=== PATIENT | female | born 1985 | race Caucasian/White ===

== ENCOUNTER 2025-02-05 10:01 | Emergency (ER) | payer OTHER, SELFPAY ==
[2025-02-05] VITALS (19 sets, daily range): BP systolic 130–158; BP diastolic 98–111; PULSE 85–111; TEMP 36.7; O2SAT 97–100; BMI 20.2
--- NOTE | 2025-02-05 10:09 | ECG_ITS ---
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 Measurements Intervals [place] Rate: 91 P: 63 [place]: 124 QRS: 94 QRSD: 92 T: 62 QT: 350 QTc: 399 Interpretive Statements 1100 Sinus rhythm 7102 Moderate right axis deviation Borderline ECG No previous ECG available for comparison Electronically Signed On 02-06-2025 15:10:07 EDT by ADEOLA CUEVAS M.D.
[2025-02-05 10:26] LABS: Basophils Percent Auto 0.4 % (0.2-2.0); Eosinophils Absolute Auto 0.1 10^3/uL (0.0-0.7); Eosinophils Percent Auto 0.9 % (0.9-7.0); Hematocrit 40.5 % (36.0-48.0); Hemoglobin 13.2 g/dL (12.0-16.0); Immature Granulocytes Abs Auto 0.03 10^3/uL (0.00-0.03); Immature Granulocytes Pct Auto 0.4 % (0.0-0.5); Lymphocytes Absolute Auto 1.7 10^3/uL (1.2-3.8); Lymphocytes Percent Auto 19.7 % (20.5-60.0); Mean Corpuscular HGB Conc 32.6 g/dL (29.9-35.2); Mean Corpuscular Hemoglobin 30.3 pg (26.7-34.0); Mean Corpuscular Volume 93.1 fL (81.0-99.0); Mean Platelet Volume 8.7 fL (9.5-13.5); Monocytes Absolute Auto 0.8 10^3/uL (0.3-0.8); Monocytes Percent Auto 8.8 % (1.7-12.0); Neutrophils Percent Auto 69.8 % (43.0-75.0); Platelet Count 393 10^3/uL (150-450); Red Blood Count 4.35 10^6/uL (4.20-5.40); Red Cell Distribution Width 13.5 % (11.0-15.0); White Blood Count 8.5 10^3/uL (4.0-11.0)
[2025-02-05 10:37] LABS: HCG Qualitative NEGATIVE (NEGATIVE); Internal Control Within Normal Limits
[2025-02-05 10:39] LABS: INR 1.05; Prothrombin Time 11.1 sec (9.0-11.6)
[2025-02-05 10:41] LABS: Alanine Aminotransferase 8 U/L (14-59); Albumin Globulin Ratio 1.2; Albumin Level 3.9 g/dL (3.4-5.0); Alkaline Phosphatase 95 U/L (46-116); Aspartate Amino Transferase 13 U/L (15-37); Bilirubin Total 0.4 mg/dL (0.2-1.0); Carbon Dioxide 29.1 mmol/L (21.0-32.0); Chloride 106 mmol/L (98-107); Estimated GFR (African America >60 (>=60 mL/min/1.73m^2); Estimated GFR (Non-African Ame >60 (>=60 mL/min/1.73m^2); Globulin 3.3 g/dL; Glucose 99 mg/dL (74-106); Potassium 4.1 mmol/L (3.5-5.1); Sodium 143 mmol/L (136-145); Total Protein 7.2 g/dL (6.4-8.2); Troponin I High Sensitivity <4.0 pg/mL (4.0-51.3)
[2025-02-05] MEDS: NITROGLYCERIN 0.4 MG BOTTLE SL (10:50)
[2025-02-05 11:02] LABS: Amphetamine Screen Urine NEGATIVE (NEGATIVE); Barbiturates Screen Urine NEGATIVE (NEGATIVE); Benzodiazepines Screen Urine NEGATIVE (NEGATIVE); Buprenorphine Screen Urine POSITIVE (NEGATIVE); Cannabinoid Screen Urine NEGATIVE (NEGATIVE); Cocaine Screen Urine NEGATIVE (NEGATIVE); Methadone Screen Urine NEGATIVE (NEGATIVE); Methamphetamines Screen Urine NEGATIVE (NEGATIVE); Opiate Screen Urine NEGATIVE (NEGATIVE); Oxycodone Screen Urine NEGATIVE (NEGATIVE); Phencyclidine Screen Urine NEGATIVE (NEGATIVE); Tricyclic Antidepressant Urine NEGATIVE (NEGATIVE)
[2025-02-05] MEDS: KETOROLAC TROMETHAMINE 30 MG/ML VIAL 15 MG IVP (11:27)
[2025-02-05] MEDS: FAMOTIDINE/PF 20 MG/2 ML VIAL IV (11:28)
[2025-02-05 11:45] LABS: Troponin I High Sensitivity <4.0 pg/mL (4.0-51.3)
--- NOTE | 2025-02-05 12:10 | ED.CHESTPAI1 ---
HPI - Chest Pain General Chief Complaint: Chest Pain Stated Complaint: CHEST PAIN Time Seen by Provider: 02/05/25 10:08 Source: patient Mode of arrival: ambulance Limitations: no limitations History of Present Illness HPI narrative: The patient is coming to the ER to be evaluated for left-sided chest pain, that the pain started usually with a headache in the left side addition to left sided neck pain and left arm pain and left side chest pain, patient mentioned that she have a history of smoking cigarette and she smoked less than 1 pack of cigarette daily The patient also have a history of coronary artery disease in her grandfather as well as her parents and in the specification of the age The patient apparently was evaluated for something similar almost 2 weeks ago in [facility] where she was discharged to follow-up with cardiology as outpatient for possible stress test She has been trying to reach cardiology but could not reach him to get a stress test done Patient takes Suboxone for opiate use disorder No history of trauma or fall and she does have a history of chronic neck pain although she does not have neck pain right now Related Data Previous Rx's ?Medication ?Instructions ?Recorded meloxicam 15 mg tablet 15 mg PO DAILY PRN pain #10 tabs 02/05/25 Allergies Allergy/AdvReac Type Severity Reaction Status Date / Time amoxicillin Allergy Severe Anaphylaxis Verified 02/05/25 10:07 tramadol Allergy Severe Anaphylaxis Verified 02/05/25 10:07 hydroxyzine (From Atarax) Allergy Intermediate Vomiting Verified 02/05/25 10:07 Review of Systems ROS Status of ROS 10 or more systems reviewed and unremarkable except as noted in history and below PFSH PFSH Social History Little interest or pleasure in doing things: not at all Feeling down, depressed, or hopeless: not at all Exam Narrative Exam Narrative: Nurses notes and vital signs reviewed and patient is not hypoxic. General: Well-appearing and in no apparent distress. Skin: Warm, dry, no pallor noted. No rash. Head: Normocephalic, atraumatic. Neck: Supple, non-tender. Cardiovascular: Regular Rate and Rhythm without murmur, gallop or rub. Respiratory: No accessory muscle use or respiratory distress. Lungs are clear to auscultation, no wheezing, rales or rhonchi Chest Wall: no tenderness Back: No midline thoracic or lumbar vertebral tenderness. No CVA tenderness Musculoskeletal: normal ROM, no calf or popliteal tenderness, no lower extremity edema/swelling GI: Abdomen is soft, non-distended. Normal bowel sounds. No masses appreciated. No tenderness to palpation. No rebound, guarding, or rigidity noted. Neurological: A&O x4. No cranial nerve dysfunction observed. Constitutional Vital Signs, click to edit/add: Last Vital Signs Temp 98.1 F 02/05/25 10:02 Pulse 86 02/05/25 12:40 Resp 18 02/05/25 12:40 BP 140/111 H 02/05/25 12:00 Pulse Ox 100 02/05/25 12:40 O2 Del Method Room Air 02/05/25 12:40 Course Vital Signs Vital signs: Vital Signs Temperature 98.1 F 02/05/25 10:02 Pulse Rate 107 H 02/05/25 10:02 Respiratory Rate 15 02/05/25 10:02 Blood Pressure 130/98 H 02/05/25 10:02 Pulse Oximetry 100 02/05/25 10:02 Oxygen Delivery Method Room Air 02/05/25 10:02 Temperature 98.1 F 02/05/25 10:02 Pulse Rate 86 02/05/25 12:40 Respiratory Rate 18 02/05/25 12:40 Blood Pressure 140/111 H 02/05/25 12:00 Pulse Oximetry 100 02/05/25 12:40 Oxygen Delivery Method Room Air 02/05/25 12:40 MDM - Chest Pain MDM Narrative Medical decision making narrative: The patient EKG was showing sinus rhythm with a heart rate of [address] elevation or depression Chest x-ray showed no acute pathology Patient CBC and chemistry showed no acute pathology with a troponin repeated twice The patient presentation is is not specific for coronary artery disease specially with the workup done showing no acute pathology although she does have risk factor with her smoking history and her family history She was referred to the stress test at the outpatient with cardiology service Right now she will be treated with Mobic for possible atypical chest pain The patient is to follow up with primary care physician in next 2-3 days or to return to the emergency department should any of the signs or symptoms worsen or new symptoms develop. The patient agrees with the following Diagnosis and Treatment plan and the patient will be discharged home. Lab Data Labs: Lab Results 02/05/25 02/05/25 02/05/25 Range/Units 10:13 10:43 11:21 WBC 8.5 (4.0-11.0) 10^3/uL RBC 4.35 (4.20-5.40) 10^6/uL Hgb 13.2 (12.0-16.0) g/dL Hct 40.5 (36.0-48.0) % MCV 93.1 (81.0-99.0) fL MCH 30.3 (26.7-34.0) pg MCHC 32.6 (29.9-35.2) g/dL RDW 13.5 (11.0-15.0) % Plt Count 393 (150-450) 10^3/uL MPV 8.7 L (9.5-13.5) fL Neut % (Auto) 69.8 (43.0-75.0) % Lymph % (Auto) 19.7 L (20.5-60.0) % [place] % (Auto) 8.8 (1.7-12.0) % Eos % (Auto) 0.9 (0.9-7.0) % Baso % (Auto) 0.4 (0.2-2.0) % Neut # (Auto) 6.0 (1.4-6.5) 10^3/uL Lymph # (Auto) 1.7 (1.2-3.8) 10^3/uL [place] # (Auto) 0.8 (0.3-0.8) 10^3/uL Eos # (Auto) 0.1 (0.0-0.7) 10^3/uL Baso # (Auto) 0.0 (0.0-0.1) 10^3/uL Abs Immat Gran (auto) 0.03 (0.00-0.03) 10^3/uL Imm/Tot Granulo (auto) 0.4 (0.0-0.5) % PT 11.1 (9.0-11.6) sec INR 1.05 Sodium 143 (136-145) mmol/L Potassium 4.1 (3.5-5.1) mmol/L Chloride 106 (98-107) mmol/L Carbon Dioxide 29.1 (21.0-32.0) mmol/L Anion Gap 12.0 BUN 7.0 (7.0-18.0) mg/dL Creatinine 0.78 (0.55-1.02) mg/dL Est GFR ( Amer) >60 (>=60 mL/min/1.73m^2) Est GFR (Non-Af Amer) >60 (>=60 mL/min/1.73m^2) BUN/Creatinine Ratio 9.0 Glucose 99 (74-106) mg/dL Calcium 9.0 (8.5-10.1) mg/dL Total Bilirubin 0.4 (0.2-1.0) mg/dL AST 13 L (15-37) U/L ALT 8 L (14-59) U/L Alkaline Phosphatase 95 (46-116) U/L Troponin I High Sens <4.0 L <4.0 L (4.0-51.3) pg/mL Total Protein 7.2 (6.4-8.2) g/dL Albumin 3.9 (3.4-5.0) g/dL Globulin 3.3 g/dL Albumin/Globulin Ratio 1.2 Serum HCG, Qual Negative (NEGATIVE) Urine Opiates Screen Negative (NEGATIVE) Ur Buprenorphine Scrn Positive A (NEGATIVE) Ur Oxycodone Screen Negative (NEGATIVE) Urine Methadone Screen Negative (NEGATIVE) Ur Barbiturates Screen Negative (NEGATIVE) U Tricyclic Antidepress Negative (NEGATIVE) Ur Phencyclidine Scrn Negative (NEGATIVE) Ur Amphetamines Screen Negative (NEGATIVE) U Methamphetamines Scrn Negative (NEGATIVE) U Benzodiazepines Scrn Negative (NEGATIVE) Urine Cocaine Screen Negative (NEGATIVE) U Cannabinoids Screen Negative (NEGATIVE) Discharge Plan Discharge Chief Complaint: Chest Pain Clinical Impression: Atypical chest pain, Chest pain Patient Disposition: Home, Self-Care Time of Disposition Decision: 12:10 Condition: Good Prescriptions / Home Meds: New meloxicam 15 mg tablet 15 mg PO DAILY PRN (Reason: pain ) Qty: 10 0RF Print Language: Indian Instructions: Chest Pain (DC) Referrals: Physician,Non-Staff, [Primary Care Provider] - 1 week KERRI BYERS MD [Physician] - As soon as possible ( [facility] [address] [place] [address]) Discharge Date/Time: 02/05/25 12:41
== END 2025-02-05 12:41 | disposition home or self-care (01) ==
PROVIDERS: Emergency Provider Emergency Medicine
DX: R07.89 Other chest pain (principal); F17.210 Nicotine dependence, cigarettes, uncomplicated; F11.20 Opioid dependence, uncomplicated; R07.9 Chest pain, unspecified
CPT/HCPCS: 36415; 71045; 80053; 80307; 84484; 84703; 85025; 85610; 93005; 96374; 96375; 99285; J1885; J3490

== ENCOUNTER 2025-03-04 19:15 | Observation (INO) | payer OTHER, SELFPAY ==
[2025-03-04] VITALS (7 sets, daily range): BP systolic 110–138; BP diastolic 71–94; PULSE 79–97; TEMP 36.8; O2SAT 97–100; BMI 21.1
--- NOTE | 2025-03-04 19:54 | ED_ITS ---
HPI HPI - General Adult General Chief complaint: Extremity Problem, Nontraumatic Stated complaint: UTI Back Pain Time Seen by Provider: 03/04/25 19:36 Source: patient Mode of arrival: walk-in Limitations: no limitations History of Present Illness HPI narrative: past history of lumbar stenosis chronic back pain. Presents with 3 day history of increased pain of her lower back. Pain into her left leg down to her foot. She is not incontinent of urine but has difficulty trying to start urinary flow. Last urination was this AM. States before 3 days ago she never had a problem starting her flow. Her legs are not weak and she is able to walk. No associated abdominal pain. No fever or injury. No recent procedure to her spine. states her left lower leg at he ankle was swollen earlier but this has resolved Related Data Home Medications ?Medication ?Instructions ?Recorded ?Confirmed aspirin 81 mg tablet,delayed 81 mg PO DAILY 03/04/25 0 03/04/25 release buprenorphine 8 mg-naloxone 2 mg 1 film sublingual KIRSTIE LY 03/04/25 03/04/25 sublingual film cholecalciferol (vitamin D3) 50 50 mcg PO DAILY 03/04/25 mcg (2,000 unit) tablet (Vitamin D3) hydroxyzine pamoate 50 mg capsule 50 mg PO TID PRN anx iety 03/04/25 03/04/25 naloxone 4 mg/actuation nasal spray 1 spray intranasal Q3M PRN opioid 03/04/25 03/04/25 overdose sertraline 50 mg tablet 50 mg PO DAILY 03/04/2502/05 Previous Rx's ?Medication ?Instructions ?Recorded meloxicam 15 mg tablet 15 mg PO DAILY PRN pain #10 tabs 02/05/25 Allergies Allergy/AdvReac Type Severity Reaction Status Date / Time amoxicillin Allergy Severe Anaphylaxis Verified 03/04/25 19:20 tramadol Allergy Severe Anaphylaxis Verified 03/04/25 19:20 hydroxyzine (From Atarax) Allergy Intermediate Vomiting Verified 03/04/25 19:20 Opioid HPI Opioid Management Most Recent Opioid Data: 2 Last Pain Scale 8 02/05/25, 12:11 Ur Phencyclidine Scrn, (NEGATIVE) Negative , 10:43 Review of Systems 2 ROS0 Status of ROS 10 or more systems reviewed and unremark able except as noted in history and below PFSH PFSH Social History Little interest or pleasure in doing things: not at all Feeling down, depressed, or hopeless: not at all Exam Constitutional Vital Signs, click to edit/add: Last Vital Signs Temp 98.3 F 03/04/25 19:21 Pulse 97 H 03/04/25 21:53 Resp 18 03/04/25 21:53 BP 138/88 03/04/25 21:53 Pulse Ox 100 03/04/25 21:53 O2 Del Method Room Air 03/04/25 19:21 Common normals: no apparent distress, average body habitus, oriented x3, no limitations, healthy appearing, alert and well nourished HENVA Common normals: normocephalic and head/scalp atraumatic Eye Common normals: PERRL and EOMs intact bilaterally Respiratory Common normals: normal respiratory effort, no retractions, no use of accessory muscles and clear to auscultation bilaterally Cardio Common normals: regular rate, regular rhythm, S1 normal heart sound and S2 normal heart sound GI Common normals: Normal to inspection, nondistended, normoactive bowel sounds present, soft to palpation and non-tender Back & Pelvis Back image (female): 2 1. focal tenderness. sacrum nontender Extremity Common normals: normal to inspection and full ROM Neuro Common normals: oriented x3, CN's II-XII intact bilaterally, moves all extremities and no focal motor deficits Psych Appearance: grossly normal Course Vital Signs Vital signs: Vital Signs Temperature 98.3 F 03/04/25 19:21 Pulse Rate 91 H 03/04/25 19:21 Respiratory Rate 17 03/04/25 19:21 Blood Pressure 132/92 H 03/04/25 19:21 Pulse Oximetry 99 03/04/25 19:21 Oxygen Delivery Method Room Air 03/04/25 19:21 Temperature 98.3 F 03/04/25 19:21 Pulse Rate 97 H 03/04/25 21:53 Respiratory Rate 18 03/04/25 21:53 Blood Pressure 138/88 03/04/25 21:53 Pulse Oximetry 100 03/04/25 21:53 Oxygen Delivery Method Room Air 03/04/25 19:21 Medical Decision Making [facility] Narrative Medical decision making narrative: chronic back pain patient. Known disc disease. Presents with left sciatica symptoms for the past 3 days. Pain radiates to her foot. leg is not weak. She is having difficulty starting her urinary flow which was not a problem in the past. Exam neg except for focal tenderness of her left back. Initial bladder scan with 60cc of urine. Patient given liter of normal saline and repeat scan with 260cc. Patient again describes difficulty trying to urinate but was able to produce 50cc. Discussed with Neurosurgeon at [facility] in [place] Dr Weaver. He stated because it has been 3 days the patient can stay here for MRI in the AM and we can re consult NeuroSurgery if needed. Lab Data Labs: Lab Results 03/04/25 03/04/25 Range/Units 20:00 20:05 WBC 9.1 (4.0-11.0) 10^3/uL RBC 4.08 L (4.20-5.40) 10^6/uL Hgb 12.7 (12.0-16.0) g/dL Hct 38.0 (36.0-48.0) % MCV 93.1 (81.0-99.0) fL MCH 31.1 (26.7-34.0) pg MCHC 33.4 (29.9-35.2) g/dL RDW 13.6 (11.0-15.0) % Plt Count 378 (150-450) 10^3/uL MPV 8.7 L (9.5-13.5) fL Neut % (Auto) 61.0 (43.0-75.0) % Lymph % (Auto) 28.5 (20.5-60.0) % [place] % (Auto) 8.5 (1.7-12.0) % Eos % (Auto) 1.3 (0.9-7.0) % Baso % (Auto) 0.4 (0.2-2.0) % Neut # (Auto) 5.5 (1.4-6.5) 10^3/uL Lymph # (Auto) 2.6 (1.2-3.8) 10^3/uL [place] # (Auto) 0.8 (0.3-0.8) 10^3/uL Eos # (Auto) 0.1 (0.0-0.7) 10^3/uL Baso # (Auto) 0.0 (0.0-0.1) 10^3/uL Abs Immat Gran (auto) 0.03 (0.00-0.03) 10^3/uL Imm/Tot Granulo (auto) 0.3 (0.0-0.5) % Sodium 142 (136-145) mmol/L Potassium 3.5 (3.5-5.1) mmol/L Chloride 105 (98-107) mmol/L Carbon Dioxide 28.2 (21.0-32.0) mmol/L Anion Gap 12.3 BUN 13.0 (7.0-18.0) mg/dL Creatinine 0.93 (0.55-1.02) mg/dL Est GFR ( Amer) >60 (>=60 mL/min/1.73m^2) Est GFR (Non-Af Amer) >60 (>=60 mL/min/1.73m^2) BUN/Creatinine Ratio 14.0 Glucose 88 (74-106) mg/dL Calcium 8.8 (8.5-10.1) mg/dL C-Reactive Protein <0.50 (<=0.50) mg/dL Urine Color Yellow (YELLOW) Urine Clarity Sl cloudy (CLEAR) Urine pH 6.0 (5.0-9.0) Ur Specific [place] 1.025 (1.005-1.025) Urine Protein Trace (NEG/TRACE) mg/dL Urine Glucose (UA) Negative (NEGATIVE) mg/dL Urine Ketones Trace A (NEGATIVE) mg/dL Urine Occult Blood Negative (NEGATIVE) Urine Nitrite Negative (NEGATIVE) Urine Bilirubin Negative (NEGATIVE) Urine Urobilinogen 1.0 (0.2-1.0) EU/dL Ur Leukocyte Esterase Small A (NEGATIVE) Urine RBC 0-2 (0-2) #/HPF Urine WBC 2-5 A (NONE SEEN) #/HPF Ur Squamous Epith Cells Many A (NONE/RARE) #/LPF Urine Crystals None seen (None Seen) #/HPF Urine Bacteria Moderate A (NONE SEEN) #/HPF Urine Casts None seen (NONE SEEN) #/LPF Urine Mucus Trace A (NONE SEEN) Ur [place] [place] Dis[place] Chief Complaint: Extremity Problem, Nontraumatic Clinical Impression: Left sided sciatica, Urinary retention with incomplete bladder emptying Patient Disposition: Admitted as Observation
[2025-03-04 20:11] LABS: Basophils Percent Auto 0.4 % (0.2-2.0); Eosinophils Absolute Auto 0.1 10^3/uL (0.0-0.7); Eosinophils Percent Auto 1.3 % (0.9-7.0); Hemoglobin 12.7 g/dL (12.0-16.0); Immature Granulocytes Abs Auto 0.03 10^3/uL (0.00-0.03); Immature Granulocytes Pct Auto 0.3 % (0.0-0.5); Lymphocytes Absolute Auto 2.6 10^3/uL (1.2-3.8); Lymphocytes Percent Auto 28.5 % (20.5-60.0); Mean Corpuscular HGB Conc 33.4 g/dL (29.9-35.2); Mean Corpuscular Hemoglobin 31.1 pg (26.7-34.0); Mean Corpuscular Volume 93.1 fL (81.0-99.0); Mean Platelet Volume 8.7 fL (9.5-13.5); Monocytes Absolute Auto 0.8 10^3/uL (0.3-0.8); Monocytes Percent Auto 8.5 % (1.7-12.0); Neutrophils Absolute Auto 5.5 10^3/uL (1.4-6.5); Platelet Count 378 10^3/uL (150-450); Red Blood Count 4.08 10^6/uL (4.20-5.40); Red Cell Distribution Width 13.6 % (11.0-15.0); White Blood Count 9.1 10^3/uL (4.0-11.0)
[2025-03-04 20:13] LABS: Bilirubin Urine NEGATIVE (NEGATIVE); Blood Urine NEGATIVE (NEGATIVE); Clarity Urine SL CLOUDY (CLEAR); Color Urine YELLOW (YELLOW); Glucose Urine UA NEGATIVE (NEGATIVE); Ketones Urine TRACE mg/dL (NEGATIVE); Leukocyte Esterase Urine SMALL (NEGATIVE); Nitrite Urine NEGATIVE (NEGATIVE); Protein Urine TRACE mg/dL (NEG/TRACE); Specific Gravity Urine 1.025 (1.005-1.025)
[2025-03-04] MEDS: 0.9 % SODIUM CHLORIDE 1,000 ML 999 ML IV (20:20)
[2025-03-04 20:22] LABS: Anion Gap 12.3; Calcium 8.8 mg/dL (8.5-10.1); Carbon Dioxide 28.2 mmol/L (21.0-32.0); Chloride 105 mmol/L (98-107); Estimated GFR (African America >60 (>=60 mL/min/1.73m^2); Estimated GFR (Non-African Ame >60 (>=60 mL/min/1.73m^2); Glucose 88 mg/dL (74-106); Potassium 3.5 mmol/L (3.5-5.1); Sodium 142 mmol/L (136-145)
[2025-03-04 20:25] LABS: Bacteria Urine MODERATE #/HPF (NONE SEEN); Cast Seen? NONE SEEN #/LPF (NONE SEEN); Crystals Seen? None Seen #/HPF (None Seen); Mucus Urine TRACE (NONE SEEN); RBC Urine 0-2 #/HPF (0-2); Squamous Epithelial Cell Urine MANY #/LPF (NONE/RARE); Urine Culture Indicated YES-FRMC
[2025-03-04 20:41] LABS: C Reactive Protein <0.50 mg/dL (<=0.50)
--- NOTE | 2025-03-04 22:34 | PC.NURSE ---
i informed this patient that [facility] in [place] at this time unable accept you so we are calling around to other hospitals
--- NOTE | 2025-03-04 23:24 | PC.NURSE ---
this patient has been updated of her admission to this hospital but right waiting on a room number and waiting on pharmacy to verify medication that Dr buenrostro has ordered for you. this patient replied ok and this patient voices no other concerns and shows no signs of distress
[2025-03-04] MEDS: ACETAMINOPHEN 325 MG TABLET 650 MG PO (23:44)
[2025-03-04] MEDS: ORPHENADRINE 60 MG/2 ML VIAL IV (23:44)
[2025-03-05 00:33] VITALS: BP 133/72; PULSE 74; TEMP 36.6; O2SAT 96; BMI 20.6
--- NOTE | 2025-03-05 00:40 | PC.NURSE ---
this patient awake and alert lying n her right side on the bed. this patient voices no complaints and her back pain is down to a 6/10 this patient has in cellphone on the bed with her. i placed 1 pair of tennis shoes in a bag. in the other bag I placed 1 black t-shirt, 1 blue jeans, on top of the blue jeans (while this patient watched me put her black wallet in this bag. then i placed a black puller out jacket
[2025-03-05 04:00] VITALS: BP 107/71; PULSE 69; TEMP 36.6; O2SAT 94
[2025-03-05] MEDS: ACETAMINOPHEN 325 MG TABLET 650 MG PO ×3 (05:21→17:51)
[2025-03-05 06:09] LABS: Hematocrit 36.4 % (36.0-48.0); Hemoglobin 12.3 g/dL (12.0-16.0); Mean Corpuscular HGB Conc 33.8 g/dL (29.9-35.2); Mean Corpuscular Hemoglobin 31.6 pg (26.7-34.0); Mean Corpuscular Volume 93.6 fL (81.0-99.0); Mean Platelet Volume 8.9 fL (9.5-13.5); Platelet Count 355 10^3/uL (150-450); Red Blood Count 3.89 10^6/uL (4.20-5.40); White Blood Count 7.5 10^3/uL (4.0-11.0)
[2025-03-05 06:23] LABS: Anion Gap 11.7; BUN Creatinine Ratio 14.5; Calcium 8.3 mg/dL (8.5-10.1); Carbon Dioxide 25.6 mmol/L (21.0-32.0); Chloride 108 mmol/L (98-107); Estimated GFR (African America >60 (>=60 mL/min/1.73m^2); Estimated GFR (Non-African Ame >60 (>=60 mL/min/1.73m^2); Glucose 98 mg/dL (74-106); Potassium 4.3 mmol/L (3.5-5.1); Sodium 141 mmol/L (136-145)
[2025-03-05 07:34] VITALS: BP 123/83; PULSE 74; TEMP 36.6; O2SAT 94
[2025-03-05] MEDS: SERTRALINE HCL 50 MG TABLET PO (09:15)
[2025-03-05] MEDS: CHOLECALCIFEROL (VITAMIN D3) 25 MCG/1,000 UNITS TABLET 50 MCG PO (09:15)
[2025-03-05] MEDS: ASPIRIN 81 MG TABLET.DR PO (09:20)
[2025-03-05] MEDS: NALOXONE HCL SL (09:23)
[2025-03-05] MEDS: BUPRENORPHINE HCL SL (09:23)
[2025-03-05] MEDS: METHYLPREDNISOLONE SOD SUCC PF 125 MG/2 ML VIAL 60 MG IVP ×2 (10:08→15:13)
[2025-03-05] MEDS: ORPHENADRINE 60 MG/2 ML VIAL IV (10:09)
[2025-03-05] MEDS: LEVOFLOXACIN IN DEXTROSE 5 % 750 MG/150 ML PREMIX 100 MG IV (10:17)
--- NOTE | 2025-03-05 11:37 | CM.NOTE ---
Rounds made with Dr. Palacios. Plan of care reviewed with Barbara along with any abnormal findings.
--- NOTE | 2025-03-05 11:38 | PC.NURSE ---
1050 went down with radiology for MRI
--- NOTE | 2025-03-05 11:38 | PC.NURSE ---
1130 came back to floor from radiology.
[2025-03-05] MEDS: PREGABALIN 75 MG CAPSULE PO (11:41)
--- NOTE | 2025-03-05 11:41 | PC.NURSE ---
Patient was made aware that taking Lyrica can give false positive on drug screen. Patient states she will have to show physician list of meds taken in the hospital.
[2025-03-05 11:48] VITALS: BP 133/80; PULSE 75; TEMP 36.8; O2SAT 94
--- NOTE | 2025-03-05 11:51 | PM.HP ---
HPI H&P: HPI History of Present Illness Chief complaint: UTI Back Pain, URINARY RETENTION, INCOMPLETE BLADD Narrative: 39 y/o female with a history of lumbar spinal stenosis and prior surgeries to ER with increased back pain with radiculopathy. Over past 3 days developed pain into left gluteal region and down left leg. Numbness in leg and weakness in leg. Developed urinary hesitancy and difficulty voiding. To ER and concern of cauda equina syndrome. Discussed with neurosurgery who recommended admission and MRI. UA suggestive of UTI. Admitted for treatment. Continued pain and numbness this am. Opioid HPI Opioid Management Most Recent Pain and Opioid Data: Last Pain Scale 9 Today, 10:10 Last Pain Assessment Today, 01:00 Last MAR Pain Assessment 03/04/25, 23:44 Last ORT Total Score 7 Today, 00:33 Last ORT Risk Category Moderate Risk Today, 00:33 Ur Phencyclidine Scrn, (NEGATIVE) Negative 02/05/25, 10:43 Review of Systems ROS Constitutional Denies: fever, chills or fatigue Cardiovascular Denies: chest pain, palpitations or edema Respiratory Denies: shortness of breath, cough or wheezing Gastrointestinal Denies: abdominal pain, nausea, vomiting or diarrhea Genitourinary Reports: difficulty voiding; Denies: painful urination [facility] Medical History (Updated 03/05/25 @ 09:19 by Dorian Palacios MD) Atypical chest pain ?R07.89 - Other chest pain (ICD-10) Chest pain ?R07.9 - Chest pain, unspecified (ICD-10) Hyperlipemia ?E78.5 - Hyperlipidemia, unspecified (ICD-10) PTSD (post-traumatic stress disorder) ?F43.10 - Post-traumatic stress disorder, unspecified (ICD-10) Bipolar 1 disorder ?F31.9 - Bipolar disorder, unspecified (ICD-10) HTN (hypertension) ?I10 - Essential (primary) hypertension (ICD-10) Degenerative disc disease COPD (chronic obstructive pulmonary disease) ?J44.9 - Chronic obstructive pulmonary disease, unspecified (ICD-10) Hx of renal calculi ?Z87.442 - Personal history of urinary calculi (ICD-10) Family History (Updated 03/05/25 @ 00:46 by Lisa Palomares RN) Grandmother Family history of CHF (congestive heart failure) Mother Family history of COPD (chronic obstructive pulmonary disease) Family history of cancer Family history of diabetes mellitus Family history of hypertension Family history of myocardial infarction Social History (Updated 03/05/25 @ 00:47 by Lisa Palomares RN) Within the past year, how often did you have a drink containing alcohol: never Score interpretation: A score less than 3 is consistent with normal alcohol consumption. Smoking status: Current every day smoker Non-prescribed substance use: former substance user Highest level of school completed/degree received: GED or equivalent Are you now , , , , never or living with a partner: In a typical week, how many times do you talk on the telephone with family, friends, or neighbors: 3 or more times per week How often do you get together with friends or relatives: 3 or more times per week Little interest or pleasure in doing things: not at all Feeling down, depressed, or hopeless: not at all Feel stressed/tense/nervous/anxious/difficulty sleeping: decline to answer Gender Identity: female Meds Home Medications and Allergies Home Medications ?Medication ?Instructions ?Recorded ?Confirmed ?Type aspirin 81 mg tablet,delayed 81 mg PO DAILY 03/04/25 03/04/25 History release buprenorphine 8 mg-naloxone 2 mg 1 film sublingual DAILY 03/04/25 03/04/25 History sublingual film cholecalciferol (vitamin D3) 50 50 mcg PO DAILY 03/04/25 03/04/25 History mcg (2,000 unit) tablet (Vitamin D3) hydroxyzine pamoate 50 mg capsule 50 mg PO TID PRN anxiety 03/04/25 03/04/25 History naloxone 4 mg/actuation nasal spray 1 spray intranasal Q3M PRN opioid 03/04/25 03/04/25 History overdose sertraline 50 mg tablet 50 mg PO DAILY 03/04/25 03/04/25 History Allergies Allergy/AdvReac Type Severity Reaction Status Date / Time amoxicillin Allergy Severe Anaphylaxis Verified 03/04/25 19:20 tramadol Allergy Severe Anaphylaxis Verified 03/04/25 19:20 hydroxyzine (From Atarax) Allergy Intermediate Vomiting Verified 03/04/25 19:20 Exam Constitutional Vital Signs, click to edit/add: Last Vital Signs Temp 97.8 F 03/05/25 07:34 Pulse 74 03/05/25 07:34 Resp 16 03/05/25 07:34 BP 123/83 03/05/25 07:34 Pulse Ox 94 L 03/05/25 07:34 O2 Del Method Room Air 03/05/25 07:34 Documenting provider has reviewed patient's vital signs: yes Common normals: no apparent distress, oriented x3 and alert HENMT Common normals: normocephalic Eye Common normals: PERRL and EOMs intact bilaterally Respiratory Common normals: normal respiratory effort and clear to auscultation bilaterally Cardio Common normals: regular rate, regular rhythm, no gallops, no murmurs and no rub GI Common normals: Normal to inspection, nondistended, normoactive bowel sounds present and non-tender Extremity Common normals: no pedal edema Results Labs Labs: Short CBC 03/04/25 03/05/25 Range/Units 20:00 06:05 WBC 9.1 7.5 (4.0-11.0) 10^3/uL Hgb 12.7 12.3 (12.0-16.0) g/dL Hct 38.0 36.4 (36.0-48.0) % Plt Count 378 355 (150-450) 10^3/uL BMP 03/04/25 03/05/25 20:00 06:05 Sodium 142 141 Potassium 3.5 4.3 Chloride 105 108 H Carbon Dioxide 28.2 25.6 BUN 13.0 11.0 Creatinine 0.93 0.76 Glucose 88 98 Calcium 8.8 8.3 L Urine 03/04/25 Range/Units 20:05 Urine Color Yellow (YELLOW) Urine Clarity Sl cloudy (CLEAR) Urine pH 6.0 (5.0-9.0) Ur Specific [place] 1.025 (1.005-1.025) Urine Protein Trace (NEG/TRACE) mg/dL Urine Glucose (UA) Negative (NEGATIVE) mg/dL Assessment and Plan Assessment and Plan (1) Lumbar spinal stenosis: (2) Left sided sciatica: (3) UTI (urinary tract infection): (4) Urinary retention with incomplete bladder emptying: (5) Hx of drug abuse: Plan Continued pain and radicular symptoms. MRI ordered. Start solu-medrol for inflammation and lyrica for nerve pain. Start norflex. History of drug abuse and resume suboxone. Start PT. Resume home medication.
[2025-03-05 16:00] VITALS: BP 115/77; PULSE 82; TEMP 36.6; O2SAT 96
--- NOTE | 2025-03-05 17:14 | PC.NURSE ---
updated dr angel on MRI results. He is aware and acknowledged [phone]
--- NOTE | 2025-03-06 15:34 | CM.DCFOLLOWU ---
Person spoke with:patient How are you feeling? having pain How is your pain? there is pain, hoping it gets better Did you understand your discharge instructions?yes Do you have any questions about your discharge instructions?no Were you given any prescriptions at discharge?yes Were you able to get your prescriptions filled?yes yes Do you understand how to take your medications as ordered?yes Do you have any questions about your follow up appointment and do you plan to keep your follow up appointment? no questions, does not have PCP. Suggested calling Dr. Palacios office Sunday since he saw her in hospital. She lives in [place] and does not have a vehicle Is there anything else that you would like to discuss?no Questions/Comments/Concerns/Other:none
== END 2025-03-05 19:12 | disposition home or self-care (01) ==
LOC: ER 23:08 → MS 03-05 00:30
PROVIDERS: Registered Nurse; Admitting Provider Family Medicine; Emergency Provider Internal Medicine; Visit Provider Family Medicine
DX: M51.16 Intervertebral disc disorders with radiculopathy, lumbar region (principal); R33.9 Retention of urine, unspecified; N39.0 Urinary tract infection, site not specified; M48.061 Spinal stenosis, lumbar region without neurogenic claudication; F19.11 Other psychoactive substance abuse, in remission; F17.200 Nicotine dependence, unspecified, uncomplicated
CPT/HCPCS: 36415; 51798; 72148; 80048; 81001; 85025; 85027; 86140; 87086; 96365; 96366; 96375; 96376; 99285; G0378; J2360; J2919

== ENCOUNTER 2025-03-11 16:50 | Emergency (ER) | payer OTHER, SELFPAY ==
[2025-03-11] VITALS (9 sets, daily range): BP systolic 105; BP diastolic 71; PULSE 82–93; TEMP 36.6; O2SAT 99; BMI 20.7
--- NOTE | 2025-03-11 17:13 | ED_ITS ---
HPI HPI - General Adult General Chief complaint: Back Pain/Injury Stated complaint: back pain Time Seen by Provider: 03/11/25 17:00 Source: patient Mode of arrival: walk-in History of Present Illness HPI narrative: Patient is a 39-year-old female with a history of drug abuse who presents to the emergency department for continued back pain. Patient was seen in this emergency department last week for left low sided back pain radiating into the left leg. She was admitted and had an MRI of the lumbar spine performed which showed disc protrusion at L5/S1. She was discharged from the hospital on Lyrica, Robaxin, steroid taper. She states she continues to have pain in the back, however since yesterday her neck is now hurting and she has tingling to her arms. She states today earlier she noted pain in the sternum with deep breathing. She has had no cough, hemoptysis, no leg swelling. She does not take control and she has no history of DVT or PE. She arrives to the emergency department without tachycardia or hypoxia. She has had 2 previous surgeries on her neck. Related Data Home Medications ?Medication ?Instructions ?Recorded ?Confirmed aspirin 81 mg tablet,delayed 81 mg PO DAILY 03/04/25 0 03/11/25 release buprenorphine 8 mg-naloxone 2 mg 1 film sublingual KIRSTIE LY 03/04/25 03/11/25 sublingual film cholecalciferol (vitamin D3) 50 50 mcg PO DAILY 03/11/25 mcg (2,000 unit) tablet (Vitamin D3) hydroxyzine pamoate 50 mg capsule 50 mg PO TID PRN anx iety 03/04/25 03/11/25 naloxone 4 mg/actuation nasal spray 1 spray intranasal Q3M PRN opioid 03/04/25 03/11/25 overdose sertraline 50 mg tablet 50 mg PO DAILY 03/04/25 0505/29 Previous Rx's ?Medication ?Instructions ?Recorded levofloxacin 750 mg tablet 750 mg PO DAILY 7 days #7 t abs 03/05/25 methocarbamol 750 mg tablet 750 mg PO Q6H PRN muscle s pasm #30 03/05/25 tabs pregabalin 75 mg capsule 75 mg PO BID #60 caps ketorolac 10 mg tablet 10 mg PO TID PRN pain #10 ta bs 03/11/25 Allergies Allergy/AdvReac Type Severity Reaction Status Date / Time amoxicillin Allergy Severe Anaphylaxis Verified 03/04/25 19:20 tramadol Allergy Severe Anaphylaxis Verified 03/04/25 19:20 hydroxyzine (From Atarax) Allergy Intermediate Vomiting Verified 03/04/25 19:20 Opioid HPI Opioid Management Most Recent Opioid Data: Last Pain Scale 9 Today, 17:43 Last Pain Assessment 03/05/25, 01:00 Last MAR Pain Assessment Today, 17:43 Last ORT Total Score 7 03/05/25, 00:33 Last ORT Risk Category Moderate Risk 03/05/25, 00:33 Ur Phencyclidine Scrn, (NEGATIVE) Negative , 10:43 Review of Systems ROS Constitutional Denies: fever or chills Ears, nose, mouth, and throat Denies: throat pain or nasal congestion Cardiovascular Reports: chest pain Respiratory Denies: shortness of breath, cough or coughing up blood Gastrointestinal Denies: abdominal pain, nausea or vomiting Musculoskeletal Reports: back pain and neck pain Integumentary/Breast Denies: rash Neurological Reports: numbness in extremities Hematologic/Lymphatic Denies: easy bruising or easy bleeding [facility] Medical History (Updated 03/11/25 @ 18:41 by BECCA Boothe) Herniated nucleus pulposus, L5-S1, left ?M51.27 - Other intervertebral disc displacement, lumbosacral region (ICD-10) Lumbar spinal stenosis ?M48.061 - Spinal stenosis, lumbar region without neurogenic claudication (ICD-10) Hx of drug abuse ?F19.11 - Other psychoactive substance abuse, in remission (ICD-10) Atypical chest pain ?R07.89 - Other chest pain (ICD-10) Chest pain ?R07.9 - Chest pain, unspecified (ICD-10) Hyperlipemia ?E78.5 - Hyperlipidemia, unspecified (ICD-10) PTSD (post-traumatic stress disorder) ?F43.10 - Post-traumatic stress disorder, unspecified (ICD-10) Bipolar 1 disorder ?F31.9 - Bipolar disorder, unspecified (ICD-10) HTN (hypertension) ?I10 - Essential (primary) hypertension (ICD-10) Degenerative disc disease COPD (chronic obstructive pulmonary disease) ?J44.9 - Chronic obstructive pulmonary disease, unspecified (ICD-10) Hx of renal calculi ?Z87.442 - Personal history of urinary calculi (ICD-10) Family History (Updated 03/05/25 @ 00:46 by Lisa Palomares RN) Grandmother Family history of CHF (congestive heart failure) Mother Family history of COPD (chronic obstructive pulmonary disease) Family history of cancer Family history of diabetes mellitus Family history of hypertension Family history of myocardial infarction Social History Within the past year, how often did you have a drink containing alcohol: never Score interpretation: A score less than 3 is consistent with normal alcohol consumption. Smoking status: Current every day smoker Non-prescribed substance use: former substance user Highest level of school completed/degree received: GED or equivalent Are you now , , , , never or living with a partner: In a typical week, how many times do you talk on the telephone with family, friends, or neighbors: 3 or more times per week How often do you get together with friends or relatives: 3 or more times per week Little interest or pleasure in doing things: not at all Feeling down, depressed, or hopeless: not at all Feel stressed/tense/nervous/anxious/difficulty sleeping: decline to answer Gender Identity: female Exam Narrative Exam Narrative: Gen.: Awake, alert, in no distress, lying comfortably on exam cart reading a book Head: Normocephalic, atraumatic ENT: Moist mucous membranes, diffuse tenderness of the cervical spine with no bony point tenderness or step-off Respiratory: No respiratory distress, lungs clear bilaterally Cardio: Regular rate and rhythm Back: No bony point tenderness of the T-spine or L-spine with diffuse tenderness of the left paraspinal muscles of the lumbar spine Extremities: Moves extremities equally, no injuries noted Psych: Normal mood and affect Neuro: No focal neuro deficit, normal artists' model strength in the bilateral hands with normal dorsiflexion and plantarflexion of the lower extremities. Patient noted to ambulate with a steady gait down the hallway to her exam room Skin: Warm, dry, intact Constitutional Vital Signs, click to edit/add: Last Vital Signs Temp 97.9 F 03/11/25 17:03 Pulse 88 03/11/25 18:20 Resp 19 03/11/25 18:20 BP 105/71 03/11/25 17:06 Pulse Ox 99 03/11/25 17:03 O2 Del Method Room Air 03/11/25 17:03 Course Vital Signs Vital signs: Vital Signs Temperature 97.9 F 03/11/25 17:03 Pulse Rate 91 H 03/11/25 17:03 Respiratory Rate 18 03/11/25 17:03 Blood Pressure 105/71 03/11/25 17:03 Pulse Oximetry 99 03/11/25 17:03 Oxygen Delivery Method Room Air 03/11/25 17:03 Temperature 97.9 F 03/11/25 17:03 Pulse Rate 88 03/11/25 18:20 Respiratory Rate 19 03/11/25 18:20 Blood Pressure 105/71 03/11/25 17:06 Pulse Oximetry 99 03/11/25 17:03 Oxygen Delivery Method Room Air 03/11/25 17:03 Medical Decision Making MDM Narrative Medical decision making narrative: Labs are unremarkable, patient within normal EKG. She has no PE risk factors and stable vital signs. She was medicated with Toradol and Solu-Medrol in the ER. CT of the cervical spine is stable, 2 view chest x-ray with no evidence of acute process. Patient was made aware of the limitations of medications while she is on Suboxone and already taking a steroid taper, muscle relaxant, Lyrica. She was offered Toradol for pain control for home, follow-up on Sunday with PCP and return to the ER if symptoms change or worsen SHARED APC VISIT, PHYSICIAN ATTESTATION: [id number] I performed a substantive part of the MDM during the patient?s E/M visit. I personally evaluated and examined the patient. I personally made or approved the documented management plan and acknowledge its risk of complications. Medical Records Medical records reviewed: Yes I reviewed the patient's medical records Lab Data Lab results reviewed: Yes I reviewed the patient's lab results Labs: Lab Results 03/11/25 Range/Units 17:54 WBC 8.5 (4.0-11.0) 10^3/uL RBC 4.34 (4.20-5.40) 10^6/uL Hgb 13.4 (12.0-16.0) g/dL Hct 40.5 (36.0-48.0) % MCV 93.3 (81.0-99.0) fL MCH 30.9 (26.7-34.0) pg MCHC 33.1 (29.9-35.2) g/dL RDW 14.0 (11.0-15.0) % Plt Count 405 (150-450) 10^3/uL MPV 8.7 L (9.5-13.5) fL Neut % (Auto) 53.9 (43.0-75.0) % Lymph % (Auto) 35.8 (20.5-60.0) % Kimball % (Auto) 7.2 (1.7-12.0) % Eos % (Auto) 2.4 (0.9-7.0) % Baso % (Auto) 0.5 (0.2-2.0) % Neut # (Auto) 4.6 (1.4-6.5) 10^3/uL Lymph # (Auto) 3.0 (1.2-3.8) 10^3/uL Kimball # (Auto) 0.6 (0.3-0.8) 10^3/uL Eos # (Auto) 0.2 (0.0-0.7) 10^3/uL Baso # (Auto) 0.0 (0.0-0.1) 10^3/uL Abs Immat Gran (auto) 0.02 (0.00-0.03) 10^3/uL Imm/Tot Granulo (auto) 0.2 (0.0-0.5) % Sodium 136 (136-145) mmol/L Potassium 3.7 (3.5-5.1) mmol/L Chloride 101 (98-107) mmol/L Carbon Dioxide 29.5 (21.0-32.0) mmol/L Anion Gap 9.2 BUN 14.0 (7.0-18.0) mg/dL Creatinine 0.78 (0.55-1.02) mg/dL Est GFR ( Amer) >60 (>=60 mL/min/1.73m^2) Est GFR (Non-Af Amer) >60 (>=60 mL/min/1.73m^2) BUN/Creatinine Ratio 17.9 Glucose 109 H (74-106) mg/dL Calcium 8.7 (8.5-10.1) mg/dL Total Bilirubin 0.3 (0.2-1.0) mg/dL AST 13 L (15-37) U/L ALT 11 L (14-59) U/L Alkaline Phosphatase 86 (46-116) U/L Troponin I High Sens <4.0 L (4.0-51.3) pg/mL Total Protein 7.0 (6.4-8.2) g/dL Albumin 3.8 (3.4-5.0) g/dL Globulin 3.2 g/dL Albumin/Globulin Ratio 1.2 Imaging Data Chest x-ray: Attestation: I have reviewed the pertinent imaging results. Radiologist's impression: NAD CT cervical spine: Attestation: I have reviewed the pertinent imaging results. Radiologist's impression: No acute process, stable hardware from cervical fusion ECG Data Attestation: I personally reviewed and interpreted this ECG as follows: (Normal sinus rhythm at a rate of 82, no acute ST elevation or ectopy. EKG reviewed by attending physician) Discharge Plan Discharge Chief Complaint: Back Pain/Injury Clinical Impression: Acute neck pain, Low back pain, Chest pain Patient Disposition: Home, Self-Care Time of Disposition Decision: 18:41 Condition: Good Prescriptions / Home Meds: New ketorolac 10 mg tablet 10 mg PO TID PRN (Reason: pain) Qty: 10 0RF No Action aspirin 81 mg tablet,delayed release (DR/EC) 81 mg PO DAILY sertraline 50 mg tablet 50 mg PO DAILY buprenorphine-naloxone 8-2 mg film 1 film sublingual DAILY cholecalciferol (vitamin D3) [Vitamin D3] 50 mcg (2,000 unit) tablet 50 mcg PO DAILY hydroxyzine pamoate 50 mg capsule 50 mg PO TID PRN (Reason: anxiety) naloxone 4 mg/actuation spray,non-aerosol 1 spray INTRANASAL Q3M PRN (Reason: opioid overdose) pregabalin 75 mg Capsule 75 mg PO BID Qty: 60 0RF levofloxacin 750 mg tablet 750 mg PO DAILY 7 Days Qty: 7 0RF methocarbamol 750 mg tablet 750 mg PO Q6H PRN (Reason: muscle spasm) Qty: 30 0RF Print Language: Japanese Instructions: Acute Low Back Pain (ED), Acute Neck Pain (ED) Referrals: Physician,Non-Staff, MD [Primary Care Provider] - 1 week
--- NOTE | 2025-03-11 17:13 | ECG_ITS ---
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 Measurements Intervals [place] Rate: 82 P: 65 [place]: 122 QRS: 99 QRSD: 94 T: 83 QT: 378 QTc: 417 Interpretive Statements 1100 Sinus rhythm 7102 Moderate right axis deviation 9110 normal ECG Compared to ECG 02/05/2025 10:05:02 No significant changes Electronically Signed On 03-11-2025 18:18:44 EDT by ADEOLA CUEVAS M.D.
[2025-03-11] MEDS: METHYLPREDNISOLONE SOD SUCC PF 125 MG/2 ML VIAL IM (17:42)
[2025-03-11] MEDS: KETOROLAC TROMETHAMINE 60 MG/2 ML VIAL IM (17:43)
[2025-03-11 18:05] LABS: Basophils Percent Auto 0.5 % (0.2-2.0); Eosinophils Absolute Auto 0.2 10^3/uL (0.0-0.7); Eosinophils Percent Auto 2.4 % (0.9-7.0); Hematocrit 40.5 % (36.0-48.0); Hemoglobin 13.4 g/dL (12.0-16.0); Immature Granulocytes Abs Auto 0.02 10^3/uL (0.00-0.03); Immature Granulocytes Pct Auto 0.2 % (0.0-0.5); Lymphocytes Percent Auto 35.8 % (20.5-60.0); Mean Corpuscular HGB Conc 33.1 g/dL (29.9-35.2); Mean Corpuscular Hemoglobin 30.9 pg (26.7-34.0); Mean Corpuscular Volume 93.3 fL (81.0-99.0); Mean Platelet Volume 8.7 fL (9.5-13.5); Monocytes Absolute Auto 0.6 10^3/uL (0.3-0.8); Monocytes Percent Auto 7.2 % (1.7-12.0); Neutrophils Absolute Auto 4.6 10^3/uL (1.4-6.5); Neutrophils Percent Auto 53.9 % (43.0-75.0); Platelet Count 405 10^3/uL (150-450); Red Blood Count 4.34 10^6/uL (4.20-5.40); White Blood Count 8.5 10^3/uL (4.0-11.0)
[2025-03-11 18:29] LABS: Alanine Aminotransferase 11 U/L (14-59); Albumin Globulin Ratio 1.2; Albumin Level 3.8 g/dL (3.4-5.0); Alkaline Phosphatase 86 U/L (46-116); Anion Gap 9.2; Aspartate Amino Transferase 13 U/L (15-37); BUN Creatinine Ratio 17.9; Bilirubin Total 0.3 mg/dL (0.2-1.0); Calcium 8.7 mg/dL (8.5-10.1); Carbon Dioxide 29.5 mmol/L (21.0-32.0); Chloride 101 mmol/L (98-107); Estimated GFR (African America >60 (>=60 mL/min/1.73m^2); Estimated GFR (Non-African Ame >60 (>=60 mL/min/1.73m^2); Globulin 3.2 g/dL; Glucose 109 mg/dL (74-106); Potassium 3.7 mmol/L (3.5-5.1); Sodium 136 mmol/L (136-145); Troponin I High Sensitivity <4.0 pg/mL (4.0-51.3)
== END 2025-03-11 18:48 | disposition home or self-care (01) ==
PROVIDERS: Physician Assistant; Emergency Provider Emergency Medicine
DX: M54.2 Cervicalgia (principal); M54.50 Low back pain, unspecified; R07.9 Chest pain, unspecified; F17.200 Nicotine dependence, unspecified, uncomplicated; F19.11 Other psychoactive substance abuse, in remission; Z98.0 Intestinal bypass and anastomosis status; Z98.1 Arthrodesis status
CPT/HCPCS: 36415; 71046; 72125; 80053; 84484; 85025; 93005; 96372; 99285; J1885; J2919

== ENCOUNTER 2025-03-24 10:00 | Outpatient (OUT) | payer OTHER, SELFPAY ==
--- OUTSIDE RECORDS SUMMARY | 2025-03-24 10:05 | XMS_ITS | CCD ---
Author Organization [facility] Care Team Providers Care Business Office Director Name Role Phone Unavailable Primary Care Provider Unavailabl e Tao BOBBY - David VILLAGRAN Primary Care Provi talib Tao BOBBY - David VILLAGRAN Primary Care Provi talib David Thomson Unavailable Unavailable Unavailable DANY RED Attending Unavailable David Thomson Primary Care Provider Tao BOBBY - David VILLAGRAN Primary Care Provi talib David Thomson Primary Care Provider HAL PRADO Attending Unavailab DAVID Bustamante Primary Care Unavailable AMY MACARIO Attending Unavailable DANY RED Referring Unavailable DAVID THOMSON Primary Care Unavailable DAVID THOMSON Primary Care Unavailable Tao BOBBY - David VILLAGRAN Primary Care Provi talib DAVID THOMSON Primary Care Unavailable Generic Provider , No Assigned Pcp Primary Car e Provider Unavailable ALLEN LINDA Referring Unavailable DAVID THOMSON Primary Care Unavailable DAVID THOMSON Primary Care Unavailable ANAHY CORREA [id number] Attending Unavailable DAVID THOMSON Primary Care Unavailable VANDANA JAUREGUI Attending Unavailable ALLEN LNIDA Referring Unavailable DAVID THOMSON Primary Care Unavailable KIMBERLY, WILMAR M Attending Unavailabl e GENERIC PROVIDER, NO ASSIGNED PCP Primary Care Unavailable Kan Post MD Attending Provider Kan Post Attending Unavailable Kan Post Admitting Unavailable SELF, SELF Referring Unavailable SELF, SELF Primary Care Unavailable ELY, P. ARIANNE Attending Unavailable SELF, SELF Referring Unavailable ELY, P. [...] Attending Unavailable ELY, P. ARIANNE Referring Unavailable SELF, SELF Referring Unavailable SELF, SELF Primary Care Unavailable ELY, P. ARIANNE Attending Unavailable Allergies Allergy Classification Reported Allergen(s) Allergy Type Date of Onset Reaction(s) Facility (20 sources) traMADol; Translations: [Tramadol] Drug Allergy 1 Unknown, Rash [place] Work Phone: (5 sources) Amoxapine And Related Propensity to adverse reactions to drug 1 [place] (20 sources) Amoxicillin; Translations: [Amoxicillin TABS] Drug Allergy 2 Rash, Hives [facility] [employer] (11 sources) hydrOXYzine; Translations: [Hydroxyzines] Drug Allergy 2 Itching, Unknown [facility] (2 sources) hydrOXYzine; Translations: [HYDROXYZINE] Drug Allergy 2 [facility] Other [place] [facility] (1 source) Amoxicillin Drug Allergy 5 [facility] (1 source) traMADol Drug Allergy 5 [facility] Rep[facility] Medications Current Medications Medication Drug Class(es) Dates Sig (Normalized) Sig (Original) [id number] 200 actuat albuterol 0.09 mg/actuat metered dose inhaler (5 sources) beta2-Adrenergic Agonist Start: 01-10-2023 take 2 puff(s) by inhalation every six hours as needed for wheezing albuterol sulfate HFA (PROVENTIL;VENTOLI N;PROAIR) 108 (90 Base) MCG/ACT inhaler Indications: Chronic obstructive pulmonary disease with acute exacerbation (HCC) Inhale 2 puffs into the lungs every 6 hours as needed for Wheezing 1 each 11/14/2022 Active aspirin 81 mg delayed release oral tablet (5 sources) Platelet Aggregation Inhibitor, Nonsteroidal Anti-inflammatory Drug Start: 03-04-2025 take 1 tablet by mouth once daily Aspirin 81 mg tablet,delayed release (DR/EC) Active 81 MG PO Daily March 04, 2025 12:00am Start: 08-10-2022 take 1 tablet by herbert th once daily aspirin, enteric coated (ECOTRIN LOW STRENGTH) 81 mg EC tablet Indications: Sprain of anterior talofibular ligament of left ankle, initial encounter , Sprain of posterior talofibular ligament of left ankle, initial encounter , Sprain of deltoid ligament of left ankle, initial encounter , Closed nondisplaced avulsion fracture of left talus, initial encounter Take 1 tablet by mouth once daily. 30 tablet 1 08/10/2022 Active Comment on above: Take 1 tablet by herbert th once daily. bacitracin 0.5 unt/mg / polymyxin b 10 unt/mg topical ointment (1 source) Polymyxin-class Antibacterial Start: 09-18-20 24 End: 09-25-20 24 bacitracin-polymyxin b (POLYSPORIN) [id number] UNIT/GM ointment Apply topically 2 times daily. 28.4 g 09/18/2024 09/25/2024 Active buprenorphine 8 mg / naloxone 2 mg sublingual film (2 sources) Partial Opioid Agonist, Opioid Antagonist Start: 03-04-20 25 Buprenorphine-Naloxo ne 8-2 mg film Active 1 FILM SUBLINGUAL Daily March 04, 2025 12:00am Buprenorphine HCl-Naloxone HCl (SUBOXONE SL) (2 sources) Buprenorphine HCl-Naloxone HCl (SUBOXONE SL) Place under the tongue Active cephalexin 500 mg oral capsule (3 sources) Cephalosporin Antibacterial Start: 06-01-20 22 End: 06-08-20 22 take 1 capsule by mouth in the morning cephALEXin (KEFLEX) 500 MG capsule Take 1 capsule by mouth in the morning and 1 capsule before bedtime. Do all this for 7 days. 14 capsule 0 06/01/2022 06/08/2022 Active Start: 11-11-2021 End: 11-18-2021 take 1 capsule by mouth three times daily cephALEXin (KEFLEX) 500 MG capsule Take 1 capsule by mouth 3 times daily for 7 days 21 capsule 0 11/11/2021 11/18/2021 Active cholecalciferol 0.05 mg oral tablet (2 sources) Vitamin D Start: 03-04-2025 take 1 tablet by mouth once daily Cholecalciferol (Vitamin D3) (Vitamin D3) 50 mcg (2,000 unit) tablet Active 50 MCG PO Daily March 04, 2025 12:00am hydrOXYzine pamoate 50 mg oral capsule (4 sources) Antihistamine Start: 03-04-2025 take 1 capsule by mouth once daily Hydroxyzine Pamoate 50 mg capsule Active 50 MG PO Daily March 04, 2025 12:00am Start: 06-02-2022 End: 06-09-2022 take 2 tablets by mouth every eight hours as needed hydrOXYzine HCl (ATARAX) 25 MG tablet Indications: Staph skin infection Take 2 tablets by mouth every 8 hours as needed for Itching 42 tablet 0 06/02/2022 06/09/2022 Active lidocaine 0.05 mg/mg topical ointment (1 source) Antiarrhythmic, Amide Local Anesthetic Start: 06-07-2022 lidocaine (XYLOCAINE) 5 % ointment Apply topically as needed. 30 g 0 06/07/2022 Active methylPREDNISolone 4 mg oral tablet (4 sources) Corticosteroid Start: 12-20-2024 End: 12-26-2024 methylPREDNISolone (MEDROL, REENA,) 4 MG tablet Take by mouth. 21 tablet 12/20/2024 12/26/2024 Active Start: 06-07-2022 End: 06-07-2022 methylPREDNISolone sodium (S PAKO-MEDROL) injection 125 mg Start: 05-29-2022 methylPREDNISo lone (MEDROL DOSEPACK) 4 MG tablet Indications: Cervical radiculopathy Take by mouth. 1 kit 0 05/29/2022 Active naproxen 500 mg oral tablet (1 source) Nonsteroidal Anti-inflammatory Drug Start: 02-11-2022 take 1 tablet by mouth twice daily naproxen (NAPROSYN) 500 MG tablet Take 1 tablet by mouth 2 times daily 14 tablet 0 02/11/2022 Active omeprazole 40 mg delayed release oral capsule (2 sources) Proton Pump Inhibitor Start: 02-16-2022 take 1 capsule by mouth once daily before breakfast omeprazole (PRILOSEC) 40 MG delayed release capsule Take 1 capsule by mouth every morning (before breakfast) 90 capsule 1 02/16/2022 Active oxyCODONE hydrochloride 5 mg oral tablet (1 source) Opioid Agonist Start: 08-10-2022 End: 08-13-2022 take 1 tablet by mouth every six hours as needed for pain oxyCODONE IR (ROXICODONE) 5 mg immediate release tablet Indications: Sprain of anterior talofibular ligament of left ankle, initial encounter , Sprain of posterior talofibular ligament of left ankle, initial encounter , Sprain of deltoid ligament of left ankle, initial encounter , Closed nondisplaced avulsion fracture of left talus, initial encounter Take 1 tablet by mouth every 6 hours as needed for pain for up to 3 days. for pain. 12 tablet 0 08/10/2022 08/13/2022 Active Comment on above: Take 1 tablet by herbert every 6 hours as needed for pain for up to 3 days. for pain. polyethylene glycol 3350 [id number] mg / potassium chloride 1480 mg / sodium bicarbonate 5720 mg / sodium chloride 99430 mg powder for oral solution (1 source) Osmotic Laxative Start: 02-16-2022 take 420 g by mouth once polyethylene glycol-electroly terell (NULYTELY) 420 g solution Take 4,000 mLs by mouth once for 1 dose 0 02/16/2022 Active sertraline 50 mg oral tablet (4 sources) Serotonin Reuptake Inhibitor Start: 03-04-2025 take 1 tablet by mouth once daily Sertraline 50 mg tablet Active 50 MG PO Daily March 04, 2025 12:00am Sertraline HCl ( ZOLOFT PO) Take by mouth Active 1000 ml sodium chloride 9 mg /ml injection (6 sources) Start: 06-16-2022 0.9 % sodium c hloride infusion Start: 06-16-2022 End: 06-16-2022 sodium chloride 0.9 % infusi on Start: 06-07-2022 End: 06-07-2022 0.9 % sodium chloride bolus Start: 03-31-2022 0.9 % sodium c hloride infusion Start: 03-31-2022 End: 03-31-2022 sodium chloride 0.9 % infusi on Start: 02-11-2022 sodium chlorid e (OCEAN) 0.65 % nasal spray 1 spray by Nasal route in the morning and at bedtime 1 each 0 02/11/2022 Active sulfamethoxazole 800 mg / trimethoprim 160 mg oral tablet (2 sources) Dihydrofolate Reductase Inhibitor Antibacterial, Sulfonamide Antimicrobial Start: 06-01-2022 End: 06-08-2022 take 1 tablet by mouth once in the morning sulfamethoxazole-trimethoprim (BACTRIM DS;SEPTRA DS) 800-160 MG per tablet Take 1 tablet by mouth in the morning and 1 tablet before bedtime. Do all this for 7 days. 14 tablet 0 06/01/2022 06/08/2022 Active Completed/Discontinued Medications Medication Drug Class(es) Dates Sig (Normalized) Sig (Original) 100 ml acetaminophen 10 mg/ml injection (17 sources) Start: 07-22-2024 End: 07-22-2024 1,000 mg, intravenous, at 400 mL/hr, Administer over 15 Minutes, Once, On Sun07/22/24 at 0355, For 1 dose Start: 09-07-2022 acetaminophen (TYLENOL) tablet 650 mg Start: 08-10-2022 take 2 tablets by [facility] every six hours as needed for pain acetaminophen (TYLENOL EXTRA STRENGTH) 500 mg tablet Indications: Sprain of anterior talofibular ligament of left ankle, initial encounter , Sprain of posterior talofibular ligament of left ankle, initial encounter , Sprain of deltoid ligament of left ankle, initial encounter , Closed nondisplaced avulsion fracture of left talus, initial encounter Take 2 tablets by mouth every 6 hours as needed for pain. 90 tablet 0 08/10/2022 Active Start: 06-01-2022 take 1-2 tablets by mouth every six hours as needed for pain acetaminophen (TYLENOL) 500 MG tablet Take 1-2 tablets by mouth every 6 hours as needed for Pain 50 tablet 06/01/2022 Active Start: 11-11-2021 End: 11-11-2021 acetaminophen (TYLENOL) tabl et 1,000 mg End: 06-01-2022 take 2 tablets by mouth every six hours as needed for pain acetaminophen (TYLENOL) 500 MG tablet Take 1,000 mg by mouth every 6 hours as needed for Pain 0 06/01/2022 Discontinued (DOSE ADJUSTMENT) Comment on above: Take 2 tablets by [facility] every 6 hours as needed for pain. aluminum hydroxide 40 mg/ml / magnesium hydroxide 40 mg/ml / simethicone 4 mg/ml oral suspension (1 source) Start: End: take 20 mL by mouth once 20 mL, oral, Once, On Sun07/22/24 at 0355, For 1 dose azithromycin 250 mg oral tablet (4 sources) Macrolide Antimicrobial Start: End: azithromycin (ZITHROMAX) 250 MG tablet Indications: Chronic obstructive pulmonary disease with acute exacerbation (HCC) Take 2 tabs (500 mg) on Day 1, and take 1 tab (250 mg) on days 2 through 5. 1 packet 11/14/2022 12/20/2024 Discontinued (LIST CLEANUP) calcium chloride 0.0014 meq/ml / potassium chloride 0.004 meq/ml / sodium chloride 0.103 meq/ml / sodium lactate 0.028 meq/ml injectable solution (1 source) Start: End: 1,000 mL, intravenous, at 999 mL/hr, Administer over 1 Hours, Once, On Sun07/22/24 at 0100, For 1 dose calcium citrate 1500 mg / cholecalciferol 250 unt oral tablet (3 sources) Vitamin D Start: take 1 tablet by mouth twice daily at mealtime Calcium Citrate-Vitamin D3 (CITRACAL+D) 315 mg-6.25 mcg (250 unit) tab Indications: Closed nondisplaced avulsion fracture of left talus, initial encounter Take 1 tablet by mouth twice daily with meals. 60 tablet 1 08/10/2022 Active Comment on above: Take 1 tablet by [facility] twice daily with meals. ceFAZolin (ANCEF) 2000 mg in dextrose 5 % 100 mL IVPB (1 source) Start: End: ceFAZolin (ANCEF) 2000 mg in dextrose 5 % 100 mL IVPB cetirizine hydrochloride 10 mg chewable tablet (7 sources) Histamine-1 Receptor Antagonist Start: take 1 tablet by mouth once daily ZyrTEC 10 MG Oral Tablet Chewable CHEW AND SWALLOW 1 TABLET DAILY DIRECTED Quantity: 0 Refills: 0 Ordered: 13-Jun-2022 DO Start : 13-Jun-2022 Active Start: 06-07-2022 End: 12-20-2024 take 1 tablet by mouth in the morning cetirizine (ZYRTEC) 10 MG tablet Take 1 tablet by mouth in the morning. 30 tablet 06/07/2022 12/20/2024 Discontinued (LIST CLEANUP) cyclobenzaprine hydrochloride 10 mg oral tablet (4 sources) Muscle Relaxant Start: 12-20-2024 End: 12-20-2024 take 1 dose by mouth once 10 mg, Oral, ONCE, 1 dose, On 12/20/24 at 1645 Start: 12-20-2024 End: 12-30-2024 take 1 tablet by mouth three times daily as needed for muscle spasms cyclobenzaprine (FLEXERIL) 10 MG tablet Take 1 tablet by mouth 3 times daily as needed for Muscle spasms 21 tablet 12/20/2024 12/30/2024 Active Start: 05-01-2023 take 2.5-5 mg by herbert every twelve hours as needed cyclobenzaprine (FLEXERIL) 5 mg tablet Take 0.5-1 tablets by mouth twice daily as needed for muscle spasm. 60 tablet 4 05/01/2023 Active Comment on above: Take 0.5-1 tablets b y mouth twice daily as needed for muscle spasm. ergocalciferol 1.25 mg oral capsule (3 sources) Provitamin D2 Compound Start: 08-10-20 End: 11-17-19 23 take 1 capsule by mouth every week ergocalciferol 50,000 unit capsule (VITAMIN D2, DRISDOL) Indications: low serum vitamin D Take 1 capsule by mouth one time a week for 15 doses. 15 capsule 0 08/10/2022 Active Comment on above: Take 1 capsule by mo [facility] one time a week for 15 doses. famotidine 20 mg oral tablet (2 sources) Histamine-2 Receptor Antagonist Start: 07-22-20 End: 07-22-20 24 take 20 mg by mouth once 20 mg, oral, Once, On Sun07/22/24 at 0355, For 1 dose Start: 06-07-2022 End: 06-07-2022 famotidine (PEPCID) injectio n 20 mg hydrocortisone 25 mg/ml topical cream (1 source) Corticosteroid Start: 06-13-2022 Hydrocortisone 2.5 % External Cream APPLY SPARINGLY TO AFFECTED AREA(S) 2 TO 3 TIMES DAILY. Quantity: 1 Refills: 2 Ordered: 13-Jun-2022 Giorgio ANSHU Mateusz Start : 13-Jun-2022 Active ibuprofen 400 mg oral tablet (8 sources) Nonsteroidal Anti-inflammatory Drug Start: 03-30-2023 take 1 tablet by mouth every six hours as needed ibuprofen (MOTRIN) 400 mg tablet Take 1 tablet by mouth every 6 hours as needed for pain. 30 tablet 0 03/30/2023 Active Start: 08-10-2022 take 1 tablet by herbert th every six hours as needed for pain ibuprofen (MOTRIN) 600 mg tablet Indications: Sprain of anterior talofibular ligament of left ankle, initial encounter , Sprain of posterior talofibular ligament of left ankle, initial encounter , Sprain of deltoid ligament of left ankle, initial encounter , Closed nondisplaced avulsion fracture of left talus, initial encounter Take 1 tablet by mouth every 6 hours as needed (for pain.). 90 tablet 0 08/10/2022 Active Start: 06-01-2022 End: 09-18-2024 take 1 tablet by mouth every eight hours as needed for pain ibuprofen (ADVIL;MOTRIN) 800 MG tablet Take 1 tablet by mouth every 8 hours as needed for Pain or Fever 120 tablet 5 06/01/2022 09/18/2024 Discontinued (LIST CLEANUP) Start: 05-12-2021 take 1 tablet by herbert th every eight hours as needed for pain ibuprofen (ADVIL;MOTRIN) 800 MG tablet Indications: Back pain of lumbar region with sciatica Take 1 tablet by mouth every 8 hours as needed for Pain 90 tablet 0 05/12/2021 Active Comment on above: Take 1 tablet by herbert th every 6 hours as needed (for pain.). Take 1 tablet by herbert th every 6 hours as needed for pain. iohexol (OMNIPaque) 350 mg iodine/mL solution 82 mL (1 source) Start: 07-22-2024 End: 07-22-2024 82 mL, intravenous, Once in imaging, Starting on Sun07/22/24 at 0140, For 1 dose iopamidol (ISOVUE-300) 61 % injection 100 mL (1 source) Start: 02-13-2022 End: 02-13-2022 iopamidol (ISOVUE-300) 61 % injection 100 mL ketorolac tromethamine 10 mg oral tablet (6 sources) Nonsteroidal Anti-inflammatory Drug, Cyclooxygenase Inhibitor Start: 09-18-2024 30 mg, IntraMUSCular, ONCE, 1 dose, On Ana María 09/18/24 at 1326, Do not administer for more than 5 days. Start: 09-18-2024 End: 12-20-2024 take 1 tablet by mouth every six hours as needed for pain ketorolac (TORADOL) 10 MG tablet Take 1 tablet by mouth every 6 hours as needed for Pain 20 tablet 09/18/2024 12/20/2024 Discontinued (LIST CLEANUP) Start: 11-11-2021 End: 11-11-2021 ketorolac (TORADOL) injectio n 30 mg 1 ml morphine sulfate 4 mg/ml prefilled syringe (1 source) Opioid Agonist Start: 07-22-2024 End: 07-22-2024 4 mg, intravenous, Once, On Sun07/22/24 at 0100, For 1 dose nortriptyline 10 mg oral capsule (2 sources) Tricyclic Antidepressant Start: 05-01-2023 take 1 capsule by mouth once daily at bedtime nortriptyline (PAMELOR) 10 mg capsule Take 1 capsule by mouth daily at bedtime. 30 capsule 4 05/01/2023 Active Comment on above: Take 1 capsule by [facility] daily at bedtime. ondansetron 4 mg disintegrating oral tablet (13 sources) Serotonin-3 Receptor Antagonist Start: 12-20-2024 End: 12-20-2024 take 1 dose by mouth once 4 mg, Oral, ONCE, 1 dose, On 12/20/24 at 1645 Start: 07-22-2024 End: 07-22-2024 4 mg, intravenous, Once, On Sun07/22/24 at 0350, For 1 dose, When administering via IV Push, administer over 3-5 minutes. Start: 06-07-2022 End: 06-07-2022 ondansetron (ZOFRAN) injecti on 4 mg Start: 06-07-2022 End: 12-20-2024 take 1 tablet by mouth every eight hours as needed for nausea ondansetron (ZOFRAN ODT) 4 MG disintegrating tablet Take 1 tablet by mouth every 8 hours as needed for Nausea 10 tablet 06/07/2022 12/20/2024 Discontinued (LIST CLEANUP) Start: 01-09-2022 take 1 tablet by herbert three times daily as needed for nausea ondansetron (ZOFRAN-ODT) 4 MG disintegrating tablet Indications: Nephrolithiasis Take 1 tablet by mouth 3 times daily as needed for Nausea or Vomiting 21 tablet 0 01/09/2022 Active predniSONE (3 sources) Start: 12-20-2024 End: 12-20-2024 take 1 dose by mouth once 50 mg, Oral, ONCE, 1 dose, On 12/20/24 at 1645 Start: 06-13-2022 take 9 tablets by mo [facility] once at mealtime predniSONE 10 MG Oral Tablet 4x3 days, 3x3 days, 2x3 days, 1x3 days Quantity: 30 Refills: 0 Ordered: 13-Jun-2022 Giorgio BRASHER Mateusz Start : 13-Jun-2022 Active Take medication with food. Start: 06-07-2022 End: 06-12-2022 take 6 tablets by mouth in the morning predniSONE (DELTASONE) 10 MG tablet Take 6 tablets by mouth in the morning for 5 doses. 30 tablet 0 06/07/2022 06/12/2022 Active 1 ml triamcinolone acetonide 40 mg/ml prefilled syringe (1 source) Corticosteroid Start: 06-13-2022 Triamcinolone Acetonide 40 MG/ML Injection Suspension INJECT 1.5 ML Intramuscular Quantity: 0 Refills: 0 Ordered: 13-Jun-2022 Giorgio BOBBY-TYSHAWN Mateusz Start : 13-Jun-2022 Complete Problems Active Problems Problem Classification Problem Date Documented Da te Episodic/Chronic Allergic reactions (2 sources) Urticaria; Translations: [Urticaria, unspecified] Episodic Anxiety disorders (4 sources) Anxiety; Translations: [Anxiety disorder, unspecified] Onset: 11-14-2024 03-04-2025 Chronic Calculus of urinary tract (1 source) Kidney stone; Translations: [Calculus of kidney] Episodic Chronic obstructive pulmonary disease and bronchiectasis (13 sources) Chronic obstructive lung disease; Translations: [Chronic obstructive pulmonary disease, unspecified] Onset: 11-22-2021 11-22-2021 Chronic Disorders of lipid metabolism (13 sources) Hyperlipidemia; Translations: [Hyperlipidemia, unspecified] Onset: 11-22-2021 11-22-2021 Chronic Essential hypertension (13 sources) Hypertensive disorder; Translations: [Essential (primary) hypertension] Onset: 11-22-2021 11-22-2021 Chronic Fracture of lower limb (1 source) Closed fracture of talus; Translations: [Nondisplaced avulsion fracture (chip fracture) of left talus, initial encounter for closed fracture] Episodic Gastritis and duodenitis (11 sources) Gastritis; Translations: [Gastritis, unspecified, without bleeding] Episodic Gastrointestinal hemorrhage (11 sources) Melena; Translations: [Melena] Episodic Genitourinary symptoms and ill-defined conditions (2 sources) Decreased urine output; Translations: [Anuria and oliguria] 03-04-2025 Episodic Headache; including migraine (2 sources) Headache; including migraine; Translations: [Headache, unspecified] Onset: 07-21-2024 Mood disorders (17 sources) Bipolar disorder; Translations: [Bipolar disorder, unspecified] Onset: 11-22-2021 11-22-2021 Chronic Nonspecific chest pain (7 sources) Chest pain; Translations: [Chest pain, unspecified] Onset: 07-21-2024 07-22-2024 Episodic Nutritional deficiencies (2 sources) Vitamin D deficiency; Translations: [Vitamin D deficiency, unspecified] 03-04-2025 Chronic Open wounds of extremities (1 source) Laceration without foreign body of right upper arm, initial encounter; Translations: [Laceration of right upper arm, initial encounter] Onset: 08-22-2023 Episodic Other connective tissue disease (1 source) Weakness of left arm; Translations: [Other symptoms and signs involving the musculoskeletal system] Episodic Other connective tissue disease (1 source) Pain in right arm; Translations: [Right arm pain] Onset: 08-22-2023 Episodic Other connective tissue disease (1 source) Swelling of lower limb; Translations: [Other specified soft tissue disorders] 03-04-2025 Episodic Other connective tissue disease (1 source) Other specified soft tissue disorders; Translations: [Swelling of limb] 03-04-2025 Episodic Other eye disorders (2 sources) Other specified disorders of eye and adnexa; Translations: [Other specified disorders of eye and adnexa] Onset: 01-26-2025 Episodic Other inflammatory condition of skin (1 source) Itching of skin; Translations: [Unspecified pruritic disorder] Episodic Other inflammatory condition of skin (1 source) Pruritic rash; Translations: [Other specified pruritic conditions] Episodic Other injuries and conditions due to external causes (1 source) Unspecified injury of left ankle, initial encounter; Translations: [Injury of left ankle, initial encounter] Onset: 08-03-2022 Episodic Other injuries and conditions due to external causes (1 source) Foreign body in vagina; Translations: [Foreign body in vulva and vagina, initial encounter] Episodic Other injuries and conditions due to external causes (1 source) Unspecified injury of right shoulder and upper arm, initial encounter; Translations: [Arm injury, right, initial encounter] Onset: 08-22-2023 Episodic Other non-traumatic joint disorders (2 sources) Pain in left knee; Translations: [Pain in joint, lower leg] Onset: 09-18-2024 09-18-2024 Episodic Other screening for suspected conditions (not mental disorders or infectious disease) (1 source) Imaging of genitourinary system abnormal; Translations: [Abnormal radiologic findings on diagnostic imaging of unspecified kidney] Episodic Other skin disorders (1 source) Eruption; Translations: [Rash and other nonspecific skin eruption] Episodic Residual codes; unclassified (1 source) Tobacco user; Translations: [Tobacco use disorder] Episodic Residual codes; unclassified (1 source) Amnesia; Translations: [Other amnesia] Episodic Skin and subcutaneous tissue infections (1 source) Cellulitis of finger of right hand; Translations: [Cellulitis of right finger] Episodic Spondylosis; intervertebral disc disorders; other back problems (18 sources) Post-surgery back pain; Translations: [Dorsalgia, unspecified] Onset: 05-12-2021 05-12-2021 Episodic Substance-related disorders (6 sources) Opioid dependence, uncomplicated; Translations: [Drug addict ] Onset: 11-03-2024 Chronic Superficial injury; contusion (2 sources) Abrasion of left knee; Translations: [Abrasion, left knee, initial encounter] Onset: 09-18-2024 09-18-2024 Episodic Unclassified (1 source) Wound Check Onset: 11-11-2021 Past or Other Problems Problem Classification Problem Date Documented Da te Episodic/Chronic Fever of unknown origin (2 sources) Fever, unspecified; Translations: [Fever, unspecified] Onset: 10-17-2024 Episodic Headache; including migraine (1 source) Acute headache; Translations: [Acute nonintractable headache, unspecified headache type] 07-22-2024 Episodic Intracranial injury (2 sources) Concussion with loss of consciousness; Translations: [Concussion with loss of consciousness of unspecified duration, subsequent encounter] Onset: 05-01-2023 Episodic Other gastrointestinal disorders (9 sources) Constipation; Translations: [Constipation, unspecified] Onset: 06-16-2022 Episodic Residual codes; unclassified (2 sources) Pain, unspecified; Translations: [Pain, unspecified] Onset: 10-17-2024 Episodic Sprains and strains (10 sources) Sprain of other ligament of left ankle, initial encounter; Translations: [Sprain of talofibular ligament of left ankle] Onset: 08-03-2022 Episodic Substance-related disorders (2 sources) Other stimulant use, unspecified, uncomplicated; Translations: [Other stimulant use, unspecified, uncomplicated] Onset: 11-14-2024 Episodic Results Test Name Value Interpretation Reference Range Facility Urine Cultureon 03-04-2025 Bacteria identified Cx Nom (U) >100,000 colonies/ml mixed bacterial skin contaminants 2 Days PERFORMED BY: [place] [address] PATHOLOGIST CERTIFIED PARALEGAL BETY FISCHER M.D. Normal [facility] Comment on above: Performed By: #### C UU #### [address] Basic Metabolic Panelon 03- Orlando Mckeon Rate - PINF [facility] Comment on above: These results are not intended for use [...] following therapy that affects renal tubular secretion. Interpretation and review of laboratory results Abnormal [facility] Urea nitrogen/Creatinin e [Mass ratio] 14 mg/mg 9 - 20 [facility] Basic Metabolic Profon 01-13 Anion gap [Moles/Vol] 12 mmol/L Normal -16 [facility] Comment on above: Performed By: #### B DEVYN NEAL CDP #### [facility] [address] [place] [address] [place] [address] [facility]: Tray Stapleton MD BUN/CRE Ratio 14 Normal - [facility] Comment on above: Performed By: #### B DEVYN NEAL, CDP #### [address] [place] [address] [facility]: Tray Stapleton MD Calcium [Mass/Vol] 8.6 mg/dL Normal 8.6-10.4 [facility] Comment on above: Performed By: #### B DEVYN NEAL CDP #### [address] [place] [address] [facility]: Tray Stapleton MD Chloride [Moles/Vol] 105 mmol/L Normal 98-107 [facility] Comment on above: Performed By: #### B DEVYN NEAL, CDP #### [address] [place] [address] [facility] [employer] [facility]: Tray Stapleton MD CO2 [Moles/Vol] 22 mmol/L Normal 20-31 [facility] Comment on above: Performed By: #### B DEVYN NEAL, CDP #### [address] [place] [address] [facility] [employer]: Tray Stapleton MD Creatinine [Mass/Vol] 0.8 mg/dL Normal 0.50-0.90 [facility] Comment on above: Performed By: #### B DEVYN NEAL, CDP #### [address] [place] [address] [facility] [employer]: Tray Stapleton MD GFR/1.73 sq M.predicted among non-blacks MDRD (S/P/Bld) [Vol rate/Area] mL/min/{1.73_m2} Normal >60 [place] Comment on above: Result Comment: These results are not intended [...] following therapy that affects renal tubular secretion. Performed By: #### B DEVYN NEAL, CDP #### [address] [place] [address] [facility]: Tray Stapleton MD Glucose [Mass/Vol] 118 mg/dL High 74-99 [facility] Comment on above: Performed By: #### B DEVYN NEAL, CDP #### [address] [place] [address] [facility]: Trya Stapleton MD Potassium [Moles/Vol] 4.2 mmol/L Normal 3.7-5.3 [facility] Comment on above: Performed By: #### B DEVYN NEAL, CDP #### [address] [place] [address] [facility] [facility]: Tray Stapleton MD Sodium [Moles/Vol] 139 mmol/L Normal 136-145 [facility] Comment on above: Performed By: #### B DEVYN NEAL, CDP #### [address] [place] [address] [facility] [facility]: Tray Stapleton MD Urea nitrogen [Mass/Vol] 11 mg/dL Normal 6-20 [facility] Comment on above: Performed By: #### B DEVYN NEAL, JOHANNA #### [facility] [address] [place] [address] [facility] [facility]: Tray Stapleton MD CBC with Auto Differentialon 01-13-2025 Basophils (Bld) [#/Vol] 0.03 10*3/uL [facility] Basophils/100 WBC (Bld) 0 % 0 - 2 % [facility] Eosinophils (Bld) [#/Vol] 0.12 10*3/uL [facility] Eosinophils/100 WBC (Bld) 2 % 1 - 4 % [facility] Erythrocyte distribution width (RBC) [Ratio] 13.8 % 11.8 - 14.4 % [facility] Hematocrit (Bld) [Volume fraction] 38 % 36.3 - 47.1 % [facility] Hemoglobin (Bld) [Mass/Vol] 12.9 g/dL 11.9 - 15.1 g/dL [facility] Immature granulocytes (Bld) [#/Vol] [facility] Immature granulocytes/100 WBC (Bld) 0 % 0 [facility] Lymphocytes/100 WBC (Bld) 35 % 24 - 43 % [facility] Lymphocytes/100 WBC (Bld) 2.57 % [facility] MCH (RBC) [Entitic mass] 31.2 pg 25.2 - 33.5 pg [facility] MCHC (RBC) [Mass/Vol] 33.9 g/dL 28.4 - 34.8 g/dL [facility] MCV (RBC) [Entitic vol] 91.8 fL 82.6 - 102.[address] [facility] Monocytes/100 WBC (Bld) 9 % 3 - 12 % [facility] Monocytes/100 WBC (Bld) 0.67 % [facility] Neutrophils/100 WBC (Bld) 54 % 36 - 65 % [facility] Nucleated RBC/100 WBC (Bld) [Ratio] 0 % 0.0 per 100 WBC [facility] Platelet mean volume (Bld) [Entitic vol] 8.5 fL 8.1 - 13.5 fL [facility] Platelets (Bld) [#/Vol] 440 10*3/uL [facility] RBC (Bld) [#/Vol] 4.14 10*6/uL 3.95 - 5.1 1 m/uL [facility] Segmented neutrophils/100 WBC (Bld) 3.99 % [facility] WBC other (Bld) [#/Vol] 7.4 [facility] CBC with Diffon 01-13-2025 Abs. Basophil 0.03 k/uL Normal 0.00-0.20 [facility] Comment on above: Performed By: #### B DEVYN NEAL CDP #### [facility] [address] [place] [address] Dr[place] [id number] [facility]: Tray Stapleton MD Abs.Imm.Granulocyt e <0.03 Normal 0.00-0.30 [place] Comment on above: Performed By: #### B DEVYN NEAL CDP #### [address] [place], [facility]83 [facility]: Tray Stapleton MD Abs.Neutrophil (Seg) 3.99 k/uL Normal 1.50-8.10 [place] Comment on above: Performed By: #### B DEVYN NEAL CDP #### [facility] [address] [place] [address] Dr. [place], [facility]83 [facility]: Tray Stapleton MD Basophils/100 WBC (Bld) 0 % Normal 0-2 [place] Comment on above: Performed By: #### B DEVYN NEAL, CDP #### [facility] [address] [place] [address] Dr. [place], [facility]83 [facility]: Tray Stapleton MD Eosinophils (Bld) [#/Vol] 0.12 10*3/uL Normal 0.00-0.44 [place] Comment on above: Performed By: #### B DEVYN NEAL, CDP #### [address] [place], [place] [id number] [facility] [facility]: Tray Stapleton MD Eosinophils/100 WBC (Bld) 2 % Normal 1-4 [place] Comment on above: Performed By: #### B DEVYN NEAL, CDP #### [address] [place], [facility]83 [facility]: Tray Stapleton MD Erythrocyte distribution width (RBC) [Ratio] 13.8 % Normal 11.8-14.4 [place] Comment on above: Performed By: #### B DEVYN NEAL, CDP #### [address] [place] [id number] [facility]: Tray Stapleton MD Hematocrit (Bld) [Volume fraction] 38.0 % Normal 36.3-47.1 [place] Comment on above: Performed By: #### B DEVYN NEAL, CDP #### [address] [place], [facility]83 [facility]: Tray Stapleton MD Hemoglobin (Bld) [Mass/Vol] 12.9 g/dL Normal 11.9-15.1 [place] Comment on above: Performed By: #### B DEVYN NEAL, CDP #### [address] [place], [facility]83 [facility]: Tray Stapleton MD Immature granulocytes/100 WBC (Bld) 0 % Normal 0 [place] Comment on above: Performed By: #### B DEVYN NEAL, CDP #### [address] [place], [facility]83 [facility]: Tray Stapleton MD Lymphocytes (Bld) [#/Vol] 2.57 10*3/uL Normal 1.10-3.70 [place] Comment on above: Performed By: #### B DEVYN NEAL, CDP #### [facility] [address] [place], [place] [id number] [facility] [facility]: Tray Stapleton MD Lymphocytes/100 WBC (Bld) 35 % Normal 24-43 [place] Comment on above: Performed By: #### B DEVYN NEAL, CDP #### [facility] [address] [place], [facility]83 [facility] [employer] [facility]: Tray Stapleton MD MCH (RBC) [Entitic mass] 31.2 pg Normal 25.2-33.5 [place] Comment on above: Performed By: #### B DEVYN NEAL, CDP #### [address] [place], [facility]83 [facility]: Tray Stapleton MD MCHC (RBC) [Mass/Vol] 33.9 g/dL Normal 28.4-34.8 [place] Comment on above: Performed By: #### B DEVYN NEAL, CDP #### [address] [place], [facility]83 [facility]: Tray Stapleton MD MCV (RBC) [Entitic vol] 91.8 fL Normal 82.6-102.9 [place] Comment on above: Performed By: #### B DEVYN NEAL, CDP #### [address] [place], [facility]83 [facility]: Tray Stapleton MD Monocytes (Bld) [#/Vol] 0.67 10*3/uL Normal 0.10-1.20 [place] Comment on above: Performed By: #### B DEVYN NEAL, CDP #### [address] [place] [address] [employer] [facility]: Tray Stapleton MD Monocytes/100 WBC (Bld) 9 % Normal 3-12 [place] Comment on above: Performed By: #### B DEVYN NEAL, CDP #### [facility] [address] [place], [place] [id number] [employer] [facility]: Tray Stapleton MD Neutrophil (Seg) 54 % Normal 36-[address] [facility] Comment on above: Performed By: #### B DEVYN NEAL, CDP #### [facility] [address] [place], [place] [id number] [employer] [facility]: Tray Stapleton MD NRBC Automated 0.0 per 100 WBC Normal 0.0 [place] Comment on above: Performed By: #### B DEVYN NEAL, CDP #### [facility] [address] [place], [place] [id number] [employer] [facility]: Tray Stapleton MD Platelet mean volume (Bld) [Entitic vol] 8.5 fL Normal 8.1-13.5 [place] Comment on above: Performed By: #### B DEVYN NEAL, CDP #### [address] [place], [place] [id number] [facility] [facility]: Tray Stapleton MD Platelets (Bld) [#/Vol] 440 10*3/uL Normal 138-453 [place] Comment on above: Performed By: #### B DEVYN NEAL, CDP #### [address] [place], [place] [id number] [facility] [facility]: Tray Stapleton MD RBC (Bld) [#/Vol] 4.14 10*6/uL Normal 3.95-5.11 [place] Comment on above: Performed By: #### B DEVYN NEAL, CDP #### [facility] [address] [place], [place] [id number] [facility] [facility]: Tray Stapleton MD WBC (Bld) [#/Vol] 7.4 10*3/uL Normal 3.5-11.3 [place] Comment on above: Performed By: #### B DEVYN NEAL, CDP #### [address] [place], [place] [id number] [employer] [facility]: Tray Stapleton MD No Panel Informationon 01-13 [facility] Troponinon 01-13-2025 Troponin, High Sens <6 Normal 0-14 [place] Comment on above: Result Comment: High Sensitivity Troponin values cannot be compared with other Troponin methodologies. Performed By: #### B MP, TROPI, CDP #### [facility] [address] [place], [place] [id number] [facility] [facility]: Tray Stapleton MD Troponin I.cardiac High sensitivity method [Mass/Vol] ng/L 0 - 14 ng/L [facility] Comment on above: High Sensitivity Tro ponin values cannot be compared with other Troponin methodologies. XR CHEST PORTABLEon 01-14-20 XR CHEST PORTABLE EXAMINATION: ONE XRAY VIEW OF THE CHEST [...] by: Raheem Bray MD 01/13/25 Final result Normal [place] CBC with Auto Differentialon 12-20-2024 Basophils (Bld) [#/Vol] [facility] Immature granulocytes (Bld) [#/Vol] [facility] Lymphocytes/100 WBC (Bld) 2.17 % [facility] Monocytes/100 WBC (Bld) 0.55 % [facility] Neutrophils/100 WBC (Bld) 65 % 36 - 65 % [facility] Nucleated RBC/100 WBC (Bld) [Ratio] 0.0 % 0.0 per 100 WBC [facility] Segmented neutrophils/100 WBC (Bld) 5.18 % [facility] WBC other (Bld) [#/Vol] 8.0 [facility] CBC with Diffon 12-20-2024 Basophils/100 WBC (Bld) 0 % Normal 0-2 [facility] Comment on above: Performed By: #### C DP, CP, TROPI #### [address] [place] [id number] [facility] [employer] [facility]: Tray Stapleton MD Eosinophils (Bld) [#/Vol] 0.05 10*3/uL Normal 0.00-0.44 [facility] Comment on above: Performed By: #### C DP, CP, TROPI #### [address] [place] [id number] [facility] [employer] [facility]: Tray Stapleton MD Eosinophils/100 WBC (Bld) 1 % Normal 1-4 [facility] Comment on above: Performed By: #### C DP, CP, TROPI #### [address] [place] [id number] [facility] [employer] [facility]: Tray Stapleton MD Erythrocyte distribution width (RBC) [Ratio] 13.6 % Normal 11.8-14.4 [facility] Comment on above: Performed By: #### C DP, CP, TROPI #### [address] [place], [place] [id number] [facility] [facility]: Tray Stapleton MD Hematocrit (Bld) [Volume fraction] 41.7 % Normal 36.3-47.1 [facility] Comment on above: Performed By: #### C DP, CP, TROPI #### [address] [place] [id number] [facility]: Tray Stapleton MD Hemoglobin (Bld) [Mass/Vol] 14.0 g/dL Normal 11.9-15.1 [facility] Comment on above: Performed By: #### C DP, CP, TROPI #### [address] [place] [address] [employer] [facility]: Tray Stapleton MD Immature granulocytes/100 WBC (Bld) 0 % Normal 0 [facility] Comment on above: Performed By: #### C DP, CP, TROPI #### [address] [place] [address] [employer] [facility]: Tray Stapleton MD Lymphocytes/100 WBC (Bld) 27 % Normal 24-43 [facility] Comment on above: Performed By: #### C DP, CP, TROPI #### [address] [place] [id number] [facility] [facility]: Tray Stapleton MD MCH (RBC) [Entitic mass] 30.9 pg Normal 25.2-33.5 [facility] Comment on above: Performed By: #### C DP, CP, TROPI #### [address] [place] [id number] [facility] [employer] [facility]: Tray Stapleton MD MCHC (RBC) [Mass/Vol] 33.6 g/dL Normal 28.4-34.8 [facility] Comment on above: Performed By: #### C DP, CP, TROPI #### [address] [place] [address] [employer] [facility]: Tray Stapleton MD MCV (RBC) [Entitic vol] 92.1 fL Normal 82.6-102.9 [facility] Comment on above: Performed By: #### C DP, CP, TROPI #### [address] [place] [id number] [facility] [employer] [facility]: Tray Stapleton MD Monocytes/100 WBC (Bld) 7 % Normal 3-12 [facility] Comment on above: Performed By: #### C DP, CP, TROPI #### [address] [place] [address] [employer]: Tray Stapleton MD Platelet mean volume (Bld) [Entitic vol] 8.8 fL Normal 8.1-13.5 [facility] Comment on above: Performed By: #### C DP, CP, TROPI #### [facility] [address] [place], [place] [address] [employer] [facility]: Tray Stapleton MD Platelets (Bld) [#/Vol] 388 10*3/uL Normal 138-453 [facility] Comment on above: Performed By: #### C DP, CP, TROPI #### [facility] [address] [place] [address] [employer] [facility]: Tray Stapleton MD RBC (Bld) [#/Vol] 4.53 10*6/uL Normal 3.95-5.11 [facility] Comment on above: Performed By: #### C DP, CP, TROPI #### [address] [place] [address] [facility] [facility]: Tray Stapleton MD Abs. Basophil <0.03 Normal 0.00-0.20 [facility] Comment on above: Performed By: #### C DP, CP, TROPI #### [address] [place], [place] [address] [facility] [employer] [facility]: Tray Stapleton MD Abs.Imm.Granulocyt e <0.03 Normal 0.00-0.30 [place] Comment on above: Performed By: #### C DP, CP, TROPI #### [address] [place], [place] [address] [facility] [facility]: Tray Stapleton MD Abs.Neutrophil (Seg) 5.18 k/uL Normal 1.50-8.10 [place] Comment on above: Performed By: #### C DP, CP, TROPI #### [address] [place], [facility]83 [facility]: Tray Stapleton MD Lymphocytes (Bld) [#/Vol] 2.17 10*3/uL Normal 1.10-3.70 [place] Comment on above: Performed By: #### C DP, CP, TROPI #### [facility] [address] [place] [address] [facility] [facility]: Tray Stapleton MD Monocytes (Bld) [#/Vol] 0.55 10*3/uL Normal 0.10-1.20 [place] Comment on above: Performed By: #### C DP, CP, TROPI #### [facility] [address] [place] [address] [facility] [employer] [facility]: Tray Stapleton MD Neutrophil (Seg) 65 % Normal 36-[address] [facility] Comment on above: Performed By: #### C CEM CP, TROPI #### [facility] [address] [place], [place] [id number] [employer] [facility]: Tray Stapleton MD NRBC Automated 0.0 per 100 WBC Normal 0.0 [place] Comment on above: Performed By: #### C CEM CP, TROPI #### [address] [place], [place] [phone] [facility] [facility]: Tray Stapleton MD WBC (Bld) [#/Vol] 8.0 10*3/uL Normal 3.5-11.3 [place] Comment on above: Performed By: #### C CEM CP, TROPI #### [address] [place], [place] [phone] [facility] [facility]: Tray Stapleton MD Comp Metabolic Profon 2024 Albumin [Mass/Vol] 4.7 g/dL Normal 3.5-5.2 [place] Comment on above: Performed By: #### C CEM CP, TROPI #### [facility] [address] [place] [address] [facility] [facility]: Tray Stapleton MD Albumin/Glob Ratio 1.6 Normal 1.0-2.5 [place] Comment on above: Performed By: #### C DP, CP, TROPI #### [facility] [address] [place], [place] [phone] [facility] [facility]: Tary Stapleton MD Alkaline Phos 84 U/L Normal 35-104 [facility] Comment on above: Performed By: #### C DP, CP, TROPI #### [facility] [address] [place], [place] [phone] [facility] [facility]: Tray Stapleton MD ALT [Catalytic activity/Vol] 6 U/L Low 10-35 [place] Comment on above: Performed By: #### C DP, CP, TROPI #### [facility] [address] [place], [place] [phone] [facility] [facility]: Tray Stapleton MD Anion gap [Moles/Vol] 11 mmol/L Normal 9-16 [place] Comment on above: Performed By: #### C DP, CP, TROPI #### [facility] [address] [place], [place] [id number] [facility] [facility]: Tray Stapleton MD AST [Catalytic activity/Vol] 23 U/L Normal 10-35 [place] Comment on above: Performed By: #### C DP, CP, TROPI #### [address] [place], [place] [phone] [facility]: Tray Stapleton MD Bilirubin [Mass/Vol] 0.3 mg/dL Normal 0.00-1.20 [place] Comment on above: Performed By: #### C DP, CP, TROPI #### [facility] [address] [place], [place] [phone] [facility] [facility]: Tray Stapleton MD BUN/CRE Ratio 14 Normal 9-20 [facility] Comment on above: Performed By: #### C DP, CP, TROPI #### [address] [place], [place] [id number] [facility]: Tray Stapleton MD Calcium [Mass/Vol] 8.9 mg/dL Normal 8.6-10.4 [place] Comment on above: Performed By: #### C GABBY PRIEST, TROPI #### [facility] [address] [place] [address] [facility]: Tray Stapleton MD Chloride [Moles/Vol] 103 mmol/L Normal 98-107 [place] Comment on above: Performed By: #### C CEM CP, TROPI #### [facility] [address] [place] [address] [facility] [facility]: Tray Stapleton MD CO2 [Moles/Vol] 26 mmol/L Normal 20-31 [facility] Comment on above: Performed By: #### C GABBY PRIEST, TROPI #### [facility] [address] [place] [address] [facility] [employer] [facility]: Tray Stapleton MD Creatinine [Mass/Vol] 0.8 mg/dL Normal 0.50-0.90 [place] Comment on above: Performed By: #### C GABBY PRIEST, TROPI #### [facility] [address] [place] [address] [facility]: Tray Stapleton MD GFR/1.73 sq M.predicted among non-blacks MDRD (S/P/Bld) [Vol rate/Area] mL/min/{1.73_m2} Normal >60 [place] Comment on above: Result Comment: These results are not intended [...] following therapy that affects renal tubular secretion. Performed By: #### C CEM CP, TROPI #### [facility] [address] [place], [place] [phone] [facility]: Tray Stapleotn MD Glucose [Mass/Vol] 98 mg/dL Normal 74-99 [place] Comment on above: Performed By: #### C DP CP, TROPI #### [facility] [address] [place], [place] [phone] [facility]: Tray Stapleton MD Potassium [Moles/Vol] 3.8 mmol/L Normal 3.7-5.3 [place] Comment on above: Performed By: #### C DP, CP, TROPI #### [facility] [address] [place], [place] [id number] [facility]: Tray Stapleton MD Protein [Mass/Vol] 7.7 g/dL Normal 6.6-8.7 [place] Comment on above: Performed By: #### C CEM CP, TROPI #### [facility] [address] [place], [place] [phone] [facility]: Tray Stapleton MD Sodium [Moles/Vol] 140 mmol/L Normal 136-145 [place] Comment on above: Performed By: #### C CEM CP, TROPI #### [facility] [address] [place], [place] [phone] [facility]: Tray Stapleton MD Urea nitrogen [Mass/Vol] 11 mg/dL Normal 6-20 [place] Comment on above: Performed By: #### C DP, CP, TROPI #### [facility] [address] [place], [place] [phone] [facility]: Tray Stapleton MD Comprehensive Metabolic Pane [facility] 12-20-2024 Albumin [Mass/Vol] 4.7 g/dL 3.5 - 5.2 g/dL [facility] Albumin/Globulin [Mass ratio] 1.6 {ratio} 1.0 - 2.5 [facility] ALP [Catalytic activity/Vol] 84 U/L 35 - 104 U/L [facility] ALT [Catalytic activity/Vol] 6 U/L Low 10 - 35 U/L [facility] Anion gap [Moles/Vol] 11 mmol/L 9 - 16 mmol/L [facility] AST [Catalytic activity/Vol] 23 U/L 10 - 35 U/L [facility] Bilirubin [Mass/Vol] 0.3 mg/dL 0.00 - 1.20 mg/dL [facility] Calcium [Mass/Vol] 8.9 mg/dL 8.6 - 10. 4 mg/dL [facility] Chloride [Moles/Vol] 103 mmol/L 98 - 107 mmol/L [facility] CO2 [Moles/Vol] 26 mmol/L 20 - 31 mmol/L [facility] Creatinine [Mass/Vol] 0.8 mg/dL 0.50 - 0.90 mg/dL [facility] Est, Glom Filt Rate - PINF [facility] Comment on above: These results are not intended for use [...] following therapy that affects renal tubular secretion. Glucose [Mass/Vol] 98 mg/dL 74 - 99 mg/dL [facility] Interpretation and review of laboratory results Abnormal [facility] Potassium [Moles/Vol] 3.8 mmol/L 3.7 - 5.3 mmol/L [facility] Protein [Mass/Vol] 7.7 g/dL 6.6 - 8.7 g/dL [facility] Sodium [Moles/Vol] 140 mmol/L 136 - 145 mmol/L [facility] Urea nitrogen [Mass/Vol] 11 mg/dL 6 - 20 mg/dL [facility] Urea nitrogen/Creatinin e [Mass ratio] 14 mg/mg 9 - 20 [facility] [facility] Troponin I.cardiac High sensitivity method [Mass/Vol] ng/L 0 - 14 ng/L [facility] Comment on above: High Sensitivity Tro ponin values cannot be compared with other Troponin methodologies. [facility] Troponin, High Sens <6 Normal 0-14 [place] Comment on above: Result Comment: High Sensitivity Troponin values cannot be compared with other Troponin methodologies. Performed By: #### C DP, CP, TROPI #### [facility] [address] [place] [address] [facility]: Tray Stapleton MD CBCon 11-03-2024 Erythrocyte distribution width (RBC) [Ratio] 13.9 % 11.8 - 14.4 % [facility] Hematocrit (Bld) [Volume fraction] 40.6 % 36.3 - 47.1 % [facility] Hemoglobin (Bld) [Mass/Vol] 13.1 g/dL 11.9 - 15.1 g/dL [facility] MCH (RBC) [Entitic mass] 30.8 pg 25.2 - 33.5 pg [facility] MCHC (RBC) [Mass/Vol] 32.3 g/dL 28.4 - 34.8 g/dL [facility] MCV (RBC) [Entitic vol] 95.5 fL 82.6 - 102.9 fL [facility] Nucleated RBC/100 WBC (Bld) [Ratio] 0.0 % 0.0 per 100 WBC [facility] Platelet mean volume (Bld) [Entitic vol] 9.6 fL 8.1 - 13.5 fL [facility] Platelets (Bld) [#/Vol] 411 10*3/uL [facility] RBC (Bld) [#/Vol] 4.25 10*6/uL 3.95 - 5.1 1 m/uL [facility] WBC other (Bld) [#/Vol] 8.6 [facility] Erythrocyte distribution width (RBC) [Ratio] 13.9 % Normal 11.8-14.4 [place] Comment on above: Performed By: #### C P, CBC, HCG #### [facility] [place] [address] [facility] [employer]: Tray Stapleton MD #### PHEP, HIVCMB, AHBS, TREP #### [address] [phone] [facility]: Nabor Gatica MD Hematocrit (Bld) [Volume fraction] 40.6 % Normal 36.3-47.1 [place] Comment on above: Performed By: #### C P, CBC, HCG #### [address] [place] [address] [facility] [employer] [facility]: Tray Stapleton MD #### PHEP, HIVCMB, AHBS, TREP #### [address] [phone] [facility]: Nabor Gatica MD Hemoglobin (Bld) [Mass/Vol] 13.1 g/dL Normal 11.9-15.1 [place] Comment on above: Performed By: #### C P, CBC, HCG #### [address] [place] [address] [facility] [employer] [facility]: Tray Stapleton MD #### PHEP, HIVCMB, AHBS, TREP #### [address] [id number] [facility] [employer]: Nabor Gatica MD MCH (RBC) [Entitic mass] 30.8 pg Normal 25.2-33.5 [place] Comment on above: Performed By: #### C P, CBC, HCG #### [address] [place] [address] [facility] [facility]: Tray Stapleton MD #### PHEP, HIVCMB, AHBS, TREP #### [place] [place], [place] [phone] [facility] [employer] [facility]: Nabor Gatica MD MCHC (RBC) [Mass/Vol] 32.3 g/dL Normal 28.4-34.8 [place] Comment on above: Performed By: #### C P, CBC, HCG #### [address] [place] [phone] [facility]: Tray Stapleton MD #### PHEP, HIVCMB, AHBS, TREP #### [address] [phone] [facility] [employer] [facility]: Nabor Gatica MD MCV (RBC) [Entitic vol] 95.5 fL Normal 82.6-102.9 [place] Comment on above: Performed By: #### C P, CBC, HCG #### [address] [place] [phone] [facility] [employer] [facility]: Tray Stapleton MD #### PHEP, HIVCMB, AHBS, TREP #### [place] [phone] [facility]: Nabor Gatica MD NRBC Automated 0.0 per 100 WBC Normal 0.0 [place] Comment on above: Performed By: #### C P, CBC, HCG #### [address] [place] [phone] [facility] [employer] [facility]: Tray Stapleton MD #### PHEP, HIVCMB, AHBS, TREP #### [address] [phone] [facility] [facility]: Nabor Gatica MD Platelet mean volume (Bld) [Entitic vol] 9.6 fL Normal 8.1-13.5 [place] Comment on above: Performed By: #### C P, CBC, HCG #### [address] [place] [address] [employer]: Tray Stapleton MD #### PHEP, HIVCMB, AHBS, TREP #### [address] [address] [employer]: Nabor Gatica MD Platelets (Bld) [#/Vol] 411 10*3/uL Normal 138-453 [place] Comment on above: Performed By: #### C P, CBC, HCG #### [address] [place], [place] [phone] [employer] [employer] [facility]: Tray Stapleton MD #### PHEP, HIVCMB, AHBS, TREP #### [facility] [address] [place] [address] [employer]: Nabor Gatica MD RBC (Bld) [#/Vol] 4.25 10*6/uL Normal 3.95-5.11 [place] Comment on above: Performed By: #### C P, CBC, HCG #### [address] [place], [place] [phone] [employer]: Tray Stapleton MD #### PHEP, HIVCMB, AHBS, TREP #### [address] [address] [employer] [facility]: Nabor Gatica MD WBC (Bld) [#/Vol] 8.6 10*3/uL Normal 3.5-11.3 [place] Comment on above: Performed By: #### C P, CBC, HCG #### [address] [place], [place] [phone] [employer] [facility]: Tray Stapleton MD #### PHEP, HIVCMB, AHBS, TREP #### [address] [place] [address] [employer]: Nabor Gatica MD Comp Metabolic Profon 2023 Albumin [Mass/Vol] 4.4 g/dL Normal 3.5-5.2 [place] Comment on above: Performed By: #### C P, CBC, HCG #### [address] [place] [phone] [facility] [employer] [facility]: Tray Stapleton MD #### PHEP, HIVCMB, AHBS, TREP #### [address] [place], [place] [phone] [employer] [facility]: Nabor Gatica MD Albumin/Glob Ratio 1.5 Normal 1.0-2.5 [place] Comment on above: Performed By: #### C P, CBC, HCG #### [address] [place] [address] [employer]: Tray Stapleton MD #### PHEP, HIVCMB, AHBS, TREP #### [address] [place], [place] [phone] [employer]: Nabor Gatica MD Alkaline Phos 91 U/L Normal 35-104 [facility] Comment on above: Performed By: #### C P, CBC, HCG #### [address] [place] [address] [employer]: Tray Stapleton MD #### PHEP, HIVCMB, AHBS, TREP #### [address] [phone] [employer] [facility]: Nabor Gatica MD ALT [Catalytic activity/Vol] 9 U/L Low 10-35 [place] Comment on above: Performed By: #### C P, CBC, HCG #### [address] [place] [address] [employer]: rTay Stapleton MD #### PHEP, HIVCMB, AHBS, TREP #### [address] [phone] [facility] [employer] [facility]: Nabor Gatica MD Anion gap [Moles/Vol] 11 mmol/L Normal 9-16 [place] Comment on above: Performed By: #### C P, CBC, HCG #### [address] [place], [place] 1498683 [employer] [facility]: Tray Stapleton MD #### PHEP, HIVCMB, AHBS, TREP #### [address] [phone] [facility] [facility]: Nabor Gatica MD AST [Catalytic activity/Vol] 23 U/L Normal 10-35 [place] Comment on above: Performed By: #### C P, CBC, HCG #### [address] [place], [place] [phone] [employer] [facility]: Tray Stapleton MD #### PHEP, HIVCMB, AHBS, TREP #### [address] [phone] [facility] [facility]: Nabor Gatica MD Bilirubin [Mass/Vol] 0.4 mg/dL Normal 0.00-1.20 [place] Comment on above: Performed By: #### C P, CBC, HCG #### [address] [place] [phone] [facility] [employer] [facility]: Tray Stapleton MD #### PHEP, HIVCMB, AHBS, TREP #### [address] [phone] [facility] [facility]: Nabor Gatica MD BUN/CRE Ratio 19 Normal 9-20 [facility] Comment on above: Performed By: #### C P, CBC, HCG #### [address] [place], [place] [phone] [employer] [facility]: Tray Stapleton MD #### PHEP, HIVCMB, AHBS, TREP #### [address] [phone] [facility] [employer] [facility]: Nabor Gatica MD Calcium [Mass/Vol] 9.3 mg/dL Normal 8.6-10.4 [place] Comment on above: Performed By: #### C P, CBC, HCG #### [facility] [address] [place], [place] [phone] [employer]: Tray Stapleton MD #### PHEP, HIVCMB, AHBS, TREP #### [address] [phone] [facility] [employer] [facility]: Nabor Gatica MD Chloride [Moles/Vol] 106 mmol/L Normal 98-107 [place] Comment on above: Performed By: #### C P, CBC, HCG #### [facility] [address] [place], [place] [phone] [employer] [facility]: Tray Stapleton MD #### PHEP, HIVCMB, AHBS, TREP #### [address] [phone] [employer] [facility]: Nabor Gatica MD CO2 [Moles/Vol] 25 mmol/L Normal 20-31 [facility] Comment on above: Performed By: #### C P, CBC, HCG #### [facility] [address] [place], [place] [phone] [employer]: Tray Stapleton MD #### PHEP, HIVCMB, AHBS, TREP #### [address] [phone] [facility] [facility]: Nabor Gatica MD Creatinine [Mass/Vol] 0.7 mg/dL Normal 0.50-0.90 [place] Comment on above: Performed By: #### C P, CBC, HCG #### [facility] [address] [place] [address] [employer]: Tray Stapleton MD #### PHEP, HIVCMB, AHBS, TREP #### [address] [phone] [facility] [employer] [facility]: Nabor Gatica MD GFR/1.73 sq M.predicted among non-blacks MDRD (S/P/Bld) [Vol rate/Area] mL/min/{1.73_m2} Normal >60 [place] Comment on above: Result Comment: These results are not intended [...] following therapy that affects renal tubular secretion. Performed By: #### C P, CBC, HCG #### [facility] [address] [place] [address] [place] [address] [employer]: Tray Stapleton MD #### PHEP, HIVCMB, AHBS, TREP #### [address] [address] [facility] [facility]: Nabor Gatica MD Glucose [Mass/Vol] 79 mg/dL Normal 74-99 [place] Comment on above: Performed By: #### C P, CBC, HCG #### [address] [place] [address] [employer]: Tray Stapleton MD #### PHEP, HIVCMB, AHBS, TREP #### [address] [address] [facility] [facility]: Nabor Gatica MD Potassium [Moles/Vol] 3.9 mmol/L Normal 3.7-5.3 [place] Comment on above: Performed By: #### C P, CBC, HCG #### [facility] [address] [place] [address] [place] [address] [employer]: Tray Stapleton MD #### PHEP, HIVCMB, AHBS, TREP #### [address] [address] [facility] [facility]: Nabor Gatica MD Protein [Mass/Vol] 7.4 g/dL Normal 6.6-8.7 [place] Comment on above: Performed By: #### C P, CBC, HCG #### [facility] [address] [place] [address] [employer]: Tray Stapleton MD #### PHEP, HIVCMB, AHBS, TREP #### [address] [phone] [facility] [facility]: Nabor Gatica MD Sodium [Moles/Vol] 142 mmol/L Normal 136-145 [place] Comment on above: Performed By: #### C P, CBC, HCG #### [address] [place] [address] [employer]: Tray Stapleton MD #### PHEP, HIVCMB, AHBS, TREP #### [address] [phone] [facility] [employer] [facility]: Nabor Gatica MD Urea nitrogen [Mass/Vol] 13 mg/dL Normal 6-20 [place] Comment on above: Performed By: #### C P, CBC, HCG #### [address] [place] [address] [employer] [facility]: Tray Stapleton MD #### PHEP, HIVCMB, AHBS, TREP #### [address] [phone] [facility] [employer] [facility]: Nabor Gatica MD Comprehensive Metabolic Pane [facility] 11-03-2024 Albumin [Mass/Vol] 4.4 g/dL 3.5 - 5.2 g/dL [facility] Albumin/Globulin [Mass ratio] 1.5 {ratio} 1.0 - 2.5 [facility] ALP [Catalytic activity/Vol] 91 U/L 35 - 104 U/L [facility] ALT [Catalytic activity/Vol] 9 U/L Low 10 - 35 U/L [facility] Anion gap [Moles/Vol] 11 mmol/L 9 - 16 mmol/L [facility] AST [Catalytic activity/Vol] 23 U/L 10 - 35 U/L [facility] Bilirubin [Mass/Vol] 0.4 mg/dL 0.00 - 1.20 mg/dL [facility] Calcium [Mass/Vol] 9.3 mg/dL 8.6 - 10. 4 mg/dL [facility] Chloride [Moles/Vol] 106 mmol/L 98 - 107 mmol/L [facility] CO2 [Moles/Vol] 25 mmol/L 20 - 31 mmol/L [facility] Creatinine [Mass/Vol] 0.7 mg/dL 0.50 - 0.90 mg/dL [facility] Est, [place] Brizuelat Rate - PINF [facility] Comment on above: These results are not intended for use [...] following therapy that affects renal tubular secretion. Glucose [Mass/Vol] 79 mg/dL 74 - 99 mg/dL [facility] Interpretation and review of laboratory results Abnormal [facility] Potassium [Moles/Vol] 3.9 mmol/L 3.7 - 5.3 mmol/L [facility] Protein [Mass/Vol] 7.4 g/dL 6.6 - 8.7 g/dL [facility] Sodium [Moles/Vol] 142 mmol/L 136 - 145 mmol/L [facility] Urea nitrogen [Mass/Vol] 13 mg/dL 6 - 20 mg/dL [facility] Urea nitrogen/Creatinin e [Mass ratio] 19 mg/mg 9 - 20 [facility] HCG Qualitative, Serumon HCG ( test) Ql Negative NEGATIVE [facility] Comment on above: Specimens with hCG l evels near the threshold of the test (25 mIU/mL) may give a negative or indeterminate result. In such cases, another test should be performed with a new specimen in 48-72 hours. If early is suspected clinically in this setting, correlation with quantitative serum b-hCG level is suggested. [facility] has confirmed the use of plasma for this test. This has not been cleared or approved by the U.S. Food and Drug Administration. The FDA has determined that such clearance is not necessary. [facility] HCG Screen, Bloodon 11-03-20 HCG Screen, Blood Negative Normal NEG [facility] Comment on above: Result Comment: Spec imens with hCG levels near the threshold of the test (25 mIU/mL) may give a negative or indeterminate result. In such cases, another test should be performed with a new specimen in 48-72 hours. If early is suspected clinically in this setting, correlation with quantitative serum b-hCG level is suggested. [facility] has confirmed the use of plasma for this test. This has not been cleared or approved by the U.S. Food and Drug Administration. The FDA has determined that such clearance is not necessary. Performed By: #### C P, CBC, HCG #### [facility] [address] [place] [address] [facility] [employer] [facility]: Tray Stapleton MD #### PHEP, HIVCMB, AHBS, TREP #### [address] [address] [facility] [employer] [facility]: Nabor Gatica MD HIV Ag/Abon 11-03-2024 HIV Ag/Ab Non-Reactive Normal NR [place] Comment on above: Result Comment: No l aboratory evidence of HIV infection. If acute HIV infection is suspected, consider testing for HIV-1 RNA. Performed By: #### B MP, TROPI, CDP #### [facility] [address] [place] [address] [facility] [employer] [facility]: Tray Stapleton MD HIV Screenon 11-03-2024 HIV 1+2 Ab+HIV1 p24 Ag IA Ql Non-Reactive NONREACTIVE [facility] Comment on above: No laboratory eviden ce of HIV infection. If acute HIV infection is suspected, consider testing for HIV-1 RNA. [facility] Hep B Surf Abon 11-03-2024 Hep B Surf Ab <3.50 Normal <10 [facility] Comment on above: Result Comment: REFERENCE RANGE: <10.0 NON-REACTIVE/NOT IMMUNE >=10.0 REACTIVE/IMMUNE Performed By: #### B VAL TROPI, CDP #### [facility] [address] [place] [address] [place]. [place], [place] [phone] [facility] [employer]: Tray Stapleton MD Hepatitis Acute [facility] 11-03 Hep A Ab,IgM Non-Reactive Normal [facility] Comment on above: Performed By: #### B DEVYN ENAL, CDP #### [address] [place], [place] [phone] [facility] [employer] [facility]: Tray Stapleton MD Hep B Core Ab,IgM Non-Reactive Normal [facility] Comment on above: Performed By: #### B DEVYN NEAL, CDP #### [facility] [address] [place] [address] [place] [address] [employer]: Tray Stapleton MD Hep B Surf Ag Non-Reactive Normal [facility] Comment on above: Performed By: #### B DEVYN NEAL, CDP #### [address] [place], [place] [phone] [employer] [facility]: Tray Stapleton MD Hep C Ab Non-Reactive Normal [facility] Comment on above: Result Comment: The hepatitis C procedure used [...] recommended by ordering HCV RNA by PCR. Performed By: #### B VAL TROPI, CDP #### [facility] [address] [place] [address] Dr. [place], [place] [phone] [facility] [facility]: Tray Stapleton MD Hepatitis B Surface Antibody on 11-03-2024 HBV surface Ab IA Qn m[IU]/mL NINF [facility] Comment on above: REFERENCE RANGE: <10.0 NON-REACTIVE/NOT IMMUNE >=10.0 REACTIVE/IMMUNE Hepatitis Panel, Acuteon HAV IgM IA Ql Non-Reactive NONREACTIVE [facility] HBV core IgM IA Ql Non-Reactive NONREACTIVE [facility] HBV surface Ag IA Ql Non-Reactive NONREACTIVE [facility] HCV Ab IA Ql Non-Reactive NONREACTIVE [facility] Comment on above: The hepatitis C procedure used in our [...] recommended by ordering HCV RNA by PCR. No Panel Informationon 11-03 [facility] T. pallidum Abon 11-03-2024 T. pallidum Ab IA Ql (S) Non-Reactive NONREACTIVE [facility] Comment on above: T. pallidum antibodies are not detected. There is no serological evidence of infection with T. pallidum (early primary syphilis cannot be excluded). Retest in 2-4 weeks if syphilis is clinically suspect. [facility] T.pallidum Ab Screenon 11-03 T.pallidum Ab Screen Non-Reactive Normal NR [place] Comment on above: Result Comment: T. pallidum antibodies are not detected. There is no serological evidence of infection with T. pallidum (early primary syphilis cannot be excluded). Retest in 2-4 weeks if syphilis is clinically suspect. Performed By: #### B MP, TROPI, CDP #### [facility] [address] [place] [address] [facility] [employer] [facility]: Tray Stapleton MD Flu A/B Ag Detectionon 10-17 Flu A Ag Detection Positive Abnormal NEG [place] Comment on above: Result Comment: for Influenza A Antigen Performed By: #### F SUSANNAH #### [facility] [address] [place] [address] [employer] [facility]: Tray Stapleton MD Flu B Ag Detection Negative Normal NEG [place] Comment on above: Result Comment: for Influenza B Antigen. Performed By: #### F SUSANNAH #### [facility] [address] [place] [address] [facility] [facility]: Tray Stapleton MD Rapid influenza A/B antigens on 10-17-2024 FLUAV Ag Ql (Unsp spec) Positive Abnormal NEGATIVE [facility] Comment on above: for Influenza A Anti gen FLUBV Ag Ql (Unsp spec) Negative NEGATIVE [facility] Comment on above: for Influenza B Anti gen. Interpretation and review of laboratory results Abnormal [facility] XR KNEE LEFT (1-2 VIEWS)on 1 11-18-2023 XR KNEE LEFT (1-2 VIEWS) EXAMINATION: TWO XRAY VIEWS OF THE LEFT [...] by: Julius Torres MD 09/18/24 Final result Normal [facility] XR Knee - left 1 or 2 Viewso n 09-18-2024 No acute abnormality of the knee. [facility] RADIOLOGY EXAMINATION: TWO XRAY VIEWS OF THE LEFT KNEE 09/18/2024 1:51 pm COMPARISON: None. HISTORY: ORDERING SYSTEM PROVIDED HISTORY: pain TECHNOLOGIST PROVIDED HISTORY: Reason for exam:->pain Is the patient ?->No What reading provider will be dictating this exam?->CRC FINDINGS: No evidence of acute fracture or dislocation. No focal osseous lesion. No evidence of joint effusion. No focal soft tissue abnormality. [facility] RADIOLOGY Julius Torres MD - 09/18/2024 EXAMINATION: TWO XRAY VIEWS OF THE LEFT [...] IMPRESSION: No acute abnormality of the knee. [email or web address] Radiology Study observation (narrative) [email or web address] XR Knee - left 1 or 2 ViewsO rdered By: Julius Torres on 09-18-2024 [email or web address] Work Phone: Bacteria identifiedon 2023 Bacteria identified Cx Nom (U) Test: Urine Culture Specimen Source: Clean Catch/Voided Specimen Type: Urine Specimen Date: 07/22/2024126 Result Date: 07/23/2024 0833 Result Status: Final result Abnormal: No Resulting Lab: [facility] [id number] [place] [address] CULTURE No significant growth Normal [facility] Comment on above: Performed By: #### 5 902-2 #### MATEUS CHENG ([id number]) [facility] ([facility]) [address] [place] [address] Blood Gas Lactic Acid, Karon anderson 07-22-2024 Lactate (BldV) [Moles/Vol] 1.5 mmol/L 0.4 - 2.0 mmol/L [facility] CBC W Auto Differential pane l (Bld)on 07-22-2024 Basophils (Bld) [#/Vol] 0.04 10*3/uL [facility] Basophils/100 WBC (Bld) 0.4 % 0.0 - 2.0 % [facility] Eosinophils (Bld) [#/Vol] 0.11 10*3/uL [facility] Eosinophils/100 WBC (Bld) 1.1 % 0.0 - 6.0 % [facility] Erythrocyte distribution width (RBC) [Ratio] 15.8 % High 11.5 - 14.5 % [facility] Hematocrit (Bld) [Volume fraction] 38.2 % 36.0 - 46.0 % [facility] Hemoglobin (Bld) [Mass/Vol] 12.4 g/dL 12.0 - 16.0 g/dL [facility] Immature granulocytes (Bld) [#/Vol] 0.03 10*3/uL [facility] Immature granulocytes/100 WBC (Bld) 0.3 % 0.0 - 0.9 % [facility] Comment on above: Immature Granulocyte Count (IG) includes promyelocytes, myelocytes and metamyelocytes but does not include bands. Percent differential counts (%) should be interpreted in the context of the absolute cell counts (cells/UL). Interpretation and review of laboratory results Abnormal [facility] Lymphocytes (Bld) [#/Vol] 2.25 10*3/uL [facility] Lymphocytes/100 WBC (Bld) 22.6 % 13.0 - 44.0 % [facility] MCH (RBC) [Entitic mass] 29.5 pg 26.0 - 34.0 pg [facility] MCHC (RBC) [Mass/Vol] 32.5 g/dL 32.0 - 36.0 g/dL [facility] MCV (RBC) [Entitic vol] 91 fL 80 - 100 fL [facility] Monocytes (Bld) [#/Vol] 0.75 10*3/uL [facility] Monocytes/100 WBC (Bld) 7.5 % 2.0 - 10.0 % [facility] Neutrophils (Bld) [#/Vol] 6.76 10*3/uL [facility] Comment on above: Percent differential counts (%) should be interpreted in the context of the absolute cell counts (cells/uL). Neutrophils/100 WBC (Bld) 68.1 % 40.0 - 80.0 % [facility] Nucleated RBC/100 WBC (Bld) [Ratio] 0.0 % [facility] Platelets (Bld) [#/Vol] 388 10*3/uL [facility] RBC (Bld) [#/Vol] 4.21 10*6/uL [facility] WBC (Bld) [#/Vol] 9.9 10*3/uL [facility] Basophils (Bld) [#/Vol] 0.04 x10*3/uL Normal 0.00-0.10 [facility] Comment on above: Performed By: #### 5 7021-8 #### MATEUS CHENG ([id number]) [facility] ([facility]) [address] [place] [address] Basophils/100 WBC (Bld) 0.4 % Normal 0.0-2.0 [facility] Comment on above: Performed By: #### 5 7021-8 #### MATEUS CHENG ([id number]) [facility] ([facility]) [address] [place] [address] Eosinophils (Bld) [#/Vol] 0.11 x10*3/uL Normal 0.00-0.70 [facility] Comment on above: Performed By: #### 5 7021-8 #### MATEUS CHENG ([id number]) [facility] ([facility]) [address] [place] [address] Eosinophils/100 WBC (Bld) 1.1 % Normal 0.0-6.0 [facility] Comment on above: Performed By: #### 5 7021-8 #### MATEUS CHENG ([id number]) [facility] ([facility]) [address] [place] [address] Erythrocyte distribution width (RBC) [Ratio] 15.8 % High 11.5-14.5 [facility] Comment on above: Performed By: #### 5 7021-8 #### MATEUS CHENG ([id number]) [facility] ([facility]) [address] [place] [address] Hematocrit (Bld) [Volume fraction] 38.2 % Normal 36.0-46.0 [facility] Comment on above: Performed By: #### 5 7021-8 #### MATEUS CHENG ([id number]) [facility] ([facility]) [address] [place] [address] Hemoglobin (Bld) [Mass/Vol] 12.4 g/dL Normal 12.0-16.0 [facility] Comment on above: Performed By: #### 5 7021-8 #### MATEUS CHENG ([id number]) [facility] ([facility]) [address] [place] [address] Immature granulocytes (Bld) [#/Vol] 0.03 x10*3/uL Normal 0.00-0.70 [facility] Comment on above: Performed By: #### 5 7021-8 #### MATEUS CHENG ([id number]) [facility] [facility] ([facility]) [address] [place] [address] 18023 Immature granulocytes/100 WBC (Bld) 0.3 % Normal 0.0-0.9 [facility] Comment on above: Result Comment: Joanie ture Granulocyte Count (IG) includes promyelocytes, myelocytes and metamyelocytes but does not include bands. Percent differential counts (%) should be interpreted in the context of the absolute cell counts (cells/UL). Performed By: #### 5 7021-8 #### MATEUS CHENG ([id number]) [facility] ([facility]) [address] [place] [address] 42887 Lymphocytes (Bld) [#/Vol] 2.25 x10*3/uL Normal 1.20-4.80 [facility] Comment on above: Performed By: #### 5 7021-8 #### MATEUS CHENG ([id number]) [facility] ([facility]) [address] [place] [address] 54783 Lymphocytes/100 WBC (Bld) 22.6 % Normal 13.0-44.0 [facility] Comment on above: Performed By: #### 5 7021-8 #### MATEUS CHENG ([id number]) [facility] ([facility]) [address] [place] [address] 45129 MCH (RBC) [Entitic mass] 29.5 pg Normal 26.0-34.0 [facility] Comment on above: Performed By: #### 5 7021-8 #### MATEUS CHENG ([id number]) [facility] ([facility]) [address] [place] [address] 70767 MCHC (RBC) [Mass/Vol] 32.5 g/dL Normal 32.0-36.0 [facility] Comment on above: Performed By: #### 5 7021-8 #### MATEUS CHENG ([id number]) [facility] ([facility]) [address] [place] [address] 37811 MCV (RBC) [Entitic vol] 91 fL Normal 80-100 [facility] Comment on above: Performed By: #### 5 7021-8 #### MATEUS CHENG ([id number]) [facility] ([facility]) [address] [place] [address] 56381 Monocytes (Bld) [#/Vol] 0.75 x10*3/uL Normal 0.10-1.00 [facility] Comment on above: Performed By: #### 5 7021-8 #### MATEUS CHENG ([id number]) [facility] ([facility]) [address] [place] [address] 66035 Monocytes/100 WBC (Bld) 7.5 % Normal 2.0-10.0 [facility] Comment on above: Performed By: #### 5 7021-8 #### MATEUS CHENG ([id number]) [facility] ([facility]) [address] [place] [address] 85182 Neutrophils (Bld) [#/Vol] 6.76 x10*3/uL Normal 1.20-7.70 [facility] Comment on above: Result Comment: Perc ent differential counts (%) should be interpreted in the context of the absolute cell counts (cells/uL). Performed By: #### 5 7021-8 #### MATEUS CHENG ([id number]) [facility] ([facility]) [address] [place] [address] 61648 Neutrophils/100 WBC (Bld) 68.1 % Normal 40.0-80.0 [facility] Comment on above: Performed By: #### 5 7021-8 #### MATEUS CHENG ([id number]) [facility] ([facility]) [address] [place] [address] 92652 Nucleated RBC/100 WBC (Bld) [Ratio] 0.0 /100 WBCs Normal 0.0-0.0 [facility] Comment on above: Performed By: #### 5 7021-8 #### MATEUS CHENG ([id number]) [facility] ([facility]) [address] [place] [address] 80674 Platelets (Bld) [#/Vol] 388 x10*3/uL Normal 150-450 [facility] Comment on above: Performed By: #### 5 7021-8 #### MATEUS CHENG ([id number]) [facility] ([facility]) [address] [place] [address] 13984 RBC (Bld) [#/Vol] 4.21 x10*6/uL Normal 4.00-5.20 [facility] Comment on above: Performed By: #### 5 7021-8 #### MATEUS CHENG ([id number]) [facility] ([facility]) [address] [place] [address] 85389 WBC (Bld) [#/Vol] 9.9 x10*3/uL Normal 4.4-11.3 [facility] Comment on above: Performed By: #### 5 7021-8 #### MATEUS CHENG ([id number]) [facility] ([facility]) [address] [place] [address] ANGIO CHEST ABDOMEN PELVI Son 07-22-2024 CT ANGIO CHEST ABDOMEN PELVIS Interpreted By: Alberto Cha, STUDY: CT ANGIO CHEST ABDOMEN PELVIS; 07/22/2024 1:54 am INDICATION: Signs/Symptoms:Chest pain radiating toback and headache with HTN r/o dissection. COMPARISON: None. ACCESSION NUMBER(S): [id number] ORDERING CLINICIAN: WILMAR COKER TECHNIQUE: Axial non-contrast images of the chest [...] acute retroperitoneal abnormality. No enlarged lymph nodes. BOWEL/MESENTERY/PERITON EUM: No inflammatory bowel wall thickening or dilatation. [...] Alberto Cha 07/22/2024 2:22 AM Dictation workstation: [id number] [facility] CTA Chest and abdominal vess els W contrast Melissa 07-22-2024 1. No thoracic or abdominal aortic aneurysm [...] Alberto Cha 07/22/2024 2:22 AM Dictation workstation: [id number] [facility] Interpreted By: Alberto Cha, STUDY: CT ANGIO CHEST ABDOMEN PELVIS; 07/22/2024 1:54 am INDICATION: Signs/Symptoms:Chest pain radiating toback and headache with HTN r/o dissection. COMPARISON: None. ACCESSION NUMBER(S): [id number] ORDERING CLINICIAN: WILMAR COKER TECHNIQUE: Axial non-contrast images of the chest [...] acute retroperitoneal abnormality. No enlarged lymph nodes. BOWEL/MESENTERY/PERITON EUM: No inflammatory bowel wall thickening or dilatation. The appendix is not identified; however, there are no pericecal inflammatory changes. No significant ascites, free air, or fluid collection. OSSEOUS STRUCTURES: No acute osseous abnormality. [facility] Alberto Cha MD - 07/22/2024 Interpreted By: Alberto Cha, STUDY: CT ANGIO CHEST ABDOMEN PELVIS; 07/22/2024 1:54 am INDICATION: Signs/Symptoms:Chest pain radiating toback and headache with HTN r/o dissection. COMPARISON: None. ACCESSION NUMBER(S): [id number] ORDERING CLINICIAN: WILMAR COKER TECHNIQUE: Axial non-contrast images of the chest [...] acute retroperitoneal abnormality. No enlarged lymph nodes. BOWEL/MESENTERY/PERITON EUM: No inflammatory bowel wall thickening or dilatation. [...] Alberto Cha 07/22/2024 2:22 AM Dictation workstation: [id number] [facility] Work Phone: Radiology Study observation (narrative) [facility] Work Phone: CTA Chest and abdominal vess els W contrast IVOrdered By: Alberto Cha on 07-22-2024 [facility] Work Phone: Coagulation surface inducedo n 07-22-2024 aPTT Coag (PPP) [Time] 36 s Normal 27-38 [facility] Comment on above: Order Comment: The A PTT is no longer used for monitoring Unfractionated Heparin Therapy. For monitoring Heparin Therapy, use the Heparin Assay. Performed By: #### 1 4979-9 #### MATEUS CHENG ([id number]) [facility] ([facility]) [address] [place] [address] Coagulation tissue factor in ducedon 07-22-2024 PT Coag (PPP) [Time] 11.5 s Normal 9.8-12.8 [facility] Comment on above: Performed By: #### 5 902-2 #### MATEUS CHENG ([id number]) [facility] [place] [address] [place] [address] Comprehensive metabolic 2000 panelon 07-22-2024 Albumin BCP dye [Mass/Vol] 4.5 g/dL 3.4 - 5.0 g/dL [facility] ALP [Catalytic activity/Vol] 62 U/L 33 - 110 U/L [facility] ALT With P-5'-P [Catalytic activity/Vol] 8 U/L 7 - 45 U/L [facility] Comment on above: Patients treated wit h Sulfasalazine may generate falsely decreased results for ALT. Anion gap [Moles/Vol] 12 mmol/L 10 - 20 mmol/L [facility] AST With P-5'-P [Catalytic activity/Vol] 17 U/L 9 - 39 U/L [facility] Bilirubin [Mass/Vol] 0.3 mg/dL 0.0 - 1.2 mg/dL [facility] Calcium [Mass/Vol] 9.4 mg/dL 8.6 - 10. 3 mg/dL [facility] Chloride [Moles/Vol] 107 mmol/L 98 - 107 mmol/L [facility] CO2 [Moles/Vol] 24 mmol/L 21 - 32 mmol/L [facility] Creatinine [Mass/Vol] 0.65 mg/dL 0.50 - 1.05 mg/dL [facility] eGFR - PINF [facility] Comment on above: Calculations of leticia mated GFR are performed using the 2020 CKD-EPI Study Refit equation without the race variable for the IDMS-Traceable creatinine methods. https://jasn.asnjournals.org/content//ASN.957151902 8 Glucose [Mass/Vol] 98 mg/dL 74 - 99 mg/dL [facility] Potassium [Moles/Vol] 3.9 mmol/L 3.5 - 5.3 mmol/L [facility] Protein [Mass/Vol] 7.8 g/dL 6.4 - 8.2 g/dL [facility] Sodium [Moles/Vol] 139 mmol/L 136 - 145 mmol/L [facility] Urea nitrogen [Mass/Vol] 12 mg/dL 6 - 23 mg/dL [facility] Albumin BCP dye [Mass/Vol] 4.5 g/dL Normal 3.4-5.0 [facility]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 History Tobacco Use Smoking status: Every Day Packs/day: .5 Types: Cigarettes Smokeless tobacco: Not on file Substance and Sexual Activity Alcohol use: Not Currently Drug use: Yes Types: Amphetamines Comment: former amphetamine Sexual activity: Not on file ALLERGIES Allergen Reactions Amoxicillin Rash Atarax [Hydroxyzine] Unknown Tramadol Unknown Review of Systems Constitutional: Negative for activity change, appetite change, chills, fatigue, fever and unexpected weight change. HENT: Negative for congestion, rhinorrhea, sneezing, sore throat and trouble swallowing. Eyes: Negative for pain and visual disturbance. Respiratory: Negative for cough, chest tightness, shortness of breath and wheezing. Cardiovascular: Negative for chest pain, palpitations and leg swelling. Gastrointestinal: Negative for abdominal distention, abdominal pain, nausea and vomiting. Genitourinary: Negative for difficulty urinating, dysuria, flank pain, frequency and urgency. Musculoskeletal: Negative for gait problem, neck pain and neck stiffness. Skin: Positive for wound. Negative for color change and rash. Neurological: Negative for dizziness, weakness, light-headedness and headaches. Psychiatric/Behavioral: Negative for agitation, behavioral problems and confusion. Physical Exam Vitals [08/22/23 0619] BP Pulse Temp Temp src Resp SpO2 Weight Height 150/103 (!) 102 36.7 ?C (98.1 ?F) Oral 19 100 % -- -- Physical Exam Vitals and nursing note reviewed. Constitutional: General: She is not in acute distress. Appearance: Normal appearance. She is not ill-appearing or toxic-appearing. Comments: Pt is well-appearing, well-nourished, and non toxic in appearance. Communicates in full sentences with ease. No evidence of acute cardiac or respiratory distress. Resting in bed comfortably HENT: Head: Normocephalic and atraumatic. Right Ear: External ear normal. Left Ear: External ear normal. Mouth/Throat: Mouth: Mucous membranes are moist. Pharynx: No oropharyngeal exudate or posterior oropharyngeal erythema. Eyes: Conjunctiva/sclera: Conjunctivae normal. Cardiovascular: Rate and Rhythm: Normal rate and regular rhythm. Pulses: Normal pulses. Radial pulses are 2+ on the right side and 2+ on the left side. Posterior tibial pulses are 2+ on the right side and 2+ on the left side. Heart sounds: Normal heart sounds. Pulmonary: Effort: Pulmonary effort is normal. No respiratory distress. Breath sounds: Normal breath sounds. Abdominal: General: Bowel sounds are normal. There is no distension. Palpations: Abdomen is soft. Tenderness: There is no abdominal tenderness. There is no right CVA tenderness, left CVA tenderness, guarding or rebound. Musculoskeletal: General: No swelling or tenderness. Normal range of motion. Cervical back: Normal range of motion. Right lower leg: No edema. Left lower leg: No edema. Comments: No midline spinal process tenderness, step-offs, deformities. Full range of motion intact including shoulder abduction/abduction, elbow flexion/extension, wrist flexion/extension, hip flexion/extension, knee flexion/extension, dorsiflexion/plantarfle xion. Negative Homans' sign bilaterally. No bony tenderness, defo (more content not included)... Normal [facility] 05-02-2023 [facility] Telephone (NEURAV) DONALDO AMBROCIO ([id number]) 1985 F Date Time Provider Department 05/02/23 HAL PRADO During your visit today, we recorded the following information about you: Amy Packer 05/02/2023 6:17 PM Signed 05/02/2023 After visit summary faxed to David Thomson [facility] [phone] with confirmation received. Amy Packer Dermatology Nurse Practitioner Allergies As of Date: 05/02/2023 Noted Allergy Reaction AMOXICILLIN 11/11/2021 2 - Rash ATARAX (HYDROXYZINE) 08/02/2022 16 - Unknown TRAMADOL 08/02/2022 16 - Unknown Date Reviewed: 05/01/2023 Reviewed by: Hal Prado DO - Fully Assessed Reason for Visit: Patient Update [1234] Prescriptions as of 05/02/2023 - nortriptyline (PAMELOR) 10 mg capsule Take 1 capsule by mouth daily at bedtime. - cyclobenzaprine (FLEXERIL) 5 mg tablet Take 0.5-1 tablets by mouth twice daily as needed for muscle spasm. - ibuprofen (MOTRIN) 400 mg tablet Take 1 tablet by mouth every 6 hours as needed for pain. - aspirin, enteric coated (ECOTRIN LOW STRENGTH) 81 mg EC tablet Take 1 tablet by mouth once daily. - ergocalciferol 50,000 unit capsule (VITAMIN D2, DRISDOL) Take 1 capsule by mouth one time a week for 15 doses. - Calcium Citrate-Vitamin D3 (CITRACAL+D) 315 mg-6.25 mcg (250 unit) tab Take 1 tablet by mouth twice daily with meals. Problem List As Of Date 05/02/2023 Noted Resolved Sprain of posterior talofibular ligament of lef*08/10/2022 Sprain of deltoid ligament of left ankle [S93.4*08/10/2022 Encounter Status:Closed by AMY PACKER on 05/02/23 Normal [facility] Office Visit (Family Bertrand khan)on 10-12-2022 Follow-up visit Diagnoses/Problems Blunt force injury (959.9) (T14.90XA) Patient Discussion/Summary PT states her dog head butted her in the right side of forehead this morning PT went to sleep and when she woke up she vomited twice. reviewed concussion protocol DEBORAH Protocol discussed red flag symptoms when to proceed to ER vitals are stable discussed smoking cessation all questions answered follow up in office if signs or symptoms are worsening, not improving or please schedule follow up with PCP if shortness of breath and or chest pain seek emergency department 24 hour hotline telephone numbers Suicide or mental health mobile crisis help line [phone] Child Abuse or neglect [id number] Elder Abuse or neglect [phone] Rape Crisis [phone] Domestic Violence [phone] Narcotics Anonymous [phone] Provider Impressions s/s of blunt force injury to the right side of head no signs of distress Chief Complaint Possible concussion History of Present Illness PT states her dog head butted her in the right side of forehead this morning PT went to sleep and when she woke up she vomited twice . PT states she is doing better but her head hurts. Review of Systems all systems were reviewed and are normal unless otherwise noted in HPI all charts reviewed if applicable [place], [place] [employer] Constitutional: Fever, weight gain, weight loss, appetite change, night sweats, fatigue, chills. Eyes : blurry, double vision, vision, loss, tearing, redness, pain, sensitivity to light, glaucoma. Ears: nose, mouth, and throat: Hearing loss, ringing in the ears, ear pain, nasal congestion, nasal drainage, nosebleeds, mouth, throat, irritation tooth problem. Cardiovascular: chest pain, pressure, heart racing, palpitations, sweating, leg swelling, high or low blood pressure Pulmonary: Cough, yellow or green sputum, blood and sputum, shortness of breath, wheezing Gastrointestinal: Nausea, vomiting, diarrhea, constipation, pain, blood in stool, or vomitus, heartburn, difficulty swallowing Genitourinary: incontinence, abnormal bleeding, abnormal discharge, urinary frequency, urinary hesitancy, pain, impotence sexual problem, infection, urinary retention Musculoskeletal: Pain, stiffness, joint, redness or warmth, arthritis, back pain, weakness, muscle wasting, sprain or fracture Neuro: Weight weakness, dizziness, change in voice, change in taste change in vision, change in hearing, loss, or change of sensation, trouble walking, balance problems coordination problems, shaking, speech problem Endocrine: cold or heat intolerance, blood sugar problem, weight gain or loss missed periods hot flashes, sweats, change in body hair, change in libido, increased thirst, increased urination Heme/lymph: Swelling, bleeding, problem anemia, bruising, enlarged lymph nodes Allergic/immunologic: H. plus nasal drip, watery itchy eyes, nasal drainage, immunosuppressed The above were reviewed and noted negative except as noted in HPI and Problem List. Active Problems Allergic to insect stings (V15.06) (Z91.038) Itchy skin (698.9) (L29.9) Left ankle pain (719.47) (M25.572) Pruritic erythematous rash (698.8) (L29.8) Tobacco user (305.1) (Z72.0) Past Medical History History of Left ankle pain (719.47) (M25.572) Resolved Date: 02 Aug 2022 Family History Family history of hypertension (V17.49) (Z82.49) Social History Tobacco user (305.1) (Z72.0) Allergies Amoxicillin TABS Recorded By: Rosa Mcmanus; 06/13/2022 7:48:13 PM Hydroxyzines Recorded By: Rosa Mcmanus; 06/13/2022 7:48:13 PM Tramadol Recorded By: Rosa Mcmanus; 06/13/2022 7:48:13 PM Vitals Vital Signs Recorded: [id number] 02:48PM Auwxdwjcjcr47.5 F Heart Rate70 Ydzgqavanbx96 Nzepmkzn075 Qrtpzfkwl24 Height5 ft 9 in Cmwuja940 lb BMI Pueiawejiq77.98 kg/m2 BSA Calculated1.63 Tobacco Usea) Yes PHQ-2 #1. Over the last 2 weeks have you felt down, depressed or hopeless? (If yes, answer PHQ-9 below)No PHQ-2 #2. Over the last 2 weeks have you felt little interest or pleasure in doing things? (If yes, answer PHQ-9 below)No Falls Screening (Age 18+)a) No falls within the last year O2 [id number] Physical Exam Physical Exam Constitutional: well nourished pleasant Head and Face: normal, palpation of the face and sinuses normal Eyes: external inspection of the eyes normal Ears Nose Mouth Throat: external inspection of ears nose/ nares patent normal. otoscopic exam tympanic membrane was not red was not bulging had normal motility had an intact light reflex was not obscured and did not have a PE tube in place. mouth buccal moist and intact tonsils intact dentition intact thyroid palpable no nodes palpated no tenderness present Cardiovascular: palpation of heart normal, heart rate and rhythm normal , normal s1 and s2 without murmur or gallops Pulmonary: no respiratory distress clear bilateral breath sounds Abdomen: abdomen flat, bowel soun (more content not included)... [facility] 09-01-2022 [facility] Office Visit (ORAVON ) DONALDO AMBROCIO ([id number]) 1985 F Date Time Provider Department 09/01/22 2:30 PM AMY MACARIO During your visit today, we recorded the following information about you: Amy Macario PA-C 09/01/2022 4:03 PM Signed New Patient Referring Physician: David Thomson CNP Donaldo Ambrocio is a 37 year old female referred by tk dominguez PA-C for her left ankle pain and numb toes. She states that over one ago she fell down one of the steps at her house. She states that her pain level today is 3/10 she states that her toes are still numb. She states that her ankle pain is stabbing. She states that she is over all doing better with the boot but is hopeful it will come off today. She states that she is not currently taking anything for the pain she is feeling. . Do you have a metal allergy?: No Current Outpatient Medications Medication Sig Dispense Refill acetaminophen (TYLENOL EXTRA STRENGTH) 500 mg tablet Take 2 tablets by mouth every 6 hours as needed for pain. 90 tablet 0 ibuprofen (MOTRIN) 600 mg tablet Take 1 tablet by mouth every 6 hours as needed (for pain.). 90 tablet 0 aspirin, enteric coated (ECOTRIN LOW STRENGTH) 81 mg EC tablet Take 1 tablet by mouth once daily. 30 tablet 1 ergocalciferol 50,000 unit capsule (VITAMIN D2, DRISDOL) Take 1 capsule by mouth one time a week for 15 doses. 15 capsule 0 Calcium Citrate-Vitamin D3 (CITRACAL+D) 315 mg-6.25 mcg (250 unit) tab Take 1 tablet by mouth twice daily with meals. 60 tablet 1 No current facility-administered medications for this visit. Allergies As of Date: 09/01/2022 Allergen Noted Reaction AMOXICILLIN 11/11/2021 Rash ATARAX [HYDROXYZINE] 08/02/2022 Unknown TRAMADOL 08/02/2022 Unknown Fully Assessed 09/01/2022 PAST MEDICAL HISTORY Diagnosis Date Chronic obstructive pulmonary disease (COPD) (HCC) Degenerative disc disease at L5-S1 level Hypertension No past surgical history on file. 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 Yes PAIN SCALE: 3 on a scale of 0-10 Pain Onset:sudden Does the pain radiate? No Associated Factors: swelling Precipitating Factors: Standing, Walking, and As day progresses Relieving Factors: resting Progression: Improving Previous Treatment as follows: none ROS: Have you had any problems or treatment of the following? If yes please describe. Head:No Eyes:No Ears, nose or throat: Yes: Lungs: Yes: COPD Heart or blood pressure: Yes: HTN Stomach or Bowels: No Kidney or Bladder: No Female organs: No Nerve or mental illness: Yes: DM: No Peripheral Vascular Disease: No Inflammatory Arthritis: No Other: none Bleeding Disorders: No FAMILY HISTORY: Has any member of your immediate family (parents or siblings) had this same problem? If so , who? and what? No SOCIAL HISTORY Marital Status: Tobacco: Smoker, 1/2 ppd x 22 years Alcohol: No alcohol consumption WORKERS' COMPENSATION CLAIM Have you missed work for this problem? No If yes, what dates have you missed? Pending Litigation? No What tests have been done for this problem? X-Rays The patient's pertinent medical history from [facility] has been reviewed. PFOMIS forms have been reviewed. The patient's history of present illness has been confirmed. PHYSICAL EXAM: left ankle Physical examination reveals an alert and oriented patient who is in no acute distress while sitting and is of normal mood and affect. LMP 10/12/2021 Gait Cycle: Normal Yes, Limp: none. Inspection: Alignment: neutral Symmetry: Swelling: no. Redness: no. Ecchymosis: no Effusion: 0 Palpation: Warmth: no, Tenderness:Yes: Ankle: Anterior Joint Line and Lateral Mallelous ROM: Ankle- Extension:30 Ankle-Flexion:90. Strength: 5 Stability: Ligamentous instability: no Specialized Tests: na Neurologic Status: normal. Vascular Status: normal Skin: Normal Right Upper Extremities:No gross abnormalities Left Upper Extremities:No gross abnormalities Donaldo comes in today after wearing her boot for the past 4 weeks still having pain and tenderness. She states still is having some numbness in her fourth and fifth toes she does admit to having some numbness in her fingers but states she has cervical stenosis. Xrays: None MRI: None Dx: (S93.492A) Sprain of anterior talofibular ligament of left ankle, initial encounter (primary encounter diagnosis) (S93.422A) Sprain of deltoid ligament of left ankle, initial encounter Plan: Continue wearing boot while walking You may return to work wearing boot Return for follow-up in 3 weeks Co (more content not included)... Normal [facility] ED NOTEon 08-03-2022 ED NOTE HNO ID: [id number] Author: Darrick Comer RN Service: ? Author Type: Registered Nurse Type: ED Notes Filed: 08/03/2022 1:00 AM Note Text: Discharge instructions and follow up care reviewed and discussed with patient. Patient verbalized understanding of discharge instructions and follow up care. Patient has no further questions. Vital signs stable. Normal [facility] ED NOTE HNO ID: [id number] Author: Pelon Tijerina RN Service: Nursing Author Type: Registered Nurse Type: ED Notes Filed: 08/02/2022 10:58 PM Note Text: Pt states left ankle injury Plan of care -Monitor Patient's Vital Signs -Monitor pain -Maintain patient safety and privacy -Provide comfort measures as needed -Call light in place -Siderails up, bed in locked and low position. Normal [facility] ED PROV NOTEon 08-03-2022 ED PROV NOTE HNO ID: [id number] Author: Dany Red MD Service: Emergency Medicine Author Type: Physician Type: ED Provider Notes Filed: 08/03/2022 12:38 AM Note Text: ED Provider Note Patient Name: Donaldo Ambrocio : 1985 SERVICE DATE: 08/02/22 History Patient presents with: Ankle Injury HPI Pt is 37 year old female who comes to ED with c/o L ankle injury. Pt twisted her ankle awkwardly while taking down a step. Complains of aching and sore pain that is rather severe located along the left lateral ankle. No pain or injury anywhere else. PAST MEDICAL HISTORY Diagnosis Date Chronic obstructive pulmonary disease (COPD) (HCC) Degenerative disc disease at L5-S1 level Hypertension History reviewed. No pertinent surgical history. No family history on file. Social History Tobacco Use Smoking status: Every Day Packs/day: 0.50 Types: Cigarettes Smokeless tobacco: Not on file Substance and Sexual Activity Alcohol use: Not on file Drug use: Yes Types: Amphetamines Sexual activity: Not on file ALLERGIES Allergen Reactions Amoxicillin Rash Atarax [Hydroxyzine] Unknown Tramadol Unknown Review of Systems Constitutional: Negative. Respiratory: Negative. Cardiovascular: Negative. Musculoskeletal: See hpi Neurological: Negative. Physical Exam Vitals [08/02/22 2259] BP Pulse Temp Temp src Resp SpO2 Weight Height 143/108 (!) 114 36.9 ?C (98.5 ?F) Temporal 18 100 % -- -- Physical Exam Vitals and nursing note reviewed. Constitutional: Appearance: Normal appearance. HENT: Head: Normocephalic and atraumatic. Cardiovascular: Rate and Rhythm: Normal rate and regular rhythm. Pulses: Normal pulses. Pulmonary: Effort: Pulmonary effort is normal. Breath sounds: Normal breath sounds. Musculoskeletal: Comments: L ankle swelling over lateral malleolus, tender over anterior portion of talus. No prox fib tenderness, no base of 5th MT tenderness. Skin: General: Skin is warm. Neurological: General: No focal deficit present. Mental Status: She is alert. Diagnostic Testing ED Labs Ordered and Reviewed - No data to display Procedures ED Course / Clinical Impression Clinical Impressions as of 08/03/22 0027 Sprain of other ligament of left ankle, initial encounter Injury of left ankle, initial encounter MDM / Disposition / Plan MDM 37 year old female presenting with L ankle injury Xray findings as above Deborah/airsplint provided, crutches given Podiatry f/u as needed SIGNATURE: MD Dany Kenyon MD 08/03/22 0038 Normal [facility] XR ANKLE 3V AP/LAT/OBL LTon 08-03-2022 XR ANKLE 3V AP/LAT/OBL LT * * *Final Report* * * DATE OF EXAM: Aug 02 2022 11:11PM VHX [id number] - XR ANKLE 3V AP/LAT/OBL LT / PROCEDURE REASON: Fracture, ankle * * * * Physician Interpretation * * * * EXAMINATION: XR ANKLE 3V AP/LAT/OBL LT CLINICAL HISTORY: Fracture, ankle Comparison: None RESULT: Bones: Thin bone fragment inferior to the fibula and adjacent to the lateral talus. The ankle mortise is symmetric. Soft tissues: Soft tissue swelling of the ankle predominantly around the lateral malleolus. IMPRESSION: Thin bone fragment inferior to the fibula and adjacent to the lateral talus, possibly small lateral talar avulsion. Critical Care Transport Nurse: PSCTerry Transcribe Date/Time: Aug 02 2022 11:37P Dictated by : CY HAQ MD This examination was interpreted and the report reviewed and electronically signed by: CY HAQ MD on Aug 02 2022 11:40PM EST [id number] Normal [facility] Office Visit (Family Medicin e)on 08-02-2022 Follow-up visit Diagnoses/Problems Family history of hypertension (V17.49) (Z82.49) : Mother Left ankle pain (719.47) (M25.572) Orders Left ankle pain Start: HYDROcodone-Acetaminoph en 5-300 MG Oral Tablet; TAKE 1 TABLET EVERY 4 TO 6 HOURS NEEDED FOR PAIN Renew: Crutch Handgrips; USE DIRECTED PMH: Left ankle pain Xray Ankle 3 View; Status:Hold For - Scheduling; Requested for:02Aug2022; Laterality : Left Radiologist to Determine Optimal Study : Y What are the patient's signs and symptoms? : left ankle pain Patient Discussion/Summary Patient presents in office with a complaint of left ankle and foot pain. Patient admits while walking down a step she rolled her ankle. left ankle pain and swelling -short 4 day Course of norco -x-ray ordered for next day continue ice 15 minutes on and off,elevate ambulation as tolerated discussed smoking cessation all questions answered follow up in office if signs or symptoms are worsening, not improving or please schedule follow up with PCP if shortness of breath and or chest pain seek emergency department 24 hour hotline telephone numbers Suicide or mental health mobile crisis help line [phone] Child Abuse or neglect [id number] Elder Abuse or neglect [phone] Rape Crisis [phone] Domestic Violence [phone] Narcotics Anonymous [phone] Provider Impressions left ankle pain after twisting it swelling present Chief Complaint Patient presents in office with a complaint of left ankle and foot pain. Patient admits while walking down a step she rolled her ankle. Patient has been experiencing a tingling sensation in her toes. History of Present Illness Patient presents in office with a complaint of left ankle and foot pain. Patient admits while walking down a step she rolled her ankle. Patient has been experiencing a tingling sensation in her toes. Review of Systems all systems were reviewed and are normal unless otherwise noted in HPI all charts reviewed if applicable [facility] Constitutional: Fever, weight gain, weight loss, appetite change, night sweats, fatigue, chills. Eyes : blurry, double vision, vision, loss, tearing, redness, pain, sensitivity to light, glaucoma. Ears: nose, mouth, and throat: Hearing loss, ringing in the ears, ear pain, nasal congestion, nasal drainage, nosebleeds, mouth, throat, irritation tooth problem. Cardiovascular: chest pain, pressure, heart racing, palpitations, sweating, leg swelling, high or low blood pressure Pulmonary: Cough, yellow or green sputum, blood and sputum, shortness of breath, wheezing Gastrointestinal: Nausea, vomiting, diarrhea, constipation, pain, blood in stool, or vomitus, heartburn, difficulty swallowing Genitourinary: incontinence, abnormal bleeding, abnormal discharge, urinary frequency, urinary hesitancy, pain, impotence sexual problem, infection, urinary retention Musculoskeletal: Pain, stiffness, joint, redness or warmth, arthritis, back pain, weakness, muscle wasting, sprain or fracture Neuro: Weight weakness, dizziness, change in voice, change in taste change in vision, change in hearing, loss, or change of sensation, trouble walking, balance problems coordination problems, shaking, speech problem Endocrine: cold or heat intolerance, blood sugar problem, weight gain or loss missed periods hot flashes, sweats, change in body hair, change in libido, increased thirst, increased urination Heme/lymph: Swelling, bleeding, problem anemia, bruising, enlarged lymph nodes Allergic/immunologic: H. plus nasal drip, watery itchy eyes, nasal drainage, immunosuppressed The above were reviewed and noted negative except as noted in HPI and Problem List. Active Problems Allergic to insect stings (V15.06) (Z91.038) Itchy skin (698.9) (L29.9) Pruritic erythematous rash (698.8) (L29.8) Tobacco user (305.1) (Z72.0) Past Medical History History of Left ankle pain (719.47) (M25.572) Resolved Date: 02 Aug 2022 Family History Family history of hypertension (V17.49) (Z82.49) Social History Tobacco user (305.1) (Z72.0) Allergies Amoxicillin TABS Recorded By: Rosa Mcmanus; 06/13/2022 7:48:13 PM Hydroxyzines Recorded By: Rosa Mcmanus; 06/13/2022 7:48:13 PM Tramadol Recorded By: Rosa Mcmanus; 06/13/2022 7:48:13 PM Vitals Vital Signs Recorded: 02Aug2022 06:17PM Mccarzztwuw63 Rbwbhoqx850 Oviadbpwz111 Height5 ft 9 in Physical Exam Physical Exam Constitutional: well nourished pleasant Head and Face: normal, palpation of the face and sinuses normal Eyes: external inspection of the eyes normal Ears Nose Mouth Throat: external inspection of ears nose/ nares patent normal. otoscopic exam tympanic membrane was not red was not bulging had normal motility had an intact light reflex was not obscured and did not have a PE tube in place. mouth buccal moist and intact tonsils intact dentition intact thyroid palpable no nodes palpated no tenderness present (more content not included)... Normal [employer] Office Visit (Family Bertrand khan)on 06-13-2022 Follow-up visit Diagnoses/Problems Itchy skin (698.9) (L29.9) Allergic to insect stings (V15.06) (Z91.038) Pruritic erythematous rash (698.8) (L29.8) Tobacco user (305.1) (Z72.0) Orders Allergic to insect stings Administered: Triamcinolone Acetonide 40 MG/ML Injection Suspension Allergic to insect stings, Itchy skin Start: Hydrocortisone 2.5 % External Cream; APPLY SPARINGLY TO AFFECTED AREA(S) 2 TO 3 TIMES DAILY Start: predniSONE 10 MG Oral Tablet; 4x3 days, 3x3 days, 2x3 days, 1x3 days Patient Discussion/Summary Patient was seen and examined. Diagnosis, treatment, treatment options, and possible complications of today's illness discussed and explained to patient. Patient to take medication/s associated with this visit. Advised avoidance of known or suspected allergen. Advised hypoallergenic diet. Advised to come back if with worsening or persistent symptoms. Advised to come back if there is wheezing, change in voice quality, shortness of breath or chest pain. Patient verbalized understanding of plan of care. Patient to come back in 7 - 10 days if needed for worsening symptoms. Chief Complaint Patient is with complaint of red, itchy, elevated, and painful rash on both ankles and left armpit secondary to multiple bee sting. Adult Risk Screening Tobacco Screening: DONALDO uses tobacco. Has used tobacco in the past 6 months. Has tried to quit or thought about quitting tobacco. Smoking/ tobacco counseling 3-10 mins. Depression/Suicide Screening: During the past 2 weeks, the patient has not felt down, depressed or hopeless. During the past 2 weeks, the patient has not felt little interest or pleasure in doing things. She does not have a risk of suicide. She has not had thoughts of harming others. History of Present Illness Patient is a 36 year female who came to office clinic today with complaint of red, itchy, elevated, and painful rash on both ankles and left armpit secondary to multiple bee sting. Patient states that she was stung by bees on both ankles yesterday and on the left armpit today. Patient states she must be allergic to bee sting because the stung areas became very itchy, swollen, red, and painful. She also had some difficulty breathing yesterday which spontaneously disappeared later last night. She states that the rash are red, itchy, not painful, with no discharge, and no bleeding. She tried OTC allergy medications but it afforded only slight / temporary relief of symptoms. She denies any wheezing, shortness of breath, change in voice, nor chest pain at present. She denies fever, chills, cough, nor runny nose. She denies any other signs or symptoms. Review of Systems General: no weight loss, generally healthy, no fatigue Head: no headaches / sinus pain, no vertigo, no injury Eyes: no diplopia, no tearing, no pain, Ears: no change in hearing, no tinnitus, no bleeding, no vertigo Mouth: no dental difficulties, no gingival bleeding, no sore throat, no loss of sense of taste Nose: no discharge, no congestion, no bleeding, no obstruction, no loss of sense of smell Neck: no stiffness, no pain, no tenderness, no masses, no bruit Pulmonary: no dyspnea, no wheezing, no hemoptysis, no cough Cardiovascular: no chest pain, no palpitations, no syncope, no orthopnea Gastrointestinal: no change in appetite, no dysphagia, no abdominal pains, no diarrhea, no emesis, no melena Genito Urinary: no dysuria, no urinary urgency, no nocturia, no incontinence, no change in nature of urine Musculoskeletal: no muscle ache, no joint pain, no limitation of range of motion, no paresthesia, no numbness Skin: (+) red, itchy, elevated, and painful rash on both ankles and left armpit secondary to multiple bee sting. Constitutional: no fever, no chills, no night sweats Active Problems Allergic to insect stings (V15.06) (Z91.038) Itchy skin (698.9) (L29.9) Pruritic erythematous rash (698.8) (L29.8) Tobacco user (305.1) (Z72.0) Social History Tobacco user (305.1) (Z72.0) Allergies Amoxicillin TABS Recorded By: Rosa Mcmanus; 06/13/2022 7:48:13 PM Hydroxyzines Recorded By: Rosa Mcmanus; 06/13/2022 7:48:13 PM Tramadol Recorded By: Rosa Mcmanus; 06/13/2022 7:48:13 PM Current Meds Medication NameInstructionReason ZyrTEC 10 MG Oral Tablet ChewableCHEW AND SWALLOW 1 TABLET DAILY DIRECTED Vitals Vital Signs Recorded: 13Jun2022 07:46PM Qijlloyimjc38 Gxvplmel177 Jjrmjfegs56 Height5 ft 9 in Nxppva651 lb BMI Hohxxgrdjz60.37 kg/m2 BSA Calculated1.9 Physical Exam General: ambulatory, in no acute distress Head: normocephalic, no lesions Eyes: pink palpebral conjunctiva, anicteric sclerae, PERRLA, EOM's full Nose: nasal mucosa normal, no nasal discharge, no bleeding, no obstruction Throat: clear, no exudate, no lesions Neck: supple, no masses, no bruits Chest: symmetrical chest expansion, no lagging, no retractions, clear breath sounds, no rales, no wheezes Extremities: full and equal periphera (more content not included)... Normal [facility] Iron Binding Capon 2 % Fe Saturation 24 % Normal 20-55 [facility] Iron [Mass/Vol] 74 ug/dL Normal 37-145 [facility] Total Fe Binding Cap 313 ug/dL Normal 250-450 [facility] Unbound Fe Bind Cap 239 ug/dL Normal 112-347 [facility] Comment on above: Result Comment: [employer] [address], [place] [id number] [phone] CBC with Auto Differentialon 06-07-2022 Basophils (Bld) [#/Vol] 0.1 10*3/uL 0 - 0.2 K/uL [facility] Basophils/100 WBC (Bld) 0.8 % [facility] Eosinophils (Bld) [#/Vol] 0.3 10*3/uL 0 - 0.7 K/uL [facility] Eosinophils/100 WBC (Bld) 4.1 % [facility] Hematocrit (Bld) [Volume fraction] 35.8 % Low 37 - 47 % [facility] Hemoglobin (Bld) [Mass/Vol] 11.8 g/dL Low 12 - 16 g/dL [facility] Lymphocytes (Bld) [#/Vol] 2.2 10*3/uL 1 - 4.8 K/uL [facility] Lymphocytes/100 WBC (Bld) 30.6 % [facility] MCH (RBC) [Entitic mass] 30.4 pg 27 - 31.3 pg [facility] MCHC (RBC) [Mass/Vol] 33.0 % 33 - 37 % [facility] MCV (RBC) [Entitic vol] 92.0 fL 82 - 100 fL [facility] Monocytes (Bld) [#/Vol] 0.6 10*3/uL 0.2 - 0.8 K/uL [facility] Monocytes/100 WBC (Bld) 8.3 % [facility] Neutrophils Absolute 4.1 K/uL 1.4 - 6.5 K/uL [facility] Neutrophils/100 WBC (Bld) 56.2 % [facility] Platelet distribution width (Bld) [Ratio] 15.3 % High 11.5 - 14.5 % [facility] Platelets (Bld) [#/Vol] 401 10*3/uL High 130 - 400 K/uL [facility] RBC (Bld) [#/Vol] 3.89 10*6/uL Low [facility] WBC (Bld) [#/Vol] 7.3 10*3/uL 4.8 - 10.8 K/uL [facility] Comprehensive Metabolic Pane madyson 06-07-2022 Albumin [Mass/Vol] 4.5 g/dL 3.5 - 4.6 g/dL [facility] ALP (Bld) [Catalytic activity/Vol] 62 U/L 40 - 130 U/L [facility] ALT [Catalytic activity/Vol] 9 U/L 0 - 33 U/L [facility] Anion gap [Moles/Vol] 8 mmol/L Low [facility] AST [Catalytic activity/Vol] 17 U/L 0 - 35 U/L [facility] Bilirubin [Mass/Vol] mg/dL 0.2 - 0.7 mg/dL [facility] Calcium [Mass/Vol] 9.2 mg/dL 8.5 - 9.9 mg/dL [facility] Chloride [Moles/Vol] 105 mmol/L [facility] CO2 [Moles/Vol] 27 mmol/L [facility] Creatinine [Mass/Vol] 0.71 mg/dL 0.5 - 0.9 mg/dL [facility] Free PSA/Total PSA [Mass fraction] 7.3 g/dL 6.3 - 8 g/dL [facility] GFR >60.0 60 - PINF [facility] Comment on above: >60 mL/min/1.73m2 EG FR, calc. for ages 18 and older using the MDRD formula (not corrected for weight), is valid for stable renal function. GFR Non- >60.0 60 - PINF [facility] Comment on above: >60 mL/min/1.73m2 EG FR, calc. for ages 18 and older using the MDRD formula (not corrected for weight), is valid for stable renal function. Globulin (S) [Mass/Vol] 2.8 g/dL 2.3 - 3.5 g/dL [facility] Glucose [Mass/Vol] 104 mg/dL High 70 - 99 mg/dL [employer] [facility] Potassium [Moles/Vol] 4.2 mmol/L [facility] [employer] Sodium [Moles/Vol] 140 mmol/L [facility] [employer] Urea nitrogen (BldV) [Mass/Vol] 17 mg/dL 6 - 20 mg/dL [facility] No Panel Informationon 06-07 Interpretation and review of laboratory results Abnormal [facility] Colonoscopy studyon 03-31-20 No dictation [facility] Work Phone: Colonoscopy studyOrdered By: User Roller on 03-31-2022 [employer] Work Phone: POC UR-QUALon 03-06 Beta HCG ( test) Ql (U) Negative Negative [employer] Work Phone: Lot Number [id number] [employer] Phone: Negative QC Pass/Fail Pass [employer] Work Phone: Positive QC Pass/Fail Pass [employer] Work Phone: [employer] Work Phone: MRI CERVICAL SPINE WO CONTRA STon 03-17-2022 C5-6 and C6-7 postoperative changes. C5-6 borderline canal narrowing without disc level anterior extradural defect. C6-7 posterior disc-endplate osteophyte complex with associated mild-moderate canal narrowing. C6-7 left mild-moderate or moderate foraminal stenosis due to uncovertebral joint arthrosis; minimal right foraminal narrowing. Uncovertebral joint degenerative changes elsewhere in the cervical spine with minimal to very mild foraminal narrowing as detailed above. 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 [facility] RADIOLOG[facility] MRI of the cervical spine HISTORY: Neck pain and left arm weakness. COMPARISON: 02/23/2023 2 cervical spine x-ray. TECHNIQUE: Sagittal T1, T2, and inversion recovery. Axial gradient echo and T2. 3 plane T2 localizer. FINDINGS: Cervical cord has a normal signal and morphology. C5-6 anterior plate and screw fusion susceptibility artifact , and likely postoperative disc-level fusion device. C6-7 disc level likely fusion device susceptibility artifact. Vertebral body heights maintained with no sign of pathologic marrow replacement or acute bony abnormality. Craniocervical junction: Mild odontoid-anterior arch C1 degenerative changes. No craniocervical junction stenosis. No cerebellar tonsillar ectopia. C2-3 (C2): Disc is unremarkable. No canal or foraminal stenosis. C3-4 (C3): Disc space height maintained. Subtle anterior disc bulging. Subtle anterolisthesis of C3 relative to 4 may be associated with relatively rigidity of the more inferior spine described above. Minimal posterior disc bulging slightly eccentric towards the left anterior thecal sac mass effect but without significant canal stenosis. Mild left uncovertebral joint arthrosis with very minimal foraminal narrowing. Right foramina are unremarkable. C4-5 (C4): Mild disc space narrowing. Mild anterior disc bulging and subtle endplate spurring. Mild posterior disc bulging and anterior thecal sac mass effect. Very slight protrusion of the disc below the C5 superior endplate. Mild canal narrowing with the AP dimension measuring 9.3 mm. No cord compression with CSF signal anterior posterior to the cord preserved. Mild bilateral uncovertebral joint degenerative changes without significant foraminal narrowing. C5-6 (C5): Postoperative fusion as described above. No disc level anterior extradural defect. Borderline canal narrowing with the AP dimension measuring 9.8 mm likely due to congenitally small canal. CSF signal anterior and posterior to the cord maintained. Bilateral uncovertebral joint degenerative changes but with very mild foraminal narrowing. C6-7 (C6): Intervertebral disc level fusion implant susceptibility artifact as detailed above. Posterior disc margin disc signal anterior extra dural defect with some component of endplate spurring extending 2.6 mm posterior to the endplate and causing mild anterior thecal sac mass effect. Mild-moderate canal narrowing with 7.9 mm canal AP dimension. C6-7 left uncovertebral joint arthrosis with associated mild-moderate or moderate foraminal narrowing. Right uncovertebral joint arthrosis with minimal foraminal narrowing. Right neural foraminal approximately 4 mm nerve root sleeve cyst. Nerve root sleeve cysts are common incidental findings and rarely symptomatic. C7-T1 (C7): Disc is unremarkable. No canal or foraminal narrowing. 3.7 mm right nerve root sleeve cyst. T1-2 and T2-3 discs are included on the sagittal sequence and are essentially unremarkable without sign of canal or foraminal narrowing. Suspect minimal anterior T2-3 endplate spurring. [facility] RAD[facility] Diamond Mckenna MD - 03/17/2022 MRI of the cervical spine HISTORY: Neck pain and left arm weakness. COMPARISON: 02/23/2023 2 cervical spine x-ray. TECHNIQUE: Sagittal T1, T2, and inversion recovery. Axial gradient echo and T2. 3 plane T2 localizer. FINDINGS: Cervical cord has a normal signal and morphology. C5-6 anterior plate and screw fusion susceptibility artifact , and likely postoperative disc-level fusion device. C6-7 disc level likely fusion device susceptibility artifact. Vertebral body heights maintained with no sign of pathologic marrow replacement or acute bony abnormality. Craniocervical junction: Mild odontoid-anterior arch C1 degenerative changes. No craniocervical junction stenosis. No cerebellar tonsillar ectopia. C2-3 (C2): Disc is unremarkable. No canal or foraminal stenosis. C3-4 (C3): Disc space height maintained. Subtle anterior disc bulging. Subtle anterolisthesis of C3 relative to 4 may be associated with relatively rigidity of the more inferior spine described above. Minimal posterior disc bulging slightly eccentric towards the left anterior thecal sac mass effect but without significant canal stenosis. Mild left uncovertebral joint arthrosis with very minimal foraminal narrowing. Right foramina are unremarkable. C4-5 (C4): Mild disc space narrowing. Mild anterior disc bulging and subtle endplate spurring. Mild posterior disc bulging and anterior thecal sac mass effect. Very slight protrusion of the disc below the C5 superior endplate. Mild canal narrowing with the AP dimension measuring 9.3 mm. No cord compression with CSF signal anterior posterior to the cord preserved. Mild bilateral uncovertebral joint degenerative changes without significant foraminal narrowing. C5-6 (C5): Postoperative fusion as described above. No disc level anterior extradural defect. Borderline canal narrowing with the AP dimension measuring 9.8 mm likely due to congenitally small canal. CSF signal anterior and posterior to the cord maintained. Bilateral uncovertebral joint degenerative changes but with very mild foraminal narrowing. C6-7 (C6): Intervertebral disc level fusion implant susceptibility artifact as detailed above. Posterior disc margin disc signal anterior extra dural defect with some component of endplate spurring extending 2.6 mm posterior to the endplate and causing mild anterior thecal sac mass effect. Mild-moderate canal narrowing with 7.9 mm canal AP dimension. C6-7 left uncovertebral joint arthrosis with associated mild-moderate or moderate foraminal narrowing. Right uncovertebral joint arthrosis with minimal foraminal narrowing. Right neural foraminal approximately 4 mm nerve root sleeve cyst. Nerve root sleeve cysts are common incidental findings and rarely symptomatic. C7-T1 (C7): Disc is unremarkable. No canal or foraminal narrowing. 3.7 mm right nerve root sleeve cyst. T1-2 and T2-3 discs are included on the sagittal sequence and are essentially unremarkable without sign of canal or foraminal narrowing. Suspect minimal anterior T2-3 endplate spurring. IMPRESSION: C5-6 and C6-7 postoperative changes. C5-6 borderline canal narrowing without disc level anterior extradural defect. C6-7 posterior disc-endplate osteophyte complex with associated mild-moderate canal narrowing. C6-7 left mild-moderate or moderate foraminal stenosis due to uncovertebral joint arthrosis; minimal right foraminal narrowing. Uncovertebral joint degenerative changes elsewhere in the cervical spine with minimal to very mild foraminal narrowing as detailed above. 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 [employer] Phone: MRI CERVICAL SPINE WO CONTRA STOrdered By: Diamond Mckenna on 03-17-2022 [employer] Phone: MRI CERVICAL SPINE WO CONTRA STolondon 03-16-2022 Radiology Study observation (narrative) [employer] Phone: CT Urogramon 02-13-2022 Stable bilateral nonobstructing calculi similar to the prior CT. No hydronephrosis. Limited visualization of the distal ureters, otherwise no suspicious filling defects within the collecting system. [facility] RADIOLOGY EXAMINATION: CT ABDO MEN AND PELVIS WITHOUT AND WITH IV CONTRAST, INCLUDING EXCRETORY PHASE IMAGING (CT UROGRAM) CLINICAL HISTORY: Nephrolithiasis and dysuria.. . TECHNIQUE: CT urogram protocol including unenhanced, renal parenchymal phase and excretory phase renal imaging was obtained following IV contrast. No oral contrast was given. CONTRAST: IV: 100 ml Isovue 300 Oral: None. All CT scans at this facility use dose modulation, iterative reconstruction, and/or weight based dosing when appropriate to reduce radiation dose to as low as reasonably achievable. COMPARISON: CT abdomen and pelvis 01/04/2022 RESULT: Kidneys and urinary tract: Right: Multiple punctate nonobstructing renal calculi similar in the interpolar region and lower pole to prior. No hydronephrosis. No renal masses. Limited visualization of the distal ureter otherwise, the imaged opacified calices, renal pelvis and ureter are normal without dilation, filling defect, or stricture. Left: 2 mm nonobstructing left upper pole calculus similar to prior. No renal masses. No hydronephrosis. Limited visualization of the distal ureter otherwise, the imaged opacified calices, renal pelvis and ureter are normal without dilation, filling defect, or stricture. Bladder: No filling defect, calculus, focal or diffuse wall thickening. Abdomen and Pelvis: Liver: No mass or lesion. Biliary: No bile duct dilation. Gallbladder is unremarkable. Pancreas: No mass or duct dilation. Spleen: No mass. No splenomegaly. Adrenals: No mass. GI tract: No dilation or wall thickening. Normal appendix. No diverticulosis. Moderate amount of colonic stool. Lymph nodes: No abdominal or pelvic lymphadenopathy. Mesentery/Peritoneum: No ascites or mass. Retroperitoneum: No mass. Vasculature: The celiac axis and SMA are patent. The portal vein and branches, splenic vein, SMV, and hepatic veins are patent. No abdominal aortic or iliac artery aneurysm. Pelvis: No mass, ascites or fluid collection. Bones/Soft Tissues: No acute osseous findings. Lower thorax: Unremarkable. [facility] RADIOLOGY Fahad Akbar M D - 02/13/2022 EXAMINATION: CT ABDOMEN AND PELVIS WITHOUT AND WITH IV CONTRAST, INCLUDING EXCRETORY PHASE IMAGING (CT UROGRAM) CLINICAL HISTORY: Nephrolithiasis and dysuria.. . TECHNIQUE: CT urogram protocol including unenhanced, renal parenchymal phase and excretory phase renal imaging was obtained following IV contrast. No oral contrast was given. CONTRAST: IV: 100 ml Isovue 300 Oral: None. All CT scans at this facility use dose modulation, iterative reconstruction, and/or weight based dosing when appropriate to reduce radiation dose to as low as reasonably achievable. COMPARISON: CT abdomen and pelvis 01/04/2022 RESULT: Kidneys and urinary tract: Right: Multiple punctate nonobstructing renal calculi similar in the interpolar region and lower pole to prior. No hydronephrosis. No renal masses. Limited visualization of the distal ureter otherwise, the imaged opacified calices, renal pelvis and ureter are normal without dilation, filling defect, or stricture. Left: 2 mm nonobstructing left upper pole calculus similar to prior. No renal masses. No hydronephrosis. Limited visualization of the distal ureter otherwise, the imaged opacified calices, renal pelvis and ureter are normal without dilation, filling defect, or stricture. Bladder: No filling defect, calculus, focal or diffuse wall thickening. Abdomen and Pelvis: Liver: No mass or lesion. Biliary: No bile duct dilation. Gallbladder is unremarkable. Pancreas: No mass or duct dilation. Spleen: No mass. No splenomegaly. Adrenals: No mass. GI tract: No dilation or wall thickening. Normal appendix. No diverticulosis. Moderate amount of colonic stool. Lymph nodes: No abdominal or pelvic lymphadenopathy. Mesentery/Peritoneum: No ascites or mass. Retroperitoneum: No mass. Vasculature: The celiac axis and SMA are patent. The portal vein and branches, splenic vein, SMV, and hepatic veins are patent. No abdominal aortic or iliac artery aneurysm. Pelvis: No mass, ascites or fluid collection. Bones/Soft Tissues: No acute osseous findings. Lower thorax: Unremarkable. IMPRESSION: Stable bilateral nonobstructing calculi similar to the prior CT. No hydronephrosis. Limited visualization of the distal ureters, otherwise no suspicious filling defects within the collecting system. [employer] Phone: Radiology Study observation (narrative) [employer] Phone: CT UrogramOrdered By: Jesika Akbar on 02-13-2022 [employer] Phone: XR ABDOMEN (KUB) (SINGLE AP VIEW)on 02-03-2022 Impression: Negative abdomen. [facility] RADIOLOG[facility] Patient 1 : 1985 Age: 36 years Gender: Female Order Date: 02/03/2022 9:29 AM Exam: XR ABDOMEN (KUB) (SINGLE AP VIEW) Number of Images: views Indication: N20.0 Kidney stone ICD10 Comparison: None. Findings: The gas pattern is nonspecific in distribution. No organomegaly or soft tissue mass. No abnormal calcification seen. There are some phleboliths in the right side of the pelvic cavity. There is significant amount of stool in the transverse colon. [facility] RADIOLOG[facility] Renee Li MD - 02/03/2022 Patient : 1985 Age: 36 years Gender: Female Order Date: 02/03/2022 9:29 AM Exam: XR ABDOMEN (KUB) (SINGLE AP VIEW) Number of Images: views Indication: N20.0 Kidney stone ICD10 Comparison: None. Findings: The gas pattern is nonspecific in distribution. No organomegaly or soft tissue mass. No abnormal calcification seen. There are some phleboliths in the right side of the pelvic cavity. There is significant amount of stool in the transverse colon. IMPRESSION: Impression: Negative abdomen. [employer] Phone: Radiology Study observation (narrative) [employer] Phone: XR ABDOMEN (KUB) (SINGLE AP VIEW)Ordered By: Renee Li on 02-03-2022 [employer] Phone: CBC With Platelet No Differe ntialon 12-31-2021 Erythrocyte distribution width (RBC) [Ratio] 14.1 % Normal 11.5-14.5 [facility] Comment on above: Performed By: #### C BCND #### [facility] [address] [place] [address] Hematocrit (Bld) [Volume fraction] 39.1 % Normal 37.0-47.0 [facility] Comment on above: Performed By: #### C BCND #### [facility] [address] [place] [address] Hemoglobin (Bld) [Mass/Vol] 13.1 g/dL Normal 12.0-16.0 [facility] Comment on above: Performed By: #### C BCND #### [facility] [address] [place] [address] MCH (RBC) [Entitic mass] 31.6 pg Critically high 27.0-31.3 [facility] Comment on above: Performed By: #### C BCND #### [facility] [address] [place] [address] MCHC 33.5 % Normal 33.0-37.0 [facility] Comment on above: Performed By: #### C BCND #### [facility] [address] [place] [address] MCV (RBC) [Entitic vol] 94.5 fL Normal 82.0-100.0 [facility] Comment on above: Performed By: #### C BCND #### [facility] [address] [place] [address] Platelets (Bld) [#/Vol] 527 10*3/uL Critically high 130-400 [facility] Comment on above: Performed By: #### C BCND #### [facility] [address] [place] [address] RBC (Bld) [#/Vol] 4.14 10*6/uL Low 4.20-5.40 [facility] Comment on above: Performed By: #### C BCND #### [facility] [address] [place] [address] WBC (Bld) [#/Vol] 7.2 10*3/uL Normal 4.8-10.8 [facility] Comment on above: Performed By: #### C BCND #### [facility] [address] [place] [address] Lipid Panelon 12-31-2021 Cholesterol [Mass/Vol] 213 mg/dL Critically high 0-199 [facility] Comment on above: Result Comment: ATP III Cholesterol Classification is Borderline High. Performed By: #### L IPID #### [facility] [address] [facility] [address] Cholesterol in HDL [Mass/Vol] 56 mg/dL Normal 40-59 [facility] Comment on above: Result Comment: ATP III HDL Cholesterol Classification is Desirable. Expected Values: Males: >55 = No Risk 35-55 = Moderate Risk <35 = High Risk Females: >65 = No Risk 45-65 = Moderate Risk <45 = High Risk NCEP Guidelines: Third Report March 2001 >59 = negative risk factor for CHD <40 = major risk factor for CHD Performed By: #### L IPID #### [facility] [address] [facility] [address] Cholesterol in LDL [Mass/Vol] 143 mg/dL Critically high 0-129 [facility] Comment on above: Result Comment: ATT III Classification is Borderline High. Performed By: #### L IPID #### [facility] [address] [facility] [address] Triglyceride [Mass/Vol] 69 mg/dL Normal 0-150 [facility] Comment on above: Result Comment: ATP III Triglycerides Classification is Normal. Performed By: #### L IPID #### [facility] [address] [facility] [address] CBC Auto Differentialon Basophils (Bld) [#/Vol] 0.1 10*3/uL 0.0 - 0.2 K/uL [facility] [employer] Basophils/100 WBC (Bld) 0.3 % [facility] Eosinophils (Bld) [#/Vol] 0.1 10*3/uL 0.0 - 0.7 K/uL [facility] [employer] Eosinophils/100 WBC (Bld) 0.3 % [facility] Hematocrit (Bld) [Volume fraction] 36.1 % Low 37.0 - 47.0 % [facility] Hemoglobin.gastroi ntestinal spec 1 Ql (Stl) 12.1 g/dL 12.0 - 16.0 g/dL [facility] Interpretation and review of laboratory results Abnormal [facility] Lymphocytes (Bld) [#/Vol] 1.7 10*3/uL 1.0 - 4.8 K/uL [facility] Lymphocytes/100 WBC (Bld) 8.2 % [facility] MCH (RBC) [Entitic mass] 30.4 pg 27.0 - 31.3 pg [facility] MCHC (RBC) [Mass/Vol] 33.4 % 33.0 - 37.0 % [facility] MCV (RBC) [Entitic vol] 90.9 fL 82.0 - 100.0 fL [facility] Monocytes (Bld) [#/Vol] 1.4 10*3/uL High 0.2 - 0.8 K/uL [facility] Monocytes/100 WBC (Bld) 6.9 % [facility] Neutrophils Absolute 17.4 K/uL High 1.4 - 6.5 K/uL [facility] Neutrophils/100 WBC (Bld) 84.3 % [facility] Platelet distribution width (Bld) [Ratio] 16.8 % High 11.5 - 14.5 % [facility] Platelets (Bld) [#/Vol] 470 10*3/uL High 130 - 400 K/uL [facility] RBC (Bld) [#/Vol] 3.98 10*6/uL Low [facility] WBC (Bld) [#/Vol] 20.6 10*3/uL High 4.8 - 10.8 K/uL [facility] Comprehensive Metabolic Pane madyson 11-11-2021 Albumin [Mass/Vol] 4.7 g/dL High 3.5 - 4.6 g/dL [facility] ALP (Bld) [Catalytic activity/Vol] 93 U/L 40 - 130 U/L [facility] ALT [Catalytic activity/Vol] U/L 0 - 33 U/L [facility] Anion gap [Moles/Vol] 11 mmol/L [facility] AST [Catalytic activity/Vol] 12 U/L 0 - 35 U/L [facility] Bilirubin [Mass/Vol] 0.6 mg/dL 0.2 - 0.7 mg/dL [facility] Calcium [Mass/Vol] 9.3 mg/dL 8.5 - 9.9 mg/dL [facility] Chloride [Moles/Vol] 100 mmol/L [facility] CO2 [Moles/Vol] 26 [facility] Creatinine [Mass/Vol] 0.67 mg/dL 0.50 - 0.90 mg/dL [facility] Free PSA/Total PSA [Mass fraction] 8.1 g/dL High 6.3 - 8.0 g/dL [facility] GFR >60.0 >60 [facility] Comment on above: >60 mL/min/1.73m2 EG FR, calc. for ages 18 and older using the MDRD formula (not corrected for weight), is valid for stable renal function. GFR Non- >60.0 >60 [facility] Comment on above: >60 mL/min/1.73m2 EG FR, calc. for ages 18 and older using the MDRD formula (not corrected for weight), is valid for stable renal function. Globulin (S) [Mass/Vol] 3.4 g/dL 2.3 - 3.5 g/dL [facility] Glucose [Mass/Vol] 106 mg/dL High 70 - 99 mg/dL [facility] Interpretation and review of laboratory results Abnormal [facility] Potassium [Moles/Vol] 3.7 mmol/L [facility] Sodium [Moles/Vol] 137 mmol/L [facility] Urea nitrogen (BldV) [Mass/Vol] 9 mg/dL 6 - 20 mg/dL [facility] ED NOTEon 11-11-2021 ED NOTE HNO ID: [id number] Author: Jessee Concepcion RN Service: ? Author Type: Registered Nurse Type: ED Notes Filed: 11/11/2021 3:46 PM Note Text: Pt to ED for right middle finger redness, pt states no known injury, woke up with pain in hand and finger and has progressively worsened. Pt afebrile denies chills. Normal [facility] Lactic Acid, Plasmaon 2021 Lactate [Moles/Vol] 0.7 mmol/L 0.5 - 2.2 mmol/L [facility] XR HAND 3V PA/LAT/OBL RTon 0 11-11-2021 XR HAND 3V PA/LAT/OBL RT * * *Final Report* * * DATE OF EXAM: Nov 11 2021 4:12PM VHX [id number] - XR HAND 3V PA/LAT/OBL RT / PROCEDURE REASON: Bone pain, hand * * * * Physician Interpretation * * * * EXAMINATION: XR HAND 3V PA/LAT/OBL RT Clinical history: Bone pain, hand RESULT: There is no fracture. Alignment is normal. There is swelling of the third digit. IMPRESSION: Soft tissue swelling of the third digit Critical Care Transport Nurse: SUNDEEP Transcribe Date/Time: Nov 11 2021 4:14P Dictated by : DAWN BRITO MD This examination was interpreted and the report reviewed and electronically signed by: DAWN BRITO MD on Nov 11 2021 4:14PM EST [id number] Normal [facility] Vital Signs Date Time Vital Sign Value Performing Clinician Facility 03-04-2025 18:33-0400 Body height 175.26 cm [facility] 03-04-2025 18:33-0400 Body mass index (BMI) [Ratio] 21.1 kg/m2 [facility] 03-04-2025 18:33-0400 Body temperature 98.5 [degF] [facility] 03-04-2025 18:33-0400 Body weight 64.86 kg [facility] 03-04-2025 18:33-0400 Diastolic blood pressure 87 mm[Hg] [facility] 03-04-2025 18:33-0400 Heart rate 103 /min [facility] 03-04-2025 18:33-0400 Respiratory rate 18 /min [facility] 03-04-2025 18:33-0400 SaO2% (BldA) [Mass fraction] 98 % [facility] 03-04-2025 18:33-0400 Systolic blood pressure 127 mm[Hg] [facility] 01-13-2025 18:12-0400 Body height 175.3 cm Denilson Cervantes MD Work Phone: [facility] 01-13-2025 18:12-0400 Body mass index (BMI) [Ratio] 20.67 kg/m2 Denilson Cervantes MD Work Phone: [facility] 01-13-2025 18:12-0400 Body weight 63.5 kg Denilson Cervantes MD Work Phone: [facility] 01-13-2025 18:12-0400 Diastolic blood pressure 95 mm[Hg] Denilson Cervantes MD Work Phone: [facility] 01-13-2025 18:12-0400 Heart rate 106 /min Denilson Cervantes MD Work Phone: [facility] 01-13-2025 18:12-0400 Respiratory rate 16 /min Denilson Cervantes MD Work Phone: [facility] 01-13-2025 18:12-0400 SaO2% (BldA) [Mass fraction] 96 % Denilson Cervantes MD Work Phone: [facility] 01-13-2025 18:12-0400 Systolic blood pressure 135 mm[Hg] Denilson Cervantes MD Work Phone: [facility] 01-13-2025 18:00-0400 Body temperature 98.29 [degF] Denilson Cervantes MD Work Phone: [facility] 12-20-2024 17:03-0500 Diastolic blood pressure 84 mm[Hg] Vandana Jauregui MD Work Phone: [email or web address] 12-20-2024 17:03-0500 Heart rate 106 /min Vandana Jauregui MD Work Phone: [facility] 12-20-2024 17:03-0500 Respiratory rate 11 /min Vandana Jauregui MD Work Phone: [email or web address] 12-20-2024 17:03-0500 SaO2% (BldA) [Mass fraction] 100 % Vandana Jauregui MD Work Phone: [facility] 12-20-2024 17:03-0500 Systolic blood pressure 127 mm[Hg] Vandana Jauregui MD Work Phone: [facility] 12-20-2024 14:55-0500 Body mass index (BMI) [Ratio] 20.67 kg/m2 Vandana Jauregui MD Work Phone: [facility] 12-20-2024 14:55-0500 Body temperature 98.71 [degF] Vandana Jauregui MD Work Phone: [facility] 12-20-2024 14:55-0500 Body weight 63.5 kg Vandana Jauregui MD Work Phone: [facility] 09-18-2024 13:20-0500 Body height 175.3 cm David Tao [employer] Work Phone: [facility] 09-18-2024 13:20-0500 Body mass index (BMI) [Ratio] 17.72 kg/m2 Davidvasile Thomson [employer] Work Phone: [email or web address] 09-18-2024 13:20-0500 Body temperature 98.91 [degF] Davidadriana Thomson [employer] Work Phone: [facility] 09-18-2024 13:20-0500 Body weight 54.43 kg Davidadriana Thomson [employer] Work Phone: [email or web address] 09-18-2024 13:20-0500 Diastolic blood pressure 91 mm[Hg] Davidadriana Thomson [employer] Work Phone: [facility] 09-18-2024 13:20-0500 Heart rate 98 /min Davidadriana Thomson [employer] Work Phone: [facility] 09-18-2024 13:20-0500 Respiratory rate 19 /min David Thomson [employer] Work Phone: [facility] 09-18-2024 13:20-0500 SaO2% (BldA) [Mass fraction] 98 % David Thomson [employer] Work Phone: [facility] 09-18-2024 13:20-0500 Systolic blood pressure 133 mm[Hg] Davidvasile Thomson [employer] Work Phone: [facility] 07-22-2024 04:55-0400 Diastolic blood pressure 80 mm[Hg] Wilmar Coker MD Work Phone: [facility] 07-22-2024 04:55-0400 Heart rate 75 /min Wilmar Coker MD Work Phone: [facility] 07-22-2024 04:55-0400 Respiratory rate 16 /min Wilmar Coker MD Work Phone: [facility] 07-22-2024 04:55-0400 SaO2% (BldA) [Mass fraction] 100 % Wilmar Coker MD Work Phone: [facility] 07-22-2024 04:55-0400 Systolic blood pressure 122 mm[Hg] Wilmar Coker MD Work Phone: [facility] 07-22-2024 01:29-0400 Body temperature Wilmar Coker MD Work Phone: [facility] Comment on above: NOTE: Patient Results are Not Corrected for Temperature 07-22-2024 01:06-0400 Body temperature [facility] Comment on above: Result Comment: NOTE: Patient Results ar e Not Corrected for Temperature Performed By: #### 2 [id number] #### MATEUS CHENG ([id number]) [facility] [address] [place] [address] 07-22-2024 00:03-0400 Body height 175.3 cm Wilmar Coker MD Work Phone: [facility] 07-22-2024 00:03-0400 Body mass index (BMI) [Ratio] 18.02 kg/m2 Wilmar Coker MD Work Phone: [facility] 07-22-2024 00:03-0400 Body temperature 98.2 [degF] Wilmar Coker MD Work Phone: [facility] 07-22-2024 00:03-0400 Body weight 55.34 kg Wilmar Coker MD Work Phone: [facility] 09-07-2022 14:42-0400 Body height 175.3 cm Tray Watkins MD [facility] 09-07-2022 14:42-0400 Body mass index (BMI) [Ratio] 17.13 kg/m2 Tray Watkins MD Work Phone[facility] [employer] 09-07-2022 14:42-0400 Body temperature 98.49 [degF] Tray Watkins MD Work Phone: [facility] [employer] 09-07-2022 14:42-0400 Body weight 52.62 kg Tray Watkins MD Work Phone: [facility] [employer] 09-07-2022 14:42-0400 Diastolic blood pressure 104 mm[Hg] Tray Watkins MD Work Phone: [facility] [employer] 09-07-2022 14:42-0400 Heart rate 113 /min Tray Watkins MD Work Phone: [facility] [employer] 09-07-2022 14:42-0400 Respiratory rate 16 /min Tray Watkins MD Work Phone: [facility] [employer] 09-07-2022 14:42-0400 SaO2% (BldA) [Mass fraction] 98 % Tray Watkins MD Work Phone: [employer] 09-07-2022 14:42-0400 Systolic blood pressure 157 mm[Hg] Tray Watkins MD Work Phone: [facility] [employer] 08-10-2022 14:04-0400 Body weight 52.89 kg Tk Saira PA-C Work Phone: [facility] 06-16-2022 12:51-0400 Diastolic blood pressure 99 mm[Hg] Didier Eldridge MD Work Phone: [employer] 06-16-2022 12:51-0400 Heart rate 98 /min Didier Eldridge MD Work Phone: [employer] 06-16-2022 12:51-0400 Respiratory rate 18 /min Didier Eldridge MD Work Phone: [employer] 06-16-2022 12:51-0400 SaO2% (BldA) [Mass fraction] 100 % Didier Eldridge MD Work Phone: [employer] 06-16-2022 12:51-0400 Systolic blood pressure 138 mm[Hg] Didier Eldridge MD Work Phone: [employer] 06-16-2022 11:19-0400 Body height 175.3 cm Didier Eldridge MD Work Phone: [employer] 06-16-2022 11:19-0400 Body mass index (BMI) [Ratio] 17.13 kg/m2 Didier Eldridge MD Work Phone: [employer] 06-16-2022 11:19-0400 Body temperature 97.7 [degF] Didier Eldridge MD Work Phone: [employer] 06-16-2022 11:19-0400 Body weight 52.62 kg Didier Eldridge MD Work Phone: [facility]IT[facility] 06-13-2022 19:46-0400 Body height 175.26 cm David Thomson Work Phone: [facility] Work Phone: 06-13-2022 19:46-0400 Body mass index (BMI) [Ratio] 24.37 kg/m2 David Thomson Work Phone: [facility] Work Phone: 06-13-2022 19:46-0400 Body surface area Derived from formula 1.9 m2 David Thomson Work Phone: [facility] Work Phone: 06-13-2022 19:46-0400 Body weight 74.84 kg David Thomson Work Phone: [facility] Work Phone: 06-13-2022 19:46-0400 Diastolic blood pressure 88 mm[Hg] David Thomson Work Phone: [facility] Work Phone: 06-13-2022 19:46-0400 Respiratory rate 16 /min David Thomson Work Phone: [facility] Work Phone: 06-13-2022 19:46-0400 Systolic blood pressure 140 mm[Hg] David Thomson Work Phone: [facility] Work Phone: 06-07-2022 15:01-0400 Body temperature 98.49 [degF] Davidvasile Thomson BICYCLE I ASSEMBLER - [employer] Work Phone: [facility] 06-07-2022 15:01-0400 Diastolic blood pressure 98 mm[Hg] David Tao BICY[employer] I ASSEM[employer]ER - [employer] Work Phone: [facility] [employer] 06-07-2022 15:01-0400 Heart rate 106 /min David Thomson APRN - [employer] Work Phone: [facility] [employer] 06-07-2022 15:01-0400 Respiratory rate 18 /min David Thomson APRN - [employer] Work Phone: [facility] [employer] 06-07-2022 15:01-0400 SaO2% (BldA) [Mass fraction] 99 % David Thomson APRN - [employer] Work Phone: [facility] [employer] 06-07-2022 15:01-0400 Systolic blood pressure 151 mm[Hg] David Thomson APRN - [employer] Work Phone: [facility] [employer] 06-03-2022 20:57-0400 Diastolic blood pressure 96 mm[Hg] David Thomson APRN - [employer] Work Phone: [facility] [employer] 06-03-2022 20:57-0400 Systolic blood pressure 156 mm[Hg] David Thomson APRN - [employer] Work Phone: [facility] [employer] 06-03-2022 20:56-0400 Body height 175.3 cm David Thomson APRN - [employer] Work Phone: [facility] [employer] 06-03-2022 20:56-0400 Body mass index (BMI) [Ratio] 17.72 kg/m2 David Thomson APRN - [employer] Work Phone: [facility] [employer] 06-03-2022 20:56-0400 Body temperature 98.6 [degF] David Thomson APRN - [employer] Work Phone: [facility] [employer] 06-03-2022 20:56-0400 Body weight 54.43 kg David Thomson APRN - [employer] Work Phone: [facility] [employer] 06-03-2022 20:56-0400 Heart rate 102 /min David Thomson APRN - [employer] T[employer]ER Work Phone: [facility] 06-03-2022 20:56-0400 Respiratory rate 16 /min David Thomson APRN - [employer] T[employer]ER Work Phone: [facility] 06-03-2022 20:56-0400 SaO2% (BldA) [Mass fraction] 99 % David Thomson APRN - [employer]ING [employer] T[employer]ER Work Phone: [facility] 03-31-2022 11:25-0400 Diastolic blood pressure 99 mm[Hg] Didier Eldridge MD Work Phone: [facility] 03-31-2022 11:25-0400 Heart rate 88 /min Didier Eldridge MD Work Phone: [facility] 03-31-2022 11:25-0400 Respiratory rate 18 /min Didier Eldridge MD Work Phone: [facility]ITAL[facility] 03-31-2022 11:25-0400 SaO2% (BldA) [Mass fraction] 100 % Didier Eldridge MD Work Phone: [facility] [employer] 03-31-2022 11:25-0400 Systolic blood pressure 136 mm[Hg] Didier Eldridge MD Work Phone: [facility] 03-31-2022 10:34-0400 Body height 175.3 cm Didier Eldridge MD Work Phone: [facility] [employer] 03-31-2022 10:34-0400 Body mass index (BMI) [Ratio] 16.83 kg/m2 Didier Eldridge MD Work Phone: [facility] [employer] 03-31-2022 10:34-0400 Body temperature 97.9 [degF] Didier Eldridge MD Work Phone: [facility] [employer] 03-31-2022 10:34-0400 Body weight 51.71 kg Didier Eldridge MD Work Phone: [facility] 11-11-2021 20:06-0500 Diastolic blood pressure 81 mm[Hg] [facility] 11-11-2021 20:06-0500 Heart rate 96 /min [facility] 11-11-2021 20:06-0500 Respiratory rate 16 /min [facility] 11-11-2021 20:06-0500 SaO2% (BldA) [Mass fraction] 100 % [facility] 11-11-2021 20:06-0500 Systolic blood pressure 124 mm[Hg] [facility] 11-11-2021 17:52-0500 Body height 175.3 cm [facility] 11-11-2021 17:52-0500 Body mass index (BMI) [Ratio] 15.8 kg/m2 [facility] 11-11-2021 17:52-0500 Body temperature 98.1 [degF] [facility] 11-11-2021 17:52-0500 Body weight 48.53 kg [facility] Encounters Encounter Date Encounter Type Care Provider Facility Start: 03-23-2025 ambulatory SELF SELF [facility] Start: 03-04-2025 End: 03-04-2025 ambulatory Kan Post [facility] Work Phone: Start: 03-04-2025 End: 03-04-2025 Departed Referred Kan Post MD Work Phone: [facility] Start: 03-04-2025 End: 03-04-2025 ambulatory [facility] Work Phone: Start: 03-04-2025 End: 03-04-2025 Patient encounter procedure [facility] Work Phone: Start: 02-23-2025 ambulatory [facility] Start: 01-26-2025 ambulatory [facility] Start: 01-13-2025 End: 01-13-2025 Emergency department patient visit Denilson Cervantes MD Work Phone: [facility] Emergency Department Comment on above: Atypical chest pain (Primary Dx) Start: 12-20-2024 End: 12-20-2024 Emergency department patient visit Vandana Jauregui MD Work Phone: [facility] Comment on above: Radiculopathy, unspe cified spinal region (Primary Dx) Start: 12-18-2024 ambulatory SELF SELF [facility] Start: 12-04-2024 ambulatory SELF SELF [facility] Start: 11-28-2024 ambulatory SELF SELF [facility] Start: 11-21-2024 [facility] Start: 11-14-2024 ambulatory SELF SELF [facility] Start: 11-03-2024 End: 11-03-2024 ambulatory [facility] Start: 11-03-2024 End: 11-03-2024 Subsequent hospital visit by physician David Thomson B[employer]ER - [employer] Work Phone: [facility] Start: 10-17-2024 End: 10-17-2024 ambulatory [facility] Start: 10-17-2024 End: 10-17-2024 Subsequent hospital visit by physician David Thomson B[employer] I [employer]SEM[employer]ER - [employer] Work Phone: [facility] Start: 09-18-2024 End: 09-18-2024 Emergency department patient visit [facility] ED Comment on above: Acute pain of left k nee (Primary Dx); Abrasion, left knee, initial encounter Start: 07-21-2024 End: 07-22-2024 Emergency department patient visit Wilmar Coker MD Work Phone: [facility] Comment on above: Acute nonintractable headache, unspecified headache type (Primary Dx); Chest pain, unspecified type Start: 08-22-2023 End: 08-22-2023 Emergency department patient visit DAVID THOMSON Facility:[facility] Start: 05-02-2023 Telephone encounter Darrin Prado DO Work Phone: Neurology Comment on above: Patient Update Start: 05-01-2023 End: 05-01-2023 ambulatory Hal Prado DO Work Phone: Neurology Comment on above: Concussion with loss of consciousness, subsequent encounter (Primary Dx); Memory loss Start: 05-01-2023 End: 05-01-2023 Telemedicine consultation with patient Hal Prado DO Work Phone: [facility] Start: 09-07-2022 End: 09-07-2022 Emergency department patient visit Tray Watkins MD Work Phone: [facility] Comment on above: Foreign body in vagi na, initial encounter (Primary Dx) Start: 09-01-2022 End: 09-01-2022 ambulatory AMY MACARIO Facility:[facility] Start: 08-10-2022 End: 08-10-2022 Patient encounter procedure Tk Dominguez PA-C Work Phone: Orthopedics Comment on above: Closed nondisplaced avulsion fracture of left talus, initial encounter (Primary Dx); Sprain of anterior talofibular ligament of left ankle, initial encounter; Sprain of posterior talofibular ligament of left ankle, initial encounter; Sprain of deltoid ligament of left ankle, initial encounter Start: 08-03-2022 End: 08-03-2022 Emergency department patient visit DANY RED Facility:[facility] Start: 06-16-2022 End: 06-16-2022 Subsequent hospital visit by physician Didier Eldridge MD Work Phone: [facility] [place] Start: 06-13-2022 Tobacco use cessatio n intermediate 3-10 minutes David Thomson Work Phone: [facility] Work Phone: Start: 06-07-2022 End: 06-07-2022 Emergency department patient visit David Thomson B[employer]SEM[employer] - [employer] Work Phone: [facility] Comment on above: Urticaria (Primary D x); Rash and other nonspecific skin eruption Start: 06-03-2022 End: 06-03-2022 Emergency department patient visit David Thomson B[employer] I ASSEMBLER - [employer] Work Phone: [facility] Start: 03-31-2022 End: 03-31-2022 Subsequent hospital visit by physician Didier Eldridge MD Work Phone: [facility] [place] Comment on above: Melena; Constipation, unspecified constipation type Start: 03-16-2022 End: 03-18-2022 Subsequent hospital visit by physician Anant Mri Room 1 [facility] MRI Comment on above: Cervical radiculopat hy; Cervicalgia; Left arm weakness Start: 02-13-2022 End: 02-15-2022 Subsequent hospital visit by physician Anant Ct Room 1 [facility] CT Scan Comment on above: Abnormal CT scan, ki dney Start: 02-03-2022 End: 02-05-2022 Subsequent hospital visit by physician Ny Xray Room 7 [facility] Radiology Comment on above: Kidney stone Start: 11-11-2021 End: 11-11-2021 Emergency department patient visit DANY RED Facility:[facility] Start: 11-11-2021 End: 11-11-2021 Emergency department patient visit [facility] Comment on above: Cellulitis of finger of right hand (Primary Dx) Procedures Date Procedure Procedure Detail Performing Clinician Start: 01-13-2025 Basic metabolic panel calcium total Yoseph Cervantes MD Work Phone: Start: 01-13-2025 Ecg routine ecg w/least 12 lds w/i&r Denilson Cervantes MD Work Phone: Start: 12-20-2024 Comprehensive metabolic panel Vandana Lopes dd, MD Work Phone: Start: 12-20-2024 Ecg routine ecg w/least 12 lds w/i&r Vandana Jauregui MD Work Phone: Start: 11-03-2024 Comprehensive metabolic panel Allen hunt B[employer] I ASSEMBLER - [employer] Work Phone: Start: 11-03-2024 Hepatitis b surf antibody hbsab Allen hayes [employer] ASSEMBLER - [employer] Work Phone: Start: 11-03-2024 T. PALLIDUM AB Allen Larry B[employer]CLE I ASSEMBLER - [employer]ER Work Phone: Start: 10-17-2024 Iaadiadoo influenza Allen Larry B[employer] I ASSEMBLER - [employer] Work Phone: Start: 09-18-2024 Radiologic examination knee 1/2 views Maddie Buenrostro COLOR ROOM ATTENDANT-C Work Phone: Start: 07-22-2024 Assay of lactate Wilmar Coker MD Work Phone: Start: 07-22-2024 Ct angio abd&plvis cntrst mtrl w/wo cntrst img Wilmar Coker MD Work Phone: Start: 07-22-2024 Urinalysis microscopic panel - Urine Qualitative by Automated Wilmar Coker MD Work Phone: Start: 07-22-2024 Urnls dip stick/tablet reagent auto microscopy Wilmar Coker MD Work Phone: Start: 07-22-2024 Radiologic exam chest single view Viola Coker MD Work Phone: Start: 07-22-2024 Chloride bld Wilmar Coker MD Work Phone: Start: 07-22-2024 Troponin I.cardiac panel - Serum or Plasma by High sensitivity method Wilmar Coker MD Work Phone: Start: 06-07-2022 Comprehensive metabolic panel Tray stephenson PA-C Work Phone: Start: 03-31-2022 Urine test visual color cmprsn meths Didier Eldridge MD Work Phone: Start: 03-31-2022 Colonoscopy Didier Eldridge MD Work Phone: Start: 03-31-2022 Esophagogastroduodenoscopy Didier daly MD Work Phone: Start: 03-16-2022 Mri spinal canal cervical w/o contrast matrl David Thomson B[employer]SEM[employer]ER - [employer] Work Phone: Start: 02-13-2022 Ct abdomen & pelvis w/o contrst 1/> body re Catracho Villanueva MD Work Phone: Start: 02-03-2022 Radiologic exam abdomen 1 view Catracho Richardson MD Work Phone: Start: 11-11-2021 Comprehensive metabolic panel Berta HUDSON Work Phone: Plan of Treatment Date Care Activity Detail Author Start: 08-22-2033 DTaP/Tdap/Td vaccine (2 - Td or Tdap) DTaP/Tdap/Td vaccine (2 - Td or Tdap) [facility] Start: 08-22-2033 DTaP/Tdap/Td Vaccines (2 - Td or Tdap) DTaP/Tdap/Td Vaccines (2 - Td or Tdap) [facility] Start: 2033 Zoster Vaccines (1 of 2) Zoster Vaccines (1 of 2) [facility] Start: 12-31-2026 Lipid panel Lipids [facility] [employer] Start: 03-04-2025 Urine culture [facility] Start: 03-04-2025 Bacteria identified in Urine by Culture Urine Culture [facility] Start: 07-06-2024 COVID-19 Vaccine ( season) COVID-19 Vaccine ( season) [facility] Start: 07-06-2024 COVID-19 Vaccine ( season) COVID-19 Vaccine ( season) [facility] Start: 07-06-2024 Influenza vaccination Influenza Vaccine (#1) [facility] Start: 06-05-2024 Influenza vaccination Flu vaccine (#1) [facility] Start: 11-14-2023 Depression Monitoring Depression Monitoring [facility] [employer] Start: 2023 Screening for malignant neoplasm of breast [facility] [place] Start: 07-06-2023 Influenza vaccination INFLUENZA (Season Ended) [facility] Start: 03-02-2023 Depression Monitoring Depression Monitoring [facility] Start: 11-05-2022 DEPRESSION ASSESSMENT DEPRESSION ASSESSMENT [facility] Start: 10-05-2022 End: 10-05-2022 Patient encounter procedure 10/05/2022 Office Visit Family Medicine David Thomson, B[employer] I ASSEMBLER - [employer] T[employer] [address] [place] [address] [facility] Start: 09-01-2022 End: 09-01-2022 Patient encounter procedure 09/01/2022 Office Visit Family Medicine David Thomson, B[employer] I ASSEMBLER - [employer] [address] [place] [address] [facility] Start: 07-06-2022 Influenza vaccination [facility] Start: 06-19-2022 End: 06-19-2022 Patient encounter procedure 06/19/2022 Office Visit Gastroenterology Dulce Mackay, B[employer] I ASSEMBLER - [employer]ER [address] [place] [address] [facility] Start: 06-16-2022 End: 06-16-2022 Admission to same day surgery center 06/16/2022 Surgery Endoscopy Didier Eldridge MD [address] [place] [address] COLONOSCOPY DIAGNOSTIC [facility] [place] Comment on above: COLONOSCOPY DIAGNOSTIC Start: 06-16-2022 Subsequent hospital visit by physician 06/16/2022 Hospital Encounter Endoscopy Didier Eldridge MD [address] [place] [address] [facility] [place] Start: 06-16-2022 End: 06-16-2022 Colonoscopy flx dx w/collj spec when pfrmd [facility] Start: 06-05-2022 Influenza vaccination Flu vaccine (#1) [facility] Start: 05-12-2022 Depression Monitoring Depression Monitoring [facility] Start: 05-12-2022 Depression Screen Depression Screen [facility] Start: 04-13-2022 End: 04-13-2022 Patient encounter procedure 04/13/2022 Office Visit Gastroenterology Dulce Mackay, B[employer]ER - [employer] [address] [place] [address] [facility] Gastroenter[facility] Start: 04-11-2022 End: 04-11-2022 Patient encounter procedure 04/11/2022 Initial consult Pain Management Kati Perez [place] [address] [facility] [address] [id number] [facility] Start: 03-31-2022 End: 03-31-2022 Admission to same day surgery center 03/31/2022 Surgery Endoscopy Didier Eldridge MD [address] [place] [address] EGD ESOPHAGOGASTRODUODENOSCOPY [facility] [place] Comment on above: EGD ESOPHAGOGASTRODUODENOSCOPY Start: 03-31-2022 Subsequent hospital visit by physician 03/31/2022 Hospital Encounter Endoscopy Didier Eldridge MD [address] [place] [address] [facility] [place] Start: 03-31-2022 End: 03-31-2022 Colonoscopy flx dx w/collj spec when pfrmd [facility] Start: 03-31-2022 End: 03-31-2022 Esophagogastroduodenoscopy transoral diagnostic [facility]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 tablet Take 1 tablet by mouth every 6 hours as needed for pain for up to 3 days. for pain. acetaminophen (TYLENOL EXTRA STRENGTH) 500 mg tablet Take 2 tablets by mouth every 6 hours as needed for pain. ibuprofen (MOTRIN) 600 mg tablet Take 1 tablet by mouth every 6 hours as needed (for pain.). aspirin, enteric coated (ECOTRIN LOW STRENGTH) 81 mg EC tablet Take 1 tablet by mouth once daily. ergocalciferol 50,000 unit capsule (VITAMIN D2, DRISDOL) Take 1 capsule by mouth one time a week for 15 doses. Calcium Citrate-Vitamin D3 (CITRACAL+D) 315 mg-6.25 mcg (250 unit) tab Take 1 tablet by mouth twicedaily with meals. No current facility-administered medications for this visit. Detailed instructions were reviewed with the patient and all questions were answered in detail. Patient voiced understanding and compliance with the above plan. We discussed red flags associated with this condition and emergent treatment if they present. I spent a total of 30 minutes on the date of the service which included preparing to see the patient, [id number] patient care, completing clinical documentation, obtaining and/or reviewing separately obtained history, performing a medically appropriate examination, counseling and educating the pat ient/family/caregiver, ordering medications, tests, or procedures, communicating with other HCPs (not separately reported), independently interpreting results (not separately reported), communicatingresults to the patient/family/caregiver and care coordination (not separately reported) Tk Dominguez PA-C Orthopedic Foot and Ankle documented in this encounterBet[facility]09[facility]29-[facility] NoteHNO ID: [id number] Author: RT Elif(R) Service: Radiology Author Type: Technologist Type: Progress Notes Filed: 08/02/2022 11:10 PM Note Text: Radiology Service Progress Note PATIENT NAME: Donaldo Ambrocio DATE OF SERVICE: August 02, 2022 TIME: 11:09 PM PATIENT IDENTITY VERIFICATION COMPLETED USING TWO (2) IDENTIFIERS: Name and Date of confirmed by patient verbally. FALL SCREENING: Has the patient had 2 falls in the last year or 1 fall with injury or currently using an Ambulatory Assistive Device (Walker, Cane, Wheelchair, Crutches, etc.)? Emergency Room Patient: Screened in ED PATIENT GENDER DATA: Female. status: : No status: NO. PATIENT RELEVANT IMPLANT DATA REVIEWED: Not Applicable RADIOLOGY DEPARTMENT: General X-ray: Exam(s) Completed: Lower Extremity X-Ray(s): Ankle, Left PERIPHERAL IV DATA: Not applicable SIGNED BY: RT Elif(R) August 02, 2022 11:09 [place] [id number] NoteHNO ID: [id number] Author: RT Angelia(R) Service: Radiology Author Type: Technologist Type: Progress Notes Filed: 11/11/2021 4:10 PM Note Text: Radiology Service Progress Note PATIENT NAME: Donaldo Ambrocio DATE OF SERVICE: November 11, 2021 TIME: 4:09 PM PATIENT IDENTITY VERIFICATION COMPLETED USING TWO (2) IDENTIFIERS: Name and Date of confirmed by patient verbally and Name and Date of confirmed by identification band. FALL SCREENING: Has the patient had 2 falls in the last year or 1 fall with injury or currently using an Ambulatory Assistive Device (Walker, Cane, Wheelchair, Crutches, etc.)? Emergency Room Patient: Screened in ED PATIENT GENDER DATA: Female. status: : No status: NO. PATIENT RELEVANT IMPLANT DATA REVIEWED: Not Applicable RADIOLOGY DEPARTMENT: General X-ray: Exam(s) Completed: Upper Extremity X-Ray(s): Hand, right PERIPHERAL IV DATA: Not applicable SIGNED BY: Ramon Goodrich RT(R) November 11, 2021 4:09 [facility] HospitalEvaluation note* Diagnosis Cellulitis of finger of right hand- Primary Cellulitis and abscess of finger, unspecified documented in this encounter [employer] Phone: evaluation note* Diagnosis Kidney stone Calculus of kidney documented in this encounter [employer] Phone: evaluation note* Diagnosis Abnormal CT scan, kidney Nonspecific (abnormal) findings on radiological and other examination of genitourinary organs documented in this encounter [employer] Phone: evaluation note* Diagnosis Cervical radiculopathy Brachial neuritis or radiculitis nos Cervicalgia Left arm weakness Other musculoskeletal symptoms referable to limbs documented in this encounter [employer] Phone: evalgoqtip note* Diagnosis Melena Blood in stool Constipation, unspecified constipation type Gastritis without bleeding Unspecified gastritis and gastroduodenitis without mention of hemorrhage documented in this encounter [employer] Phone: evaluation note* Diagnosis Urticaria- Primary Urticaria, unspecified Rash and other nonspecific skin eruption Blood in stool Constipation, unspecified constipation type documented in this encounter [employer] Phone: evalxiyejn note* Diagnosis Constipation Unspecified constipation documented in this encounter [employer] Phone: evaluation note* Diagnosis Closed nondisplaced avulsion fracture of left talus, initial encounter- Primary Sprain of anterior talofibular ligament of left ankle, initial encounter Sprain of posterior talofibular ligament of left ankle, initial encounter Sprain of deltoid ligament of left ankle, initial encounter documented in this encounter [facility] note* Diagnosis Foreign body in vagina, initial encounter- Primary documented in this encounter [facility] [employer] Work Phone: evaluation note* Diagnosis Concussion with loss of consciousness, subsequent encounter- Primary Memory loss documented in this encounter [facility] note* Diagnosis Acute pain of left knee- Primary Abrasion, left knee, initial encounter [facility]* Diagnosis Acute nonintractable headache, unspecified headache type- Primary Chest pain, unspecified type documented in this encounter [facility] Work Phone: Evaluation note* Diagnosis Radiculopathy, unspecified spinal region- Primary [facility]* Diagnosis Atypical chest pain- Primary Other chest pain documented [facility] this [facility] noteNo assessment information available [facility] Work Phone: Hospital Discharge instructions* Attachments The following attachments cannot be sent through Care Everywhere. * Cellulitis (Somali) [facility] [employer] Work Phone: Hospital Discharge instructions* Attachments The following attachments cannot be sent through Care Everywhere. * Gastritis (Somali) * EGD (Upper Endoscopy): Pre-op (Somali) * Coronavirus Disease (COVID-19): General Info (Somali) [facility] Phone: Hospital Discharge instructions* Attachments The following attachments cannot be sent through Care Everywhere. * Urticaria (Somali) * Rash (Somali) [facility] [employer] Phone: Hospital Discharge instructions* Attachments The following attachments cannot be sent through Care Everywhere. * Chest Pain (Somali) [facility] Diagnostic Procedure Only (Routine) - Pending Review Specialty Diagnoses / Procedures Referred By Contac t Referred To Contact XR IMAGING Diagnoses Sprain of anterior talofibular ligament of left ankle, initial encounter Sprain of posterior talofibular ligament of left ankle, initial encounter Sprain of deltoid ligament of left ankle, initial encounter Closed nondisplaced avulsion fracture of left talus, initial encounter Procedures XR ANKLE GENERAL 3V AP/LAT/OBL LEFT RADEX ANKLE COMPLETE MINIMUM 3 VIEWS Tk Dominguez PA-C [address] [place] [address] Xr Imaging Referral ID Status Reason Start Date Expiration Date Visits Requested Visits Authorized [id number] Pending Review Auto-Generat ed Referral 08/10/2022 09/09/2023 1 1 [facility] for referral (narrative)* Diagnostic Procedure Only (Routine) - Pending Review Specialty Diagnoses / Procedures Referred By Contact Referred To Contact [facility] Diagnoses Concussion with loss of consciousness, subsequent encounter Memory loss Procedures HOME SLEEP APNEA TEST (HSAT) SLEEP STD AIRFLOW HRT RATE&O2 [place] [address] [place] [address] [facility] [address] [place] [address] Referral ID Status Reason Start Date Expiration Date Visits Requested Visits Authorized [id number] Pending Review Auto-Generat ed Referral 05/01/2023 04/30/2024 1 1 [facility] for visit Narrative* Auth/Cert Specialty Diagnoses / Procedures Referred By Contaman t Referred To Contact Diagnoses Melena Constipation, unspecified melena, constipation; K92.1, K59.00 Procedures LA ESOPHAGOGASTRODUODENOSCOPY TRANSORAL DIAGNOSTIC LA COLONOSCOPY FLX DX W/COLLJ SPEC WHEN PFRMD LA EGD TRANSORAL BIOPSY SINGLE/MULTIPLE LA EGD BALLOON DILATION ESOPHAGUS <30 MM DIAM LA COLONOSCOPY W/BIOPSY SINGLE/MULTIPLE LA COLSC FLX W/RMVL OF TUMOR POLYP LESION SNARE TQ EGD ESOPHAGOGASTRODUODENOSCOPY COLONOSCOPY DIAGNOSTIC Didier Eldridge MD [address] [place] [address] [employer] [address] [place] [address] Referral ID Status Reason Start Date Expiration Date Visits Re quested Visits Authorized 1 1 [employer] Phone: reason for visit Narrative* Auth/Cert Specialty Diagnoses / Procedures Referred By Louie t Referred To Contact Diagnoses Colon cancer screening Screening Procedures LA COLONOSCOPY FLX DX W/COLLJ SPEC WHEN PFRMD LA COLONOSCOPY W/BIOPSY SINGLE/MULTIPLE LA COLSC FLX W/RMVL OF TUMOR POLYP LESION SNARE TQ COLORECTAL CANCER SCREENING, NOT HIGH RISK Didier Eldridge MD [address] [place] [address] [employer] [address] [place] [address] Referral ID Status Reason Start Date Expiration Date Visits Re quested Visits Authorized 1 1 [employer] Phone: Reason for Referral Specialty Diagnoses / Procedures Referred By Louie t Referred To Contact Radiology Diagnoses Abnormal CT scan, kidney Procedures CT Urogram Catracho Villanueva MD [address] [facility] [place] [address] Referral ID Status Reason Start Date Expiration Date V isits Requested Visits Authorized Pending Review 02/13/2022 02/03/2023 1 1 Specialty Diagnoses / Procedures Referred By Humphreyac t Referred To Contact Radiology Diagnoses Cervical radiculopathy Cervicalgia Left arm weakness Procedures MRI CERVICAL SPINE WO CONTRAST David Thomson, BICYCLE I ASSEMBLER - ROVING FRAME TENDER [address] [place] [address] Referral ID Status Reason Start Date Expiration Date Visits Re quested Visits Authorized [id number] Closed 03/03/2022 06/01/2022 1 1 Specialty Diagnoses / Procedures Referred By Louie pineda Referred To Contact Orthopedic Surgery Diagnoses Acute pain of left knee Maddie Buenrostro NP-C [address] [place] [address] [facility] [address] [facility] [address] [address] [place] [address] Referral ID Status Reason Start Date Expiration Date V isits Requested Visits Authorized [id number] Open Specialty Services Required 09/18/2024 09/18/2025 1 1 Scheduling Instructions [facility] MedicineAn[facility] Comments The patient can be scheduled with any member of the group, including the provider with the first available appointments. Summary Purpose Family History No Family History Records Found Relationship Condition Age at Onset Recorded Date/T alina father Heart disease Unknown mother Heart disease Unknown Chronic obstructive pulmonary disease Unk nown Hypertension Unknown Diabetes mellitus Unknown High blood cholesterol Unknown Scoliosis Unknown Advance Directives No Advanced Directives Records Found Advance Directive Response Recorded Date/ Time Advance Directives No March 04 6:24pm Chief Complaint and Reason for Visit Chief Complaint Admit Date Left leg swelling March 04, 2025 6:2 6pm Chief Complaint Admit Date Left leg swelling March 04, 2025 6:2 6pm Unknown March 04, 2025 8:0 5pm Reason for Visit Admit Date Decreased urination March 04, 2025 6:2 6pm Leg swelling March 04, 2025 6:2 6pm Additional Source Comments Reason for Visit (unrecogniz ed section and content) Reason Comments Finger Pain right middle finger; pt reports that she noted possible insect bite to finger this AM and has since noted red streaking going up to her forearm Specialty Diagnoses / Procedures Referred By Louie pineda Referred To Contact Radiology Diagnoses Abnormal CT scan, kidney Procedures CT Urogram Catracho Villanueva MD [address] [place] [address] Referral ID Status Reason Start Date Expiration Date V isits Requested Visits Authorized [id number] Pending Review 02/13/2022 02/03/2023 1 1 Specialty Diagnoses / Procedures Referred By Louie pineda Referred To Contact Radiology Diagnoses Cervical radiculopathy Cervicalgia Left arm weakness Procedures MRI CERVICAL SPINE WO CONTRAST David Thomson, BICYCLE I ASSEMBLER - ROVING FRAME TENDER [address] [place] [address] Referral ID Status Reason Start Date Expiration Date Visits Re quested Visits Authorized [id number] Closed 03/03/2022 06/01/2022 1 1 Reason Comments Rash Rash started with bu g bite when she was here previously, rash getting worse Reason Comments Rash Red, raised itchy ra sh across body Reason Comments New Reason Comments Foreign Body in Vagina Visine bottle in vagina per patient Reason Comments New Patient Reason Comments Patient Update Reason Comments Knee Pain Left (fell two days ago and pt states its getting worse) Reason Comments Chest Pain Patient c/o chest pa in starting around 2230. Reason Comments Numbness Pt reports numbness to bilateral arms and legs for the last couple days. States she has had 2 surgeries to her neck previously. She was standing outside and kept losing feeling to her arms and legs. [place] very warm and thought she was going to pass out. Reason Comments Chest Pain Patient to the emerg ency department by EMS from [facility] for Chest Pain while eating dinner. Patient reports that the CP went to her shoulder blades. Acknowledges to being sick with cough and congestion. 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 30 g 0 06/07/2022 cetirizine (ZYRTEC) 10 MG tablet Take 1 tablet by mouth in the morning. 30 tablet 0 06/07/2022 predniSONE (DELTASONE) 10 MG tablet Take 6 tablets by mouth in the morning for 5 doses. 30 tablet 0 06/07/2022 06/12/2022 Prescription Sig Dispensed Refills Start Date End Da te bacitracin-polymyxin b (POLYSPORIN) 500-04045 UNIT/GM ointment Apply topically 2 times daily. 28.4 g 09/18/2024 09/25/2024 ketorolac (TORADOL) 10 MG tablet Take 1 tablet by mouth every 6 hours as needed for Pain 20 tablet 09/18/2024 Prescription Sig Dispensed Refills Start Date End Da te cyclobenzaprine (FLEXERIL) 10 MG tablet Take 1 tablet by mouth 3 times daily as needed for Muscle spasms 21 tablet 12/20/2024 12/30/2024 methylPREDNISolone (MEDROL, REENA,) 4 MG tablet Take by mouth. 21 tablet 12/20/2024 12/26/2024 Scheduled Active and Recently Administ ered Medications (unrecognized section and content) Medication Order 11/09/2021 11/10/2021 11/11/2021 acetaminophen (TYLENOL) tablet 1,000 mg (COMPLETED) 1,000 mg, Oral, ONCE, On Sun11/11/21 at 1958, For 1 dose, Maximum dose of acetaminophen is 4000 mg from all sources in 24 hours. 2004 (Given - Provid er: Bonnie Hoffman RN) ceFAZolin (ANCEF) 2000 mg in dextrose 5 % 100 mL IVPB (COMPLETED) 2,000 mg, IntraVENous, ONCE, 1 dose, On Sun11/11/21 at 1932 1951 (New Bag - Prov ider: Bonnie Hoffman RN)2015 (Stopped - Provider: Bonnie Hoffman RN) ketorolac (TORADOL) injection 30 mg (COMPLETED) 30 mg, IntraVENous, ONCE, On Sun11/11/21 at 1826, For 1 dose, Do not administer for more than 5 days. 1830 (Given - Provid er: Bonnie Hoffman RN) Continuous Medication Order 03/29/2022 03/30/2022 03/31/2022 0.9 % sodium chloride infusion IntraVENous, at 100 mL/hr, CONTINUOUS, Starting on Sun03/31/22 at 1045, Pre-procedure(GI) 1058 (New Bag - Prov ider: Suellen Vieyra RN)1100 (NoRateChange - Provider: KANU Foote CRNA)1109 (Anesthesia Volume Adjustment - Provider: KANU Foote CRNA) PRN Medication Order 03/29/2022 03/30/2022 03/31/2022 simethicone (MYLICON) 40 MG/0.6ML drops (CANCELED) PRN, Starting on Sun03/31/22 at 1110, Until Sun03/31/22 at 1115, Intra-op 1110 (Given - Provid er: Didier Eldridge MD - Comment: dose approximmate in sterile water per MD) sterile water for irrigation (CANCELED) PRN, Starting on Sun03/31/22 at 1106, Intra-op 1106 (Given - Provid er: Didier Eldridge MD - Comment: dose apprpximate per MD) Scheduled Medication Order 06/05/2022 06/06/2022 06/07/2022 0.9 % sodium chloride bolus (COMPLETED) 1,000 mL (18.4 mL/kg), IntraVENous, at 983.6 mL/hr, Administer over 61 Minutes, ONCE, On Sun06/07/22 at 1517, For 1 dose 1538 (New Bag - Prov ider: Danielito Portillo RN)1656 (Stopped - Provider: Danielito Portillo RN) famotidine (PEPCID) injection 20 mg (COMPLETED) 20 mg, IntraVENous, ONCE, 1 dose, On Sun06/07/22 at 1517, IV Push over minimum of 2 minutes - Dilute with 10 mL NS 1540 (Given - Provid er: Danielito Portillo RN) methylPREDNISolone sodium (SOLU-MEDROL) injection 125 mg (COMPLETED) 125 mg, IntraVENous, ONCE, On Sun06/07/22 at 1517, For 1 dose 1540 (Given - Provid er: Danielito Portillo RN) ondansetron (ZOFRAN) injection 4 mg (COMPLETED) 4 mg, IntraVENous, ONCE, 1 dose, On Sun06/07/22 at 1517 1540 (Given - Provid er: Danielito Portillo RN) Continuous Medication Order 06/14/2022 06/15/2022 06/16/2022 0.9 % sodium chloride infusion IntraVENous, at 100 mL/hr, CONTINUOUS, Starting on Sun06/16/22 at 1200, Pre-procedure(GI) 1142 (New Bag - Prov ider: Patti Doty RN)1207 (NoRateChange - Provider: Lida Lemus APRN - NELLY) PRN Medication Order 06/14/2022 06/15/2022 06/16/2022 simethicone (MYLICON) 40 MG/0.6ML drops (CANCELED) PRN, Starting on Sun06/16/22 at 1216, Until Sun06/16/22 at 1230, Intra-op 1216 (Given - Provid er: Didier Eldridge MD - Comment: dose approximate; given in sterile water for irrigation per MD) sterile water for irrigation (CANCELED) PRN, Starting on Sun06/16/22 at 1216, Intra-op 1216 (Given - Provid er: Didier Eldridge MD - Comment: dose approximate; given via irrigation per MD) Scheduled Medication Order 09/05/2022 09/06/2022 09/07/2022 acetaminophen (TYLENOL) tablet 650 mg (COMPLETED) 650 mg, Oral, ONCE, 1 dose, On Ana María 09/07/22 at 1507, Maximum dose of acetaminophen is 4000 mg from all sources in 24 hours. 1517 (Given - Provid er: Syeda Sam RN) Scheduled Medication Order 09/16/2024 09/17/2024 09/18/2024 ketorolac (TORADOL) injection 30 mg (COMPLETED) 30 mg, IntraMUSCular, ONCE, 1 dose, On Ana María 09/18/24 at 1326, Do not administer for more than 5 days. 1336 (Given - Provid er: Moni Gallo RN) Scheduled Medication Order 07/20/2024 07/21/2024 07/22/2024 acetaminophen (Ofirmev) injection 1,000 mg (COMPLETED) 1,000 mg, intravenous, at 400 mL/hr, Administer over 15 Minutes, Once, On Sun07/22/24 at 0355, For 1 dose 0410 (New Bag - Prov ider: Nikki Michael RN)0430 (Stopped - Provider: Nikki Michael RN) alum-mag hydroxide-simeth (Mylanta) 200-200-20 mg/5 mL oral suspension 20 mL (COMPLETED) 20 mL, oral, Once, On Sun07/22/24 at 0355, For 1 dose 0358 (Given - Provid er: Nikki Michael RN) famotidine (Pepcid) tablet 20 mg (COMPLETED) 20 mg, oral, Once, On Sun07/22/24 at 0355, For 1 dose 0359 (Given - Provid er: Nikki Michael RN) iohexol (OMNIPaque) 350 mg iodine/mL solution 82 mL (COMPLETED) 82 mL, intravenous, Once in imaging, Starting on Sun07/22/24 at 0140, For 1 dose 0151 (Given - Provid er: Lionel Rodriguez) lactated Ringer's bolus 1,000 mL (COMPLETED) 1,000 mL, intravenous, at 999 mL/hr, Administer over 1 Hours, Once, On Sun07/22/24 at 0100, For 1 dose 0112 (New Bag - Prov ider: Nikki Michael RN)0341 (Stopped - Provider: Nikki Michael RN) morphine injection 4 mg (COMPLETED) 4 mg, intravenous, Once, On Sun07/22/24 at 0100, For 1 dose 0113 (Given - Provid er: Nikki Michael RN) ondansetron (Zofran) injection 4 mg (COMPLETED) 4 mg, intravenous, Once, On Sun07/22/24 at 0350, For 1 dose, When administering via IV Push, administer over 3-5 minutes. 0359 (Given - Provid er: Nikki Michael RN) Scheduled Medication Order 12/18/2024 12/19/2024 12/20/2024 cyclobenzaprine (FLEXERIL) tablet 10 mg (COMPLETED) 10 mg, Oral, ONCE, 1 dose, On 12/20/24 at 1645 1707 (Given - Provid er: Raquel Mckenzie RN) ondansetron (ZOFRAN-ODT) disintegrating tablet 4 mg (COMPLETED) 4 mg, Oral, ONCE, 1 dose, On 12/20/24 at 1645 1654 (Given - Provid er: Raquel Mckenzie RN) predniSONE (DELTASONE) tablet 50 mg (COMPLETED) 50 mg, Oral, ONCE, 1 dose, On 12/20/24 at 1645 1707 (Given - Provid er: Raquel Mckenzie RN) Care Teams (unrecognized sec tion and content) Business Office Director Relationship Specialty Start Date End Date David Thomson, BICYCLE I ASSEMBLER - ROVING FRAME TENDER [address] [place] [address] PCP - General Family Medicine 11/22/21 Business Office Director Relationship Specialty Start Date End Date David Thomson, BICYCLE I ASSEMBLER - ROVING FRAME TENDER [address] [place] [address] PCP - General Family Medicine 11/22/21 Business Office Director Relationship Specialty Start Date End Date David Thomson, BICYCLE I ASSEMBLER - ROVING FRAME TENDER [address] [place] [address] PCP - General Family Medicine 11/22/21 Business Office Director Relationship Specialty Start Date End Date David Thomson, BICYCLE I ASSEMBLER - ROVING FRAME TENDER [address] [place] [address] PCP - General Family Medicine 11/22/21 Business Office Director Relationship Specialty Start Date End Date David Thomson, BICYCLE I ASSEMBLER - ROVING FRAME TENDER [address] [place] [address] PCP - General Family Medicine 11/22/21 Business Office Director Relationship Specialty Start Date End Date David Thomson, BICYCLE I ASSEMBLER - ROVING FRAME TENDER [address] [place] [address] PCP - General Family Medicine 11/22/21 Business Office Director Relationship Specialty Start Date End Date David Thomson BICYCLE I ASSEMBLER - ROVING FRAME TENDER [address] [place] [address] PCP - General Family Medicine 11/22/21 Business Office Director Relationship Specialty Start Date End Date David Thomson [address] [place] [address] PCP - General Internal Medicine 08/03/22 Business Office Director Relationship Specialty Start Date End Date David Thomson [address] [place] [address] PCP - General Internal Medicine 08/03/22 Business Office Director Relationship Specialty Start Date End Date David Thomson [address] [place] [address] PCP - General Internal Medicine 08/03/22 Business Office Director Relationship Specialty Start Date End Date David Thomson BICYCLE I ASSEMBLER - ROVING FRAME TENDER [address] [place] [address] PCP - General Family Medicine 11/22/21 Business Office Director Relationship Specialty Start Date End Date David Thomson, BICYCLE I ASSEMBLER - ROVING FRAME TENDER [address] [facility] [address] [place] [address] PCP - General Family Medicine 11/22/21 Business Office Director Relationship Specialty Start Date End Date Generic Provider, No Assigned Pcp, NONE [facility] [place] [address] PCP - General Chemicals Fermentation Operator 07/21/24 Business Office Director Relationship Specialty Start Date End Date David Thomson, BICYCLE I ASSEMBLER - ROVING FRAME TENDER [address] [facility] [address] [place] [address] PCP - General Family Medicine 11/22/21 Business Office Director Relationship Specialty Start Date End Date David Thomson, BICYCLE I ASSEMBLER - ROVING FRAME TENDER [address] [facility] [address] [place] [address] PCP - General Family Medicine 11/22/21 Business Office Director Relationship Specialty Start Date End Date TaoDavid, BICYCLE I ASSEMBLER - ROVING FRAME TENDER [address] [facility] [address] [place] [address] PCP - General Family Medicine 11/22/21 Team Status: Active Member Role Status Dates PHYSICIAN NO FAMILY Primary Care Provider Active Team Status: Inactive Member Role Status Dates Joan Jimenez APRN Attending Provider Active S tart: March 04, 2025 End: March 04, 2025 PHYSICIAN NO FAMILY Primary Care Provider Active Start: March 04, 2025 End: March 04, 2025 Team Status: Inactive Member Role Status Dates Kan Post MD Attending Provider Active St art: March 04, 2025 End: March 04, 2025 INFORMATION SOURCE (unrecogn ized section and content) DATE CREATED AUTHOR 06/10/2022 [facility] DATE CREATED AUTHOR AUTHOR'S ORGANIZ ATION 08/07/2022 [facility] DATE CREATED AUTHOR AUTHOR'S ORGANIZ ATION 10/15/2022 [employer] DATE CREATED AUTHOR AUTHOR'S ORGANIZ ATION 08/23/2023 [facility] DATE CREATED AUTHOR AUTHOR'S ORGANIZ ATION 07/29/2024 [facility] DATE CREATED AUTHOR AUTHOR'S ORGANIZ ATION 09/21/2024 [facility] DATE CREATED AUTHOR AUTHOR'S ORGANIZ ATION 01/16/2025 [facility] DATE CREATED AUTHOR AUTHOR'S ORGANIZ ATION 02/14/2025 [facility] DATE CREATED AUTHOR AUTHOR'S ORGANIZ ATION 03/10/2025 [facility] DATE CREATED AUTHOR AUTHOR'S ORGANIZ ATION 03/24/2025 Erik escobedo Source Comments (unrecognize d section and content) In the event this informatio n is protected by the Federal Confidentiality of Alcohol and Drug Abuse Patient Records regulations: The Federal rules restrict any use of the information to criminally investigate or prosecute any alcohol or drug abuse patient.[facility] Hospital[facility] the event this information is protected by the Federal Confidentiality of Alcohol and Drug Abuse Patient Records regulations: The Federal rules restrict any use of the information to criminally investigate or prosecute any alcohol or drug abuse patient.[facility] the event this information is protected by the Federal Confidentiality of Alcohol and Drug Abuse Patient Records regulations: The Federal rules restrict any use of the information to criminally investigate or prosecute any alcohol or drug abuse patient.[facility] Goals (unrecognized section and content) Goals may be documented in a n alternate sectionGoals may be documented in an alternate section FOR RECORDS PERTAINING TO PATIENTS WHO ARE OR HAVE BEEN ENROLLED IN A CHEMICAL DEPENDENCY/SUBSTANCEABUSE PROGRAM, SOME INFORMATION MAY BE OMITTED. This clinical summary was aggregated from multiple sources. Caution should be exercised in using it in the provision of clinical care. This summary normalizes information from multiple sources, and as a consequence, information in this document may materially change the coding, format and clinical context of patient data. In addition, data may be omitted in some cases. CLINICAL DECISIONS SHOULD BE BASED ON THE PRIMARY CLINICAL RECORDS. [employer] [facility]. provides no warranty or guarantee of the accuracy or completeness of information in this document.
--- NOTE | 2025-03-24 11:40 | PC.NURSE ---
Nursing Note Cardiac Stress Test Reviewed: Medication, allergies and patient history reviewed. Stress Test: [x ] Patient tolerated stress test well. [ ] Patient unable to tolerate walking on treadmill. Switched to Lexiscan stress test. [ ] No chest pain noted per patient [x ] Chest pain that resolved prior to leaving stress lab. [ ] No dyspnea noted. [x ] Dyspnea that resolved prior to leaving stress lab. [x ] Patient left stress lab asymptomatic and hemodynamically stable. [ ] Patient taken to the Emergency Room due to non-resolving symptoms following stress test. [ ] Patient achieved target heart rate. [ ] Patient unable to achieve target heart rate. [ ] Aminophylline administered as reversal agent to Lexiscan (Regadenoson). [ ] Nitro administered. Nursing Comments:Pt had regular Tm test done. Pt did have 5/10 chest pain while walking. Pt stated she did not need to stop and continued until target was reached. Pt stated the pain got to about a 7/10 but resolved with 3-4 minutes of rest. Pt states the pain has been much worse while at her home and this is the reason for the test. Pt left stress lab with no chest pain and no SOB. Stress packet will be sent to be read today.
--- NOTE | 2025-03-24 20:14 | PM.STRESS ---
Stress Test Stress Test Allergies Allergy/AdvReac Type Severity Reaction Status Date / Time amoxicillin Allergy Severe Anaphylaxis Verified 03/04/25 19:20 tramadol Allergy Severe Anaphylaxis Verified 03/04/25 19:20 hydroxyzine (From Atarax) Allergy Intermediate Vomiting Verified 03/04/25 19:20 Requesting physician: EUFEMIA HUGGINS Procedure: Treadmill Exercise Treadmill Test General Information: Reason for Stress Test: [Chest pain] Cardiac History and Risk Factors: [HTN, dyslipidemia] Resting 12 - Lead Electrocardiogram: Normal sinus rhythm Normal ECG Stress Test: Protocol: [Rodo Protocol] Exercise Capacity: [Good] Blood Pressure Response: [Normal] Rhythm: [Sinus, no significant arrhythmias] ST - Response: [Non specific upsloping ST depressions] Patient Response: [5/10 chest pain while walking] Interpretation: 1. No ischemic EKG changes seen on treadmill, exercise stress test 2. Normal blood pressure and heart rate response to exercise 3. Non-limiting chest pain during exercise 4. [place] Treadmill Score is 4. Estimated 1 year mortality: 1.0-1.1%. Risk Category: Moderate risk. Angiography: May be indicated.
== END 2025-03-24 10:01 | disposition home or self-care (01) ==
LOC: CARD 10:00
PROVIDERS: Visit Provider Nurse Practitioner Family
DX: R07.9 Chest pain, unspecified (principal)
CPT/HCPCS: 93017

== ENCOUNTER 2025-03-29 20:13 | Emergency (ER) | payer OTHER, SELFPAY ==
--- OUTSIDE RECORDS SUMMARY | 2025-03-23 11:24 | XMS_ITS ---
Author Name Auto Generated Organization OH[facility] Care Team Providers Care Cow Buyer Name Role Phone RICHARD HARRIS Attending Unavailabl e GENERIC PROVIDER, NO ASSIGNED PCP Primary Care Unavailable DAVID THOMSON Primary Care Unavailable Kan Post Admitting Unavailable Kan Post Attending Unavailable MISTY LINDA Referring Unavailable DAVID THOMSON Primary Care Unavailable KEVON RODRIGUEZ Attending Unavailable DAVID THOMSON Primary Care Unavailable KRYS JAUREGUI Attending Unavailable DAVID THOMSON Primary Care Unavailable MISTY LINDA Referring Unavailable DAVID THOMSON Primary Care Unavailable SELF, SELF Referring Unavailable SELF, SELF Primary Care Unavailable ELY, P. ARIANNE Attending Unavailable SELF, SELF Referring Unavailable SELF, SELF Primary Care Unavailable ELY, P. ARIANNE Attending Unavailable ELY, P. ARIANNE Referring Unavailable ELY, P. ARIANNE Attending Unavailable SELF, SELF Primary Care Unavailable SELF, SELF Referring Unavailable ELY, P. ARIANNE Attending Unavailable SELF, SELF Primary Care Unavailable SELF, SELF Referring Unavailable ELY, P. ARIANNE Attending Unavailable SELF, SELF Primary Care Unavailable ELY, P. ARIANNE Referring Unavailable ELY, P. ARIANNE Attending Unavailable SELF, SELF Primary Care Unavailable SELF, SELF Referring Unavailable SELF, SELF Primary Care Unavailable ELY, P. ARIANNE Attending Unavailable SELF, SELF Referring Unavailable SELF, SELF Primary Care Unavailable ELY, P. ARIANNE Attending Unavailable PROBLEMS DATE TYPE CONDITION / CODE ATTENDING STATUS [facility] 01/26/2025 Admitting Diagnosis Chest pain, unspecified / R07.9(ICD-10) Pedro Pablo GRAVES [facility] 01/26/2025 Admitting Diagnosis Other specified disorders of eye and adnexa / H57.89(ICD-10) Pedro Pablo GRAVES ARIANNE [facility] 01/13/2025 Unknown Other chest pain / R07.89(ICD-10) MICHAELKEVON Daniel [facility] 12/20/2024 Unknown Radiculopathy, s ite unspecified / M54.10(ICD-10) KRYS JAUREGUI [facility] 11/14/2024 Admitting Diagnosis Major depressive disorder, single episode, moderate / F32.1(ICD-10) Pedro Pablo GRAVES [facility] 11/14/2024 Admitting Diagnosis Opioid dependence, in remission / F11.21(ICD-10) Pedro Pablo GRAVES [facility] 11/14/2024 Admitting Diagnosis Generalized anxiety disorder / F41.1(ICD-10) Pedro Pablo GRAVES [facility] 11/14/2024 Admitting Diagnosis Other stimulant use, unspecified, uncomplicated / F15.90(ICD-10) Pedro Pablo GRAVES [facility] 11/03/2024 Admitting diagnosis Opioid dependence, uncomplicated / F11.20(ICD-10) [facility] 10/17/2024 Admitting diagnosis Fever, unspecified / R50.9(ICD-10) [facility] 10/17/2024 Admitting diagnosis Pain, unspecified / R52(ICD-10) [facility] 09/18/2024 Principle diagnosis Pain in left knee / M25.562(ICD-10) [facility] 09/18/2024 Principle diagnosis Abrasion, left knee, initial encounter / S80.212A(ICD-10) [facility] 07/21/2024 Admitting Diagnosis Headache, unspecified / R51.9(ICD-10) KIMBERLYRICHARD [facility] PROCEDURES No Procedure Records Found RESULTS URINE CULTURE Observed: 03/04/2025 8:05 PM Status: F Source: [facility] >100,000 colonies/ml mixed bacterial skin contaminants 2 Days PERFORMED BY: [place] [address] PATHOLOGIST DENTIST BETY FISCHER M.D. Performed By: #### CUU #### [address] XR CHEST PORTABLE Observed: 01/13/2025 7:51 PM Status: F Source: [facility] EXAMINATION: ONE XRAY VIEW OF THE CHEST 01/13/2025 6:47 pm COMPARISON: None HISTORY: ORDERING SYSTEM PROVIDED HISTORY: CP TECHNOLOGIST PROVIDED HISTORY: CP FINDINGS: The heart is normal. The pulmonary vessels are normal. The lungs are mildly hyperinflated. No consolidation or effusion is seen. The bones are intact. IMPRESSION: Mild hyperinflation with no acute abnormality seen. Interpreted by: Raheem Bray MD Signed by: Raheem Bray MD 01/13/25 Final result CBC WITH DIFF Collected: 01/13/2025 6:18 PM Status: F Source: [facility] TYPE CODE TESTS RESULT OUT OF RANGE REFERENCE UNITS LAB WBC(LOINC) WBC Count 7.4 3.5-11.3 k/uL LAB RBC(LOINC) RBC Count 4.14 3.95-5.11 m/uL LAB HGB(LOINC) Hemoglobin 12.9 11.9-15.1 g/dL LAB HCT(LOINC) Hematocrit 38.0 36.3-47.1 % LAB MCV(LOINC) MCV 91.8 82.6-102.9 fL LAB MCH(LOINC) MCH 31.2 25.2-33.5 pg LAB MCHC(LOINC) MCHC 33.9 28.4-34.8 g/dL LAB RDW(LOINC) RDW 13.8 11.8-14.4 % LAB PLT(LOINC) Platelet Count 440 138-453 k/uL LAB MPVX(LOINC) MPV 8.5 8.1-13.5 fL LAB NRBCS(LOINC) NRBC Automated 0.0 0.0 per 100 WBC LAB SEG(LOINC) Neutrophil (Seg) 54 36-65 % LAB LYM(LOINC) Lymphocyte 35 24-43 % LAB MON(LOINC) Monocyte 9 3-12 % LAB EO(LOINC) Eosinophil 2 1-4 % LAB BASO(LOINC) Basophil 0 0-2 % LAB IGRAN(LOINC) Immature Granulocyte 0 0 % LAB ASEG(LOINC) Abs.Neutrophil (Seg) 3.99 1.50-8.10 k/uL LAB ALYM(LOINC) Abs. Lymph 2.57 1.10-3.70 k/uL LAB AMONO(LOINC) Abs. Monocyte 0.67 0.10-1.20 k/u L LAB AEO(LOINC) Abs. Eosinophil 0.12 0.00-0.44 k/u L LAB ABASO(LOINC) Abs. Basophil 0.03 0.00-0.20 k/u L LAB AIGRAN(LOINC) Abs.Imm.Granulo cyte <0.03 0.00-0.30 k/uL Performed By: #### BMP, TROP I, CDP #### [facility] [address] [place] [address] Donor Services Team Leader: Tray Stapleton MD BASIC METABOLIC PROF Collected: 025 6:18 PM Status: F Source: [facility] TYPE CODE TESTS RESULT OUT OF RANGE REFERENCE UNITS LAB NA(LOINC) NA (Sodium) 139 136-145 mmol/L LAB K(LOINC) K (Potassium) 4.2 3.7-5.3 mmol/L LAB CL(LOINC) Chloride 105 98-107 mmol/L LAB HCO(LOINC) CO2 22 20-31 mmol/L LAB GAP(LOINC) Anion Gap 12 9-16 mmol/L LAB GLU(LOINC) Glucose 118 High 74-99 mg/dL LAB BUN(LOINC) BUN (Urea N) 11 6-20 mg/dL LAB CRE(LOINC) Creatinine 0.8 0.50-0.90 mg/dL LAB EGFR(LOINC) eGFR >90 >60 mL/min/1. 73m2 Result Comment: These results are not intended for use in patients <18 years of age. eGFR results are calculated without a race factor using the 2020 CKD-EPI equation. Careful clinical correlation is recommended, particularly when comparing to results calculated using previous equations. The CKD-EPI equation is less accurate in patients with extremes of muscle mass, extra-renal metabolism of creatine, excessive creatine ingestion, or following therapy that affects renal tubular secretion. LAB BUNCRE(LOINC) BUN/CRE Ratio 14 9-20 LAB CA(LOINC) Calcium 8.6 8.6-10.4 mg/dL Performed By: #### BMP, TROP I, CDP #### [facility] [address] [place], [place] [id number] Donor Services Team Leader: Tray Stapleton MD TROPONIN Collected: 01/13/2025 6:18 PM Status: F Source: [facility] TYPE CODE TESTS RESULT OUT OF RANGE REFERENCE UNITS LAB HSTROP(LOINC) Troponin, High Sens <6 0-14 ng/L Result Comment: High Sensiti vity Troponin values cannot be compared with other Troponin methodologies. Performed By: #### DONNIE, TROP I, CDP #### [facility] [address] [place], [place] [id number] Donor Services Team Leader: Tray Stapleton MD CBC WITH DIFF Collected: 12/20/2024 3:02 PM Status: F Source: [facility] TYPE CODE TESTS RESULT OUT OF RANGE REFERENCE UNITS LAB WBC(LOINC) WBC Count 8.0 3.5-11.3 k/uL LAB RBC(LOINC) RBC Count 4.53 3.95-5.11 m/uL LAB HGB(LOINC) Hemoglobin 14.0 11.9-15.1 g/dL LAB HCT(LOINC) Hematocrit 41.7 36.3-47.1 % LAB MCV(LOINC) MCV 92.1 82.6-102.9 fL LAB MCH(LOINC) MCH 30.9 25.2-33.5 pg LAB MCHC(LOINC) MCHC 33.6 28.4-34.8 g/dL LAB RDW(LOINC) RDW 13.6 11.8-14.4 % LAB PLT(LOINC) Platelet Count 388 138-453 k/uL LAB MPVX(LOINC) MPV 8.8 8.1-13.5 fL LAB NRBCS(LOINC) NRBC Automated 0.0 0.0 per 100 WBC LAB SEG(LOINC) Neutrophil (Seg) 65 36-65 % LAB LYM(LOINC) Lymphocyte 27 24-43 % LAB MON(LOINC) Monocyte 7 3-12 % LAB EO(LOINC) Eosinophil 1 1-4 % LAB BASO(LOINC) Basophil 0 0-2 % LAB IGRAN(LOINC) Immature Granulocyte 0 0 % LAB ASEG(LOINC) Abs.Neutrophil (Seg) 5.18 1.50-8.10 k/uL LAB ALYM(LOINC) Abs. Lymph 2.17 1.10-3.70 k/uL LAB AMONO(LOINC) Abs. Monocyte 0.55 0.10-1.20 k/u L LAB AEO(LOINC) Abs. Eosinophil 0.05 0.00-0.44 k/u L LAB ABASO(LOINC) Abs. Basophil <0.03 0.00-0.20 k/u L LAB AIGRAN(LOINC) Abs.Imm.Granulo cyte <0.03 0.00-0.30 k/uL Performed By: #### CDP, CP, TROPI #### [facility] [address] [place] [address] Donor Services Team Leader: Tray Stapleton MD COMP METABOLIC PROF Collected: 12/20/19 3:02 PM Status: F Source: [facility] TYPE CODE TESTS RESULT OUT OF RANGE REFERENCE UNITS LAB NA(LOINC) NA (Sodium) 140 136-145 mmol/L LAB K(LOINC) K (Potassium) 3.8 3.7-5.3 mmol/L LAB CL(LOINC) Chloride 103 98-107 mmol/L LAB HCO(LOINC) CO2 26 20-31 mmol/L LAB GAP(LOINC) Anion Gap 11 9-16 mmol/L LAB GLU(LOINC) Glucose 98 74-99 mg/dL LAB BUN(LOINC) BUN (Urea N) 11 6-20 mg/dL LAB CRE(LOINC) Creatinine 0.8 0.50-0.90 mg/dL LAB EGFR(LOINC) eGFR >90 >60 mL/min/1. 73m2 Result Comment: These results are not intended for use in patients <18 years of age. eGFR results are calculated without a race factor using the 2020 CKD-EPI equation. Careful clinical correlation is recommended, particularly when comparing to results calculated using previous equations. The CKD-EPI equation is less accurate in patients with extremes of muscle mass, extra-renal metabolism of creatine, excessive creatine ingestion, or following therapy that affects renal tubular secretion. LAB BUNCRE(LOINC) BUN/CRE Ratio 14 9-20 LAB CA(LOINC) Calcium 8.9 8.6-10.4 mg/dL LAB TP(LOINC) Protein, Total 7.7 6.6-8.7 g/dL LAB ALB(LOINC) Albumin 4.7 3.5-5.2 g/dL LAB AG(LOINC) Albumin/Glob Ratio 1.6 1.0-2.5 LAB TBIL(LOINC) Bilirubin, Total 0.3 0.00-1.20 mg/dL LAB ALP(LOINC) Alkaline Phos 84 35-104 U/L LAB ALT(LOINC) ALT 6 Low 10-35 U/L LAB AST(LOINC) AST 23 10-35 U/L Performed By: #### CDP, CP, TROPI #### [facility] [address] [place] [address] [place] [address] Donor Services Team Leader: Tray Stapleton MD TROPONIN Collected: 12/20/2024 3:02 PM Status: F Source: [facility] TYPE CODE TESTS RESULT OUT OF RANGE REFERENCE UNITS LAB HSTROP(LOINC) Troponin, High Sens <6 0-14 ng/L Result Comment: High Sensiti vity Troponin values cannot be compared with other Troponin methodologies. Performed By: #### CDP, CP, TROPI #### [facility] [address] [place] [address] Donor Services Team Leader: Tray Stapleton MD CBC Collected: 8:00 AM Status: F Source: [facility] TYPE CODE TESTS RESULT OUT OF RANGE REFERENCE UNITS LAB WBC(LOINC) WBC Count 8.6 3.5-11.3 k/uL LAB RBC(LOINC) RBC Count 4.25 3.95-5.11 m/uL LAB HGB(LOINC) Hemoglobin 13.1 11.9-15.1 g/dL LAB HCT(LOINC) Hematocrit 40.6 36.3-47.1 % LAB MCV(LOINC) MCV 95.5 82.6-102.9 fL LAB MCH(LOINC) MCH 30.8 25.2-33.5 pg LAB MCHC(LOINC) MCHC 32.3 28.4-34.8 g/dL LAB RDW(LOINC) RDW 13.9 11.8-14.4 % LAB PLT(LOINC) Platelet Count 411 138-453 k/uL LAB MPVX(INC) MPV 9.6 8.1-13.5 fL LAB NRBCS([facility]) NRBC Automated 0.0 0.0 per 100 WBC Performed By: #### CP, CBC, HCG #### [facility] [address] [place] [address] Donor Services Team Leader: Tray Stapleton MD #### PHEP, HIVCMB, AHBS, TREP #### [facility] [address] [place] [address] Donor Services Team Leader: Nabor Gatica MD COMP METABOLIC PROF Collected: 11/03/20 24 8:00 AM Status: F Source: [facility] TYPE CODE TESTS RESULT OUT OF RANGE REFERENCE UNITS LAB NA(LOINC) NA (Sodium) 142 136-145 mmol/L LAB K(LOINC) K (Potassium) 3.9 3.7-5.3 mmol/L LAB CL(LOINC) Chloride 106 98-107 mmol/L LAB HCO(LOINC) CO2 25 20-31 mmol/L LAB GAP(LOINC) Anion Gap 11 9-16 mmol/L LAB GLU(LOINC) Glucose 79 74-99 mg/dL LAB BUN(LOINC) BUN (Urea N) 13 6-20 mg/dL LAB CRE(LOINC) Creatinine 0.7 0.50-0.90 mg/dL LAB EGFR(LOINC) eGFR >90 >60 mL/min/1. 73m2 Result Comment: These results are not intended for use in patients <18 years of age. eGFR results are calculated without a race factor using the 2020 CKD-EPI equation. Careful clinical correlation is recommended, particularly when comparing to results calculated using previous equations. The CKD-EPI equation is less accurate in patients with extremes of muscle mass, extra-renal metabolism of creatine, excessive creatine ingestion, or following therapy that affects renal tubular secretion. LAB BUNCRE(LOINC) BUN/CRE Ratio 19 9-20 LAB CA(LOINC) Calcium 9.3 8.6-10.4 mg/dL LAB TP(LOINC) Protein, Total 7.4 6.6-8.7 g/dL LAB ALB(LOINC) Albumin 4.4 3.5-5.2 g/dL LAB AG(LOINC) Albumin/Glob Ratio 1.5 1.0-2.5 LAB TBIL(LOINC) Bilirubin, Total 0.4 0.00-1.20 mg/dL LAB ALP(LOINC) Alkaline Phos 91 35-104 U/L LAB ALT(LOINC) ALT 9 Low 10-35 U/L LAB AST(LOINC) AST 23 10-35 U/L Performed By: #### CP, CBC, HCG #### [address] [place] [address] Donor Services Team Leader: Tray Stapleton MD #### PHEP, HIVCMB, AHBS, TREP #### [id number] [place] [address] Donor Services Team Leader: Nabor Gatica MD HCG SCREEN, BLOOD Collected: 4 8:00 AM Status: F Source: [facility] TYPE CODE TESTS RESULT OUT OF RANGE REFERENCE UNITS LAB HCG(LOINC) HCG Screen, Blood NEGATIVE NEG Result Comment: Specimens wi th hCG levels near the threshold of the test (25 mIU/mL) may give a negative or indeterminate result. In such cases, another test should be performed with a new specimen in 48-72 hours. If early is suspected clinically in this setting, correlation with quantitative serum b-hCG level is suggested. [facility] has confirmed the use of plasma for this test. This has not been cleared or approved by the U.S. Food and Drug Administration. The FDA has determined that such clearance is not necessary. Performed By: #### CP, CBC, HCG #### [address] [address] Donor Services Team Leader: Tray Stapleton MD #### PHEP, HIVCMB, AHBS, TREP #### [facility] [place] [facility] [place] [address] Donor Services Team Leader: Nabor Gatica MD HIV AG/AB Collected: 4 8:00 AM Status: F Source: [facility] TYPE CODE TESTS RESULT OUT OF RANGE REFERENCE UNITS LAB CMBHIV(LOINC) HIV Ag/Ab NONREACTIVE NR Result Comment: No laborator y evidence of HIV infection. If acute HIV infection is suspected, consider testing for HIV-1 RNA. Performed By: #### CP, CBC, HCG #### [address] [address] Donor Services Team Leader: Tray Stapleton MD #### PHEP, HIVCMB, AHBS, TREP #### [facility] [place] [facility] [place] [address] Donor Services Team Leader: Nabor Gatica MD HEP B SURF AB Collected: 4 8:00 AM Status: F Source: [facility] TYPE [facility] TESTS RESULT OUT OF RANGE REFERENCE UNITS LAB AHBS(LOINC) Hep B Surf Ab <3.50 <10 mIU/mL Result Comment: REFERENCE RANGE: <10.0 NON-REACTIVE/NOT IMMUNE >=10.0 REACTIVE/IMMUNE Performed By: #### CP, CBC, HCG #### [address] [place] [place] [address] Donor Services Team Leader: Tray Stapleton MD #### PHEP, HIVCMB, AHBS, TREP #### [facility] [place] [facility] [place] [address] Donor Services Team Leader: Nabor Gatica MD HEPATITIS ACUTE SCOOTER Collected: 024 8:00 AM Status: F Source: [facility] TYPE CODE TESTS RESULT OUT OF RANGE REFERENCE UNITS LAB HBS(LOINC) Hep B Surf Ag NONREACTIVE NR LAB AHCV(LOINC) Hep C Ab NONREACTIVE NR Result Comment: The hepatitis C procedure used in our laboratory is a Chemiluminescent test specific for three recombinant HCV antigens. A negative anti-HCV result indicates that the antibodies to hepatitis C virus are not present at this time. Individuals with reactive anti-HCV should be considered infected and infectious until proven otherwise. Confirmation of all equivocal or reactive results is recommended by ordering HCV RNA by PCR. LAB ABCM(LOINC) Hep B Core Ab,IgM NONREACTIVE NR LAB AHAVM(LOINC) Hep A Ab,IgM NONREACTIVE NR Performed By: #### CP, CBC, HCG #### [address] [place] [address] Donor Services Team Leader: Tray Stapleton MD #### PHEP, HIVCMB, AHBS, TREP #### [facility] [place] [address] Donor Services Team Leader: Nabor Gatica MD T.PALLIDUM AB SCREEN Collected: 8:00 AM Status: F Source: [facility] TYPE CODE TESTS RESULT OUT OF RANGE REFERENCE UNITS LAB [facility] T.pallidum Ab Screen NONREACTIVE NR Result Comment: T. pallidum antibodies are not detected. There is no serological evidence of infection with T. pallidum (early primary syphilis cannot be excluded). Retest in 2-4 weeks if syphilis is clinically suspect. Performed By: #### CP, CBC, HCG #### [address] [place] [address] Donor Services Team Leader: Tray Stapleton MD #### PHEP, HIVCMB, AHBS, TREP #### [facility] [address] [place] [address] Donor Services Team Leader: Nabor Gatica MD FLU A/B AG DETECTION Collected: 10/17/2024 8:05 AM S tatus: F Source: [facility] TYPE CODE TESTS RESULT OUT OF RANGE REFERENCE UNITS LAB FLUAAG(LOINC) Flu A Ag Detection POSITIVE Abnormal NEG Result Comment: for Influenz a A Antigen LAB FLUBAG(LOINC) Flu B Ag Detection NEGATIVE NEG Result Comment: for Influenz a B Antigen. Performed By: #### FLUABA ## ## [facility] [address] [place] [address] Donor Services Team Leader: Tray Stapleton MD XR KNEE LEFT (1-2 VIEWS) Observed: 09/18 1:51 PM Status: F Source: [facility] EXAMINATION: TWO XRAY VIEWS OF THE LEFT KNEE 09/18/2024 1:51 pm COMPARISON: None. HISTORY: ORDERING SYSTEM PROVIDED HISTORY: pain TECHNOLOGIST PROVIDED HISTORY: Reason for exam:->pain Is the patient ?->No What reading provider will be dictating this exam?->CRC FINDINGS: No evidence of acute fracture or dislocation. No focal osseous lesion. No evidence of joint effusion. No focal soft tissue abnormality. IMPRESSION: No acute abnormality of the knee. Interpreted by: Julius Torres MD Signed by: Julius Torres MD 09/18/24 Final result LACTATE Collected: 2:21 AM Status: F Source: [facility] TYPE CODE TESTS RESULT OUT OF RANGE REFERENCE UNITS LAB 2519-7(LOINC) Lactate 1.5 0.4-2.0 mmol/L Performed By: #### 2519-7 ## ## MATEUS CHENG ([id number]) [facility] ([facility] [address] [place] [address] TROPONIN I.CARDIAC PANEL Collected: 2:21 AM Status: F Source: [facility] Order Comment: Less than 99t h percentile of normal range cutoff- Female and children under 18 years old <14 ng/L; Male <21 ng/L: Negative Repeat testing should be performed if clinically indicated. Female and children under 18 years old 14-50 ng/L; Male 21-50 ng/L: Consistent with possible cardiac damage and possible increased clinical risk. Serial measurements may help to assess extent of myocardial damage. >50 ng/L: Consistent with cardiac damage, increased clinical risk and myocardial infarction. Serial measurements may help assess extent of myocardial damage. NOTE: Children less than 1 year old may have higher baseline troponin levels and results should be interpreted in conjunction with the overall clinical context. NOTE: Troponin I testing is performed using a different testing methodology at [facility] than at other [facility]. Direct result comparisons should only be made within the same method. TYPE CODE TESTS RESULT OUT OF RANGE REFERENCE UNITS LAB 15520-1(LOINC) Troponin I.cardiac panel 4 0-13 ng/L Performed By: #### [id number] # ### MATEUS CHENG ([id number]) [facility] ([facility] [address] [place] [address] URINALYSIS COMPLETE W REFLEX CULTURE PANEL Collected: 07/22/2024 1:27 AM Status: F Source: [facility] TYPE CODE TESTS RESULT OUT OF RANGE REFERENCE UNITS LAB 5778-6(LOINC) Color Colorless Normal Light- Yellow , Yellow, Dark-Yellow LAB 5767-9(LOINC) Appearance Clear Clear LAB 06690-8(LOINC) Specific gravity 1.013 1.005-1.035 LAB 14229-9(LOINC) pH 6.0 5.0, 5.5, 6.0, 6.5, 7.0, 7.5, 8.0 LAB 28408-5(LOINC) Protein NEGATIVE NEGAT NICOLE, 10 (TRACE), 20 (TRACE) mg/dL LAB 01346-3(LOINC) Glucose Normal Normal mg/dL LAB 84823-5(LOINC) Erythrocytes NEGATIVE NEGATIVE LAB 10269-8(LOINC) Ketones NEGATIVE NEGATIVE mg/dL LAB 70593-7(LOINC) Bilirubin NEGATIVE NEGATIVE LAB 73676-2(LOINC) Urobilinogen Normal Normal mg/d L LAB 66718-3(LOINC) Nitrite NEGATIVE NEGATIVE LAB 63814-6(LOINC) Leukocyte esterase 500 Alethea/???L Abnormal NEGATIVE Performed By: #### [id number] # ### MATEUS CHENG ([id number]) [facility] ([facility]) [address] [place] [id number] URINALYSIS MICROSCOPIC PANEL Collected: 07/22/2024 1:27 AM Status: F Source: [facility] TYPE CODE TESTS RESULT OUT OF RANGE REFERENCE UNITS LAB 93109-4(LOINC ) Leukocytes 6-10 Abnormal 1-5, NONE /HPF LAB 34048-9(LOINC ) Erythrocytes NONE NONE, 1-2, 3-5 /HPF LAB 73138-7(LOINC ) Epithelial cells.squamous 1-9 (SPARSE) Reference range not established. /HPF LAB 29696-1(LOINC ) Bacteria 1+ Abnormal NONE SEEN /HPF Performed By: #### 95319-3 # ### MATEUS CHENG ([id number]) [facility] ([facility] [address] [place] [id number] BACTERIA IDENTIFIED Observed: 07/22/2024 1:27 AM Status: F Source: [facility] Test: Urine Culture Specimen Source: Clean Catch/Voided Specimen Type: Urine Specimen Date: 07/22/2024 0127 Result Date: 07/23/2024 0833 Result Status: Final result Abnormal: No Resulting Lab: [facility] [address] [place] [address] CULTURE No significant growth Performed By: #### 630-4 ### # ESTUARDO Ortega ([id number]) [facility] ([facility]) [address] [place] [address] COMPLETE BLOOD COUNT W AUTO DIFFERENTIAL PANEL Collected: 07/22/2024 1:06 AM Status: F Source: [facility] TYPE CODE TESTS RESULT OUT OF RANGE REFERENCE UNITS LAB 6690-2(LOINC) Leukocytes 9.9 4.4-11.3 x10*3/ uL LAB 15813-8(LOINC ) Erythrocytes.nuc leated/100 leukocytes 0.0 0.0-0.0 /100 WBCs LAB 789-8(LOINC) Erythrocytes 4.21 4.00-5.20 x10* 6/uL LAB 718-7(LOINC) Hemoglobin 12.4 12.0-16.0 g/dL LAB 4544-3(LOINC) Hematocrit 38.2 36.0-46.0 % LAB 787-2(LOINC) Erythrocyte mean corpuscular volume 91 80-100 fL LAB 785-6(LOINC) Erythrocyte mean corpuscular hemoglobin 29.5 26.0-34.0 pg LAB 786-4(LOINC) Erythrocyte mean corpuscular hemoglobin concentration 32.5 32.0-36.0 g/dL LAB 788-0(LOINC) Erythrocyte distribution width 15.8 High 11.5-14.5 % LAB 777-3(LOINC) Platelets 388 150-450 x10*3/uL LAB 770-8(LOINC) Neutrophils/100 leukocytes 68.1 40.0-80.0 % LAB 51937-4(LOINC ) Granulocytes.imm ature/100 leukocytes 0.3 0.0-0.9 % Result Comment: Immature Gra nulocyte Count (IG) includes promyelocytes, myelocytes and metamyelocytes but does not include bands. Percent differential counts (%) should be interpreted in the context of the absolute cell counts (cells/UL). LAB 736-9(LOINC) Lymphocytes/100 leukocytes 22.6 13.0-44.0 % LAB 5905-5(LOINC) Monocytes/100 leukocytes 7.5 2.0-10.0 % LAB 713-8(LOINC) Eosinophils/100 leukocytes 1.1 0.0-6.0 % LAB 706-2(LOINC) Basophils/100 leukocytes 0.4 0.0-2.0 % LAB 751-8(LOINC) Neutrophils 6.76 1.20-7.70 x10*3 /uL Result Comment: Percent diff erential counts (%) should be interpreted in the context of the absolute cell counts (cells/uL). LAB 95003-1(LOINC ) Granulocytes.imm ature 0.03 0.00-0.70 x10*3/uL LAB 731-0(LOINC) Lymphocytes 2.25 1.20-4.80 x10*3 /uL LAB 742-7(LOINC) Monocytes 0.75 0.10-1.00 x10*3/u L LAB 711-2(LOINC) Eosinophils 0.11 0.00-0.70 x10*3 /uL LAB 704-7(LOINC) Basophils 0.04 0.00-0.10 x10*3/u L Performed By: #### 18344-6 # ### MATEUS CHENG ([id number]) [facility] ([facility] [address] [place] [address] COAGULATION TISSUE FACTOR INDUCED Collected: 07/22/2024 1:06 AM Status: F Source: [facility] TYPE CODE TESTS RESULT OUT OF RANGE REFERENCE UNITS LAB 5902-2(LOINC) Coagulation tissue factor induced 11.5 9.8-12.8 seconds LAB 6301-6(LOINC) Coagulation tissue factor induced.INR 1.0 0.9-1.1 NA Performed By: #### 5902-2 ## ## MATEUS CHENG ([id number]) [facility] ([facility] [address] [place] [address]64 COAGULATION SURFACE INDUCED Collected: 07/22/2024 1:06 AM Status: F Source: [facility] Order Comment: The APTT is n o longer used for monitoring Unfractionated Heparin Therapy. For monitoring Heparin Therapy, use the Heparin Assay. TYPE CODE TESTS RESULT OUT OF RANGE REFERENCE UNITS LAB 18742-8([facility]) Coagulation surface induced 36 27-38 seconds Performed By: #### 15821-0 # ### MATEUS HCENG ([id number]) [facility] ([facility] [address] [place] [address] 86047 GAS PANEL Collected: 07/22/2024 1:06 AM Status: F Source: [facility] TYPE CODE TESTS RESULT OUT OF RANGE REFERENCE UNITS LAB 2746-6(LOINC) pH 7.41 7.33-7.43 pH LAB 2020-4(LOINC) Carbon dioxide 40 Low 41-51 mm Hg LAB 2705-2(LOINC) Oxygen 87 High 35-45 mm Hg LAB 2711-0(LOINC) Oxygen saturation 98 High 45-75 % LAB 2716-9(LOINC) Oxyhemoglobin/H emoglobin.total 97.2 High 45.0-75.0 % LAB 42757-6(LOINC) Hematocrit 39.0 36.0-46.0 % LAB 55875-5(LOINC) Sodium 138 136-145 mmol/L LAB 91282-0(LOINC) Potassium 4.0 3.5-5.3 mmol/L LAB 40517-7(LOINC) Chloride 106 98-107 mmol/L LAB 05744-0(LOINC) Calcium.ionized 1.20 1.10-1.33 mmol/L LAB 06109-9(LOINC) Glucose 101 High 74-99 mg/dL LAB 2519-7(LOINC) Lactate 2.1 High 0.4-2.0 mmol/L LAB 1927-3(LOINC) Base excess 0.7 -2.0-3.0 mmol/ L LAB 95384-6(LOINC) Bicarbonate 25.4 22.0-26.0 mmo l/L LAB 16337-3(LOINC) Hemoglobin 13.0 12.0-16.0 g/dL LAB 29438-4(LOINC) Anion gap 4 11.0 10.0-25.0 mmo l/L LAB 8310-5(LOINC) Body temperature Result Comment: NOTE: Patien t Results are Not Corrected for Temperature LAB 3150-0([facility]) Oxygen/Gas.tota l 21 % Performed By: #### 45795-4 # ### MATEUS CHENG ([id number]) [facility] (C) [address] [place] [address] MAGNESIUM Collected: 4 1:06 AM Status: F Source: [facility] TYPE CODE TESTS RESULT OUT OF RANGE REFERENCE UNITS LAB 66377-5([facility]) Magnesium 2.10 1.60-2.40 mg/dL Performed By: #### 83402-4 # ### MATEUS CHENG ([id number]) [facility] (C) [address] [place] [address] 88843 PHOSPHATE Collected: 1:06 AM Status: F Source: [facility] TYPE CODE TESTS RESULT OUT OF RANGE REFERENCE UNITS LAB 2777-1([facility]) Phosphate 3.8 2.5-4.9 mg/dL Result Comment: The performa nce characteristics of phosphorus testing in heparinized plasma have been validated by the individual laboratory site where testing is performed. Testing on heparinized plasma is not approved by the FDA; however, such approval is not necessary. Performed By: #### 2777-1 ## ## MATEUS CHENG ([id number]) [facility] ([facility]) [address] [place], [place] [id number] COMPREHENSIVE METABOLIC 2000 PANEL Collected: 07/22/2024 1:06 AM Status: F Source: [facility] TYPE CODE TESTS RESULT OUT OF RANGE REFERENCE UNITS LAB 2345-7(LOINC) Glucose 98 74-99 mg/dL LAB 2951-2(LOINC) Sodium 139 136-145 mmol/L LAB 2823-3(LOINC) Potassium 3.9 3.5-5.3 mmol/L LAB 2075-0(LOINC) Chloride 107 98-107 mmol/L LAB 2027-9(LOINC) Carbon dioxide 24 21-32 mmo l/L LAB 32840-0(LOINC ) Anion gap 12 10-20 mmol/L LAB 3094-0(LOINC) Urea nitrogen 12 6-23 mg/d L LAB 2160-0(LOINC) Creatinine 0.65 0.50-1.05 mg/dL LAB 85378-6(LOINC ) Glomerular filtration rate/1.73 sq M.predicted >90 >60 mL/min/ 1.73m*2 Result Comment: Calculations of estimated GFR are performed using the 2020 CKD- EPI Study Refit equation without the race variable for the IDMS-Traceable creatinine methods. https://jasn.asnjournals.org/content/early//ASN.8833426600 LAB 02484-9(LOINC ) Calcium 9.4 8.6-10.3 mg/dL LAB 04683-9(LOINC ) Albumin 4.5 3.4-5.0 g/dL LAB 6768-6(LOINC) Alkaline phosphatase 62 33-110 U/L LAB 2885-2(LOINC) Protein 7.8 6.4-8.2 g/dL LAB 35485-2(LOINC ) Aspartate aminotransferase 17 9-39 U/L LAB 1975-2(LOINC) Bilirubin 0.3 0.0-1.2 mg/dL LAB 1743-4(LOINC) Alanine aminotransferase 8 7-45 U/L Result Comment: Patients chandana ated with Sulfasalazine may generate falsely decreased results for ALT. Performed By: #### 90383-0 # ### MATEUS CHENG ([id number]) [facility] ([facility]) [address] [place] [address] TRIACYLGLYCEROL LIPASE Collected: 07/22/2024 1:06 AM Status: F Source: [facility] Order Comment: Venipuncture immediately after or during the administration of Metamizole may lead to falsely low results. Testing should be performed immediately prior to Metamizole dosing. TYPE CODE TESTS RESULT OUT OF RANGE REFERENCE UNITS LAB 3040-3(LOINC) Triacylglycerol lipase 44 9-82 U/L Performed By: #### 3040-3 ## ## MATEUS CHENG ([id number]) [facility] ([facility] [address] [place] [address] 18448 TROPONIN I.CARDIAC PANEL Collected: 1:06 AM Status: F Source: [facility] Order Comment: Less than 99t h percentile of normal range cutoff- Female and children under 18 years old <14 ng/L; Male <21 ng/L: Negative Repeat testing should be performed if clinically indicated. Female and children under 18 years old 14-50 ng/L; Male 21-50 ng/L: Consistent with possible cardiac damage and possible increased clinical risk. Serial measurements may help to assess extent of myocardial damage. >50 ng/L: Consistent with cardiac damage, increased clinical risk and myocardial infarction. Serial measurements may help assess extent of myocardial damage. NOTE: Children less than 1 year old may have higher baseline troponin levels and results should be interpreted in conjunction with the overall clinical context. NOTE: Troponin I testing is performed using a different testing methodology at [facility] than at other [facility]. Direct result comparisons should only be made within the same method. TYPE CODE TESTS RESULT OUT OF RANGE REFERENCE UNITS LAB 00055-9([facility] Troponin I.cardiac panel 4 0-13 ng/L Performed By: #### 64390-0 # ### MATEUS CHENG ([id number]) [facility] ([facility] [address] [place] [address]173 NATRIURETIC PEPTIDE.B Collected: 07/22/2024 1:06 AM Status: F Source: [facility] Order Comment: <100 pg/mL - Heart failure unlikely 100-299 pg/mL - Intermediate probability of acute heart failure exacerbation. Correlate with clinical context and patient history. >=300 pg/mL - Heart Failure likely. Correlate with clinical context and patient history. BNP testing is performed using different testing methodology at [facility] than at other [facility]. Direct result comparisons should only be made within the same method. TYPE CODE TESTS RESULT OUT OF RANGE REFERENCE UNITS LAB 30317-8(LOINC) Natriuretic peptide.B 28 0-99 pg/mL Performed By: #### 01392-1 # ### MATEUS ANGELINE LOPEZ ([id number]) [facility] ([facility] [address] [place] [address] 68681 XR CHEST 1 VIEW Observed: 07/22/2024 12:59 AM Status: F Source: [facility] STUDY: Chest Radiograph; 07/22/2024 INDICATION: Evaluate for pneumothorax. COMPARISON: None Available ACCESSION NUMBER(S): [id number] ORDERING CLINICIAN: RICHARD HARRIS TECHNIQUE: Frontal chest was obtained at 01:26 hours. FINDINGS: CARDIOMEDIASTINAL SILHOUETTE: Cardiomediastinal silhouette is normal in size and configuration. LUNGS: Lungs are clear. ABDOMEN: No remarkable upper abdominal findings. BONES: No acute osseous changes. IMPRESSION: No acute cardiopulmonary disease. Signed by Triston Flood CT ANGIO CHEST ABDOMEN PELVIS Observed: 07/22/2024 12:59 AM Status: F Source: [facility] Interpreted By: Rohith Cha, STUDY: CT ANGIO CHEST ABDOMEN PELVIS; 07/22/2024 1:54 am INDICATION: Signs/Symptoms:Chest pain radiating toback and headache with HTN r/o dissection. COMPARISON: None. ACCESSION NUMBER(S): [id number] ORDERING CLINICIAN: RICHARD HARRIS TECHNIQUE: Axial non-contrast images of the chest abdomen, and pelvis. Axial CT images of the chest, abdomen and pelvis were obtained after the intravenous administration of iodinated contrast using angiographic technique with coronal and sagittal reformatted images. MIP images and 3D reconstructions were created on an independent workstation and reviewed. FINDINGS: VASCULATURE: PULMONARY ARTERIES: No acute pulmonary embolism. THORACIC AORTA: Non-contrast images show no evidence of acute intramural hematoma. No thoracic aortic aneurysm or dissection. No significant thoracic aortic atherosclerosis. ABDOMINAL AORTA: No abdominal aortic aneurysm or dissection. Mild abdominal aortic atherosclerosis. 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 No hemodynamically significant stenosis or occlusion. CT CHEST: MEDIASTINUM AND LYMPH NODES: The esophageal wall appears within normal limits. No enlarged intrathoracic or axillary lymph nodes by imaging criteria. No pneumomediastinum. HEART: Normal size. No coronary artery calcifications. No significant pericardial effusion. LUNG, PLEURA, LARGE AIRWAYS: Tiny linear scar in the right lower lobe versus subpleural lymph node. No consolidation, pulmonary edema, pleural effusion or pneumothorax. OSSEOUS STRUCTURES: No acute osseous abnormality. CHEST WALL SOFT TISSUES: No discernible abnormality. CT ABDOMEN/PELVIS: ABDOMINAL WALL: No significant abnormality. LIVER: Within segment 8, there is a 1.4 cm hypervascular lesion with peripheral discontinuous nodular enhancement and central hypoenhancement consistent with hemangioma. Within segment for a there is a blush like 0.8 cm area of hypervascularity that is favored to represent a shunt versus flash filling hemangioma, the latter favored given correspond hypodense area noted on noncontrast imaging. There is an identical appearing blush like area of hypervascular enhancement in the caudate lobe measuring 0.7 cm with similar differential diagnosis. BILE DUCTS: The common bile duct measures 0.7 cm, upper limits of normal. There is no intrahepatic ductal dilatation. GALLBLADDER: No significant abnormality. PANCREAS: The main pancreatic duct is upper limits of normal, measuring 0.3 cm. There is no premature duct truncation. There is no evidence of acute pancreatic inflammation. SPLEEN: No significant abnormality. ADRENALS: No significant abnormality. KIDNEYS, URETERS, BLADDER: There are bilateral subcentimeter nonobstructing renal calculi measuring up to 0.3 cm on the right and 0.2 cm on the left. The urinary bladder wall thickness appears within normal limits for degree of distention. REPRODUCTIVE ORGANS: No significant abnormality. VESSELS: (See above). No additional significant abnormality. RETROPERITONEUM/LYMPH NODES: No acute retroperitoneal abnormality. No enlarged lymph nodes. BOWEL/MESENTERY/PERITONEUM: No inflammatory bowel wall thickening or dilatation. The appendix is not identified; however, there are no pericecal inflammatory changes. No significant ascites, free air, or fluid collection. OSSEOUS STRUCTURES: No acute osseous abnormality. IMPRESSION: 1. No thoracic or abdominal aortic aneurysm or acute aortic pathology. 2. No acute abnormality of the chest, abdomen or pelvis. 3. Multiple hypervascular foci in the liver at least 2 of which represent hemangiomas measuring up to 1.4 cm, with the 3rd possibly representing a shunt versus flash filling hemangioma. For nonobstructing subcentimeter bilateral renal calculi. MACRO: None. Signed by: Alberto Cha 07/22/2024 2:22 AM Dictation workstation: [id number] ECG 12-LEAD Observed: 07/22/2024 12:00 AM Status: F Source: [facility] Ventricular Rate 88 Atrial Rate 88 P-R Interval 108 QRS Duration 84 Q-T Interval 362 QTC Calculation(Bazett) 438 P [place] 45 R [place] 85 T [place] 71 QRS Count 15 Q Onset 218 P Onset 164 P Offset 210 T Offset 399 QTC [place] 411 Diagnosis Sinus rhythm with short MI Otherwise normal ECG No previous ECGs available See ED provider note for full interpretation and clinical correlation Confirmed by June Salamanca ([id number]) on 07/27/2024 10:17:55 AM ALLERGIES DATE TYPE / CODE NAME / CODE REACTION SEVERITY SOURCE 07/22/2024 DRUG INGREDI/[id number](S NOMED CT) [facility] DRUG INGREDI/[id number](S NOMED CT) TRAMADOL Rash [facility] ENCOUNTERS ADMIT/DISCHARGE ACCOUNT NUMBER ADMITTING ENCOUNTER CLASS LOCATION SOURCE 03/23/2025 [id number] Ambulatory Buildin [facility] 03/04/2025/03/04/20 [id number] [facility] 02/23/2025 [id number] Ambulatory Buildin [facility] 01/26/2025 [id number] Ambulatory Buildin [facility] 01/13/2025/01/14/20 [id number] Emergency Building:[facility] Room: 09Bed: 09 [facility] 12/20/2024/12/20/19 [id number] Emergency Building:[facility] Room: 01BBed: 01B [facility] 12/18/2024 [id number] Ambulatory Buildin [facility] 12/04/2024 [id number] Ambulatory Buildin [facility] 11/28/2024 [id number] Ambulatory Buildin [facility] 11/21/2024 [id number] Ambulatory Buildin [facility] 11/14/2024 [id number] Ambulatory Buildin [facility] 11/03/2024/11/03/20 24 [id number] Ambulatory Building:[facility] 10/17/2024/10/17/20 24 [id number] Ambulatory Building:[facility] 09/18/2024/09/18/20 24 [id number] Emergency Building:[facility] Room: UBA43Hyg: [address] 07/21/2024/07/22/20 24 [id number] Emergency Building:[facility] EDRoom: [id number] : [address] PAYERS ENCOUNTER [employer]ARANT[employer] 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 SOURCE 03/23/2025 BARBARA RAMEY: [address] [place] [address]Voe: () Primary Insurance:MOLINAPolicy Number: [id number] Date:5973-41-42Rixk Name:MARTHA RAMEY: [id number] [place] [address] [facility] 03/04/2025 Barbara Giron [id number] [place] [address]Psb: (HP) Primary Insurance:Self PayPolicy Number: Effective Date:2025-03-04 [facility]/2025 BARBARA RAMEY: [place], [place] [address]Jju: (HP) Primary Insurance:MOLINAPolicy Number: [id number] Date:4527-25-64Oumj Name:MARTHA RAMEY: [id number] [place] [address] [facility] 01/26/2025 BARBARA RAMEY: [place] [address]Tkq: (HP) Primary Insurance:[facility] Number: [id number] Date:0058-30-96Prir Name:MARTHA ZAMBRANOB: [id number] [place] [address] [facility] 01/13/2025 BARBARA ZAMBRANOB: [address] [place] [place] [address]Kvr: (HP) Primary Insurance:[facility] MEDICAIDPolicy Number: [id number] Date:2021-10-[address] [address]AY: BARBARA ZAMBRANOB: [id number] [facility] [address] [place] [address]Zwx: (HP) [facility] 12/20/2024 BARBARA AMBROCIODOB: [address] [place] [address]Jod: (HP) Primary Insurance:[facility] [place] MEDICAIDPoly Number: [id number] Date:2021-10-[address] [address]RK: BARBARA ZAMBRANOB: [id number] [facility] [address] [place] [address]Pxz: (HP) [facility] 12/18/2024 BARBARA AMBROCIODOB: [address] [place] [address]Bgz: (HP) Primary Insurance:[facility] Number: [id number] Date:7899-40-63Ojqi Name:MARTHA ZAMBRANOB: [id number] [place] [address] [facility] 12/04/2024 BARBARA ZAMBRANOB: [address] [place] [address]Pzq: (HP) Primary Insurance:MOLINAPolicy Number: [id number] Date:5891-30-66Xnyc Name:MARTHA RAMEY: [id number] [place] [address] [facility] 11/28/2024 BARBARA ZAMBRANOB: [address] [place] [address]Eup: (HP) Primary Insurance:MOLINAPolicy Number: [id number] Date:7877-66-27Cgjb Name:MARTHA RAMEY: [id number] [place] [address] [facility] 11/21/2024 BARBARA ZAMBRANOB: [address] [place] [address]Fse: (HP) Primary Insurance:MOLINAPolicy Number: [id number] Date:7672-43-21Bvnt Name:MARTHA RAMEY: [id number] [place] [address] [facility] 11/14/2024 BARBARA ZAMBRANOB: [address] [place] [address]Bix: (HP) Primary Insurance:[facility] MEDICAIDPolicy Number: [id number] Date:6461-40-32Iioa Name:MARTHA RAMEY: [id number] [place] [address] [facility] 11/14/2024 Secondary Insurance:MOLINAPolicy Number: [id number] Date:8148-32-70Ozca Name:MARTHA RAMEY: [id number] [place] [address] [facility] 11/03/2024 BARBARA MAYLESDOB: [address] [place] [address]Tkh: (HP) [place] Insurance[place]ID [place] Number: [id number] Date:2023-11-05[address] [facility] [address], [place] [address]FP: BARBARA MAYLESDOB: [id number] [place] [address]Ezb: (HP) [facility] 10/17/2024 BARBARA MAYLESDOB: [address] [place] [address]Jdv: (HP) Primary Insurance:[facility] MEDICAIDPolicy Number: [id number] Date:2014-11-05[address] [place] [address]GR: BARBARA MAYLESDOB: [id number] [place] [address]Zxa: (HP) [facility] 10/17/2024 Secondary Insurance:[facility] ACAPolicy Number: [id number] Date:0548-28-88[address] [address]EM: [facility]: [id number] [place] [address]Xde: (HP) [facility] 10/17/2024 Tertiary Insurance:[facility] MEDICAIDPolicy Number: [id number] Date:8144-35-57PQ[address] [address]JJ: BARBARA MAYLESDOB: [id number] [place] [address]Fbo: (HP) [facility] 09/18/2024 BARBARA ZAMBRANOB: [id number] [address] [place] [address]Gdo: (HP) Primary Insurance:[facility] MEDICAIDPolicy Number: [id number] Date:2014-11-05[id number] [place] [address]GF: BARBARA ZAMBRANOB: [id number] [address]KIE HERNAN[address]Z [address] [place] [address]Hho: (HP) [facility] 07/21/2024 BARBARA ZAMBRANOB: [id number] [address] [place] [address]Onm: (HP) Primary Insurance:CORRECTIONAL FACILITYPolicy Number: [id number] Date:2024-06-25 BARBARA ZAMBRANOB: [id number] [place] [address]Ocm: (HP) [facility]
[2025-03-29 20:19] VITALS: BP 133/99; PULSE 98; TEMP 36.8; O2SAT 98; BMI 21.3
--- NOTE | 2025-03-29 20:38 | ED.EXTPRO1 ---
Documented by User: Sheyla Freitas 03/29/25 22:04 HPI - Extremity Problem General Chief complaint: Extremity Problem, Nontraumatic Stated complaint: Edema Time Seen by Provider: 03/29/25 20:31 Source: patient Mode of arrival: Wheelchair Limitations: no limitations History of Present Illness HPI Narrative: 39 year old female presents to the ED for bilateral leg pain/swelling, right lower back pain. Onset was yesterday. She has chronic low back pain. Denies fever, chills, recent injury, urinary symptoms. Denies saddle anesthesia. Denies change in bowel and/or bladder control. Pt reports her last void was just prior to arrival. States she has not had anything for pain today. 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 She is on suboxone. Denies CP, SOB, dizziness. Denies chance of . Related Data Home Medications ?Medication ?Instructions ?Recorded ?Confirmed aspirin 81 mg tablet,delayed 81 mg PO DAILY 03/04/25 03/11/25 release buprenorphine 8 mg-naloxone 2 mg 1 film sublingual DAILY 03/04/25 03/11/25 sublingual film cholecalciferol (vitamin D3) 50 50 mcg PO DAILY 03/04/25 03/11/25 mcg (2,000 unit) tablet (Vitamin D3) hydroxyzine pamoate 50 mg capsule 50 mg PO TID PRN anxiety 03/04/25 03/11/25 naloxone 4 mg/actuation nasal spray 1 spray intranasal Q3M PRN opioid 03/04/25 03/11/25 overdose sertraline 50 mg tablet 50 mg PO DAILY 03/04/25 03/11/25 Previous Rx's ?Medication ?Instructions ?Recorded levofloxacin 750 mg tablet 750 mg PO DAILY 7 days #7 tabs 03/05/25 methocarbamol 750 mg tablet 750 mg PO Q6H PRN muscle spasm #30 03/05/25 tabs pregabalin 75 mg capsule 75 mg PO BID #60 caps 03/05/25 ketorolac 10 mg tablet 10 mg PO TID PRN pain #10 tabs 03/11/25 Allergies Allergy/AdvReac Type Severity Reaction Status Date / Time amoxicillin Allergy Severe Anaphylaxis Verified 03/29/25 20:28 tramadol Allergy Severe Anaphylaxis Verified 03/29/25 20:28 hydroxyzine (From Atarax) Allergy Intermediate Vomiting Verified 03/29/25 20:28 Review of Systems ROS Constitutional Denies: fever or chills Ears, nose, mouth, and throat Denies: neck pain Cardiovascular Denies: chest pain Respiratory Denies: shortness of breath Gastrointestinal Denies: abdominal pain Genitourinary Denies: painful urination, urinary frequency or urinary urgency Musculoskeletal Reports: back pain, extremity pain and extremity swelling; Denies: neck pain Integumentary/Breast Denies: rash Neurological Denies: headache, numbness in extremities, weakness in extremities or dizziness PFSH [facility] Medical History (Updated 03/29/25 @ 22:02 by Sheyla Freitas) Herniated nucleus pulposus, L5-S1, left ?M51.27 - Other intervertebral disc displacement, lumbosacral region (ICD-10) Lumbar spinal stenosis ?M48.061 - Spinal stenosis, lumbar region without neurogenic claudication (ICD-10) Hx of drug abuse ?F19.11 - Other psychoactive substance abuse, in remission (ICD-10) Atypical chest pain ?R07.89 - Other chest pain (ICD-10) Chest pain ?R07.9 - Chest pain, unspecified (ICD-10) Hyperlipemia ?E78.5 - Hyperlipidemia, unspecified (ICD-10) PTSD (post-traumatic stress disorder) ?F43.10 - Post-traumatic stress disorder, unspecified (ICD-10) Bipolar 1 disorder ?F31.9 - Bipolar disorder, unspecified (ICD-10) HTN (hypertension) ?I10 - Essential (primary) hypertension (ICD-10) Degenerative disc disease COPD (chronic obstructive pulmonary disease) ?J44.9 - Chronic obstructive pulmonary disease, unspecified (ICD-10) Hx of renal calculi ?Z87.442 - Personal history of urinary calculi (ICD-10) Family History (Updated 03/05/25 @ 00:46 by Lisa Palomares RN) Grandmother Family history of CHF (congestive heart failure) Mother Family history of COPD (chronic obstructive pulmonary disease) Family history of cancer Family history of diabetes mellitus Family history of hypertension Family history of myocardial infarction Social History Within the past year, how often did you have a drink containing alcohol: never Score interpretation: A score less than 3 is consistent with normal alcohol consumption. Smoking status: Current every day smoker Non-prescribed substance use: former substance user Highest level of school completed/degree received: GED or equivalent Are you now , , , , never or living with a partner: In a typical week, how many times do you talk on the telephone with family, friends, or neighbors: 3 or more times per week How often do you get together with friends or relatives: 3 or more times per week Little interest or pleasure in doing things: not at all Feeling down, depressed, or hopeless: not at all Feel stressed/tense/nervous/anxious/difficulty sleeping: decline to answer Gender Identity: female Exam Constitutional Vital Signs, click to edit/add: Last Vital Signs Temp 98.3 F 03/29/25 20:19 Pulse 98 H 03/29/25 20:19 Resp 20 03/29/25 20:19 BP 133/99 H 03/29/25 20:19 Pulse Ox 98 03/29/25 20:19 O2 Del Method Room Air 03/29/25 20:19 Common normals: no apparent distress and oriented x3 General appearance: cooperative Eye Common normals: conjunctivae normal and no scleral icterus Neck & C-Spine Common normals: supple Chest Chest: symmetrical chest wall rise Cardio Common normals: regular rate and regular rhythm Peripheral pulses: ulnar pulses present and dorsalis pedis pulses present Back & Pelvis Thoracic spine/upper back: normal to inspection; no thoracic spinal tenderness and no paraspinal muscle tenderness Lumbar spine/lower back: normal to inspection and paraspinal muscle tenderness Lumbar paraspinal muscle tenderness: right; no lumbar spinal tenderness Extremity Other: Tenderness to BLE. No swelling appreciated. Pedal pulses palpable. Neuro Common normals: oriented x3, CN's II-XII intact bilaterally, moves all extremities and no focal motor deficits Sensorium/orientation: awake and alert Speech: speech normal Course Vital Signs Vital signs: Vital Signs Temperature 98.3 F 03/29/25 20:19 Pulse Rate 98 H 03/29/25 20:19 Respiratory Rate 20 03/29/25 20:19 Blood Pressure 133/99 H 03/29/25 20:19 Pulse Oximetry 98 03/29/25 20:19 Oxygen Delivery Method Room Air 03/29/25 20:19 Temperature 98.3 F 03/29/25 20:19 Pulse Rate 98 H 03/29/25 20:19 Respiratory Rate 20 03/29/25 20:19 Blood Pressure 133/99 H 03/29/25 20:19 Pulse Oximetry 98 03/29/25 20:19 Oxygen Delivery Method Room Air 03/29/25 20:19 MDM - Extremity (Nontraumatic) MDM Narrative Medical decision making narrative: CBC, BMP, and BNP were unremarkable. The patient was medicated with Toradol, Norflex, and a lidocaine patch here. She reported no change. Decadron and Tylenol were also ordered. Laboratory findings were discussed with the patient. Lab Data Labs: Lab Results 03/29/25 Range/Units 20:49 WBC 7.2 (4.0-11.0) 10^3/uL RBC 3.90 L (4.20-5.40) 10^6/uL Hgb 12.1 (12.0-16.0) g/dL Hct 37.0 (36.0-48.0) % MCV 94.9 (81.0-99.0) fL MCH 31.0 (26.7-34.0) pg MCHC 32.7 (29.9-35.2) g/dL RDW 13.7 (11.0-15.0) % Plt Count 351 (150-450) 10^3/uL MPV 9.0 L (9.5-13.5) fL Neut % (Auto) 51.2 (43.0-75.0) % Lymph % (Auto) 36.1 (20.5-60.0) % [place] % (Auto) 10.3 (1.7-12.0) % Eos % (Auto) 1.7 (0.9-7.0) % Baso % (Auto) 0.6 (0.2-2.0) % Neut # (Auto) 3.7 (1.4-6.5) 10^3/uL Lymph # (Auto) 2.6 (1.2-3.8) 10^3/uL [place] # (Auto) 0.7 (0.3-0.8) 10^3/uL Eos # (Auto) 0.1 (0.0-0.7) 10^3/uL Baso # (Auto) 0.0 (0.0-0.1) 10^3/uL Abs Immat Gran (auto) 0.01 (0.00-0.03) 10^3/uL Imm/Tot Granulo (auto) 0.1 (0.0-0.5) % Sodium 145 (136-145) mmol/L Potassium 3.9 (3.5-5.1) mmol/L Chloride 108 H (98-107) mmol/L Carbon Dioxide 29.8 (21.0-32.0) mmol/L Anion Gap 11.1 BUN 10.0 (7.0-18.0) mg/dL Creatinine 0.94 (0.55-1.02) mg/dL Est GFR ( Amer) >60 (>=60 mL/min/1.73m^2) Est GFR (Non-Af Amer) >60 (>=60 mL/min/1.73m^2) BUN/Creatinine Ratio 10.6 Glucose 112 H (74-106) mg/dL Calcium 8.5 (8.5-10.1) mg/dL NT-Pro-B Natriuret Pep 31.0 (<=450.0) pg/mL Discharge Plan Discharge Chief Complaint: Extremity Problem, Nontraumatic Clinical Impression: Acute exacerbation of chronic low back pain, Bilateral leg pain Patient Disposition: Home, Self-Care Time of Disposition Decision: 22:18 Condition: Good Mode of Transportation: Private Vehicle Prescriptions / Home Meds: No Action aspirin 81 mg tablet,delayed release (DR/EC) 81 mg PO DAILY sertraline 50 mg tablet 50 mg PO DAILY buprenorphine-naloxone 8-2 mg film 1 film sublingual DAILY cholecalciferol (vitamin D3) [Vitamin D3] 50 mcg (2,000 unit) tablet 50 mcg PO DAILY hydroxyzine pamoate 50 mg capsule 50 mg PO TID PRN (Reason: anxiety) naloxone 4 mg/actuation spray,non-aerosol 1 spray INTRANASAL Q3M PRN (Reason: opioid overdose) pregabalin 75 mg Capsule 75 mg PO BID Qty: 60 0RF levofloxacin 750 mg tablet 750 mg PO DAILY 7 Days Qty: 7 0RF methocarbamol 750 mg tablet 750 mg PO Q6H PRN (Reason: muscle spasm) Qty: 30 0RF ketorolac 10 mg tablet 10 mg PO TID PRN (Reason: pain) Qty: 10 0RF Print Language: [place] Citizen Instructions: Chronic Pain (ED), Leg Pain (ED) Additional Instructions: Call the office of your primary care doctor to arrange for follow-up within the above-stated timeframe. Your ED visit was focused on your acute issue and does not replace primary care. You should review your labs, imaging, and diagnoses from this ED visit with your primary care physician. There may be non-emergent/ incidental findings that need further evaluation. You should review your vital signs including blood pressure with your PCP. If you were prescribed medications you should discuss possible side-effects and drug interactions with your pharmacist. Call 911 or go to the nearest Emergency Department if you develop any new or worsening symptoms. Referrals: EUFEMIA HUGGINS [Primary Care Provider, Family Practice] - 1 week Documented by User: Twin Chan MD 03/29/25 22:22 HPI - Extremity Problem General Chief complaint: Extremity Problem, Nontraumatic Stated complaint: Edema Time Seen by Provider: 03/29/25 20:31 Related Data Home Medications ?Medication ?Instructions ?Recorded ?Confirmed aspirin 81 mg tablet,delayed 81 mg PO DAILY 03/04/25 03/11/25 release buprenorphine 8 mg-naloxone 2 mg 1 film sublingual DAILY 03/04/25 03/11/25 sublingual film cholecalciferol (vitamin D3) 50 50 mcg PO DAILY 03/04/25 03/11/25 mcg (2,000 unit) tablet (Vitamin D3) hydroxyzine pamoate 50 mg capsule 50 mg PO TID PRN anxiety 03/04/25 03/11/25 naloxone 4 mg/actuation nasal spray 1 spray intranasal Q3M PRN opioid 03/04/25 03/11/25 overdose sertraline 50 mg tablet 50 mg PO DAILY 03/04/25 03/11/25 Previous Rx's ?Medication ?Instructions ?Recorded levofloxacin 750 mg tablet 750 mg PO DAILY 7 days #7 tabs 03/05/25 methocarbamol 750 mg tablet 750 mg PO Q6H PRN muscle spasm #30 03/05/25 tabs pregabalin 75 mg capsule 75 mg PO BID #60 caps 03/05/25 ketorolac 10 mg tablet 10 mg PO TID PRN pain #10 tabs 03/11/25 Allergies Allergy/AdvReac Type Severity Reaction Status Date / Time amoxicillin Allergy Severe Anaphylaxis Verified 03/29/25 20:28 tramadol Allergy Severe Anaphylaxis Verified 03/29/25 20:28 hydroxyzine (From Atarax) Allergy Intermediate Vomiting Verified 03/29/25 20:28 PFSH [facility] Medical History (Updated 03/29/25 @ 22:02 by Sheyla Freitas) Herniated nucleus pulposus, L5-S1, left ?M51.27 - Other intervertebral disc displacement, lumbosacral region (ICD-10) Lumbar spinal stenosis ?M48.061 - Spinal stenosis, lumbar region without neurogenic claudication (ICD-10) Hx of drug abuse ?F19.11 - Other psychoactive substance abuse, in remission (ICD-10) Atypical chest pain ?R07.89 - Other chest pain (ICD-10) Chest pain ?R07.9 - Chest pain, unspecified (ICD-10) Hyperlipemia ?E78.5 - Hyperlipidemia, unspecified (ICD-10) PTSD (post-traumatic stress disorder) ?F43.10 - Post-traumatic stress disorder, unspecified (ICD-10) Bipolar 1 disorder ?F31.9 - Bipolar disorder, unspecified (ICD-10) HTN (hypertension) ?I10 - Essential (primary) hypertension (ICD-10) Degenerative disc disease COPD (chronic obstructive pulmonary disease) ?J44.9 - Chronic obstructive pulmonary disease, unspecified (ICD-10) Hx of renal calculi ?Z87.442 - Personal history of urinary calculi (ICD-10) Family History (Updated 03/05/25 @ 00:46 by Lisa Palomares RN) Grandmother Family history of CHF (congestive heart failure) Mother Family history of COPD (chronic obstructive pulmonary disease) Family history of cancer Family history of diabetes mellitus Family history of hypertension Family history of myocardial infarction Social History Within the past year, how often did you have a drink containing alcohol: never Score interpretation: A score less than 3 is consistent with normal alcohol consumption. Smoking status: Current every day smoker Non-prescribed substance use: former substance user Highest level of school completed/degree received: GED or equivalent Are you now , , , , never or living with a partner: In a typical week, how many times do you talk on the telephone with family, friends, or neighbors: 3 or more times per week How often do you get together with friends or relatives: 3 or more times per week Little interest or pleasure in doing things: not at all Feeling down, depressed, or hopeless: not at all Feel stressed/tense/nervous/anxious/difficulty sleeping: decline to answer Gender Identity: female Exam Constitutional Vital Signs, click to edit/add: Last Vital Signs Temp 98.3 F 03/29/25 20:19 Pulse 98 H 03/29/25 20:19 Resp 20 03/29/25 20:19 BP 133/99 H 03/29/25 20:19 Pulse Ox 98 03/29/25 20:19 O2 Del Method Room Air 03/29/25 20:19 Course Vital Signs Vital signs: Vital Signs Temperature 98.3 F 03/29/25 20:19 Pulse Rate 98 H 03/29/25 20:19 Respiratory Rate 20 03/29/25 20:19 Blood Pressure 133/99 H 03/29/25 20:19 Pulse Oximetry 98 03/29/25 20:19 Oxygen Delivery Method Room Air 03/29/25 20:19 Temperature 98.3 F 03/29/25 20:19 Pulse Rate 98 H 03/29/25 20:19 Respiratory Rate 20 03/29/25 20:19 Blood Pressure 133/99 H 03/29/25 20:19 Pulse Oximetry 98 03/29/25 20:19 Oxygen Delivery Method Room Air 03/29/25 20:19 MDM - Extremity (Nontraumatic) MDM Narrative Medical decision making narrative: CBC, BMP, and BNP were unremarkable. The patient was medicated with Toradol, Norflex, and a lidocaine patch here. She reported no change. Decadron and Tylenol were also ordered. Laboratory findings were discussed with the patient. Signout note: Patient was seen at the bedside. She is seated comfortably in bed in no distress. Discussed laboratory work results with the patient. No significant edema is discernible on exam, likely dependent edema given the heat. She has history of chronic back pain, she was given reasonable treatment for this pain. No indication for controlled substances at this time. She is appropriate for discharge home and follow-up with her primary care provider. Twin Chan DO, [facility] Lab Data Labs: Lab Results 03/29/25 Range/Units 20:49 WBC 7.2 (4.0-11.0) 10^3/uL RBC 3.90 L (4.20-5.40) 10^6/uL Hgb 12.1 (12.0-16.0) g/dL Hct 37.0 (36.0-48.0) % MCV 94.9 (81.0-99.0) fL MCH 31.0 (26.7-34.0) pg MCHC 32.7 (29.9-35.2) g/dL RDW 13.7 (11.0-15.0) % Plt Count 351 (150-450) 10^3/uL MPV 9.0 L (9.5-13.5) fL Neut % (Auto) 51.2 (43.0-75.0) % Lymph % (Auto) 36.1 (20.5-60.0) % [place] % (Auto) 10.3 (1.7-12.0) % Eos % (Auto) 1.7 (0.9-7.0) % Baso % (Auto) 0.6 (0.2-2.0) % Neut # (Auto) 3.7 (1.4-6.5) 10^3/uL Lymph # (Auto) 2.6 (1.2-3.8) 10^3/uL [place] # (Auto) 0.7 (0.3-0.8) 10^3/uL Eos # (Auto) 0.1 (0.0-0.7) 10^3/uL Baso # (Auto) 0.0 (0.0-0.1) 10^3/uL Abs Immat Gran (auto) 0.01 (0.00-0.03) 10^3/uL Imm/Tot Granulo (auto) 0.1 (0.0-0.5) % Sodium 145 (136-145) mmol/L Potassium 3.9 (3.5-5.1) mmol/L Chloride 108 H (98-107) mmol/L Carbon Dioxide 29.8 (21.0-32.0) mmol/L Anion Gap 11.1 BUN 10.0 (7.0-18.0) mg/dL Creatinine 0.94 (0.55-1.02) mg/dL Est GFR ( Amer) >60 (>=60 mL/min/1.73m^2) Est GFR (Non-Af Amer) >60 (>=60 mL/min/1.73m^2) BUN/Creatinine Ratio 10.6 Glucose 112 H (74-106) mg/dL Calcium 8.5 (8.5-10.1) mg/dL NT-Pro-B Natriuret Pep 31.0 (<=450.0) pg/mL Discharge Plan Discharge Chief Complaint: Extremity Problem, Nontraumatic Clinical Impression: Acute exacerbation of chronic low back pain, Bilateral leg pain Patient Disposition: Home, Self-Care Time of Disposition Decision: 22:18 Condition: Good Mode of Transportation: Private Vehicle Prescriptions / Home Meds: No Action aspirin 81 mg tablet,delayed release (DR/EC) 81 mg PO DAILY sertraline 50 mg tablet 50 mg PO DAILY buprenorphine-naloxone 8-2 mg film 1 film sublingual DAILY cholecalciferol (vitamin D3) [Vitamin D3] 50 mcg (2,000 unit) tablet 50 mcg PO DAILY hydroxyzine pamoate 50 mg capsule 50 mg PO TID PRN (Reason: anxiety) naloxone 4 mg/actuation spray,non-aerosol 1 spray INTRANASAL Q3M PRN (Reason: opioid overdose) pregabalin 75 mg Capsule 75 mg PO BID Qty: 60 0RF levofloxacin 750 mg tablet 750 mg PO DAILY 7 Days Qty: 7 0RF methocarbamol 750 mg tablet 750 mg PO Q6H PRN (Reason: muscle spasm) Qty: 30 0RF ketorolac 10 mg tablet 10 mg PO TID PRN (Reason: pain) Qty: 10 0RF Print Language: [place] Citizen Instructions: Chronic Pain (ED), Leg Pain (ED) Additional Instructions: Call the office of your primary care doctor to arrange for follow-up within the above-stated timeframe. Your ED visit was focused on your acute issue and does not replace primary care. You should review your labs, imaging, and diagnoses from this ED visit with your primary care physician. There may be non-emergent/ incidental findings that need further evaluation. You should review your vital signs including blood pressure with your PCP. If you were prescribed medications you should discuss possible side-effects and drug interactions with your pharmacist. Call 911 or go to the nearest Emergency Department if you develop any new or worsening symptoms. Referrals: EUFEMIA HUGGINS [Primary Care Provider, Family Practice] - 1 week
[2025-03-29 20:57] LABS: Basophils Percent Auto 0.6 % (0.2-2.0); Eosinophils Absolute Auto 0.1 10^3/uL (0.0-0.7); Eosinophils Percent Auto 1.7 % (0.9-7.0); Hemoglobin 12.1 g/dL (12.0-16.0); Immature Granulocytes Abs Auto 0.01 10^3/uL (0.00-0.03); Immature Granulocytes Pct Auto 0.1 % (0.0-0.5); Lymphocytes Absolute Auto 2.6 10^3/uL (1.2-3.8); Lymphocytes Percent Auto 36.1 % (20.5-60.0); Mean Corpuscular HGB Conc 32.7 g/dL (29.9-35.2); Mean Corpuscular Volume 94.9 fL (81.0-99.0); Monocytes Absolute Auto 0.7 10^3/uL (0.3-0.8); Monocytes Percent Auto 10.3 % (1.7-12.0); Neutrophils Absolute Auto 3.7 10^3/uL (1.4-6.5); Neutrophils Percent Auto 51.2 % (43.0-75.0); Platelet Count 351 10^3/uL (150-450); Red Cell Distribution Width 13.7 % (11.0-15.0); White Blood Count 7.2 10^3/uL (4.0-11.0)
[2025-03-29] MEDS: LIDOCAINE 5% PATCH 1 PATCH TOPICAL (21:10)
[2025-03-29] MEDS: ORPHENADRINE 60 MG/2 ML VIAL IM (21:11)
[2025-03-29] MEDS: KETOROLAC TROMETHAMINE 60 MG/2 ML VIAL IM (21:11)
[2025-03-29 21:18] LABS: Anion Gap 11.1; BUN Creatinine Ratio 10.6; Calcium 8.5 mg/dL (8.5-10.1); Carbon Dioxide 29.8 mmol/L (21.0-32.0); Chloride 108 mmol/L (98-107); Estimated GFR (African America >60 (>=60 mL/min/1.73m^2); Estimated GFR (Non-African Ame >60 (>=60 mL/min/1.73m^2); Glucose 112 mg/dL (74-106); Potassium 3.9 mmol/L (3.5-5.1); Sodium 145 mmol/L (136-145)
--- NOTE | 2025-03-29 21:20 | PC.NURSE ---
Patient states she is having swelling to bilateral lower extremities, that they are painful to touch and painful with ambulation. There is no observable swelling on assessment, pulses are strong, no observable discoloration or warmth. she states the swelling goes all the way up to her hips, and that she has a bulging disc at L5-S1, and she has brenda in her back. When i go into the room to medicate her, she states that she forgot to mention to Cynthia HUDSON that she has been having difficulty urinating since this morning.
[2025-03-29] MEDS: ACETAMINOPHEN 500 MG TABLET 1000 MG PO (22:13)
[2025-03-29] MEDS: DEXAMETHASONE SOD PHOS 10 MG/ML VIAL IM (22:13)
== END 2025-03-29 22:46 | disposition home or self-care (01) ==
PROVIDERS: Nurse Practitioner Family; Emergency Provider Student in an Organized Health Care Education/Training Program; PCP Nurse Practitioner Family
DX: M54.50 Low back pain, unspecified (principal); M79.605 Pain in left leg; M79.604 Pain in right leg; F11.20 Opioid dependence, uncomplicated; F17.200 Nicotine dependence, unspecified, uncomplicated; G89.29 Other chronic pain
CPT/HCPCS: 36415; 80048; 83880; 85025; 96372; 99284; J1100; J1885; J2360

== ENCOUNTER 2025-04-17 13:45 | Emergency (ER) | payer OTHER, SELFPAY ==
--- OUTSIDE RECORDS SUMMARY | 2025-03-13 09:00 | XMS_ITS ---
Author Organization [facility] in [place] Address [address] [place] [address] Care Team Providers Care Vice President Of Advertising Name Role Phone Jolie Mena Primary Care Provider Allergies Allergen (clinical drug ingredient) Drug/Non Drug Allergy documented on EMR Reaction Allergy Type Onset Date Status amoxicillin Amoxicillin rash/ throat swelling Drug Allergy Active tramadol traMADol rash/throat swelling Drug Allergy Active Reason For Referral Reason sciatica Diagnosis 1 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) Referral Organization [facility] Medicine Referring Provider First Name Jolie Referring Provider Last Name Trina Referring Provider Speciality Family Med jonathanne Referred Provider Tiffanie Bose Referred Provider Specialty Orthopedic S urgery Referral Priority Routine REASON FOR VISIT CAR CHANGER-Has not had a family care doctor in years per patient, Was in the hospital last week for herniated L5-S1- causing issues, Back in the hospital 2 days ago- neck issues, arm swelling, numbness, Whenlaying down at night her body twitching, forcefully, Chest Pains off and on- has had episode of unresponsive (January) and was taken by squad- they did recommend a stress test, Johnny Reed from the hospital- patient said she isn't concerned about keeping that medication, Med list updated from bag of meds patient brought in with her Medications Medication SIG (Take, Route, Frequency, Duration) Notes Start Date End Date Status hydrOXYzine Pamoate 50 MG 1 capsule Oral ly three times daily PRN 03/13/2025 Active Cyclobenzaprine HCl 10 MG 1 tablet Orall y three times daily PRN 03/13/2025 Not-Taking Pregabalin 75 MG 1 capsule Orally twice daily 03/13/2025 Active Methocarbamol 750 MG 1 tablet Orally river ry 6 hours PRN 03/13/2025 Active Buprenorphine HCl-Naloxone HCl 8-2 MG 3 tablet under the tongue and allow to dissolve Sublingual every morning 03/13/2025 Active Vitamin D3 50 MCG (1999 UT) 1 capsule Or ally Once a day 03/13/2025 Active Sertraline HCl 50 MG 1 tablet Orally Onc e a day 03/13/2025 Active Aspirin Adult Low Dose 81 MG 1 tablet Orally Once a day Active Social History Tobacco Use: Social History Observation Description Date Details (start date - stop date) Current Smoker 03/05/1998 - NA Tobacco Control (Standard) Question Answer Notes Tobacco use: Current smoker When did you start smoking? 03/05/1998 How often do you smoke cigarettes? Every day How many cigarettes a day do you smoke? 6-10 Additional Findings: Tobacco user Light cigarett e smoker (1-9 cigs/day) AUDIT-C (Standard) Question Answer Notes Did you have a drink containing alcohol in the p ast year? No Points 0 Interpretation Negative Problems Problem Type SNOMED Code ICD Code Onset Dates Problem Status W/U Status Risk Notes Problem Lumbago with sciatica (808859522) 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) Active confirmed Problem Arthritis (9255500) Arthritis (M19.90) Active confirmed Problem Anxiety (79724679) Anxiety (F41.9) Active confirmed Vital Signs Blood pressure systolic 106 mm Hg 03/13/20 25 Blood pressure diastolic 88 mm Hg 025 Height 69 in 03/13/2025 Weight 144.8 lbs 03/13/2025 BMI 21.38 kg/m2 03/13/2025 Procedures Procedure Date Ordered Date Performed Result Body Sit e CARDIO Stress Test - Treadmill Exercise 03/13/2025 N/A Encounters Encounter Location Date Provider Diagnosis [facility] [address] [place] [address] 03/13/2025 Jolie Trina Intermittent chest pain R07.9 and Sciatica associated with disorder of lumbar spine M53.9 Assessments Encounter Date Diagnosis (ICD Code) Assessment Notes Treatment Notes Treatment Clinical Notes Section Notes 03/13/2025 Intermittent chest pain (ICD-10 - R07.9) 03/13/2025 Sciatica associated with disorder of lumbar spine (ICD-10 - M53.9) referral to neurosurg recent hospital stay 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 Plan Of Treatment Treatment Notes Assessment Notes Sciatica associated with dis order of lumbar spine referral to neurosurg recent hospital stay 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 Pending Test Test Name Order Date CARDIO Stress Test - Treadmill Exercise 03/13/2025 Referrals Referral Date Details 03/13/2025 03/13/2025, sciatica , Selvon Juice Next Appt Details Follow Up: prn, Reason: Progress Notes * Michelle BARRETOB: 3 (39 yo F)Acc No.[id number]:03/13/2025 New Patient Patient: Barbara BECKHAM Provider: Mack Mena ([facility]), 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 CAR CHANGER-Has not had a family care doctor in years per patient. 2. Was in the hospital last week for herniated L5-S1- causing issues. 3. Back in the hospital 2 days ago- neck issues, arm swelling, numbness. 4. When laying down at night her body twitching, forcefully. 5. Chest Pains off and on- has had episode of unresponsive (January) and was taken by squad- they did recommend a stress test. 6. Has Lysrinia from the hospital- patient said she isn't concerned about keeping that medication. 7. Med list updated from bag of meds patient brought in with her. * HPI: G eneral: DDD 10 years ago first neck sx, than 7 years ago 2nd surgery recent hospital stay checked for ASHLEY was having urinary retention back pain found UTI, treated neck bothering her recently back pain L5 S1 -MRI sciatica both legs to feet refer to neurosurg right arm numbness and tingling, swelling recently too since neck started bothering intemittent chest pain sometimes lasts all day , heavy family hx heart attack, strokes treadmill stress test COPD albuterol, spiriva. D epression Screening: PHQ-2 (2015 Edition) L ittle interest or pleasure in doing things??Not at all F eeling down, depressed, or hopeless? S everal days T otal Score 1 * ROS: G eneral/Constitutional: Fever d enies. H eadache d enies. W eight loss?denies. O phthalmologic: Discharge d enies. E ye Pain d enies. I tching and redness d enies. E NT: Nasal discharge d enies. N alvarez congestion d enies.?Sore throat d enies. C ardiovascular: Chest tightness/ heavy pressure d enies. R apid heart rate d enies. S welling of extremities d enies. C hest pain d enies. ? R espiratory: Productive cough d enies. C hest pain i ntermittent. C ough d enies. S hortness of breath d enies. W heezing d enies. ? G astrointestinal: Abdominal pain d enies. C onstipation d enies. D ecreased appetite d enies. D iarrhea d enies. N ausea d enies. V omiting?denies. G enitourinary: Urinary incontinence d enies. P ainful urination d enies. M usculoskeletal: Back pain a dmits bilateral sciatica to feet. N sabrina pain a dmits , numbness into right arm. M uscle aches d enies. S kin: Rash d enies. S kin lesion(s) d enies. ? * Active Problem List F41.9 Anxiety Modified On:03/13/2025W/U Status:confirmed M19.90 Arthritis Modified On:03/13/2025/U Status:confirmed M53.9 Sciatica associated with disorder of lumbar spine Modified On:03/13/2025 Status:confirmed * Medical History: A rthritis, Anxiety, Depression. * Surgical History: N sabrina Fusion , Interventional Spine injections , Knee arthroscopy . * Hospitalization/Major Diagno stic Procedure: L umbar Spine pain 03/06/2025. * Family History: F ather: alive, Hypercholesterolemia, Mental Illness, Alcoholism, diagnosed with Unspecified heart disease, Unspecified essential hypertension. M other: alive, Hypercholesterolemia, Heart Attack, Skin Cancer, Asthma, COPD, diagnosed with Diabetes mellitus without mention of complication, type II or unspecified type, not stated as uncontrolled, Unspecified essential hypertension, Unspecified heart disease, Other malignant neoplasm of unspecified site. B rother(s): alive, Scoliosis, Degenerative Disc Disease. M atemalcom Grandmother: Stomach Cancer, Alzheimers, diagnosed with Other malignant neoplasm of unspecified site. P aternal Grandmother: diagnosed with Other malignant neoplasm of unspecified site. 1 brother(s) . . * Social History: T obacco Use: T obacco Control (Standard) T obacco use: C urrent smoker W hen did you start smoking? 0 03/05/1998 H ow often do you smoke cigarettes? E very day H ow many cigarettes a day do you smoke? 6 -10 A dditional Findings: Tobacco user L ight cigarette smoker (1-9 cigs/day) D rug/Alcohol: A MESHA-C (Standard) D id you have a drink containing alcohol in the past year? N o P oints 0 I nterpretation N egative * Medications: T aking Aspirin Adult Low Dose(Aspirin) 81 MG Tablet Delayed Release 1 tablet Orally Once a day , Taking Buprenorphine HCl-Naloxone HCl 8-2 MG Tablet Sublingual 3 tablet under the tongue and allow to dissolve Sublingual every morning , Taking hydrOXYzine Pamoate 50 MG Capsule 1 capsule Orally three times daily PRN , Taking Methocarbamol 750 MG Tablet 1 tablet Orally every 6 hours PRN , Taking Pregabalin 75 MG Capsule 1 capsule Orally twice daily , Taking Sertraline HCl 50 MG Tablet 1 tablet Orally Once a day , Taking Vitamin D3 50 MCG (1999 UT) Capsule 1 capsule Orally Once a day , Not-Taking/PRN Cyclobenzaprine HCl 10 MG Tablet 1 tablet Orally three times daily PRN , Medication List reviewed and reconciled with the patient * Allergies: A moxicillin: rash/ throat swelling - Allergy, traMADol: rash/throat swelling - Allergy. Objective: * Vitals: W t:144.8lbs, Ht: 69 in, BP:106/88mm Hg, BMI:21.38Index, Ht-cm: 175.26 cm, Wt-k.68 kg. * Examination: G eneral Examinations: GENERAL APPEARANCE: a lert and oriented, i n no acute distress. EYES: c onjunctiva normal, sclera non-icteric. NOSE: n ormal external appearance. LUNGS: c lear anteriorly and posteriorly. CARDIO: r egular rate and rhythm, S1, S2 normal. ABDOMEN: s oft, nontender. MUSCULOSKELETAL: d ecreased ROM due to back and neck pain.? SKIN: w arm and dry. Assessment: * Assessment: 1. I ntermittent chest pain - R07.9 (Primary) 2 . S ciatica associated with disorder of lumbar spine - M53.9 Plan: * Treatment: 2. S ciatica associated with disorder of lumbar spine Notes: referral to neurosurg recent hospital stay 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 Referral To:[facility] Orthopedic Surgery Reason:sciatica * Follow Up: p rn * * Electronically signed by Tonia Mena , CHARLY, FINANCIAL SERVICES SPECIALIST.INTERNATIONAL TRADE TEACHER.[id number] on 03/17/2025 at 08:11 AM EDT Sign off status: Completed Visit Status: C HK (Check Out) true * Provider: Mack Mena ([facility]), INTERNATIONAL TRADE TEACHER Date: 0 03/13/2025 Generated for Krishna crowder/Zahra/Magalyitting on: 0 04/17/2025 01:50 PM EDT History and Physical Notes * HPI (History of Present Illness) Category Sub-Category Detail Notes Category Not es General DDD 10 years ago first neck sx, than 7 years ago 2nd surgery recent hospital stay checked for ASHLEY was having urinary retention back pain found UTI, treated neck bothering her recently back pain L5 S1 -MRI sciatica both legs to feet refer to neurosurg right arm numbness and tingling, swelling recently too since neck started bothering intemittent chest pain sometimes lasts all day , heavy family hx heart attack, strokes treadmill stress test COPD albuterol, spiriva Depression Screening PHQ-2 (2015 Edition) Little interest or pleasure in doing things?: Not at all Feeling down, depressed, or hopeless?: S everal days Total Score: 1 Examination Category Sub-Category Detail Notes Category Not es General Examinations GENERAL APPEARANCE: alert a nd oriented, in no acute distress EYES: conjunctiva normal, sclera non-icteric EARS: NOSE: normal external appe arance THROAT: CARDIO: regular rate and rhy thm, S1, S2 normal LUNGS: clear anteriorly and posteriorly ABDOMEN: soft, nontender SKIN: warm and dry BACK: MUSCULOSKELETAL: decreased ROM due to back and neck pain LYMPH NODES: Consultation Request Notes Referral Date Referring Provider Referred Provider Not es 03/13/2025 Jolie Mena Selvon sciatica
--- OUTSIDE RECORDS SUMMARY | 2025-03-31 06:09 | XMS_ITS ---
Author Organization [facility] in [place] Address [address] [place] [address] Care Team Providers Care Light Rail Transit Operator Name Role Phone Jolie Mena Primary Care Provider REASON FOR VISIT ordered labs Encounters Encounter Location Date Provider Diagnosis [facility] [address] [place] [address] 03/31/2025 Jolie Mena Wellness examination Z00.00 Assessments [...] * Michelle BARRETOB: 3 (39 yo F)Acc No.[id number]:03/31/2025 Patient: Barbara BECKHAM :1985 A ge:39 Y S ex:Female Address:[address], [address], [place] [address] Subjective: * Chief Complaints: * O rdered labs * Medical History: * Surgical History: * Hospitalization/Major Diagno stic Procedure: * Medications: Objective: * Vitals: * Physical Examination: Assessment: * Assessment: 1. W [facility] examination - Z00.00 (Primary) Plan: * Treatment: * Procedure Codes: * true * Date: Generated for Krishna crowder/Zahra/Radha on: 0 04/17/2025 01:50 PM EDT
--- OUTSIDE RECORDS SUMMARY | 2025-04-10 06:10 | XMS_ITS ---
Author Organization [facility] Address [address] [place] [place] [address] Care Team Providers Care Nursing Tech Name Role Phone Jolie Mena Primary Care Provider Tiffanie Velasco Unavailable [phone] Tanya Brownle Unavailable [phone] REASON FOR VISIT LUMBAR PAIN, Low Back Pain Problems Problem Type SNOMED Code ICD Code Onset Dates Problem Status W/U Status Risk Notes Problem 92651440 Degeneration of intervertebral disc of lumbosacral region with discogenic back pain and lower extremity pain (M51.372) Active confirmed Problem 93390717 Other intervertebral disc displacement, 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) Active confirmed Encounters Encounter Location Date Provider Diagnosis [facility] Office [address] [place] [address] [place] [address] 04/10/2025 Bridgett Brown Degeneration of intervertebral disc of lumbosacral region with discogenic back pain and lower extremity pain M51.372 and Other intervertebral disc displacement, lumbosacral region M51.27 Assessments Encounter Date Diagnosis (ICD Code) Assessment Notes Treatment Notes Treatment Clinical Notes Section Notes 04/10/2025 Degeneration of intervertebral disc of lumbosacral region with discogenic back pain and lower extremity pain (ICD-10 - M51.372) 1. L5-S1 degenerative disc disease with disc herniation and radiculopathy 04/10/2025 Other intervertebral disc displacement, lumbosacral region (ICD-10 - M51.27) 1. L5-S1 degenerative disc disease with disc herniation and radiculopathy 04/10/2025 Other Plan established by Dr. Julien. Patient evaluated by myself and Dr. Julien today. We did review patient's MRI results with her and will get her into physical therapy as she is not tried this in a long time since living in [place]. If her pain persists we did discuss L5-S1 decompression and posterior fusion. It was discussed with patient that fusion is necessary due to the fact that total facetecetomy's would need to be performed In order to free up the foraminal stenosis. This would lead to instability requiring a fusion. Surgical risks and benefits were discussed. Risks include, but are not limited to paralysis, infection, dural tear, nerve root injury, nonunion, etc. Patient would like to proceed with surgical intervention. Patient will call if her pain and symptoms persist after physical therapy. We will plan on scheduling her for surgery if this is the case. The patient is very much in agreement with the treatment and/or diagnostic plan set forth and all questions were answered to the patient's satisfaction. Thanks once again. If we can be of further service to your patients with disorders of the spine, cervical, thoracic, or lumbar, please do not hesitate to contact Dr. Julien. 1. L5-S1 degenerative disc disease with disc herniation and radiculopathy Plan Of Treatment Treatment Notes Assessment Notes Other Plan established by Dr. Julien. Patient evaluated by myself and Dr. Julien today. We did review patient's MRI results with her and will get her into physical therapy as she is not tried this in a long time since living in [place]. If her pain persists we did discuss L5-S1 decompression and posterior fusion. It was discussed with patient that fusion is necessary due to the fact that total facetecetomy's would need to be performed In order to free up the foraminal stenosis. This would lead to instability requiring a fusion. Surgical risks and benefits were discussed. Risks include, but are not limited to paralysis, infection, dural tear, nerve root injury, nonunion, etc. Patient would like to proceed with surgical intervention. Patient will call if her pain and symptoms persist after physical therapy. We will plan on scheduling her for surgery if this is the case. The patient is very much in agreement with the treatment and/or diagnostic plan set forth and all questions were answered to the patient's satisfaction. Thanks once again. If we can be of further service to your patients with disorders of the spine, cervical, thoracic, or lumbar, please do not hesitate to contact Dr. Julien. Pending Test Test Name Order Date Lumbar spine, 4v flex ext - 26563 2024 SFS - Lumbar Spine PT Order, Isometrics & Strenghening w/Modalities as needed, 2-3 times per week for 6 weeks 04/10/2025 Next Appt Details Follow Up: SCHEDULE SURGERY IF PT DOES NOT HELP, Reason: Progress Notes * ABIEL AMBROCIOADOB: 3 (39 yo F)Acc No.[id number]:04/10/2025 Patient: DONALDO BECKHAM Provider: EBCCA Smith :1985 A ge:39 Y S ex:Female Date:04/10/2025 Address:[address] [facility], [address] Pcp:Jolie Mena Subjective: * Chief Complaints: * L UMBAR PAINLow Back Pain * HPI: G eneral Follow Up Information: Dictated by Bridgett Brown PA-C, Patient is a 39-year-old female who was referred here after recent hospitalization at the [facility] for intractable low back and bilateral lower extremity pain and paresthesias. An MRI of the lumbar spine was completed at the [facility]. Patient states that she has had low back pain for about 15 years and was in pain management in [place] prior to moving here. 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 She is on Suboxone but is currently weaning off of this. 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 She is having more pain with walking longer distances. She states that her whole bilateral lower extremities down to her ankles have pain/numbness/tingling. Current VAS score of 8 out of 10. Percentagewise 75% of her pain is in her back and 25% is equally in both of her legs. She has tried anti-inflammatories, narcotics, ice, physical therapy, and epidural steroid injections that did not provide resolution or long-term relief of her pain. She denies any bowel or bladder incontinence/retention or saddle anesthesia. * ROS: G enitourinary: Denies I ncontinence. * Medical History: * Surgical History: N o Surgical History documented. * Family History: N o Family History documented.. * Medications: N one * Allergies: n o[Allergies Verified] Objective: * Vitals: * Examination: G eneral examination: O n examination, the patient is well-developed, well-nourished, well-groomed, alert and oriented x3, normal mood. Patient ambulates with antalgic gait, not utilizing an ambulatory aid. Limited lumbar ROM. Midline tender over the lumbar spine and bilateral SI joints. 5/5 muscle strength bilateral lower extremities. Sensory intact lower extremities. Negative clonus bilaterally. Positive SLR bilaterally, worse on the right. 2+ and symmetric deep tendon reflexes bilateral lower extremities. X -ray Imaging Studies: 4 view x-rays of the lumbar spine AP/lateral/flexion/extension were taken in office today and reviewed and interpreted by myself as negative for fracture or spondylolisthesis. Degenerative disc disease most notable at L5-S1. M RI Imaging Studies: [facility] lumbar spine without contrast was reviewed from the [facility] from 03/05/2025 Impression L5-S1 disc protrusion affecting the left S1 transversing nerve root. Assessment: * Assessment: 1. D egeneration of intervertebral disc of lumbosacral region with discogenic back pain and lower extremity pain - M51.372 (Primary) 2 . O ther intervertebral disc displacement, lumbosacral region - M51.27 1. L5-S1 degenerative disc d isease with disc herniation and radiculopathy Plan: * Treatment: * Procedure Codes: 7 2110 X-ray Lumbar Spine, 5 view complete * Follow Up: S CHEDULE SURGERY IF PT DOES NOT HELP Forms: * Images: * Sign off status: Completed true * Provider: BECCA Smith Date: 0 04/10/2025 Generated for Krishna crowder/Zahra/Magalyitting on: 0 04/17/2025 01:50 PM EDT History and Physical Notes * HPI (History of Present Illness) Category Sub-Category Detail Notes Category Not es General Follow Up Information Dictated by Bridgett Brown PA-C, Patient is a 39-year-old female who was referred here after recent hospitalization at the [facility] for intractable low back and bilateral lower extremity pain and paresthesias. An MRI of the lumbar spine was completed at the [facility]. Patient states that she has had low back pain for about 15 years and was in pain management in [place] prior to moving here. 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 She is on Suboxone but is currently weaning off of this. 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 She is having more pain with walking longer distances. She states that her whole bilateral lower extremities down to her ankles have pain/numbness/tingling. Current VAS score of 8 out of 10. Percentagewise 75% of her pain is in her back and 25% is equally in both of her legs. She has tried anti-inflammatories, narcotics, ice, physical therapy, and epidural steroid injections that did not provide resolution or long-term relief of her pain. She denies any bowel or bladder incontinence/retention or saddle anesthesia. Examination Category Sub-Category Detail Notes Category Not es General examination On exami nation, the patient is well-developed, well-nourished, well-groomed, alert and oriented x3, normal mood. Patient ambulates with antalgic gait, not utilizing an ambulatory aid. Limited lumbar ROM. Midline tender over the lumbar spine and bilateral SI joints. 5/5 muscle strength bilateral lower extremities. Sensory intact lower extremities. Negative clonus bilaterally. Positive SLR bilaterally, worse on the right. 2+ and symmetric deep tendon reflexes bilateral lower extremities. X-ray Imaging Studies 4 view x-rays of the lumbar spine AP/lateral/flexion/extension were taken in office today and reviewed and interpreted by myself as negative for fracture or spondylolisthesis. Degenerative disc disease most notable at L5-S1. MRI Imaging Studies MRI lumbar spine without contrast was reviewed from the [facility] from 03/05/2025 Impression L5-S1 disc protrusion affecting the left S1 transversing nerve root.
--- OUTSIDE RECORDS SUMMARY | 2025-04-17 13:50 | XMS_ITS | Patient Health Record ---
Author Organization [facility] Address [address] [place] [address] Care Team Providers Care Composition Roofer Name Role Phone Jolie Mena [facility] Un[facility] [phone] Bridgett Brown Unavailable [phone] Reason For Referral Reason sciatica Diagnosis 1 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) Referred Organization [facility] Referred Provider Tiffanie Bose Referred Address [address] [place],[address], Referred Provider Specialty Orthopedic S urgery General Notes Fern Yanez 10/2025 07:40:40 AM >LUMBAR PAIN, LVM/SENT TEXT REF/Pedro [facility] (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) Active confirmed Problem 57384120 Degeneration of intervertebral disc of lumbosacral region with discogenic back pain and lower extremity pain (M51.372) Active confirmed Encounters Encounter Location Date Provider Diagnosis [facility] Office [address] [place] [address] [place] [address] 04/10/2025 Bridgett Brown Degeneration of intervertebral disc of lumbosacral region with discogenic back pain and lower extremity pain M51.372 and Other intervertebral disc displacement, lumbosacral region M51.27 Assessments Encounter Date Diagnosis (ICD Code) Assessment Notes Treatment Notes Treatment Clinical Notes Section Notes 04/10/2025 Other intervertebral disc displacement, lumbosacral region (ICD-10 - M51.27) 1. L5-S1 degenerative disc disease with disc herniation and radiculopathy 04/10/2025 Degeneration of intervertebral disc of lumbosacral [...] in a long time since living in [place]. If her pain persists we did discuss [...] disc herniation and radiculopathy Plan Of Treatment Pending Test Test Name Order Date Lumbar spine, 4v flex ext - 99786 2024 SFS - Lumbar Spine PT Order, Isometrics & Strenghening w/Modalities as needed, 2-3 times per week for 6 weeks 04/10/2025 Insurance Providers Payer Name Payer Address Payer Phone Subscriber Number Group Number Insured Name Patient Relationship to Insured Coverage Start Date Coverage End Date Medicaid [place] [address] [address] [place] [address] [id number] DONALDO AMBROCIO Self - patient is the insured 5
--- OUTSIDE RECORDS SUMMARY | 2025-04-17 13:50 | XMS_ITS | Patient Health Record ---
Author Organization [facility] in [place] Address [address] [place] [address] Care Team Providers Care Nursing Program Chair Name Role Phone Jolie Mena Primary Care Provider Allergies Allergen (clinical drug ingredient) Drug/Non Drug Allergy documented on EMR Reaction Allergy Type Onset Date Status amoxicillin Amoxicillin rash/ throat swelling Drug Allergy Active tramadol traMADol rash/throat swelling Drug Allergy Active Results Component Value Reference Range Notes PROF CHEM 8 (BAS METB) Reviewed date:03/31/2025 10:08:09 AM Interpretation: Performing Lab: Notes/Report: [facility] , Sodium 145 136-145 mmol/L Potassium 3.9 3.5-5.1 mmol/L Chloride 108 98-107 mmol/L Carbon Dioxide 29.8 21.0-32.0 mmol/L Anion Gap 11.1 Glucose 112 74-106 mg/dL Blood Urea Nitrogen 10.0 7.0-18.0 mg/dL Creatinine 0.94 0.55-1.02 mg/dL Estimated GFR ( Kellen >60 >=60 mL/mi n/1.73m 2 Estimated GFR (Non- Anushka >60 >=60 mL/mi n/1.73m 2 BUN Creatinine Ratio 10.6 Calcium 8.5 8.5-10.1 mg/dL Performing Lab: see note ML - [facility] LB CBC AUTO DIFF Reviewed date:03/31/2025 10:08:09 AM Interpretation: Performing Lab: Notes/Report: [facility] , White Blood Count 7.2 4.0-11.0 10 3/uL Red Blood Count 3.90 4.20-5.40 10 6/uL Hemoglobin 12.1 12.0-16.0 g/dL Hematocrit 37.0 36.0-48.0 % Mean Corpuscular Volume 94.9 81.0-99.0 fL Mean Corpuscular Hemoglobin 31.0 26.7-34.0 pg Mean Corpuscular HGB Conc 32.7 29.9-35.2 g/dL Red Cell Distribution Width 13.7 11.0-15.0 % Platelet Count 351 150-450 10 3/uL Mean Platelet Volume 9.0 9.5-13.5 fL Neutrophils Percent Auto 51.2 43.0-75.0 % Lymphocytes Percent Auto 36.1 20.5-60.0 % Monocytes Percent Auto 10.3 1.7-12.0 % Eosinophils Percent Auto 1.7 0.9-7.0 % Basophils Percent Auto 0.6 0.2-2.0 % Immature Granulocytes Pct Auto 0.1 0.0-0.5 % Neutrophils Absolute Auto 3.7 1.4-6.5 10 3/uL Lymphocytes Absolute Auto 2.6 1.2-3.8 10 3/uL Monocytes Absolute Auto 0.7 0.3-0.8 10 3/uL Eosinophils Absolute Auto 0.1 0.0-0.7 10 3/uL Basophils Absolute Auto 0.0 0.0-0.1 10 3/uL Immature Granulocytes Abs Auto 0.01 0.00-0.03 10 3/uL Performing Lab: see note ML - [facility] LB BNP Reviewed date:03/31/2025 10:08:09 AM Interpretation: Performing Lab: Notes/Report: [facility] , NT Pro B Type Natriuretic Pept 31.0 <=450.0 pg /mL Performing Lab: see note ML - [facility] LB Reason For Referral Reason sciatica Diagnosis 1 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) Referral Organization [facility] Referring Provider First Name Jolie Referring Provider Last Name Trina Referring Provider Speciality [facility] roel Referred Provider Tiffanie Bose Referred Provider Specialty Orthopedic S urgery Referral Priority Routine Medications Medication SIG (Take, Route, Frequency, Duration) Notes Start Date End Date Status Vitamin D3 50 MCG (1999) 1 capsule Or ally Once a day 03/13/2025 Active Sertraline HCl 50 MG 1 tablet Orally Onc e a day 03/13/2025 Active hydrOXYzine Pamoate 50 MG 1 capsule Oral [...] to dissolve Sublingual every morning 03/13/2025 Active Aspirin Adult Low Dose 81 [...] Problem Status W/U Status Risk Notes Problem Anxiety (68361190) Anxiety (F41.9) Active confirmed Problem Arthritis (6741854) Arthritis (M19.90) Active confirmed Problem Lumbago with sciatica (348120523) 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) Active confirmed Vital Signs Blood pressure diastolic 88 mm Hg 03/13/2025 Height 69 in 03/13/2025 Blood pressure systolic 106 mm Hg 03/13/2025 Weight 144.8 lbs 03/13/2025 BMI 21.38 kg/m2 03/13/2025 Procedures Procedure Date Ordered Date Performed Result Body Sit e CARDIO Stress Test - Treadmill Exercise 03/13/2025 N/A Encounters Encounter Location Date Provider Diagnosis [facility] [address] [place] [address] 03/13/2025 Jolie Trina Intermittent chest pain R07.9 and Sciatica associated with disorder of lumbar spine M53.9 [facility] [address] [place] [address] 03/31/2025 Jolie Mena Wellness examination Z00.00 Assessments Encounter Date Diagnosis (ICD Code) Assessment Notes Treatment Notes Treatment Clinical Notes Section Notes 03/13/2025 Intermittent chest pain (ICD-10 - R07.9) 03/13/2025 Sciatica associated with disorder of lumbar spine (ICD-10 - M53.9) referral to neurosurg recent hospital stay 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 03/31/2025 Wellness examination (ICD-10 - Z00.00) Plan Of Treatment Pending Test Test Name Order Date HEMOGLOBIN A1C (GLYCO) 03/31/2025 IRON, TOTAL 03/31/2025 LIPID PANEL (CHOL/TRIG/HDL/LDL) 03/31/20 25 VITAMIN D, 25 LEVEL (TOTAL) 03/31/2025 CARDIO Stress Test - Treadmill Exercise 03/13/2025 Insulin Level 03/31/2025 THYROID PANEL (T4/TSH/FREE T3) CMP (COMP MET AMARO) w/eGFR CKD-EPI 2024 CBC WITH DIFF 03/31/2025 Medical (General) History Medical History History ICD Code Arthritis M19.90 Anxiety F41.9 Depression F32.A Surgical History Surgery Date(Month/Year) Knee arthroscopy Interventional Spine injections Neck Fusion Hospitalization History Reason Date(Month/Year) Lumbar Spine pain 03/06/2025
[2025-04-17 14:02] VITALS: BP 135/86; PULSE 105; TEMP 37; O2SAT 100; BMI 21.0
[2025-04-17 15:29] LABS: HCG Qualitative Urine* NEGATIVE (NEGATIVE); Internal Control Within Normal Limits
[2025-04-17] MEDS: METHYLPREDNISOLONE SOD SUCC PF 40 MG/ML VIAL IM (15:35)
[2025-04-17] MEDS: KETOROLAC TROMETHAMINE 30 MG/ML VIAL IM (15:35)
[2025-04-17] MEDS: ORPHENADRINE 60 MG/2 ML VIAL IM (15:36)
[2025-04-17 17:19] VITALS: BP 126/79; PULSE 70; O2SAT 98
--- NOTE | 2025-04-17 17:49 | ED.EXTPRO1 ---
HPI - Extremity Problem General Chief complaint: Extremity Problem, Nontraumatic Stated complaint: LOSING BLADDER FUNCTION, NUMBNESS IN LEGS, FALLS Time Seen by Provider: 04/17/25 14:48 Source: patient Mode of arrival: walk-in History of Present Illness HPI Narrative: 39-year-old female with history of chronic back pain is coming to the ER after she noticed some incontinence for the last 24 hours, she denies any new fall or any new complaint but she has been having this pain for very long time, and that the pain is mostly goes to the left side and is associated with no numbness or tingling but she have incontinence The patient was able to ambulate here and moves with no difficulty Patient was evaluated by her neurosurgeon and he wanted her to have a 6 weeks of physical therapy before the surgery Related Data Home Medications ?Medication ?Instructions ?Recorded ?Confirmed hydroxyzine pamoate 50 mg capsule 50 mg PO TID PRN anxiety 03/04/25 04/17/25 naloxone 4 mg/actuation nasal spray 1 spray intranasal Q3M PRN opioid 03/04/25 04/17/25 overdose clonidine HCl 0.1 mg tablet 0.1 mg PO DAILY 04/17/25 04/17/25 trazodone 50 mg tablet 50 mg PO QPM 04/17/25 04/17/25 Previous Rx's ?Medication ?Instructions ?Recorded methocarbamol 750 mg tablet 750 mg PO Q6H PRN muscle spasm #30 03/05/25 tabs pregabalin 75 mg capsule 75 mg PO BID #60 caps 03/05/25 meloxicam 15 mg tablet 15 mg PO DAILY PRN pain #10 tabs 04/17/25 Allergies Allergy/AdvReac Type Severity Reaction Status Date / Time amoxicillin Allergy Severe Anaphylaxis Verified 03/29/25 20:28 tramadol Allergy Severe Anaphylaxis Verified 03/29/25 20:28 hydroxyzine (From Atarax) Allergy Intermediate Vomiting Verified 03/29/25 20:28 Review of Systems ROS Status of ROS 10 or more systems reviewed and unremarkable except as noted in history and below [facility] Medical History (Updated 04/17/25 @ 17:11 by Juanita Carbone MD) Herniated nucleus pulposus, L5-S1, left ?M51.27 - Other intervertebral disc displacement, lumbosacral region (ICD-10) Lumbar spinal stenosis ?M48.061 - Spinal stenosis, lumbar region without neurogenic claudication (ICD-10) Hx of drug abuse ?F19.11 - Other psychoactive substance abuse, in remission (ICD-10) Atypical chest pain ?R07.89 - Other chest pain (ICD-10) Chest pain ?R07.9 - Chest pain, unspecified (ICD-10) Hyperlipemia ?E78.5 - Hyperlipidemia, unspecified (ICD-10) PTSD (post-traumatic stress disorder) ?F43.10 - Post-traumatic stress disorder, unspecified (ICD-10) Bipolar 1 disorder ?F31.9 - Bipolar disorder, unspecified (ICD-10) HTN (hypertension) ?I10 - Essential (primary) hypertension (ICD-10) Degenerative disc disease COPD (chronic obstructive pulmonary disease) ?J44.9 - Chronic obstructive pulmonary disease, unspecified (ICD-10) Hx of renal calculi ?Z87.442 - Personal history of urinary calculi (ICD-10) Family History (Updated 03/05/25 @ 00:46 by Lisa Palomares RN) Grandmother Family history of CHF (congestive heart failure) Mother Family history of COPD (chronic obstructive pulmonary disease) Family history of cancer Family history of diabetes mellitus Family history of hypertension Family history of myocardial infarction Social History Within the past year, how often did you have a drink containing alcohol: never Score interpretation: A score less than 3 is consistent with normal alcohol consumption. Smoking status: Current every day smoker Non-prescribed substance use: former substance user Highest level of school completed/degree received: GED or equivalent Are you now , , , , never or living with a partner: In a typical week, how many times do you talk on the telephone with family, friends, or neighbors: 3 or more times per week How often do you get together with friends or relatives: 3 or more times per week Little interest or pleasure in doing things: not at all Feeling down, depressed, or hopeless: not at all Feel stressed/tense/nervous/anxious/difficulty sleeping: decline to answer Gender Identity: female Exam Narrative Exam Narrative: Nurses notes and vital signs reviewed and patient is not hypoxic. General: Well-appearing and in no apparent distress. Skin: Warm, dry, no pallor noted. No rash. Head: Normocephalic, atraumatic. Neck: Supple, non-tender. Eye: Pupils are equal, round and EOMI. No scleral icterus. Ears, Nose, Mouth, and Throat: TM are clear, no nasal mucosal hypertrophy. Oral mucosa is moist, no posterior oropharynx erythema, uvula is mid-line Cardiovascular: Regular Rate and Rhythm without murmur, gallop or rub. Respiratory: No accessory muscle use or respiratory distress. Lungs are clear to auscultation, no wheezing, rales or rhonchi Chest Wall: no tenderness Back: No midline thoracic or lumbar vertebral tenderness. No CVA tenderness, there is only tenderness palpation of the sacral area Musculoskeletal: normal ROM, no calf or popliteal tenderness, no lower extremity edema/swelling GI: Abdomen is soft, non-distended. Normal bowel sounds. No masses appreciated. No tenderness to palpation. No rebound, guarding, or rigidity noted. Neurological: A&O x4. No cranial nerve dysfunction observed. Constitutional Vital Signs, click to edit/add: Last Vital Signs Temp 98.6 F 04/17/25 14:02 Pulse 70 04/17/25 17:19 Resp 16 04/17/25 17:19 BP 126/79 04/17/25 17:19 Pulse Ox 98 04/17/25 17:19 O2 Del Method Room Air 04/17/25 17:19 Course Vital Signs Vital signs: Vital Signs Temperature 98.6 F 04/17/25 14:02 Pulse Rate 105 H 04/17/25 14:02 Respiratory Rate 18 04/17/25 14:02 Blood Pressure 135/86 04/17/25 14:02 Pulse Oximetry 100 04/17/25 14:02 Oxygen Delivery Method Room Air 04/17/25 14:02 Temperature 98.6 F 04/17/25 14:02 Pulse Rate 70 04/17/25 17:19 Respiratory Rate 16 04/17/25 17:19 Blood Pressure 126/79 04/17/25 17:19 Pulse Oximetry 98 04/17/25 17:19 Oxygen Delivery Method Room Air 04/17/25 17:19 MDM - Extremity (Nontraumatic) MDM Narrative Medical decision making narrative: The patient was able to ambulate in the ER with no difficulty although she did mention that she is not able to feel herself while walking The patient had a CAT scan in the ER of her lumbar spine showing no acute significant pathology that could explain her symptoms Bladder scan shows no urine retention And the patient did not provide us with a urine sample except for test and it was negative Right now the patient case was discussed with Dr. Lunsford who is the neurosurgeon taking care of the patient, the patient will follow-up with him as outpatient The results of the CAT scan discussed with him and right now he was just she had outpatient Patient was provided here in the ER with Toradol and she was discharged home with Mobic for pain The patient is to follow up with primary care physician in next 2-3 days or to return to the emergency department should any of the signs or symptoms worsen or new symptoms develop. The patient agrees with the following Diagnosis and Treatment plan and the patient will be discharged home. Lab Data Labs: Lab Results 04/17/25 Range/Units 15:20 Urine HCG, Qual Negative (NEGATIVE) Discharge Plan Discharge Chief Complaint: Extremity Problem, Nontraumatic Clinical Impression: Low back pain Patient Disposition: Home, Self-Care Time of Disposition Decision: 17:11 Condition: Good Mode of Transportation: Private Vehicle Prescriptions / Home Meds: New meloxicam 15 mg tablet 15 mg PO DAILY PRN (Reason: pain) Qty: 10 0RF No Action hydroxyzine pamoate 50 mg capsule 50 mg PO TID PRN (Reason: anxiety) naloxone 4 mg/actuation spray,non-aerosol 1 spray INTRANASAL Q3M PRN (Reason: opioid overdose) pregabalin 75 mg Capsule 75 mg PO BID Qty: 60 0RF methocarbamol 750 mg tablet 750 mg PO Q6H PRN (Reason: muscle spasm) Qty: 30 0RF clonidine HCl 0.1 mg tablet 0.1 mg PO DAILY trazodone 50 mg tablet 50 mg PO QPM Print Language: Bulgarian Instructions: Back Pain (ED) Referrals: Dr Reis [Other] - 1 week EUFEMIA HUGGINS [Primary Care Provider, Family Practice] - 1 week Discharge Date/Time: 04/17/25 17:19
== END 2025-04-17 17:19 | disposition home or self-care (01) ==
PROVIDERS: Emergency Provider Emergency Medicine; PCP Nurse Practitioner Family
DX: M54.50 Low back pain, unspecified (principal)
CPT/HCPCS: 72131; 84703; 96372; 99285; J1885; J2360; J2919

== ENCOUNTER 2025-04-21 09:23 | Emergency (ER) | payer OTHER, SELFPAY ==
[2025-04-21] VITALS (13 sets, daily range): BP systolic 117–125; BP diastolic 84–95; PULSE 81–106; TEMP 36.9; O2SAT 94–100; BMI 21.0
--- OUTSIDE RECORDS SUMMARY | 2025-04-21 09:31 | XMS_ITS | Clinical Summary ---
Author Organization [facility] Address [address] [place] [address] Care Team Providers Care Logistics Supervisor Name Role Phone Self, Self Primary Care Provider Unavailabl e Allergies Active Allergy Reactions Criticality Noted Date Comments Amoxicillin 11/14/2024 Tramadol 11/14/2024 Medications naloxone 4 MG/0.1MLIndicati ons:Opioid dependence in remission 1 spray by Nasal route once for 1 dose. [place] into the nose as directed. Call 911. If no response in 2 minutes use a new nasal spray in other nostril. Repeat until help arrives. 1 Each 5 Active Aspirin [address] tabletIndication s:Chest pain, unspecified type Take 1 tablet by mouth daily. 28 tablet 2 5 Active buprenorphine 8 mg/naloxone 2 mg (SUBOXONE) SL filmIndications: Opioid dependence in remission Place 3 strips under tongue Every morning. 84 strip 5 Active Sertraline 50 MG tabletIndication s:Current moderate episode of major depressive disorder, unspecified whether recurrent Take 1 tablet by mouth daily. 28 tablet 2 5 Active cholecalciferol 50 MCG (2000 UNIT) tabletIndication s:Current moderate episode of major depressive disorder, unspecified whether recurrent Take 1 tablet by mouth daily. 28 tablet 2 5 Active hydrOXYzine pamoate (Vistaril) 50 MG capsuleIndicatio ns:BRYCE (generalized anxiety disorder) Take 1 capsule by mouth 3 times daily as needed for Anxiety. 84 capsule 2 5 Active pregabalin 75 MG capsule Take 1 tablet by mouth 2 times daily. 5 Active Active Problems Problem Noted Date Diagnosed Date Opioid dependence in remission 11/14/2024 Stimulant use disorder 11/14/2024 Current moderate episode of major depressive dis order 11/14/2024 BRYCE (generalized anxiety disorder) 11/14/2024 Encounters Date Type Department Care Team Description 03/23/2025 11:30 AM EDT Telemedicine [facility] [address] [place] [address] Pedro Pablo Gibson DO Opioid dependence in remission (Primary Dx) 02/23/2025 11:30 AM EDT Telemedicine [facility] [address] [place] [address] Pedro Pablo Gibson DO Opioid dependence in remission; Current moderate episode of major depressive disorder, unspecified whether recurrent; BRYCE (generalized anxiety disorder) 01/26/2025 1:[address] [facility] [address] [place] [address] Pedro Pablo Gibson DO Chest pain, unspecified type (Primary Dx); Opioid dependence in remission; Periorbital swelling from Last 3 Months Social History Tobacco Use Types Packs/Day Years Used Date Smoking Tobacco: Every Day Cigarettes Smokeless Tobacco: Never Tobacco Cessation:Ready to Q uit: Not Asked; Counseling Given: Not Answered Alcohol Use Standard Drinks/Week Comments Not Currently 0 (1 standard drink = 0.6 oz pur e alcohol) Depression Answer Date Recorded PHQ-9 Total Score (Interpret ation of Total Score 1-4 = Minimal depression; 5-9 = Mild depression; 10-14 = Moderate depression; 15-19 = Moderately severe depression) 0 12/04/2024 Comments Unknown Sex and Gender Information Value Date Recorded Sex Assigned at Not on file Legal Sex Female 8:40 AM EST Gender Identity Female 11/20/2024 9:05 AM EST Sexual Orientation Lesbian 11/20/2024 9: 05 AM EST Plan of Treatment Health Maintenance Due Date Last Done Comments HEPATITIS C VIRUS SCREENING 1985 HIV SCREENING DISCUSSION 1998 HEP B VACCINE (1 of 3 - 19+ 3-dose series) 2002 PNEUMOCOCCAL VACCINE SERIES (1 of 2 - PCV) 2002 CERVICAL CANCER SCREENING DISCUSSION 2004 LIPID SCREENING 2023 MAMMOGRAM SCREENING DISCUSSION 2023 COVID-19 VACCINE ( - 2023-2 5 season) 2024 INFLUENZA VACCINE (Season Ended) 2025 TETANUS 08/22/2033 08/22/2023 TDAP (ADULT) Completed 08/22/2023 HPV VACCINE Aged Out No longer eligi ble based on patient's age to complete this topic Insurance [employer]ELIPE Care Teams Logistics Supervisor Relationship Specialty Start Date End Date Self, Self PCP - General Other 11/14/24
--- NOTE | 2025-04-21 09:40 | CT_ITS ---
The [address] [address] Patient Name: DONALDO AMBROCIO MRN: [id number] date: 1985 Sex: F Assigned Patient Location: ER Current Patient Location: ER Accession/Order Number: [id number] Exam Date: 04/21/2025 10:55 Report Date: 04/21/2025 11:04 At the request of: PIPER VASQUEZ MD Procedure: CT cervical spine wo con CLINICAL DATA: Syncopal episode and fall today. Patient hit head on toilet. Right-sided headache. CT BRAIN WITHOUT CONTRAST: COMPARISON: None TECHNIQUE: Contiguous axial unenhanced images were obtained through the brain. This CT exam was performed using one or more following dose reduction techniques: Automated exposure control, adjustment of the mA and/or kV according to patient size, or use of iterative reconstruction technique. FINDINGS: The ventricles are within normal limits for size and position. There are no areas of abnormal attenuation. There is no hemorrhage, mass effect or extra-axial collections. The calvarium is intact. The paranasal sinuses are clear. CT/CT head/brain wo con IMPRESSION: NO ACUTE INTRACRANIAL TRAUMA. CT CERVICAL SPINE WITHOUT CONTRAST WITH 3D RECONSTRUCTIONS: COMPARISON: 03/11/2025 TECHNIQUE: Spiral axial unenhanced images were obtained through the cervical spine. Sagittal, coronal and 3D volume-rendered reconstructions were also reviewed. This CT exam was performed using one or more following dose reduction techniques: Automated exposure control, adjustment of the mA and/or kV according to patient size, or use of iterative reconstruction technique. FINDINGS: There is straightening of the normal cervical curvature. There is prior cervical fusion. There is an anterior plate and screws extending from C5 to C6. There are also interbody grafting devices at C5-6 and C6-C7. The hardware is present in the prior and is unchanged. There is no interval change in alignment. The unfused disc spaces are stable. There is mild endplate spurring and facet disease. The atlantoaxial relationship is maintained. No prevertebral soft tissue swelling is seen. There are some tiny shotty cervical lymph nodes. The upper imaged lungs show no contributory findings. IMPRESSION: CONTINUED LOSS OF NORMAL CERVICAL CURVATURE. MILD DEGENERATIVE AND POSTOPERATIVE CHANGES. NO ACUTE BONY INJURY. Impression dictated by: Melisa Mark M.D. 04/21/2025 11:04 AM Dictation Location: [place] [address] Electronically authenticated by: [id number] Y Date: 04/21/2025 11:04
--- NOTE | 2025-04-21 09:40 | CT_ITS ---
The [address] [address] Patient Name: DONALDO AMBROCIO MRN: [id number] date: 1985 Sex: F Assigned Patient Location: ER Current Patient Location: ER Accession/Order Number: [id number] Exam Date: 04/21/2025 10:55 Report Date: 04/21/2025 11:04 At the request of: PIPER VASQUEZ MD Procedure: CT cervical spine wo con CLINICAL DATA: Syncopal episode and fall today. Patient hit head on toilet. Right-sided headache. CT BRAIN WITHOUT CONTRAST: COMPARISON: None TECHNIQUE: Contiguous axial unenhanced images were obtained through the brain. This CT exam was performed using one or more following dose reduction techniques: Automated exposure control, adjustment of the mA and/or kV according to patient size, or use of iterative reconstruction technique. FINDINGS: The ventricles are within normal limits for size and position. There are no areas of abnormal attenuation. There is no hemorrhage, mass effect or extra-axial collections. The calvarium is intact. The paranasal sinuses are clear. CT/CT cervical spine wo con IMPRESSION: NO ACUTE INTRACRANIAL TRAUMA. CT CERVICAL SPINE WITHOUT CONTRAST WITH 3D RECONSTRUCTIONS: COMPARISON: 03/11/2025 TECHNIQUE: Spiral axial unenhanced images were obtained through the cervical spine. Sagittal, coronal and 3D volume-rendered reconstructions were also reviewed. This CT exam was performed using one or more following dose reduction techniques: Automated exposure control, adjustment of the mA and/or kV according to patient size, or use of iterative reconstruction technique. FINDINGS: There is straightening of the normal cervical curvature. There is prior cervical fusion. There is an anterior plate and screws extending from C5 to C6. There are also interbody grafting devices at C5-6 and C6-C7. The hardware is present in the prior and is unchanged. There is no interval change in alignment. The unfused disc spaces are stable. There is mild endplate spurring and facet disease. The atlantoaxial relationship is maintained. No prevertebral soft tissue swelling is seen. There are some tiny shotty cervical lymph nodes. The upper imaged lungs show no contributory findings. IMPRESSION: CONTINUED LOSS OF NORMAL CERVICAL CURVATURE. MILD DEGENERATIVE AND POSTOPERATIVE CHANGES. NO ACUTE BONY INJURY. Impression dictated by: Melisa Mark M.D. 04/21/2025 11:04 AM Dictation Location: [place] [address] Electronically authenticated by: [id number] Y Date: 04/21/2025 11:04
--- NOTE | 2025-04-21 09:40 | ECG_ITS ---
The [facility] Test Date: 2025-04-21 Pat Name: DONALDO AMBROCIO Department: Room: - Gender: Female Rn Gyn: : 1985 Requested By: [id number] Order Number: [id number] Reading MD: GIL RAI Measurements Intervals [place] Rate: 94 P: 74 CT: 118 QRS: 106 QRSD: 92 T: 82 QT: 346 QTc: 397 Interpretive Statements 1100 Sinus rhythm [address] interval 7100 Abnormal right axis deviation 9150 abnormal ECG Compared to ECG 03/11/2025 17:37:[address] interval now present Electronically Signed On 04-21-2025 15:21:14 EDT by GIL RAI
--- NOTE | 2025-04-21 09:42 | ED.GENADUL1 ---
HPI HPI - General Adult General Chief complaint: Syncope Stated complaint: SYNCOPE, HEAD INJURY Time Seen by Provider: 04/21/25 09:24 Source: patient Mode of arrival: walk-in History of Present Illness HPI narrative: 39-year-old female presents for syncopal episode which led to her falling and hitting her right forehead. This happened just before coming into the emergency department. She had gotten out of bed and had walked into the bathroom and this is where she passed out and she states she hit her head on the toilet. No other injury. She feels a bit dizzy and her neck hurts a little bit more than it usually does, she has chronic degenerative disc disease. She is in a drug treatment program and has been clean for 197 days. She reports that she has passed out many times in the past and no cause could be found. Related Data Home Medications ?Medication ?Instructions ?Recorded ?Confirmed hydroxyzine pamoate 50 mg capsule 50 mg PO TID PRN anxiety 03/04/25 04/21/25 naloxone 4 mg/actuation nasal spray 1 spray intranasal Q3M PRN opioid 03/04/25 04/21/25 overdose clonidine HCl 0.1 mg tablet 0.1 mg PO DAILY 04/17/25 04/21/25 trazodone 50 mg tablet 50 mg PO QPM 04/17/25 04/21/25 Previous Rx's ?Medication ?Instructions ?Recorded meloxicam 15 mg tablet 15 mg PO DAILY PRN pain #10 tabs 04/17/25 Allergies Allergy/AdvReac Type Severity Reaction Status Date / Time amoxicillin Allergy Severe Anaphylaxis Verified 04/21/25 09:27 tramadol Allergy Severe Anaphylaxis Verified 04/21/25 09:27 hydroxyzine (From Atarax) Allergy Intermediate Vomiting Verified 04/21/25 09:27 Opioid HPI Opioid Management Most Recent Opioid Data: Last Pain Scale 7 Today, 10:07 Last MAR Pain Assessment Today, 10:07 Last ORT Total Score 7 03/05/25, 00:33 Last ORT Risk Category Moderate Risk 03/05/25, 00:33 Ur Phencyclidine Scrn, (NEGATIVE) Negative 02/05/25, 10:43 Review of Systems ROS Narrative A ten point review of systems is negative except as noted above. [facility] Medical History (Updated 04/21/25 @ 11:37 by Puma Gentile MD) Herniated nucleus pulposus, L5-S1, left ?M51.27 - Other intervertebral disc displacement, lumbosacral region (ICD-10) Lumbar spinal stenosis ?M48.061 - Spinal stenosis, lumbar region without neurogenic claudication (ICD-10) Hx of drug abuse ?F19.11 - Other psychoactive substance abuse, in remission (ICD-10) Atypical chest pain ?R07.89 - Other chest pain (ICD-10) Chest pain ?R07.9 - Chest pain, unspecified (ICD-10) Hyperlipemia ?E78.5 - Hyperlipidemia, unspecified (ICD-10) PTSD (post-traumatic stress disorder) ?F43.10 - Post-traumatic stress disorder, unspecified (ICD-10) Bipolar 1 disorder ?F31.9 - Bipolar disorder, unspecified (ICD-10) HTN (hypertension) ?I10 - Essential (primary) hypertension (ICD-10) Degenerative disc disease COPD (chronic obstructive pulmonary disease) ?J44.9 - Chronic obstructive pulmonary disease, unspecified (ICD-10) Hx of renal calculi ?Z87.442 - Personal history of urinary calculi (ICD-10) Family History (Updated 03/05/25 @ 00:46 by Lisa Palomares RN) Grandmother Family history of CHF (congestive heart failure) Mother Family history of COPD (chronic obstructive pulmonary disease) Family history of cancer Family history of diabetes mellitus Family history of hypertension Family history of myocardial infarction Social History Within the past year, how often did you have a drink containing alcohol: never Score interpretation: A score less than 3 is consistent with normal alcohol consumption. Smoking status: Current every day smoker Non-prescribed substance use: former substance user Highest level of school completed/degree received: GED or equivalent Are you now , , , , never or living with a partner: In a typical week, how many times do you talk on the telephone with family, friends, or neighbors: 3 or more times per week How often do you get together with friends or relatives: 3 or more times per week Little interest or pleasure in doing things: not at all Feeling down, depressed, or hopeless: not at all Feel stressed/tense/nervous/anxious/difficulty sleeping: decline to answer Gender Identity: female Exam Narrative Exam Narrative: Nurses note and vital signs reviewed and patient is not hypoxic. General: The patient appears well and in no apparent distress. Patient is resting comfortably on cart. Skin: Warm, dry, no pallor noted. There is no rash noted. Head: Normocephalic, small Sabas present on the right side of her forehead. No laceration. Eye: Normal conjunctiva, no drainage Ears, Nose, Mouth, and Throat: oral mucosa is moist. Nares patent. Cardiovascular: Regular Rate and Rhythm Respiratory: Patient is in no distress, no accessory muscle use, lungs are clear to auscultation, no wheezing, rales or rhonchi Back: non-tender, except for minimal tenderness in the cervical spine area GI: Soft and nontender Musculoskeletal: All joints have full range of motion. Neurological: A&O, normal speech Psychiatric: Cooperative Constitutional Vital Signs, click to edit/add: Last Vital Signs Temp 98.4 F 04/21/25 09:28 Pulse 81 04/21/25 11:10 Resp 17 04/21/25 11:10 BP 117/95 H 04/21/25 09:40 Pulse Ox 100 04/21/25 11:10 O2 Del Method Room Air 04/21/25 09:28 Course Vital Signs Vital signs: Vital Signs Temperature 98.4 F 04/21/25 09:28 Pulse Rate 100 H 04/21/25 09:28 Respiratory Rate 16 04/21/25 09:28 Blood Pressure 122/84 04/21/25 09:28 Pulse Oximetry 100 04/21/25 09:28 Oxygen Delivery Method Room Air 04/21/25 09:28 Temperature 98.4 F 04/21/25 09:28 Pulse Rate 81 04/21/25 11:10 Respiratory Rate 17 04/21/25 11:10 Blood Pressure 117/95 H 04/21/25 09:40 Pulse Oximetry 100 04/21/25 11:10 Oxygen Delivery Method Room Air 04/21/25 09:28 Medical Decision Making MDM Narrative Medical decision making narrative: CT scan per radiologist shows no acute findings. Blood work is essentially normal and she is able to be discharged home. She is ambulatory without difficulty. Treatment diagnosis and follow-up were discussed with the patient. Differential Diagnosis Differential Diagnosis: Head injury, intracranial hemorrhage, C-spine fracture, anemia Lab Data Lab results reviewed: Yes I reviewed the patient's lab results Labs: Lab Results 04/21/25 Range/Units 09:53 WBC 8.8 (4.0-11.0) 10^3/uL RBC 4.73 (4.20-5.40) 10^6/uL Hgb 14.9 (12.0-16.0) g/dL Hct 44.3 (36.0-48.0) % MCV 93.7 (81.0-99.0) fL MCH 31.5 (26.7-34.0) pg MCHC 33.6 (29.9-35.2) g/dL RDW 13.3 (11.0-15.0) % Plt Count 414 (150-450) 10^3/uL MPV 8.7 L (9.5-13.5) fL Neut % (Auto) 67.3 (43.0-75.0) % Lymph % (Auto) 24.0 (20.5-60.0) % [place] % (Auto) 7.1 (1.7-12.0) % Eos % (Auto) 0.9 (0.9-7.0) % Baso % (Auto) 0.5 (0.2-2.0) % Neut # (Auto) 5.9 (1.4-6.5) 10^3/uL Lymph # (Auto) 2.1 (1.2-3.8) 10^3/uL [place] # (Auto) 0.6 (0.3-0.8) 10^3/uL Eos # (Auto) 0.1 (0.0-0.7) 10^3/uL Baso # (Auto) 0.0 (0.0-0.1) 10^3/uL Abs Immat Gran (auto) 0.02 (0.00-0.03) 10^3/uL Imm/Tot Granulo (auto) 0.2 (0.0-0.5) % Sodium 136 (136-145) mmol/L Potassium 3.9 (3.5-5.1) mmol/L Chloride 102 (98-107) mmol/L Carbon Dioxide 27.4 (21.0-32.0) mmol/L Anion Gap 10.5 BUN 14.0 (7.0-18.0) mg/dL Creatinine 0.85 (0.55-1.02) mg/dL Est GFR ( Amer) >60 (>=60 mL/min/1.73m^2) Est GFR (Non-Af Amer) >60 (>=60 mL/min/1.73m^2) BUN/Creatinine Ratio 16.5 Glucose 85 (74-106) mg/dL Calcium 9.0 (8.5-10.1) mg/dL Serum HCG, Qual Negative (NEGATIVE) Imaging Data CT scan - head: Radiologist's impression: ITS Impressions Cervical Spine CT 04/21/25 09:40 IMPRESSION: NO ACUTE INTRACRANIAL TRAUMA. CT CERVICAL SPINE WITHOUT CONTRAST WITH 3D RECONSTRUCTIONS: COMPARISON: 03/11/2025 TECHNIQUE: Spiral axial unenhanced images were obtained through the cervical spine. Sagittal, coronal and 3D volume-rendered reconstructions were also reviewed. This CT exam was performed using one or more following dose reduction techniques: Automated exposure control, adjustment of the mA and/or kV according to patient size, or use of iterative reconstruction technique. FINDINGS: There is straightening of the normal cervical curvature. There is prior cervical fusion. There is an anterior plate and screws extending from C5 to C6. There are also interbody grafting devices at C5-6 and C6-C7. The hardware is present in the prior and is unchanged. There is no interval change in alignment. The unfused disc spaces are stable. There is mild endplate spurring and facet disease. The atlantoaxial relationship is maintained. No prevertebral soft tissue swelling is seen. There are some tiny shotty cervical lymph nodes. The upper imaged lungs show no contributory findings. IMPRESSION: CONTINUED LOSS OF NORMAL CERVICAL CURVATURE. MILD DEGENERATIVE AND POSTOPERATIVE CHANGES. NO ACUTE BONY INJURY. Impression dictated by: Melisa Mark M.D. 04/21/2025 11:04 AM Dictation Location: [place] [address] Electronically authenticated by: [id number] Y Date: 04/21/2025 11:[address] 04/21/25 09:40 IMPRESSION: NO ACUTE INTRACRANIAL TRAUMA. CT CERVICAL SPINE WITHOUT CONTRAST WITH 3D RECONSTRUCTIONS: COMPARISON: 03/11/2025 TECHNIQUE: Spiral axial unenhanced images were obtained through the cervical spine. Sagittal, coronal and 3D volume-rendered reconstructions were also reviewed. This CT exam was performed using one or more following dose reduction techniques: Automated exposure control, adjustment of the mA and/or kV according to patient size, or use of iterative reconstruction technique. FINDINGS: There is straightening of the normal cervical curvature. There is prior cervical fusion. There is an anterior plate and screws extending from C5 to C6. There are also interbody grafting devices at C5-6 and C6-C7. The hardware is present in the prior and is unchanged. There is no interval change in alignment. The unfused disc spaces are stable. There is mild endplate spurring and facet disease. The atlantoaxial relationship is maintained. No prevertebral soft tissue swelling is seen. There are some tiny shotty cervical lymph nodes. The upper imaged lungs show no contributory findings. IMPRESSION: CONTINUED LOSS OF NORMAL CERVICAL CURVATURE. MILD DEGENERATIVE AND POSTOPERATIVE CHANGES. NO ACUTE BONY INJURY. Impression dictated by: Melisa Mark M.D. 04/21/2025 11:04 AM Dictation Location: [place] [address] Electronically authenticated by: [id number] Y Date: 04/21/2025 11:04 ECG Data Attestation: I personally reviewed and interpreted this ECG as follows: (EKG on my interpretation shows sinus rhythm with a rate of 94 and no acute change) Discharge Plan Discharge Chief Complaint: Syncope Clinical Impression: Syncope, Head injury Patient Disposition: Home, Self-Care Time of Disposition Decision: 11:37 Condition: Good Mode of Transportation: Private Vehicle Prescriptions / Home Meds: No Action hydroxyzine pamoate 50 mg capsule 50 mg PO TID PRN (Reason: anxiety) naloxone 4 mg/actuation spray,non-aerosol 1 spray INTRANASAL Q3M PRN (Reason: opioid overdose) clonidine HCl 0.1 mg tablet 0.1 mg PO DAILY trazodone 50 mg tablet 50 mg PO QPM meloxicam 15 mg tablet 15 mg PO DAILY PRN (Reason: pain) Qty: 10 0RF Print Language: German Instructions: Syncope (ED), Head Injury (ED) Referrals: EUFEMIA HUGGINS [Primary Care Provider, Family Practice] - 1 week
[2025-04-21 09:58] LABS: Basophils Percent Auto 0.5 % (0.2-2.0); Eosinophils Absolute Auto 0.1 10^3/uL (0.0-0.7); Eosinophils Percent Auto 0.9 % (0.9-7.0); Hematocrit 44.3 % (36.0-48.0); Hemoglobin 14.9 g/dL (12.0-16.0); Immature Granulocytes Abs Auto 0.02 10^3/uL (0.00-0.03); Immature Granulocytes Pct Auto 0.2 % (0.0-0.5); Lymphocytes Absolute Auto 2.1 10^3/uL (1.2-3.8); Mean Corpuscular HGB Conc 33.6 g/dL (29.9-35.2); Mean Corpuscular Hemoglobin 31.5 pg (26.7-34.0); Mean Corpuscular Volume 93.7 fL (81.0-99.0); Mean Platelet Volume 8.7 fL (9.5-13.5); Monocytes Absolute Auto 0.6 10^3/uL (0.3-0.8); Monocytes Percent Auto 7.1 % (1.7-12.0); Neutrophils Absolute Auto 5.9 10^3/uL (1.4-6.5); Neutrophils Percent Auto 67.3 % (43.0-75.0); Platelet Count 414 10^3/uL (150-450); Red Blood Count 4.73 10^6/uL (4.20-5.40); Red Cell Distribution Width 13.3 % (11.0-15.0); White Blood Count 8.8 10^3/uL (4.0-11.0)
[2025-04-21] MEDS: ACETAMINOPHEN 325 MG TABLET 650 MG PO (10:07)
[2025-04-21 10:09] LABS: Anion Gap 10.5; BUN Creatinine Ratio 16.5; Carbon Dioxide 27.4 mmol/L (21.0-32.0); Chloride 102 mmol/L (98-107); Estimated GFR (African America >60 (>=60 mL/min/1.73m^2); Estimated GFR (Non-African Ame >60 (>=60 mL/min/1.73m^2); Glucose 85 mg/dL (74-106); Potassium 3.9 mmol/L (3.5-5.1); Sodium 136 mmol/L (136-145)
[2025-04-21 10:23] LABS: HCG Qualitative NEGATIVE (NEGATIVE); Internal Control Within Normal Limits
== END 2025-04-21 11:46 | disposition home or self-care (01) ==
PROVIDERS: Emergency Provider Emergency Medicine; PCP Nurse Practitioner Family
DX: R55 Syncope and collapse (principal); S09.90XA Unspecified injury of head, initial encounter; W22.09XA Striking against other stationary object, initial encounter; R42 Dizziness and giddiness
CPT/HCPCS: 36415; 70450; 72125; 80048; 84703; 85025; 93005; 99285

== ENCOUNTER 2025-05-28 12:40 | Outpatient (OUT) | payer OTHER, SELFPAY ==
--- OUTSIDE RECORDS SUMMARY | 2025-03-13 09:00 | XMS_ITS ---
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) Referral Organization [facility] Medicine Referring Provider First Name Jolie Referring Provider Last Name Trina Referring Provider Speciality Family Med jonathanne Referred Provider Tiffanie Bose Referred Provider Specialty Orthopedic S urgery Referral Priority Routine 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 [...] Status Risk Notes Problem Lumbago with sciatica (336806603) 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) Active confirmed Problem Arthritis (5570107) Arthritis (M19.90) Active confirmed Problem Anxiety (94680457) Anxiety (F41.9) Active confirmed Vital Signs Blood pressure systolic 106 mm Hg 03/13/20 25 Blood pressure diastolic 88 mm Hg 025 Height 69 in 03/13/2025 Weight 144.8 lbs 03/13/2025 BMI 21.38 kg/m2 03/13/2025 Procedures Procedure Date Ordered Date Performed Result Body Sit e CARDIO Stress Test - Treadmill Exercise 03/13/2025 N/A Encounters Encounter Location Date Provider Diagnosis [facility] [address] [place] [address] 03/13/2025 Jolie Trina Intermittent chest pain R07.9 [...] Next Appt Details Follow Up: prn, Reason: Provider Name:Jolie maria, 06/15/2025 10:00:00 AM, [address] [place], [address], Progress Notes * Ghulam BARRETOSheelaB: 3 (39 yo F)Acc No.[id number]:03/13/2025 New Patient Patient: Barbara BECKHAM Provider: Mack Mena ([facility]), PROFESSOR OF VISUAL ARTS :1985 A ge:39 Y S ex:Female Date:03/13/2025 Address:[address] [facility], Room [address] Check In:01:00 PM ESTCheck O ut:01:29 PM EST Subjective: * Chief Complaints: * 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 6. Has Brianna from the hospital- patient said she isn't [...] * Active Problem List F41.9 Anxiety Modified On:03/13/2025/U Status:confirmed M19.90 Arthritis Modified On:03/13/2025/U Status:confirmed M53.9 Sciatica associated with disorder of lumbar spine Modified On:03/13/2025/U Status:confirmed * Medical History: A rthritis, Anxiety, [...] rother(s): alive, Scoliosis, Degenerative Disc Disease. 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
--- OUTSIDE RECORDS SUMMARY | 2025-03-31 06:09 | XMS_ITS ---
Author Organization [facility] in [place] Address [address] [place] [address] Care Team Providers Care Double Needle Operator Lockstitch Name Role Phone Jolie Mena Primary Care Provider [phone] REASON FOR VISIT ordered labs Encounters Encounter Location Date Provider Diagnosis [facility] [address] [place] [address] 03/31/2025 Jolie Mena Wellness examination Z00.00 Assessments [...] w/eGFR CKD-EPI 2024 CBC WITH DIFF 03/31/2025 Next Appt Details Provider Name:Jolie maria, 06/15/2025 10:00:00 AM, [address] [place], [address], Progress Notes * Michelle BARRETOB: 3 (39 yo F)Acc No.[id number]:03/31/2025 Patient: Barbara BECKHAM :1985 A ge:39 Y S ex:Female Address:[address] [facility], [place], [address] Subjective: * Chief Complaints: * O rdered labs * Medical History: * Surgical History: * Hospitalization/Major Diagno stic Procedure: * Medications: Objective: * Vitals: * Physical Examination: Assessment: * Assessment: 1. W [facility] examination - Z00.00 (Primary) Plan: * Treatment: * Procedure Codes: * true * Date: Generated for Kirshna crowder/Zahra/Paulettesmitting on: 0 05/28/2025 12:42 PM EDT
--- OUTSIDE RECORDS SUMMARY | 2025-05-28 12:42 | XMS_ITS | Patient Health Record ---
Author Organization [facility] in [place] Address [address] [place] [address] Care Team Providers Care [employer] Build[employer] Supervisor Name Role Phone Jolie Mena Primary Care Provider [phone] Allergies Allergen (clinical drug ingredient) Drug/Non Drug Allergy documented on EMR Reaction Allergy Type Onset Date Status amoxicillin Amoxicillin rash/ throat swelling Drug Allergy Active tramadol traMADol rash/throat swelling Drug Allergy Active Results Component Value Reference Range Notes CBC AUTO DIFF Reviewed date:04/23/2025 10:27:49 AM Interpretation: Performing Lab: Notes/Report: [facility] , White Blood Count 8.8 4.0-11.0 10 3/uL Red Blood Count 4.73 4.20-5.40 10 6/uL Hemoglobin 14.9 12.0-16.0 g/dL Hematocrit 44.3 36.0-48.0 % Mean Corpuscular Volume 93.7 81.0-99.0 fL Mean Corpuscular Hemoglobin 31.5 26.7-34.0 pg Mean Corpuscular HGB Conc 33.6 29.9-35.2 g/dL Red Cell Distribution Width 13.3 11.0-15.0 % Platelet Count 414 150-450 10 3/uL Mean Platelet Volume 8.7 9.5-13.5 fL Neutrophils Percent Auto 67.3 43.0-75.0 % Lymphocytes Percent Auto 24.0 20.5-60.0 % Monocytes Percent Auto 7.1 1.7-12.0 % Eosinophils Percent Auto 0.9 0.9-7.0 % Basophils Percent Auto 0.5 0.2-2.0 % Immature Granulocytes Pct Auto 0.2 0.0-0.5 % Neutrophils Absolute Auto 5.9 1.4-6.5 10 3/uL Lymphocytes Absolute Auto 2.1 1.2-3.8 10 3/uL Monocytes Absolute Auto 0.6 0.3-0.8 10 3/uL Eosinophils Absolute Auto 0.1 0.0-0.7 10 3/uL Basophils Absolute Auto 0.0 0.0-0.1 10 3/uL Immature Granulocytes Abs Auto 0.02 0.00-0.03 10 3/uL Performing Lab: see note ML - [facility] LB PROF CHEM 8 (BAS METB) Reviewed date:04/23/2025 10:27:49 AM Interpretation: Performing Lab: Notes/Report: [facility] , Sodium 136 136-145 mmol/L Potassium 3.9 3.5-5.1 mmol/L Chloride 102 98-107 mmol/L Carbon Dioxide 27.4 21.0-32.0 mmol/L Anion Gap 10.5 Glucose 85 74-106 mg/dL Blood Urea Nitrogen 14.0 7.0-18.0 mg/dL Creatinine 0.85 0.55-1.02 mg/dL Estimated GFR ( Kellen >60 >=60 mL/min/1.73m 2 Estimated GFR (Non- Anushka >60 >=60 mL/min/1.73m 2 BUN Creatinine Ratio 16.5 Calcium 9.0 8.5-10.1 mg/dL Performing Lab: see note - [facility] LB HCG Qualitative* Reviewed date:04/23/2025 10:27:49 AM Interpretation: Performing Lab: Notes/Report: [facility] , HCG Qualitative NEGATIVE NEGATIVE Performing Lab: see note ML - [facility] LB ECG 12 lead Reviewed date:04/23/2025 10:27:49 AM Interpretation: Performing Lab: Notes/Report: Source Facility: [facility]-[address] [place] [address] [place] [address] Electrocardiograph Report Signed Patient: BARBARA BARRETO MR#: [id number] : 1985 Acct:[id number] Age/Sex: 39 / F ADM Date: 04/21/25 Loc: ER Attending Dr: Ordering Physician: Piper Vasquez M.D. Date of Service: 04/21/25 Procedure(s): ECG 12 lead Accession Number(s): [id number] cc: 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 Signed By: 04/21/25 1521 DD/ 0935 TD/TT: Tower Director: [place] [address] Electrocardiograph Report Signed Patient: RICCARDO BARRETO MR#: [id number] : 1985 Acct:[id number] Age/Sex: 39 / F ADM Date: 04/21/25 Loc: ER Attending Dr: Ordering Physician: iPper Vasquez M.D. Date of Service: 04/21/25 Procedure(s): ECG 12 lead Accession Number(s): [id number] cc: 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 Signed By: 04/21/25 1521 DD/ 0935 TD/TT: Tower Director: CT head/brain wo con Reviewed date:04/23/2025 10:27:49 AM Interpretation: Performing Lab: Notes/Report: Source Facility: [place] [address] CT Scan Report Signed Patient: BARBARA BARRETO MR#: [id number] : 1985 Acct:[id number] Age/Sex: 39 / F ADM Date: 04/21/25 Loc: ER Attending Dr: Ordering Physician: Piper Vasquez M.D. Date of Service: 04/21/25 Procedure(s): CT head/brain wo con Accession Number(s): [id number] cc: JOLIE MENA [place] [address] Patient Name: BARBARA BARRETO MRN: [id number] date: 1985 Sex: F Assigned Patient Location: ER Current Patient Location: ER Accession/Order Number: [id number] Exam Date: 04/21/2025 10:55 Report Date: 04/21/2025 11:04 At the request of: PIPER VASQUEZ MD Procedure: CT cervical spine wo con CLINICAL DATA: Syncopal episode and fall today. Patient hit head on toilet. Right-sided headache. CT BRAIN WITHOUT CONTRAST: COMPARISON: None TECHNIQUE: Contiguous axial unenhanced images were obtained through the brain. This CT exam was performed using one or more following dose reduction techniques: Automated exposure control, adjustment of the mA and/or kV according to patient size, or use of iterative reconstruction technique. FINDINGS: The ventricles are within normal limits for size and position. There are no areas of abnormal attenuation. There is no hemorrhage, mass effect or extra-axial collections. The calvarium is intact. The paranasal sinuses are clear. CT/CT head/brain wo con IMPRESSION: NO ACUTE INTRACRANIAL TRAUMA. CT CERVICAL SPINE WITHOUT CONTRAST WITH 3D RECONSTRUCTIONS: COMPARISON: 03/11/2025 TECHNIQUE: Spiral axial unenhanced images were obtained through the cervical spine. Sagittal, coronal and 3D volume-rendered reconstructions were also reviewed. This CT exam was performed using one or more following dose reduction techniques: Automated exposure control, adjustment of the mA and/or kV according to patient size, or use of iterative reconstruction technique. FINDINGS: There is straightening of the normal cervical curvature. There is prior cervical fusion. There is an anterior plate and screws extending from C5 to C6. There are also interbody grafting devices at C5-6 and C6-C7. The hardware is present in the prior and is unchanged. There is no interval change in alignment. The unfused disc spaces are stable. There is mild endplate spurring and facet disease. The atlantoaxial relationship is maintained. No prevertebral soft tissue swelling is seen. There are some tiny shotty cervical lymph nodes. The upper imaged lungs show no contributory findings. IMPRESSION: CONTINUED LOSS OF NORMAL CERVICAL CURVATURE. MILD DEGENERATIVE AND POSTOPERATIVE CHANGES. NO ACUTE BONY INJURY. Impression dictated by: Melisa Mark M.D. 04/21/2025 11:04 AM Dictation Location: [place] [address] Electronically authenticated by: [id number] Y Date: 04/21/2025 11:04 Dictated By: Melisa Mark M.D. Signed By: 04/21/25 1107 DD/ 1104 TD/TT: Tower Director: [place] [address] CT Scan Report Signed Patient: RICCARDO BARRETO MR#: [id number] : 1985 Acct:[id number] Age/Sex: 39 / F ADM Date: 04/21/25 Loc: ER Attending Dr: Ordering Physician: Piper Vasquez M.D. Date of Service: 04/21/25 Procedure(s): CT hea d/brain wo con Accession Number(s): [id number] cc: JOLIE MENA [address] [place] [id number] Patient Name: BARBARA BARRETO MRN: [id number] date: 1985 Sex: F Assigned Patient Loc ation: ER Current Patient Loca tion: ER Accession/Order Numb er: [id number] Exam Date: 04/21/2025 10:55 Report Date: 04/21/2025 11:04 At the request of: PIPER VASQUEZ MD Procedure: CT cervic al spine wo con CLINICAL DATA: Synco pal episode and fall today. Patient hit head on toilet. Right-sided headache. CT BRAIN WITHOUT CONTRAST: COMPARISON: None TECHNIQUE: Contiguou s axial unenhanced images were obtained through the brain. This CT exam was performed using one or more following dose reduction techniques: Automate d exposure control, adjustment of the mA and/or kV according to patient size, or use of iterative reconstruction technique. FINDINGS: The ventri cles are within normal limits for size and position. There are no areas o f abnormal attenuation. There is no hemorrhage, mass effect or extra-axia l collections. The calvarium is intact. The paranasal sinuses are clear. C T/CT head/brain wo con IMPRESSION: NO ACUTE INTRACRANIA L TRAUMA. CT CERVICAL SPINE WI THOUT CONTRAST WITH 3D RECONSTRUCTIONS: COMPARISON: 03/11/2025 TECHNIQUE: Spiral ax ial unenhanced images were obtained through the cervical spine. Sagittal, cor onal and 3D volume-rendered reconstructions were also reviewed. This CT ex am was performed using one or more following dose reduction techniques : Automated exposure control, adjustment of the mA and/or kV according to andres ent size, or use of iterative reconstruction technique. FINDINGS: There is straightening of the normal cervical curvature. There is prior cervical fusio n. There is an anterior plate and screws extending from C5 to C6. There are also interbody grafting devices at C5-6 and C6-C7. The hardware is present in the prior and is unchanged. There is no interval change in alignment. The unfused disc spaces are stable. There is mild endplate spurring an d facet disease. The atlantoaxial relationship is maintained. No preve rtebral soft tissue swelling is seen. There are some tiny shotty cervical lymph nodes. The upper imaged lungs show no contributory findings. IMPRESSION: CONTINUED LOSS OF NO RMAL CERVICAL CURVATURE. MILD DEGENERATIVE AN D POSTOPERATIVE CHANGES. NO ACUTE BONY INJURY. Impression dictated by: Melisa Mark M.D. 04/21/2025 11:04 AM Dictation Location: [place] [address] Electronically authenticated by: [id number] Y Date: 04/21/2025 11:04 Dictated By: Melisa Mark M.D. Signed By: 04/21/25 1107 DD/ 1104 TD/TT: Tower Director: CT cervical spine wo con Reviewed date:04/23/2025 10:27:49 AM Interpretation: Performing Lab: Notes/Report: Source Facility: [place] [address] CT Scan Report Signed Patient: BARBARA BARRETO MR#: [id number] : 1985 Acct:[id number] Age/Sex: 39 / F ADM Date: 04/21/25 Loc: ER Attending Dr: Ordering Physician: Piper Vasquez M.D. Date of Service: 04/21/25 Procedure(s): CT cervical spine wo con Accession Number(s): [id number] cc: JOLIE MENA [place] [address] Patient Name: BARBARA BARRETO MRN: [facility]:[id number] date: 1985 Sex: F Assigned Patient Location: ER Current Patient Location: ER Accession/Order Number: [id number] Exam Date: 04/21/2025 10:55 Report Date: 04/21/2025 11:04 At the request of: PIPER VASQUEZ MD Procedure: CT cervical spine wo con CLINICAL DATA: Syncopal episode and fall today. Patient hit head on toilet. Right-sided headache. CT BRAIN WITHOUT CONTRAST: COMPARISON: None TECHNIQUE: Contiguous axial unenhanced images were obtained through the brain. This CT exam was performed using one or more following dose reduction techniques: Automated exposure control, adjustment of the mA and/or kV according to patient size, or use of iterative reconstruction technique. FINDINGS: The ventricles are within normal limits for size and position. There are no areas of abnormal attenuation. There is no hemorrhage, mass effect or extra-axial collections. The calvarium is intact. The paranasal sinuses are clear. CT/CT cervical spine wo con IMPRESSION: NO ACUTE INTRACRANIAL TRAUMA. CT CERVICAL SPINE WITHOUT CONTRAST WITH 3D RECONSTRUCTIONS: COMPARISON: 03/11/2025 TECHNIQUE: Spiral axial unenhanced images were obtained through the cervical spine. Sagittal, coronal and 3D volume-rendered reconstructions were also reviewed. This CT exam was performed using one or more following dose reduction techniques: Automated exposure control, adjustment of the mA and/or kV according to patient size, or use of iterative reconstruction technique. FINDINGS: There is straightening of the normal cervical curvature. There is prior cervical fusion. There is an anterior plate and screws extending from C5 to C6. There are also interbody grafting devices at C5-6 and C6-C7. The hardware is present in the prior and is unchanged. There is no interval change in alignment. The unfused disc spaces are stable. There is mild endplate spurring and facet disease. The atlantoaxial relationship is maintained. No prevertebral soft tissue swelling is seen. There are some tiny shotty cervical lymph nodes. The upper imaged lungs show no contributory findings. IMPRESSION: CONTINUED LOSS OF NORMAL CERVICAL CURVATURE. MILD DEGENERATIVE AND POSTOPERATIVE CHANGES. NO ACUTE BONY INJURY. Impression dictated by: Melisa Mark M.D. 04/21/2025 11:04 AM Dictation Location: [place] [address] Electronically authenticated by: [id number] Y Date: 04/21/2025 11:04 Dictated By: Melisa Mark M.D. Signed By: 04/21/25 1107 DD/ 1104 TD/TT: Tower Director: [place] [address] CT Scan Report Signed Patient: RICCARDO BARRETO MR#: [id number] : 1985 Acct:[id number] Age/Sex: 39 / F ADM Date: 04/21/25 Loc: ER Attending Dr: Ordering Physician: Piper Vasquez M.D. Date of Service: 04/21/25 Procedure(s): CT cer vical spine wo con Accession Number(s): [id number] cc: JOLIE MENA [address] [address] Patient Name: BARBARA BARRETO MRN: [id number] date: 1985 Sex: F Assigned Patient Loc ation: ER Current Patient Loca tion: ER Accession/Order Numb er: [id number] Exam Date: 04/21/2025 10:55 Report Date: 04/21/2025 11:04 At the request of: PIPER VASQUEZ MD Procedure: CT cervic al spine wo con CLINICAL DATA: Synco pal episode and fall today. Patient hit head on toilet. Right-sided headache. CT BRAIN WITHOUT CONTRAST: COMPARISON: None TECHNIQUE: Jeriuou s axial unenhanced images were obtained through the brain. This CT exam was performed using one or more following dose reduction techniques: Automate d exposure control, adjustment of the mA and/or kV according to patient size, or use of iterative reconstruction technique. FINDINGS: The ventri cles are within normal limits for size and position. There are no areas o f abnormal attenuation. There is no hemorrhage, mass effect or extra-axia l collections. The calvarium is intact. The paranasal sinuses are clear. C T/CT cervical spine wo con IMPRESSION: NO ACUTE INTRACRANIA L TRAUMA. CT CERVICAL SPINE WI THOUT CONTRAST WITH 3D RECONSTRUCTIONS: COMPARISON: 03/11/2025 TECHNIQUE: Spiral ax ial unenhanced images were obtained through the cervical spine. Sagittal, cor onal and 3D volume-rendered reconstructions were also reviewed. This CT ex am was performed using one or more following dose reduction techniques : Automated exposure control, adjustment of the mA and/or kV according to andres ent size, or use of iterative reconstruction technique. FINDINGS: There is straightening of the normal cervical curvature. There is prior cervical fusio n. There is an anterior plate and screws extending from C5 to C6. There are also interbody grafting devices at C5-6 and C6-C7. The hardware is present in the prior and is unchanged. There is no interval change in alignment. The unfused disc spaces are stable. There is mild endplate spurring an d facet disease. The atlantoaxial relationship is maintained. No preve rtebral soft tissue swelling is seen. There are some tiny shotty cervical lymph nodes. The upper imaged lungs show no contributory findings. IMPRESSION: CONTINUED LOSS OF NO RMAL CERVICAL CURVATURE. MILD DEGENERATIVE AN D POSTOPERATIVE CHANGES. NO ACUTE BONY INJURY. Impression dictated by: Melisa Mark M.D. 04/21/2025 11:04 AM Dictation Location: [place] [address] Electronically authenticated by: [id number] Y Date: 04/21/2025 11:04 Dictated By: Melisa Saavedra M.D. Signed By: 04/21/25 1107 DD/ 1104 TD/TT: Tower Director: HCG Qualitative Urine Reviewed date:04/23/2025 10:27:49 AM Interpretation: Performing Lab: Notes/Report: [facility] , HCG Qualitative Urine* NEGATIVE NEGATIVE Performing Lab: see note - [facility] LB PROF CHEM 8 (BAS METB) Reviewed date:03/31/2025 10:08:09 AM Interpretation: Performing Lab: Notes/Report: [facility] , Sodium 145 136-145 mmol/L Potassium 3.9 3.5-5.1 mmol/L Chloride 108 98-107 mmol/L Carbon Dioxide 29.8 21.0-32.0 mmol/L Anion Gap 11.1 Glucose 112 74-106 mg/dL Blood Urea Nitrogen 10.0 7.0-18.0 mg/dL Creatinine 0.94 0.55-1.02 mg/dL Estimated GFR ( Kellen >60 >=60 mL/min/1.73m 2 Estimated GFR (Non- Anushka >60 >=60 mL/min/1.73m 2 BUN Creatinine Ratio 10.6 Calcium 8.5 8.5-10.1 mg/dL Performing Lab: see note ML - [facility] LB CBC AUTO DIFF Reviewed date:03/31/2025 10:08:09 AM Interpretation: Performing Lab: Notes/Report: [facility] , White Blood Count 7.2 4.0-11.0 [...] 3/uL Performing Lab: see note ML - 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) [facility] Referring Provider First Name Jolie Referring Provider Last Name Trina Referring Provider Speciality Family Med roel Referred Provider Tiffanie Bose Referred Provider [...] Status W/U Status Risk Notes Problem Anxiety (F41.9) Active confirmed Problem Arthritis (4934096) Arthritis (M19.90) Active confirmed Problem Cervical disc disorder (265809800) DDD (degenerative disc disease), cervical (M50.30) Active confirmed Problem Lumbago with sciatica (666515504) 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) Active confirmed Vital Signs Blood pressure diastolic 88 mm Hg 03/13/2025 Height 69 in 03/13/2025 Blood pressure systolic 106 mm Hg 03/13/2025 Weight 144.8 lbs 03/13/2025 BMI 21.38 kg/m2 03/13/2025 Procedures Procedure Date Ordered Date Performed Result Body Sit e CARDIO Stress Test - Treadmill Exercise 03/13/2025 N/A Encounters Encounter Location Date Provider Diagnosis [facility] [address] [place] [address] 03/13/2025 Jolie Mena Intermittent chest pain R07.9 and Sciatica associated with disorder of lumbar spine M53.9 [facility] [address] [place] [address] 03/31/2025 Jolie Mena Wellness examination Z00.00 Assessments [...] Name:Jolie maria, 06/15/2025 10:00:00 AM, [address] [place], [address], Medical (General) History Medical History History ICD Code Arthritis M19.90 Anxiety F41.9 Depression F32.A Surgical History Surgery Date(Month/Year) Neck Fusion Interventional Spine injections Knee arthroscopy Hospitalization History Reason Date(Month/Year) Lumbar Spine pain 03/06/2025
--- NOTE | 2025-05-28 13:00 | ECG_ITS ---
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 Measurements Intervals Hodge Rate: 86 P: 65 NE: 112 QRS: 100 QRSD: 92 T: 70 QT: 345 QTc: 415 Interpretive Statements SINUS RHYTHM WITH SHORT NE INTERVAL BORDERLINE RIGHT AXIS DEVIATION [QRS AXIS > 90] Abnormal ECG Compared to ECG 04/21/2025 09:35:26 No significant changes Electronically Signed On 05-29-2025 6:47:32 EDT by ADEOLA CUEVAS M.D.
== END 2025-05-28 12:41 | disposition home or self-care (01) ==
LOC: CARD 12:40
PROVIDERS: PCP Nurse Practitioner Family; Visit Provider Orthopaedic Surgery Orthopaedic Surgery of the Spine
DX: M51.27 Other intervertebral disc displacement, lumbosacral region (principal)
CPT/HCPCS: 93005

== ENCOUNTER 2025-05-28 12:44 | Outpatient (OUT) | payer OTHER, SELFPAY ==
--- OUTSIDE RECORDS SUMMARY | 2025-05-19 05:24 | XMS_ITS ---
Author Organization [facility] Address [address] [place] [address] Care Team Providers Care Owner Spa Director Name Role Phone Jolie Mena Primary Care Provider Tiffanie Velasco Unavailable [phone] REASON FOR VISIT PRE OP LABS Procedures Procedure Date Ordered Date Performed Result Body Sit e EKG 05/19/2025 N/A Encounters Encounter Location Date Provider Diagnosis [facility] [address] [place] [address] 05/19/2025 Tiffanie Bose Other intervertebral disc displacement, lumbosacral region M51.27 ; DDD (degenerative disc disease), cervical M50.30 and Degeneration of intervertebral disc of lumbosacral region with discogenic back pain and lower extremity pain M51.372 Assessments Encounter Date Diagnosis (ICD Code) Assessment Notes Treatment Notes Treatment Clinical Notes Section Notes 05/19/2025 Other intervertebral disc displacement, lumbosacral region (ICD-10 - M51.27) 05/19/2025 DDD (degenerative disc disease), cervical (ICD-10 - M50.30) 05/19/2025 Degeneration of intervertebral disc of lumbosacral region with discogenic back pain and lower extremity pain (ICD-10 - M51.372) Plan Of Treatment Pending Test Test Name Order Date Chest 2 views - [id number] 05/19/2025 CBC 05/19/2025 PT/PTT 05/19/2025 BMP 05/19/2025 MRSA (Bilateral Nares) PCR 05/19/2025 EKG 05/19/2025 Next Appt Details Provider Name:Tfifanie Puente, 06/12/2025 11:20:00 AM, [address] [place], [address], Provider Name:Tiffanie Nunez air, 06/23/2025 12:10:00 PM, [address] [facility], [place], [place], [id number], Provider Name:Tiffanie Puente, 08/06/2025 01:10:00 PM, [address] [facility], [place], [address], Progress Notes * DANICA AMBROCIOTERRYB: 3 (39 yo F)Acc No.[id number]:05/19/2025 Patient: DONALDO BECKHAM :1985 A ge:39 Y S ex:Female Address:[facility] [place] [facility], [address], [place], [address] Subjective: * Chief Complaints: * P RE OP LABS * Medical History: * Surgical History: * Hospitalization/Major Diagno stic Procedure: * Medications: Objective: * Vitals: * Physical Examination: Assessment: * Assessment: 1. O ther intervertebral disc displacement, lumbosacral region - M51.27 (Primary) ?2. D DD (degenerative disc disease), cervical - M50.30 3 . D egeneration of intervertebral disc of lumbosacral region with discogenic back pain and lower extremity pain - M51.372 Plan: * Treatment: * Procedure Codes: 7 1046 X-RAY EXAM CHEST 2 VIEWS * true * Date: Generated for Krishna crowder/Zahra/eTlazarosmitting on: 0 05/28/2025 12:47 PM EDT
--- OUTSIDE RECORDS SUMMARY | 2025-05-28 12:48 | XMS_ITS | Patient Health Record ---
Author Organization [facility] Address [address] [place] [address] Care Team Providers Care Cyber Security Administrator Name Role Phone Jolie Huggins Primary Care Provider Tiffanie Velasco Unavailable [phone] Lionel Daley Unavailable [phone] Bridgett June Unavailable [phone] Results Component Value Reference Range Notes Surgery Scheduling (Not yet reviewed by provider) Interpretation:Pre-Op orders: CBC,BMP,PT/PTT, TYPE AND SCREEN,EKG,Chest X- ray,MRSA NASAL SWAB Performing Lab: Notes/Report: Pre-Op orders: CBC,BMP,PT/PTT, TYPE AND SCREEN,EKG,Chest X-ray,MRSA NASAL SWAB Primary Insurance Company: MEDICAID [place] Surgeon/Assist: [facility]/YUNI OR LIONEL Surgery Location: [facility] Surgery Date & Time: 06/23/25 12:15PM Hosp arrival time day of: 10:15PM Surgery End Time: 2:15PM Procedure: L5-S1 DECOMPRESSION AND FUSION Special Equipment: SSEP, PRONE, ANIRUDH TABLE, SURGALIGN Diagnosis: M50.30 DDD Admission Type: INPATIENT Anesthesia Type/CPNB: GENERAL Post-op Appointment Date: 08/06/25 @ 1:10PM MEREDITH Lab Location: [facility] Lab Date/Time: IAM Garnisher: IRMA Pedraza Physician: JOLIE Pedraza Appt Date/T 06/15/25 @ 10:00AM History & Physical Appointme nt Date/: 06/12/25 @ 11:20AM Reason For Referral Reason sciatica Diagnosis 1 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) Referred Organization [facility] Referred Provider Tiffanie Bose Referred Address [address] [place],[address] Referred Provider Specialty Orthopedic [facility] General Notes Fern Yanez 10/2025 07:40:40 AM >LUMBAR PAIN, LVM/SENT TEXT REF/Pedro [facility] HUGGINS ([facility]) NEED INSURANCE Referral Priority Routine Reason SEE NOTES........... ....................APPROVED OUTPATIENT.................................06/23/25.............................. [facility] L5-S1 DECOMPRESSION AND FUSION 92055, 90686, 36748, 07060 Diagnos is 1 DDD (degenerative disc disease), cervica l (M50.30) Diagnos is 2 Degeneration of intervertebral disc of l umbosacral region with discogenic back pain and lower extremity pain (M51.372) Diagnos is 3 Other intervertebral disc displacement, 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) Referra l [facility] Referri ng Provide r First Name Tiffanie Referri lakesha Provide r Last Name [facility] Refernasir crowder Provide r Special ity Orthopedic Surgery Referre d [facility] Inpatient Referre d Address [address] [place] [address],[place], [place],[id number] , Procedu re 1 Arthrodesis, posterior lumbar, 1 lumbar level (02792) Procedu re 2 Laminectomy, facetectomy and foraminotom y single lumbar (81933) Procedu re 3 Posterior non-segmental instrumentation (67298) Procedu re 4 Autograft for spine surgery only; local obtained from same incision (02506) General Notes Raeann Rosa 05/19/2025 09:35:05 AM > OU TPATIENT AUTHORIZATION REQUEST SUBMITTED WITH [facility]IC[facility]IA [facility] [employer], PENDING AUTHORIZATION # [id number], Raeann Rosa 05/20/2025 08:28:40 AM > PENDING WITH WANG., Raeann Rosa 05/26/2025 08:03:42 AM > PENDING WITH [facility]EL[facility]., Raeann Rosa 05/26/2025 02:04:17 PM > AUTHORIZATION # [id number] APPROVED OUTPATIENT AND VALID 06/23/25-09/21/25 PER FAX BACK FROM FEL[facility]. PLEASE CHANGE TO OUTPATIENT AND SEND BACK TO ME SO I CAN FAX TO [facility]. Referra l Priorit y Routine Problems Problem Type SNOMED Code ICD Code Onset Dates Problem Status W/U Status Risk Notes Problem 32035199 Other intervertebral disc displacement, 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) Active confirmed Problem 71339754 DDD (degenerativ e disc disease), cervical (M50.30) Active confirmed Problem 04719953 Degeneration of intervertebral disc of lumbosacral region with discogenic back pain and lower extremity pain (M51.372) Active confirmed Procedures Procedure Date Ordered Date Performed Result Body Sit e EKG 05/19/2025 N/A Encounters Encounter Location Date Provider Diagnosis [facility] Office [address] [place] [address] 04/10/2025 [facility] Degeneration of intervertebral disc of lumbosacral region with discogenic back pain and lower extremity pain M51.372 and Other intervertebral disc displacement, lumbosacral region M51.27 [facility] Office [address] [place] [address] 05/01/2025 Lionel Daley DDD (degenerative disc disease), cervical M50.30 [facility] [address] [place] [address] 05/19/2025 Tiffanie Bose Other intervertebral disc displacement, [...] disc disease with disc herniation and radiculopathy 05/01/2025 DDD (degenerative disc disease), cervical (ICD-10 - M50.30) 1. L5-S1 degenerative disc disease and disc herniation with stenosis and radiculopathy 05/19/2025 Other intervertebral disc displacement, lumbosacral region (ICD-10 - M51.27) 05/19/2025 DDD (degenerative disc disease), cervical (ICD-10 - M50.30) 05/19/2025 Degeneration of intervertebral disc of lumbosacral region with discogenic back pain and lower extremity pain (ICD-10 - M51.372) 04/10/2025 Other Plan established by Dr. Julien. Patient evaluated by myself and Dr. Julien today. We did review patient's MRI results with her and will get her into physical therapy as she is not tried this in a long time since living in [place]. If her pain persists we did discuss [...] disc disease with disc herniation and radiculopathy 05/01/2025 Other At this time, patient would like to proceed with surgical intervention. Recommended surgery is a L5-S1 decompression and fusion. Fusion being necessary due to the destabilizing facetectomy required to free up the foraminal narrowing. Risk, benefits and alternatives to surgery were discussed. Patient would like to proceed with surgical intervention. We will see her back for a preoperative history and physical to discuss surgery in further detail pending medical clearance. The patient is very much in agreement with the treatment and/or diagnostic plan set forth and all questions were answered to the patient's satisfaction. Thanks once again. If we can be of further service to your patients with disorders of the spine, cervical, thoracic, or lumbar, please do not hesitate to contact Dr. Julien. Best regards, 1. L5-S1 degenerative disc disease and disc herniation with stenosis and radiculopathy Plan Of Treatment Pending Test Test Name Order Date Chest 2 views - 80276 05/19/2025 Lumbar spine, 4v flex ext - 77714 2024 CBC 05/19/2025 PT/PTT 05/19/2025 BMP 05/19/2025 Surgery Scheduling 05/19/2025 MRSA (Bilateral Nares) PCR 05/19/2025 SFS - Lumbar Spine PT Order, Isometrics & Strenghening w/Modalities as needed, 2-3 times per week for 6 weeks 04/10/2025 EKG 05/19/2025 Next Appt Details Provider Name:Tiffanie Lilly [facility], 06/12/2025 11:20:00 AM, [address] [place] [address], [phone], Provider Name:Tiffanie Lilly [facility], 06/23/2025 12:10:00 PM, [address] [place] [address], [phone], Provider Name:Tiffanie Lilly [facility], 08/06/2025 01:10:00 PM, [address] [place] [address], [phone], Insurance Providers Payer Name Payer Address Payer Phone Subscriber Number Group Number Insured Name Patient Relationship to Insured Coverage Start Date Coverage End Date Medicaid [place] [address] [address] [place] [address] [id number] DONALDO AMBROCIO Self - patient is the insured
--- NOTE | 2025-05-28 13:23 | XR_ITS ---
The [address] [address] Patient Name: DONALDO AMBROCIO MRN: [id number] date: 1985 Sex: F Assigned Patient Location: LAB Current Patient Location: LAB Accession/Order Number: [id number] Exam Date: 05/28/2025 13:45 Report Date: 05/28/2025 13:45 At the request of: DONOVAN WHITESIDE MD Procedure: XR chest 2V Chest 2 views CLINICAL HISTORY: Pre Operative Evaluation COMPARISON: Chest 03/11/2025 FINDINGS: Heart appears normal in size. Lungs are clear. No free air. XR/XR chest 2V IMPRESSION: NO ACUTE CARDIOPULMONARY ABNORMALITY. Impression dictated by: Randy Funes Jr.ONick 05/28/2025 1:45 PM Dictation Location: [place] [address] Electronically authenticated by: [id number] Y Date: 05/28/2025 13:45
[2025-05-28 13:27] LABS: Hematocrit 44.7 % (36.0-48.0); Hemoglobin 14.6 g/dL (12.0-16.0); Immature Granulocytes Abs Auto 0.03 10^3/uL (0.00-0.03); Immature Granulocytes Pct Auto 0.3 % (0.0-0.5); Lymphocytes Absolute Auto 2.2 10^3/uL (1.2-3.8); Mean Corpuscular HGB Conc 32.7 g/dL (29.9-35.2); Mean Corpuscular Hemoglobin 30.9 pg (26.7-34.0); Mean Corpuscular Volume 94.7 fL (81.0-99.0); Platelet Count 425 10^3/uL (150-450); Red Blood Count 4.72 10^6/uL (4.20-5.40); White Blood Count 9.4 10^3/uL (4.0-11.0)
[2025-05-28 13:34] LABS: INR 1.03; Partial Thromboplastin Time 31.3 sec (22.3-36.2); Prothrombin Time 10.9 sec (9.0-11.6)
[2025-05-28 13:56] LABS: Anion Gap 13.1; Blood Urea Nitrogen 12.0 mg/dL (7.0-18.0); Calcium 9.1 mg/dL (8.5-10.1); Carbon Dioxide 27.8 mmol/L (21.0-32.0); Chloride 105 mmol/L (98-107); Estimated GFR (African America >60 (>=60 mL/min/1.73m^2); Estimated GFR (Non-African Ame >60 (>=60 mL/min/1.73m^2); Glucose 105 mg/dL (74-106); Potassium 3.9 mmol/L (3.5-5.1); Sodium 142 mmol/L (136-145)
== END 2025-05-28 12:45 | disposition home or self-care (01) ==
LOC: LAB 12:46
PROVIDERS: PCP Nurse Practitioner Family; Visit Provider Orthopaedic Surgery Orthopaedic Surgery of the Spine
DX: M51.27 Other intervertebral disc displacement, lumbosacral region (principal)
CPT/HCPCS: 36415; 71046; 80048; 85025; 85610; 85730; 87081; 93005

== ENCOUNTER 2025-06-18 09:58 | Outpatient (OUT) | payer OTHER, SELFPAY ==
--- OUTSIDE RECORDS SUMMARY | 2025-03-31 06:09 | XMS_ITS ---
Author Organization [facility] in [place] Address [address] [place] [address] Care Team Providers Care Rubber Mold Maker Name Role Phone Jolie Mena Primary Care Provider REASON FOR VISIT ordered labs Encounters Encounter Location Date Provider Diagnosis [facility] [address] [place] [address] 03/31/2025 Jolie Mena Wellness examination Z00.00 Assessments Encounter Date Diagnosis (ICD Code) Assessment Notes Treatment Notes Treatment Clinical Notes Section Notes 03/31/2025 Wellness examination (ICD-10 - Z00.00) Plan Of Treatment Pending Test Test Name Order Date HEMOGLOBIN A1C (GLYCO) 03/31/2025 IRON, TOTAL 03/31/2025 LIPID PANEL (CHOL/TRIG/HDL/LDL) 03/31/20 25 VITAMIN D, 25 LEVEL (TOTAL) 03/31/2025 Insulin Level 03/31/2025 THYROID PANEL (T4/TSH/FREE T3) CMP (COMP MET AMARO) w/eGFR CKD-EPI 2024 CBC WITH DIFF 03/31/2025 Progress Notes * Michelle BARRETOB: 3 (39 yo F)Acc No.[id number]:03/31/2025 Patient: Barbara BECKHAM :1985 A ge:39 Y S ex:Female Address:[address], [place] [address] Subjective: * Chief Complaints: * O rdered labs * Medical History: * Surgical History: * Hospitalization/Major Diagno stic Procedure: * Medications: Objective: * Vitals: * Physical Examination: Assessment: * Assessment: 1. [facility] examination - Z00.00 (Primary) Plan: * Treatment: * Procedure Codes: * true * Date: Generated for Krishna crowder/Zahra/Radha on: 0 06/18/2025 10:01 AM EDT
--- OUTSIDE RECORDS SUMMARY | 2025-06-15 05:54 | XMS_ITS ---
Author Organization The [facility] [place] Address [address] [place] [address] Care Team Providers Care Operations Asst Name Role Phone Jolie Mena Primary Care Provider REASON FOR VISIT stress test- Procedures Procedure Date Ordered Date Performed Result Body Sit e *CARDIO Stress Test - Lexiscan Nuclear 06/15/2025 N/A Encounters Encounter Location Date Provider Diagnosis [facility] [address] [place] [address] 06/15/2025 Jolie Mena Intermittent chest pain R07.9 Assessments Encounter Date Diagnosis (ICD Code) Assessment Notes Treatment Notes Treatment Clinical Notes Section Notes 06/15/2025 Intermittent chest pain (ICD-10 - R07.9) Plan Of Treatment Pending Test Test Name Order Date *CARDIO Stress Test - Lexiscan Nuclear 0 06/15/2025 Progress Notes * Michelle BARRETOB: 3 (39 yo F)Acc No.[id number]:06/15/2025 Patient: Barbara BECKHAM :1985 A ge:39 Y S ex:Female Address:[address] [facility], [address], [place], [address] Subjective: * Chief Complaints: * S tress test- * Medical History: * Surgical History: * Hospitalization/Major Diagno stic Procedure: * Medications: Objective: * Vitals: * Physical Examination: Assessment: * Assessment: 1. I ntermittent chest pain - R07.9 (Primary) Plan: * Treatment: * Procedure Codes: * true * Date: Generated for Krishna crowder/Zahra/Radha on: 0 06/18/2025 10:01 AM EDT
--- OUTSIDE RECORDS SUMMARY | 2025-06-15 06:00 | XMS_ITS ---
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 No Points 0 Interpretation Negative Vital Signs Blood pressure systolic 122 mm Hg 06/15/20 25 Blood pressure diastolic 82 mm Hg 025 Height 69 in 06/15/2025 Weight 147 lbs 06/15/2025 BMI 21.71 kg/m2 06/15/2025 Encounters Encounter Location Date Provider Diagnosis [facility] [address] [place] [address] 06/15/2025 Jolie Mena Encounter for other preprocedural examination Z01.818 Assessments Encounter Date Diagnosis (ICD Code) Assessment Notes Treatment Notes Treatment Clinical Notes Section Notes 06/15/2025 Encounter for other preprocedural examination (ICD-10 - Z01.818) labs reviewed, ok chest xray looks good ekg not perfect, also treadmill stress not perfect needs chemical stress before surgery Plan Of Treatment Treatment Notes Assessment Notes Encounter for other preprocedural examin ation labs reviewed, ok chest xray looks good ekg not perfect, also treadmill stress not perfect needs chemical stress before surgery Next Appt Details Follow Up: prn, Reason: Progress Notes * Michelle BARRETOB: 3 (39 yo F)Acc No.[id number]:06/15/2025 Progress Note Patient: Barbara BECKHAM Provider: Mack Mena ([facility]), MEDICAL EQUIPMENT REPAIRER :1985 A ge:39 Y S ex:Female Date:06/15/2025 Address:[address] [place] [address], [address], [place] [address] Check In:09:37 AM ESTCheck O ut:09:54 AM EST Subjective: * Chief Complaints: * 1 . Paperwork in nurses box surgery clearance dr holt 06-23-25 lumbar. * HPI: G eneral: lumbar decompression and fusion labs and test results reviewed did have stress test in March, we did not get results reviewed results on patients phone recommend chemical stress for fu. * ROS: G eneral/Constitutional: Fever d enies. [...] Productive cough d enies. C hest pain d enies. C ough d enies. S hortness of breath d enies. W heezing d enies. ? G astrointestinal: Abdominal pain d enies. C onstipation d enies. D ecreased appetite d enies. D iarrhea d enies. N ausea d enies. V omiting?denies. G enitourinary: Urinary incontinence d enies. P ainful urination d enies. M usculoskeletal: Back pain d enies. N sabrina pain d enies. M uscle aches d enies. S kin: Rash d enies. S kin lesion(s) d enies. ? * Active Problem List F41.9 Anxiety Modified On:03/13/2025/U Status:confirmed M19.90 Arthritis Modified On:03/13/2025U Status:confirmed M53.9 Sciatica associated with disorder of lumbar spine Modified On:03/13/2025U Status:confirmed M50.30 DDD (degenerative di sc disease), cervical Modified On:05/20/2025U Status:confirmed * Medical History: A rthritis, Anxiety, Depression. * Surgical History: N sabrina Fusion , Interventional Spine injections , Knee arthroscopy . * Hospitalization/Major Diagno stic Procedure: L umbar Spine pain 03/06/2025. * Family History: F ather: alive, Hypercholesterolemia, Mental Illness, Alcoholism, diagnosed with Unspecified essential hypertension, Unspecified heart disease. M other: alive, Hypercholesterolemia, Heart Attack, Skin Cancer, Asthma, COPD, diagnosed with Other malignant neoplasm of unspecified site, Diabetes mellitus without mention of complication, type II or unspecified type, not stated as uncontrolled, Unspecified essential hypertension, Unspecified heart disease. B rother(s): alive, Scoliosis, Degenerative Disc Disease. [...] 0 I nterpretation N egative * Medications: D iscontinued Aspirin Adult Low Dose(Aspirin) 81 MG Tablet Delayed Release 1 tablet Orally Once a day , Discontinued Buprenorphine HCl-Naloxone HCl 8-2 MG Tablet Sublingual 3 tablet under the tongue and allow to dissolve Sublingual every morning , Discontinued Cyclobenzaprine HCl 10 MG Tablet 1 tablet Orally three times daily PRN , Discontinued hydrOXYzine Pamoate 50 MG Capsule 1 capsule Orally three times daily PRN , Discontinued Methocarbamol 750 MG Tablet 1 tablet Orally every 6 hours PRN , Discontinued Pregabalin 75 MG Capsule 1 capsule Orally twice daily , Discontinued Sertraline HCl 50 MG Tablet 1 tablet Orally Once a day , Discontinued Vitamin D3 50 MCG (1999 UT) Capsule 1 capsule Orally Once a day , Medication List reviewed and reconciled with the patient * Allergies: A moxicillin: rash/ throat swelling - Allergy, traMADol: rash/throat swelling - Allergy. Objective: * Vitals: W t:147lbs, Ht: 69 in, BP:122/82mm Hg, BMI:21.71Index, Ht-cm: 175.26 cm, Wt-k.68 kg. * Examination: G eneral Examinations: GENERAL APPEARANCE: a lert and oriented, i n no acute distress. EYES: c onjunctiva normal, sclera non-icteric. NOSE: n ormal external appearance. LUNGS: c lear to auscultation bilaterally. CARDIO: r egular rate and rhythm, S1, S2 normal. ABDOMEN: s oft, nontender. MUSCULOSKELETAL: G ait and station normal. SKIN: w arm and dry. Assessment: * Assessment: 1. E ncounter for other preprocedural examination - Z01.818 (Primary) Plan: * Treatment: * Follow Up: p rn * * Electronically signed by Tonia Mena NP, CONSULTANT INTERN.MEDICAL EQUIPMENT [id number] on 06/17/2025 at 09:56 AM EDT Sign off status: Completed Visit Status: C HK (Check Out) true * Provider: Mack Mena (JESSY), MEDICAL EQUIPMENT REPAIRER Date: 0 06/15/2025 Generated for Krishna crowder/Faxing/eTransmitting on: 0 06/18/2025 10:01 AM EDT History and Physical Notes * HPI (History of Present Illness) Category Sub-Category Detail Notes Category Not es General lumbar decompression and fusion labs and test results reviewed did have stress test in March, we did not get results reviewed results on patients phone recommend chemical stress for fu Examination Category Sub-Category Detail Notes Category Not es General Examinations GENERAL APPEARANCE: alert a nd oriented, in no acute distress EYES: conjunctiva normal, sclera non-icteric EARS: NOSE: normal external appe arance THROAT: CARDIO: regular rate and rhy thm, S1, S2 normal LUNGS: clear to auscultatio n bilaterally ABDOMEN: soft, nontender SKIN: warm and dry BACK: MUSCULOSKELETAL: Gait and station nor mal LYMPH NODES:
--- NOTE | 2025-06-18 09:30 | NM_ITS ---
Patient Name: DONALDO AMBROCIO MR#: [id number] : 1985 Exam Date: 06/18/2025 Ordering Doctor: EUFEMIA HUGGINS CNP RADIOLOGY REPORT PROCEDURE: NM BLAZE PERF SPECT REST STR COMPARISON: None. INDICATIONS: CHEST PAIN, PRE PROCEDURE CARDIOVASCULAR EXAM TECHNIQUE: Exam Description: Stress/Rest one day protocol gated SPECT Rest Imagin.9 mCi Tc-99m Cardiolite IV on 06/18/2025 Stress Imaging 31.0 mCi Tc-99m Cardiolite IV on 06/18/2025 Exercise Protocol: 0.4 mg Lexiscan given IV Heart Rate (bpm): Rest: 86 Max: 107 PMHR: 59 Blood Pressure: Rest: 120/92 Max: 132/93 Symptoms: Rest and peak stress ECG findings were pending, and the exercise portion of the study was pending per attending physician RUST. For more details, please see separate cardiac stress test report. FINDINGS: QUALITY OF STUDY: Good PERFUSION DEFECT: LOCATION: N/A SIZE: N/A SEVERITY: N/A TYPE: N/A WALL MOTION: Normal wall motion LV SIZE: 68 mL. TID / TCD: 0.9 LVEF: Calculated EF 69%. SUMMARY: Myocardial perfusion imaging study is normal CONCLUSION: 1. Myocardial perfusion is normal 2. Global left ventricular systolic function is normal; ejection fraction is 69% 3. No significant transient ischemic dilatation Dictated by: Nicole Jessica M.D. on 06/22/2025 at 13:48 Approved by: Nicole Jessica M.D. on 06/22/2025 at 13:50
--- OUTSIDE RECORDS SUMMARY | 2025-06-18 10:01 | XMS_ITS | Patient Health Record ---
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 Name Role Phone Jolie Huggins Primary Care Provider [phone] Allergies Allergen (clinical drug ingredient) Drug/Non Drug Allergy documented on EMR Reaction Allergy Type Onset Date Status amoxicillin Amoxicillin rash/ throat swelling Drug Allergy Active tramadol traMADol rash/throat swelling Drug Allergy Active Results Component Value Reference Range Notes HCG Qualitative Urine Reviewed date:04/23/2025 10:27:49 AM Interpretation: Performing Lab: Notes/Report: [facility] , HCG Qualitative Urine* NEGATIVE NEGATIVE Performing Lab: see note ML - [facility] LB CBC AUTO DIFF Reviewed date:04/23/2025 10:27:49 AM Interpretation: Performing Lab: Notes/Report: [facility] , White Blood Count 8.8 [...] 3/uL Performing Lab: see note ML - [facility] CT head/brain wo con Reviewed date:04/23/2025 10:27:49 AM Interpretation: Performing Lab: Notes/Report: Source Facility: [place] [address] CT Scan Report Signed Patient: BARBARA BARRETO MR#: [id number] : 1985 Acct:[id number] Age/Sex: 39 / F ADM Date: 04/21/25 Loc: ER Attending Dr: Ordering Physician: Piper Vasquez M.D. Date of Service: 04/21/25 Procedure(s): CT head/brain wo con Accession Number(s): [id number] cc: JOLIE HUGGINS [place] [address] Patient Name: BARBARA BARRETO MRN: [id number] date: 1985 Sex: F Assigned Patient Location: ER Current Patient Location: ER Accession/Order Number: [id number] Exam Date: 04/21/2025 10:55 Report Date: 04/21/2025 [...] Mark M.D. 04/21/2025 11:04 AM Dictation Location: [place] [address] Electronically authenticated by: [id number] Y Date: 04/21/2025 11:04 Dictated By: Melisa Mark M.D. Signed By: 04/21/25 1107 DD/ 1104 TD/TT: Straddle Buggy Operator: [place] [address] CT Scan Report Signed Patient: RICCARDO BARRETO MR#: [id number] : 1985 Acct:[id number] Age/Sex: 39 / F ADM Date: 04/21/25 Loc: ER Attending Dr: Ordering Physician: Piper Vasquez M.D. Date of Service: 04/21/25 Procedure(s): CT head/brain wo con Accession Number(s): [id number] cc: JOLIE HUGGINS [place] [address] Patient Name: BARBARA BARRETO MRN: [id number] date: 1985 Sex: F Assigned Patient Loc ation: ER Current Patient Loca tion: ER Accession/Order Numb er: [id number] Exam Date: 04/21/2025 10:55 Report Date: 04/21/2025 [...] Mark M.D. 04/21/2025 11:04 AM Dictation Location: [place] [address] Electronically authenticated by: [id number] Y Date: 04/21/2025 11:04 Dictated By: Melisa Mark M.D. Signed By: 04/21/25 1107 DD/ 1104 TD/TT: Straddle Buggy Operator: CT cervical spine wo con Reviewed date:04/23/2025 10:27:49 AM Interpretation: Performing Lab: Notes/Report: Source Facility: [place] [address] CT Scan Report Signed Patient: BARBARA BARRETO MR#: [id number] : 1985 Acct:[id number] Age/Sex: 39 / F ADM Date: 04/21/25 Loc: ER Attending Dr: Ordering Physician: Piper Vasquez M.D. Date of Service: 04/21/25 Procedure(s): CT cervical spine wo con Accession Number(s): [id number] cc: JOLIE HUGGINS [place] [address] Patient Name: BARBARA BARRETO MRN: [id number] date: 1985 Sex: F Assigned Patient Location: ER Current Patient Location: ER Accession/Order Number: [id number] Exam Date: 04/21/2025 10:55 Report Date: 04/21/2025 [...] Mark M.D. 04/21/2025 11:04 AM Dictation Location: [place] [address] Electronically authenticated by: [id number] Y Date: 04/21/2025 11:04 Dictated By: Melisa Mark M.D. Signed By: 04/21/25 1107 DD/ 1104 TD/TT: Straddle Buggy Operator: [place] [address] CT Scan Report Signed Patient: RICCARDO BARRETO MR#: [id number] : 1985 Acct:[id number] Age/Sex: 39 / F ADM Date: 04/21/25 Loc: ER Attending Dr: Ordering Physician: Piper Vasquez M.D. Date of Service: 04/21/25 Procedure(s): CT cer vical spine wo con Accession Number(s): [id number] cc: JOLIE HUGGINS [address] [address] Patient Name: BARBARA BARRETO MRN: [id number] date: 1985 Sex: F Assigned Patient Loc ation: ER Current Patient Loca tion: ER Accession/Order Numb er: [id number] Exam Date: 04/21/2025 10:55 Report Date: 04/21/2025 [...] Mark M.D. 04/21/2025 11:04 AM Dictation Location: [place] [address] Electronically authenticated by: [id number] Y Date: 04/21/2025 11:04 Dictated By: Melisa Mark M.D. Signed By: 04/21/25 1107 DD/ 1104 TD/TT: Straddle Buggy Operator: PROF ELZBIETA Lewis ([facility]) Reviewed date:05/28/2025 03:13:45 PM Interpretation: Performing Lab: Notes/Report: [facility] , Sodium 142 136-145 mmol/L Potassium 3.9 3.5-5.1 mmol/L Chloride 105 98-107 mmol/L Carbon Dioxide 27.8 21.0-32.0 mmol/L Anion Gap 13.1 Glucose 105 74-106 mg/dL Blood Urea Nitrogen 12.0 7.0-18.0 mg/dL Creatinine 0.79 0.55-1.02 mg/dL Estimated GFR ( Kellen >60 >=60 mL/min/1.73m 2 Estimated GFR (Non- Anushka >60 >=60 mL/min/1.73m 2 BUN Creatinine Ratio 15.2 Calcium 9.1 8.5-10.1 mg/dL Performing Lab: see note ML - [facility] LB PTT Reviewed date:05/28/2025 03:13:45 PM Interpretation: Performing Lab: Notes/Report: [facility] , Partial Thromboplastin Time 31.3 22.3-36.2 sec Performing Lab: see note ML - [facility] LB Prothrombin Time INR Reviewed date:05/28/2025 03:13:45 PM Interpretation: Performing Lab: Notes/Report: [facility] , Prothrombin Time 10.9 9.0-11.6 sec INR 1.03 DESIRED INR: 2.5-3.5 FOR PROSTHETIC HEART VALVE REPLACEMENT 2.5-3.5 RECURRENT THROMBOSIS 2.0-3.0 CONDITIONS NOT LISTED BELOW Performing Lab: see note ML - [facility] LB ECG 12 lead Reviewed date:05/29/2025 08:22:27 AM Interpretation: Performing Lab: Notes/Report: Source Facility: [place] [address] [place] [address] Electrocardiograph Report Signed Patient: BARBARA BARRETO MR#: [id number] : 1985 Acct:[id number] Age/Sex: 39 / F ADM Date: 05/28/25 Loc: CARD Attending Dr: Donovan Julien M.D. Ordering Physician: Donovan Julien M.D. 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 Measurements Intervals [place] Rate: 86 P: 65 MS: 112 QRS: 100 QRSD: 92 T: 70 QT: 345 QTc: 415 Interpretive Statements SINUS RHYTHM WITH SHORT MS INTERVAL BORDERLINE RIGHT AXIS DEVIATION [QRS AXIS > 90] Abnormal ECG Compared to ECG 04/21/2025 09:35:26 No significant changes Electronically Signed On 05-29-2025 6:47:32 EDT by ADEOLA CUEVAS M.D. Dictated By: ADEOLA CUEVAS Signed By: 05/29/25 0647 05/29/25 0647 DD/ 1114 TD/TT: Straddle Buggy Operator: [place] [address] Electrocardiograph Report Signed Patient: RICCARDO BARRETO MR#: [id number] : 1985 Acct:[id number] Age/Sex: 39 / F ADM Date: 05/28/25 Loc: CARD Attending Dr: Donovan Julien M.D. Ordering Physician: Donovan Julien M.D. 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 Measurements Intervals [place] Rate: 86 P: 65 MS: 112 QRS: 100 QRSD: 92 T: 70 QT: 345 QTc: 415 Interpretive Statements SINUS RHYTHM WITH SH ORT MS INTERVAL BORDERLINE RIGHT AXI S DEVIATION [QRS AXIS > 90] Abnormal ECG Compared to ECG 04/05 09:35:26 No significant changes Electronically Loreta d On 05-29-2025 6:47:32 EDT by ADEOLA CUEVAS M.D. Dictated By: ADEOLA CUEVAS Signed By: 05/29/25 0647 05/29/25 0647 DD/ 1114 TD/TT: Straddle Buggy Operator: XR chest 2V Reviewed date:05/28/2025 03:13:34 PM Interpretation: Performing Lab: Notes/Report: Source Facility: [facility] [place] [address] [place] [address] XRay Report Signed Patient: BARBARA BARRETO MR#: [id number] : 1985 Acct:[id number] Age/Sex: 39 / F ADM Date: 05/28/25 Loc: LAB Attending Dr: Donovan Julien M.D. Ordering Physician: Donovan Julien M.D. Date of Service: 05/28/25 Procedure(s): XR chest 2V Accession Number(s): [id number] cc: JOLIE HUGGINS ; Donovan Julien M.D. [place] [id number] Patient Name: BARBARA BARRETO MRN: [id number] date: 1985 Sex: F Assigned Patient Location: LAB Current Patient Location: LAB Accession/Order Number: [id number] Exam Date: 05/28/2025 13:45 Report Date: 05/28/2025 13:45 At the request of: DONOVAN JULIEN MD Procedure: XR chest 2V Chest 2 views CLINICAL HISTORY: Pre Operative Evaluation COMPARISON: Chest 03/11/2025 FINDINGS: Heart appears normal in size. Lungs are clear. No free air. XR/XR chest 2V IMPRESSION: NO ACUTE CARDIOPULMONARY ABNORMALITY. Impression dictated by: Galdino Alvarez Jr., D.O. 05/28/2025 1:45 PM Dictation Location: [place] [address] Electronically authenticated by: [id number] Y Date: 05/28/2025 13:45 Dictated By: Galdino Alvarez M.D. Signed By: 05/28/25 1347 DD/ 1345 TD/TT: Straddle Buggy Operator: [place] [address] XRay Report Signed Patient: RICCARDO BARRETO MR#: [id number] : 1985 Acct:[id number] Age/Sex: 39 / F ADM Date: 05/28/25 Loc: LAB Attending Dr: Donovan Julien M.D. Ordering Physician: Donovan Julien M.D. Date of Service: 05/28/25 Procedure(s): XR chest 2V Accession Number(s): [id number] cc: JOLIE HUGGINS ; Donovan Julien M.D. [address] [address] Patient Name: BARBARA BARRETO MRN: [facility]:[id number] date: 1985 Sex: F Assigned Patient Loc ation: LAB Current Patient Loca tion: LAB Accession/Order Numb er: [id number] Exam Date: 05/28/2025 13:45 Report Date: 05/28/2025 13:45 At the request of: DONOVAN JULIEN MD Procedure: XR chest 2V Chest 2 views CLINICAL HISTORY: Pr e Operative Evaluation COMPARISON: Chest 03/11/2025 FINDINGS: Heart appears normal in size. Lungs are clear. No free air. X R/XR chest 2V IMPRESSION: NO ACUTE CARDIOPULMO NARY ABNORMALITY. Impression dictated by: Galdino Alvarez Jr. DSlade 05/28/2025 1:45 PM Dictation Location: [place] [address] Electronically authenticated by: [id number] Y Date: 05/28/2025 13:45 Dictated By: Galdino Alvarez M.D. Signed By: 05/28/25 1347 DD/ 134 TD/TT: Straddle Buggy Operator: MRSA Screening Culture Reviewed date:06/01/2025 12:01:02 PM Interpretation: Performing Lab: Notes/Report: [facility] , MRSA Screening Culture See Below For Report MRSA Screening Culture MRSA Screening Culture Negative MRSA Screening Culture MRSA Screening Culture Performed at: [facility] MRSA Screening Culture MRSA Screening Culture [address] [place], [place] [id number] MRSA Screening Culture MRSA Screening Culture [employer] Supervisor: Nicho Penn PhD, Phone: [phone] MRSA Screening Culture Performing Lab: see note SEE REPORT - [facility] Id information not found for OBX-specific editor producer legend - [facility] LB CBC AUTO DIFF Reviewed date:05/28/2025 03:13:45 PM Interpretation: Performing Lab: Notes/Report: [facility] , White Blood Count 9.4 4.0-11.0 10 3/uL Red Blood Count 4.72 4.20-5.40 10 6/uL Hemoglobin 14.6 12.0-16.0 g/dL Hematocrit 44.7 36.0-48.0 % Mean Corpuscular Volume 94.7 81.0-99.0 fL Mean Corpuscular Hemoglobin 30.9 26.7-34.0 pg Mean Corpuscular HGB Conc 32.7 29.9-35.2 g/dL Red Cell Distribution Width 14.0 11.0-15.0 % Platelet Count 425 150-450 10 3/uL Mean Platelet Volume 8.8 9.5-13.5 fL Neutrophils Percent Auto 70.1 43.0-75.0 % Lymphocytes Percent Auto 23.2 20.5-60.0 % Monocytes Percent Auto 5.4 1.7-12.0 % Eosinophils Percent Auto 0.7 0.9-7.0 % Basophils Percent Auto 0.3 0.2-2.0 % Immature Granulocytes Pct Auto 0.3 0.0-0.5 % Neutrophils Absolute Auto 6.6 1.4-6.5 10 3/uL Lymphocytes Absolute Auto 2.2 1.2-3.8 10 3/uL Monocytes Absolute Auto 0.5 0.3-0.8 10 3/uL Eosinophils Absolute Auto 0.1 0.0-0.7 10 3/uL Basophils Absolute Auto 0.0 0.0-0.1 10 3/uL Immature Granulocytes Abs Auto 0.03 0.00-0.03 10 3/uL Performing Lab: see note ML - [facility] LB ECG 12 lead Reviewed date:04/23/2025 10:27:49 AM Interpretation: Performing Lab: Notes/Report: Source Facility: [place] [address] Electrocardiograph Report Signed Patient: BARBARA BARRETO MR#: [id number] : 1985 Acct:[id number] Age/Sex: 39 / F ADM Date: 04/21/25 Loc: ER Attending Dr: Ordering Physician: Piper Vasquez M.D. 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 Signed By: 04/21/251520 DD/ 4 TD/TT: Straddle Buggy Operator: [place] [address] Electrocardiograph Report Signed Patient: RICCARDO BARRETO MR#: [id number] : 1985 Acct:[id number] Age/Sex: 39 / F ADM Date: 04/21/25 Loc: ER Attending Dr: Ordering Physician: Piper Vasquez M.D. 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 Signed By: 04/21/251520 DD/ 4 TD/TT: Straddle Buggy Operator: RUSTY Qualitative* Reviewed date:04/23/2025 10:27:49 AM Interpretation: Performing Lab: Notes/Report: [facility] , HCG Qualitative NEGATIVE NEGATIVE Performing Lab: see note ML - [facility] LB PROF CHEM 8 (BAS METB) Reviewed date:04/23/2025 10:27:49 AM Interpretation: Performing Lab: Notes/Report: [facility] , Sodium 136 136-145 mmol/L Potassium 3.9 3.5-5.1 mmol/L Chloride 102 98-107 mmol/L Carbon Dioxide 27.4 21.0-32.0 mmol/L Anion Gap 10.5 Glucose 85 74-106 mg/dL Blood Urea Nitrogen 14.0 7.0-18.0 mg/dL Creatinine 0.85 0.55-1.02 mg/dL Estimated GFR ( Kellen >60 >=60 mL/min/1.73m 2 Estimated GFR (Non- Anushka >60 >=60 mL/min/1.73m 2 BUN Creatinine Ratio 16.5 Calcium 9.0 8.5-10.1 mg/dL Performing Lab: see note ML - [facility] PROF CHEM 8 (Herzio METB) Reviewed date:03/31/2025 10:08:09 AM Interpretation: Performing Lab: Notes/Report: [facility] , Sodium 145 136-145 mmol/L Potassium [...] mg/dL Performing Lab: see note ML - [facility] CBC AUTO DIFF Reviewed date:03/31/2025 10:08:09 AM Interpretation: Performing Lab: Notes/Report: [facility] , White Blood Count 7.2 [...] 3/uL Performing Lab: see note ML - [facility] LB BNP Reviewed date:03/31/2025 10:08:09 AM Interpretation: Performing Lab: Notes/Report: [facility] , NT Pro B Type Natriuretic Pept 31.0 <=450.0 pg/mL Performing Lab: see note ML - [facility] LB Reason For Referral Reason sciatica Diagnosis 1 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) Referral Organization [facility] Referring Provider First Name Jolie Referring Provider Last Name Trina Referring Provider Speciality Family Med roel Referred Provider Donovan Bose Referred Provider Specialty Orthopedic S urgery Referral Priority Routine Social History Tobacco Use: Social History Observation [...] Status W/U Status Risk Notes Problem Anxiety (76146337) Anxiety (F41.9) Active confirmed Problem Arthritis (1892087) Arthritis (M19.90) Active confirmed Problem Cervical disc disorder (707149134) DDD (degenerative disc disease), cervical (M50.30) Active confirmed Problem Lumbago with sciatica (271368990) 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) Active confirmed Vital Signs Blood pressure diastolic 82 mm Hg 06/15/2025 Height 69 in 06/15/2025 Blood pressure systolic 122 mm Hg 06/15/2025 Weight 147 lbs 06/15/2025 BMI 21.71 kg/m2 06/15/2025 Procedures Procedure Date Ordered Date Performed Result Body Sit e CARDIO Stress Test - Treadmill Exercise 03/13/2025 N/A *CARDIO Stress Test - Lexiscan Nuclear 06/15/2025 N/A Encounters Encounter Location Date Provider Diagnosis [address] [address] 03/13/2025 Jolie Trina Intermittent chest p ain R07.9 and Sciatica associated with disorder of lumbar spine M53.[address] [address] 06/15/2025 Jolie Huggins Encounter for other preprocedural examination Z01.[address] [address] 03/31/2025 Jolie Huggins Wellness examination Z00.[address] [address] 06/15/2025 Jolie Huggins Intermittent chest p ain R07.9 Assessments Encounter Date Diagnosis (ICD Code) Assessment Notes Treatment Notes Treatment Clinical Notes Section Notes 03/13/2025 Intermittent chest pain (ICD-10 - R07.9) 03/13/2025 Sciatica associated with disorder of lumbar spine (ICD-10 - M53.9) referral to neurosurg recent hospital stay 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 06/15/2025 Encounter for other preprocedural examination (ICD-10 - Z01.818) labs reviewed, ok chest xray looks good ekg not perfect, also treadmill stress not perfect needs chemical stress before surgery 03/31/2025 Wellness examination (ICD-10 - Z00.00) 06/15/2025 Intermittent chest pain (ICD-10 - R07.9) Plan Of Treatment Pending Test Test Name Order Date HEMOGLOBIN A1C (GLYCO) 03/31/2025 IRON, TOTAL 03/31/2025 LIPID PANEL (CHOL/TRIG/HDL/LDL) 03/31/20 25 VITAMIN D, 25 LEVEL (TOTAL) 03/31/2025 CARDIO Stress Test - Treadmill Exercise 03/13/2025 Insulin Level 03/31/2025 THYROID PANEL (T4/TSH/FREE T3) *CARDIO Stress Test - Lexiscan Nuclear 0 06/15/2025 CMP (COMP MET AMARO) w/eGFR CKD-EPI 2024 CBC WITH DIFF 03/31/2025 Insurance Providers Payer Name Payer Address Payer Phone Subscriber Number Group Number Insured Name Patient Relationship to Insured Coverage Start Date Coverage End Date [employer] [place] [employer] [address] [address] [place] [address] [id number] Barbara Barreto Self - patient is the insured Medical (General) History Medical History History ICD Code Arthritis M19.90 Anxiety F41.9 Depression F32.A Surgical History Surgery Date(Month/Year) Neck Fusion Interventional Spine injections Knee arthroscopy Hospitalization History Reason Date(Month/Year) Lumbar Spine pain 03/06/2025
--- OUTSIDE RECORDS SUMMARY | 2025-06-18 10:01 | XMS_ITS | Patient Health Record ---
Author Organization [facility] Address [address] [place] [address] Care Team Providers Care Still Operator Whiskey Name Role Phone Jolie Huggins Primary Care Provider Tiffanie Velasco Unavailable [phone] Lionel Daley Unavailable [phone] Bridgett June Unavailable Results Component Value Reference Range Notes Surgery Scheduling (Not yet reviewed by provider) Interpretation:Pre-Op orders: CBC,BMP,PT/PTT, TYPE AND SCREEN,EKG,Chest X- ray,MRSA NASAL SWAB Performing Lab: Notes/Report: Pre-Op orders: CBC,BMP,PT/PTT, TYPE AND SCREEN,EKG,Chest X-ray,MRSA NASAL SWAB Primary Insurance Company: MEDICAID [place] Surgeon/Assist: ST DOWELL/YUNI OR LIONEL Surgery Location: [facility] Surgery Date & Time: 06/23/25 12:15PM Hosp arrival time day of: 10:15PM Surgery End Time: 2:15PM Procedure: L5-S1 DECOMPRESSION AND FUSION Special Equipment: SSEP, PRONE, ANIRUDH TABLE, SURGALIGN Diagnosis: M50.30 DDD Admission Type: INPATIENT Anesthesia Type/CPNB: GENERAL Post-op Appointment Date: 08/06/25 @ 1:10PM FLAVIA Lab Location: [facility] Lab Date/Time: IAM Foxing Cutting Machine Operator: IRMA Pedraza Physician: JOLIE Pedraza Appt Date/T 06/15/25 @ 10:00AM History & Physical Appointme nt Date/: 06/12/25 @ 11:20AM Reason For Referral Reason sciatica Diagnosis 1 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 General Notes Fern Yanez 10/2025 07:40:40 AM >LUMBAR PAIN, LVM/SENT TEXT REF/Pedro Pablo HUGGINS ([facility] NEED INSURANCE Referral Priority Routine Reason APPROVED OUTPATIENT.................................06/23/25.............................. WANG YARELY L5-S1 DECOMPRESSION AND FUSION 45427, 62053, 61537, 19816 Diagnos is 1 DDD (degenerative disc disease), cervica l (M50.30) Diagnos is 2 Degeneration of intervertebral disc of l umbosacral region with discogenic back pain and lower extremity pain (M51.372) Diagnos is 3 Other intervertebral disc displacement, 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) Referra l [facility] Referri ng Provide r First Name Tiffanie Referri ng Provide r Last Name [facility] Referri ng Provide r Special ity Orthopedic Surgery Referre d [facility] Referre d Address [address], [place],[id number],[place] Procedu re 1 Arthrodesis, posterior lumbar, 1 lumbar level (73336) Procedu re 2 Laminectomy, facetectomy and foraminotom y single lumbar (53583) Procedu re 3 Posterior non-segmental instrumentation (39411) Procedu re 4 Autograft for spine surgery only; local obtained from same incision (32820) General Notes Raeann Rosa 05/19/2025 09:35:05 AM > OU TPATIENT AUTHORIZATION REQUEST SUBMITTED WITH CLINICALS VIA [employer], PENDING AUTHORIZATION # [id number], Raeann Rosa 05/20/2025 08:28:40 AM > PENDING WITH WANG.Moe Kayla 05/26/2025 08:03:42 AM > PENDING WITH WANG.Moe Kayla 05/26/2025 02:04:17 PM > AUTHORIZATION # [id number] APPROVED OUTPATIENT AND VALID 06/23/25-09/21/25 PER FAX BACK FROM [facility]. PLEASE CHANGE TO OUTPATIENT AND SEND BACK TO ME SO I CAN FAX TO [facility]., Lonnie Roblesn 05/28/2025 01:41:54 PM >CHANGED TO OUTPATIENT, Sincere Elsa 06/01/2025 02:02:19 PM > FAXED TO [facility], Raeann Rosa 06/05/2025 07:29:56 AM > [facility] ACTIVE FOR JUNE PER [facility] PROVIDER PORTAL. Referra l Priorit y Routine Problems Problem Type SNOMED Code ICD Code Onset Dates Problem Status W/U Status Risk Notes Problem 02267985 Other intervertebral disc displacement, 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) Active confirmed Problem 08040112 DDD (degenerativ e disc disease), cervical (M50.30) Active confirmed Problem 44097434 Degeneration of intervertebral disc of lumbosacral region with discogenic back pain and lower extremity pain (M51.372) Active confirmed Vital Signs Height 5FT 9 IN in 06/12/2025 Weight 140 lbs 06/12/2025 BMI 20.67 06/12/2025 Procedures Procedure Date Ordered Date Performed Result Body Sit e EKG 05/19/2025 N/A Encounters Encounter Location Date Provider Diagnosis [facility] [address] [place] [phone] 06/12/2025 Lionel Diglio Degeneration of intervertebral disc of lumbosacral region with discogenic back pain and lower extremity pain M51.372 and Other intervertebral disc displacement, lumbosacral region M51.27 [facility] [address] [place] [address] [place] [address] 04/10/2025 Bridgett [facility] Degeneration of intervertebral disc of lumbosacral region with discogenic back pain and lower extremity pain M51.372 and Other intervertebral disc displacement, lumbosacral region M51.27 [facility] [address] [place] [phone] 05/01/2025 Lionel Diglio DDD (degenerative disc disease), cervical M50.30 [facility] [address] [place] [address] 05/19/2025 Tiffanie Bose Other intervertebral disc displacement, lumbosacral region M51.27 ; DDD (degenerative disc disease), cervical M50.30 and Degeneration of intervertebral disc of lumbosacral region with discogenic back pain and lower extremity pain M51.372 [facility] [place] [facility] [place] [address] [place] [address] 06/16/2025 Tiffanie Bose Assessments Encounter Date Diagnosis (ICD Code) Assessment [...] (degenerative disc disease), cervical (ICD-10 - M50.30) 06/12/2025 Degeneration of intervertebral disc of lumbosacral region with discogenic back pain and lower extremity pain (ICD-10 - M51.372) 05/19/2025 Degeneration of intervertebral disc of lumbosacral region with discogenic back pain and lower extremity pain (ICD-10 - M51.372) 06/12/2025 Other intervertebral disc displacement, lumbosacral region (ICD-10 - M51.27) 04/10/2025 Other Plan established by Dr. Julien. Patient evaluated by myself and Dr. Julien today. We did review patient's MRI results with her and will get her into physical therapy as she is not tried this in a long time since living in [place]. If her pain persists we did discuss [...] Name Order Date Chest 2 views - 07618 05/19/2025 Lumbar spine, 4v flex ext - 88394 2024 CBC 05/19/2025 PT/PTT 05/19/2025 BMP 05/19/2025 Surgery Scheduling 05/19/2025 MRSA (Bilateral Nares) PCR 05/19/2025 SFS - Lumbar Spine PT Order, Isometrics & Strenghening w/Modalities as needed, 2-3 times per week for 6 weeks 04/10/2025 EKG 05/19/2025 Next Appt Details Provider Name:Tiffanie Nunez Cl air, 06/23/2025 11:50:00 AM, [address] [place], [place], [phone], Provider Name:Jimmielondon Vijaya St Li air, 08/06/2025 01:10:00 PM, [address] [place] [address], [phone], Insurance Providers Payer Name Payer Address Payer Phone Subscriber Number Group Number Insured Name Patient Relationship to Insured Coverage Start Date Coverage End Date Medicaid [place] [address] [place] [phone] [id number] DONALDO AMBROCIO Self - patient is the insured
--- OUTSIDE RECORDS SUMMARY | 2025-06-18 10:07 | XMS_ITS | CCD ---
Author Organization [facility] Care Team Providers Care Film Library Clerk Name Role Phone Unavailable Primary Care Provider Unavailabl e Tao BOBBY - David VILLAGRAN Primary Care Provi talib Tao BOBBY - David VILLAGRAN Primary Care Provi talib David Thomson Unavailable Unavailable Unavailable DANY RED Attending Unavailable David Thomson Primary Care Provider Tao BOBBY - David VILLAGRAN Primary Care Provi talib David Thomson Primary Care Provider [phone] HAL PRADO Attending Unavailab DAVID Bustamante Primary [...] DAVID THOMSON Primary Care Unavailable ANAHY CORREA [id number] Attending Unavailable DAVID THOMSON Primary Care Unavailable VANDANA JAUREGUI Attending Unavailable ALLEN LINDA Referring Unavailable DAVID THOMSON Primary Care Unavailable Kan Post MD Attending Provider [phone] Kan Post Attending Unavailable Kan Post Admitting [...] Care Unavailable ELY, P. ARIANNE Attending Unavailable WILMAR COKER Attending Unavailabl e GENERIC PROVIDER, NO ASSIGNED PCP Primary Care Unavailable Allergies Allergy Classification Reported Allergen(s) Allergy Type Date of Onset Reaction(s) Facility (20 sources) traMADol; Translations: [Tramadol] Drug Allergy 1 Unknown, Rash [facility] Work Phone: (5 sources) Amoxapine And Related Propensity to adverse reactions to drug 1 [facility] (20 sources) Amoxicillin; Translations: [Amoxicillin TABS] Drug Allergy 2 Rash, Hives [facility] (11 sources) hydrOXYzine; Translations: [Hydroxyzines] Drug Allergy 2 Itching, Unknown [facility] (2 sources) hydrOXYzine; Translations: [HYDROXYZINE] Drug Allergy 2 [facility] Other [place] Repository (1 source) Amoxicillin Drug Allergy 5 [facility] Repository (1 source) traMADol Drug Allergy 5 [facility] Repository Medications Current Medications Medication Drug Class(es) Dates Sig (Normalized) Sig (Original) [id number] 200 actuat albuterol 0.09 mg/actuat metered dose [...] 24 End: 09-25-20 24 bacitracin-polymyxin b (POLYSPORIN) [id number] UNIT/GM ointment Apply topically 2 times daily. [...] 3 days. for pain. polyethylene glycol 3350 [id number] mg / potassium chloride 1480 mg / sodium bicarbonate 5720 mg / sodium chloride 70154 mg powder for oral solution (1 source) [...] mg Start: 08-10-2022 take 2 tablets by [facility] every six hours as needed for pain [...] Comment on above: Take 2 tablets by [facility] every 6 hours as needed for pain. [...] Comment on above: Take 1 tablet by [facility] twice daily with meals. ceFAZolin (ANCEF) 2000 [...] on above: Take 1 capsule by mo [facility] one time a week for 15 [...] Comment on above: Take 1 capsule by [facility] daily at bedtime. ondansetron 4 mg disintegrating [...] Start: 06-13-2022 take 9 tablets by mo [facility] once at mealtime predniSONE 10 MG [...] [Bipolar disorder, unspecified] Onset: 11-22-2021 11-22-2021 Chronic Nutritional deficiencies (2 sources) Vitamin D deficiency; [...] unspecified duration, subsequent encounter] Onset: 05-01-2023 Episodic Nonspecific chest pain (7 sources) Chest pain; Translations: [Chest pain, unspecified] Onset: 07-21-2024 07-22-2024 Episodic Other gastrointestinal disorders (9 sources) Constipation; [...] bacterial skin contaminants 2 Days PERFORMED BY: [place] [address] PATHOLOGIST SOFTWARE SUPPORT REPRESENTATIVE BETY FISCHER M.D. Normal [facility] Comment on above: Performed By: #### C UU #### [address] Basic Metabolic Panelon 01-03 Orlando Mckeon Rate - PINF [facility] Comment on above: These results are not [...] Interpretation and review of laboratory results Abnormal [facility] Urea nitrogen/Creatinin e [Mass ratio] 14 mg/mg 9 - 20 [facility] Basic Metabolic Profon 01-13 Anion gap [Moles/Vol] 12 mmol/L Normal -16 [facility] Comment on above: Performed By: #### B DEVYN NEAL CDP #### [facility] [address] [place] [address] [place] [address] Warp Doffer: Tray Stapleton MD BUN/CRE Ratio 14 Normal - [facility] Comment on above: Performed By: #### B DEVYN NEAL, CDP #### [address] [place] [address] Warp Doffer: Tray Stapleton MD Calcium [Mass/Vol] 8.6 mg/dL Normal 8.6-10.4 [facility] Comment on above: Performed By: #### B DEVYN NEAL CDP #### [address] [place] [address] Warp Doffer: Tray Stapleton MD Chloride [Moles/Vol] 105 mmol/L Normal 98-107 [facility] Comment on above: Performed By: #### B DEVYN NEAL, CDP #### [address] [place] [address] Warp Doffer: Tray Stapleton MD CO2 [Moles/Vol] 22 mmol/L Normal 20-31 [facility] Comment on above: Performed By: #### B DEVYN NEAL, CDP #### [address] [place] [address] Warp Doffer: Tray Stapleton MD Creatinine [Mass/Vol] 0.8 mg/dL Normal 0.50-0.90 [facility] Comment on above: Performed By: #### B DEVYN NEAL, CDP #### [address] [place] [address] Warp Doffer: Tray Stapleton MD GFR/1.73 sq M.predicted among non-blacks MDRD (S/P/Bld) [Vol rate/Area] mL/min/{1.73_m2} Normal >60 [facility] Comment on above: Result Comment: These results [...] By: #### B DEVYN NEAL, CDP #### [address] [place] [address] Warp Doffer: Tray Stapleton MD Glucose [Mass/Vol] 118 mg/dL High 74-99 [facility] Comment on above: Performed By: #### B DEVYN NEAL, CDP #### [address] [place] [address] Warp Doffer: Tray Stapleton MD Potassium [Moles/Vol] 4.2 mmol/L Normal 3.7-5.3 [facility] Comment on above: Performed By: #### B DEVYN NEAL, CDP #### [address] [place] [address] Warp Doffer: Tray Stapleton MD Sodium [Moles/Vol] 139 mmol/L Normal 136-145 [facility] Comment on above: Performed By: #### B DEVYN NEAL, CDP #### [address] [place] [address] Warp Doffer: Tray Stapleton MD Urea nitrogen [Mass/Vol] 11 mg/dL Normal 6-20 [facility] Comment on above: Performed By: #### B DEVYN NEAL, JOHANNA #### [facility] [address] [place] [address] Warp Doffer: Tray Stapleton MD CBC with Auto Differentialon 01-13-2025 Basophils (Bld) [#/Vol] 0.03 10*3/uL [facility] Basophils/100 WBC (Bld) 0 % 0 - 2 % [facility] Eosinophils (Bld) [#/Vol] 0.12 10*3/uL [facility] Eosinophils/100 WBC (Bld) 2 % 1 - 4 % [facility] Erythrocyte distribution width (RBC) [Ratio] 13.8 % 11.8 - 14.4 % [facility] Hematocrit (Bld) [Volume fraction] 38 % 36.3 - 47.1 % [facility] Hemoglobin (Bld) [Mass/Vol] 12.9 g/dL 11.9 - 15.1 g/dL [facility] Immature granulocytes (Bld) [#/Vol] [facility] Immature granulocytes/100 WBC (Bld) 0 % 0 [facility] Lymphocytes/100 WBC (Bld) 35 % 24 - 43 % [facility] Lymphocytes/100 WBC (Bld) 2.57 % [facility] MCH (RBC) [Entitic mass] 31.2 pg 25.2 - 33.5 pg [facility] MCHC (RBC) [Mass/Vol] 33.9 g/dL 28.4 - 34.8 g/dL [facility] MCV (RBC) [Entitic vol] 91.8 fL 82.6 - 102.9 fL [facility] Monocytes/100 WBC (Bld) 9 % 3 - 12 % [facility] Monocytes/100 WBC (Bld) 0.67 % [facility] Neutrophils/100 WBC (Bld) 54 % 36 - 65 % [facility] Nucleated RBC/100 WBC (Bld) [Ratio] 0 % 0.0 per 100 WBC [facility] Platelet mean volume (Bld) [Entitic vol] 8.5 fL 8.1 - 13.5 fL [facility] Platelets (Bld) [#/Vol] 440 10*3/uL [facility] RBC (Bld) [#/Vol] 4.14 10*6/uL 3.95 - 5.1 1 m/uL [facility] Segmented neutrophils/100 WBC (Bld) 3.99 % [facility] WBC other (Bld) [#/Vol] 7.4 [facility] CBC with Diffon 01-13-2025 Abs. Basophil 0.03 k/uL Normal 0.00-0.20 [facility] Comment on above: Performed By: #### B DEVYN NEAL CDP #### [facility] [address] [place] [address] [place] [id number] Warp Doffer: Tray Stapleton MD Abs.Imm.Granulocyt e <0.03 Normal 0.00-0.30 [facility] Comment on above: Performed By: #### B DEVYN NEAL CDP #### [address] [place], [facility]83 Warp Doffer: Tray Stapleton MD Abs.Neutrophil (Seg) 3.99 k/uL Normal 1.50-8.10 [facility] Comment on above: Performed By: #### B DEVYN NEAL CDP #### [facility] [address] [place] [address] Dr. [place], [facility]83 Warp Doffer: Tray Stapleton MD Basophils/100 WBC (Bld) 0 % Normal 0-2 [facility] Comment on above: Performed By: #### B DEVYN NEAL, CDP #### [facility] [address] [place] [address] Dr. [place], [facility]83 Warp Doffer: Tray Stapleton MD Eosinophils (Bld) [#/Vol] 0.12 10*3/uL Normal 0.00-0.44 [facility] Comment on above: Performed By: #### B DEVYN NEAL, CDP #### [address] [place], [place] [id number] Warp Doffer: Tray Stapleton MD Eosinophils/100 WBC (Bld) 2 % Normal 1-4 [facility] Comment on above: Performed By: #### B DEVYN NEAL, CDP #### [address] [place], [facility]83 Warp Doffer: Tray Stapleton MD Erythrocyte distribution width (RBC) [Ratio] 13.8 % Normal 11.8-14.4 [facility] Comment on above: Performed By: #### B DEVYN NEAL, CDP #### [address] [place] [id number] Warp Doffer: Tray Stapleton MD Hematocrit (Bld) [Volume fraction] 38.0 % Normal 36.3-47.1 [facility] Comment on above: Performed By: #### B DEVYN NEAL, CDP #### [address] [place], [facility]83 Warp Doffer: Tray Stapleton MD Hemoglobin (Bld) [Mass/Vol] 12.9 g/dL Normal 11.9-15.1 [facility] Comment on above: Performed By: #### B DEVYN NEAL, CDP #### [address] [place], [facility]83 Warp Doffer: Tray Stapleton MD Immature granulocytes/100 WBC (Bld) 0 % Normal 0 [facility] Comment on above: Performed By: #### B DEVYN NEAL, CDP #### [address] [place], [facility]83 Warp Doffer: Tray Stapleton MD Lymphocytes (Bld) [#/Vol] 2.57 10*3/uL Normal 1.10-3.70 [facility] Comment on above: Performed By: #### B DEVYN NEAL, CDP #### [facility] [address] [place], [place] [phone] Warp Doffer: Tray Stapleton MD Lymphocytes/100 WBC (Bld) 35 % Normal 24-43 [facility] Comment on above: Performed By: #### B DEVYN NEAL, CDP #### [facility] [address] [place], [facility]83 Warp Doffer: Tray Stapleton MD MCH (RBC) [Entitic mass] 31.2 pg Normal 25.2-33.5 [facility] Comment on above: Performed By: #### B DEVYN NEAL, CDP #### [address] [place], [facility]83 Warp Doffer: Tray Stapleton MD MCHC (RBC) [Mass/Vol] 33.9 g/dL Normal 28.4-34.8 [facility] Comment on above: Performed By: #### B DEVYN NEAL, CDP #### [address] [place], [facility]83 Warp Doffer: Tray Stapleton MD MCV (RBC) [Entitic vol] 91.8 fL Normal 82.6-102.9 [facility] Comment on above: Performed By: #### B DEVYN NEAL, CDP #### [address] [place], [facility]83 Warp Doffer: Tray Stapleton MD Monocytes (Bld) [#/Vol] 0.67 10*3/uL Normal 0.10-1.20 [facility] Comment on above: Performed By: #### B DEVYN NEAL, CDP #### [address] [place] [address] Warp Doffer: Tray Stapleton MD Monocytes/100 WBC (Bld) 9 % Normal 3-12 [facility] Comment on above: Performed By: #### B DEVYN NEAL, CDP #### [facility] [address] [place], [place] [phone] Warp Doffer: Tray Stapleton MD Neutrophil (Seg) 54 % Normal 36-65 [facility] Comment on above: Performed By: #### B DEVYN NEAL, CDP #### [facility] [address] [place], [place] [phone] Warp Doffer: Tray Stapleton MD NRBC Automated 0.0 per 100 WBC Normal 0.0 [facility] Comment on above: Performed By: #### B DEVYN NEAL, CDP #### [facility] [address] [place], [place] [phone] Warp Doffer: Tray Stapleton MD Platelet mean volume (Bld) [Entitic vol] 8.5 fL Normal 8.1-13.5 [facility] Comment on above: Performed By: #### B DEVYN NEAL, CDP #### [address] [place], [place] [phone] Warp Doffer: Tray Stapleton MD Platelets (Bld) [#/Vol] 440 10*3/uL Normal 138-453 [facility] Comment on above: Performed By: #### B DEVYN NEAL, CDP #### [address] [place], [place] [phone] Warp Doffer: Tray Stapleton MD RBC (Bld) [#/Vol] 4.14 10*6/uL Normal 3.95-5.11 [facility] Comment on above: Performed By: #### B DEVYN NEAL, CDP #### [facility] [address] [place], [place] [phone] Warp Doffer: Tray Stapleton MD WBC (Bld) [#/Vol] 7.4 10*3/uL Normal 3.5-11.3 [facility] Comment on above: Performed By: #### B DEVYN NEAL, CDP #### [address] [place], [place] [phone] Warp Doffer: Tray Stapleton MD No Panel Informationon 01-13 [facility] Troponinon 01-13-2025 Troponin, High Sens <6 Normal 0-14 [facility] Comment on above: Result Comment: High Sensitivity Troponin values cannot be compared with other Troponin methodologies. Performed By: #### B MP, TROPI, CDP #### [facility] [address] [place], [place] [phone] Warp Doffer: Tray Stapleton MD Troponin I.cardiac High sensitivity method [Mass/Vol] ng/L 0 - 14 ng/L [facility] Comment on above: High Sensitivity Tro ponin [...] Raheem Bray MD 01/13/25 Final result Normal [facility] CBC with Auto Differentialon 12-20-2024 Basophils (Bld) [#/Vol] [facility] Immature granulocytes (Bld) [#/Vol] [facility] Lymphocytes/100 WBC (Bld) 2.17 % [facility] Monocytes/100 WBC (Bld) 0.55 % [facility] Neutrophils/100 WBC (Bld) 65 % 36 - 65 % [facility] Nucleated RBC/100 WBC (Bld) [Ratio] 0.0 % 0.0 per 100 WBC [facility] Segmented neutrophils/100 WBC (Bld) 5.18 % [facility] WBC other (Bld) [#/Vol] 8.0 [facility] CBC with Diffon 12-20-2024 Basophils/100 WBC (Bld) 0 % Normal 0-2 [facility] Comment on above: Performed By: #### C DP, CP, TROPI #### [address] [place] [phone] Warp Doffer: Tray Stapleton MD Eosinophils (Bld) [#/Vol] 0.05 10*3/uL Normal 0.00-0.44 [facility] Comment on above: Performed By: #### C DP, CP, TROPI #### [address] [place] [phone] Warp Doffer: Tray Stapleton MD Eosinophils/100 WBC (Bld) 1 % Normal 1-4 [facility] Comment on above: Performed By: #### C DP, CP, TROPI #### [address] [place] [phone] Warp Doffer: Tray Stapleton MD Erythrocyte distribution width (RBC) [Ratio] 13.6 % Normal 11.8-14.4 [facility] Comment on above: Performed By: #### C DP, CP, TROPI #### [address] [place], [place] [phone] Warp Doffer: Tray Stapleton MD Hematocrit (Bld) [Volume fraction] 41.7 % Normal 36.3-47.1 [facility] Comment on above: Performed By: #### C DP, CP, TROPI #### [address] [place] [phone] Warp Doffer: Tray Stapleton MD Hemoglobin (Bld) [Mass/Vol] 14.0 g/dL Normal 11.9-15.1 [facility] Comment on above: Performed By: #### C DP, CP, TROPI #### [address] [place] [address] Warp Doffer: Tray Stapleton MD Immature granulocytes/100 WBC (Bld) 0 % Normal 0 [facility] Comment on above: Performed By: #### C DP, CP, TROPI #### [address] [place] [address] Warp Doffer: Tray Stapleton MD Lymphocytes/100 WBC (Bld) 27 % Normal 24-43 [facility] Comment on above: Performed By: #### C DP, CP, TROPI #### [address] [place] [phone] Warp Doffer: Tray Stapleton MD MCH (RBC) [Entitic mass] 30.9 pg Normal 25.2-33.5 [facility] Comment on above: Performed By: #### C DP, CP, TROPI #### [address] [place] [phone] Warp Doffer: Tray Stapleton MD MCHC (RBC) [Mass/Vol] 33.6 g/dL Normal 28.4-34.8 [facility] Comment on above: Performed By: #### C DP, CP, TROPI #### [address] [place] [address] Warp Doffer: Tray Stapleton MD MCV (RBC) [Entitic vol] 92.1 fL Normal 82.6-102.9 [facility] Comment on above: Performed By: #### C DP, CP, TROPI #### [address] [place] [phone] Warp Doffer: Tray Stapleton MD Monocytes/100 WBC (Bld) 7 % Normal 3-12 [facility] Comment on above: Performed By: #### C DP, CP, TROPI #### [address] [place] [address] Warp Doffer: Tray Stapleton MD Platelet mean volume (Bld) [Entitic vol] 8.8 fL Normal 8.1-13.5 [facility] Comment on above: Performed By: #### C DP, CP, TROPI #### [facility] [address] [place], [place] [address] Warp Doffer: Tray Stapleton MD Platelets (Bld) [#/Vol] 388 10*3/uL Normal 138-453 [facility] Comment on above: Performed By: #### C DP, CP, TROPI #### [facility] [address] [place] [address] Warp Doffer: Tray Stapleton MD RBC (Bld) [#/Vol] 4.53 10*6/uL Normal 3.95-5.11 [facility] Comment on above: Performed By: #### C DP, CP, TROPI #### [address] [place] [address] Warp Doffer: Tray Stapleton MD Abs. Basophil <0.03 Normal 0.00-0.20 [facility] Comment on above: Performed By: #### C DP, CP, TROPI #### [address] [place], [place] [address] Warp Doffer: Tray Stapleton MD Abs.Imm.Granulocyt e <0.03 Normal 0.00-0.30 [facility] Comment on above: Performed By: #### C DP, CP, TROPI #### [address] [place], [place] [address] Warp Doffer: Tray Stapleton MD Abs.Neutrophil (Seg) 5.18 k/uL Normal 1.50-8.10 [facility] Comment on above: Performed By: #### C DP, CP, TROPI #### [address] [place], [facility]83 Warp Doffer: Tray Stapleton MD Lymphocytes (Bld) [#/Vol] 2.17 10*3/uL Normal 1.10-3.70 [facility] Comment on above: Performed By: #### C DP, CP, TROPI #### [facility] [address] [place] [address] Warp Doffer: Tray Stapleton MD Monocytes (Bld) [#/Vol] 0.55 10*3/uL Normal 0.10-1.20 [facility] Comment on above: Performed By: #### C DP, CP, TROPI #### [facility] [address] [place] [address] Warp Doffer: Tray Stapleton MD Neutrophil (Seg) 65 % Normal 36-65 [facility] Comment on above: Performed By: #### C CEM CP, TROPI #### [facility] [address] [place], [place] [phone] Warp Doffer: Tray Stapleton MD NRBC Automated 0.0 per 100 WBC Normal 0.0 [facility] Comment on above: Performed By: #### C CEM CP, TROPI #### [address] [place], [place] [phone] Warp Doffer: Tray Stapleton MD WBC (Bld) [#/Vol] 8.0 10*3/uL Normal 3.5-11.3 [facility] Comment on above: Performed By: #### C CEM CP, TROPI #### [address] [place], [place] [id number] Warp Doffer: Tray Stapleton MD Comp Metabolic Profon 2024 Albumin [Mass/Vol] 4.7 g/dL Normal 3.5-5.2 [facility] Comment on above: Performed By: #### C CEM CP, TROPI #### [facility] [address] [place] [address] Warp Doffer: Tray Stapleton MD Albumin/Glob Ratio 1.6 Normal 1.0-2.5 [facility] Comment on above: Performed By: #### C DP, CP, TROPI #### [facility] [address] [place], [place] [phone] Warp Doffer: Tray Stapleton MD Alkaline Phos 84 U/L Normal 35-104 [facility] Comment on above: Performed By: #### C DP, CP, TROPI #### [facility] [address] [place], [place] [phone] Warp Doffer: Tray Stapleton MD ALT [Catalytic activity/Vol] 6 U/L Low 10-35 [facility] Comment on above: Performed By: #### C DP, CP, TROPI #### [facility] [address] [place], [place] [phone] Warp Doffer: Tray Stapleton MD Anion gap [Moles/Vol] 11 mmol/L Normal 9-16 [facility] Comment on above: Performed By: #### C DP, CP, TROPI #### [facility] [address] [place], [place] [id number] Warp Doffer: Tray Stapleton MD AST [Catalytic activity/Vol] 23 U/L Normal 10-35 [facility] Comment on above: Performed By: #### C DP, CP, TROPI #### [address] [place], [place] [id number] Warp Doffer: Tray Stapleton MD Bilirubin [Mass/Vol] 0.3 mg/dL Normal 0.00-1.20 [facility] Comment on above: Performed By: #### C DP, CP, TROPI #### [facility] [address] [place], [place] [phone] Warp Doffer: Tray Stapleton MD BUN/CRE Ratio 14 Normal 9-20 [facility] Comment on above: Performed By: #### C DP, CP, TROPI #### [address] [place], [place] [phone] Warp Doffer: Tray Stapleton MD Calcium [Mass/Vol] 8.9 mg/dL Normal 8.6-10.4 [facility] Comment on above: Performed By: #### C GABBY PRIEST, TROPI #### [facility] [address] [place] [address] Warp Doffer: Tray Stapleton MD Chloride [Moles/Vol] 103 mmol/L Normal 98-107 [facility] Comment on above: Performed By: #### C CEM CP, TROPI #### [facility] [address] [place] [address] Warp Doffer: Tray Stapleton MD CO2 [Moles/Vol] 26 mmol/L Normal 20-31 [facility] Comment on above: Performed By: #### C GABBY PRIEST, TROPI #### [facility] [address] [place] [address] Warp Doffer: Tray Stapleton MD Creatinine [Mass/Vol] 0.8 mg/dL Normal 0.50-0.90 [facility] Comment on above: Performed By: #### C GABBY PRIEST, TROPI #### [facility] [address] [place] [address] Warp Doffer: Tray Stapleton MD GFR/1.73 sq M.predicted among non-blacks MDRD (S/P/Bld) [Vol rate/Area] mL/min/{1.73_m2} Normal >60 [facility] Comment on above: Result Comment: These results [...] C CEM CP, TROPI #### [facility] [address] [place], [place] [phone] Warp Doffer: Tray Stapleton MD Glucose [Mass/Vol] 98 mg/dL Normal 74-99 [facility] Comment on above: Performed By: #### C DP CP, TROPI #### [facility] [address] [place], [place] [id number] Warp Doffer: Tray Stapleton MD Potassium [Moles/Vol] 3.8 mmol/L Normal 3.7-5.3 [facility] Comment on above: Performed By: #### C DP, CP, TROPI #### [facility] [address] [place], [place] [phone] Warp Doffer: Tray Stapleton MD Protein [Mass/Vol] 7.7 g/dL Normal 6.6-8.7 [facility] Comment on above: Performed By: #### C CEM CP, TROPI #### [facility] [address] [place], [place] [id number] Warp Doffer: Tray Stapleton MD Sodium [Moles/Vol] 140 mmol/L Normal 136-145 [facility] Comment on above: Performed By: #### C CEM CP, TROPI #### [facility] [address] [place], [place] [id number] Warp Doffer: Tray Stapleton MD Urea nitrogen [Mass/Vol] 11 mg/dL Normal 6-20 [facility] Comment on above: Performed By: #### C DP, CP, TROPI #### [facility] [address] [address] [place], [place] [id number] Warp Doffer: Tray Stapleton MD Comprehensive Metabolic Pane [facility] 12-20-2024 Albumin [Mass/Vol] 4.7 g/dL 3.5 - 5.2 g/dL [facility] Albumin/Globulin [Mass ratio] 1.6 {ratio} 1.0 - 2.5 [facility] ALP [Catalytic activity/Vol] 84 U/L 35 - 104 U/L [facility] ALT [Catalytic activity/Vol] 6 U/L Low 10 - 35 U/L [facility] Anion gap [Moles/Vol] 11 mmol/L 9 - 16 mmol/L [facility] AST [Catalytic activity/Vol] 23 U/L 10 - 35 U/L [facility] Bilirubin [Mass/Vol] 0.3 mg/dL 0.00 - 1.20 mg/dL [facility] Calcium [Mass/Vol] 8.9 mg/dL 8.6 - 10. 4 mg/dL [facility] Chloride [Moles/Vol] 103 mmol/L 98 - 107 mmol/L [facility] CO2 [Moles/Vol] 26 mmol/L 20 - 31 mmol/L [facility] Creatinine [Mass/Vol] 0.8 mg/dL 0.50 - 0.90 mg/dL [facility] Est, Glom Filt Rate - PINF [facility] Comment on above: These results are not [...] [Mass/Vol] 98 mg/dL 74 - 99 mg/dL [facility] Interpretation and review of laboratory results Abnormal [facility] Potassium [Moles/Vol] 3.8 mmol/L 3.7 - 5.3 mmol/L [facility] Protein [Mass/Vol] 7.7 g/dL 6.6 - 8.7 g/dL [facility] Sodium [Moles/Vol] 140 mmol/L 136 - 145 mmol/L [facility] Urea nitrogen [Mass/Vol] 11 mg/dL 6 - 20 mg/dL [facility] Urea nitrogen/Creatinin e [Mass ratio] 14 mg/mg 9 - 20 [facility] Troponinon 12-20-2024 Troponin I.cardiac High sensitivity method [Mass/Vol] ng/L 0 - 14 ng/L [facility] Comment on above: High Sensitivity Tro ponin values cannot be compared with other Troponin methodologies. [facility] Troponin, High Sens <6 Normal 0-14 [facility] Comment on above: Result Comment: High Sensitivity Troponin values cannot be compared with other Troponin methodologies. Performed By: #### C DP, CP, TROPI #### [facility] [address] [place] [address] Warp Doffer: Tray Stapleton MD CBCon 11-03-2024 Erythrocyte distribution width (RBC) [Ratio] 13.9 % 11.8 - 14.4 % [facility] Hematocrit (Bld) [Volume fraction] 40.6 % 36.3 - 47.1 % [facility] Hemoglobin (Bld) [Mass/Vol] 13.1 g/dL 11.9 - 15.1 g/dL [facility] MCH (RBC) [Entitic mass] 30.8 pg 25.2 - 33.5 pg [facility] MCHC (RBC) [Mass/Vol] 32.3 g/dL 28.4 - 34.8 g/dL [facility] MCV (RBC) [Entitic vol] 95.5 fL 82.6 - 102.9 fL [facility] Nucleated RBC/100 WBC (Bld) [Ratio] 0.0 % 0.0 per 100 WBC [facility] Platelet mean volume (Bld) [Entitic vol] 9.6 fL 8.1 - 13.5 fL [facility] Platelets (Bld) [#/Vol] 411 10*3/uL [facility] RBC (Bld) [#/Vol] 4.25 10*6/uL 3.95 - 5.1 1 m/uL [facility] WBC other (Bld) [#/Vol] 8.6 [facility] Erythrocyte distribution width (RBC) [Ratio] 13.9 % Normal 11.8-14.4 [facility] Comment on above: Performed By: #### C P, CBC, HCG #### [facility] [place] [address] Warp Doffer: Tray Stapleton MD #### PHEP, HIVCMB, AHBS, TREP #### [address] [phone] War[employer] Doffer: Nabor Gatica MD Hematocrit (Bld) [Volume fraction] 40.6 % Normal 36.3-47.1 [facility] Comment on above: Performed By: #### C P, CBC, HCG #### [address] [place] [address] Warp Doffer: Tray Stapleton MD #### PHEP, HIVCMB, AHBS, TREP #### [address] [phone] Warp Doffer: Nabor Gatica MD Hemoglobin (Bld) [Mass/Vol] 13.1 g/dL Normal 11.9-15.1 [facility] Comment on above: Performed By: #### C P, CBC, HCG #### [address] [place] [address] Warp Doffer: Tray Stapleton MD #### PHEP, HIVCMB, AHBS, TREP #### [address] [phone] Warp Doffer: Nabor Gatica MD MCH (RBC) [Entitic mass] 30.8 pg Normal 25.2-33.5 [facility] Comment on above: Performed By: #### C P, CBC, HCG #### [address] [place] [address] Warp Doffer: Tray Stapleton MD #### PHEP, HIVCMB, AHBS, TREP #### [phone] [place], [place] [phone] Warp Doffer: Nabor Gatica MD MCHC (RBC) [Mass/Vol] 32.3 g/dL Normal 28.4-34.8 [facility] Comment on above: Performed By: #### C P, CBC, HCG #### [address] [place] [phone] Warp Doffer: Tray Stapleton MD #### PHEP, HIVCMB, AHBS, TREP #### [address] [phone] Warp Doffer: Nabor Gatica MD MCV (RBC) [Entitic vol] 95.5 fL Normal 82.6-102.9 [facility] Comment on above: Performed By: #### C P, CBC, HCG #### [address] [place] [phone] Warp Doffer: Tray Stapleton MD #### PHEP, HIVCMB, AHBS, TREP #### [place] [phone] Warp Doffer: Nabor Gatica MD NRBC Automated 0.0 per 100 WBC Normal 0.0 [facility] Comment on above: Performed By: #### C P, CBC, HCG #### [address] [place] [phone] Warp Doffer: Tray Stapleton MD #### PHEP, HIVCMB, AHBS, TREP #### [address] [phone] Warp Doffer: Nabor Gatica MD Platelet mean volume (Bld) [Entitic vol] 9.6 fL Normal 8.1-13.5 [facility] Comment on above: Performed By: #### C P, CBC, HCG #### [address] [place] [address] Warp Doffer: Tray Stapleton MD #### PHEP, HIVCMB, AHBS, TREP #### [address] [phone] Warp Doffer: Nabor Gatica MD Platelets (Bld) [#/Vol] 411 10*3/uL Normal 138-453 [facility] Comment on above: Performed By: #### C P, CBC, HCG #### [address] [place], [place] [phone] Warp Doffer: Tray Stapleton MD #### PHEP, HIVCMB, AHBS, TREP #### [facility] [address] [place] [address] Warp Doffer: Nabor Gatica MD RBC (Bld) [#/Vol] 4.25 10*6/uL Normal 3.95-5.11 [facility] Comment on above: Performed By: #### C P, CBC, HCG #### [address] [place], [place] [phone] Warp Doffer: Tray Stapleton MD #### PHEP, HIVCMB, AHBS, TREP #### [address] [phone] Warp Doffer: Nabor Gatica MD WBC (Bld) [#/Vol] 8.6 10*3/uL Normal 3.5-11.3 [facility] Comment on above: Performed By: #### C P, CBC, HCG #### [address] [place], [place] [phone] Warp Doffer: Tray Stapleton MD #### PHEP, HIVCMB, AHBS, TREP #### [address] [place] [address] Warp Doffer: Nabor Gatica MD Comp Metabolic Profon 2023 Albumin [Mass/Vol] 4.4 g/dL Normal 3.5-5.2 [facility] Comment on above: Performed By: #### C P, CBC, HCG #### [address] [place] [phone] Warp Doffer: Tray Stapleton MD #### PHEP, HIVCMB, AHBS, TREP #### [address] [place], [place] [phone] Warp Doffer: Nabor Gatica MD Albumin/Glob Ratio 1.5 Normal 1.0-2.5 [facility] Comment on above: Performed By: #### C P, CBC, HCG #### [address] [place] [address] Warp Doffer: Tray Stapleton MD #### PHEP, HIVCMB, AHBS, TREP #### [address] [place], [place] [phone] Warp Doffer: Nabor Gatica MD Alkaline Phos 91 U/L Normal 35-104 [facility] Comment on above: Performed By: #### C P, CBC, HCG #### [address] [place] [address] Warp Doffer: Tray Stapleton MD #### PHEP, HIVCMB, AHBS, TREP #### [address] [phone] Warp Doffer: Nabor Gatica MD ALT [Catalytic activity/Vol] 9 U/L Low 10-35 [facility] Comment on above: Performed By: #### C P, CBC, HCG #### [address] [place] [address] Warp Doffer: Tray Stapleton MD #### PHEP, HIVCMB, AHBS, TREP #### [address] [phone] Warp Doffer: Nabor Gatica MD Anion gap [Moles/Vol] 11 mmol/L Normal 9-16 [facility] Comment on above: Performed By: #### C P, CBC, HCG #### [address] [place], [place] [phone] Warp Doffer: Tray Stapleton MD #### PHEP, HIVCMB, AHBS, TREP #### [address] [phone] Warp Doffer: Nabor Gatica MD AST [Catalytic activity/Vol] 23 U/L Normal 10-35 [facility] Comment on above: Performed By: #### C P, CBC, HCG #### [address] [place], [place] [phone] Warp Doffer: Tray Stapleton MD #### PHEP, HIVCMB, AHBS, TREP #### [address] [phone] Warp Doffer: Nabor Gatica MD Bilirubin [Mass/Vol] 0.4 mg/dL Normal 0.00-1.20 [facility] Comment on above: Performed By: #### C P, CBC, HCG #### [address] [place] [phone] Warp Doffer: Tray Stapleton MD #### PHEP, HIVCMB, AHBS, TREP #### [address] [phone] Warp Doffer: Nabor Gatica MD BUN/CRE Ratio 19 Normal 9-20 [facility] Comment on above: Performed By: #### C P, CBC, HCG #### [address] [place], [place] [phone] Warp Doffer: Tray Stapleton MD #### PHEP, HIVCMB, AHBS, TREP #### [address] [phone] Warp Doffer: Nabor Gatica MD Calcium [Mass/Vol] 9.3 mg/dL Normal 8.6-10.4 [facility] Comment on above: Performed By: #### C P, CBC, HCG #### [facility] [address] [place], [place] 4405583 Warp Doffer: Tray Stapleton MD #### PHEP, HIVCMB, AHBS, TREP #### [address] [phone] Warp Doffer: Nabor Gatica MD Chloride [Moles/Vol] 106 mmol/L Normal 98-107 [facility] Comment on above: Performed By: #### C P, CBC, HCG #### [facility] [address] [place], [place] [phone] Warp Doffer: Tray Stapleton MD #### PHEP, HIVCMB, AHBS, TREP #### [address] [phone] Warp Doffer: Nabor Gatica MD CO2 [Moles/Vol] 25 mmol/L Normal 20-31 [facility] Comment on above: Performed By: #### C P, CBC, HCG #### [facility] [address] [place], [place] [phone] Warp Doffer: Tray Stapleton MD #### PHEP, HIVCMB, AHBS, TREP #### [address] [phone] Warp Doffer: Nabor Gatica MD Creatinine [Mass/Vol] 0.7 mg/dL Normal 0.50-0.90 [facility] Comment on above: Performed By: #### C P, CBC, HCG #### [facility] [address] [place] [address] Warp Doffer: Tray Stapleton MD #### PHEP, HIVCMB, AHBS, TREP #### [address] [phone] Warp Doffer: Nabor Gatica MD GFR/1.73 sq M.predicted among non-blacks MDRD (S/P/Bld) [Vol rate/Area] mL/min/{1.73_m2} Normal >60 [facility] Comment on above: Result Comment: These results [...] C P, CBC, HCG #### [facility] [address] [place] [address] [place] [address] Warp Doffer: Tray Stapleton MD #### PHEP, HIVCMB, AHBS, TREP #### [address] [address] Warp Doffer: Nabor Gatica MD Glucose [Mass/Vol] 79 mg/dL Normal 74-99 [facility] Comment on above: Performed By: #### C P, CBC, HCG #### [address] [place] [address] Warp Doffer: Tray Stapleton MD #### PHEP, HIVCMB, AHBS, TREP #### [address] [address] Warp Doffer: Nabor Gatica MD Potassium [Moles/Vol] 3.9 mmol/L Normal 3.7-5.3 [facility] Comment on above: Performed By: #### C P, CBC, HCG #### [facility] [address] [place] [address] [place] [address] Warp Doffer: Tray Stapleton MD #### PHEP, HIVCMB, AHBS, TREP #### [address] [address] Warp Doffer: Nabor Gatica MD Protein [Mass/Vol] 7.4 g/dL Normal 6.6-8.7 [facility] Comment on above: Performed By: #### C P, CBC, HCG #### [facility] [address] [place] [address] Warp Doffer: Tray Stapleton MD #### PHEP, HIVCMB, AHBS, TREP #### [address] [phone] Warp Doffer: Nabor Gatica MD Sodium [Moles/Vol] 142 mmol/L Normal 136-145 [facility] Comment on above: Performed By: #### C P, CBC, HCG #### [address] [place] [address] Warp Doffer: Tray Stapleton MD #### PHEP, HIVCMB, AHBS, TREP #### [address] [phone] Warp Doffer: Nabor Gatica MD Urea nitrogen [Mass/Vol] 13 mg/dL Normal 6-20 [facility] Comment on above: Performed By: #### C P, CBC, HCG #### [address] [place] [address] Warp Doffer: Tray Stapleton MD #### PHEP, HIVCMB, AHBS, TREP #### [address] [phone] Warp Doffer: Nabor Gatica MD Comprehensive Metabolic Pane [facility] 11-03-2024 Albumin [Mass/Vol] 4.4 g/dL 3.5 - 5.2 g/dL [facility] Albumin/Globulin [Mass ratio] 1.5 {ratio} 1.0 - 2.5 [facility] ALP [Catalytic activity/Vol] 91 U/L 35 - 104 U/L [facility] ALT [Catalytic activity/Vol] 9 U/L Low 10 - 35 U/L [facility] Anion gap [Moles/Vol] 11 mmol/L 9 - 16 mmol/L [facility] AST [Catalytic activity/Vol] 23 U/L 10 - 35 U/L [facility] Bilirubin [Mass/Vol] 0.4 mg/dL 0.00 - 1.20 mg/dL [facility] Calcium [Mass/Vol] 9.3 mg/dL 8.6 - 10. 4 mg/dL [facility] Chloride [Moles/Vol] 106 mmol/L 98 - 107 mmol/L [facility] CO2 [Moles/Vol] 25 mmol/L 20 - 31 mmol/L [facility] Creatinine [Mass/Vol] 0.7 mg/dL 0.50 - 0.90 mg/dL [facility] Est, [place] Brizuelat Rate - PINF [facility] Comment on above: These results are not [...] [Mass/Vol] 79 mg/dL 74 - 99 mg/dL [facility] Interpretation and review of laboratory results Abnormal [facility] Potassium [Moles/Vol] 3.9 mmol/L 3.7 - 5.3 mmol/L [facility] Protein [Mass/Vol] 7.4 g/dL 6.6 - 8.7 g/dL [facility] Sodium [Moles/Vol] 142 mmol/L 136 - 145 mmol/L [facility] Urea nitrogen [Mass/Vol] 13 mg/dL 6 - 20 mg/dL [facility] Urea nitrogen/Creatinin e [Mass ratio] 19 mg/mg 9 - 20 [facility] HCG Qualitative, Serumon HCG ( test) Ql Negative NEGATIVE [facility] Comment on above: Specimens with hCG l evels near the threshold of the test (25 mIU/mL) may give a negative or indeterminate result. In such cases, another test should be performed with a new specimen in 48-72 hours. If early is suspected clinically in this setting, correlation with quantitative serum b-hCG level is suggested. [facility] has confirmed the use of plasma for this test. This has not been cleared or approved by the U.S. Food and Drug Administration. The FDA has determined that such clearance is not necessary. [facility] HCG Screen, Bloodon 11-03-20 HCG Screen, Blood Negative Normal NEG [facility] Comment on above: Result Comment: Spec imens with hCG levels near the threshold of the test (25 mIU/mL) may give a negative or indeterminate result. In such cases, another test should be performed with a new specimen in 48-72 hours. If early is suspected clinically in this setting, correlation with quantitative serum b-hCG level is suggested. [facility] has confirmed the use of plasma for this test. This has not been cleared or approved by the U.S. Food and Drug Administration. The FDA has determined that such clearance is not necessary. Performed By: #### C P, CBC, HCG #### [facility] [address] [place] [address] Warp Doffer: Tray Stapleton MD #### PHEP, HIVCMB, AHBS, TREP #### [address] [address] Warp Doffer: Nabor Gatica MD HIV Ag/Abon 11-03-2024 HIV Ag/Ab Non-Reactive Normal NR [facility] Comment on above: Result Comment: No l aboratory evidence of HIV infection. If acute HIV infection is suspected, consider testing for HIV-1 RNA. Performed By: #### B MP, TROPI, CDP #### [facility] [address] [place] [address] Warp Doffer: Tray Stapleton MD HIV Screenon 11-03-2024 HIV 1+2 Ab+HIV1 p24 Ag IA Ql Non-Reactive NONREACTIVE [facility] Comment on above: No laboratory eviden ce of HIV infection. If acute HIV infection is suspected, consider testing for HIV-1 RNA. [facility] Hep B Surf Abon 11-03-2024 Hep B Surf Ab <3.50 Normal <10 [facility] Comment on above: Result Comment: REFERENCE RANGE: <10.0 NON-REACTIVE/NOT IMMUNE >=10.0 REACTIVE/IMMUNE Performed By: #### B VAL TROPI, CDP #### [facility] [address] [place] [address] [place]. [place], [place] [phone] Warp Doffer: Tray Stapleton MD Hepatitis Acute [facility] 11-03 Hep A Ab,IgM Non-Reactive Normal [facility] Comment on above: Performed By: #### B DEVYN NEAL, CDP #### [address] [place], [place] [phone] Warp Doffer: Tray Stapleton MD Hep B Core Ab,IgM Non-Reactive Normal [facility] Comment on above: Performed By: #### B DEVYN NEAL, CDP #### [facility] [address] [place] [address] [place] [address] Warp Doffer: Tray Stapleton MD Hep B Surf Ag Non-Reactive Normal [facility] Comment on above: Performed By: #### B DEVYN NEAL, CDP #### [address] [place], [place] [phone] Warp Doffer: Tray Stapleton MD Hep C Ab Non-Reactive Normal [facility] Comment on above: Result Comment: The hepatitis [...] By: #### B VAL TROPI, CDP #### [facility] [address] [place] [address] [place]. [place], [place] [phone] Warp Doffer: Tray Stapleton MD Hepatitis B Surface Antibody on 11-03-2024 HBV surface Ab IA Qn m[IU]/mL NINF [facility] Comment on above: REFERENCE RANGE: <10.0 NON-REACTIVE/NOT IMMUNE >=10.0 REACTIVE/IMMUNE Hepatitis Panel, Acuteon HAV IgM IA Ql Non-Reactive NONREACTIVE [facility] HBV core IgM IA Ql Non-Reactive NONREACTIVE [facility] HBV surface Ag IA Ql Non-Reactive NONREACTIVE [facility] HCV Ab IA Ql Non-Reactive NONREACTIVE [facility] Comment on above: The hepatitis C procedure [...] RNA by PCR. No Panel Informationon 11-03 [facility] T. pallidum Abon 11-03-2024 T. pallidum Ab IA Ql (S) Non-Reactive NONREACTIVE [facility] Comment on above: T. pallidum antibodies are not detected. There is no serological evidence of infection with T. pallidum (early primary syphilis cannot be excluded). Retest in 2-4 weeks if syphilis is clinically suspect. [facility] T.pallidum Ab Screenon 11-03 T.pallidum Ab Screen Non-Reactive Normal NR [facility] Comment on above: Result Comment: T. pallidum antibodies are not detected. There is no serological evidence of infection with T. pallidum (early primary syphilis cannot be excluded). Retest in 2-4 weeks if syphilis is clinically suspect. Performed By: #### B MP, TROPI, CDP #### [facility] [address] [place] [address] Warp Doffer: Tray Stapleton MD Flu A/B Ag Detectionon 10-17 Flu A Ag Detection Positive Abnormal NEG [facility] Comment on above: Result Comment: for Influenza A Antigen Performed By: #### F SUSANNAH #### [facility] [address] [place] [address] Warp Doffer: Tray Stapleton MD Flu B Ag Detection Negative Normal NEG [facility] Comment on above: Result Comment: for Influenza B Antigen. Performed By: #### F SUSANNAH #### [facility] [address] [place] [address] Warp Doffer: Tray Stapleton MD Rapid influenza A/B antigens on 10-17-2024 FLUAV Ag Ql (Unsp spec) Positive Abnormal NEGATIVE [facility] Comment on above: for Influenza A Anti gen FLUBV Ag Ql (Unsp spec) Negative NEGATIVE [facility] Comment on above: for Influenza B Anti gen. Interpretation and review of laboratory results Abnormal [facility] XR KNEE LEFT (1-2 VIEWS)on 1 11-18-2023 [...] Julius Torres MD 09/18/[address] [facility], [place] XR Knee - left 1 or 2 Viewso n 09-18-2024 No acute abnormality of the knee. [facility] RAD[facility]OLOGY EXAMINATION: TWO XRAY VIEWS OF THE LEFT KNEE 09/18/2024 1:51 pm COMPARISON: None. HISTORY: ORDERING SYSTEM PROVIDED HISTORY: pain TECHNOLOGIST PROVIDED HISTORY: Reason for exam:->pain Is the patient ?->No What reading provider will be dictating this exam?->CRC FINDINGS: No evidence of acute fracture or dislocation. No focal osseous lesion. No evidence of joint effusion. No focal soft tissue abnormality. [facility] RADIOLOGY Julius Torres MD - 09/18/2024 EXAMINATION: [...] IMPRESSION: No acute abnormality of the knee. [facility] Study observation (narrative) [employer] XR Knee - left 1 or 2 ViewsO rdered By: Julius Torres on 09-18-2024 [employer] Work Phone: Bacteria identifiedon 2023 Bacteria identified Cx Nom (U) Test: Urine Culture Specimen Source: Clean Catch/Voided Specimen Type: Urine Specimen Date: 07/22/2024126 Result Date: 07/23/2024 0833 Result Status: Final result Abnormal: No Resulting Lab: [facility] [id number] [place] [address] CULTURE No significant growth Normal [facility] Comment on above: Performed By: #### 5 902-2 #### AMTEUS CHENG ([id number]) [facility] ([facility]) [address] [place] [address] Blood Gas Lactic Acid, Karon anderson 07-22-2024 Lactate (BldV) [Moles/Vol] 1.5 mmol/L 0.4 - 2.0 mmol/L [facility] CBC W Auto Differential pane l (Bld)on 07-22-2024 Basophils (Bld) [#/Vol] 0.04 10*3/uL [facility] Basophils/100 WBC (Bld) 0.4 % 0.0 - 2.0 % [facility] Eosinophils (Bld) [#/Vol] 0.11 10*3/uL [facility] Eosinophils/100 WBC (Bld) 1.1 % 0.0 - 6.0 % [facility] Erythrocyte distribution width (RBC) [Ratio] 15.8 % High 11.5 - 14.5 % [facility] Hematocrit (Bld) [Volume fraction] 38.2 % 36.0 - 46.0 % [facility] Hemoglobin (Bld) [Mass/Vol] 12.4 g/dL 12.0 - 16.0 g/dL [facility] Immature granulocytes (Bld) [#/Vol] 0.03 10*3/uL [facility] Immature granulocytes/100 WBC (Bld) 0.3 % 0.0 - 0.9 % [facility] Comment on above: Immature Granulocyte Count (IG) includes promyelocytes, myelocytes and metamyelocytes but does not include bands. Percent differential counts (%) should be interpreted in the context of the absolute cell counts (cells/UL). Interpretation and review of laboratory results Abnormal [facility] Lymphocytes (Bld) [#/Vol] 2.25 10*3/uL [facility] Lymphocytes/100 WBC (Bld) 22.6 % 13.0 - 44.0 % [facility] MCH (RBC) [Entitic mass] 29.5 pg 26.0 - 34.0 pg [facility] MCHC (RBC) [Mass/Vol] 32.5 g/dL 32.0 - 36.0 g/dL [facility] MCV (RBC) [Entitic vol] 91 fL 80 - 100 fL [facility] Monocytes (Bld) [#/Vol] 0.75 10*3/uL [facility] Monocytes/100 WBC (Bld) 7.5 % 2.0 - 10.0 % [facility] Neutrophils (Bld) [#/Vol] 6.76 10*3/uL [facility] Comment on above: Percent differential counts (%) should be interpreted in the context of the absolute cell counts (cells/uL). Neutrophils/100 WBC (Bld) 68.1 % 40.0 - 80.0 % [facility] Nucleated RBC/100 WBC (Bld) [Ratio] 0.0 % [facility] Platelets (Bld) [#/Vol] 388 10*3/uL [facility] RBC (Bld) [#/Vol] 4.21 10*6/uL [facility] WBC (Bld) [#/Vol] 9.9 10*3/uL [facility] Basophils (Bld) [#/Vol] 0.04 x10*3/uL Normal 0.00-0.10 [facility] Comment on above: Performed By: #### 5 7021-8 #### MATEUS CHENG ([id number]) [facility] ([facility]) [address] [place] [phone] Basophils/100 WBC (Bld) 0.4 % Normal 0.0-2.0 [facility] Comment on above: Performed By: #### 5 7021-8 #### MATEUS CHENG ([id number]) [facility]) [address] [place] [address] Eosinophils (Bld) [#/Vol] 0.11 x10*3/uL Normal 0.00-0.70 [facility] Comment on above: Performed By: #### 5 7021-8 #### MATEUS CHENG ([id number]) [facility]) [address] [place] [address] Eosinophils/100 WBC (Bld) 1.1 % Normal 0.0-6.0 [facility] Comment on above: Performed By: #### 5 7021-8 #### MATESU CHENG ([id number]) [facility] ([facility]) [address] [place] [address] Erythrocyte distribution width (RBC) [Ratio] 15.8 % High 11.5-14.5 [facility] Comment on above: Performed By: #### 5 7021-8 #### MATEUS CHENG ([id number]) [facility]) [address] [place] [address] 59447 Hematocrit (Bld) [Volume fraction] 38.2 % Normal 36.0-46.0 [facility] Comment on above: Performed By: #### 5 7021-8 #### MATEUS CHENG ([id number]) [facility] ([facility]) [address] [place] [address] 38316 Hemoglobin (Bld) [Mass/Vol] 12.4 g/dL Normal 12.0-16.0 [facility] Comment on above: Performed By: #### 5 7021-8 #### MATEUS CHENG ([id number]) [facility] ([facility]) [address] [place] [address] 43687 Immature granulocytes (Bld) [#/Vol] 0.03 x10*3/uL Normal 0.00-0.70 [facility] Comment on above: Performed By: #### 5 7021-8 #### MATEUS CHENG ([id number]) [facility] (EM) [address] [place] [address] 36366 Immature granulocytes/100 WBC (Bld) 0.3 % Normal 0.0-0.9 [facility] Comment on above: Result Comment: Joanie ture Granulocyte Count (IG) includes promyelocytes, myelocytes and metamyelocytes but does not include bands. Percent differential counts (%) should be interpreted in the context of the absolute cell counts (cells/UL). Performed By: #### 5 7021-8 #### MATEUS CHENG ([id number]) [facility] ([facility]) [address] [place] [address] 87577 Lymphocytes (Bld) [#/Vol] 2.25 x10*3/uL Normal 1.20-4.80 [facility] Comment on above: Performed By: #### 5 7021-8 #### MATEUS CHENG ([id number]) [facility] ([facility]) [address] [place] [address] 54112 Lymphocytes/100 WBC (Bld) 22.6 % Normal 13.0-44.0 [facility] Comment on above: Performed By: #### 5 7021-8 #### MATEUS CHENG ([id number]) [facility] ([facility]) [address] [place] [address] 53572 MCH (RBC) [Entitic mass] 29.5 pg Normal 26.0-34.0 [facility] Comment on above: Performed By: #### 5 7021-8 #### MATEUS CHENG ([id number]) [facility] ([facility]) [address] [place] [address] 71000 MCHC (RBC) [Mass/Vol] 32.5 g/dL Normal 32.0-36.0 [facility] Comment on above: Performed By: #### 5 7021-8 #### MATESU CHENG ([id number]) [facility] ([facility]) [address] [place] [address] 43644 MCV (RBC) [Entitic vol] 91 fL Normal 80-100 [facility] Comment on above: Performed By: #### 5 7021-8 #### MATEUS CHENG ([id number]) [facility] ([facility]) [address] [place] [address] 34922 Monocytes (Bld) [#/Vol] 0.75 x10*3/uL Normal 0.10-1.00 [facility] Comment on above: Performed By: #### 5 7021-8 #### MATEUS CHENG ([id number]) [facility] ([facility]) [address] [place] [address] 58989 Monocytes/100 WBC (Bld) 7.5 % Normal 2.0-10.0 [facility] Comment on above: Performed By: #### 5 7021-8 #### MATEUS CHENG ([id number]) [facility] ([facility]) [address] [place] [address] 23150 Neutrophils (Bld) [#/Vol] 6.76 x10*3/uL Normal 1.20-7.70 [facility] Comment on above: Result Comment: Perc ent differential counts (%) should be interpreted in the context of the absolute cell counts (cells/uL). Performed By: #### 5 7021-8 #### MATEUS CHENG ([id number]) [facility] ([facility]) [address] [place] [address] 13080 Neutrophils/100 WBC (Bld) 68.1 % Normal 40.0-80.0 [facility] Comment on above: Performed By: #### 5 7021-8 #### MATEUS CHENG ([id number]) [facility] ([facility]) [address] [place] [address] 17235 Nucleated RBC/100 WBC (Bld) [Ratio] 0.0 /100 WBCs Normal 0.0-0.0 [facility] Comment on above: Performed By: #### 5 7021-8 #### MATEUS CHENG ([id number]) [facility] ([facility]) [address] [place] [address] 51659 Platelets (Bld) [#/Vol] 388 x10*3/uL Normal 150-450 [facility] Comment on above: Performed By: #### 5 7021-8 #### MATEUS CHENG ([id number]) [facility] ([facility]) [address] [place] [address] 86847 RBC (Bld) [#/Vol] 4.21 x10*6/uL Normal 4.00-5.20 [facility] Comment on above: Performed By: #### 5 7021-8 #### MATEUS CHENG ([id number]) [facility] ([facility]) [address] [place] [address] 73292 WBC (Bld) [#/Vol] 9.9 x10*3/uL Normal 4.4-11.[address] [facility] Comment on above: Performed By: #### 5 7021-8 #### MATEUS CHENG ([id number]) [facility] ([facility]) [address] [place] [address] ANGIO CHEST ABDOMEN PELVI Son 07-22-2024 CT ANGIO CHEST ABDOMEN PELVIS Interpreted By: Alberto Cha, STUDY: CT ANGIO CHEST ABDOMEN PELVIS; 07/22/2024 1:54 am INDICATION: Signs/Symptoms:Chest pain radiating toback and headache with HTN r/o dissection. COMPARISON: None. ACCESSION NUMBER(S): [id number] ORDERING CLINICIAN: WILMAR COKER TECHNIQUE: Axial non-contrast [...] Alberto Cha 07/22/2024 2:22 AM Dictation workstation: [id number] [facility] CTA Chest and abdominal vess els [...] Alberto Cha 07/22/2024 2:22 AM Dictation workstation: [id number] Interpreted By: Alberto Cha, STUDY: CT ANGIO CHEST ABDOMEN PELVIS; 07/22/2024 1:54 am INDICATION: Signs/Symptoms:Chest pain radiating toback and headache with HTN r/o dissection. COMPARISON: None. ACCESSION NUMBER(S): [id number] ORDERING CLINICIAN: WILMAR COKER TECHNIQUE: Axial non-contrast [...] HTN r/o dissection. COMPARISON: None. ACCESSION NUMBER(S): [id number] ORDERING CLINICIAN: WILMAR COKER TECHNIQUE: Axial non-contrast [...] Alberto Cha 07/22/2024 2:22 AM Dictation workstation: [id number] [facility] Work Phone: Radiology Study observation (narrative) [facility] Work Phone: CTA Chest and abdominal vess els W contrast IVOrdered By: Alberto Cha on 07-22-2024 [facility] Work Phone: Coagulation surface inducedo n 07-22-2024 aPTT Coag (PPP) [Time] 36 s Normal 27-38 [facility] Comment on above: Order Comment: The A PTT is no longer used for monitoring Unfractionated Heparin Therapy. For monitoring Heparin Therapy, use the Heparin Assay. Performed By: #### 1 4979-9 #### MATEUS CHENG ([id number]) [facility] ([facility]) [address] [place] [address] Coagulation tissue factor in ducedon 07-22-2024 PT Coag (PPP) [Time] 11.5 s Normal 9.8-12.8 [facility] Comment on above: Performed By: #### 5 902-2 #### MATEUS CHENG ([id number]) [facility] ([facility]) [address] [place] [address] Comprehensive metabolic 2000 panelon 07-22-2024 Albumin BCP dye [Mass/Vol] 4.5 g/dL 3.4 - 5.0 g/dL [facility] ALP [Catalytic activity/Vol] 62 U/L 33 - 110 U/L [facility] ALT With P-5'-P [Catalytic activity/Vol] 8 U/L 7 - 45 U/L [facility] Comment on above: Patients treated wit h Sulfasalazine may generate falsely decreased results for ALT. Anion gap [Moles/Vol] 12 mmol/L 10 - 20 mmol/L [facility] AST With P-5'-P [Catalytic activity/Vol] 17 U/L 9 - 39 U/L [facility] Bilirubin [Mass/Vol] 0.3 mg/dL 0.0 - 1.2 mg/dL [facility] Calcium [Mass/Vol] 9.4 mg/dL 8.6 - 10. 3 mg/dL [facility] Chloride [Moles/Vol] 107 mmol/L 98 - 107 mmol/L [facility] CO2 [Moles/Vol] 24 mmol/L 21 - 32 mmol/L [facility] Creatinine [Mass/Vol] 0.65 mg/dL 0.50 - 1.05 mg/dL [facility] eGFR - PINF [facility] Comment on above: Calculations of leticia mated GFR are performed using the 2020 CKD-EPI Study Refit equation without the race variable for the IDMS-Traceable creatinine methods. https://jasn.asnjournals.org/content//ASN.182544081 8 Glucose [Mass/Vol] 98 mg/dL 74 - 99 mg/dL [facility] Potassium [Moles/Vol] 3.9 mmol/L 3.5 - 5.3 mmol/L [facility] Protein [Mass/Vol] 7.8 g/dL 6.4 - 8.2 g/dL [facility] Sodium [Moles/Vol] 139 mmol/L 136 - 145 mmol/L [facility] Urea nitrogen [Mass/Vol] 12 mg/dL 6 - 23 mg/dL [facility] Albumin BCP dye [Mass/Vol] 4.5 g/dL Normal 3.4-5.0 [facility] Comment on above: Performed By: #### 2 4323-8 #### MATEUS CHENG ([id number]) [facility] ([facility]) [address] [place] [address] ALP [Catalytic activity/Vol] 62 U/L Normal 33-110 [facility] Comment on above: Performed By: #### 2 4323-8 #### MATEUS CHENG ([id number]) [facility] ([facility]) [address] [place] [address] 29866 ALT With P-5'-P [Catalytic activity/Vol] 8 U/L Normal 7-45 [facility] Comment on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 appetite [...] PM Vitals Vital Signs Recorded: 02Aug2022 06:17PM Uunddtecmzk53 Cbgpjdsa502 Vsflsofjl863 Height5 ft 9 in Physical Exam Physical [...] tenderness present (more content not included)... Normal [facility] Office Visit (Family Bertrand khan)on 06-13-2022 Follow-up [...] DIRECTED Vitals Vital Signs Recorded: 13Jun2022 07:46PM Btnxrpkciaw80 Dznkcvgu962 Knwurvftv81 Height5 ft 9 in Owelli349 lb BMI Sikubmbqrs91.37 kg/m2 BSA Calculated1.9 Physical Exam General: ambulatory, [...] % Fe Saturation 24 % Normal 20-55 [facility] Iron [Mass/Vol] 74 ug/dL Normal 37-145 [facility] Total Fe Binding Cap 313 ug/dL Normal 250-450 [facility] [place] Unbound Fe Bind Cap 239 ug/dL Normal 112-347 [facility] [place] Comment on above: Result Comment: [employer] [address] [place], [place] [address] ([phone] CBC with Auto Differentialon 06-07-2022 Basophils (Bld) [#/Vol] 0.1 10*3/uL 0 - 0.2 K/uL [facility] Basophils/100 WBC (Bld) 0.8 % [facility] Eosinophils (Bld) [#/Vol] 0.3 10*3/uL 0 - 0.7 K/uL [facility] Eosinophils/100 WBC (Bld) 4.1 % [facility] Hematocrit (Bld) [Volume fraction] 35.8 % Low 37 - 47 % [facility] Hemoglobin (Bld) [Mass/Vol] 11.8 g/dL Low 12 - 16 g/dL [facility] Lymphocytes (Bld) [#/Vol] 2.2 10*3/uL 1 - 4.8 K/uL [facility] Lymphocytes/100 WBC (Bld) 30.6 % [facility] MCH (RBC) [Entitic mass] 30.4 pg 27 - 31.3 pg [facility] MCHC (RBC) [Mass/Vol] 33.0 % 33 - 37 % [facility] MCV (RBC) [Entitic vol] 92.0 fL 82 - 100 fL [facility] Monocytes (Bld) [#/Vol] 0.6 10*3/uL 0.2 - 0.8 K/uL [facility] Monocytes/100 WBC (Bld) 8.3 % [facility] Neutrophils Absolute 4.1 K/uL 1.4 - 6.5 K/uL [facility] Neutrophils/100 WBC (Bld) 56.2 % [facility] Platelet distribution width (Bld) [Ratio] 15.3 % High 11.5 - 14.5 % [facility] Platelets (Bld) [#/Vol] 401 10*3/uL High 130 - 400 K/uL [facility] RBC (Bld) [#/Vol] 3.89 10*6/uL Low [facility] WBC (Bld) [#/Vol] 7.3 10*3/uL 4.8 - 10.8 K/uL [facility] Comprehensive Metabolic Pane madyson 06-07-2022 Albumin [Mass/Vol] 4.5 g/dL 3.5 - 4.6 g/dL [facility] ALP (Bld) [Catalytic activity/Vol] 62 U/L 40 - 130 U/L [facility] ALT [Catalytic activity/Vol] 9 U/L 0 - 33 U/L [facility] Anion gap [Moles/Vol] 8 mmol/L Low [facility] AST [Catalytic activity/Vol] 17 U/L 0 - 35 U/L [facility] Bilirubin [Mass/Vol] mg/dL 0.2 - 0.7 mg/dL [facility] Calcium [Mass/Vol] 9.2 mg/dL 8.5 - 9.9 mg/dL [facility] Chloride [Moles/Vol] 105 mmol/L [facility] CO2 [Moles/Vol] 27 mmol/L [facility] Creatinine [Mass/Vol] 0.71 mg/dL 0.5 - 0.9 mg/dL [facility] Free PSA/Total PSA [Mass fraction] 7.3 g/dL 6.3 - 8 g/dL [facility] GFR >60.0 60 - PINF [facility] Comment on above: >60 mL/min/1.73m2 EG FR, calc. for ages 18 and older using the MDRD formula (not corrected for weight), is valid for stable renal function. GFR Non- >60.0 60 - PINF [facility] Comment on above: >60 mL/min/1.73m2 EG FR, calc. for ages 18 and older using the MDRD formula (not corrected for weight), is valid for stable renal function. Globulin (S) [Mass/Vol] 2.8 g/dL 2.3 - 3.5 g/dL [facility] Glucose [Mass/Vol] 104 mg/dL High 70 - 99 mg/dL [facility] Potassium [Moles/Vol] 4.2 mmol/L [facility] Sodium [Moles/Vol] 140 mmol/L [facility] Urea nitrogen (BldV) [Mass/Vol] 17 mg/dL 6 - 20 mg/dL [facility] No Panel Informationon 06-07 Interpretation and review of laboratory results Abnormal [facility] Colonoscopy studyon 03-31-20 No dictation [facility] Work Phone: Colonoscopy studyOrdered By: User [facility] on 03-31-2022 [facility] Work Phone: POC UR-QUALon 03-06 Beta HCG ( test) Ql (U) Negative Negative [facility] Work Phone: Lot Number [id number] [employer] Phone: Negative QC Pass/Fail Pass [facility] Work Phone: Positive QC Pass/Fail Pass [facility] Work Phone: [facility] Work Phone: MRI CERVICAL SPINE WO CONTRA [...] 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 [facility] MRI of the cervical spine HISTORY: [...] narrowing. Suspect minimal anterior T2-3 endplate spurring. 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 [employer] Phone: MRI CERVICAL SPINE WO CONTRA STOrdered By: Diamond Mckenna on 03-17-2022 [employer] Phone: MRI CERVICAL SPINE WO CONTRA STolondon 03-16-2022 Radiology Study observation (narrative) [employer] Phone: CT Urogramon 02-13-2022 Stable bilateral nonobstructing calculi similar to the prior CT. No hydronephrosis. Limited visualization of the distal ureters, otherwise no suspicious filling defects within the collecting system. [facility] EXAMINATION: CT ABDO MEN AND PELVIS [...] No acute osseous findings. Lower thorax: Unremarkable. [facility] Fahad Akbar M D - 02/13/2022 [...] suspicious filling defects within the collecting system. [employer] Phone: Radiology Study observation (narrative) [facility] Phone: CT UrogramOrdered By: Jesika Akbar on 02-13-2022 [employer] Phone: XR ABDOMEN (KUB) (SINGLE AP VIEW)on 02-03-2022 Impression: Negative abdomen. [facility] Patient 1 : 1985 Age: 36 [...] amount of stool in the transverse colon. [facility] Renee Li MD - 02/03/2022 Patient [...] the transverse colon. IMPRESSION: Impression: Negative abdomen. [employer] Phone: Radiology Study observation (narrative) [employer] Phone: XR ABDOMEN (KUB) (SINGLE AP VIEW)Ordered By: Renee Li on 02-03-2022 [employer] Phone: CBC With Platelet No Differe ntialon 12-31-2021 Erythrocyte distribution width (RBC) [Ratio] 14.1 % Normal 11.5-14.5 [facility] [place]) Comment on above: Performed By: #### C BCND #### [facility] [place]) [address] [place] [address] Hematocrit (Bld) [Volume fraction] 39.1 % Normal 37.0-47.0 [facility] [place] Comment on above: Performed By: #### C BCND #### [facility] [place]) [address] [place] [address] Hemoglobin (Bld) [Mass/Vol] 13.1 g/dL Normal 12.0-16.0 [facility] [place] Comment on above: Performed By: #### C BCND #### [facility] [place]) [address] [place] [address] MCH (RBC) [Entitic mass] 31.6 pg Critically high 27.0-31.3 [facility] [place] Comment on above: Performed By: #### C BCND #### [facility] [place]) [address] [place] [address] MCHC 33.5 % Normal 33.0-37.0 [facility] [place] Comment on above: Performed By: #### C BCND #### [facility] [place]) [address] [place] [address] MCV (RBC) [Entitic vol] 94.5 fL Normal 82.0-100.0 [facility] [place] Comment on above: Performed By: #### C BCND #### [facility] [place]) [address] [place] [address] Platelets (Bld) [#/Vol] 527 10*3/uL Critically high 130-400 [facility] [place] Comment on above: Performed By: #### C BCND #### [facility], [place]) [address] [place] [address] RBC (Bld) [#/Vol] 4.14 10*6/uL Low 4.20-5.40 [facility] [place] Comment on above: Performed By: #### C BCND #### [facility] [place]) [address] [place] [address] WBC (Bld) [#/Vol] 7.2 10*3/uL Normal 4.8-10.8 [facility] [place] Comment on above: Performed By: #### C BCND #### [facility], [place]) [address] [place] [address] Lipid Panelon 12-31-2021 Cholesterol [Mass/Vol] 213 mg/dL Critically high 0-199 [facility] [place] Comment on above: Result Comment: ATP III Cholesterol Classification is Borderline High. Performed By: #### L IPID #### [facility], [place]) [address] [facility] [address] Cholesterol in HDL [Mass/Vol] 56 mg/dL Normal 40-59 [facility] [place] Comment on above: Result Comment: ATP III [...] CHD Performed By: #### L IPID #### [facility], [place]) [address] [facility] [address] Cholesterol in LDL [Mass/Vol] 143 mg/dL Critically high 0-129 [facility] [place] Comment on above: Result Comment: ATT III Classification is Borderline High. Performed By: #### L IPID #### [facility], [place]) [address] [place] [address] Triglyceride [Mass/Vol] 69 mg/dL Normal 0-150 [facility] [place] Comment on above: Result Comment: ATP III Triglycerides Classification is Normal. Performed By: #### L IPID #### [facility], [place]) [address] [place] [address] CBC Auto Differentialon Basophils (Bld) [#/Vol] 0.1 10*3/uL 0.0 - 0.2 K/uL [facility] [employer] Basophils/100 WBC (Bld) 0.3 % [facility] Eosinophils (Bld) [#/Vol] 0.1 10*3/uL 0.0 - 0.7 K/uL [facility] [employer] Eosinophils/100 WBC (Bld) 0.3 % [facility] Hematocrit (Bld) [Volume fraction] 36.1 % Low 37.0 - 47.0 % [facility] Hemoglobin.gastroi ntestinal spec 1 Ql (Stl) 12.1 g/dL 12.0 - 16.0 g/dL [facility] Interpretation and review of laboratory results Abnormal [facility] Lymphocytes (Bld) [#/Vol] 1.7 10*3/uL 1.0 - 4.8 K/uL [facility] Lymphocytes/100 WBC (Bld) 8.2 % [facility] MCH (RBC) [Entitic mass] 30.4 pg 27.0 - 31.3 pg [facility] MCHC (RBC) [Mass/Vol] 33.4 % 33.0 - 37.0 % [facility] MCV (RBC) [Entitic vol] 90.9 fL 82.0 - 100.0 fL [facility] Monocytes (Bld) [#/Vol] 1.4 10*3/uL High 0.2 - 0.8 K/uL [facility] Monocytes/100 WBC (Bld) 6.9 % [facility] Neutrophils Absolute 17.4 K/uL High 1.4 - 6.5 K/uL [facility] Neutrophils/100 WBC (Bld) 84.3 % [facility] Platelet distribution width (Bld) [Ratio] 16.8 % High 11.5 - 14.5 % [facility] Platelets (Bld) [#/Vol] 470 10*3/uL High 130 - 400 K/uL [facility] RBC (Bld) [#/Vol] 3.98 10*6/uL Low [facility] WBC (Bld) [#/Vol] 20.6 10*3/uL High 4.8 - 10.8 K/uL [facility] Comprehensive Metabolic Pane madyson 11-11-2021 Albumin [Mass/Vol] 4.7 g/dL High 3.5 - 4.6 g/dL [facility] ALP (Bld) [Catalytic activity/Vol] 93 U/L 40 - 130 U/L [facility] ALT [Catalytic activity/Vol] U/L 0 - 33 U/L [facility] Anion gap [Moles/Vol] 11 mmol/L [facility] AST [Catalytic activity/Vol] 12 U/L 0 - 35 U/L [facility] Bilirubin [Mass/Vol] 0.6 mg/dL 0.2 - 0.7 mg/dL [facility] Calcium [Mass/Vol] 9.3 mg/dL 8.5 - 9.9 mg/dL [facility] Chloride [Moles/Vol] 100 mmol/L [facility] CO2 [Moles/Vol] 26 mmol/L [facility] Creat[facility] [Mass/Vol] 0.67 mg/dL 0.50 - 0.90 mg/dL [facility] Free PSA/Total PSA [Mass fraction] 8.1 g/dL High 6.3 - 8.0 g/dL [facility] GFR >60.0 >60 [facility] Comment on above: >60 mL/min/1.73m2 EG FR, calc. for ages 18 and older using the MDRD formula (not corrected for weight), is valid for stable renal function. GFR Non- >60.0 >60 [facility] Comment on above: >60 mL/min/1.73m2 EG FR, calc. for ages 18 and older using the MDRD formula (not corrected for weight), is valid for stable renal function. Globulin (S) [Mass/Vol] 3.4 g/dL 2.3 - 3.5 g/dL [facility] Glucose [Mass/Vol] 106 mg/dL High 70 - 99 mg/dL [facility] Interpretation and review of laboratory results Abnormal [facility] Potassium [Moles/Vol] 3.7 mmol/L [facility] Sodium [Moles/Vol] 137 mmol/L [facility] Urea nitrogen (BldV) [Mass/Vol] 9 mg/dL 6 - 20 mg/dL [facility] ED NOTEon 11-11-2021 ED NOTE HNO ID: [id number] Author: Jessee Concepcion RN Service: ? Author Type: Registered Nurse Type: ED Notes Filed: 11/11/2021 3:46 PM Note Text: Pt to ED for right middle finger redness, pt states no known injury, woke up with pain in hand and finger and has progressively worsened. Pt afebrile denies chills. Normal [facility] Lactic Acid, Plasmaon 2021 Lactate [Moles/Vol] 0.7 mmol/L 0.5 - 2.2 mmol/L [facility] XR HAND 3V PA/LAT/OBL RTon 0 11-11-2021 [...] Soft tissue swelling of the third digit Home Health Aide: SUNDEEP Transcribe Date/Time: Nov 11 2021 4:14P Dictated by : DAWN BRITO MD This examination was interpreted and the report reviewed and electronically signed by: DAWN BRITO MD on Nov 11 2021 4:14PM EST [id number] Normal [facility] Vital Signs Date Time Vital Sign Value Performing Clinician Facility 03-04-2025 18:33-0400 Body height 175.26 cm [facility] 03-04-2025 18:33-0400 Body mass index (BMI) [Ratio] 21.1 kg/m2 [facility] 03-04-2025 18:33-0400 Body temperature 98.5 [degF] [facility] 03-04-2025 18:33-0400 Body weight 64.86 kg [facility] 03-04-2025 18:33-0400 Diastolic blood pressure 87 mm[Hg] [facility] 03-04-2025 18:33-0400 Heart rate 103 /min [facility] 03-04-2025 18:33-0400 Respiratory rate 18 /min [facility] 03-04-2025 18:33-0400 SaO2% (BldA) [Mass fraction] 98 % [facility] 03-04-2025 18:33-0400 Systolic blood pressure 127 mm[Hg] [facility] 01-13-2025 18:12-0400 Body height 175.3 cm Denilson Cervantes MD Work Phone: [facility] [employer] 01-13-2025 18:12-0400 Body mass index (BMI) [Ratio] 20.67 kg/m2 Denilson Cervantes MD Work Phone: [facility] [employer] 01-13-2025 18:12-0400 Body weight 63.5 kg Denilson Cervantes MD Work Phone: [facility] [employer] 01-13-2025 18:12-0400 Diastolic blood pressure 95 mm[Hg] Denilson Cervantes MD Work Phone: [facility] [employer] 01-13-2025 18:12-0400 Heart rate 106 /min Denilson Cervantes MD Work Phone: [facility] [employer] 01-13-2025 18:12-0400 Respiratory rate 16 /min Denilson Cervantes MD Work Phone: [facility] [employer] 01-13-2025 18:12-0400 SaO2% (BldA) [Mass fraction] 96 % Denilson Cervantes MD Work Phone: [facility] [employer] 01-13-2025 18:12-0400 Systolic blood pressure 135 mm[Hg] Denilson Cervantes MD Work Phone: [facility] [employer] 01-13-2025 18:00-0400 Body temperature 98.29 [degF] Denilson Cervantes MD Work Phone: [facility] [employer] 12-20-2024 17:03-0500 Diastolic blood pressure 84 mm[Hg] Vandana Jauregui MD Work Phone: [employer] 12-20-2024 17:03-0500 Heart rate 106 /min Vandana Jauregui MD Work Phone: [facility] [employer] 12-20-2024 17:03-0500 Respiratory rate 11 /min Vandana Jauregui MD Work Phone: [employer] 12-20-2024 17:03-0500 SaO2% (BldA) [Mass fraction] 100 % Vandana Jauregui MD Work Phone: [facility] [employer] 12-20-2024 17:03-0500 Systolic blood pressure 127 mm[Hg] Vandana Jauregui MD Work Phone: [facility] [employer] 12-20-2024 14:55-0500 Body mass index (BMI) [Ratio] 20.67 kg/m2 Vandana Jauregui MD Work Phone: [facility] [employer] 12-20-2024 14:55-0500 Body temperature 98.71 [degF] Vandana Jauregui MD Work Phone: [facility] [employer] 12-20-2024 14:55-0500 Body weight 63.5 kg Vandana Jauregui MD Work Phone: [facility] [employer] 09-18-2024 13:20-0500 Body height 175.3 cm David Tao SENIOR FIRE PROTECTION ENGINEER - SHOE CLERK Work Phone: [facility] [employer] 09-18-2024 13:20-0500 Body mass index (BMI) [Ratio] 17.72 kg/m2 Davidvasile Thomson SENIOR FIRE PROTECTION ENGINEER - SHOE CLERK Work Phone: [employer] 09-18-2024 13:20-0500 Body temperature 98.91 [degF] Davidadriana Thomson SENIOR FIRE PROTECTION ENGINEER - SHOE CLERK Work Phone: [facility] [employer] 09-18-2024 13:20-0500 Body weight 54.43 kg Davidadriana Thomson SENIOR FIRE PROTECTION ENGINEER - SHOE CLERK Work Phone: [employer] 09-18-2024 13:20-0500 Diastolic blood pressure 91 mm[Hg] Davidadriana Thomson SENIOR FIRE PROTECTION ENGINEER - SHOE CLERK Work Phone: [facility] [employer] 09-18-2024 13:20-0500 Heart rate 98 /min Davidadriana Thomson SENIOR FIRE PROTECTION ENGINEER - SHOE CLERK Work Phone: [facility] 09-18-2024 13:20-0500 Respiratory rate 19 /min David Thomson SENIOR FIRE PROTECTION ENGINEER - SHOE CLERK Work Phone: [facility] 09-18-2024 13:20-0500 SaO2% (BldA) [Mass fraction] 98 % David Thomson SENIOR FIRE PROTECTION ENGINEER - SHOE CLERK Work Phone: [facility] 09-18-2024 13:20-0500 Systolic blood pressure 133 mm[Hg] Davdivasile Thomson SENIOR FIRE PROTECTION ENGINEER - SHOE CLERK Work Phone: [facility] 07-22-2024 04:55-0400 Diastolic blood pressure 80 mm[Hg] Wilmar Coker MD Work Phone: [facility] 07-22-2024 04:55-0400 Heart rate 75 /min Wilmar Coker MD Work Phone: [facility] 07-22-2024 04:55-0400 Respiratory rate 16 /min Wilmar Coker MD Work Phone: [facility] 07-22-2024 04:55-0400 SaO2% (BldA) [Mass fraction] 100 % Wilmar Coker MD Work Phone: [facility] 07-22-2024 04:55-0400 Systolic blood pressure 122 mm[Hg] Wilmar Coker MD Work Phone: [facility] 07-22-2024 01:29-0400 Body temperature Wilmar Coker MD Work Phone: [facility] Comment on above: NOTE: Patient Results are Not Corrected for Temperature 07-22-2024 01:06-0400 Body temperature [facility] Comment on above: Result Comment: NOTE: Patient Results ar e Not Corrected for Temperature Performed By: #### 2 [id number] #### MATEUS CHENG ([id number]) [facility] [address] [place] [address] 07-22-2024 00:03-0400 Body height 175.3 cm Wilmar Coker MD Work Phone: [facility] 07-22-2024 00:03-0400 Body mass index (BMI) [Ratio] 18.02 kg/m2 Wilmar Coker MD Work Phone: [facility] 07-22-2024 00:03-0400 Body temperature 98.2 [degF] Wilmar Coker MD Work Phone: [facility] 07-22-2024 00:03-0400 Body weight 55.34 kg Wilmar Coker MD Work Phone: [facility] 09-07-2022 14:42-0400 Body height 175.3 cm Tray Watkins MD [facility] 09-07-2022 14:42-0400 Body mass index (BMI) [Ratio] 17.13 kg/m2 Tray Watkins MD [facility] Phone[facility] 09-07-2022 14:42-0400 Body temperature 98.49 [degF] Tray Watkins MD [facility] 09-07-2022 14:42-0400 Body weight 52.62 kg Tray Watkins MD [facility] 09-07-2022 14:42-0400 Diastolic blood pressure 104 mm[Hg] Tray Watkins MD [facility] 09-07-2022 14:42-0400 Heart rate 113 /min Tray Watkins MD [facility] 09-07-2022 14:42-0400 Respiratory rate 16 /min Tray Watkins MD Work Phone[facility] 09-07-2022 14:42-0400 SaO2% (BldA) [Mass fraction] 98 % Tray Watkins MD Work Phone: [employer] 09-07-2022 14:42-0400 Systolic blood pressure 157 mm[Hg] Tray Watkins MD Work Phone: [facility] 08-10-2022 14:04-0400 Body weight 52.89 kg Tk Saira PA-C Work Phone: [facility] 06-16-2022 12:51-0400 Diastolic blood pressure 99 mm[Hg] Didier Eldridge MD Work Phone: [employer] 06-16-2022 12:51-0400 Heart rate 98 /min Didier Eldridge MD Work Phone: [employer] 06-16-2022 12:51-0400 Respiratory rate 18 /min Didier Eldridge MD Work Phone: [employer] 06-16-2022 12:51-0400 SaO2% (BldA) [Mass fraction] 100 % Didier Eldridge MD Work Phone: [facility] 06-16-2022 12:51-0400 Systolic blood pressure 138 mm[Hg] Didier Eldridge MD Work Phone: [employer] 06-16-2022 11:19-0400 Body height 175.3 cm Didier Eldridge MD Work Phone: [facility] 06-16-2022 11:19-0400 Body mass index (BMI) [Ratio] 17.13 kg/m2 Didier Eldridge MD Work Phone: [facility] 06-16-2022 11:19-0400 Body temperature 97.7 [degF] Didier Eldridge MD Work Phone: [employer] 06-16-2022 11:19-0400 Body weight 52.62 kg Didier Eldridge MD Work Phone[facility] 06-13-2022 19:46-0400 Body height 175.26 cm David Thomson Work Phone: [facility] Work Phone: 06-13-2022 19:46-0400 Body mass index (BMI) [Ratio] 24.37 kg/m2 David Thomson Work Phone: [facility] Work Phone: 06-13-2022 19:46-0400 Body surface area Derived from formula 1.9 m2 David Thomson Work Phone: [facility] Work Phone: 06-13-2022 19:46-0400 Body weight 74.84 kg David Thomson Work Phone: [facility] Work Phone: 06-13-2022 19:46-0400 Diastolic blood pressure 88 mm[Hg] David Thomson Work Phone: [facility] Work Phone: 06-13-2022 19:46-0400 Respiratory rate 16 /min David Thomson Work Phone: [facility] Work Phone: 06-13-2022 19:46-0400 Systolic blood pressure 140 mm[Hg] David Thomson Work Phone: [facility] Work Phone: 06-07-2022 15:01-0400 Body temperature 98.49 [degF] Davidvasile Thomson SENIOR FIRE PROTECTION ENGINEER - SHOE CLERK Work Phone: [facility] 06-07-2022 15:01-0400 Diastolic blood pressure 98 mm[Hg] David Tao SENIOR FIRE PROTECTION ENGINEER - SHOE CLERK Work Phone: [facility] 06-07-2022 15:01-0400 Heart rate 106 /min David Thomson APRN - SHOE CLERK Work Phone: [facility] 06-07-2022 15:01-0400 Respiratory rate 18 /min David Thomson APRN - SHOE CLERK Work Phone: [facility] 06-07-2022 15:01-0400 SaO2% (BldA) [Mass fraction] 99 % David Thomson APRN - SHOE CLERK Work Phone: [facility] 06-07-2022 15:01-0400 Systolic blood pressure 151 mm[Hg] David Thomson APRN - SHOE CLERK Work Phone: [facility] 06-03-2022 20:57-0400 Diastolic blood pressure 96 mm[Hg] David Thomson APRN - SHOE CLERK Work Phone: [facility] 06-03-2022 20:57-0400 Systolic blood pressure 156 mm[Hg] David Thomson APRN - SHOE CLERK Work Phone: [facility] 06-03-2022 20:56-0400 Body height 175.3 cm David Thomson APRN - SHOE CLERK Work Phone: [facility] 06-03-2022 20:56-0400 Body mass index (BMI) [Ratio] 17.72 kg/m2 David Thomson APRN - SHOE CLERK Work Phone: [facility] 06-03-2022 20:56-0400 Body temperature 98.6 [degF] David Thomson APRN - SHOE CLERK Work Phone: [facility] 06-03-2022 20:56-0400 Body weight 54.43 kg David Thomson APRN - SHOE CLERK Work Phone: [facility] 06-03-2022 20:56-0400 Heart rate 102 /min David Thomson APRN - SHOE CLERK Work Phone: [facility] [employer] [facility] 06-03-2022 20:56-0400 Respiratory rate 16 /min David Thomson APRN - SHOE CLERK Work Phone: [facility] 06-03-2022 20:56-0400 SaO2% (BldA) [Mass fraction] 99 % David Thomson APRN - SHOE CLERK Work Phone: [facility] 03-31-2022 11:25-0400 Diastolic blood pressure 99 mm[Hg] Didier Eldridge MD Work Phone: [facility] 03-31-2022 11:25-0400 Heart rate 88 /min Didier Eldridge MD Work Phone: [facility] 03-31-2022 11:25-0400 Respiratory rate 18 /min Didier Eldridge MD Work Phone: [facility] 03-31-2022 11:25-0400 SaO2% (BldA) [Mass fraction] 100 % Didier Eldridge MD Work Phone: [facility] 03-31-2022 11:25-0400 Systolic blood pressure 136 mm[Hg] Didier Eldridge MD Work Phone: [facility] 03-31-2022 10:34-0400 Body height 175.3 cm Didier Eldridge MD Work Phone: [facility] 03-31-2022 10:34-0400 Body mass index (BMI) [Ratio] 16.83 kg/m2 Didier Eldridge MD Work Phone: [facility] 03-31-2022 10:34-0400 Body temperature 97.9 [degF] Didier Eldridge MD Work Phone: [facility] 03-31-2022 10:34-0400 Body weight 51.71 kg Didier Eldridge MD Work Phone: [facility] 11-11-2021 20:06-0500 Diastolic blood pressure 81 mm[Hg] [facility] 11-11-2021 20:06-0500 Heart rate 96 /min [facility] 11-11-2021 20:06-0500 Respiratory rate 16 /min [facility] 11-11-2021 20:06-0500 SaO2% (BldA) [Mass fraction] 100 % [facility] 11-11-2021 20:06-0500 Systolic blood pressure 124 mm[Hg] [facility] 11-11-2021 17:52-0500 Body height 175.3 cm [facility] 11-11-2021 17:52-0500 Body mass index (BMI) [Ratio] 15.8 kg/m2 [facility] 11-11-2021 17:52-0500 Body temperature 98.1 [degF] [facility] 11-11-2021 17:52-0500 Body weight 48.53 kg [facility] Encounters Encounter Date Encounter Type Care Provider Facility Start: 03-23-2025 ambulatory SELF SELF [facility] Start: 03-04-2025 End: 03-04-2025 ambulatory Kan Post [facility] Work Phone: Start: 03-04-2025 End: 03-04-2025 Departed Referred Kan Post MD Work Phone: [facility] Start: 03-04-2025 End: 03-04-2025 ambulatory [facility] Work Phone: Start: 03-04-2025 End: 03-04-2025 Patient encounter procedure [facility] Work Phone: Start: 02-23-2025 ambulatory [facility] Start: 01-26-2025 ambulatory [facility] Start: 01-13-2025 End: 01-13-2025 Emergency department patient visit Denilson Cervantes MD Work Phone: [facility] Department Comment on above: Atypical chest pain (Primary Dx) Start: 12-20-2024 End: 12-20-2024 Emergency department patient visit Vandana Jauregui MD Work Phone: [facility] Comment on above: Radiculopathy, unspe cified spinal region (Primary Dx) Start: 12-18-2024 ambulatory SELF SELF [facility] Start: 12-04-2024 ambulatory SELF SELF [facility] Start: 11-28-2024 ambulatory SELF SELF [facility] Start: 11-21-2024 [facility] Start: 11-14-2024 ambulatory SELF SELF [facility] Start: 11-03-2024 End: 11-03-2024 ambulatory [facility] Start: 11-03-2024 End: 11-03-2024 Subsequent hospital visit by physician David Thomson SENIOR FIRE PROTECTION ENGINEER - SHOE CLERK Work Phone: [facility] Start: 10-17-2024 End: 10-17-2024 ambulatory [facility] Start: 10-17-2024 End: 10-17-2024 Subsequent hospital visit by physician David Thomson SENIOR FIRE PROTECTION ENGINEER - SHOE CLERK Work Phone: [facility] Start: 09-18-2024 End: 09-18-2024 Emergency department patient visit [facility] ED Comment on above: Acute pain of left k nee (Primary Dx); Abrasion, left knee, initial encounter Start: 07-21-2024 End: 07-22-2024 Emergency department patient visit Wilmar Coker MD Work Phone: [facility] Medicine Comment on above: Acute nonintractable headache, unspecified headache type (Primary Dx); Chest pain, unspecified type Start: 08-22-2023 End: 08-22-2023 Emergency department patient visit DAVID THOMSON Facility:[facility] Start: 05-02-2023 Telephone encounter Darrin Prado DO Work Phone: Neurology Comment on above: Patient Update Start: 05-01-2023 End: 05-01-2023 ambulatory Hal Prado DO Work Phone: Neurology Comment on above: Concussion with loss of consciousness, subsequent encounter (Primary Dx); Memory loss Start: 05-01-2023 End: 05-01-2023 Telemedicine consultation with patient Hal Prado DO Work Phone: [facility] Start: 09-07-2022 End: 09-07-2022 Emergency department patient visit Tray Watkins MD Work Phone: [facility] ED Comment on above: Foreign body in vagi na, initial encounter (Primary Dx) Start: 09-01-2022 End: 09-01-2022 ambulatory AMY MACARIO Facility:[facility] Start: 08-10-2022 End: 08-10-2022 Patient encounter procedure [...] 08-03-2022 Emergency department patient visit DANY RED Facility:[facility] Start: 06-16-2022 End: 06-16-2022 Subsequent hospital visit by physician Didier Eldridge MD Work Phone: [facility] [place] Start: 06-13-2022 Tobacco use cessatio n intermediate 3-10 minutes David Thomson Work Phone: [facility] Work Phone: Start: 06-07-2022 End: 06-07-2022 Emergency department patient visit David Thomson SENIOR FIRE PROTECTION ENGINEER - SHOE CLERK Work Phone: [facility] ED Comment on above: Urticaria (Primary D x); Rash and other nonspecific skin eruption Start: 06-03-2022 End: 06-03-2022 Emergency department patient visit David Thomson SENIOR FIRE PROTECTION ENGINEER - SHOE CLERK Work Phone: [facility] ED Start: 03-31-2022 End: 03-31-2022 Subsequent hospital visit by physician Didier Eldridge MD Work Phone: [facility] [place] Comment on above: Melena; Constipation, unspecified constipation type Start: 03-16-2022 End: 03-18-2022 Subsequent hospital visit by physician Anant Mri Room 1 [facility] MRI Comment on above: Cervical radiculopat hy; Cervicalgia; Left arm weakness Start: 02-13-2022 End: 02-15-2022 Subsequent hospital visit by physician Anant Ct Room 1 [facility] CT Scan Comment on above: Abnormal CT scan, ki dney Start: 02-03-2022 End: 02-05-2022 Subsequent hospital visit by physician Ny Xray Room 7 [facility] Radiology Comment on above: Kidney stone Start: 11-11-2021 End: 11-11-2021 Emergency department patient visit DANY RED Facility:[facility] Start: 11-11-2021 End: 11-11-2021 Emergency department patient visit [facility] ED Comment on above: Cellulitis of finger [...] Start: 11-03-2024 Comprehensive metabolic panel Allen hunt SENIOR FIRE PROTECTION ENGINEER - SHOE CLERK Work Phone: Start: 11-03-2024 Hepatitis b surf antibody hbsab Allen hayes SENIOR FIRE PROTECTION ENGINEER - SHOE CLERK Work Phone: Start: 11-03-2024 T. PALLIDUM AB Allen Larry SENIOR FIRE PROTECTION ENGINEER - SHOE CLERK Work Phone: Start: 10-17-2024 Iaadiadoo influenza Allen Larry SENIOR FIRE PROTECTION ENGINEER - SHOE CLERK Work Phone: Start: 09-18-2024 Radiologic examination knee 1/2 views Maddie Buenrostro PARADICHLOROBENZENE MACHINE OPERATOR-C Work Phone: Start: 07-22-2024 Assay of lactate [...] canal cervical w/o contrast matrl David Thomson SENIOR FIRE PROTECTION ENGINEER - SHOE CLERK Work Phone: Start: 02-13-2022 Ct abdomen & pelvis w/o contrst 1/> body re Catracho Villanueva MD Work Phone: Start: 02-03-2022 Radiologic exam abdomen 1 view Catracho Richardson MD Work Phone: Start: 11-11-2021 Comprehensive metabolic panel Berta HUDSON Work Phone: Plan of Treatment Date Care Activity Detail Author Start: 08-22-2033 DTaP/Tdap/Td vaccine (2 - Td or Tdap) DTaP/Tdap/Td vaccine (2 - Td or Tdap) [facility] Start: 08-22-2033 DTaP/Tdap/Td Vaccines (2 - Td or Tdap) DTaP/Tdap/Td Vaccines (2 - Td or Tdap) [facility] Start: 2033 Zoster Vaccines (1 of 2) Zoster Vaccines (1 of 2) [facility] Start: 12-31-2026 Lipid panel Lipids [facility] [employer] Start: 03-04-2025 Urine culture [facility] Start: 03-04-2025 Bacteria identified in Urine by Culture Urine Culture [facility] Start: 07-06-2024 COVID-19 Vaccine ( season) COVID-19 Vaccine ( season) [facility] Start: 07-06-2024 COVID-19 Vaccine ( season) COVID-19 Vaccine ( season) [facility] Start: 07-06-2024 Influenza vaccination Influenza Vaccine (#1) [facility] Start: 06-05-2024 Influenza vaccination Flu vaccine (#1) [facility] Start: 11-14-2023 Depression Monitoring Depression Monitoring [facility] [employer] Start: 2023 Screening for malignant neoplasm of breast [facility] [employer] Start: 07-06-2023 Influenza vaccination INFLUENZA (Season Ended) [facility] Start: 03-02-2023 Depression Monitoring Depression Monitoring [facility] Start: 11-05-2022 DEPRESSION ASSESSMENT DEPRESSION ASSESSMENT [facility] Start: 10-05-2022 End: 10-05-2022 Patient encounter procedure 10/05/2022 Office Visit Family Medicine David Thomson, SENIOR FIRE PROTECTION ENGINEER - SHOE CLERK [address] [place] [id number] [facility] Start: 09-01-2022 End: 09-01-2022 Patient encounter procedure 09/01/2022 Office Visit Family Medicine David Thomson, SENIOR FIRE PROTECTION ENGINEER - SHOE CLERK [address] [place] [address] [facility] Start: 07-06-2022 Influenza vaccination [facility] Start: 06-19-2022 End: 06-19-2022 Patient encounter procedure 06/19/2022 Office Visit Gastroenterology Dulce Mackay, SENIOR FIRE PROTECTION ENGINEER - SHOE CLERK [address] [place] [address] [facility] Gastroenterology Start: 06-16-2022 End: 06-16-2022 Admission to same day surgery center 06/16/2022 Surgery Endoscopy Didier Eldridge MD [address] [place] [address] COLONOSCOPY DIAGNOSTIC [facility] [place] Comment on above: COLONOSCOPY DIAGNOSTIC Start: 06-16-2022 Subsequent hospital visit by physician 06/16/2022 Hospital Encounter Endoscopy Didier Eldridge MD [address] [place] [address] [facility] [place] Start: 06-16-2022 End: 06-16-2022 Colonoscopy flx dx w/collj spec when pfrmd [facility] Start: 06-05-2022 Influenza vaccination Flu vaccine (#1) [facility] Start: 05-12-2022 Depression Monitoring Depression Monitoring [facility] Start: 05-12-2022 Depression Screen Depression Screen [facility] Start: 04-13-2022 End: 04-13-2022 Patient encounter procedure 04/13/2022 Office Visit Gastroenterology Dulce Mackay, SENIOR FIRE PROTECTION ENGINEER - SHOE CLERK [address] [place] [address] [facility] Gastroenterology Start: 04-11-2022 End: 04-11-2022 Patient encounter procedure 04/11/2022 Initial consult Pain Management Kati Perez MD [address] [facility] [id number] [facility] Pain Management Start: 03-31-2022 End: 03-31-2022 Admission to same day surgery center 03/31/2022 Surgery Endoscopy Didier Eldridge MD [address] [place] [address] EGD ESOPHAGOGASTRODUODENOSCOPY [facility] [place] Comment on above: EGD ESOPHAGOGASTRODUODENOSCOPY Start: 03-31-2022 Subsequent hospital visit by physician 03/31/2022 Hospital Encounter Endoscopy Didier Eldridge MD [address] [place] [address] [facility] [place] Start: 03-31-2022 End: 03-31-2022 Colonoscopy flx dx w/collj spec when pfrmd [facility] Start: 03-31-2022 End: 03-31-2022 Esophagogastroduodenoscopy transoral diagnostic [facility] Start: 03-08-2022 End: 03-08-2022 Patient encounter procedure 03/08/2022 Office Visit Pulmonology Alfredo Gómez MD [address] [place] [address] [facility] Pulmonology Start: 03-02-2022 End: 03-02-2022 Patient encounter procedure 03/02/2022 Office Visit Family Medicine David Thomson, SENIOR FIRE PROTECTION ENGINEER - SHOE CLERK [address] [place] [address] [facility] Start: 02-22-2022 End: 02-22-2022 Patient encounter procedure 02/22/2022 Office Visit Pulmonology Alfredo Gómez MD [address] [address] [facility] Pulmonology Start: 02-21-2022 End: 02-21-2022 Patient encounter procedure 02/21/2022 Office Visit Family Medicine David Thomson, SENIOR FIRE PROTECTION ENGINEER - SHOE CLERK [address] [place] [address] [facility] Start: 02-16-2022 End: 02-16-2022 Patient encounter procedure 02/16/2022 Office Visit Gastroenterology Didier Eldridge MD [address] [place] [address] [facility] Gastroenterology Start: 02-13-2022 End: 02-13-2022 Patient encounter procedure 02/13/2022 Appointment Radiology [facility] CT Scan Start: 11-05-2021 DEPRESSION ASSESSMENT DEPRESSION ASSESSMENT [facility] Start: 07-06-2021 Influenza vaccination Flu vaccine (#1) [facility] Start: 2013 HPV TESTING HPV TESTING [facility] Start: 2013 Screening for malignant neoplasm of cervix [facility] Start: 2004 PAP TESTING PAP TESTING [facility] Start: 2004 Screening for malignant neoplasm of cervix [facility] Start: 2002 DTaP/Tdap/Td vaccine (1 - Tdap) DTaP/Tdap/Td vaccine (1 - Tdap) [facility] Start: 2002 Hepatitis B vaccine (1 of 3 - 19+ 3-dose series) Hepatitis B vaccine (1 of 3 - 19+ 3-dose series) [facility] Start: 2002 Hepatitis B Vaccines (1 of 3 - 19+ 3-dose series) Hepatitis B Vaccines (1 of 3 - 19+ 3-dose series) [facility] Start: 2002 Pneumococcal 0-49 years Vaccine (1 of 2 - PCV) Pneumococcal 0-49 years Vaccine (1 of 2 - PCV) [facility] Start: 2002 Urine microalbumin profile DTAP,TDAP,TD (1 - Tdap) [facility] Start: 2001 Hepatitis C screening [facility] Start: 2001 HEPATITIS C SCREENING HEPATITIS C SCREENING [facility] Start: 2001 HIV SCREENING HIV SCREENING [facility] Start: 1998 HIV screening HIV screen [facility] Start: 1996 Varicella vaccination Varicella Vaccines (1 of 2 - 13+ 2-dose series) [facility] Start: 1996 Varicella vaccine (1 of 2 - 13+ 2-dose series) Varicella vaccine (1 of 2 - 13+ 2-dose series) [facility] Start: 1995 Depression Monitoring Depression Monitoring [facility] Start: 1989 PNEUMOCOCCAL (1 - PCV) PNEUMOCOCCAL (1 - PCV) [facility] Start: 1989 Pneumococcal 0-64 years Vaccine (1 - PCV) Pneumococcal 0-64 years Vaccine (1 - PCV) [facility] Start: 1989 Pneumococcal 0-64 years Vaccine (1 of 2 - PCV) Pneumococcal 0-64 years Vaccine (1 of 2 - PCV) [facility] Start: 1989 Pneumococcal 0-64 years Vaccine (1 of 2 - PPSV23) Pneumococcal 0-64 years Vaccine (1 of 2 - PPSV23) [facility] Start: 1989 Pneumococcal Vaccine: Pediatrics (0 to 5 Years) and At-Risk Patients (6 to 64 Years) (1 of 2 - PCV) Pneumococcal Vaccine: Pediatrics (0 to 5 Years) and At-Risk Patients (6 to 64 Years) (1 of 2 - PCV) [facility] Start: 1988 COVID-19 Vaccine (1) COVID-19 Vaccine (1) [facility] Start: 1984 MMR Vaccines (1 of 1 - Standard series) MMR Vaccines (1 of 1 - Standard series) [facility] Start: 1984 Varicella vaccine (1 of 2 - 2-dose childhood series) Varicella vaccine (1 of 2 - 2-dose childhood series) [facility] Start: 01-14-1984 COVID-19 Vaccine (#1) COVID-19 Vaccine (#1) [facility] Start: 1983 HEPATITIS B (1 of 3 - 3-dose series) HEPATITIS B (1 of 3 - 3-dose series) [facility] Start: 1983 Hepatitis C screening Hepatitis C screen [facility] Start: 1983 HIV screening HIV Screening [facility] Start: 1983 Lipid panel Lipid Panel [facility] Start: 1983 Yearly Adult Physical Yearly Adult Physical [facility] End: 07-22-2024 Bacteria identified in Urine by Culture Urine Culture Microbiology Routine Once (Lab) for 1 Occurrences starting 07/22/2024 until 07/22/2024 [facility] Work Phone: Comment on above: Once (Lab) for 1 Occurrences starting until 07/22/2024 Bacteria identified in Urine by Culture Urine Culture Microbiology STAT 07/22/2024 1:27 AM EDT [facility] Work Phone: End: 07-22-2024 Choriogonadotropin ( test) [Presence] in Urine POCT , urine Point of Care Testing Routine Once (Lab) for 1 Occurrences starting 07/22/2024 until 07/22/2024 [facility] Work Phone: Comment on above: Once (Lab) for 1 Occurrences starting until 07/22/2024 Choriogonadotropin ( test) [Presence] in Urine POCT , urine Point of Care Testing Routine 07/22/2024 1:30 AM [facility] Work Phone: End: 07-22-2024 ECG 12 lead ECG 12 lead ECG STAT Once for 1 Occurrences starting 07/22/2024 until 07/22/2024 [facility] Service [facility] Work Phone: Comment on above: Once for 1 Occurrences starting 07/22/20 24 until 07/22/2024 ECG 12 lead ECG 12 lead ECG STAT 07/22/2024 1:14 AM EDT [facility] Work Phone: EKG 12 Lead EKG 12 Lead ECG STAT 12/20/2024 3:00 PM EST [facility] INWEBTURE Limited EKG 12 Lead EKG 12 Lead ECG STAT 01/13/2025 6:12 PM EDT [employer] End: 07-22-2024 Extra Urine [facility] Extra Urine [facility] Lab Timed Once for 1 Occurrences starting 07/22/2024 until 07/22/2024 [facility] Work Phone: Comment on above: Once for 1 Occurrences starting 07/22/20 until 07/22/2024 Extra Urine [facility] Extra Urin e [facility] Lab STAT 07/22/2024 1:27 AM EDT [facility] Work Phone: End: 04-30-2024 HOME SLEEP APNEA TEST (HSAT) HOME SLEEP APNEA TEST (HS AT) Procedures Routine Concussion with loss of consciousness, subsequent encounter Memory loss 1 Occurrences starting 05/01/2023 until 04/30/2024 [facility] Work Phone: Comment on above: 1 Occurrences starting 05/01/2023 until 04/30/2024 End: 01-13-2025 Portable XR Chest AP single view [employer] Comment on above: Once for 1 Occurrences starting 01/14/20 until 01/13/2025 SCANNED COLONOSCOPY REPORT SCANN ED COLONOSCOPY REPORT Procedures Ordered: 06/16/2022 [facility] Work Phone: Comment on above: Ordered: 06/16/2022 Surgical Pathology Surgical Path ology Lab Routine Melena Constipation, unspecified constipation type Release Upon Ordering for 1 Occurrences starting 03/31/2022 [facility] Work Phone: Comment on above: Release Upon Ordering for 1 Occurrences starting 03/31/2022 End: 07-22-2024 Urinalysis complete W Reflex Culture panel - Urine Urinalysis with Reflex Culture and Microscopic Lab STAT STAT (Lab) for 1 Occurrences starting 07/22/2024 until 07/22/2024 [facility] Work Phone: Comment on above: STAT (Lab) for 1 Occurrences starting until 07/22/2024 Urinalysis complete W Reflex Culture panel - Urine Urinalysis with Reflex Culture and Microscopic Lab STAT 07/22/2024 1:27 AM EDT [facility] Work Phone: End: 09-09-2023 XR ANKLE GENERAL 3V AP/LAT/OBL LEFT XR ANKLE GENERAL 3V AP/LAT/OBL LEFT Radiology Routine Sprain of anterior talofibular ligament of left ankle, initial encounter Sprain of posterior talofibular ligament of left ankle, initial encounter Sprain of deltoid ligament of left ankle, initial encounter Closed nondisplaced avulsion fracture of left talus, initial encounter 1 Occurrences starting 08/10/2022 until 09/09/2023 [facility] Work Phone: Comment on above: 1 Occurrences starting 08/10/2022 until 09/09/2023 End: 11-11-2021 XR FINGER RIGHT (MIN 2 VIEWS) [facility] Work Phone: Comment on above: Once for 1 Occurrences starting 11/11/19 until 11/11/2021 [facility] Payers Date Payer Category Payer Self-pay 2024 Unknown [id number] 2023 Unknown [id number] 2021 Medicaid [id number] 2021 Unknown 2014 Medicaid [id number] 1. [id number] 1983 Unknown [id number] 2.16.8 [id number] 1983 Unknown [id number] 2.16.8 [id number] 1983 Unknown [id number] 2.16.8 [id number] 1983 Unknown [id number] 2.16.8 [id number] 1983 Unknown [id number] 2.16.8 [id number] 1983 Unknown [id number] 2.16.8 40.1.450894.3.579.2.983 1983 Unknown [id number] 2.16.8 40.1.090229.3.579.2.983 1983 Unknown [id number] 2.16.8 40.1.273502.3.579.2.983 1983 Unknown [id number] 2.16.8 40.1.649850.3.579.2.983 1983 Unknown [id number] 2.16.8 40.1.144742.3.579.2.983 1983 Unknown [id number] 2.16.8 40.1.653392.3.579.2.983 1983 Unknown [id number] 2.16.8 40.1.320457.3.579.2.983 1983 Unknown [id number] 2.16.8 40.1.801936.3.579.2.983 1983 Unknown [id number] 2.16.8 [id number] Unknown [id number] 2.16.8 [id number] Social History Date Type Detail Facility Start: 05-12-2021 End: 06-02-2022 Tobacco smoking status NDIS Smokes tobacco daily [employer] Work Phone: Start: 05-12-2021 End: 09-18-2024 Cigarettes smoked current (pack per day) - Reported 0.5 [employer] Start: 11-11-2021 End: 01-13-2025 Alcohol intake Lifetime non-drinker (finding) [employer] Phone: Start: 1985 Sex Assigned At Not on file M [employer] Phone: Start: 01-24-2022 End: 07-22-2024 Exposure to SARS-CoV-2 (event) Not sure [facility] Start: 05-12-2021 End: 06-02-2022 Tobacco use and exposure Smokeless tobacco non-user [employer] Phone: Start: 11-15-2021 End: 11-22-2021 History SDOH Alcohol Frequency 1 [employer] Phone: Start: 11-15-2021 History SDOH Financial 5 [employer] Phone: Start: 07-22-1999 History of tobacco use Cigarette Smo ker [employer] Phone: Start: 03-21-2022 End: 03-31-2022 Exposure to SARS-CoV-2 (event) Yes [employer] Phone: Start: 06-07-2022 End: 09-07-2022 History SDOH Alcohol Std Drinks 0 [employer] Phone: Start: 05-01-2023 Alcohol intake Ex-drinker (finding) [facility] Start: 11-15-2021 End: 09-18-2024 Alcohol Use Disorder Identification Test - Consumption [AUDIT-C] [employer] How often to you hav e a drink containing alcohol? Never [employer] How many standard dr inks containing alcohol do you have on a typical day? Patient does not drink [employer] (I/We) worried wheth er (my/our) food would run out before (I/we) got money to buy more. Never true [facility] Start: 05-12-2021 End: 03-06-2025 Sex Female (finding) [facility] Start: 03-04-2025 Tobacco smoking stat us NHIS Smoker (finding) [facility] Start: 1985 Sex Assigned At Female F [facility] Clinical Notes 11-11-2021 to 03-04-2025 Note Date & Type Note Facility 03-04-2025 Evaluation note Diagnosis Onset Date Resolution Decreased urination acute March 04, 2025 6:26pm Leg swelling acute March 04, 2025 6:26pm [facility] Work Phone: 1(289) 691-465902-15-2025 Hospital Discharge instructions* Discharge Instructions* Vandana Jauregui MD - 12/20/2024 5:24 PM EST Start Medrol Dosepak tomorrow and take as directed until complete. Use Flexeril every 8 hours as needed for muscle spasms. Use yjek-tkm-lftlhoj products such as IcyHot Biofreeze or similar products as needed and directed. Heat or ice for 5 to 10-minute intervals as desired. Follow-up with primary care provider soon as possible. Please return immediately for any worsening symptoms or any acute conc erns * Attachments The following attachments cannot be sent through Care Everywhere. * Degenerative Disc Disease: General Info (Lithuanian) [facility] Discharge instructions* Discharge Instructions* Maddie Buenrostro NP-C - 09/18/2024 2:16 PM EST Take/apply medications as directed. RICE (rest, ice, compress, elevate). Follow-up with [facility]. Return to ED if any new, or worsening symptoms. * Attachments The following attachments cannot be sent through Care Everywhere. * Knee Pain or Injury (Lithuanian) * Abrasions (Lithuanian) * RICE: General Info (Lithuanian) [facility] Discharge instructions* Discharge Instructions* Wilmar Coker MD - 07/22/2024 4:46 AM EDT You were seen at [facility] ER or headache and chest pain and [...] in the next 1-2 weeks with a machine cloth examiner moy primary care doctor or doctor while incarcerated to consider further testing and work-up as needed. You should return to the ER for persistent and worsening chest pain, especially if it radiates to the jaw or back and is associated with shortness of breath and increase or new lower extremity swelling, or for any other concerns. Below is reference to the [place] for additional information on chest pain symptoms. https://www.heart.org/en/health-topics/house-calls/zyuh-akjf-bkphw-pain-mean#:~: text=The%20most%20im portant%20thing%20to,dizziness%2C%20or%20shortness%20of%20breath. documented in this [facility] Work Phone: 1(495) 916-471209-16-2024 Emergency department Note* Wilmar Coker MD - [...] time.. pt received 3 nitro glycerin at long-term and 325mg of aspirin via EMS. Pt denies fevers, abdominal pain, nausea, vomiting, rhinorrhea. Still was smoking prior to long-term and does endorse some difficulty breathing today [...] ED Course & MDM No data recorded [place] Coma Scale Score: 15 (07/22/24 0009 : [...] Coker MD 07/22/24 0103 documented in this [facility] Work Phone: 1(909) 495-387209-16-2024 Physician Emergency department Note* Wilmar Coker MD [...] time.. pt received 3 nitro glycerin at long-term and 325mg of aspirin via EMS. Pt denies fevers, abdominal pain, nausea, vomiting, rhinorrhea. Still was smoking prior to long-term and does endorse some difficulty breathing today [...] work-up Procedure Procedures Wilmar Coker MD 07/22/24102 [facility] Work Phone: 1(771) 981-626306-28-2023 Miscellaneous Notes* Telephone Encounter - Amy Packer - 05/02/2023 6:15 PM EDT 05/02/2023 After visit summary faxed to David Thomson [facility] [phone] with confirmation received. Amy Packer Lpn documented in this encounterOhiohealth [facility]06-28-2023 NoteHNO ID: [id number] Author: Patti Velazquez Service: ? Author Type: ? Type: Progress Notes Filed: 05/02/2023 1:15 PM Note Text: Patient was contacted and accepted follow up appt with Dr. Prado on 10/23 (first available) She could not record the phone number for further scheduling at the time of the phone call so a [employer] message was sent and the phone numbers for home sleep apnea study and for neuropsychology were given.[facility]06-27-2023 NoteHNO ID: [id number] Author: Hal Prado, DO Service: ? Author Type: Physician Type: Progress Notes Filed: 05/02/2023 7:44 AM Note Text: [facility] Neurologic [place] New Patient Consultation May 01, 2023 Visit [...] have been on sumatriptan when living in [place], moving to [place] in 2020. She feels she has memory [...] as still unfamiliar with the state of [place], used more for unfamiliar area. She admits [...] D3 (CITRACAL+D) 315 (more content not included)... [facility]06-27-[facility] History of Present illness Narrative* Hal Prado, DO - 05/01/2023 12:42 PM EDT [facility] [place] New Patient Consultation May 01, 2023 Visit [...] have been on sumatriptan when living in [place], moving to [place] in 2020. She feels she has memory [...] as still unfamiliar with the state of [place], used more for unfamiliar area. She admits [...] No cervical spine fracture or traumatic malalignment. Home Health Aide: PSCB Transcribe Date/Time: Mar 30 2023 11:21P [...] contact me at my clinic. Sincerely, Hal Prado D.O. I spent 55 minutes in the visit/call with the patient located at work in [place], [place]. Physician in office in [place], [place]. I have communicated my name and active licensure. The patient's identity and physical location wereverified at the time of this visit. Either the patient or their legal international sales representative has been informed of the risks and benefits of -- and alternatives to -- treatment through a remote evaluation andconsents to proceed with the evaluation remotely. documented in this encounterOhiohealth [facility]11-03-2022 Hospital Discharge instructions* Discharge Instructions* Tray Watkins MD - 09/07/2022 3:08 PM EDT RETURN FOR NEW OR WORSENING SYMPTOMS. * Attachments The following attachments cannot be sent through Care Everywhere. * Foreign Body in the Vagina (Lithuanian) [facility] Work Phone: [phone]) 523-703510-28-2022 NoteHNO ID: [id number] Author: Amy Macario PA-C Service: ? Author Type: Physician Sensitometrist Type: Progress Notes Filed: 09/01/2022 4:03 PM [...] X-Rays The patient's pertinent medical history from [facility] has been reviewed. PFOMIS forms have been reviewed. The patient's history of present illness has been confirmed. PHYSICAL EXAM: left ankle Physical examination reveals an alert and oriented patient who is in no acute distress while sitting and is of normal mood and affect. [facility] 10/12/2021 Gait Cycle: Normal Yes, Limp: none. [...] required reviewed the patie (more content not included)...[facility]10-06-[facility] Instructions* Patient Instructions* Tk Dominguez PA-C - 08/10/2022 2:19 PM EDT [...] inclement weather here is an online resource: http://www.Spotlight.fm/ documented in this encounterOhiohealth [facility]10-06-2022 History of Present illness Narrative* Tk Dominguez [...] new WB xray and f/u with Claudia Neeyl or Amy Macario PA-C. 13. Written work [...] performed on 08/03/22, and available in the [facility] health record, showed lateral talus avulsion [...] which included preparing to see the patient, malw-[id number]-dkyg patient care, completing clinical documentation, obtaining and/or reviewing separately obtained history, performing a medically appropriate examination, counseling and educating the pat ient/family/caregiver, ordering medications, tests, or procedures, communicating with other HCPs (not separately reported), independently interpreting results (not separately reported), communicatingresults to the patient/family/caregiver and care coordination (not separately reported) Tk Dominguez PA-C Orthopedic Foot and Ankle documented in this encounterOhiohealth [facility]09-29-2022 NoteHNO ID: [id number] Author: RT Elif(R) Service: Radiology Author Type: [...] BY: RT Elif(R) August 02, 2022 11:09 [id number] NoteHNO ID: [id number] Author: RT Angelia(R) Service: Radiology Author Type: [...] IV DATA: Not applicable SIGNED BY: RT Angelia(R) November 11, 2021 4:09 [facility] HospitalEvaluation note* Diagnosis Cellulitis of finger of right hand- Primary Cellulitis and abscess of finger, unspecified documented in this encounter [employer] Phone: evaluation note* Diagnosis Kidney stone Calculus of kidney documented in this encounter [employer] Phone: evaluation note* Diagnosis Abnormal CT scan, kidney Nonspecific (abnormal) findings on radiological and other examination of genitourinary organs documented in this encounter [employer] Phone: evaluation note* Diagnosis Cervical radiculopathy Brachial neuritis or radiculitis nos Cervicalgia Left arm weakness Other musculoskeletal symptoms referable to limbs documented in this encounter [employer] Phone: evalovosrh note* Diagnosis Melena Blood in stool Constipation, unspecified constipation type Gastritis without bleeding Unspecified gastritis and gastroduodenitis without mention of hemorrhage documented in this encounter [employer] Phone: evaluation note* Diagnosis Urticaria- Primary Urticaria, unspecified Rash and other nonspecific skin eruption Blood in stool Constipation, unspecified constipation type documented in this encounter [employer] Phone: evaluation note* Diagnosis Constipation Unspecified constipation documented in this encounter [employer] Phone: evaluation note* Diagnosis Closed nondisplaced avulsion fracture of left talus, initial encounter- Primary Sprain of anterior talofibular ligament of left ankle, initial encounter Sprain of posterior talofibular ligament of left ankle, initial encounter Sprain of deltoid ligament of left ankle, initial encounter documented in this encounter [facility]* Diagnosis Foreign body in vagina, initial encounter- Primary [facility] evaluation note* Diagnosis Concussion with loss of consciousness, subsequent encounter- Primary Memory loss documented in this encounter [facility]* Diagnosis Acute pain of left knee- Primary Abrasion, left knee, initial encounter documented in this encounter [facility]* Diagnosis Acute nonintractable headache, unspecified headache type- Primary Chest pain, unspecified type documented in this encounter [facility] Work Phone: Evaluation note* Diagnosis Radiculopathy, unspecified spinal region- Primary documented in this encounter [facility]* Diagnosis Atypical chest pain- Primary Other chest pain documented in this encounter [facility] noteNo assessment information available [facility] Work Phone: Hospital Discharge instructions* Attachments The following attachments cannot be sent through Care Everywhere. * Cellulitis (Lithuanian) [facility] Work Phone: [facility] Discharge instructions* Attachments The following attachments cannot be sent through Care Everywhere. * Gastritis (Lithuanian) * EGD (Upper Endoscopy): Pre-op (Lithuanian) * Coronavirus Disease (COVID-19): General Info (Lithuanian) [facility] Work Phone: Hospital Discharge instructions* Attachments The following attachments cannot be sent through Care Everywhere. * Urticaria (Lithuanian) * Rash (Lithuanian) documented in [facility] Phone: Hospital Discharge instructions* Attachments The following attachments cannot be sent through Care Everywhere. * Chest Pain (Lithuanian) [facility] (n[facility]ative)* Diagnostic Procedure Only [...] COMPLETE MINIMUM 3 VIEWS Tk Dominguez PA-C [address] [place] [address] Xr Imaging Referral ID Status Reason Start Date Expiration Date Visits Requested Visits Authorized [id number] Pending Review Auto-Generat ed Referral 08/10/2022 09/09/2023 1 1 [facility] for referral (narrative)* Diagnostic Procedure Only (Routine) - Pending Review Specialty Diagnoses / Procedures Referred By Contact Referred To Contact [facility] Diagnoses Concussion with loss of consciousness, subsequent encounter Memory loss Procedures HOME SLEEP APNEA TEST (HSAT) SLEEP STD AIRFLOW HRT RATE&[place] [address] [place] [address] [facility] [address] [place] [address] Referral ID Status Reason Start Date Expiration Date Visits Requested Visits Authorized [id number] Pending Review Auto-Generat ed Referral 05/01/2023 04/30/2024 1 1 [facility] for visit Narrative* Auth/Cert Specialty Diagnoses / Procedures Referred By Louie t Referred To Contact Diagnoses Melena Constipation, unspecified melena, constipation; K92.1, K59.00 Procedures RI ESOPHAGOGASTRODUODENOSCOPY TRANSORAL DIAGNOSTIC RI COLONOSCOPY FLX DX W/COLLJ SPEC WHEN PFRMD RI EGD TRANSORAL BIOPSY SINGLE/MULTIPLE RI EGD BALLOON DILATION ESOPHAGUS <30 MM DIAM RI COLONOSCOPY W/BIOPSY SINGLE/MULTIPLE RI COLSC FLX W/RMVL OF TUMOR POLYP LESION SNARE TQ EGD ESOPHAGOGASTRODUODENOSCOPY COLONOSCOPY DIAGNOSTIC Didier Eldridge MD [address] [place] [address] [facility] [address] [place] [address] Referral ID Status Reason Start Date Expiration Date Visits Re quested Visits Authorized 1 1 [email or web address] Phone: reason for visit Narrative* Auth/Cert Specialty Diagnoses / Procedures Referred By Louie t Referred To Contact Diagnoses Colon cancer screening Screening Procedures RI COLONOSCOPY FLX DX W/COLLJ SPEC WHEN PFRMD RI COLONOSCOPY W/BIOPSY SINGLE/MULTIPLE RI COLSC FLX W/RMVL OF TUMOR POLYP LESION SNARE TQ COLORECTAL CANCER SCREENING, NOT HIGH RISK Didier Eldridge MD [address] [place] [address] [facility] [address] [place] [address] Referral ID Status Reason Start Date Expiration Date Visits Re quested Visits Authorized 1 1 [email or web address] Phone: Reason for Referral Specialty Diagnoses / Procedures Referred By Humphreyac t Referred To Contact Radiology Diagnoses Abnormal CT scan, kidney Procedures CT Urogram Catracho Villanueva MD [address] [facility] [address] [place] [address] Referral ID Status Reason Start Date Expiration Date V isits Requested Visits Authorized Pending Review 02/13/2022 02/03/2023 1 1 Specialty Diagnoses / Procedures Referred By Humphreyac t Referred To Contact Radiology Diagnoses Cervical radiculopathy Cervicalgia Left arm weakness Procedures MRI CERVICAL SPINE WO CONTRAST David Thomson, SENIOR FIRE PROTECTION ENGINEER - SHOE CLERK [address] [place] [address] Referral ID Status Reason Start Date Expiration Date Visits Re quested Visits Authorized [id number] Closed 03/03/2022 06/01/2022 1 1 Specialty Diagnoses / Procedures Referred By Louie pineda Referred To Contact Orthopedic Surgery Diagnoses Acute pain of left knee Maddie Buenrostro NP-C [address] [place] [address] [facility] [address] [facility] [address] [place] [address] Referral ID Status Reason Start Date Expiration Date V isits Requested Visits Authorized [id number] Open Specialty Services Required 09/18/2024 09/18/2025 1 1 Scheduling Instructions [facility] MedicineAnant Comments The [...] Date/ Time Advance Directives No March 04 025 6:24pm Chief Complaint and Reason for Visit [...] Procedures CT Urogram Catracho Villanueva MD [address] [facility] [address] [place] [address] Referral ID Status Reason Start Date Expiration Date V isits Requested Visits Authorized [id number] Pending Review 02/13/2022 02/03/2023 1 1 Specialty Diagnoses / Procedures Referred By Louie pineda Referred To Contact Radiology Diagnoses Cervical radiculopathy Cervicalgia Left arm weakness Procedures MRI CERVICAL SPINE WO CONTRAST David Thomson, SENIOR FIRE PROTECTION ENGINEER - SHOE CLERK [address] [place] [address] Referral ID Status Reason Start Date Expiration Date Visits Re quested Visits Authorized [id number] Closed 03/03/2022 06/01/2022 1 1 Reason Comments [...] Patient c/o chest pa in starting around 0. Reason Comments Numbness Pt reports numbness to bilateral arms and legs for the last couple days. States she has had 2 surgeries to her neck previously. She was standing outside and kept losing feeling to her arms and legs. [place] very warm and thought she was going to pass out. Reason Comments Chest Pain Patient to the emerg ency department by EMS from [facility] for Chest Pain while eating dinner. Patient [...] Date End Da te bacitracin-polymyxin b (POLYSPORIN) [id number] UNIT/GM ointment Apply topically 2 times daily. [...] ider: Suellen Vieyra RN)1100 (NoRateChange - Provider: Jennifer Esquivel APRN - [employer]ICE TEAM MEMBER)1109 (Anesthesia Volume Adjustment - Provider: KANU Foote [...] Eldridge MD - Comment: dose apprpximate per ) Scheduled Medication Order 06/05/2022 06/06/2022 06/07/2022 0.9 [...] 1517 1540 (Given - Provid er: Danielito Potrillo RN) Continuous Medication Order 06/14/2022 06/15/2022 06/16/2022 0.9 % sodium chloride infusion IntraVENous, at 100 mL/hr, CONTINUOUS, Starting on Sun06/16/22 at 1200, Pre-procedure(GI) 1142 (New Bag - Prov ider: Patti Doty RN)1207 (NoRateChange - Provider: Lida Lemus APRN - [employer]ICE TEAM MEMBER) PRN Medication Order 06/14/2022 06/15/2022 06/16/2022 simethicone [...] 0410 (New Bag - Prov ider: Nikki Michael, TOM)0430 (Stopped - Provider: Nikki Michael RN) alum-mag [...] Care Teams (unrecognized sec tion and content) Film Library Clerk Relationship Specialty Start Date End Date David Thomson, SENIOR FIRE PROTECTION ENGINEER - SHOE CLERK [address] [place] [address] PCP - General Family Medicine 11/22/21 Film Library Clerk Relationship Specialty Start Date End Date David Thomson, SENIOR FIRE PROTECTION ENGINEER - SHOE CLERK [address] [place] [address] PCP - General Family Medicine 11/22/21 Film Library Clerk Relationship Specialty Start Date End Date David Thomson SENIOR FIRE PROTECTION ENGINEER - SHOE CLERK [address] [facility] [address] PCP - General Family Medicine 11/22/21 Film Library Clerk Relationship Specialty Start Date End Date David Thomson SENIOR FIRE PROTECTION ENGINEER - SHOE CLERK [address] [place] [address] PCP - General Family Medicine 11/22/21 Film Library Clerk Relationship Specialty Start Date End Date David Thomson SENIOR FIRE PROTECTION ENGINEER - SHOE CLERK [address] [facility] [address] PCP - General Family Medicine 11/22/21 Film Library Clerk Relationship Specialty Start Date End Date David Thomson, SENIOR FIRE PROTECTION ENGINEER - SHOE CLERK [address] [facility] [address] PCP - General Family Medicine 11/22/21 Film Library Clerk Relationship Specialty Start Date End Date David Thomson SENIOR FIRE PROTECTION ENGINEER - SHOE CLERK [address] [place] [address] PCP - General Family Medicine 11/22/21 Film Library Clerk Relationship Specialty Start Date End Date David Thomson [address] [place] [address] PCP - General Internal Medicine 08/03/22 Film Library Clerk Relationship Specialty Start Date End Date David Thomson [address] [place] [address] PCP - General Internal Medicine 08/03/22 Film Library Clerk Relationship Specialty Start Date End Date David Thomson [address] [place] [address] PCP - General Internal Medicine 08/03/22 Film Library Clerk Relationship Specialty Start Date End Date David Thomson, SENIOR FIRE PROTECTION ENGINEER - SHOE CLERK [address] [facility] [address] [place] [address] PCP - General Family Medicine 11/22/21 Film Library Clerk Relationship Specialty Start Date End Date David Thomson, SENIOR FIRE PROTECTION ENGINEER - SHOE CLERK [address] [facility] [address] [place] [address] PCP - General Family Medicine 11/22/21 Film Library Clerk Relationship Specialty Start Date End Date Generic Provider, No Assigned Pcp, [place] [address] PCP - General Psychologist Educational 07/21/24 Film Library Clerk Relationship Specialty Start Date End Date David Thomson, SENIOR FIRE PROTECTION ENGINEER - SHOE CLERK [address] [facility] [address] [place] [address] PCP - General Family Medicine 11/22/21 Film Library Clerk Relationship Specialty Start Date End Date David Thomson, SENIOR FIRE PROTECTION ENGINEER - SHOE CLERK [address] [facility] [address] [place] [address] PCP - General Family Medicine 11/22/21 Film Library Clerk Relationship Specialty Start Date End Date David Thomson, SENIOR FIRE PROTECTION ENGINEER - SHOE CLERK [address] [facility] [address] [place] [address] PCP - General Family Medicine 11/22/21 Team [...] section and content) DATE CREATED AUTHOR 06/10/2022 [facility] DATE CREATED AUTHOR AUTHOR'S ORGANIZ ATION 08/07/2022 [facility] DATE CREATED AUTHOR AUTHOR'S ORGANIZ ATION 10/15/2022 [facility] DATE CREATED AUTHOR AUTHOR'S ORGANIZ ATION 08/23/2023 [facility] DATE CREATED AUTHOR AUTHOR'S ORGANIZ ATION 07/29/2024 [facility] DATE CREATED AUTHOR AUTHOR'S ORGANIZ ATION 09/21/2024 [facility] DATE CREATED AUTHOR AUTHOR'S ORGANIZ ATION 01/16/2025 [facility] DATE CREATED AUTHOR AUTHOR'S ORGANIZ ATION 03/10/2025 [facility] DATE CREATED AUTHOR AUTHOR'S ORGANIZ ATION 03/24/2025 [facility] DATE CREATED AUTHOR AUTHOR'S ORGANIZ ATION 06/07/2025 [facility] Source Comments (unrecognize d section and content) In the event this informatio n is protected by the Federal Confidentiality of Alcohol and Drug Abuse Patient Records regulations: The Federal rules restrict any use of the information to criminally investigate or prosecute any alcohol or drug abuse patient.[facility] CenterIn the event this information is protected by the Federal Confidentiality of Alcohol and Drug Abuse Patient Records regulations: The Federal rules restrict any use of the information to criminally investigate or prosecute any alcohol or drug abuse patient.[facility] CenterIn the event this information is protected by the Federal Confidentiality of Alcohol and Drug Abuse Patient Records regulations: The Federal rules restrict any use of the information to criminally investigate or prosecute any alcohol or drug abuse patient.[facility] Goals (unrecognized section and content) Goals may [...] BE BASED ON THE PRIMARY CLINICAL RECORDS. [facility]. provides no warranty or guarantee of the accuracy or completeness of information in this document.
--- NOTE | 2025-06-18 11:14 | PC.NURSE ---
Nursing Note Cardiac Stress Test Reviewed: Medication, allergies and patient history reviewed. Stress Test: [x ] Patient tolerated stress test well. [ ] Patient unable to tolerate walking on treadmill. Switched to Lexiscan stress test. [x ] No chest pain noted per patient [ ] Chest pain that resolved prior to leaving stress lab. [x ] No dyspnea noted. [ ] Dyspnea that resolved prior to leaving stress lab. [ x] Patient left stress lab asymptomatic and hemodynamically stable. [ ] Patient taken to the Emergency Room due to non-resolving symptoms following stress test. [ ] Patient achieved target heart rate. [ ] Patient unable to achieve target heart rate. [ ] Aminophylline administered as reversal agent to Lexiscan (Regadenoson). [ ] Nitro administered. Nursing Comments:Pt had Lexiscan test done. Tolerated well no complaints. Pt ambulated to cafeteria for breakfast prior to second set of images.
[2025-06-18] MEDS: REGADENOSON 0.4 MG/5 ML SYRINGE IV (11:18)
--- NOTE | 2025-06-18 19:52 | PM.STRESS ---
Stress Test Stress Test Allergies Allergy/AdvReac Type Severity Reaction Status Date / Time amoxicillin Allergy Severe Anaphylaxis Verified 04/21/25 09:27 tramadol Allergy Severe Anaphylaxis Verified 04/21/25 09:27 hydroxyzine (From Atarax) Allergy Intermediate Vomiting Verified 04/21/25 09:27 Requesting physician: EUFEMIA HUGGINS Procedure: This was a Lexiscan stress test with myocardial perfusion imaging performed at the [facility] on 06/18/2025. Informed consent was obtained. An intravenous line was secured. The patient was attached to electrocardiographic monitoring. Lexiscan 0.4 mg was infused intravenously followed by administration of Cardiolite. The patient on to obtain myocardial perfusion imaging. Resting heart rate was 86 bpm and peak heart rate was 107 bpm. Resting blood pressure was 120/92 and peak blood pressure was 132/93. General Information: Reason for Stress Test: Chest pain, preop clearance. Cardiac History and Risk Factors: None. Resting 12 - Lead Electrocardiogram: Normal sinus rhythm, rightward axis. Stress Test: Protocol: Pharmacologic stress with Lexiscan. Exercise Capacity: Not assessed. Blood Pressure Response: Resting hypertension. Rhythm: Sinus rhythm. No arrhythmias. ST - Response: No ST changes. Patient Response: No symptoms. Interpretation: 1. No evidence of ischemic ST changes seen following infusion of Lexiscan. 2. Myocardial perfusion images will be reported separately.
== END 2025-06-18 09:59 | disposition home or self-care (01) ==
LOC: NM 09:58
PROVIDERS: PCP Nurse Practitioner Family; Visit Provider Nurse Practitioner Family
DX: R07.9 Chest pain, unspecified (principal)
CPT/HCPCS: 78452; 93017; A9500; J2785

== ENCOUNTER 2025-07-18 22:06 | Emergency (ER) | payer OTHER, SELFPAY ==
--- OUTSIDE RECORDS SUMMARY | 2025-07-18 22:15 | XMS_ITS | CCD ---
Author Organization [facility] Care Team Providers Care Purchasing Internship Name Role Phone Unavailable Primary Care Provider Unavailabl e Alix CIRCUS RIDER - KAIWHAKAHAERE, David Akhtar Primary Care Provi talib Alix CIRCUS RIDER - TYSHAWN, David Akhtar Primary Care Provi talib David Thomson Unavailable [phone] Unavailable Unavailable DANY RED Attending Unavailable David Thomson Primary Care Provider Alix CIRCUS RIDER - KAIWHAKAHAEREDavid Primary Care Provi talib David Thomson Primary Care Provider [phone] HAL PRADO Attending Unavailab le DAVID THOMSON Primary Care Unavailable AMY MACARIO Attending Unavailable DANY RED Referring Unavailable DAVID THOMSON Primary Care Unavailable DAVID THOMSON Primary Care Unavailable Alix CIRCUS RIDER - David VILLAGRAN Primary Care Provi talib DAVID THOMSON Primary Care Unavailable Generic Provider , No Assigned Pcp Primary Car e Provider Unavailable ALLEN JUAREZ Referring Unavailable DAVID THOMSON Primary Care Unavailable DAVID THOMSON Primary Care Unavailable ANAHY CORREA [id number] Attending Unavailable DAVID THOMSON Primary Care Unavailable VANDANA JAUREGUI Attending Unavailable ALLEN JUAREZ Referring Unavailable DAVID THOMSON Primary Care Unavailable Kan Post MD Attending Provider Kan Post Attending Unavailable Kan Post Admitting Unavailable SELF, SELF Referring Unavailable SELF, SELF Primary Care Unavailable Pedro Pablo GRAVES Attending Unavailable SELF, SELF Referring Unavailable ELY, [...] PROVIDER, NO ASSIGNED PCP Primary Care Unavailable Unavailable Primary Care Provider Unavailabl e [facility] DH[facility]WAL SELVODuran F Admitting Unavailable [facility] DELMER SELVON F Attending Unavailable No Family, Physician Primary Care Unavailable Allergies Allergy Classification Reported Allergen(s) Allergy Type Date of Onset Reaction(s) Facility (20 sources) traMADol; Translations: [Tramadol] Drug Allergy 1 Unknown, Rash, Anaphylaxis [facility] In[employer]ous Work Phone: (5 sources) Amoxapine And Related Propensity to adverse reactions to drug [facility] (20 sources) Amoxicillin; Translations: [Amoxicillin TABS] Drug Allergy 2 Rash, Hives, Anaphylaxis [facility] (12 sources) hydrOXYzine; Translations: [Hydroxyzines] Drug Allergy 2 Itching, Unknown [facility] (2 sources) hydrOXYzine; Translations: [HYDROXYZINE] Drug Allergy 2 [facility] Other [place] [facility] (1 source) Amoxicillin Drug Allergy 5 [facility] (1 source) traMADol Drug Allergy 5 [facility] Medications Current Medications Medication Drug Class(es) Dates Sig (Normalized) Sig (Original) [id number] 200 actuat albuterol 0.09 mg/actuat metered dose inhaler (7 sources) beta2-Adrenergic Agonist Start: 06-23-2025 Start: 11-14-2022 take 2 puff(s) by inhalation every six hours as needed for wheezing albuterol sulfate HFA (PROVENTIL;VENTOLIN;PROAIR) 108 (90 Base) MCG/ACT inhaler Indications: Chronic [...] Start: 08-10-2022 take 1 tablet by herbert once daily aspirin, enteric coated (ECOTRIN LOW [...] Comment on above: Take 1 tablet by [facility] once daily. bacitracin 0.5 unt/mg / polymyxin b 10 unt/mg topical ointment (1 source) Polymyxin-class Antibacterial Start: 09-18-2024 End: 09-25-2024 bacitracin-polymyxin b (POLYSPORIN) [id number] UNIT/GM ointment Apply topically 2 times daily. 28.4 g 09/18/2024 09/25/2024 Active bisacodyl 10 mg rectal suppository (2 sources) Stimulant Laxative Start: 06-23-2025 Start: 06-23-2025 take 5 mg by mouth once daily 5 mg, Oral, DAILY, First dose on Sun06/23/25 at 1700, Until Discontinued, Do not crush or break., Post-op buprenorphine 8 mg / naloxone 2 mg sublingual film (3 sources) Partial Opioid Agonist, Opioid Antagonist Start: 03-04-2025 Buprenorphine-Naloxone 8-2 mg film Active 1 FILM SUBLINGUAL Daily March 04, 2025 12:00am Buprenorphine HCl-Naloxone HCl (SUBOXONE SL) (2 sources) Buprenorphine HC l-Naloxone HCl (SUBOXONE SL) Place under the tongue Active calcium carbonate 500 mg chewable tablet (1 source) Start: 06-23-2025 cephalexin 500 mg oral capsule (3 sources) Cephalosporin Antibacterial Start: 06-01-2022 End: 06-08-2022 take 1 capsule by mouth in the [...] as needed. 30 g 0 06/07/2022 Active magnesium hydroxide 80 mg/ml oral suspension (1 source) Start: 06-23-2025 methylPREDNISolone 4 mg oral tablet (4 sources) [...] (before breakfast) 90 capsule 1 02/16/2022 Active ondansetron (ZOFRAN-ODT) disintegrating tablet 4 mg (1 source) Start: 06-23-2025 ondansetron (ZOFRAN-ODT) disintegrating tablet 4 mg oxyCODONE (2 sources) Opioid Agonist Start: 06-23-2025 oxyCODONE (ROXICODONE) immediate release tablet 5 mg Start: 08-10-2022 End: 08-13-2022 take 1 tablet [...] 3 days. for pain. polyethylene glycol 3350 73509 mg powder for oral solution (1 source) Osmotic Laxative Start: 17 g, Oral, DAILY, First dose on Sun06/23/25 at 1700, Until Discontinued, Stir and dissolve one packet of powder (17 g) in any 4 to 8 ounces of beverage (cold, hot or room temperature) then drink, Post-op polyethylene glycol 3350 [id number] mg / potassium chloride 1480 mg / sodium bicarbonate 5720 mg / sodium chloride 31106 mg powder for oral solution (1 source) Osmotic Laxative Start: 2 take 420 g by mouth once polyethylene glycol-electrolytes (NULYTELY) 420 g solution Take 4,000 mLs by mouth once for 1 dose 0 02/16/2022 Active sertraline 50 mg oral tablet (5 sources) Serotonin Reuptake Inhibitor Start: 5 take 1 tablet by mouth once daily Sertraline 50 mg tablet Active 50 MG PO Daily March 04, 2025 12:00am Sertraline HCl ( ZOLOFT PO) Take by mouth Active sulfamethoxazole 800 mg / trimethoprim 160 [...] Drug Class(es) Dates Sig (Normalized) Sig (Original) acetaminophen 325 mg oral tablet (19 sources) Start: 06-23-2025 650 mg, Oral, EVERY 6 HOURS PRN, Starting on Sun06/23/25 at 1642, Until Discontinued, Pain Mild (1-3) OR per patient request for pain score (4-10), Fever, Maximum dose of acetaminophen is 4000 mg from all sources in 24 hours., Post-op Start: 07-22-2024 End: 07-22-2024 1,000 mg, intravenous, at 40 0 mL/hr, Administer over 15 Minutes, Once, On Sun07/22/24 at 0355, For 1 dose Start: 09-07-2022 acetaminophen (TYLENOL) tablet 650 mg Start: 08-10-2022 take 2 tablets by [facility] every six hours as needed for pain [...] Comment on above: Take 2 tablets by mo ut every 6 hours as needed for pain. [...] above: Take 1 tablet by herbert th twice daily with meals. ceFAZolin (ANCEF) 2,000 mg in sterile water 20 mL IV syringe (1 source) Start: End: 2,000 mg, IntraVENous, EVERY 8 HOURS, 2 doses, First dose on Sun06/23/25 at 1830, Last dose on Sun06/24/25 at 0230, Antimicrobial Indications: Surgical Prophylaxis, Administer over 5 mins. Reconstitute 2 g vial with 20 mL Sterile Water. Withdraw entire contents., Post-op ceFAZolin (ANCEF) 2000 mg in dextrose 5 [...] CLEANUP) cyclobenzaprine hydrochloride 10 mg oral tablet (5 sources) Muscle Relaxant Start: 06-23-2025 take 10 mg by mouth three times daily as needed 10 mg, Oral, 3 TIMES DAILY PRN, Starting on Sun06/23/25 at 1159, Until Discontinued, Muscle spasms, Post-op Start: 12-20-2024 End: 12-20-2024 take 1 dose by mouth once 10 mg, Oral, ONCE, 1 dose, O n 12/20/24 at 1645 Start: 12-20-2024 End: 12-30-2024 [...] twice daily as needed for muscle spasm. docusate sodium 50 mg / sennosides, chcf 8.6 mg oral tablet (1 source) Start: 06-23-20 take 1 tablet by mouth twice daily 1 tablet, Oral, 2 TIMES DAILY, First dose on Sun06/23/25 at 2100, Until Discontinued, Post-op ergocalciferol 1.25 mg oral capsule (3 sources) Provitamin D2 Compound Start: 08-10-20 End: 11-17-19 23 take 1 capsule by mouth every week ergocalciferol 50,000 unit capsule (VITAMIN D2, DRISDOL) Indications: low serum vitamin D Take 1 capsule by mouth one time a week for 15 doses. 15 capsule 0 08/10/2022 Active Comment on above: Take 1 capsule by mo [facility] one time a week for 15 doses. famotidine 20 mg oral tablet (2 sources) Histamine-2 Receptor Antagonist Start: 07-22-20 End: 07-22-20 take 20 mg by mouth once 20 mg, oral, Once, On Sun07/22/24 at 0355, For 1 dose Start: 06-07-2022 End: 06-07-2022 famotidine (PEPCID) injectio n 20 mg 2 ml fentaNYL 0.05 mg/ml injection (2 sources) Opioid Agonist Start: 06-23-2025 End: 06-23-2025 50 mcg, IntraVENous, EVERY 5 MIN PRN, 4 doses, Starting on Sun06/23/25 at 1212, Until Sun06/23/25 at 1641, Pain Severe (7-10), If oral and IV narcotics ordered, use oral first and only use IV if oral is ineffective or cannot take oral. Do Not give oral and IV within 1 hour of each other unless specifically ordered., PACU only hydrocortisone 25 mg/ml topical cream (1 source) Corticosteroid Start: 06-13-2022 Hydrocortisone 2.5 % External Cream APPLY SPARINGLY TO AFFECTED AREA(S) 2 TO 3 TIMES DAILY. Quantity: 1 Refills: 2 Ordered: 13-Jun-2022 Mateusz Knutson Start : 13-Jun-2022 Active 1 ml HYDROmorphone hydrochloride 1 mg/ml cartridge (2 sources) Opioid Agonist Start: 06-23-2025 End: 06-23-2025 0.5 mg, IntraVENous, EVERY 5 MIN PRN, 4 doses, Starting on Sun06/23/25 at 1213, Until Sun06/23/25 at 1641, Pain Severe (7-10), may alternate with Fentanyl, If oral and IV narcotics ordered, use oral first and only use IV if oral is ineffective or cannot take oral. Do Not give oral and IV within 1 hour of each other unless specifically ordered., PACU only Start: 06-23-2025 End: 06-23-2025 1 dose, Starting on 06/23 at 1159, Until Sun06/23/25 at 1205, Cynthia Sarmiento: cabinet override ibuprofen 400 mg oral tablet (8 sources) [...] on above: Take 1 capsule by mo [facility] daily at bedtime. ondansetron 4 mg disintegrating [...] CLEANUP) Start: 01-09-2022 take 1 tablet by [facility] three times daily as needed for nausea ondansetron (ZOFRAN-ODT) 4 MG disintegrating tablet Indications: Nephrolithiasis Take 1 tablet by mouth 3 times daily as needed for Nausea or Vomiting 21 tablet 0 01/09/2022 Active predniSONE (3 sources) Start: 12-20-2024 End: 12-20-2024 take 1 dose by mouth once 50 mg, Oral, ONCE, 1 dose, On 12/20/24 at 1645 Start: 06-13-2022 take 9 tablets by [facility] once at mealtime predniSONE 10 MG Oral Tablet 4x3 days, 3x3 days, 2x3 days, 1x3 days Quantity: 30 Refills: 0 Ordered: 13-Jun-2022 Mateusz Knutson Start : 13-Jun-2022 Active Take medication with food. Start: 06-07-2022 End: 06-12-2022 take 6 tablets by mouth in the morning predniSONE (DELTASONE) 10 MG tablet Take 6 tablets by mouth in the morning for 5 doses. 30 tablet 0 06/07/2022 06/12/2022 Active 5 ml sodium chloride 9 mg/ml injection (11 sources) Start: 06-23-2025 5-40 mL, Intra VENous, EVERY 12 HOURS SCHEDULED (2 times per day), First dose on Sun06/23/25 at 2100, Until Discontinued, For Line Patency: Peripheral IV = 5 mL; Midline or Central Line = 10 mL/lumen. If following IV push medication, administer flush at same rate as the IV push. Flush volume is determined by type of infusion therapy being given. For non-viscous solutions use: Peripheral IV = 5 mL Midline or Central Line = 10 mL/lumen For viscous solutions (i.e. blood components, parenteral nutrition, contrast media, or after obtaining blood sample) use: Peripheral IV = 10 mL Midline or Central Line = 20 mL/lumen, Post-op Start: 06-23-2025 IntraVENous, a t 125 mL/hr, CONTINUOUS, Starting on Sun06/23/25 at 1700, Post-op Start: 06-23-2025 Start: 06-23-2025 End: 06-23-2025 IntraVENous, at 5-250 mL/hr, PRN, if patient receiving piggyback infusions and maintenance fluids are not ordered, Starting on Sun06/23/25 at 0804, For piggyback infusion, administer at same rate as piggyback for a total of 25 mL. Enter 25 mL into dose field and piggyback rate into rate field of order. If piggyback is infusing at a rate less than 100 mL/hr, enter 25 mL into dose field and 100 mL/hr into rate field of order., Pre-op (day of surgery) Start: 06-16-2022 0.9 % sodium c hloride [...] at bedtime 1 each 0 02/11/2022 Active 1 ml triamcinolone acetonide 40 mg/ml prefilled syringe (1 source) Corticosteroid Start: 06-13-2022 Triamcinolone Acetonide 40 MG/ML Injection Suspension INJECT 1.5 ML Intramuscular Quantity: 0 Refills: 0 Ordered: 13-Jun-2022 AlvaresMateusz Jiang Start : 13-Jun-2022 Complete Problems Active Problems Problem Classification Problem Date Documented Da te Episodic/Chronic Allergic reactions (2 sources) Urticaria; Translations: [Urticaria, unspecified] Episodic Anxiety disorders (4 sources) Anxiety; Translations: [Anxiety disorder, unspecified] Onset: 11-14-2024 03-04-2025 Chronic Calculus of urinary tract (1 source) Kidney stone; Translations: [Calculus of kidney] Episodic Chronic obstructive pulmonary disease and bronchiectasis (14 sources) Chronic obstructive lung disease; Translations: [Chronic obstructive pulmonary disease, unspecified] Onset: 11-22-2021 11-22-2021 Chronic Disorders of lipid metabolism (14 sources) Hyperlipidemia; Translations: [Hyperlipidemia, unspecified] Onset: 11-22-2021 11-22-2021 Chronic Essential hypertension (14 sources) Hypertensive disorder; Translations: [Essential (primary) hypertension] Onset: 11-22-2021 11-22-2021 Chronic Fracture of lower limb (1 source) Closed fracture of talus; Translations: [Nondisplaced avulsion fracture (chip fracture) of left talus, initial encounter for closed fracture] Episodic Gastritis and duodenitis (12 sources) Gastritis; Translations: [Gastritis, unspecified, without bleeding] Episodic Gastrointestinal hemorrhage (12 sources) Melena; Translations: [Melena] Episodic Genitourinary symptoms and ill-defined conditions (2 sources) Decreased urine output; Translations: [Anuria and oliguria] 03-04-2025 Episodic Headache; including migraine (2 sources) Headache; including migraine; Translations: [Headache, unspecified] Onset: 07-21-2024 Mood disorders (18 sources) Bipolar disorder; Translations: [Bipolar disorder, unspecified] [...] Spondylosis; intervertebral disc disorders; other back problems (20 sources) Post-surgery back pain; Translations: [Dorsalgia, unspecified] Onset: 05-12-2021 05-12-2021 Episodic Substance-related disorders (6 sources) Opioid dependence, uncomplicated; Translations: [Drug addict ] Onset: 11-03-2024 Chronic Superficial injury; contusion (2 sources) Abrasion of left knee; Translations: [Abrasion, left knee, initial encounter] Onset: 09-18-2024 09-18-2024 Episodic Unclassified (1 source) Wound Check Onset: 11-11-2021 Unclassified (1 source) Other intervertebral disc degeneration, lumbar region without mention of lumbar back pain or lower extremity pain; Translations: [Other intervertebral disc degeneration, lumbar region without mention of lumbar back pain or lower extremity pain] Onset: 06-23-2025 Past or Other Problems Problem Classification Problem [...] Onset: 07-21-2024 07-22-2024 Episodic Other gastrointestinal disorders (10 sources) Constipation; Translations: [Constipation, unspecified] Onset: 06-16-2022 [...] stimulant use, unspecified, uncomplicated] Onset: 11-14-2024 Episodic Unclassified (1 source) Other intervertebral disc degeneration, lumbar region without mention of lumbar back pain or lower extremity pain; Translations: [Other intervertebral disc degeneration, lumbar region without mention of lumbar back pain or lower extremity pain] Onset: 06-23-2025 Results Test Name Value Interpretation Reference Range Facility ANION GAPon 06-27-2025 Anion gap [Moles/Vol] 12.0 mmol/L Normal 8.0-16.0 [facility] Comment on above: ANION GAP = Sodium - (Chloride + CO2) Performed at [facility] [address] [place] [address] Result Comment: ANIO N GAP = Sodium -(Chloride + CO2) Performed By: #### A LA GR BMP, #### [facility] [address] [place] [address] BASIC METABOL PANELon 2024 Calcium [Mass/Vol] 9.3 mg/dL Normal 8.5-10.5 [facility] Comment on above: Performed at [facility] [address] [place] [address] Performed By: #### A LA GR BMP, #### [facility] [address] [place] [address] CO2 [Moles/Vol] 24 mmol/L Normal 22-29 [facility] Comment on above: Performed By: #### A LA GR BMP, #### [facility] [address] [place] [address] Creatinine [Mass/Vol] 0.7 mg/dL Normal 0.5-0.9 [facility] Comment on above: Performed By: #### A LA GR BMP, #### [facility] [address] [place] [address] Glucose [Mass/Vol] 105 mg/dL Normal 74-109 [facility] Comment on above: Performed By: #### A LA GR BMP, #### [facility] [address] [place] [address] Urea nitrogen [Mass/Vol] 12 mg/dL Normal 8-[address] [facility] Comment on above: Performed By: #### A LA GR BMP, #### [facility] [address] [place] [address] Chloride [Moles/Vol] 102 mmol/L Normal 98-111 [facility] Comment on above: Performed By: #### A LA GR BMP, #### [facility] [address] [place] [address] Potassium [Moles/Vol] 3.8 mmol/L Normal 3.5-5.2 [facility] Comment on above: Performed By: #### A LA GR BMP, #### [facility] [address] [place] [id number] Sodium [Moles/Vol] 138 mmol/L Normal 135-145 [facility] Comment on above: Performed By: #### A LA GR BMP, #### [facility] [address] [address] Basic metabolic 2000 panelon 06-27-2025 Chloride [Moles/Vol] 102 mmol/L 98 - 111 meq/L [facility] Potassium [Moles/Vol] 3.8 mmol/L 3.5 - 5.2 meq/L [facility] Sodium [Moles/Vol] 138 mmol/L 135 - 145 meq/L [facility] GFR, ESTIMATEDon 06-27-2025 GFR/1.73 sq M.predicted MDRD (S/P/Bld) [Vol rate/Area] mL/min/{1.73_m2} Normal >60 [facility] [employer] Comment on above: Pediatric calculator link [email or web address]://www.kidney.org/professionals/kdoqi/gfr_[email or web address] Effective Aug 07, 2022 These results are not intended for use in patients <18 years of age. eGFR results are calculated without a race factor using the 2020 CKD-EPI equation. Careful clinical correlation is recommended, particularly when comparing to results calculated using previous equations. The CKD-EPI equation is less accurate in patients with extremes of muscle mass, extra-renal metabolism of creatinine, excessive creatine ingestion, or following therapy that affects renal tubular secretion. Performed at [facility] [address] [place] [address] Result Comment: Sarah oneill calculator link [email or web address]://www.[email or web address].org/professionals/kdoqi/gfr_[email or web address] Effective Aug 07, 2022 These results are not intended for use in patients <18 years of age. eGFR results are calculated without a race factor using the 2020 CKD-EPI equation. Careful clinical correlation is recommended, particularly when comparing to results calculated using previous equations. The CKD-EPI equation is less accurate in patients with extremes of muscle mass, extra-renal metabolism of creatinine, excessive creatine ingestion, or following therapy that affects renal tubular secretion. Performed By: #### A LA GR BMP, #### [facility] [address] [place] [address] HGB,HCTon 06-27-2025 Hematocrit (Bld) [Volume fraction] 39.8 % Normal 37.0-47.0 [facility] [employer] Comment on above: Performed at [facility] [place] [address] Performed By: #### A LA GR BMP, #### [facility] [address] [place] [address] Hemoglobin (Bld) [Mass/Vol] 12.8 g/dL Normal 12.0-16.0 [facility] [employer] Comment on above: Performed By: #### A LA GR, DONNIE, #### [facility] [address] [place] [address] Hemoglobin and Hematocrit pa james (Bld)on 06-27-2025 [facility] No Panel Informationon 06-[address] [facility] [employer] [facility] ANION GAPon 06-26-2025 Anion gap [Moles/Vol] 10.0 mmol/L Normal 8.0-16.[address] [facility] Comment on above: ANION GAP = Sodium - (Chloride + CO2) Performed at [facility] [address] [place] [address] Result Comment: ANIO N GAP = Sodium -(Chloride + CO2) Performed By: #### T OXPN #### [facility] [address] [place] [address] BASIC METABOL PANELon 2024 Calcium [Mass/Vol] 9.0 mg/dL Normal 8.5-10.5 [facility] Comment on above: Performed at [facility] [address] [place] [id number] Performed By: #### T OXPN #### [address] [address] CO2 [Moles/Vol] 26 mmol/L Normal 22-29 [facility] Comment on above: Performed By: #### T OXPN #### [facility] [employer] [facility] [address] [place] [address] Creatinine [Mass/Vol] 0.8 mg/dL Normal 0.5-0.9 [facility] Comment on above: Performed By: #### T OXPN #### [address] [address] Glucose [Mass/Vol] 101 mg/dL Normal 74-109 [facility] Comment on above: Performed By: #### T OXPN #### [facility] [employer] [address] [address] Urea nitrogen [Mass/Vol] 12 mg/dL Normal 8-23 [facility] Comment on above: Performed By: #### T OXPN #### [facility] [employer] [address] [address] Chloride [Moles/Vol] 105 mmol/L Normal 98-111 [facility] Comment on above: Performed By: #### T OXPN #### [facility] [employer] [address] [place] [address] Potassium [Moles/Vol] 3.9 mmol/L Normal 3.5-5.2 [facility] Comment on above: Performed By: #### T OXPN #### [facility] [employer] [facility] [address] [place] [address] Sodium [Moles/Vol] 141 mmol/L Normal 135-145 [facility] Comment on above: Performed By: #### T OXPN #### [facility] [facility] [address] [place] [address] Basic metabolic 2000 panelon 06-26-2025 Chloride [Moles/Vol] 105 mmol/L 98 - 111 meq/L [facility] Potassium [Moles/Vol] 3.9 mmol/L 3.5 - 5.2 meq/L [facility] Sodium [Moles/Vol] 141 mmol/L 135 - 145 meq/L [facility] GFR, ESTIMATEDon 06-26-2025 GFR/1.73 sq M.predicted MDRD (S/P/Bld) [Vol rate/Area] mL/min/{1.73_m2} Normal >[address] [facility] Comment on above: Pediatric calculator link https://www.kidney.org/professionals/kdoqi/gfr_[email or web address] Effective Aug 07, 2022 These results are not intended for use in patients <18 years of age. eGFR results are calculated without a race factor using the 2020 CKD-EPI equation. Careful clinical correlation is recommended, particularly when comparing to results calculated using previous equations. The CKD-EPI equation is less accurate in patients with extremes of muscle mass, extra-renal metabolism of creatinine, excessive creatine ingestion, or following therapy that affects renal tubular secretion. Performed at [facility] [place] [address] Result Comment: Pedi atric calculator link [email or web address]://www.kidney.org/professionals/kdoqi/gfr_[email or web address] Effective Aug 07, 2022 These results are not intended for use in patients <18 years of age. eGFR results are calculated without a race factor using the 2020 CKD-EPI equation. Careful clinical correlation is recommended, particularly when comparing to results calculated using previous equations. The CKD-EPI equation is less accurate in patients with extremes of muscle mass, extra-renal metabolism of creatinine, excessive creatine ingestion, or following therapy that affects renal tubular secretion. Performed By: #### T OXPN #### [employer] [address] [place] [address] HGB,HCTon 06-26-2025 Hematocrit (Bld) [Volume fraction] 38.4 % Normal 37.0-47.[address] [facility] The Word [facility] Comment on above: Performed at [facility] [address] [place] [address] Performed By: #### T OXPN #### [employer] [address] [place] [address] Hemoglobin (Bld) [Mass/Vol] 12.4 g/dL Normal 12.0-16.0 [facility] Comment on above: Performed By: #### T OXPN #### [employer] [address] [place] [address] Hemoglobin and Hematocrit pa james (Bld)on 06-26-2025 [facility] No Panel Informationon 06-26 [facility] ANION GAPon 06-25-2025 Anion gap [Moles/Vol] 9.0 mmol/L Normal 8.0-16.0 [facility] Comment on above: ANION GAP = Sodium - (Chloride + CO2) Performed at [facility] [address] [place] [address] Result Comment: ANIO N GAP = Sodium -(Chloride + CO2) Performed By: #### H H, BMP, ANION, EGFR1 #### [facility] [address] [place] [address] BASIC METABOL PANELon 2024 Calcium [Mass/Vol] 8.4 mg/dL Low 8.5-10.5 [facility] Comment on above: Performed at [facility] [employer] [facility] [address] [place] [address] Performed By: #### H H, BMP, ANION, EGFR1 #### [employer] [address] [place] [address] CO2 [Moles/Vol] 26 mmol/L Normal 22-29 [facility] Comment on above: Performed By: #### H H, BMP, ANION, EGFR1 #### [employer] [address] [place] [address] Creatinine [Mass/Vol] 0.7 mg/dL Normal 0.5-0.9 [facility] Comment on above: Performed By: #### H H, BMP, ANION, EGFR1 #### [employer] [address] [place] [address] Glucose [Mass/Vol] 108 mg/dL Normal 74-109 [facility] Comment on above: Performed By: #### H H, BMP, ANION, EGFR1 #### [employer] [address] [place] [address] Urea nitrogen [Mass/Vol] 10 mg/dL Normal 8-23 [facility] Comment on above: Performed By: #### H H, BMP, ANION, EGFR1 #### [facility] [address] [place] [address] Chloride [Moles/Vol] 105 mmol/L Normal 98-111 [facility] Comment on above: Performed By: #### H H, BMP, ANION, EGFR1 #### [facility] [address] [place] [address] Potassium [Moles/Vol] 4.0 mmol/L Normal 3.5-5.2 [facility] Comment on above: Performed By: #### H H, BMP, ANION, EGFR1 #### [facility] [address] [place] [address] Sodium [Moles/Vol] 140 mmol/L Normal 135-145 [facility] Comment on above: Performed By: #### H H, BMP, ANION, EGFR1 #### [employer] [facility] [employer] [address] [place] [address] Basic metabolic 2000 panelon 06-25-2025 Chloride [Moles/Vol] 105 mmol/L 98 - 111 meq/L [facility] [employer] Interpretation and review of laboratory results Abnormal [facility] [employer] Potassium [Moles/Vol] 4.0 mmol/L 3.5 - 5.2 meq/L [facility] Sodium [Moles/Vol] 140 mmol/L 135 - 145 meq/L [facility] [employer] GFR, ESTIMATEDon 06-25-2025 GFR/1.73 sq M.predicted MDRD (S/P/Bld) [Vol rate/Area] mL/min/{1.73_m2} Normal >60 [facility] [employer] Comment on above: Pediatric calculator link https://www.kidney.org/professionals/kdoqi/gfr_calculatorped Effective Aug 07, 2022 These results are not intended for use in patients <18 years of age. eGFR results are calculated without a race factor using the 2020 CKD-EPI equation. Careful clinical correlation is recommended, particularly when comparing to results calculated using previous equations. The CKD-EPI equation is less accurate in patients with extremes of muscle mass, extra-renal metabolism of creatinine, excessive creatine ingestion, or following therapy that affects renal tubular secretion. Performed [place] [address] Result Comment: Sarah atric calculator link https://www.kidney.org/professionals/kdoqi/gfr_calculatorped Effective Aug 07, 2022 These results are not intended for use in patients <18 years of age. eGFR results are calculated without a race factor using the 2020 CKD-EPI equation. Careful clinical correlation is recommended, particularly when comparing to results calculated using previous equations. The CKD-EPI equation is less accurate in patients with extremes of muscle mass, extra-renal metabolism of creatinine, excessive creatine ingestion, or following therapy that affects renal tubular secretion. Performed By: #### H H, BMP, ANION, EGFR1 #### [place] [address] HGB,HCTon 06-25-2025 Hematocrit (Bld) [Volume fraction] 34.1 % Low 37.0-47.0 [facility] Comment on above: [place] [address] Performed By: #### H H, BMP, ANION, EGFR1 #### [facility] [address] [place] [address] Hemoglobin (Bld) [Mass/Vol] 11.2 g/dL Low 12.0-16.0 [facility] Comment on above: Performed By: #### H H, BMP, ANION, EGFR1 #### [place] [address] Hemoglobin and Hematocrit pa james (Bld)on 06-25-2025 Interpretation and review of laboratory results Abnormal [facility] [employer] No Panel Informationon 06-25 [facility] ANION GAPon 06-24-2025 Anion gap [Moles/Vol] 8.0 mmol/L Normal 8.0-16.[address] [facility] Center[facility] The Word [facility] Comment on above: ANION GAP = Sodium - (Chloride + CO2) Performed at [facility] [address] [place] [address] Result Comment: ANIO N GAP = Sodium -(Chloride + CO2) Performed By: #### T OXPN #### [facility] [address] [place] [address] BASIC METABOL PANELon 08-20- 2025 Calcium [Mass/Vol] 8.1 mg/dL Low 8.5-10.5 [facility] Comment on above: Performed at [facility] [address] [place] [address] Performed By: #### T OXPN #### [facility] [address] [place] [address] CO2 [Moles/Vol] 22 mmol/L Normal 22-29 [facility] Comment on above: Performed By: #### T OXPN #### [facility] [address] [place] [address] Creatinine [Mass/Vol] 0.7 mg/dL Normal 0.5-0.9 [facility] Comment on above: Performed By: #### T OXPN #### [facility] [address] [place] [address] Glucose [Mass/Vol] 104 mg/dL Normal 74-109 [facility] Comment on above: Performed By: #### T OXPN #### [facility] [employer] [facility] [address] [place] [address] Urea nitrogen [Mass/Vol] 10 mg/dL Normal 8-23 [facility] Comment on above: Performed By: #### T OXPN #### [facility] [employer] [address] [address] Chloride [Moles/Vol] 108 mmol/L Normal 98-111 [facility] Comment on above: Performed By: #### T OXPN #### [facility] [employer] [address] [place] [address] Potassium [Moles/Vol] 4.0 mmol/L Normal 3.5-5.2 [facility] Comment on above: Performed By: #### T OXPN #### [facility] [address] [place] [address] Sodium [Moles/Vol] 138 mmol/L Normal 135-145 [facility] Comment on above: Performed By: #### T OXPN #### [facility] [facility] [address] [place] [address] Basic metabolic 2000 panelon 06-24-2025 Chloride [Moles/Vol] 108 mmol/L 98 - 111 meq/L [facility] Interpretation and review of laboratory results Abnormal [facility] Potassium [Moles/Vol] 4.0 mmol/L 3.5 - 5.2 meq/L [facility] Sodium [Moles/Vol] 138 mmol/L 135 - 145 meq/L [facility] GFR, ESTIMATEDon 06-24-2025 GFR/1.73 sq M.predicted MDRD (S/P/Bld) [Vol rate/Area] mL/min/{1.73_m2} Normal >[address] [facility] Comment on above: Pediatric calculator link https://www.kidney.org/professionals/kdoqi/gfr_calculatorped Effective Aug 07, 2022 These results are not intended for use in patients <18 years of age. eGFR results are calculated without a race factor using the 2020 CKD-EPI equation. Careful clinical correlation is recommended, particularly when comparing to results calculated using previous equations. The CKD-EPI equation is less accurate in patients with extremes of muscle mass, extra-renal metabolism of creatinine, excessive creatine ingestion, or following therapy that affects renal tubular secretion. Performed at [facility] [place] [place] [address] Result Comment: Pedi atric calculator link https://www.kidney.org/professionals/kdoqi/gfr_calculatorped Effective Aug 07, 2022 These results are not intended for use in patients <18 years of age. eGFR results are calculated without a race factor using the 2020 CKD-EPI equation. Careful clinical correlation is recommended, particularly when comparing to results calculated using previous equations. The CKD-EPI equation is less accurate in patients with extremes of muscle mass, extra-renal metabolism of creatinine, excessive creatine ingestion, or following therapy that affects renal tubular secretion. Performed By: #### T OXPN #### [employer] [address] [place] [address] HGB,HCTon 06-24-2025 Hematocrit (Bld) [Volume fraction] 35.0 % Low 37.0-47.[address] [facility] CenterJ[facility] The Word [facility] Comment on above: Performed at [facility] [address] [place] [address] Performed By: #### T OXPN #### [employer] [address] [place] [address] Hemoglobin (Bld) [Mass/Vol] 11.2 g/dL Low 12.0-16.0 [facility] Comment on above: Performed By: #### T OXPN #### [facility] [address] [place], [place] [id number] Hemoglobin and Hematocrit pa james (Bld)on 06-24-2025 Interpretation and review of laboratory results Abnormal [facility] No Panel Informationon 06-24 [facility] DRUG ABUSE SCREENon 06-23-20 BUPRENORPHINE Negative Normal NEGATIVE [facility] Comment on above: Performed By: #### T OXPN #### [facility] [address] [place] [address] Cannabinoids Screen Ql (U) Negative Normal NEGATIVE [facility] Comment on above: Performed By: #### T OXPN #### [facility] [place] [address] Fentanyl Negative Normal NEGATIVE [facility] Comment on above: A Negative result for a drug abuse screen test indicates that the drug concentration is below the following cutoffs: Amphetamine/Methamphetamine 1000 ng/ml Barbiturate 200 ng/ml Benzodiazepine 200 ng/ml Cannabinoids 50 ng/ml Cocaine Metabolite 300 ng/ml Opiates 300 ng/ml Oxycodone 100 ng/ml Phencyclidine 25 ng/ml Buprenorphine 5 ng/ml Fentanyl 5 ng/ml A Positive result for a drug abuse screen test should be considered presumptive positive until/unless confirmed by another method. (Additional request) Quantitative values from a reference laboratory are available upon additional request. These results are for medical use only. Performed at [facility] [place] [address] Result Comment: A N egative result for a drug abuse screen test indicates that the drug concentration is below the following cutoffs: Amphetamine/Methamphetamine 1000 ng/ml Barbiturate 200 ng/ml Benzodiazepine 200 ng/ml Cannabinoids 50 ng/ml Cocaine Metabolite 300 ng/ml Opiates 300 ng/ml Oxycodone 100 ng/ml Phencyclidine 25 ng/ml Buprenorphine 5 ng/ml Fentanyl 5 ng/ml A Positive result for a drug abuse screen test should be considered presumptive positive until/unless confirmed by another method. (Additional request) Quantitative values from a reference laboratory are available upon additional request. These results are for medical use only. Performed By: #### T OXPN #### [facility] [address] [place] [address] Opiates Ql (U) Negative Normal NEGATIVE [facility] Comment on above: Performed By: #### T OXPN #### [facility] [address] [place] [address] Oxycodone Negative Normal NEGATIVE [facility] Comment on above: Performed By: #### T OXPN #### [facility] [address] [place] [address] AMPHETAMINE/METHAM PH Negative Normal NEGATIVE [facility] Comment on above: Performed By: #### T OXPN #### [facility] [address] [place] [address] BARBITURATE Negative Normal NEGATIVE [facility] Comment on above: Performed By: #### T OXPN #### [facility] [address] [place] [address] Benzodiazepines Ql (U) Negative Normal NEGATIVE [facility] Comment on above: Performed By: #### T OXPN #### [facility] [address] [place] [address] COCAINE METABOLITE Negative Normal NEGATIVE [facility] Comment on above: Performed By: #### T OXPN #### [facility] [address] [place] [address] Phencyclidine Ql (U) Negative Normal NEGATIVE [facility] Comment on above: Performed By: #### T OXPN #### [facility] [address] [place] [address] GRIFOLS GEL TYPE AND SCREENo n 06-23-2025 ABO and Rh group Nom (Bld) A Normal [facility] Comment on above: Performed By: #### G GTS #### [facility] [address] [place] [address] GEL INDIRECT KRYSTLE Negative Normal [facility] Comment on above: Performed By: #### G GTS #### [facility] [address] [place] [address] GEL RH GRIFOLS Positive Normal [facility] Comment on above: Performed By: #### G GTS #### [facility] [address] [place] [address] TYPE AND SCREENon 06-23-2025 ABO group Nom (Bld) A [employer] [employer] Indirect antiglobulin test.IgG specific reagent Ql Negative [facility] [employer] Comment on above: Performed at [facility] [address] [place] [address] Rh Nom (Bld) Positive [facility] Urine Drug Screenon 06-23-20 25 Amphetamines Screen Ql (U) Negative NEGATIVE [facility] Barbiturates Screen Ql (U) Negative NEGATIVE [facility] Benzodiazepines Ql (U) Negative NEGATIVE [facility] Benzoylecgonine Screen Ql (U) Negative NEGATIVE [facility] Buprenorphine Urine Negative NEGATIVE [facility] Opiates Screen Ql (U) Negative NEGATIVE [facility] Phencyclidine Ql (U) Negative NEGATIVE [facility] [employer] [facility] XR Lumbar spine Single viewo n 06-23-2025 Intraoperative appearance of the lumbar spine This report has been created using voice recognition software. It may contain minor errors which are inherent in voice recognition technology. Electronically signed by Dr Marko Xavier [facility] Marko Xavier MD - 06/23/2025 PROCEDURE: XR LUMBAR SPINE 1 VW CLINICAL INFORMATION: 39-year-old female undergoing lumbar spine surgery. COMPARISON: No prior study. TECHNIQUE: A crossfire lateral film of the lumbar spine was obtained FINDINGS: Transpedicular screws and fusion rods extend from L5-S1. IMPRESSION: Intraoperative appearance of the lumbar spine This report has been created using voice recognition software. It may contain minor errors which are inherent in voice recognition technology. Electronically signed by Dr Marko Xavier [facility] [employer] Radiology Study observation (narrative) [employer] XR Lumbar spine Single viewO rdered By: Marko Xavier on 06-23-2025 [employer] Work Phone: Urine Cultureon 03-04-2025 Bacteria identified Cx Nom (U) >100,000 colonies/ml mixed bacterial skin contaminants 2 Days PERFORMED BY: [place] [address] [place] [address] PATHOLOGIST GEOLOGICAL ENGINEERING TEACHER BETY FISCHER M.D. [place] [facility] Comment on above: Performed By: #### C UU #### [facility] [address] [place] [address] [facility] Basic Metabolic Panelon 01-03 Est, [place] Rate - PINF [facility] Comment on above: These results are [...] Interpretation and review of laboratory results Abnormal [facility] Urea nitrogen/Creatinin e [Mass ratio] 14 mg/mg - [facility] Basic Metabolic Profon 01-13 Anion gap [Moles/Vol] 12 mmol/L Normal -16 [facility] Comment on above: Performed By: #### B DEVYN NEAL CDP #### [facility] [address] [place] [address] [place] [address] Commercial Insulator: Tray Stapleton MD BUN/CRE Ratio 14 Normal - [facility] Comment on above: Performed By: #### B DEVYN NEAL, CDP #### [facility] [address] [place] [address] [place] [address] Commercial Insulator: Tray Stapleton MD Calcium [Mass/Vol] 8.6 mg/dL Normal 8.6-10.4 [facility] Comment on above: Performed By: #### B DEVYN NEAL CDP #### [address] [place] [address] Commercial Insulator: Tray Stapleton MD Chloride [Moles/Vol] 105 mmol/L Normal 98-107 [facility] Comment on above: Performed By: #### B DEVYN NEAL, CDP #### [facility] [address] [place] [address] Commercial Insulator: Tray Stapleton MD CO2 [Moles/Vol] 22 mmol/L Normal 20-31 [facility] Comment on above: Performed By: #### B DEVYN NEAL CDP #### [facility] [address] [place] [address] Commercial Insulator: Tray Stapleton MD Creatinine [Mass/Vol] 0.8 mg/dL Normal 0.50-0.90 [facility] Comment on above: Performed By: #### B DEVYN NEAL CDP #### [address] [place] [address] Commercial Insulator: Tray Stapleton MD GFR/1.73 sq M.predicted among non-blacks MDRD (S/P/Bld) [Vol rate/Area] mL/min/{1.73_m2} Normal >60 [facility] Comment on above: Result Comment: These [...] tubular secretion. Performed By: #### B DEVYN NEAL CDP #### [address] [place] [address] Commercial Insulator: Tray Stapleton MD Glucose [Mass/Vol] 118 mg/dL High 74-99 [facility] Comment on above: Performed By: #### B DEVYN NEAL CDP #### [address] [place] [address] Commercial Insulator: Tray Stapleton MD Potassium [Moles/Vol] 4.2 mmol/L Normal 3.7-5.3 [facility] Comment on above: Performed By: #### B DEVYN NEAL CDP #### [facility] [address] [place] [address] Commercial Insulator: Tray Stapleton MD Sodium [Moles/Vol] 139 mmol/L Normal 136-145 [facility] Comment on above: Performed By: #### B DEVYN NEAL CDP #### [facility] [address] [place] [address] Commercial Insulator: Tray Stapleton MD Urea nitrogen [Mass/Vol] 11 mg/dL Normal 6-20 [facility] Comment on above: Performed By: #### B DEVYN NEAL CDP #### [facility] [address] [place] [address] [place] [address] Commercial Insulator: Tray Stapleton MD CBC with Auto Differentialon 01-13-2025 Basophils (Bld) [#/Vol] 0.03 10*3/uL [facility] Basophils/100 WBC (Bld) 0 % 0 - 2 % [facility] Eosinophils (Bld) [#/Vol] 0.12 10*3/uL [facility] Eosinophils/100 WBC (Bld) 2 % 1 - 4 % [facility] Erythrocyte distribution width (RBC) [Ratio] 13.8 % 11.8 - 14.4 % [facility] Hematocrit (Bld) [Volume fraction] 38 % 36.3 - 47.1 % [facility] Hemoglobin (Bld) [Mass/Vol] 12.9 g/dL 11.9 - 15.1 g/dL [facility] Immature granulocytes (Bld) [#/Vol] [facility] Immature granulocytes/100 WBC (Bld) 0 % 0 [facility] Lymphocytes/100 WBC (Bld) 35 % 24 - 43 % [facility] Lymphocytes/100 WBC (Bld) 2.57 % [facility] MCH (RBC) [Entitic mass] 31.2 pg 25.2 - 33.5 pg [facility] MCHC (RBC) [Mass/Vol] 33.9 g/dL 28.4 - 34.8 g/dL [facility] MCV (RBC) [Entitic vol] 91.8 fL 82.6 - 102.9 fL [facility] Monocytes/100 WBC (Bld) 9 % 3 - 12 % [facility] Monocytes/100 WBC (Bld) 0.67 % [facility] Neutrophils/100 WBC (Bld) 54 % 36 - 65 % [facility] Nucleated RBC/100 WBC (Bld) [Ratio] 0 % 0.0 per 100 WBC [facility] Platelet mean volume (Bld) [Entitic vol] 8.5 fL 8.1 - 13.5 fL [facility] Platelets (Bld) [#/Vol] 440 10*3/uL [facility] RBC (Bld) [#/Vol] 4.14 10*6/uL 3.95 - 5.1 1 m/uL [facility] Segmented neutrophils/100 WBC (Bld) 3.99 % [facility] WBC other (Bld) [#/Vol] 7.4 [facility] CBC with Diffon 01-13-2025 Abs. Basophil 0.03 k/uL Normal 0.00-0.20 [facility] Comment on above: Performed By: #### B DEVYN NEAL CDP #### [facility] [address] [place] [address] [address] [place], [place] [id number] Commercial Insulator: Tray Stapleton MD Abs.Imm.Granulocyt e <0.03 Normal 0.00-0.30 [facility] Comment on above: Performed By: #### B DEVYN NEAL CDP #### [facility] [address] [place] [address] Commercial Insulator: Tray Stapleton MD Abs.Neutrophil (Seg) 3.99 k/uL Normal 1.50-8.10 [facility] Comment on above: Performed By: #### B DEVYN NEAL CDP #### [facility] [address] [place], [place] [id number] Commercial Insulator: Tray Stapleton MD Basophils/100 WBC (Bld) 0 % Normal 0-2 [facility] Comment on above: Performed By: #### B DEVYN NEAL, JOHANNA #### [facility] [address] [place] [address] Dr[place], [place] [id number] Commercial Insulator: Tray Stapleton MD Eosinophils (Bld) [#/Vol] 0.12 10*3/uL Normal 0.00-0.44 [facility] Comment on above: Performed By: #### B DEVYN NEAL, CDP #### [address] [place], [facility] [address] Commercial Ins[employer]: Tray Stapleton MD Eosinophils/100 WBC (Bld) 2 % Normal 1-4 [facility] Comment on above: Performed By: #### B DEVYN NEAL, CDP #### [address] [place], [facility] [address] Commercial Insulator: Tray Stapleton MD Erythrocyte distribution width (RBC) [Ratio] 13.8 % Normal 11.8-14.4 [facility] Comment on above: Performed By: #### B DEVYN NEAL, CDP #### [address] [place], [facility] [address] Commercial Insulator: Tray Stapleton MD Hematocrit (Bld) [Volume fraction] 38.0 % Normal 36.3-47.1 [facility] Comment on above: Performed By: #### B DEVYN NEAL, CDP #### [address] [place], [facility] [address] Commercial Insulator: Tray Stapleton MD Hemoglobin (Bld) [Mass/Vol] 12.9 g/dL Normal 11.9-15.1 [facility] Comment on above: Performed By: #### B DEVYN NEAL, CDP #### [address] [place], [facility] [address] Commercial Insulator: Tray Stapleton MD Immature granulocytes/100 WBC (Bld) 0 % Normal 0 [facility] Comment on above: Performed By: #### B DEVYN NEAL, CDP #### [facility] [address] [place] [address] Commercial Insulator: Tray Stapleton MD Lymphocytes (Bld) [#/Vol] 2.57 10*3/uL Normal 1.10-3.70 [facility] Comment on above: Performed By: #### B DEVYN NEAL, CDP #### [facility] [address] [place] [address] Commercial Insulator: Tray Stapleton MD Lymphocytes/100 WBC (Bld) 35 % Normal 24-43 [facility] Comment on above: Performed By: #### B DEVYN NEAL, CDP #### [facility] [address] [place] [address] Commercial Insulator: Tray Stapleton MD MCH (RBC) [Entitic mass] 31.2 pg Normal 25.2-33.5 [facility] Comment on above: Performed By: #### B DEVYN NEAL, CDP #### [facility] [address] [place] [address] Commercial Insulator: Tray Stapleton MD MCHC (RBC) [Mass/Vol] 33.9 g/dL Normal 28.4-34.8 [facility] Comment on above: Performed By: #### B DEVYN NEAL, CDP #### [facility] [address] [place] [address] Commercial Insulator: Tray Stapleton MD MCV (RBC) [Entitic vol] 91.8 fL Normal 82.6-102.9 [facility] Comment on above: Performed By: #### B DEVYN NEAL, CDP #### [facility] [address] [place] [address] Commercial Insulator: Tray Stapleton MD Monocytes (Bld) [#/Vol] 0.67 10*3/uL Normal 0.10-1.20 [facility] Comment on above: Performed By: #### B DEVYN NEAL, CDP #### [facility] [address] [place], [place] [id number] Commercial Insulator: Tray Stapleton MD Monocytes/100 WBC (Bld) 9 % Normal 3-12 [facility] Comment on above: Performed By: #### B DEVYN NEAL, CDP #### [facility] [address] [place] [address] Commercial Insulator: Tray Stapleton MD Neutrophil (Seg) 54 % Normal 36-65 [facility] Comment on above: Performed By: #### B DEVYN NEAL, CDP #### [address] [place], [place] [phone] Commercial Insulator: Tray Stapleton MD NRBC Automated 0.0 per 100 WBC Normal 0.0 [facility] Comment on above: Performed By: #### B DEVYN NEAL, CDP #### [address] [place], [place] [phone] Commercial Insulator: Tray Stapleton MD Platelet mean volume (Bld) [Entitic vol] 8.5 fL Normal 8.1-13.5 [facility] Comment on above: Performed By: #### B DEVYN NEAL, CDP #### [facility] [address] [place] [address] [place] [address] Commercial Insulator: Tary Stapleton MD Platelets (Bld) [#/Vol] 440 10*3/uL Normal 138-453 [facility] Comment on above: Performed By: #### B DEVYN NEAL, CDP #### [address] [place], [place] [phone] Commercial Insulator: Tray Stapleton MD RBC (Bld) [#/Vol] 4.14 10*6/uL Normal 3.95-5.11 [facility] Comment on above: Performed By: #### B DEVYN NEAL, CDP #### [facility] [address] [place] [address] Commercial Insulator: Tray Stapleton MD WBC (Bld) [#/Vol] 7.4 10*3/uL Normal 3.5-11.3 [facility] Comment on above: Performed By: #### B DEVYN NEAL, CDP #### [facility] [address] [place], [place] [phone] Commercial Insulator: Tray Stapleton MD No Panel Informationon 01-13 [facility] Troponinon 01-13-2025 Troponin, High Sens <6 Normal 0-14 [facility] Comment on above: Result Comment: High Sensitivity Troponin values cannot be compared with other Troponin methodologies. Performed By: #### B DEVYN NEAL, CDP #### [facility] [address] [place], [place] [phone] Commercial Insulator: Tray Stapleton MD Troponin I.cardiac High sensitivity method [Mass/Vol] ng/L 0 - 14 ng/L [facility] Comment on above: High Sensitivity Tro [...] Raheem Bray MD 01/13/25 Final result Normal [facility] CBC with Auto Differentialon 12-20-2024 Basophils (Bld) [#/Vol] [facility] Immature granulocytes (Bld) [#/Vol] [facility] Lymphocytes/100 WBC (Bld) 2.17 % [facility] Monocytes/100 WBC (Bld) 0.55 % [facility] Neutrophils/100 WBC (Bld) 65 % 36 - 65 % [facility] Nucleated RBC/100 WBC (Bld) [Ratio] 0.0 % 0.0 per 100 WBC [facility] Segmented neutrophils/100 WBC (Bld) 5.18 % [facility] WBC other (Bld) [#/Vol] 8.0 [facility] CBC with Diffon 12-20-2024 Basophils/100 WBC (Bld) 0 % Normal 0-2 [facility] Comment on above: Performed By: #### C DP, CP, TROPI #### [address] [place] [address] Commercial Insulator: Tray Stapleton MD Eosinophils (Bld) [#/Vol] 0.05 10*3/uL Normal 0.00-0.44 [facility] Comment on above: Performed By: #### C DP, CP, TROPI #### [address] [place] [phone] Commercial Insulator: Tray Stapleton MD Eosinophils/100 WBC (Bld) 1 % Normal 1-4 [facility] Comment on above: Performed By: #### C DP, CP, TROPI #### [address] [place] [phone] Commercial Insulator: Tray Stapleton MD Erythrocyte distribution width (RBC) [Ratio] 13.6 % Normal 11.8-14.4 [facility] Comment on above: Performed By: #### C DP, CP, TROPI #### [address] [place] [address] Commercial Insulator: Tray Stapleton MD Hematocrit (Bld) [Volume fraction] 41.7 % Normal 36.3-47.1 [facility] Comment on above: Performed By: #### C DP, CP, TROPI #### [address] [place] [address] Commercial Insulator: Tray Stapleton MD Hemoglobin (Bld) [Mass/Vol] 14.0 g/dL Normal 11.9-15.1 [facility] Comment on above: Performed By: #### C DP, CP, TROPI #### [address] [place], [facility] Commercial Insulator: Tray Stapleton MD Immature granulocytes/100 WBC (Bld) 0 % Normal 0 [facility] Comment on above: Performed By: #### C DP, CP, TROPI #### [address] [place], [facility] [address] Commercial Insulator: Tray Stapleton MD Lymphocytes/100 WBC (Bld) 27 % Normal 24-43 [facility] Comment on above: Performed By: #### C DP, CP, TROPI #### [address] [place], [facility] [address] Commercial Insulator: Tray Stapleton MD MCH (RBC) [Entitic mass] 30.9 pg Normal 25.2-33.5 [facility] Comment on above: Performed By: #### C DP, CP, TROPI #### [address] [place], [facility] [address] Commercial Insulator: Tray Stapleton MD MCHC (RBC) [Mass/Vol] 33.6 g/dL Normal 28.4-34.8 [facility] Comment on above: Performed By: #### C DP, CP, TROPI #### [address] [place] [address] Commercial Insulator: Tray Stapleton MD MCV (RBC) [Entitic vol] 92.1 fL Normal 82.6-102.9 [facility] Comment on above: Performed By: #### C DP, CP, TROPI #### [address] [place], [place] [address] Commercial Insulator: Tray Stapleton MD Monocytes/100 WBC (Bld) 7 % Normal 3-12 [facility] Comment on above: Performed By: #### C DP, CP, TROPI #### [address] [place] [address] Commercial Insulator: Tray Stapleton MD Platelet mean volume (Bld) [Entitic vol] 8.8 fL Normal 8.1-13.5 [facility] Comment on above: Performed By: #### C DP, CP, TROPI #### [address] [place] [address] Commercial Insulator: Tray Stapleton MD Platelets (Bld) [#/Vol] 388 10*3/uL Normal 138-453 [facility] Comment on above: Performed By: #### C DP, CP, TROPI #### [address] [place], [place] [address] Commercial Insulator: Tray Stapleton MD RBC (Bld) [#/Vol] 4.53 10*6/uL Normal 3.95-5.11 [facility] Comment on above: Performed By: #### C DP, CP, TROPI #### [address] [place], [place] [address] Commercial Insulator: Tray Stapleton MD Abs. Basophil <0.03 Normal 0.00-0.20 [facility] Comment on above: Performed By: #### C DP, CP, TROPI #### [address] [place], [place] [address] Commercial Insulator: Tray Stapleton MD Abs.Imm.Granulocyt e <0.03 Normal 0.00-0.30 [facility] Comment on above: Performed By: #### C DP, CP, TROPI #### [address] [place] [id number] Commercial Insulator: Tray Stapleton MD Abs.Neutrophil (Seg) 5.18 k/uL Normal 1.50-8.10 [facility] Comment on above: Performed By: #### C DP, CP, TROPI #### [facility] [address] [place], [place] 5547083 Commercial Insulator: Tray Stapleton MD Lymphocytes (Bld) [#/Vol] 2.17 10*3/uL Normal 1.10-3.70 [facility] Comment on above: Performed By: #### C DP, CP, TROPI #### [address] [place], [facility] Commercial Insulator: Tray Stapleton MD Monocytes (Bld) [#/Vol] 0.55 10*3/uL Normal 0.10-1.20 [facility] Comment on above: Performed By: #### C DP, CP, TROPI #### [address] [place], [facility] [address] Commercial Insulator: Tray Stapleton MD Neutrophil (Seg) 65 % Normal 36-65 [facility] Comment on above: Performed By: #### C DP, CP, TROPI #### [address] [place], [place] 8303283 Commercial Insulator: Tray Stapleton MD NRBC Automated 0.0 per 100 WBC Normal 0.0 [facility] Comment on above: Performed By: #### C DP, CP, TROPI #### [address] [place], [place] [phone] Commercial Insulator: Tray Stapleton MD WBC (Bld) [#/Vol] 8.0 10*3/uL Normal 3.5-11.3 [facility] Comment on above: Performed By: #### C DP, CP, TROPI #### [address] [place], [facility] Commercial Insulator: Tray Stapleton MD Comp Metabolic Profon 2024 Albumin [Mass/Vol] 4.7 g/dL Normal 3.5-5.2 [facility] Comment on above: Performed By: #### C DP, CP, TROPI #### [facility] [address] [place], [place] 7809283 Commercial Insulator: Tray Stapleton MD Albumin/Glob Ratio 1.6 Normal 1.0-2.5 [facility] Comment on above: Performed By: #### C DP, CP, TROPI #### [facility] [address] [place] [address] [place] [place], [place] [phone] Commercial Insulator: Tray Stapleton MD Alkaline Phos 84 U/L Normal 35-104 [facility] Comment on above: Performed By: #### C DP, CP, TROPI #### [address] [place], [place] 0570683 Commercial Insulator: Tray Stapleton MD ALT [Catalytic activity/Vol] 6 U/L Low 10-35 [facility] Comment on above: Performed By: #### C DP, CP, TROPI #### [address] [place], [place] 3665083 Commercial Insulator: Tray Stapleton MD Anion gap [Moles/Vol] 11 mmol/L Normal 9-16 [facility] Comment on above: Performed By: #### C DP, CP, TROPI #### [facility] [address] [place] [address] [place], [place] [phone] Commercial Insulator: Tray Stapleton MD AST [Catalytic activity/Vol] 23 U/L Normal 10-35 [facility] Comment on above: Performed By: #### C DP, CP, TROPI #### [facility] [address] [place], [place] [phone] Commercial Insulator: Tray Stapleton MD Bilirubin [Mass/Vol] 0.3 mg/dL Normal 0.00-1.20 [facility] Comment on above: Performed By: #### C DP, CP, TROPI #### [facility] [address] [place] [address] Commercial Insulator: Tray Stapleton MD BUN/CRE Ratio 14 Normal 9-20 [facility] Comment on above: Performed By: #### C DP, CP, TROPI #### [facility] [address] [place], [place] 7885383 Commercial Insulator: Tray Stapleton MD Calcium [Mass/Vol] 8.9 mg/dL Normal 8.6-10.4 [facility] Comment on above: Performed By: #### C DP, CP, TROPI #### [address] [place], [place] 2201983 Commercial Insulator: Tray Stapleton MD Chloride [Moles/Vol] 103 mmol/L Normal 98-107 [facility] Comment on above: Performed By: #### C CEM CP, TROPI #### [address] [place], [place] [phone] Commercial Insulator: Tray Stapleton MD CO2 [Moles/Vol] 26 mmol/L Normal 20-31 [facility] Comment on above: Performed By: #### C DP CP, TROPI #### [address] [place], [place] 1337583 Commercial Insulator: Tray Stapleton MD Creatinine [Mass/Vol] 0.8 mg/dL Normal 0.50-0.90 [facility] Comment on above: Performed By: #### C DP, CP, TROPI #### [address] [place] [address] Commercial Insulator: Trya Stapleton MD GFR/1.73 sq M.predicted among non-blacks MDRD (S/P/Bld) [Vol rate/Area] mL/min/{1.73_m2} Normal >60 [facility] Comment on above: Result Comment: These [...] renal tubular secretion. Performed By: #### C GABBY PRIEST, TROPI #### [facility] [address] [place] [address] Commercial Insulator: Tray Stapleton MD Glucose [Mass/Vol] 98 mg/dL Normal 74-99 [facility] Comment on above: Performed By: #### C CEM CP, TROPI #### [address] [place] [address] Commercial Insulator: Tray Stapleton MD Potassium [Moles/Vol] 3.8 mmol/L Normal 3.7-5.3 [facility] Comment on above: Performed By: #### C GABBY PRIEST, TROPI #### [address] [place] [address] Commercial Insulator: Tray Stapleton MD Protein [Mass/Vol] 7.7 g/dL Normal 6.6-8.7 [facility] Comment on above: Performed By: #### C CEM CP, TROPI #### [address] [place], [place] 2465383 Commercial Insulator: Tray Stapleton MD Sodium [Moles/Vol] 140 mmol/L Normal 136-145 [facility] Comment on above: Performed By: #### C GABBY PRIEST, TROPI #### [address] [place] [address] Commercial Insulator: Tray Stapleton MD Urea nitrogen [Mass/Vol] 11 mg/dL Normal 6-20 [facility] Comment on above: Performed By: #### C DP, CP, TRAVISI #### [facility] [address] [place] [address] Commercial Insulator: Tray Stapleton MD [facility] Metabolic Pane [facility] 12-20-2024 Albumin [Mass/Vol] 4.7 g/dL 3.5 - 5.2 g/dL [facility] Albumin/Globulin [Mass ratio] 1.6 {ratio} 1.0 - 2.5 [facility] ALP [Catalytic activity/Vol] 84 U/L 35 - 104 U/L [facility] ALT [Catalytic activity/Vol] 6 U/L Low 10 - 35 U/L [facility] Anion gap [Moles/Vol] 11 mmol/L 9 - 16 mmol/L [facility] AST [Catalytic activity/Vol] 23 U/L 10 - 35 U/L [facility] Bilirubin [Mass/Vol] 0.3 mg/dL 0.00 - 1.20 mg/dL [facility] Calcium [Mass/Vol] 8.9 mg/dL 8.6 - 10. 4 mg/dL [facility] Chloride [Moles/Vol] 103 mmol/L 98 - 107 mmol/L [facility] CO2 [Moles/Vol] 26 mmol/L 20 - 31 mmol/L [facility] Creatinine [Mass/Vol] 0.8 mg/dL 0.50 - 0.90 mg/dL [facility] Est, Glom Filt Rate - PINF [facility] Comment on above: These results are [...] [Mass/Vol] 98 mg/dL 74 - 99 mg/dL [facility] Interpretation and review of laboratory results Abnormal [facility] Potassium [Moles/Vol] 3.8 mmol/L 3.7 - 5.3 mmol/L [facility] Protein [Mass/Vol] 7.7 g/dL 6.6 - 8.7 g/dL [facility] Sodium [Moles/Vol] 140 mmol/L 136 - 145 mmol/L [facility] Urea nitrogen [Mass/Vol] 11 mg/dL 6 - 20 mg/dL [facility] Urea nitrogen/Creatinin e [Mass ratio] 14 mg/mg 9 - 20 [facility] Troponinon 12-20-2024 Troponin I.cardiac High sensitivity method [Mass/Vol] ng/L 0 - 14 ng/L [facility] Comment on above: High Sensitivity Tro ponin values cannot be compared with other Troponin methodologies. [facility] Troponin, High Sens <6 Normal 0-14 [facility] Comment on above: Result Comment: High Sensitivity Troponin values cannot be compared with other Troponin methodologies. Performed By: #### C DP, CP, TROPI #### [facility] [address] [place] [address] Commercial Insulator: Tray Stapleton MD CBCon 11-03-2024 Erythrocyte distribution width (RBC) [Ratio] 13.9 % 11.8 - 14.4 % [facility] Hematocrit (Bld) [Volume fraction] 40.6 % 36.3 - 47.1 % [facility] Hemoglobin (Bld) [Mass/Vol] 13.1 g/dL 11.9 - 15.1 g/dL [facility] MCH (RBC) [Entitic mass] 30.8 pg 25.2 - 33.5 pg [facility] MCHC (RBC) [Mass/Vol] 32.3 g/dL 28.4 - 34.8 g/dL [facility] MCV (RBC) [Entitic vol] 95.5 fL 82.6 - 102.9 fL [facility] Nucleated RBC/100 WBC (Bld) [Ratio] 0.0 % 0.0 per 100 WBC [facility] Platelet mean volume (Bld) [Entitic vol] 9.6 fL 8.1 - 13.5 fL [facility] Platelets (Bld) [#/Vol] 411 10*3/uL [facility] RBC (Bld) [#/Vol] 4.25 10*6/uL 3.95 - 5.1 1 m/uL [facility] WBC other (Bld) [#/Vol] 8.6 [facility] Erythrocyte distribution width (RBC) [Ratio] 13.9 % Normal 11.8-14.4 [facility] Comment on above: Performed By: #### C P, CBC, HCG #### [facility] [address] [place] [address] Commercial Insulator: Tray Stapleton MD #### PHEP, HIVCMB, AHBS, TREP #### [address] [phone] Commercial Insulator: Nabor Gatica MD Hematocrit (Bld) [Volume fraction] 40.6 % Normal 36.3-47.1 [facility] Comment on above: Performed By: #### C P, CBC, HCG #### [address] [place] [address] Commercial Insulator: Tray Stapleton MD #### PHEP, HIVCMB, AHBS, TREP #### [address] [phone] Commercial Insulator: Nabor Gatica MD Hemoglobin (Bld) [Mass/Vol] 13.1 g/dL Normal 11.9-15.1 [facility] Comment on above: Performed By: #### C P, CBC, HCG #### [facility] [address] [place] [address] [place] [address] Commercial Insulator: Tray Stapleton MD #### PHEP, HIVCMB, AHBS, TREP #### [place] [address] [place], [place] [phone] Commercial Insulator: Nabor Gatica MD MCH (RBC) [Entitic mass] 30.8 pg Normal 25.2-33.5 [facility] Comment on above: Performed By: #### C P, CBC, HCG #### [address] [place] [phone] Commercial Insulator: Tray Stapleton MD #### PHEP, HIVCMB, AHBS, TREP #### [address] [phone] Commercial Insulator: Nabor Gatica MD MCHC (RBC) [Mass/Vol] 32.3 g/dL Normal 28.4-34.8 [facility] Comment on above: Performed By: #### C P, CBC, HCG #### [address] [place] [phone] Commercial Insulator: Tray Stapleton MD #### PHEP, HIVCMB, AHBS, TREP #### [address] [address] Commercial Insulator: Nabor Gatica MD MCV (RBC) [Entitic vol] 95.5 fL Normal 82.6-102.9 [facility] Comment on above: Performed By: #### C P, CBC, HCG #### [address] [place] [phone] Commercial Insulator: Tray Stapleton MD #### PHEP, HIVCMB, AHBS, TREP #### [address] [address] Commercial Insulator: Nabor Gatica MD NRBC Automated 0.0 per 100 WBC Normal 0.0 [facility] Comment on above: Performed By: #### C P, CBC, HCG #### [address] [place] [phone] Commercial Insulator: Tray Stapleton MD #### PHEP, HIVCMB, AHBS, TREP #### [address] [phone] Commercial Insulator: Nabor Gatica MD Platelet mean volume (Bld) [Entitic vol] 9.6 fL Normal 8.1-13.5 [facility] Comment on above: Performed By: #### C P, CBC, HCG #### [address] [place], [place] [phone] Commercial Insulator: Tray Stapleton MD #### PHEP, HIVCMB, AHBS, TREP #### [address] [address] Commercial Insulator: Nabor Gatica MD Platelets (Bld) [#/Vol] 411 10*3/uL Normal 138-453 [facility] Comment on above: Performed By: #### C P, CBC, HCG #### [address] [place], [place] 4963483 Commercial Insulator: Tray Stapleton MD #### PHEP, HIVCMB, AHBS, TREP #### [address] [address] Commercial Insulator: Nabor Gatica MD RBC (Bld) [#/Vol] 4.25 10*6/uL Normal 3.95-5.11 [facility] Comment on above: Performed By: #### C P, CBC, HCG #### [address] [place], [place] [phone] Commercial Insulator: Tray Stapleton MD #### PHEP, HIVCMB, AHBS, TREP #### [address] [address] Commercial Insulator: Nabor Gatica MD WBC (Bld) [#/Vol] 8.6 10*3/uL Normal 3.5-11.3 [facility] Comment on above: Performed By: #### C P, CBC, HCG #### [address] [place], [place] [phone] Commercial Insulator: Tray Stapleton MD #### PHEP, HIVCMB, AHBS, TREP #### [place] [phone] [place] [address] Commercial Insulator: Nabor Gatica MD Comp Metabolic Profon 2023 Albumin [Mass/Vol] 4.4 g/dL Normal 3.5-5.2 [facility] Comment on above: Performed By: #### C P, CBC, HCG #### [facility] [address] [place] [address] [place], [place] [phone] Commercial Insulator: Tray Stapleton MD #### PHEP, HIVCMB, AHBS, TREP #### [address] [address] Commercial Insulator: Nabor Gatica MD Albumin/Glob Ratio 1.5 Normal 1.0-2.5 [facility] Comment on above: Performed By: #### C P, CBC, HCG #### [address] [place], [place] [phone] Commercial Insulator: Tray Stapleton MD #### PHEP, HIVCMB, AHBS, TREP #### [address] [address] Commercial Insulator: Nabor Gatica MD Alkaline Phos 91 U/L Normal 35-104 [facility] Comment on above: Performed By: #### C P, CBC, HCG #### [address] [place], [place] 9000483 Commercial Insulator: Tray Stapleton MD #### PHEP, HIVCMB, AHBS, TREP #### [address] [phone] Commercial Insulator: Nabor Gatica MD ALT [Catalytic activity/Vol] 9 U/L Low 10-35 [facility] Comment on above: Performed By: #### C P, CBC, HCG #### [facility] [address] [place], [place] [phone] Commercial Insulator: Tray Stapleton MD #### PHEP, HIVCMB, AHBS, TREP #### [address] [address] Commercial Insulator: Nabor Gatica MD Anion gap [Moles/Vol] 11 mmol/L Normal 9-16 [facility] Comment on above: Performed By: #### C P, CBC, HCG #### [facility] [address] [place], [place] [phone] Commercial Insulator: Tray Stapleton MD #### PHEP, HIVCMB, AHBS, TREP #### [address] [phone] Commercial Insulator: Nabor Gatica MD AST [Catalytic activity/Vol] 23 U/L Normal 10-35 [facility] Comment on above: Performed By: #### C P, CBC, HCG #### [facility] [address] [place], [place] [phone] Commercial Insulator: Tray Stapleton MD #### PHEP, HIVCMB, AHBS, TREP #### [address] [phone] Commercial Insulator: Nabor Gatica MD Bilirubin [Mass/Vol] 0.4 mg/dL Normal 0.00-1.20 [facility] Comment on above: Performed By: #### C P, CBC, HCG #### [facility] [address] [place], [place] [phone] Commercial Insulator: Tray Stapleton MD #### PHEP, HIVCMB, AHBS, TREP #### [address] [phone] Commercial Insulator: Nabor Gatica MD BUN/CRE Ratio 19 Normal 9-20 [facility] Comment on above: Performed By: #### C P, CBC, HCG #### [facility] [address] [place], [place] 2919883 Commercial Insulator: Tray Stapleton MD #### PHEP, HIVCMB, AHBS, TREP #### [address] [phone] Commercial Insulator: Nabor Gatica MD Calcium [Mass/Vol] 9.3 mg/dL Normal 8.6-10.4 [facility] Comment on above: Performed By: #### C P, CBC, HCG #### [facility] [address] [place] [address] Commercial Insulator: Tray Stapleton MD #### PHEP, HIVCMB, AHBS, TREP #### [address] [phone] Commercial Insulator: Nabor Gatica MD Chloride [Moles/Vol] 106 mmol/L Normal 98-107 [facility] Comment on above: Performed By: #### C P, CBC, HCG #### [facility] [address] [place] [address] [place], [place] [phone] Commercial Insulator: Tray Stapleton MD #### PHEP, HIVCMB, AHBS, TREP #### [address] [phone] Commercial Insulator: Nabor Gatica MD CO2 [Moles/Vol] 25 mmol/L Normal 20-31 [facility] Comment on above: Performed By: #### C P, CBC, HCG #### [facility] [address] [place] [address] Commercial Insulator: Tray Stapleton MD #### PHEP, HIVCMB, AHBS, TREP #### [address] [phone] Commercial Insulator: Nabor Gatica MD Creatinine [Mass/Vol] 0.7 mg/dL Normal 0.50-0.90 [facility] Comment on above: Performed By: #### C P, CBC, HCG #### [facility] [address] [place] [address] [place] [address] Commercial Insulator: Tray Stapleton MD #### PHEP, HIVCMB, AHBS, TREP #### [address] [phone] Commercial Insulator: Nabor Gatica MD GFR/1.73 sq M.predicted among non-blacks MDRD (S/P/Bld) [Vol rate/Area] mL/min/{1.73_m2} Normal >60 [facility] Comment on above: Result Comment: These [...] By: #### C P, CBC, HCG #### [facility] [address] [place] [address] [place] [address] Commercial Insulator: Tray Stapleton MD #### PHEP, HIVCMB, AHBS, TREP #### [address] [phone] Commercial Insulator: Nabor Gatica MD Glucose [Mass/Vol] 79 mg/dL Normal 74-99 [facility] Comment on above: Performed By: #### C P, CBC, HCG #### [facility] [address] [place] [address] [place] [address] Commercial Insulator: Tray Stapleton MD #### PHEP, HIVCMB, AHBS, TREP #### [phone] [place], [place] [phone] Commercial Insulator: Nabor Gatica MD Potassium [Moles/Vol] 3.9 mmol/L Normal 3.7-5.3 [facility] Comment on above: Performed By: #### C P, CBC, HCG #### [address] [place], [place] 5101683 Commercial Insulator: Tray Stapleton MD #### PHEP, HIVCMB, AHBS, TREP #### [address] [id number] Commercial Insulator: Nabor Gatica MD Protein [Mass/Vol] 7.4 g/dL Normal 6.6-8.7 [facility] Comment on above: Performed By: #### C P, CBC, HCG #### [address] [place], [place] [id number] Commercial Insulator: Tray Stapleton MD #### PHEP, HIVCMB, AHBS, TREP #### [address] [address] Commercial Insulator: Nabor Gatica MD Sodium [Moles/Vol] 142 mmol/L Normal 136-145 [facility] Comment on above: Performed By: #### C P, CBC, HCG #### [address] [place] [address] Commercial Insulator: Tray Stapleton MD #### PHEP, HIVCMB, AHBS, TREP #### [address] [address] Commercial Insulator: Nabor Gatica MD Urea nitrogen [Mass/Vol] 13 mg/dL Normal 6-20 [facility] Comment on above: Performed By: #### C P, CBC, HCG #### [address] [place] [address] Commercial Insulator: Tray Stapleton MD #### PHEP, HIVCMB, AHBS, TREP #### [address] [id number] Commercial Insulator: Nabor Gatica MD [facility] 11-03-2024 Albumin [Mass/Vol] 4.4 g/dL 3.5 - 5.2 g/dL [facility] Albumin/Globulin [Mass ratio] 1.5 {ratio} 1.0 - 2.5 [facility] ALP [Catalytic activity/Vol] 91 U/L 35 - 104 U/L [facility] ALT [Catalytic activity/Vol] 9 U/L Low 10 - 35 U/L [facility] Anion gap [Moles/Vol] 11 mmol/L 9 - 16 mmol/L [facility] AST [Catalytic activity/Vol] 23 U/L 10 - 35 U/L [facility] Bilirubin [Mass/Vol] 0.4 mg/dL 0.00 - 1.20 mg/dL [facility] Calcium [Mass/Vol] 9.3 mg/dL 8.6 - 10. 4 mg/dL [facility] Chloride [Moles/Vol] 106 mmol/L 98 - 107 mmol/L [facility] CO2 [Moles/Vol] 25 mmol/L 20 - 31 mmol/L [facility] Creatinine [Mass/Vol] 0.7 mg/dL 0.50 - 0.90 mg/dL [facility] Est, [place] Brizuelat Rate - PINF [facility] Comment on above: These results are [...] [Mass/Vol] 79 mg/dL 74 - 99 mg/dL [facility] Interpretation and review of laboratory results Abnormal [facility] Potassium [Moles/Vol] 3.9 mmol/L 3.7 - 5.3 mmol/L [facility] Protein [Mass/Vol] 7.4 g/dL 6.6 - 8.7 g/dL [facility] Sodium [Moles/Vol] 142 mmol/L 136 - 145 mmol/L [facility] Urea nitrogen [Mass/Vol] 13 mg/dL 6 - 20 mg/dL [facility] Urea nitrogen/Creatinin e [Mass ratio] 19 mg/mg 9 - 20 [facility] HCG Qualitative, Serumon HCG ( test) Ql Negative NEGATIVE [facility] Comment on above: Specimens with hCG l evels near the threshold of the test (25 mIU/mL) may give a negative or indeterminate result. In such cases, another test should be performed with a new specimen in 48-72 hours. If early is suspected clinically in this setting, correlation with quantitative serum b-hCG level is suggested. [facility] has confirmed the use of plasma for this test. This has not been cleared or approved by the U.S. Food and Drug Administration. The FDA has determined that such clearance is not necessary. [facility] HCG Screen, Bloodon 11-03-20 24 HCG Screen, Blood Negative Normal NEG [facility] Comment on above: Result Comment: Spec imens with hCG levels near the threshold of the test (25 mIU/mL) may give a negative or indeterminate result. In such cases, another test should be performed with a new specimen in 48-72 hours. If early is suspected clinically in this setting, correlation with quantitative serum b-hCG level is suggested. [facility] has confirmed the use of plasma for this test. This has not been cleared or approved by the U.S. Food and Drug Administration. The FDA has determined that such clearance is not necessary. Performed By: #### C P, CBC, HCG #### [facility] [address] [place] [address] Commercial Insulator: Tray Stapleton MD #### PHEP, HIVCMB, AHBS, TREP #### [facility] [address] [place] [address] Commercial Insulator: Nabor Gatica MD HIV Ag/Abon 11-03-2024 HIV Ag/Ab Non-Reactive Normal NR [facility] Comment on above: Result Comment: No l aboratory evidence of HIV infection. If acute HIV infection is suspected, consider testing for HIV-1 RNA. Performed By: #### B DEVYN NEAL, CDP #### [address] [place] [address] Commercial Insulator: Tray Stapleton MD HIV Screenon 11-03-2024 HIV 1+2 Ab+HIV1 p24 Ag IA Ql Non-Reactive NONREACTIVE [facility] Comment on above: No laboratory eviden ce of HIV infection. If acute HIV infection is suspected, consider testing for HIV-1 RNA. [facility] Hep B Surf Abon 11-03-2024 Hep B Surf Ab <3.50 Normal <10 [facility] Comment on above: Result Comment: REFERENCE RANGE: <10.0 NON-REACTIVE/NOT IMMUNE >=10.0 REACTIVE/IMMUNE Performed By: #### B DEVYN NEAL, CDP #### [address] [place] [address] Commercial Insulator: Tray Stapleton MD Hepatitis Acute [facility] 11-03 Hep A Ab,IgM Non-Reactive Normal [facility] Comment on above: Performed By: #### B DEVYN NEAL, CDP #### [address] [place], [place] [phone] Commercial Insulator: Tray Stapleton MD Hep B Core Ab,IgM Non-Reactive Normal [facility] Comment on above: Performed By: #### B DEVYN NEAL, CDP #### [address] [place] [address] Commercial Insulator: Tray Stapleton MD Hep B Surf Ag Non-Reactive Normal [facility] Comment on above: Performed By: #### B DEVYN NEAL, CDP #### [address] [place] [address] Commercial Insulator: Tray Stapleton MD Hep C Ab Non-Reactive Normal [facility] Comment on above: Result Comment: The hepatitis [...] RNA by PCR. Performed By: #### B MP, DEVYN, CDP #### [facility] [address] [place], [place] [phone] Commercial Insulator: Tray Stapleton MD Hepatitis B Surface Antibody on 11-03-2024 HBV surface Ab IA Qn m[IU]/mL NINF [facility] Comment on above: REFERENCE RANGE: <10.0 NON-REACTIVE/NOT IMMUNE >=10.0 REACTIVE/IMMUNE Hepatitis Panel, Acuteon HAV IgM IA Ql Non-Reactive NONREACTIVE [facility] HBV core IgM IA Ql Non-Reactive NONREACTIVE [facility] HBV surface Ag IA Ql Non-Reactive NONREACTIVE [facility] HCV Ab IA Ql Non-Reactive NONREACTIVE [facility] Comment on above: The hepatitis C [...] RNA by PCR. No Panel Informationon 11-03 [facility] T. pallidum Abon 11-03-2024 T. pallidum Ab IA Ql (S) Non-Reactive NONREACTIVE [facility] Comment on above: T. pallidum antibodies are not detected. There is no serological evidence of infection with T. pallidum (early primary syphilis cannot be excluded). Retest in 2-4 weeks if syphilis is clinically suspect. [facility] T.pallidum Ab Screenon 11-03 T.pallidum Ab Screen Non-Reactive Normal NR [facility] Comment on above: Result Comment: T. pallidum antibodies are not detected. There is no serological evidence of infection with T. pallidum (early primary syphilis cannot be excluded). Retest in 2-4 weeks if syphilis is clinically suspect. Performed By: #### B MP, TROPI, CDP #### [facility] [address] [place] [address] Commercial Insulator: Tray Stapleton MD Flu A/B Ag Detectionon 10-17 Flu A Ag Detection Positive Abnormal NEG [facility] Comment on above: Result Comment: for Influenza A Antigen Performed By: #### F LUABA #### [facility] [address] [place], [place] 0[address]83 Commercial Insulator: Tray Stapleton MD Flu B Ag Detection Negative Normal NEG [facility] Comment on above: Result Comment: for Influenza B Antigen. Performed By: #### F LUABA #### [facility] [address] [place] [address] Commercial Insulator: Tray Stapleton MD Rapid influenza A/B antigens on 10-17-2024 FLUAV Ag Ql (Unsp spec) Positive Abnormal NEGATIVE [facility] Comment on above: for Influenza A Anti gen FLUBV Ag Ql (Unsp spec) Negative NEGATIVE [facility] Comment on above: for Influenza B Anti gen. Interpretation and review of laboratory results Abnormal [facility] XR KNEE LEFT (1-2 VIEWS)on 1 [...] Julius Torres MD 09/18/24 Final result Normal [facility] XR Knee - left 1 or 2 Viewso n 09-18-2024 No acute abnormality of the knee. [facility] RADIOLOGY EXAMINATION: TWO XRAY VIEWS OF THE LEFT KNEE 09/18/2024 1:51 pm COMPARISON: None. HISTORY: ORDERING SYSTEM PROVIDED HISTORY: pain TECHNOLOGIST PROVIDED HISTORY: Reason for exam:->pain Is the patient ?->No What reading provider will be dictating this exam?->CRC FINDINGS: No evidence of acute fracture or dislocation. No focal osseous lesion. No evidence of joint effusion. No focal soft tissue abnormality. [facility] Julius Torres MD - 09/18/2024 EXAMINATION: TWO [...] IMPRESSION: No acute abnormality of the knee. [facility] Informous Radiology Study observation (narrative) [employer] XR Knee - left 1 or 2 ViewsO rdered By: Julius Torres on 09-18-2024 [facility] [employer] Work Phone: Bacteria identifiedon 2023 Bacteria identified Cx Nom (U) Test: Urine Culture Specimen Source: Clean Catch/Voided Specimen Type: Urine Specimen Date: 07/22/2024126 Result Date: 07/23/2024 0833 Result Status: Final result Abnormal: No Resulting Lab: [facility] [address] [address] CULTURE No significant growth Normal [facility] Comment on above: Performed By: #### 5 902-2 #### MATEUS CHENG ([id number]) [facility] ([facility]) [address] [place] [address] Blood Gas Lactic Acid, Karon anderson 07-22-2024 Lactate (BldV) [Moles/Vol] 1.5 mmol/L 0.4 - 2.0 mmol/L [facility] CBC W Auto Differential pane l (Bld)on 07-22-2024 Basophils (Bld) [#/Vol] 0.04 10*3/uL [facility] Basophils/100 WBC (Bld) 0.4 % 0.0 - 2.0 % [facility] Eosinophils (Bld) [#/Vol] 0.11 10*3/uL [facility] Eosinophils/100 WBC (Bld) 1.1 % 0.0 - 6.0 % [facility] Erythrocyte distribution width (RBC) [Ratio] 15.8 % High 11.5 - 14.5 % [facility] Hematocrit (Bld) [Volume fraction] 38.2 % 36.0 - 46.0 % [facility] Hemoglobin (Bld) [Mass/Vol] 12.4 g/dL 12.0 - 16.0 g/dL [facility] Immature granulocytes (Bld) [#/Vol] 0.03 10*3/uL [facility] Immature granulocytes/100 WBC (Bld) 0.3 % 0.0 - 0.9 % [facility] Comment on above: Immature Granulocyte Count (IG) includes promyelocytes, myelocytes and metamyelocytes but does not include bands. Percent differential counts (%) should be interpreted in the context of the absolute cell counts (cells/UL). Interpretation and review of laboratory results Abnormal [facility] Lymphocytes (Bld) [#/Vol] 2.25 10*3/uL [facility] Lymphocytes/100 WBC (Bld) 22.6 % 13.0 - 44.0 % [facility] MCH (RBC) [Entitic mass] 29.5 pg 26.0 - 34.0 pg [facility] MCHC (RBC) [Mass/Vol] 32.5 g/dL 32.0 - 36.0 g/dL [facility] MCV (RBC) [Entitic vol] 91 fL 80 - 100 fL [facility] Monocytes (Bld) [#/Vol] 0.75 10*3/uL [facility] Monocytes/100 WBC (Bld) 7.5 % 2.0 - 10.0 % [facility] Neutrophils (Bld) [#/Vol] 6.76 10*3/uL [facility] Comment on above: Percent differential counts (%) should be interpreted in the context of the absolute cell counts (cells/uL). Neutrophils/100 WBC (Bld) 68.1 % 40.0 - 80.0 % [facility] Nucleated RBC/100 WBC (Bld) [Ratio] 0.0 % [facility] Platelets (Bld) [#/Vol] 388 10*3/uL [facility] RBC (Bld) [#/Vol] 4.21 10*6/uL [facility] WBC (Bld) [#/Vol] 9.9 10*3/uL [facility] Basophils (Bld) [#/Vol] 0.04 x10*3/uL Normal 0.00-0.10 [facility] Comment on above: Performed By: #### 5 7021-8 #### MATEUS CHENG ([id number]) [facility] ([facility]) [address] [place] [address] Basophils/100 WBC (Bld) 0.4 % Normal 0.0-2.0 [facility] Comment on above: Performed By: #### 5 7021-8 #### MATEUS CEHNG ([id number]) [facility] ([facility]) [address] [place] [address] Eosinophils (Bld) [#/Vol] 0.11 x10*3/uL Normal 0.00-0.70 [facility] Comment on above: Performed By: #### 5 7021-8 #### MATEUS CHENG ([id number]) [facility] ([facility]) [address] [place] [address] Eosinophils/100 WBC (Bld) 1.1 % Normal 0.0-6.0 [facility] Comment on above: Performed By: #### 5 7021-8 #### MATEUS CHENG ([id number]) [facility] ([facility]) [address] [place] [address] Erythrocyte distribution width (RBC) [Ratio] 15.8 % High 11.5-14.5 [facility] Comment on above: Performed By: #### 5 7021-8 #### MATEUS CHENG ([id number]) [facility] ([facility]) [address] [place] [address] Hematocrit (Bld) [Volume fraction] 38.2 % Normal 36.0-46.0 [facility] Comment on above: Performed By: #### 5 7021-8 #### MATEUS CHENG ([id number]) [facility] ([facility]) [address] [place] [address] Hemoglobin (Bld) [Mass/Vol] 12.4 g/dL Normal 12.0-16.0 [facility] Comment on above: Performed By: #### 5 7021-8 #### MATEUS CHENG ([id number]) [facility] ([facility]) [address] [place] [address] Immature granulocytes (Bld) [#/Vol] 0.03 x10*3/uL Normal 0.00-0.70 [facility] Comment on above: Performed By: #### 5 7021-8 #### MATEUS CHENG ([id number]) [facility] ([facility]) [address] [place] [address] Immature granulocytes/100 WBC (Bld) 0.3 % Normal 0.0-0.9 [facility] Comment on above: Result Comment: Joanie ture Granulocyte Count (IG) includes promyelocytes, myelocytes and metamyelocytes but does not include bands. Percent differential counts (%) should be interpreted in the context of the absolute cell counts (cells/UL). Performed By: #### 5 7021-8 #### MATEUS CHENG ([id number]) [facility] ([facility]) [address] [place] [address] Lymphocytes (Bld) [#/Vol] 2.25 x10*3/uL Normal 1.20-4.80 [facility] Comment on above: Performed By: #### 5 7021-8 #### MATEUS CHENG ([id number]) [facility] ([facility]) [address] [place] [address]7987 Lymphocytes/100 WBC (Bld) 22.6 % Normal 13.0-44.0 [facility] Comment on above: Performed By: #### 5 7021-8 #### MATEUS CHENG ([id number]) [facility] ([facility]) [address] [place] [address] 21900 MCH (RBC) [Entitic mass] 29.5 pg Normal 26.0-34.0 [facility] Comment on above: Performed By: #### 5 7021-8 #### MATEUS CHENG ([id number]) [facility] ([facility]) [address] [place] [address] 19555 MCHC (RBC) [Mass/Vol] 32.5 g/dL Normal 32.0-36.0 [facility] Comment on above: Performed By: #### 5 7021-8 #### MATEUS CHENG ([id number]) [facility] ([facility]) [address] [place] [address]59[address] MCV (RBC) [Entitic vol] 91 fL Normal 80-100 [facility] Comment on above: Performed By: #### 5 7021-8 #### MATEUS CHENG ([id number]) [facility] ([facility]) [address] [place] [address] 93392 Monocytes (Bld) [#/Vol] 0.75 x10*3/uL Normal 0.10-1.00 [facility] Comment on above: Performed By: #### 5 7021-8 #### MATEUS CHENG ([id number]) [facility] ([facility]) [address] [place] [address] 07208 Monocytes/100 WBC (Bld) 7.5 % Normal 2.0-10.0 [facility] Comment on above: Performed By: #### 5 7021-8 #### MATEUS CHENG ([id number]) [facility] ([facility]) [address] [place] [address] 49948 Neutrophils (Bld) [#/Vol] 6.76 x10*3/uL Normal 1.20-7.70 [facility] Comment on above: Result Comment: Perc ent differential counts (%) should be interpreted in the context of the absolute cell counts (cells/uL). Performed By: #### 5 7021-8 #### MATEUS CHENG ([id number]) [facility] ([facility]) [address] [place] [address] 92491 Neutrophils/100 WBC (Bld) 68.1 % Normal 40.0-80.0 [facility] Comment on above: Performed By: #### 5 7021-8 #### MATEUS CHENG ([id number]) [facility] ([facility]) [address] [place] [address] 73043 Nucleated RBC/100 WBC (Bld) [Ratio] 0.0 /100 WBCs Normal 0.0-0.0 [facility] Comment on above: Performed By: #### 5 7021-8 #### MATEUS CHENG ([id number]) [facility] ([facility]) [address] [place] [address] 66686 Platelets (Bld) [#/Vol] 388 x10*3/uL Normal 150-450 [facility] Comment on above: Performed By: #### 5 7021-8 #### MATEUS CHENG ([id number]) [facility] ([facility]) [address] [place] [address] 38717 RBC (Bld) [#/Vol] 4.21 x10*6/uL Normal 4.00-5.20 [facility] Comment on above: Performed By: #### 5 7021-8 #### MATEUS CHENG ([id number]) [facility] ([facility]) [address] [place] [address] 78349 WBC (Bld) [#/Vol] 9.9 x10*3/uL Normal 4.4-11.3 [facility] Comment on above: Performed By: #### 5 7021-8 #### MATEUS CHENG ([id number]) [facility] ([facility]) [address] [place] [address] ANGIO CHEST ABDOMEN PELVI Son 07-22-2024 CT ANGIO CHEST ABDOMEN PELVIS Interpreted By: Alberto Cha, STUDY: CT ANGIO CHEST ABDOMEN PELVIS; 07/22/2024 1:54 am INDICATION: Signs/Symptoms:Chest pain radiating toback and headache with HTN r/o dissection. COMPARISON: None. ACCESSION NUMBER(S): [id number] ORDERING CLINICIAN: WILMAR COKER TECHNIQUE: Axial non-contrast [...] Alberto Cha 07/22/2024 2:22 AM Dictation workstation: [id number] [facility] CTA Chest and abdominal vess els W [...] Alberto Cha 07/22/2024 2:22 AM Dictation workstation: [id number] Interpreted By: Alberto Cha, STUDY: CT ANGIO CHEST ABDOMEN PELVIS; 07/22/2024 1:54 am INDICATION: Signs/Symptoms:Chest pain radiating toback and headache with HTN r/o dissection. COMPARISON: None. ACCESSION NUMBER(S): [id number] ORDERING CLINICIAN: WILMAR COKER TECHNIQUE: Axial non-contrast [...] HTN r/o dissection. COMPARISON: None. ACCESSION NUMBER(S): [id number] ORDERING CLINICIAN: WILMAR COKER TECHNIQUE: Axial non-contrast [...] Alberto Cha 07/22/2024 2:22 AM Dictation workstation: [id number] [facility] Work Phone: Radiology Study observation (narrative) [facility] Work Phone: CTA Chest and abdominal vess els W contrast IVOrdered By: Alberto Cha on 07-22-2024 [facility] Work Phone: Coagulation surface inducedo n 07-22-2024 aPTT Coag (PPP) [Time] 36 s Normal 27-38 [facility] Comment on above: Order Comment: The A PTT is no longer used for monitoring Unfractionated Heparin Therapy. For monitoring Heparin Therapy, use the Heparin Assay. Performed By: #### 1 4979-9 #### MATEUS CHENG ([id number]) [facility] ([facility]) [address] [place] [address] 99225 Coagulation tissue factor in ducedon 07-22-2024 PT Coag (PPP) [Time] 11.5 s Normal 9.8-12.8 [facility] Comment on above: Performed By: #### 5 902-2 #### MATEUS CHENG ([id number]) [facility] ([facility]) [address] [place] [address] 11973 Comprehensive metabolic 2000 panelon 07-22-2024 Albumin BCP dye [Mass/Vol] 4.5 g/dL 3.4 - 5.0 g/dL [facility] ALP [Catalytic activity/Vol] 62 U/L 33 - 110 U/L [facility] ALT With P-5'-P [Catalytic activity/Vol] 8 U/L 7 - 45 U/L [facility] Comment on above: Patients treated wit h Sulfasalazine may generate falsely decreased results for ALT. Anion gap [Moles/Vol] 12 mmol/L 10 - 20 mmol/L [facility] AST With P-5'-P [Catalytic activity/Vol] 17 U/L 9 - 39 U/L [facility] Bilirubin [Mass/Vol] 0.3 mg/dL 0.0 - 1.2 mg/dL [facility] Calcium [Mass/Vol] 9.4 mg/dL 8.6 - 10. 3 mg/dL [facility] Chloride [Moles/Vol] 107 mmol/L 98 - 107 mmol/L [facility] CO2 [Moles/Vol] 24 mmol/L 21 - 32 mmol/L [facility] Creatinine [Mass/Vol] 0.65 mg/dL 0.50 - 1.05 mg/dL [facility] eGFR - PINF [facility] Comment on above: Calculations of leticia mated GFR are performed using the 2020 CKD-EPI Study Refit equation without the race variable for the IDMS-Traceable creatinine methods. https://jasn.asnjournals.org/content//ASN.595824890 8 Glucose [Mass/Vol] 98 mg/dL 74 - 99 mg/dL [facility] Potassium [Moles/Vol] 3.9 mmol/L 3.5 - 5.3 mmol/L [facility] Protein [Mass/Vol] 7.8 g/dL 6.4 - 8.2 g/dL [facility] Sodium [Moles/Vol] 139 mmol/L 136 - 145 mmol/L [facility] Urea nitrogen [Mass/Vol] 12 mg/dL 6 - 23 mg/dL [facility] Albumin BCP dye [Mass/Vol] 4.5 g/dL Normal 3.4-5.0 [facility] Comment on above: Performed By: #### 2 4393-8 #### MATEUS CHENG ([id number]) [facility] (C) [address] [place] [address] ALP [Catalytic activity/Vol] 62 U/L Normal 33-110 [facility] Comment on above: Performed By: #### 2 4323-8 #### MATEUS CHENG ([id number]) [facility] ([facility]) [address] [place] [address] 47535 ALT With P-5'-P [Catalytic activity/Vol] 8 U/L Normal 7-45 [facility] Comment on above: Result Comment: Olivia ents treated with Sulfasalazine may generate falsely decreased results for ALT. Performed By: #### 2 4323-8 #### MATEUS CHENG ([id number]) [facility] ([facility]) [address] [place] [address] 79031 Anion gap [Moles/Vol] 12 mmol/L Normal 10-20 [facility] Comment on above: Performed By: #### 2 4323-8 #### MATEUS CHENG ([id number]) [facility] ([facility]) [address] [place] [address] 15127 AST With P-5'-P [Catalytic activity/Vol] 17 U/L Normal 9-39 [facility] Comment on above: Performed By: #### 2 4323-8 #### MATEUS CHENG ([id number]) [facility] ([facility]) [address] [place] [address] 73386 Bilirubin [Mass/Vol] 0.3 mg/dL Normal 0.0-1.2 [facility] Comment on above: Performed By: #### 2 4323-8 #### MATEUS CHENG ([id number]) [facility] ([facility]) [address] [place] [address] 49108 Calcium [Mass/Vol] 9.4 mg/dL Normal 8.6-10.3 [facility] Comment on above: Performed By: #### 2 4323-8 #### MATEUS CHENG ([id number]) [facility] ([facility]) [address] [place] [address] 83761 Chloride [Moles/Vol] 107 mmol/L Normal 98-107 [facility] Comment on above: Performed By: #### 2 4323-8 #### MATEUS CHENG ([id number]) [facility] ([facility]) [address] [place] [address] 49227 CO2 [Moles/Vol] 24 mmol/L Normal 21-32 [facility] Comment on above: Performed By: #### 2 4323-8 #### MATEUS CHENG ([id number]) [facility] ([facility]) [address] [place] [address] 03817 Creatinine [Mass/Vol] 0.65 mg/dL Normal 0.50-1.05 [facility] Comment on above: Performed By: #### 2 4323-8 #### MATEUS CHENG ([id number]) [facility] ([facility]) [address] [place] [address] 17091 GFR/1.73 sq M.predicted MDRD (S/P/Bld) [Vol rate/Area] mL/min/{1.73_m2} Normal >60 [facility] Comment on above: Result Comment: Calc ulations of estimated GFR are performed using the 2020 CKD-EPI Study Refit equation without the race variable for the IDMS-Traceable creatinine methods. https://jasn.asnjournals.org/content//ASN.305924171 8 Performed By: #### 2 4323-8 #### MATEUS CHENG ([id number]) [facility] ([facility]) [address] [place] [address] 29777 Glucose [Mass/Vol] 98 mg/dL Normal 74-99 [facility] Comment on above: Performed By: #### 2 4323-8 #### MATEUS CHENG ([id number]) [facility] ([facility]) [address] [place] [address] 93820 Potassium [Moles/Vol] 3.9 mmol/L Normal 3.5-5.3 [facility] Comment on above: Performed By: #### 2 4323-8 #### MATEUS CHENG ([id number]) [facility] ([facility]) [address] [place] [address] 76221 Protein [Mass/Vol] 7.8 g/dL Normal 6.4-8.2 [facility] Comment on above: Performed By: #### 2 4323-8 #### MATEUS CHENG ([id number]) [facility] ([facility]) [address] [place] [address] 43621 Sodium [Moles/Vol] 139 mmol/L Normal 136-145 [facility] Comment on above: Performed By: #### 2 4323-8 #### MATEUS CHENG ([id number]) [facility] ([facility]) [address] [place] [address] Urea nitrogen [Mass/Vol] 12 mg/dL Normal 6-23 [facility] Comment on above: Performed By: #### 2 4323-8 #### MATEUS CHENG ([id number]) [facility] ([facility]) [address] [place] [address] 88583 ECG 12-LEADon 07-22-2024 ECG 12-LEAD Ventricular Rate 88 Atrial Rate 88 P-R Interval 108 QRS Duration 84 Q-T Interval 362 QTC Calculation(Bazett) 438 P [place] 45 R [place] 85 T [place] 71 QRS Count 15 Q Onset 218 P Onset 164 P Offset 210 T Offset 399 QTC Frederic[place] 411 Diagnosis Sinus rhythm with short ME Otherwise normal ECG No previous ECGs available See ED provider note for full interpretation and clinical correlation Confirmed by June Salamanca ([id number]) on 07/27/2024 10:17:55 AM Normal [facility] Gas panel (BldV)on 4 Anion gap 4 (BldV) [Moles/Vol] 11.0 mmol/L 10.0 - 25.0 mmol/L [facility] Base excess Calc (BldV) [Moles/Vol] 0.7 mmol/L -2.0 - 3.0 mmol/L [facility] Calcium.ionized (BldV) [Moles/Vol] 1.20 mmol/L 1.10 - 1.33 mmol/L [facility] Chloride (BldV) [Moles/Vol] 106 mmol/L 98 - 107 mmol/L [facility] CO2 (BldV) [Partial pressure] 40 mm[Hg] Low [facility] Glucose [Mass/Vol] 101 mg/dL High 74 - 99 mg/dL [facility] HCO3 (Bld) [Moles/Vol] 25.4 mmol/L 22.0 - 26.0 mmol/L [facility] Hematocrit Est (Bld) [Volume fraction] 39.0 % 36.0 - 46.0 % [facility] Hemoglobin (Bld) [Mass/Vol] 13.0 g/dL 12.0 - 16.0 g/dL [facility] Inhaled oxygen concentration 21 % [facility] Interpretation and review of laboratory results Abnormal [facility] Lactate (BldV) [Moles/Vol] 2.1 mmol/L High 0.4 - 2.0 mmol/L [facility] Oxygen (BldV) [Partial pressure] 87 mm[Hg] High [facility] Oxygen saturation in Venous blood 98 % High 45 - 75 % [facility] Oxyhemoglobin (BldV) [Mass fraction] 97.2 % High 45.0 - 75.0 % [facility] pH (BldV) 7.41 [pH] 7.33 - 7.43 pH [facility] Potassium (BldV) [Moles/Vol] 4.0 mmol/L 3.5 - 5.3 mmol/L [facility] Sodium (BldV) [Moles/Vol] 138 mmol/L 136 - 145 mmol/L [facility] Anion gap 4 (BldV) [Moles/Vol] 11.0 mmol/L Normal 10.0-25.0 [facility] Comment on above: Performed By: #### 2 9639-4 #### MATEUS CHENG ([id number]) [facility] ([facility]) [address] [place] [address] 47955 Base excess Calc (BldV) [Moles/Vol] 0.7 mmol/L Normal -2.0-3.0 [facility] Comment on above: Performed By: #### 2 3579-4 #### MATEUS CHENG ([id number]) [facility] ([facility]) [address] [place] [address] 05390 Calcium.ionized (BldV) [Moles/Vol] 1.20 mmol/L Normal 1.10-1.33 [facility] Comment on above: Performed By: #### 2 8919-4 #### MATEUS CHENG ([id number]) [facility] ([facility]) [address] [place] [address] 47529 Chloride (BldV) [Moles/Vol] 106 mmol/L Normal 98-107 [facility] Comment on above: Performed By: #### 2 3699-4 #### MATEUS CHENG ([id number]) [facility] ([facility]) [address] [place] [address] CO2 (BldV) [Partial pressure] 40 mm Hg Low 41-51 [facility] Comment on above: Performed By: #### 2 4339-4 #### MATEUS CHENG ([id number]) [facility] ([facility]) [address] [place] [address] Glucose [Mass/Vol] 101 mg/dL High 74-99 [facility] Comment on above: Performed By: #### 2 4339-4 #### MATEUS CHENG ([id number]) [facility] ([facility]) [address] [place] [address] HCO3 (Bld) [Moles/Vol] 25.4 mmol/L Normal 22.0-26.0 [facility] Comment on above: Performed By: #### 2 4339-4 #### MATEUS CHENG ([id number]) [facility] ([facility]) [address] [place] [address] Hematocrit Est (Bld) [Volume fraction] 39.0 % Normal 36.0-46.0 [facility] Comment on above: Performed By: #### 2 4339-4 #### MATEUS CHENG ([id number]) [facility] ([facility]) [address] [place] [address] 54398 Hemoglobin (Bld) [Mass/Vol] 13.0 g/dL Normal 12.0-16.0 [facility] Comment on above: Performed By: #### 2 4339-4 #### MATEUS CHENG ([id number]) [facility] ([facility]) [address] [place] [address] 58259 Inhaled oxygen concentration 21 % Normal [facility] Comment on above: Performed By: #### 2 4339-4 #### MATEUS CHENG ([id number]) [facility] ([facility]) [address] [place] [address] Lactate (BldV) [Moles/Vol] 2.1 mmol/L High 0.4-2.0 [facility] Comment on above: Performed By: #### 2 4339-4 #### MATEUS CHENG ([id number]) [facility] ([facility]) [address] [place] [address] 71366 Oxygen (BldV) [Partial pressure] 87 mm Hg High 35-45 [facility] Comment on above: Performed By: #### 2 4339-4 #### MATEUS CHENG ([id number]) [facility] ([facility]) [address] [place] [address] 29131 Oxygen saturation in Venous blood 98 % High 45-75 [facility] Comment on above: Performed By: #### 2 4339-4 #### MATEUS CHENG ([id number]) [facility] ([facility]) [address] [place] [address] 22064 Oxyhemoglobin (BldV) [Mass fraction] 97.2 % High 45.0-75.0 [facility] Comment on above: Performed By: #### 2 4339-4 #### MATEUS CHENG ([id number]) [facility] ([facility]) [address] [place] [address] 02716 pH (BldV) 7.41 [pH] Normal 7.33-7.43 [facility] Comment on above: Performed By: #### 2 4339-4 #### MATEUS CHENG ([id number]) [facility] ([facility]) [address] [place] [address] 31471 Potassium (BldV) [Moles/Vol] 4.0 mmol/L Normal 3.5-5.3 [facility] Comment on above: Performed By: #### 2 4339-4 #### MATEUS CHENG ([id number]) [facility] ([facility]) [address] [place] [address] 60195 Sodium (BldV) [Moles/Vol] 138 mmol/L Normal 136-145 [facility] Comment on above: Performed By: #### 2 4339-4 #### MATEUS CHENG ([id number]) [facility] ([facility]) [address] [place] [address] 30391 Lactateon 07-22-2024 Lactate (BldV) [Moles/Vol] 1.5 mmol/L Normal 0.4-2.0 [facility] Comment on above: Performed By: #### 5 902-2 #### MATEUS CHENG ([id number]) [facility] ([facility]) [address] [place] [address] 70429 Lactate (BldV) [Moles/Vol]on 07-22-2024 Interpretation and review of laboratory results Normal [facility] Lipaseon 07-22-2024 Lipase [Catalytic activity/Vol] 44 U/L 9 - 82 U/L [facility] Lipase [Catalytic activity/V ol]on 07-22-2024 Interpretation and review of laboratory results Normal [facility] Venipuncture immediately after or during the administration of Metamizole may lead to falsely low results. Testing should be performed immediately prior to Metamizole dosing. [facility] Magnesiumon 07-22-2024 Magnesium [Mass/Vol] 2.10 mg/dL 1.60 - 2.40 mg/dL [facility] Magnesium [Mass/Vol] 2.10 mg/dL Normal 1.60-2.40 [facility] Comment on above: Performed By: #### 1 9123-9 #### MATEUS CHENG ([id number]) [facility] ([facility]) [address] [place] [address] 40154 Natriuretic peptide B [Mass/ Vol]on 07-22-2024 Interpretation and review of laboratory results Normal [facility] Natriuretic peptide B (Bld) [Mass/Vol] 28 pg/mL 0 - 99 pg/mL [facility] <100 pg/mL - Heart failure unlikely 100-299 pg/mL - Intermediate probability of acute heart failure exacerbation. Correlate with clinical context and patient history. >=300 pg/mL - Heart Failure likely. Correlate with clinical context and patient history. BNP testing is performed using different testing methodology at [facility] than at [facility]. Direct result comparisons should only be made within the same method. [facility] Natriuretic peptide B (Bld) [Mass/Vol] 28 pg/mL Normal 0-99 [facility] Comment on above: Order Comment: <100 pg/mL - Heart failure unlikely 100-299 pg/mL - Intermediate probability of acute heart failure exacerbation. Correlate with clinical context and patient history. >=300 pg/mL - Heart Failure likely. Correlate with clinical context and patient history. BNP testing is performed using different testing methodology at [facility] than at [facility]. Direct result comparisons should only be made within the same method. Performed By: #### 3 0934-4 #### MATEUS CHENG ([id number]) [facility] ([facility]) [address] [place] [address] No Panel Informationon 07-22 Interpretation and review of laboratory results Abnormal [facility] Interpretation and review of laboratory results Normal [facility] Interpretation and review of laboratory results Normal [facility] PT Coag (PPP) [Time]on 07-22 INR Coag (PPP) [Relative time] 1.0 {INR} 0.9 - 1.1 [facility] INR Coag (PPP) [Relative time] 1.0 Normal 0.9-1.1 [facility] Comment on above: Performed By: #### 5 902-2 #### MATEUS CHENG ([id number]) [facility] ([facility]) [address] [place] [address] 64364 Phosphateon 07-22-2024 Phosphate [Mass/Vol] 3.8 mg/dL Normal 2.5-4.9 [facility] Comment on above: Result Comment: The performance characteristics of phosphorus testing in heparinized plasma have been validated by the individual laboratory site where testing is performed. Testing on heparinized plasma is not approved by the FDA; however, such approval is not necessary. Performed By: #### 2 777-1 #### MATEUS CHENG ([id number]) [facility] ([facility]) [address] [place] [address] 21243 Phosphoruson 07-22-2024 Phosphate [Mass/Vol] 3.8 mg/dL 2.5 - 4.9 mg/dL [facility] Comment on above: The performance wally acteristics of phosphorus testing in heparinized plasma have been validated by the individual laboratory site where testing is performed. Testing on heparinized plasma is not approved by the FDA; however, such approval is not necessary. Protime-INRon 07-22-2024 PT Coag (PPP) [Time] 11.5 s [facility] Triacylglycerol lipaseon Lipase [Catalytic activity/Vol] 44 U/L Normal 9-82 [facility] Comment on above: Order Comment: Venip uncture immediately after or during the administration of Metamizole may lead to falsely low results. Testing should be performed immediately prior to Metamizole dosing. Performed By: #### 3 040-3 #### MATEUS CHENG ([id number]) [facility] ([facility]) [address] [place] [address] 41507 Tropinin I.cardiac panel Hig h sensitivity methodon 07-22-2024 Interpretation and review of laboratory results Normal [facility] Less than 99th percentile of normal range [...] performed using a different testing methodology at [facility] than at other [facility]. Direct result comparisons should only be made within the same method. [facility] Interpretation and review of laboratory results Normal [facility] Less than 99th percentile of normal range [...] performed using a different testing methodology at [facility] than at [facility]. Direct result comparisons should only be made within the same method. [facility] Troponin I, High Sensitivity , Initialon 07-22-2024 Tropinin I.cardiac panel High sensitivity method 4 ng/L 0 - 13 ng/L [facility] Troponin I.cardiac panelon 0 07-22-2024 Tropinin I.cardiac panel High sensitivity method 4 ng/L Normal 0-13 [facility] Comment on above: Order Comment: [...] is performed using a differenttesting methodology at [facility] than at [facility]. Direct result comparisons should onlybe made within the same method. Performed By: #### 5 902-2 #### MATEUS CHENG ([id number]) [facility] ([facility]) [address] [place] [address] Tropinin I.cardiac panel High sensitivity method 4 ng/L Normal 0-13 [facility] Comment on above: Order Comment: [...] performed using a different testing methodology at [facility] than at other [facility]. Direct result comparisons should only be made within the same method. Performed By: #### 8 9577-1 #### MATEUS CHENG ([id number]) [facility] ([facility]) [address] [place] [address] 11470 Troponin, High Sensitivity, 1 Houron 07-22-2024 Tropinin I.cardiac panel High sensitivity method 4 ng/L 0 - 13 ng/L [facility] Urinalysis complete W Reflex Culture panel (U)on 07-22-2024 Appearance (U) Clear Clear [facility] Bilirubin (U) [Mass/Vol] Negative NEGATIVE [facility] Color (U) Colorless Abnormal Light-Yellow, Yellow, Dark-Yellow [facility] Glucose Auto test strip (U) [Mass/Vol] Normal Normal mg/dL [facility] Ketones (U) [Mass/Vol] Negative NEGATIVE mg/dL [facility] Leukocyte esterase Auto test strip Ql (U) 500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 blood pressure 127 mm[Hg] Vandana Jauregui MD Work Phone: [facility] [employer] 12-20-2024 14:55-0500 Body mass index (BMI) [Ratio] 20.67 kg/m2 Vandana Jauregui MD Work Phone: [facility] [employer] 12-20-2024 14:55-0500 Body temperature 98.71 [degF] Vandana Jauregui MD Work Phone: [facility] [employer] 12-20-2024 14:55-0500 Body weight 63.5 kg Vandana Jauregui MD Work Phone: [facility] [employer] 09-18-2024 13:20-0500 Body height 175.3 cm David Thomson [facility] Work Phone: [facility] [employer] 09-18-2024 13:20-0500 Body mass index (BMI) [Ratio] 17.72 kg/m2 David Thomson [facility] Work Phone: [facility] [employer] 09-18-2024 13:20-0500 Body temperature 98.91 [degF] David Thomson [facility] Work Phone: [facility] [employer] 09-18-2024 13:20-0500 Body weight 54.43 kg David Thomson [facility] Work Phone: [facility] [employer] 09-18-2024 13:20-0500 Diastolic blood pressure 91 mm[Hg] David Thomson [facility] [place] Work Phone: [facility] 09-18-2024 13:20-0500 Heart rate 98 /min Davidvasile Thomson [facility] [place] Work Phone: [facility] 09-18-2024 13:20-0500 Respiratory rate 19 /min David Thomson [facility] [place] Work Phone: [facility] 09-18-2024 13:20-0500 SaO2% (BldA) [Mass fraction] 98 % David Thomson [facility] [place] Work Phone: [facility] 09-18-2024 13:20-0500 Systolic blood pressure 133 mm[Hg] Davidvasile Thomson [facility] [place] Work Phone: [facility] 07-22-2024 04:55-0400 Diastolic blood pressure 80 mm[Hg] Wilmar Coker MD Work Phone: [facility] 07-22-2024 04:55-0400 Heart rate 75 /min Wilmar Coker MD Work Phone: [facility] 07-22-2024 04:55-0400 Respiratory rate 16 /min Wilmar Coker MD Work Phone: [facility] 07-22-2024 04:55-0400 SaO2% (BldA) [Mass fraction] 100 % Wilmar Coker MD Work Phone: [facility] 07-22-2024 04:55-0400 Systolic blood pressure 122 mm[Hg] Wilmar Coker MD Work Phone: [facility] 07-22-2024 01:29-0400 Body temperature Wilmar Coker MD Work Phone: [facility] Comment on above: NOTE: Patient Results are Not Corrected for Temperature 07-22-2024 01:06-0400 Body temperature [facility] Comment on above: Result Comment: NOTE: Patient Results ar e Not Corrected for Temperature Performed By: #### 2 [id number] #### MATEUS CHENG ([id number]) [facility] ([facility]) [address] [place] [id number] 07-22-2024 00:03-0400 Body height 175.3 cm Wilmar Coker MD Work Phone: [facility] 07-22-2024 00:03-0400 Body mass index (BMI) [Ratio] 18.02 kg/m2 Wilmar Coker MD Work Phone: [facility] 07-22-2024 00:03-0400 Body temperature 98.2 [degF] Wilmar Coker MD Work Phone: [facility] 07-22-2024 00:03-0400 Body weight 55.34 kg Wilmar Coker MD Work Phone: [facility] 09-07-2022 14:42-0400 Body height 175.3 cm Tray Watkins MD Work Phone: [employer] 09-07-2022 14:42-0400 Body mass index (BMI) [Ratio] 17.13 kg/m2 Tray Watkins MD Work Phone: [facility] 09-07-2022 14:42-0400 Body temperature 98.49 [degF] Tray Watkins MD Work Phone: [employer] [facility] [employer] 09-07-2022 14:42-0400 Body weight 52.62 kg Tray Watkins MD Work Phone: [facility] 09-07-2022 14:42-0400 Diastolic blood pressure 104 mm[Hg] Tray Watkins MD Work Phone: [facility] [employer] 09-07-2022 14:42-0400 Heart rate 113 /min Tray Watkins MD Work Phone: [facility] 09-07-2022 14:42-0400 Respiratory rate 16 /min Tray Watkins MD Work Phone: [facility] 09-07-2022 14:42-0400 SaO2% (BldA) [Mass fraction] 98 % Tray Watkins MD Work Phone: [facility] [employer] 09-07-2022 14:42-0400 Systolic blood pressure 157 mm[Hg] Tray Watkins MD Work Phone: [facility] [employer] 08-10-2022 14:04-0400 Body weight 52.89 kg Tk Dominguez PA-C Work Phone: [facility] 06-16-2022 12:51-0400 Diastolic blood pressure 99 mm[Hg] Didier Eldridge MD Work Phone: [facility] 06-16-2022 12:51-0400 Heart rate 98 /min Didier Eldridge MD Work Phone: [facility] 06-16-2022 12:51-0400 Respiratory rate 18 /min Didier Eldridge MD Work Phone: [facility] 06-16-2022 12:51-0400 SaO2% (BldA) [Mass fraction] 100 % Didier Eldridge MD Work Phone: [facility] 06-16-2022 12:51-0400 Systolic blood pressure 138 mm[Hg] Didier Eldridge MD Work Phone: [facility] 06-16-2022 11:19-0400 Body height 175.3 cm Didier Eldridge MD Work Phone: [facility] 06-16-2022 11:19-0400 Body mass index (BMI) [Ratio] 17.13 kg/m2 Didier Eldridge MD Work Phone: [facility] 06-16-2022 11:19-0400 Body temperature 97.7 [degF] Didier Eldridge MD Work Phone: [facility] 06-16-2022 11:19-0400 Body weight 52.62 kg Didier Eldridge MD Work Phone: [facility] 06-13-2022 19:46-0400 Body height 175.26 cm David Thomson Work Phone: [facility] Work Phone: 06-13-2022 19:46-0400 Body mass index (BMI) [Ratio] 24.37 kg/m2 David Thomson Work Phone: [facility] Work Phone: 06-13-2022 19:46-0400 Body surface area Derived from formula 1.9 m2 David Thomson Work Phone: [facility] Work Phone: 06-13-2022 19:46-0400 Body weight 74.84 kg David Thomson Work Phone: [facility] Work Phone: 06-13-2022 19:46-0400 Diastolic blood pressure 88 mm[Hg] David Thomson Work Phone: [facility] Work Phone: 06-13-2022 19:46-0400 Respiratory rate 16 /min David Thomson Work Phone: [facility] Work Phone: 06-13-2022 19:46-0400 Systolic blood pressure 140 mm[Hg] David Thosmon Work Phone: [facility] Work Phone: 06-07-2022 15:01-0400 Body temperature 98.49 [degF] Davidadriana Thomson [facility] Work Phone: [facility] [employer] 06-07-2022 15:01-0400 Diastolic blood pressure 98 mm[Hg] David Thomson APRN - [place] Work Phone: [facility] Admitly 06-07-2022 15:01-0400 Heart rate 106 /min David Thomson APRN - [place] Work Phone: [facility] Admit[facility] 06-07-2022 15:01-0400 Respiratory rate 18 /min David Thomson APRN - [place] Work Phone: [facility] Ad[facility] 06-07-2022 15:01-0400 SaO2% (BldA) [Mass fraction] 99 % David Thomson APRN - [place] Work Phone: [facility] Admit[facility] 06-07-2022 15:01-0400 Systolic blood pressure 151 mm[Hg] David Thomson APRN - [place] Work Phone: [facility] Ad[facility] 06-03-2022 20:57-0400 Diastolic blood pressure 96 mm[Hg] Davidvasile Thomson APRN - [place] Work Phone: [facility] Ad[facility] 06-03-2022 20:57-0400 Systolic blood pressure 156 mm[Hg] David Thomson APRN - [place] Work Phone: [facility] Admit[facility] 06-03-2022 20:56-0400 Body height 175.3 cm David Thomson APRN - [place] Work Phone: [facility] Ad[facility] 06-03-2022 20:56-0400 Body mass index (BMI) [Ratio] 17.72 kg/m2 David Thomson APRN - [place] Work Phone: [facility] Ad[facility] 06-03-2022 20:56-0400 Body temperature 98.6 [degF] David Thomson APRN - [place] Work Phone: [facility] Ad[facility] 06-03-2022 20:56-0400 Body weight 54.43 kg David Thomson APRN - [place] Work Phone: [facility] 06-03-2022 20:56-0400 Heart rate 102 /min Daivd Thomson APRN - [place] Work Phone: [facility] 06-03-2022 20:56-0400 Respiratory rate 16 /min David Thomson APRN - [place] Work Phone: [facility] 06-03-2022 20:56-0400 SaO2% (BldA) [Mass fraction] 99 % David Thomson APRN - [place] Work Phone: [facility] Ad[facility] 03-31-2022 11:25-0400 Diastolic blood pressure 99 mm[Hg] Didier Eldridge MD Work Phone: [facility] 03-31-2022 11:25-0400 Heart rate 88 /min Didier Eldridge MD Work Phone: [facility] 03-31-2022 11:25-0400 Respiratory rate 18 /min Didier Eldridge MD Work Phone: [facility] 03-31-2022 11:25-0400 SaO2% (BldA) [Mass fraction] 100 % Didier Eldridge MD Work Phone: [facility] 03-31-2022 11:25-0400 Systolic blood pressure 136 mm[Hg] Didier Eldridge MD Work Phone: [facility] 03-31-2022 10:34-0400 Body height 175.3 cm Didier Eldridge MD Work Phone: [facility] 03-31-2022 10:34-0400 Body mass index (BMI) [Ratio] 16.83 kg/m2 Dideir Eldridge MD Work Phone: [facility] 03-31-2022 10:34-0400 Body temperature 97.9 [degF] Didier Eldridge MD Work Phone: [facility] 03-31-2022 10:34-0400 Body weight 51.71 kg Didier Eldridge MD Work Phone: [facility] 11-11-2021 20:06-0500 Diastolic blood pressure 81 mm[Hg] [facility] 11-11-2021 20:06-0500 Heart rate 96 /min [facility] 11-11-2021 20:06-0500 Respiratory rate 16 /min [facility] 11-11-2021 20:06-0500 SaO2% (BldA) [Mass fraction] 100 % [facility] 20:06-0500 Systolic blood pressure 124 mm[Hg] [facility] 11-11-2021 17:52-0500 Body height 175.3 cm [facility] 11-11-2021 17:52-0500 Body mass index (BMI) [Ratio] 15.8 kg/m2 [facility] 11-11-2021 17:52-0500 Body temperature 98.1 [degF] [facility] 11-11-2021 17:52-0500 Body weight 48.53 kg [facility] Encounters Encounter Date Encounter Type Care Provider Facility Start: 06-23-2025 End: 06-27-2025 ambulatory TIFFANIE JULIEN [facility] Start: 06-23-2025 End: 06-27-2025 Evaluation and management of inpatient Tiffanie Julien MD Work Phone: [facility] Start: 03-23-[address] [facility] Start: 03-04-2025 End: 03-04-2025 ambulatory Kan Post [facility] Work Phone: Start: 03-04-2025 End: 03-04-2025 Departed Referred Kan Post MD Work Phone: [facility] Start: 03-04-2025 End: 03-04-2025 ambulatory [facility] Work Phone: Start: 03-04-2025 End: 03-04-2025 Patient encounter procedure [facility] Work Phone: Start: 02-23-2025 ambulatory [facility] Start: 01-26-2025 ambulatory [facility] Start: 01-13-2025 End: 01-13-2025 Emergency department patient visit Denilson Cervantes MD Work Phone: [facility] Emergency Department Comment on above: Atypical chest pain (Primary Dx) Start: 12-20-2024 End: 12-20-2024 Emergency department patient visit Vandana Jauregui MD Work Phone: [facility] Emergency Department Comment on above: Radiculopathy, unspe cified spinal region (Primary Dx) Start: 12-18-2024 ambulatory [facility] Start: 12-04-2024 ambulatory [facility] Start: 11-28-2024 ambulatory [facility] Start: 11-21-2024 ambulatory [facility] Start: 11-14-2024 ambulatory [facility] Start: 11-03-2024 End: 11-03-2024 [facility] Start: 11-03-2024 End: 11-03-2024 Subsequent hospital visit by physician David Thomson APRN - [place] Work Phone: [facility] Laboratory Start: 10-17-2024 End: 10-17-2024 ambulatory [facility] Start: 10-17-2024 End: 10-17-2024 Subsequent hospital visit by physician David Thomson APRN - [place] Work Phone: [facility] Laboratory Start: 09-18-2024 End: 09-18-2024 Emergency department patient visit [facility] Comment on above: Acute pain of left k nee (Primary Dx); Abrasion, left knee, initial encounter Start: 07-21-2024 End: 07-22-2024 Emergency department patient visit Wilmar Coker MD Work Phone: [facility] Medicine Comment on above: Acute nonintractable headache, unspecified headache type (Primary Dx); Chest pain, unspecified type Start: 08-22-2023 End: 08-22-2023 Emergency department patient visit DAVID ALIX Facility:[facility] Start: 05-02-2023 Telephone encounter Darrin r M Johan NYE Work Phone: Neurology Comment on above: Patient Update Start: 05-01-2023 End: 05-01-2023 ambulatory Hal Prado Work Phone: Neurology Comment on above: Concussion with loss of consciousness, subsequent encounter (Primary Dx); Memory loss Start: 05-01-2023 End: 05-01-2023 Telemedicine consultation with patient Hal Pardo Work Phone: [facility] Start: 09-07-2022 End: 09-07-2022 Emergency department patient visit Tray Watkins MD Work Phone: [facility] Comment on above: Foreign body in vagi na, initial encounter (Primary Dx) Start: 09-01-2022 End: 09-01-2022 ambulatory AMY MACARIO Facility:[facility] Start: 08-10-2022 End: 08-10-2022 Patient encounter procedure [...] 08-03-2022 Emergency department patient visit DANY RED Facility:[facility] Start: 06-16-2022 End: 06-16-2022 Subsequent hospital visit by physician Didier Eldridge MD Work Phone: [facility] [place] Start: 06-13-2022 Tobacco use cessatio n intermediate 3-10 minutes David Thomson Work Phone: [facility] Work Phone: Start: 06-07-2022 End: 06-07-2022 Emergency department patient visit David Thomson [facility] [place] Work Phone: [facility] ED Comment on above: Urticaria (Primary D x); Rash and other nonspecific skin eruption Start: 06-03-2022 End: 06-03-2022 Emergency department patient visit David Thomson [facility] [place] Work Phone: [facility] ED Start: 03-31-2022 End: 03-31-2022 Subsequent hospital visit by physician Didier Eldridge MD Work Phone: [facility] [place] Comment on above: Melena; Constipation, unspecified constipation type Start: 03-16-2022 End: 03-18-2022 Subsequent hospital visit by physician Ny Mri Room 1 [facility] MRI Comment on above: Cervical radiculopat hy; Cervicalgia; Left arm weakness Start: 02-13-2022 End: 02-15-2022 Subsequent hospital visit by physician Ny Ct Room 1 [facility] CT Scan Comment on above: Abnormal CT scan, ira moore Start: 02-03-2022 End: 02-05-2022 Subsequent hospital visit by physician Ny Xray Room 7 [facility] Radiology Comment on above: Kidney stone Start: 11-11-2021 End: 11-11-2021 Emergency department patient visit DANY RED Facility:[facility] Start: 11-11-2021 End: 11-11-2021 Emergency department patient visit [facility] ED Comment on above: Cellulitis of finger of right hand (Primary Dx) Procedures Date Procedure Procedure Detail Performing Clinician Start: 06-27-2025 Anion gap [Moles/Vol] Lionel HUDSON Work Phone: Start: 06-27-2025 Basic metabolic panel calcium total Carl HUDSON Work Phone: Start: 06-27-2025 GLOMERULAR FILTRATION RATE, ESTIMATED Lionel Diglio PA Work Phone: Start: 06-26-2025 Anion gap [Moles/Vol] Lionel Diglio PA Work Phone: Start: 06-26-2025 Basic metabolic panel calcium total Carl is Diglio PA Work Phone: Start: 06-26-2025 GLOMERULAR FILTRATION RATE, ESTIMATED Lionel Diglio PA Work Phone: Start: 06-25-2025 Anion gap [Moles/Vol] Lionel Diglio PA Work Phone: Start: 06-25-2025 Basic metabolic panel calcium total Carl is Diglio PA Work Phone: Start: 06-25-2025 GLOMERULAR FILTRATION RATE, ESTIMATED Lionel Diglio PA Work Phone: Start: 06-24-2025 Anion gap [Moles/Vol] Lionel Diglio PA Work Phone: Start: 06-24-2025 Basic metabolic panel calcium total Carl is Diglio PA Work Phone: Start: 06-24-2025 GLOMERULAR FILTRATION RATE, ESTIMATED Lionel Diglio PA Work Phone: Start: 06-23-2025 Radex spine 1 view specify level Tiffanie Julien MD Work Phone: Start: 06-23-2025 End: 06-23-2025 Arthrodesis posterior/posterolateral lumbar Tiffanie Julien MD Work Phone: Start: 06-23-2025 End: 06-23-2025 Autograft spine surgery local from same incision Tiffanie Julien MD Work Phone: Start: 06-23-2025 End: 06-23-2025 Mary facetectomy & foramotomy 1 segment lumbar Tiffanie Julien MD Work Phone: Start: 06-23-2025 End: 06-23-2025 Blood typing serologic abo Tiffanie Julien MD Work Phone: Start: 01-13-2025 Basic metabolic panel calcium total Yoseph Cervantes MD Work Phone: Start: 01-13-2025 Ecg routine ecg w/least 12 lds w/i&r Denilson Cervantes MD Work Phone: Start: 12-20-2024 Comprehensive metabolic panel Vandana Lopes dd, MD Work Phone: Start: 12-20-2024 Ecg routine ecg w/least 12 lds w/i&r Vandana Jauregui MD Work Phone: Start: 11-03-2024 Comprehensive metabolic panel Allen Patel marilee [facility] [place] Work Phone: Start: 11-03-2024 Hepatitis b surf antibody hbsab [facility]na hayes [facility] [place] Work Phone: Start: 11-03-2024 T. PALLIDUM AB Allen Juarez [facility] [place] Work Phone: Start: 10-17-2024 Iaadiadoo influenza Allen Juarez [facility] [place] Work Phone: Start: 09-18-2024 Radiologic examination knee 1/2 views Maddie Buenrostro [employer]-C Work Phone: Start: 07-22-2024 Assay of lactate [...] Phone: Start: 06-07-2022 Comprehensive metabolic panel Tray Steve seema HUDSON-C Work Phone: Start: 03-31-2022 Urine test visual color cmprsn meths Didier Eldridge MD Work Phone: Start: 03-31-2022 Colonoscopy Didier Eldridge MD Work Phone: Start: 03-31-2022 Esophagogastroduodenoscopy Didier daly MD Work Phone: Start: 03-16-2022 Mri spinal canal cervical w/o contrast matrl David Thomson [facility] [place] Work Phone: Start: 02-13-2022 Ct abdomen & pelvis w/o contrst 1/> body re Catracho Villanueva MD Work Phone: Start: 02-03-2022 Radiologic exam abdomen 1 view Catracho Richardson MD Work Phone: Start: 11-11-2021 Comprehensive metabolic panel Berta HUDSON Work Phone: Plan of Treatment Date Care Activity Detail Author Start: 08-22-2033 DTaP/Tdap/Td vaccine (2 - Td or Tdap) DTaP/Tdap/Td vaccine (2 - Td or Tdap) [facility] Start: 08-22-2033 DTaP/Tdap/Td Vaccines (2 - Td or Tdap) DTaP/Tdap/Td Vaccines (2 - Td or Tdap) [facility] Start: 2033 Zoster Vaccines (1 of 2) Zoster Vaccines (1 of 2) [facility] Start: 12-31-2026 Lipid panel Lipids [facility] Start: 07-03-2025 End: 07-03-2025 Patient encounter procedure 07/03/2025 10:20 AM EDT Office Visit [facility] [address] [facility] [address] [place] [id number] Laura Urbano MD [address] [facility] [address] [place] [id number] [facility] Start: 06-05-2025 Influenza vaccination Flu vaccine (#1) [facility] Start: 03-04-2025 Urine culture [facility] Start: 03-04-2025 Bacteria identified in Urine by Culture Urine Culture [facility] Start: 07-06-2024 COVID-19 Vaccine ( season) COVID-19 Vaccine ( season) [facility] Start: 07-06-2024 COVID-19 Vaccine ( season) COVID-19 Vaccine ( season) [facility] Start: 07-06-2024 Influenza vaccination Influenza Vaccine (#1) [facility] Start: 06-05-2024 Influenza vaccination Flu vaccine (#1) [facility] Start: 11-14-2023 Depression Monitoring Depression Monitoring [facility] Start: 2023 Screening for malignant neoplasm of breast [facility] Start: 07-06-2023 Influenza vaccination INFLUENZA (Season Ended) [facility] Start: 03-02-2023 Depression Monitoring Depression Monitoring [facility] Start: 11-05-2022 DEPRESSION ASSESSMENT DEPRESSION ASSESSMENT [facility] Start: 10-05-2022 End: 10-05-2022 Patient encounter procedure 10/05/2022 Office Visit Family Medicine David Thomson [facility] [place] [address] [place] [address] [facility] Start: 09-01-2022 End: 09-01-2022 Patient encounter procedure 09/01/2022 Office Visit Family Medicine David Thomson, [facility] [place] [address] [place] [address] [facility] Start: 07-06-2022 Influenza vaccination [facility] Start: 06-19-2022 End: 06-19-2022 Patient encounter procedure 06/19/2022 Office Visit Gastroenterology Dulce Mackay, [facility] [place] [address] [place] [address] [facility] Gastroenterology Start: 06-16-2022 End: 06-16-2022 Admission to same day surgery center 06/16/2022 Surgery Endoscopy Didier Eldridge MD [address] [place] [address] COLONOSCOPY DIAGNOSTIC [facility] OR Comment on above: COLONOSCOPY DIAGNOSTIC Start: 06-16-2022 Subsequent hospital visit by physician 06/16/2022 Hospital Encounter Endoscopy Didier Eldridge MD [address] [place] [address] [facility] OR Start: 06-16-2022 End: 06-16-2022 Colonoscopy flx dx w/collj spec when pfrmd [facility] Start: 06-05-2022 Influenza vaccination Flu vaccine (#1) [facility] Start: 05-12-2022 Depression Monitoring Depression Monitoring [facility] Start: 05-12-2022 Depression Screen Depression Screen [facility] Start: 04-13-2022 End: 04-13-2022 Patient encounter procedure 04/13/2022 Office Visit Gastroenterology Dulce Mackay, [facility] [place] [address] [place] [address] [facility] Gastroenterology Start: 04-11-2022 End: 04-11-2022 Patient encounter procedure 04/11/2022 Initial consult Pain Management Kati Perez MD [address] [facility] [address] [address] [facility] Start: 03-31-2022 End: 03-31-2022 Admission to same day surgery center 03/31/2022 Surgery Endoscopy Didier Eldridge MD [address] [place] [address] EGD ESOPHAGOGASTRODUODENOSCOPY [facility] Comment on above: EGD ESOPHAGOGASTRODUODENOSCOPY Start: 03-31-2022 Subsequent hospital visit by physician 03/31/2022 Hospital Encounter Endoscopy Didier Eldridge MD [address] [place] [address] [facility] Start: 03-31-2022 End: 03-31-2022 Colonoscopy flx dx w/collj spec when pfrmd [facility] Start: 03-31-2022 End: 03-31-2022 Esophagogastroduodenoscopy transoral diagnostic [facility] Start: 03-08-2022 End: 03-08-2022 Patient encounter procedure 03/08/2022 Office Visit Pulmonology Alfredo Gómez MD [address] [place] [address] [facility] Pulmonology Start: 03-02-2022 End: 03-02-2022 Patient encounter procedure 03/02/2022 Office Visit Family Medicine David Thomson, [facility] [place] [address] [place] [address] [facility] Start: 02-22-2022 End: 02-22-2022 Patient encounter procedure 02/22/2022 Office Visit Pulmonology Alfredo Gómez MD [address] [place] [address] [facility] Pulmonology Start: 02-21-2022 End: 02-21-2022 Patient encounter procedure 02/21/2022 Office Visit Family Medicine David Thomson, [facility] [place] [address] [place] [address] [facility] Start: 02-16-2022 End: 02-16-2022 Patient encounter procedure 02/16/2022 Office Visit Gastroenterology Didier Eldridge MD [address] [place] [address] [facility] Gastroenterology Start: 02-13-2022 End: 02-13-2022 Patient encounter procedure 02/13/2022 Appointment Radiology [facility] CT Scan Start: 11-05-2021 DEPRESSION ASSESSMENT DEPRESSION ASSESSMENT [facility] Start: 07-06-2021 Influenza vaccination Flu vaccine (#1) [facility] Start: 2013 HPV TESTING HPV TESTING [facility] Start: 2013 Screening for malignant neoplasm of cervix [facility] Start: 2004 PAP TESTING PAP TESTING [facility] Start: 2004 Screening for malignant neoplasm of cervix [facility] Start: 2002 DTaP/Tdap/Td vaccine (1 - Tdap) DTaP/Tdap/Td vaccine (1 - Tdap) [facility] Start: 2002 Hepatitis B vaccine (1 of 3 - 19+ 3-dose series) Hepatitis B vaccine (1 of 3 - 19+ 3-dose series) [facility] Start: 2002 Hepatitis B Vaccines (1 of 3 - 19+ 3-dose series) Hepatitis B Vaccines (1 of 3 - 19+ 3-dose series) [facility] Start: 2002 Pneumococcal 0-49 years Vaccine (1 of 2 - PCV) Pneumococcal 0-49 years Vaccine (1 of 2 - PCV) [facility] Start: 2002 Urine microalbumin profile DTAP,TDAP,TD (1 - Tdap) [facility] Start: 2001 Hepatitis C screening [facility] Start: 2001 HEPATITIS C SCREENING HEPATITIS C SCREENING [facility] Start: 2001 HIV SCREENING HIV SCREENING [facility] Start: 1998 HIV screening HIV screen [facility] Start: 1996 Varicella vaccination Varicella Vaccines (1 of 2 - 13+ 2-dose series) [facility] Start: 1996 Varicella vaccine (1 of 2 - 13+ 2-dose series) Varicella vaccine (1 of 2 - 13+ 2-dose series) [facility] Start: 1995 Depression Monitoring Depression Monitoring [facility] Start: 1989 PNEUMOCOCCAL (1 - PCV) PNEUMOCOCCAL (1 - PCV) [facility] Start: 1989 Pneumococcal 0-64 years Vaccine (1 - PCV) Pneumococcal 0-64 years Vaccine (1 - PCV) [facility] Start: 1989 Pneumococcal 0-64 years Vaccine (1 of 2 - PCV) Pneumococcal 0-64 years Vaccine (1 of 2 - PCV) [facility] Start: 1989 Pneumococcal 0-64 years Vaccine (1 of 2 - PPSV23) Pneumococcal 0-64 years Vaccine (1 of 2 - PPSV23) [facility] Start: 1989 Pneumococcal Vaccine: Pediatrics (0 to 5 Years) and At-Risk Patients (6 to 64 Years) (1 of 2 - PCV) Pneumococcal Vaccine: Pediatrics (0 to 5 Years) and At-Risk Patients (6 to 64 Years) (1 of 2 - PCV) [facility] Start: 1988 COVID-19 Vaccine (1) COVID-19 Vaccine (1) [facility] Start: 1984 MMR Vaccines (1 of 1 - Standard series) MMR Vaccines (1 of 1 - Standard series) [facility] Start: 1984 Varicella vaccine (1 of 2 - 2-dose childhood series) Varicella vaccine (1 of 2 - 2-dose childhood series) [facility] Start: 01-14-1984 COVID-19 Vaccine (#1) COVID-19 Vaccine (#1) [facility] Start: 1983 HEPATITIS B (1 of 3 - 3-dose series) HEPATITIS B (1 of 3 - 3-dose series) [facility] Start: 1983 Hepatitis C screening Hepatitis C screen [facility] Start: 1983 HIV screening HIV Screening [facility] Start: 1983 Lipid panel Lipid Panel [facility] Start: 1983 Yearly Adult Physical Yearly Adult Physical [facility] End: 07-22-2024 Bacteria identified in Urine by Culture Urine Culture Microbiology Routine Once (Lab) for 1 Occurrences starting 07/22/2024 until 07/22/2024 [facility] Work Phone: Comment on above: Once (Lab) for 1 Occurrences starting until 07/22/2024 Bacteria identified in Urine by Culture Urine Culture Microbiology STAT 07/22/2024 1:27 AM [facility] Work Phone: End: 06-30-2025 Basic metabolic 2000 panel - Serum or Plasma Basic Metabolic Panel Lab Routine Daily for 1 Weeks starting 06/24/2025 until 06/30/2025, 4 completed [facility] Comment on above: Daily for 1 Weeks starting 06/24/2025 un til 06/30/2025, 4 completed End: 07-22-2024 Choriogonadotropin ( test) [Presence] in Urine POCT , urine Point of Care Testing Routine Once (Lab) for 1 Occurrences starting 07/22/2024 until 07/22/2024 [facility] Work Phone: Comment on above: Once (Lab) for 1 Occurrences starting until 07/22/2024 Choriogonadotropin ( test) [Presence] in Urine POCT , urine Point of Care Testing Routine 07/22/2024 1:30 AM [facility] Work Phone: End: 07-22-2024 ECG 12 lead ECG 12 lead ECG STAT Once for 1 Occurrences starting 07/22/2024 until 07/22/2024 [facility] Service [facility] Work Phone: Comment on above: Once for 1 Occurrences starting 07/22/20 24 until 07/22/2024 ECG 12 lead ECG 12 lead ECG STAT 07/22/2024 1:14 AM [facility] Work Phone: EKG 12 Lead EKG 12 Lead ECG STAT 12/20/2024 3:00 PM EST [facility] EKG 12 Lead EKG 12 Lead ECG STAT 01/13/2025 6:12 PM EDT [facility] End: 07-22-2024 Extra Urine Rachel Tube Extra Urine [facility] Lab Timed Once for 1 Occurrences starting 07/22/2024 until 07/22/2024 [facility] Work Phone: Comment on above: Once for 1 Occurrences starting 07/22/20 24 until 07/22/2024 Extra Urine Rachel Tube Extra Urin e [facility] Lab STAT 07/22/2024 1:27 AM EDT [facility] Work Phone: End: 06-30-2025 Hemoglobin and Hematocrit Hemoglobin and Hematocrit Lab Routine Daily for 1 Weeks starting 06/24/2025 until 06/30/2025, 4 completed [facility] Comment on above: Daily for 1 Weeks starting 06/24/2025 un til 06/30/2025, 4 completed End: 04-30-2024 HOME SLEEP APNEA TEST (HSAT) HOME SLEEP APNEA TEST (HS AT) Procedures Routine Concussion with loss of consciousness, subsequent encounter Memory loss 1 Occurrences starting 05/01/2023 until 04/30/2024 [facility] Work Phone: Comment on above: 1 Occurrences starting 05/01/2023 until 04/30/2024 Initiate RT Inhaler- Nebulizer Bronchodilator Protocol Initiate RT Inhaler-Nebulizer Bronchodilator Protocol Respiratory Care Routine As Needed until discontinued starting 06/23/2025 [facility] Work Phone: Comment on above: As Needed until discontinued starting Oxygen therapy [[place] [facility] Data Set] Initiate Oxygen Therapy Protocol Respiratory Care Routine As Needed until discontinued starting 06/23/2025 [facility] Comment on above: As Needed until discontinued starting End: 01-13-2025 Portable XR Chest AP single view [employer] Comment on above: Once for 1 Occurrences starting 01/14/20 until 01/13/2025 SCANNED COLONOSCOPY REPORT SCANN ED COLONOSCOPY REPORT Procedures Ordered: 06/16/2022 [facility] Work Phone: Comment on above: Ordered: 06/16/2022 Spirometry panel Incentive britta metry Respiratory Care Routine Every 2hr while awake until discontinued starting 06/23/2025 [facility] Comment on above: Every 2hr while awake until discontinued starting 06/23/2025 Surgical Pathology Surgical Path ology Lab Routine Melena Constipation, unspecified constipation type Release Upon Ordering for 1 Occurrences starting 03/31/2022 [facility] Work Phone: Comment on above: Release Upon Ordering for 1 Occurrences starting 03/31/2022 End: 07-22-2024 Urinalysis complete W Reflex Culture panel - Urine Urinalysis with Reflex Culture and Microscopic Lab STAT STAT (Lab) for 1 Occurrences starting 07/22/2024 until 07/22/2024 [facility] Work Phone: Comment on above: STAT (Lab) for 1 Occurrences starting until 07/22/2024 Urinalysis complete W Reflex Culture panel - Urine Urinalysis with Reflex Culture and Microscopic Lab STAT 07/22/2024 1:27 AM EDT [facility] Work Phone: End: 09-09-2023 XR ANKLE GENERAL 3V AP/LAT/OBL LEFT XR ANKLE GENERAL 3V AP/LAT/OBL LEFT Radiology Routine Sprain of anterior talofibular ligament of left ankle, initial encounter Sprain of posterior talofibular ligament of left ankle, initial encounter Sprain of deltoid ligament of left ankle, initial encounter Closed nondisplaced avulsion fracture of left talus, initial encounter 1 Occurrences starting 08/10/2022 until 09/09/2023 [facility] Work Phone: Comment on above: 1 Occurrences starting 08/10/2022 until 09/09/2023 End: 11-11-2021 XR FINGER RIGHT (MIN 2 VIEWS) [facility] Work Phone: Comment on above: Once for 1 Occurrences starting 11/11/19 until 11/11/2021 [facility] Payers Date Payer Category Payer Self-pay 2024 Unknown [id number] 2023 Unknown [id number] 2021 Medicaid [id number] 2021 Unknown 2014 Medicaid [id number] 1. [id number] 1983 Unknown [id number] 2.16.8 [id number] 1983 Unknown [id number] 2.16.8 [id number] 1983 Unknown [id number] 2.16.8 [id number] 1983 Unknown [id number] 2.16.8 [id number] 1983 Unknown [id number] 2.16.8 [id number] 1983 Unknown [id number] 2.16.8 40.1.458378.3.579.2.983 1983 Unknown [id number] 2.16.8 40.1.646252.3.579.2.983 1983 Unknown [id number] 2.16.8 40.1.754138.3.579.2.983 1983 Unknown [id number] 2.16.8 40.1.402867.3.579.2.983 1983 Unknown [id number] 2.16.8 40.1.325803.3.579.2.983 1983 Unknown [id number] 2.16.8 40.1.094111.3.579.2.983 1983 Unknown [id number] 2.16.8 [id number] 1983 Unknown [id number] 2.16.8 [id number] 1983 Unknown [id number] 2.16.8 [id number] 1983 Unknown [id number] 2.16. [id number] Unknown [id number] 2.16.8 [id number] Social History Date Type Detail Facility Start: 05-12-2021 End: 06-23-2025 Tobacco smoking status [facility] Smokes tobacco daily [employer] Phone: Start: 05-12-2021 End: 06-23-2025 Cigarettes smoked current (pack per day) - Reported 0.5 [facility] Start: 11-11-2021 End: 06-24-2025 Alcohol intake Lifetime non-drinker (finding) [employer] Phone: Start: 1985 Sex Assigned At Not on file [facility] Phone: Start: 01-24-2022 End: 07-22-2024 Exposure to SARS-CoV-2 (event) Not sure [facility] Start: 05-12-2021 End: 06-23-2025 Tobacco use and exposure Smokeless tobacco non-user [employer] Phone: Start: 11-15-2021 End: 11-22-2021 History SDOH Alcohol Frequency 1 [employer] Phone: Start: 11-15-2021 History SDOH Financial 5 [employer] Phone: Start: 07-22-1999 History of tobacco use Cigarette Smo ker [employer] Phone: Start: 03-21-2022 End: 03-31-2022 Exposure to SARS-CoV-2 (event) Yes [facility] [employer] Phone: Start: 06-07-2022 End: 09-07-2022 History SDOH Alcohol Std Drinks 0 [facility] Work Phone: Start: 05-01-2023 Alcohol intake Ex-drinker (finding) [facility] Start: 09-18-2024 End: 06-23-2025 Alcohol Use Disorder Identification Test - Consumption [AUDIT-C] [employer] How often to you hav e a drink containing alcohol? Never [facility] How many standard dr inks containing alcohol do you have on a typical day? Patient does not drink [facility] [employer] (I/We) worried wheth er (my/our) food would run out before (I/we) got money to buy more. Never true [facility] [employer] Start: 05-12-2021 End: 03-06-2025 Sex Female (finding) [facility] Start: 03-04-2025 [facility] Start: 1985 Sex Assigned At Female F [facility] Start: 06-15-2025 Tobacco Comment Less then 1 pa ck per week ( 06/15/25) [facility] Medical Equipment Procedure Code Equipment Code Equipment Origin al Text Equipment Identifier Dates Set Screw 5.5-6. 0 - [id number] Start: 06-23-2025 Screw Poly Solid 6.5x40 - [id number] Start: 06-23-2025 Screw Poly Solid 6.5x45 - [id number] Start: 06-23-2025 Roberto Ti Prebent 5.5x35 - [id number] Start: 06-23-2025 Clinical Notes 11-11-2021 to 06-27-2025 Nina Herbert RN - 06/27/2025 2:50 PM Lionel Polanco PA - 06/27/2025 10:21 AM Dany Newsome RN - 06/26/2025 2:28 PM Lionel Polanco PA - 06/26/2025 5:59 AM EDT Note Date & Type Note Facility 06-27-2025 History of Present illness Narrative AVS reviewed with patient. All questions answered. Patient taken to [facility] via wheelchair for discharge home. Department of Orthopedic Surgery Spine Service Attending Progress Note Subjective: POD#4 no new issues, drain outputs decreased Vitals VITALS: BP 104/75 Pulse 94 Temp 98.2 F (36.8 C) (Oral) Resp 16 Ht 1.753 m (5' 9 ) Wt 66.2 kg (146 lb) LMP 06/01/2025 SpO2 100% BMI 21.56 kg/m 24HR INTAKE/OUTPUT: Intake/Output Summary (Last 24 hours) at 06/27/2025 1021 Last data filed at 06/27/2025 0348 Gross per 24 hour Intake 550 ml Output 200 ml Net 350 ml URINARY CATHETER OUTPUT (Gentile): DRAIN/TUBE OUTPUT: Closed/Suction Drain Left Back Accordion-Output (ml): 40 ml Closed/Suction Drain Right Back Accordion-Output (ml): 10 ml PHYSICAL EXAM: Orientation: alert and oriented to person, place and time Incision: dressing in place, clean, dry, intact Lower Extremity Motor : quadriceps, extensor hallucis longus, dorsiflexion, plantarflexion 5/5 bilaterally Lower Extremity Sensory: Intact L1-S1 LABS: HgB: Lab Results Component Value Date/Time HGB 12.8 06/27/2025 06:00 AM Hemoglobin/Hematocrit: Lab Results Component Value Date/Time HGB 12.8 06/27/2025 06:00 AM HCT 39.8 06/27/2025 06:00 AM BMP: Lab Results Component Value Date/Time NA 138 06/27/2025 06:00 AM K 3.8 06/27/2025 06:00 AM CL 102 06/27/2025 06:00 AM CO2 24 06/27/2025 06:00 AM BUN 12 06/27/2025 06:00 AM CREATININE 0.7 06/27/2025 06:00 AM CALCIUM 9.3 06/27/2025 06:00 AM GFRAA >60.0 06/07/2022 03:30 PM LABGLOM > 90 06/27/2025 06:00 AM GLUCOSE 105 06/27/2025 06:00 AM ASSESSMENT AND PLAN: Post operative day 4 status post L5-S1 decompression and fusion 1: Monitor labs. Remove drains 2: Activity Level: As tolerated. PT/OT, back brace when ambulating 3: Pain Control: Good 4: Discharge Planning: Home today BECCA Muñoz Updated Lionel Daley about no home health agency accepting at this time. Ok to cancel discharge order if no facility accepting today and she will round to discuss outputs and drains tomorrow with patient. Department of Orthopedic Surgery Spine Service Attending Progress Note Subjective: POD#3 patient doing very well, reporting now wanting to go home. +BM. Vitals VITALS: BP 99/71 Pulse 80 Temp 98.2 F (36.8 C) (Oral) Resp 16 Ht 1.753 m (5' 9 ) Wt 66.2 kg (146 lb) LMP 06/01/2025 SpO2 95% BMI 21.56 kg/m 24HR INTAKE/OUTPUT: Intake/Output Summary (Last 24 hours) at 06/26/2025 0559 Last data filed at 06/26/2025 0357 Gross per 24 hour Intake 1120 ml Output 215 ml Net 905 ml URINARY CATHETER OUTPUT (Gentile): DRAIN/TUBE OUTPUT: Closed/Suction Drain Left Back Accordion-Output (ml): 30 ml Closed/Suction Drain Right Back Accordion-Output (ml): 60 ml PHYSICAL EXAM: Orientation: alert and oriented to person, place and time Incision: dressing in place, clean, dry, intact Lower Extremity Motor : quadriceps, extensor hallucis longus, dorsiflexion, plantarflexion 5/5 bilaterally Lower Extremity Sensory: Intact L1-S1 LABS: HgB: Lab Results Component Value Date/Time HGB 11.2 06/25/2025 06:10 AM Hemoglobin/Hematocrit: Lab Results Component Value Date/Time HGB 11.2 06/25/2025 06:10 AM HCT 34.1 06/25/2025 06:10 AM BMP: Lab Results Component Value Date/Time NA 140 06/25/2025 06:10 AM K 4.0 06/25/2025 06:10 AM CL 105 06/25/2025 06:10 AM CO2 26 06/25/2025 06:10 AM BUN 10 06/25/2025 06:10 AM CREATININE 0.7 06/25/2025 06:10 AM CALCIUM 8.4 06/25/2025 06:10 AM GFRAA >60.0 06/07/2022 03:30 PM LABGLOM > 90 06/25/2025 06:10 AM GLUCOSE 108 06/25/2025 06:10 AM ASSESSMENT AND PLAN: Post operative day 3 status post L5-S1 decompression and fusion 1: Monitor labs and drain output 2: Activity Level: As tolerated. PT/OT, back brace when ambulating 3: Pain Control: Good 4: Discharge Planning: Home today - will need for drain care BECCA Muñoz Department of Orthopedic Surgery Spine Service Attending Progress Note Subjective: POD#2 back pain controlled, radicular sx improved. Numbness in foot improved. Ambulated with PT. Vitals VITALS: BP 98/69 Pulse 76 Temp 98.8 F (37.1 C) (Oral) Resp 16 Ht 1.753 m (5' 9 ) Wt 66.2 kg (146 lb) LMP 06/01/2025 SpO2 98% BMI 21.56 kg/m 24HR INTAKE/OUTPUT: Intake/Output Summary (Last 24 hours) at 06/25/2025 0658 Last data filed at 06/25/2025 0330 Gross per 24 hour Intake 1960 ml Output 360 ml Net 1600 ml URINARY CATHETER OUTPUT (Gentile): DRAIN/TUBE OUTPUT: Closed/Suction Drain Left Back Accordion-Output (ml): 30 ml Closed/Suction Drain Right Back Accordion-Output (ml): 60 ml PHYSICAL EXAM: Orientation: alert and oriented to person, place and time Incision: dressing in place, clean, dry, intact Lower Extremity Motor : quadriceps, extensor hallucis longus, dorsiflexion, plantarflexion 5/5 bilaterally Lower Extremity Sensory: Intact L1-S1 LABS: HgB: Lab Results Component Value Date/Time HGB 11.2 06/25/2025 06:10 AM Hemoglobin/Hematocrit: Lab Results Component Value Date/Time HGB 11.2 06/25/2025 06:10 AM HCT 34.1 06/25/2025 06:10 AM BMP: Lab Results Component Value Date/Time NA 138 06/24/2025 06:05 AM K 4.0 06/24/2025 06:05 AM CL 108 06/24/2025 06:05 AM CO2 22 06/24/2025 06:05 AM BUN 10 06/24/2025 06:05 AM CREATININE 0.7 06/24/2025 06:05 AM CALCIUM 8.1 06/24/2025 06:05 AM GFRAA >60.0 06/07/2022 03:30 PM LABGLOM > 90 06/24/2025 06:05 AM GLUCOSE 104 06/24/2025 06:05 AM ASSESSMENT AND PLAN: Post operative day 2 status post L5-S1 decompression and fusion 1: Monitor labs and drain output 2: Activity Level: As tolerated. PT/OT, back brace when ambulating 3: Pain Control: Good 4: Discharge Planning: Pending - [facility] BECCA Muñoz [facility] INPATIENT OCCUPATIONAL THERAPY [facility] 7K EVALUATION Discharge Recommendations: Home with assist PRN Equipment Recommendations: Yes Hand held shower; shower stool Time In: 1630 Time Out: 1655 Timed Code Treatment Minutes: 10 Minutes Minutes: 25 Date: 06/24/2025 Patient Name: Donaldo Ambrocio, Gender: female : 1985 (39 y.o.) Referring Practitioner: BECCA Muñoz Diagnosis: Lumbar stenosis with neurogenic claudication Additional Pertinent Hx: Pt admitted with progressive lower back pain which radiates and has paresthesias into BLEs. Pt had failed conservative measures. Pt is S/P L5-S1 Decompression and Fusion on 06/23/25. Restrictions/Precautions: Restrictions/Precautions: General Precautions, Surgical Protocols Required Braces or Orthoses Spinal: Lumbar Corset Position Activity Restriction Spinal Precautions: No Bending/Lifting/Twisting (BLT) Subjective Chart Reviewed: Yes, Orders, History and Physical, Other (comment) (PT evaluation) Patient assessed for rehabilitation services?: Yes Subjective: Pleasant and cooperative Comments: RN approved session. Pt agreed to go for another walk in the hallway. She reported pain in her lower back and was asking for a Flexeril after having returned from the walk. Her nurse was notified. Pain: 5/10: lower back pain with strange sensation in her Left leg. Pt was sitting at the edge of the bed following the session. Vitals: Vitals not assessed per clinical judgement, see nursing flowsheet Social/Functional History: Lives With: Alone Type of Home: House Home Layout: One level Home Access: Level entry Home Equipment: None Bathroom Shower/Tub: Tub/Shower unit Bathroom Toilet: Standard Bathroom Equipment: Grab bars in shower Bathroom Accessibility: Accessible Prior Level of Assist for ADLs: Independent Prior Level of Assist for Homemaking: Independent Homemaking Responsibilities: Yes Prior Level of Assist for Transfers: Independent Prior Level of Assist for Ambulation: Independent community ambulator, with or without device Has the patient had two or more falls in the past year or any fall with injury in the past year?: Yes 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 Type of Occupation: [employer] Additional Comments: Walks to/from work VISION:WFL HEARING: WFL COGNITION: WFL; cues needed for new learning. RANGE OF MOTION: Bilateral Upper Extremity: WFL STRENGTH: Bilateral Upper Extremity: Not Tested Hand Dominance: Right SENSATION: Pt had some numbness in her legs prior to her surgery and now she has strange sensation in her LLE. ADL: Toileting: Modified Independent. Pt had no difficulty with clothing management or with wiping after having voided. Toilet Transfer: Modified Independent. To/from the standard toilet seat using a grabbar. Pt sat at the edge of the bed while donning and doffing her LS corset brace with setup A provided. She could fasten and unfasten all of the velcro straps. IADL: Not Tested BALANCE: Sitting Balance: Stand By Assistance. Donning her lumbar corset brace at the edge of bed Standing Balance: Stand By Assistance. Preparing to walk in the hallway- straightening her pants BED MOBILITY: Rolling to Right: Stand By Assistance, with head of bed flat, with rail Supine to Sit: Stand By Assistance, with head of bed flat, with rail Scooting: Stand By Assistance, with rail TRANSFERS: Sit to Stand: Stand By Assistance. From the edge of bed Stand to Sit: Stand By Assistance. To the edge of bed FUNCTIONAL MOBILITY: Assistive Device: Rolling Walker Assist Level: Stand By Assistance. Distance: To and from bathroom and in the hallway. Pt had even steps and no LOB. Activity Tolerance: Patient tolerance of treatment: Fair treatment tolerance Pt had stood for 30 seconds while looking at the kitchenette and discussing the height of the shelves in the cupboard or refrigerator that she regularly uses at home. Functional Outcome Measures: -[facility] Inpatient Daily Activity Raw Score: 22 Modified Aletha: Premorbid Functional Status: Not Applicable Current Functional Status: Not Applicable Education: Learners: Patient Plan of Care, Role of OT,Precautions: back protection and Coping Strategies Assessment: Assessment: Pt presents to occupational therapy on Acute with a lumbar stenosis with neurogenic claudication. Pt demonstrates decreased strength and endurance impacting patient's ability to complete self care at prior level of functioning. Pt currently requires increased assistance with self care and use of a rolling walker for mobility. Due to patient's performance deficits in ADLs and standing activities, she would greatly benefit from continued occupational therapy services. Performance deficits / Impairments: Decreased functional mobility , Decreased high-level IADLs, Decreased safe awareness Prognosis: Good REQUIRES OT FOLLOW-UP: Yes Decision Making: Low Complexity Treatment Initiated: Treatment and education initiated within context of evaluation. Evaluation time included review of current medical information, gathering information related to past medical, social and functional history, completion of standardized testing, formal and informal observation of tasks, assessment of data and development of plan of care and goals. Treatment time included skilled education and facilitation of tasks to increase safety and independence with ADL's for improved functional independence and quality of life. Pt was independent prior to admission. She walked to/from work. Pt could not describe back protection techniques. The basics of avoiding the BLTs of her lower back were demonstrated. The benefit of staying within the sweet spot was emphasized. Where to place things on her shelves at home so she can have easy access to them with minimal strain to her back was demonstrated. Pt voiced understanding. Pt had some change in the sensation of her LLE since the surgery. She was reminded that a nerve root which was irritated for a period of time will need time before the swelling will decrease and more normal sensation will return. Pt voiced understanding. Plan: Times Per Week: 6x Current Treatment Recommendations: Functional mobility training, Endurance training, Safety education & training, Self-Care / ADL Additional Comments: Pt would be able to be reurn with friends as available. No follow up OT recommended. Specific Instructions for Next Treatment: Functional mobility; dynamic reaching and safety awareness; ADLs and postural awareness. See long-term goal time frame for expected duration of plan of care. If no long-term goals established, a short length of stay is anticipated. Goals: Patient goals : I want to do things as indendently as I am able at home. pt states. Short Term Goals Time Frame for Short Term Goals: By disharge Short Term Goal 1: Pt will demonstrate functional mobility walking to/from the ktichenette or the bathroom while using a rolling walker and carrying a light object with SBA to prepare for doing self care or light homemaking tasks. Short Term Goal 2: Pt will complete dynamic reaching tasks while standing and following good safety awareness with SBA and verbal cues if needed for back protection techniques to increase her independence with self care or doing any cooking or cleaning. Short Term Goal 3: Pt will complete dressing or bathing while following back protection techniques with SBA and verbal cues if needed to increase her independence with doing her self care routine. Additional Goals?: No AM-PAC Inpatient Daily Activity Raw Score: 22 AM-PAC Inpatient ADL T-Scale Score : 47.1 Following session, patient left in safe position in bed, with alarm, and call light within reach [facility] INPATIENT PHYSICAL THERAPY EVALUATION [facility] 7K - 7K-07/007-A Discharge Recommendations: Home with assist PRN Equipment Recommendations: Yes Mobility Devices: Walker Walker: Rolling Time In: 0944 Time Out: 1000 Timed Code Treatment Minutes: 8 Minutes Minutes: 16 Date: 06/24/2025 Patient Name: Donaldo Ambrocio, Gender: female : 1985 (39 y.o.) Referring Practitioner: Lionel Daley PA Diagnosis: Lumbar stenosis with neurogenic claudication Additional Pertinent Hx: The patient is a 39-year-old female with complaints of constant low back pain that radiates pain and paresthesias into the bilateral legs. Symptoms have been present on a chornic basis and progressively worsening. Current VAS score 8/10. Standing and walking aggravates her symptoms. L5-S1 decompression and fusion on 06/23/25. Restrictions/Precautions: Restrictions/Precautions: General Precautions, Surgical Protocols Spinal Precautions: No Bending/Lifting/Twisting (BLT) Required Braces or Orthoses?: Yes Spinal: Lumbar Corset Subjective: Chart Reviewed: Yes Patient assessed for rehabilitation services?: Yes Subjective: Nurse approved session. Patient pleasant and cooperative, states most comfortable in bed. General: Orientation Level: Oriented X4 Pain: 8/10: low back pain Vitals: Vitals not assessed per clinical judgement, see nursing flowsheet Social/Functional History: Lives With: Alone Type of Home: House Home Layout: One level Home Access: Level entry Home Equipment: None Bathroom Shower/Tub: Tub/Shower unit Bathroom Toilet: Standard Bathroom Equipment: Grab bars in shower Prior Level of Assist for ADLs: Independent Prior Level of Assist for Homemaking: Independent Prior Level of Assist for Transfers: Independent Prior Level of Assist for Ambulation: Independent household ambulator, with or without device, Independent community ambulator, with or without device Has the patient had two or more falls in the past year or any fall with injury in the past year?: Yes (hit head but negative imaging) 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[employer] Making Hand: Yes Type of Occupation: [employer] Additional Comments: Walks to/from work OBJECTIVE: Range of Motion: Bilateral Lower Extremity: WFL Strength: Bilateral Lower Extremity: WFL Balance: Static Sitting Balance: Independent Static Standing Balance: Stand By Assistance with use of walker Bed Mobility: Rolling to Right: Stand By Assistance Supine to Sit: Stand By Assistance Sit to Supine: Stand By Assistance Transfers: Sit to Stand: Stand By Assistance Stand to Sit:Stand By Assistance Ambulation: Stand By Assistance Distance: 250 feet Surface: Level Tile Device: Rolling Walker Gait Deviations: Slow Roxy and Increased reliance on assistive device Stairs: Not Tested Exercise: None Functional Outcome Measures: [facility] (6 CLICK) BASIC MOBILITY Modified Aletha: Premorbid Functional Status: Not Applicable Current Functional Status: Not Applicable ASSESSMENT: Activity Tolerance: Patient tolerance of treatment:Good. Treatment Initiated: Treatment and education initiated within context of evaluation. Evaluation time included review of current medical information, gathering information related to past medical, social and functional history, completion of standardized testing, formal and informal observation of tasks, assessment of data and development of plan of care and goals. Treatment time included skilled education and facilitation of tasks to increase safety and independence with functional mobility for improved independence and quality of life. Assessment: Body Structures, Functions, Activity Limitations Requiring Skilled Therapeutic Intervention: Decreased functional mobility , Decreased strength, Decreased safe awareness, Decreased tolerance to work activity, Decreased endurance, Decreased balance, Increased pain Assessment: Donaldo Ambrocio is a 39 y.o. female that presents with (L) LE radiculopathy, low back pain limiting her activity tolerance. Pt demonstrates a decrease in baseline by way of bed mobility, transfers and ambulation secondary to decreased activity tolerance, strength, fatigue, and balance deficits. Pt will benefit from skilled PT services throughout admission and beyond hospital discharge for improvements in functional mobility and in order to decrease fall risk and return pt to OF. Therapy Prognosis: Good Requires PT Follow-Up: Yes Patient Education: Patient Education Education Given To: Patient Education Provided: Mobility Training, Role of Therapy, Precautions Education Method: Demonstration, Verbal Barriers to Learning: None Education Outcome: Verbalized understanding, Demonstrated understanding Plan: Current Treatment Recommendations: Strengthening, Balance training, Functional mobility training, Transfer training, Endurance training, Gait training, Stair training, Neuromuscular re-education, Home exercise program, Safety education & training, Patient/Caregiver education & training, Therapeutic activities General Plan: (5x O) Goals: Patient Goals : None stated Short Term Goals Time Frame for Short Term Goals: by discharge Short Term Goal 1: Patient to sit <>supine (I)ly with log rolling technique with bed flat and without railing. Short Term Goal 2: Patient to sit<>stand with (I) with appropriate AD. Short Term Goal 3: Patient to ambulate >200 feet with least restrictive AD with (I). Short Term Goal 4: Patient to be (I) with back precautions with functional mobility/daily tasks. Automotive Lot Attendant Goals Time Frame for Snf Goals : n/a due to short LOS Following session, patient left in safe position in bed, with alarm, and call light within reach Department of Orthopedic Surgery Spine Service Attending Progress Note Subjective: POD#1 c/o surgical site pain, worsening tingling in left foot but starting to improve. Radicular sx improved. Ambulating to bathroom. No issues voiding. Denies n/v. Hgb 11.2. Vitals VITALS: BP (!) 127/91 Pulse 79 Temp 98.4 F (36.9 C) (Oral) Resp 16 Ht 1.753 m (5' 9 ) Wt 66.2 kg (146 lb) LMP 06/01/2025 SpO2 100% BMI 21.56 kg/m 24HR INTAKE/OUTPUT: Intake/Output Summary (Last 24 hours) at 06/24/2025 0633 Last data filed at 06/24/2025 0340 Gross per 24 hour Intake 2070 ml Output 630 ml Net 1440 ml URINARY CATHETER OUTPUT (Gentile): DRAIN/TUBE OUTPUT: Closed/Suction Drain Left Back Accordion-Output (ml): 120 ml Closed/Suction Drain Right Back Accordion-Output (ml): 40 ml PHYSICAL EXAM: Orientation: alert and oriented to person, place and time Incision: dressing in place, clean, dry, intact Lower Extremity Motor : quadriceps, extensor hallucis longus, dorsiflexion, plantarflexion 5/5 bilaterally Lower Extremity Sensory: Intact L1-S1 LABS: HgB: Lab Results Component Value Date/Time HGB 11.2 06/24/2025 06:05 AM Hemoglobin/Hematocrit: Lab Results Component Value Date/Time HGB 11.2 06/24/2025 06:05 AM HCT 35.0 06/24/2025 06:05 AM BMP: Lab Results Component Value Date/Time NA 139 01/13/2025 06:18 PM K 4.2 01/13/2025 06:18 PM CL 105 01/13/2025 06:18 PM CO2 22 01/13/2025 06:18 PM BUN 11 01/13/2025 06:18 PM CREATININE 0.8 01/13/2025 06:18 PM CALCIUM 8.6 01/13/2025 06:18 PM GFRAA >60.0 06/07/2022 03:30 PM LABGLOM >90 01/13/2025 06:18 PM GLUCOSE 118 01/13/2025 06:18 PM ASSESSMENT AND PLAN: Post operative day 1 status post L5-S1 decompression and fusion 1: Monitor labs and drain output 2: Activity Level: As tolerated. PT/OT, back brace when ambulating 3: Pain Control: Ok 4: Discharge Planning: Pending BECCA Muñoz Pt [facility] via cart/stretcher. Complaints: none. IV normal saline infusing into the hand left, condition patent and no redness at a rate of 125 mls/ hour with about 800 mls in the bag still. IV site free of s/s of infection or infiltration. Vital signs obtained. Assessment and data collection initiated. Two nurse skin assessment performed by Isa SANTOS and Myriam SANTOS. Oriented to room. Explained patients right to have family, benefits representative or physician notified of their admission. Patient has Declined for physician to be notified. Patient has Declined for family/benefits representative to be notified. The patient is interested in [facility] program?: Yes Policies and procedures for explained. All questions answered with no further questions at this time. Fall prevention and safety brochure discussed with patient. Bed alarm on. Call light in reach. Called 7K and gave report to TOM Miguel. Pt returned to SDS room 6. Vitals and assessment as charted. 0.9 infusing, to count from PACU. Pt has crackers and water. Family at the bedside. Pt and family verbalized understanding of discharge criteria and call light use. Call light in reach. Patient oriented to Same Day department and admitted to Same Day Surgery room 6. Patient verbalized approval for first name, last initial with physician name on unit whiteboard. Plan of care reviewed with patient. Patient room whiteboard filled out and discussed with patient and responsible adult. Patient and responsible adult offered Same Day Welcome Packet to review. Call light in reach. Bed in lowest position, locked, with one bed rail up. SCDs and warming blanket in place. Appropriate arm bands on patient. Bathroom offered. All questions and concerns of patient addressed. Meds to Beds: Patient informed of [facility] to [facility] program during admission. Patient is agreeable to program. Contact information for the pharmacy and the Meds to Beds program: Name: Donaldo Relationship to patient:patient Phone number: in house Left message for MARKO Allen Medical records - Needing pre-op labs and clearance yet. Await for response. Preliminary Discharge Planning Questionnaire Date of Surgery 06/23/[address] [facility] Having the proper help and care after surgery is very important to your recovery. Who will be able to help you at home when you are discharged from the hospital? Pt is currently in a drug rehab program - pt states she is homeless - living in a hotel at this time Name(s) No Family support How many steps to enter your home? 0 Bathroom on first floor? Yes Bedroom on the first floor? Yes Do you have an elevated toilet seat to use at home? No Do you have a walker to use at home? Total Joints - with wheels N/A Spine - with wheels No Have you been doing home exercises?yes *You will go home with some outpatient physical therapy, where do you prefer to go? Pt would prefer staying at [facility] in [place], [place] or [place] This typically will not start until after your post visit to your Dr. (3-4 weeks after surgery) * What home health agency would you like to use?Pt [facility] [place] [place] [facility] Images from the original note were not included. Follow all instructions given by your physician Do not eat or drink anything after midnight prior to surgery(includes water, chewing gum, mints and ice chips) Sips of water am of surgery with allowed medications May brush teeth Do not smoke or chew tobacco, drink alcoholic beverages or use any illicit drugs for 24 hours prior to surgery Bring insurance info and photo ID Bring pertinent paperwork with you from Doctor or surgeons's office Wear clean comfortable, loose-fitting clothing No make-up, nail montenegrin, jewelry, piercings, or contact lenses to be worn day of surgery No glue on dentures morning of surgery; you will be asked to remove them for surgery. Case for glasses. Shower the night before and the morning of surgery with cleansing soap provided or a liquid antibacterial soap, dry with new fresh clean towel after each shower, no lotions, creams or powder. Clean sheets and pillowcase on bed night before surgery Do you have a DNR? Please Bring Healthcare Directive or Healthcare Power of Staple Side Laster in so we can scan it into your chart. No Report to [facility] on 2nd floor Make sure you have a responsible adult to drive you home after your surgery otherwise surgery will be cancelled. You must have a responsible adult to stay with you overnight after your procedure or your surgery may be cancelled. If you would become ill prior to surgery, please call the surgeon right away. We request that you limit to 2 visitors in pre-op area Call PAT [phone] for any questions Our pharmacy has a Meds to Beds program where they will deliver any new prescriptions you may have to your room before you leave. Our Pharmacy will clear it through your insurance; for example (same co pay). This enables you to take your new RX as soon as you need when you get home and avoids stop/wait delays on the way home. Please have a form of payment with you and have someone designated as your Pharmacy contact with their phone # as you may not feel well or still be under the influence of anesthesia. Please refer to the SSI-Surgical Site Infection Flyer you hopefully received in the mail-together we can prevent infections; signs and symptoms reviewed. When discharged be sure you understand how to care for your wound and that you have the Dr./office phone # to call if you have any concerns or questions about your wound. documented in this encounter [facility] 06-26-2025 Hospital Discharge instructions Lionel Daley PA - 06/26/2025 6:01 AM EDT Wound Care: -Do not change dressing or shower until the drain has been removed. Okay to shower after drain is removed but try and keep incision as dry as possible. Do not submerge incision in water. Avoid hot-tubs and pools -Once drain is removed, start dressing changes. Change once daily with 4x4 gauze and paper tape until the wound is no longer draining Restrictions: -Limit bending and twisting -No lifting over 10-15 lbs -Walk as much as tolerated, take short frequent walks throughout the day and try to take one long walk a day (start at 5 minutes and increase as tolerated) -Wear back brace whenever you are ambulating -Use walker until you feel safe -Continue restrictions and wearing the back brace until your first postop appointment Medications: -A pain medication (Percocet) and muscle relaxer (Flexeril) will be sent to your pharmacy. Take medications as directed -Pain medications can cause postoperative constipation. Take an over the counter stool softener while taking the pain medication -Okay to resume vitamins and supplements one week after surgery -Hold all NSAIDs (I.e. ibuprofen, motrin, Aleve, etc) for 6 months following surgery -Okay to resume aspirin 72 hours after surgery and all other blood thinners 5 days following surgery unless otherwise directed DO not take suboxone while taking Percocet Postoperative appointment: -Please contact the office to schedule an appointment for 6 weeks after surgery if you are not already scheduled for an appointment - ext [phone] If any concerning symptoms, such as calf pain/swelling, new numbness/tingling or pain please the contact the office. If concerning symptoms including weakness, chest pain or difficulty breathing, go to the Emergency Department. documented in this encounter [facility] 06-23-2025 Note PROCEDURE: XR LUMBAR SPINE 1 VW CLINICAL INFORMATION: 39-year-old female undergoing lumbar spine surgery. COMPARISON: No prior study. TECHNIQUE: A crossfire lateral film of the lumbar spine was obtained FINDINGS: Transpedicular screws and fusion rods extend from L5-S1. [facility] 06-23-2025 Note PROCEDURE: XR LUMBAR SPINE 1 VW CLINICAL INFORMATION: 39-year-old female undergoing lumbar spine surgery. COMPARISON: No prior study. TECHNIQUE: A crossfire lateral film of the lumbar spine was obtained FINDINGS: Transpedicular screws and fusion rods extend from L5-S1. IMPRESSION: Intraoperative appearance of the lumbar spine This report has been created using voice recognition software. It may contain minor errors which are inherent in voice recognition technology. Electronically signed by Dr Marko Xavier Interpreted by: Marko Xavier MD Signed by: Marko Xavier MD 06/23/25 Final result [facility] 03-04-2025 Evaluation note Diagnosis Onset Date Resolution Decreased urination acute March 04, 2025 6:26pm Leg swelling acute March 04, 2025 6:26pm [facility] Work Phone: 1(505) 110-128402-15-2025 Hospital Discharge instructions* Discharge Instructions* Vandana Jauregui MD - 12/20/2024 5:24 PM EST Start Medrol Dosepak tomorrow and take as directed until complete. Use Flexeril every 8 hours as needed for muscle spasms. Use vjvn-jef-dpfxmls products such as IcyHot Biofreeze or similar products as needed and directed. Heat or ice for 5 to 10-minute intervals as desired. Follow-up with primary care provider soon as possible. Please return immediately for any worsening symptoms or any acute conc erns * Attachments The following attachments cannot be sent through Care Everywhere. * Degenerative Disc Disease: General Info (Palauan) [facility] Discharge instructions* Discharge Instructions* Maddie Buenrostro NP-C - 09/18/2024 2:16 PM EST Take/apply medications as directed. RICE (rest, ice, compress, elevate). Follow-up with [facility]. Return to ED if any new, or worsening symptoms. * Attachments The following attachments cannot be sent through Care Everywhere. * Knee Pain or Injury (Palauan) * Abrasions (Palauan) * RICE: General Info (Palauan) [facility] Hospital Discharge instructions* Discharge Instructions* Wilmar Coker MD - 07/22/2024 4:46 AM EDT You were seen at 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 You should return to the ER for persistent and worsening chest pain, especially if it radiates to the jaw or back and is associated with shortness of breath and increase or new lower extremity swelling, or for any other concerns. Below is reference to the [place] [employer] for additional information on chest pain symptoms. https://www.heart.org/en/health-topics/house-calls/wfyv-riyu-ebsdr-pain-mean#:~: text=The%20most%20im portant%20thing%20to,dizziness%2C%20or%20shortness%20of%20breath. documented in this [facility] Work Phone: 1(266) 318-541809-16-2024 Emergency department Note* Wilmar Coker MD - [...] time.. pt received 3 nitro glycerin at [facility] and 325mg of aspirin via EMS. Pt denies fevers, abdominal pain, nausea, vomiting, rhinorrhea. Still was smoking prior to [facility] and does endorse some difficulty breathing today [...] ED Course & MDM No data recorded [place] Coma Scale Score: 15 (07/22/24 0009 : [...] Coker MD 07/22/24 0103 documented in this [facility] Work Phone: 1(588) 208-935309-16-2024 Physician Emergency department Note* Wilmar Coker MD [...] time.. pt received 3 nitro glycerin at [facility] and 325mg of aspirin via EMS. Pt denies fevers, abdominal pain, nausea, vomiting, rhinorrhea. Still was smoking prior to [facility] and does endorse some difficulty breathing today [...] Procedure Procedures Wilmar Coker MD 07/22/24 0103 [facility] Work Phone: 1(137) 346-192206-28-2023 Miscellaneous Notes* Telephone Encounter - Amy Jennifer - 05/02/2023 6:15 PM EDT 05/02/2023 After visit summary faxed to David Thomson [facility] [phone] with confirmation received. Amy Jennifer Hamiltonn documented in this encounterUniversity [facility]als [facility]-28-2023 NoteHNO ID: [id number] Author: Patti Velazquez Service: ? Author Type: ? Type: Progress Notes Filed: 05/02/2023 1:15 PM Note Text: Patient was contacted and accepted follow up appt with Dr. Prado on 10/23 (first available) She could not record the phone number for further scheduling at the time of the phone call so a [employer] message was sent and the phone numbers for home sleep apnea study and for neuropsychology were given.[facility]06-27-2023 NoteHNO ID: [id number] Author: Hal Prado, Service: ? Author Type: Physician Type: Progress Notes Filed: 05/02/2023 7:44 AM Note Text: [facility] Neurologic Rufe New Patient Consultation May 01, 2023 Visit [...] have been on sumatriptan when living in [place], moving to [place] in 2020. She feels she has memory [...] as still unfamiliar with the state of [place], used more for unfamiliar area. She admits [...] D3 (CITRACAL+D) 315 (more content not included)... [facility]06-27-2023 History of Present illness Narrative* Hal Prado DO - 05/01/2023 12:42 PM EDT [facility] Neurologic Rufe New Patient Consultation May 01, 2023 Visit [...] have been on sumatriptan when living in [place], moving to [place] in 2020. She feels she has memory [...] around as still unfamiliar with the state [facility], used more for unfamiliar area. She admits [...] No cervical spine fracture or traumatic malalignment. Therapy Administrative Assistant: SUNDEEP Transcribe Date/Time: Mar 30 2023 11:21P Dictated [...] with the patient located at work in [place], [place]. Physician in office in [place], [place]. I have communicated my name and active licensure. The patient's identity and physical location wereverified at the time of this visit. Either the patient or their legal benefits representative has been informed of the risks and benefits of -- and alternatives to -- treatment through a remote evaluation andconsents to proceed with the evaluation remotely. documented in this encounterUniversity Hospitals [facility]11-03-2022 Hospital Discharge instructions* Discharge Instructions* Tray Watkins MD - 09/07/2022 3:08 PM EDT RETURN FOR NEW OR WORSENING SYMPTOMS. * Attachments The following attachments cannot be sent through Care Everywhere. * Foreign Body in the Vagina (Palauan) documented in this encounter[facility] Work Phone: 1(112) 923-830410-28-2022 NoteHNO ID: [id number] Author: Amy Macario PA-C Service: ? Author Type: Physician Volunteer Services Supervisor Type: Progress Notes Filed: 09/01/2022 4:03 PM Note Text: New Patient Referring Physician: David Thomson CNP Donaldo Abmrocio is a 37 year old female referred [...] X-Rays The patient's pertinent medical history from [facility] has been reviewed. PFOMIS forms have been [...] required reviewed the patie (more content not included)...[facility]10-06-2022 Instructions* Patient Instructions* Tk Dominguez PA-C - [...] inclement weather here is an online resource: http://www.Askem/ documented in this encounterUniversity Hospitals Beach[facility]10-06-2022 History of Present illness Narrative* Tk [...] performed on 08/03/22, and available in the [facility] health record, showed lateral talus avulsion fx [...] which included preparing to see the patient, upts-on-xfvx patient care, completing clinical documentation, obtaining and/or reviewing separately obtained history, performing a medically appropriate examination, counseling and educating the pat ient/family/caregiver, ordering medications, tests, or procedures, communicating with other HCPs (not separately reported), independently interpreting results (not separately reported), communicatingresults to the patient/family/caregiver and care coordination (not separately reported) Tk Dominguez PA-C Orthopedic Foot and Ankle documented in this encounterUniversity Hospitals Beachwood [facility] Center09-29-2022 NoteHNO ID: [id number] Author: RT Elif(R) Service: Radiology Author Type: [...] BY: RT Elif(R) August 02, 2022 11:09 [id number] NoteHNO ID: [id number] Author: RT Angelia(R) Service: Radiology Author Type: [...] BY: RT Angelia(R) November 11, 2021 4:09 [facility] HospitalEvaluation note* Diagnosis Cellulitis of finger of right hand- Primary Cellulitis and abscess of finger, unspecified documented in this encounter [employer] Phone: evaluation note* Diagnosis Kidney stone Calculus of kidney documented in this encounter [employer] Phone: evaluation note* Diagnosis Abnormal CT scan, kidney Nonspecific (abnormal) findings on radiological and other examination of genitourinary organs documented in this encounter [employer] Phone: evaluation note* Diagnosis Cervical radiculopathy Brachial neuritis or radiculitis nos Cervicalgia Left arm weakness Other musculoskeletal symptoms referable to limbs documented in this encounter [employer] Phone: evaluation note* Diagnosis Melena Blood in stool Constipation, unspecified constipation type Gastritis without bleeding Unspecified gastritis and gastroduodenitis without mention of hemorrhage documented in this encounter [employer] Phone: evaluation note* Diagnosis Urticaria- Primary Urticaria, unspecified Rash and other nonspecific skin eruption Blood in stool Constipation, unspecified constipation type documented in this encounter [employer] Phone: evaluation note* Diagnosis Constipation Unspecified constipation documented in this encounter [employer] Phone: evalbhtaqr note* Diagnosis Closed nondisplaced avulsion fracture of left talus, initial encounter- Primary Sprain of anterior talofibular ligament of left ankle, initial encounter Sprain of posterior talofibular ligament of left ankle, initial encounter Sprain of deltoid ligament of left ankle, initial encounter documented in this encounter [facility]* Diagnosis Foreign body in vagina, initial encounter- Primary documented in this encounter [employer] Phone: evaluation note* Diagnosis Concussion with loss of consciousness, subsequent encounter- Primary Memory loss documented [facility]* Diagnosis Acute pain of left knee- Primary Abrasion, left knee, initial encounter documented in this encounter [employer] note* Diagnosis Acute nonintractable headache, unspecified headache type- Primary Chest pain, unspecified type documented in this encounter [facility] Work Phone: Evaluation note* Diagnosis Radiculopathy, unspecified spinal region- Primary documented in this encounter [facility]* Diagnosis Atypical chest pain- Primary Other chest pain documented in this encounter [facility] noteNo assessment information available [facility] Work Phone: Evaluation note* Diagnosis Lumbar stenosis with neurogenic claudication- Primary Spinal stenosis, lumbar region, with neurogenic claudication [facility]* Attachments The following attachments cannot be sent through Care Everywhere. * Cellulitis ([place]) [facility]: Hospital Discharge instructions* Attachments The following attachments cannot be sent through Care Everywhere. * Gastritis ([place]an) * EGD (Upper Endoscopy): Pre-op ([place]an) * Coronavirus Disease (COVID-19): General Info ([place]) [facility]: Hospital Discharge instructions* Attachments The following attachments cannot be sent through Care Everywhere. * Urticaria ([place]) * Rash ([place]) documented in this encounterGUARD[facility]OSPITALInit[facility] Work Phone: Hospital Discharge instructions* Attachments The following attachments cannot be sent through Care Everywhere. * Chest Pain ([place]) documented in [facility] encounterBon [facility] [employer] [facility]As[facility] Hospital[facility] for referral (narrative)* Diagnostic Procedure Only (Routine) - Pending Review Specialty Diagnoses / Procedures Referred By Louie t Referred To Contact XR IMAGING Diagnoses Sprain of anterior talofibular ligament of left ankle, initial encounter Sprain of posterior talofibular ligament of left ankle, initial encounter Sprain of deltoid ligament of left ankle, initial encounter Closed nondisplaced avulsion fracture of left talus, initial encounter Procedures XR ANKLE GENERAL 3V AP/LAT/OBL LEFT RADEX ANKLE COMPLETE MINIMUM 3 VIEWS Tk Doimnguez, PAOscar [address] [place] [address] Xr Imaging Referral ID Status Reason Start Date Expiration Date Visits Requested Visits Authorized [id number] Pending Review Auto-Generat ed Referral 08/10/2022 09/09/2023 1 1 [facility] for referral (narrative)* Diagnostic Procedure Only (Routine) - Pending Review Specialty Diagnoses / Procedures Referred By Contact Referred To Contact [facility] Diagnoses Concussion with loss of consciousness, subsequent encounter Memory loss Procedures HOME SLEEP APNEA TEST (HSAT) SLEEP STD AIRFLOW HRT RATE&O2 [place] [address] [place] [address] [facility] [address] [place] [address] Referral ID Status Reason Start Date Expiration Date Visits Requested Visits Authorized [id number] Pending Review Auto-Generat ed Referral 05/01/2023 04/30/2024 1 1 [facility] for visit Narrative* Auth/Cert Specialty Diagnoses / Procedures Referred By Contac t Referred To Contact Diagnoses Melena Constipation, unspecified melena, constipation; K92.1, K59.00 Procedures ME ESOPHAGOGASTRODUODENOSCOPY TRANSORAL DIAGNOSTIC ME COLONOSCOPY FLX DX W/COLLJ SPEC WHEN PFRMD ME EGD TRANSORAL BIOPSY SINGLE/MULTIPLE ME EGD BALLOON DILATION ESOPHAGUS <30 MM DIAM ME COLONOSCOPY W/BIOPSY SINGLE/MULTIPLE ME COLSC FLX W/RMVL OF TUMOR POLYP LESION SNARE TQ EGD ESOPHAGOGASTRODUODENOSCOPY COLONOSCOPY DIAGNOSTIC Didier Eldridge MD [address] [place] [address] [facility] [address] [place] [address] Referral ID Status Reason Start Date Expiration Date Visits Re quested Visits Authorized 1 1 [facility] Phone: reason for visit Narrative* Auth/Cert Specialty Diagnoses / Procedures Referred By Contac t Referred To Contact Diagnoses Colon cancer screening Screening Procedures ME COLONOSCOPY FLX DX W/COLLJ SPEC WHEN PFRMD ME COLONOSCOPY W/BIOPSY SINGLE/MULTIPLE ME COLSC FLX W/RMVL OF TUMOR POLYP LESION SNARE TQ COLORECTAL CANCER SCREENING, NOT HIGH RISK Didier Eldridge MD [address] [place] [address] [facility] [address] [place] [address] Referral ID Status Reason Start Date Expiration Date Visits Re quested Visits Authorized [id number] 1 1 [facility] Work Phone: reason for visit Narrative* Auth/Cert Specialty Diagnoses / Procedures Referred By Contac t Referred To Contact Diagnoses Degeneration of intervertebral disc of lumbar region, unspecified whether pain present Procedures ME ARTHRODESIS POSTERIOR/PSTLAT TQ 1NTRSPC LUMBAR ME MARY FACETECTOMY & FORAMOTOMY 1 VRT SGM LUMBAR ME POSTERIOR NON-SEGMENTAL INSTRUMENTATION ME AUTOGRAFT SPINE SURGERY LOCAL FROM SAME INCISION L5-S1 DECOMPRESSION AND FUSION L5-S1 DECOMPRESSION AND FUSION L5-S1 DECOMPRESSION AND FUSION L5-S1 DECOMPRESSION AND FUSION Tiffanie Julien MD [facility] [place] [address] [address] Phone: tel: fax: [employer] [id number] [place] [phone] Referral ID Status Reason Start Date Expiration Date Visits Re quested Visits Authorized [id number] 1 1 [employer] Reason for Referral Specialty Diagnoses / Procedures Referred By Contac t Referred To Contact Radiology Diagnoses Abnormal CT scan, kidney Procedures CT Urogram Catracho Villanueva MD [address] [facility] [address] [place] [address] Referral ID Status Reason Start Date Expiration Date V isits Requested Visits Authorized Pending Review 02/13/2022 02/03/2023 1 1 Specialty Diagnoses / Procedures Referred By Contac t Referred To Contact Radiology Diagnoses Cervical radiculopathy Cervicalgia Left arm weakness Procedures MRI CERVICAL SPINE WO CONTRAST David Thomson, [facility] - [place] [address] [facility] [address] [place] [address] Referral ID Status Reason Start Date Expiration Date Visits Re quested Visits Authorized [id number] Closed 03/03/2022 06/01/2022 1 1 Specialty Diagnoses / Procedures Referred By Louie pineda Referred To Contact Orthopedic Surgery Diagnoses Acute pain of left knee Maddie Buenrostro NP-C [address] [place] [address] [facility] [address] [facility] [address] [place] [address] Referral ID Status Reason Start Date Expiration Date V isits Requested Visits Authorized [id number] Open Specialty Services Required 09/18/2024 09/18/2025 1 1 Scheduling Instructions [facility] The patient can be scheduled with any [...] Time Advance Directives No March 04 6:24pm Date Activated Date Inactivated Comments 06/23/2025 8:04 AM Chief Complaint and Reason for Visit Chief [...] Procedures CT Urogram Catracho Villanueva MD [address] [facility] [address] [place] [address] Referral ID Status Reason Start Date Expiration Date V isits Requested Visits Authorized [id number] Pending Review 02/13/2022 02/03/2023 1 1 Specialty Diagnoses / Procedures Referred By Louie pineda Referred To Contact Radiology Diagnoses Cervical radiculopathy Cervicalgia Left arm weakness Procedures MRI CERVICAL SPINE WO CONTRAST David Thomson, [facility] - [place] [address] [place] [address] Referral ID Status Reason Start Date Expiration Date Visits Re quested Visits Authorized [id number] Closed 03/03/2022 06/01/2022 1 1 Reason Comments [...] losing feeling to her arms and legs. Grawn very warm and thought she was going to pass out. Reason Comments Chest Pain Patient to the emerg ency department by EMS from [facility] for Chest Pain while eating dinner. Patient [...] Date End Da te bacitracin-polymyxin b (POLYSPORIN) [id number] UNIT/GM ointment Apply topically 2 times daily. [...] 1142 (New Bag - Prov ider: Patti Doty, RN)1207 [facility] Lida Lemus, [facility] - [facility]) PRN Medication Order 06/14/2022 06/15/2022 06/16/2022 simethicone [...] dose 0410 (New Bag - Prov ider: Nikkiakin Michael RN)0430 (Stopped - Provider: Nikki Michael [...] 1645 1654 (Given - Provid er: Raquel Mckenzie, TOM) predniSONE (DELTASONE) tablet 50 mg (COMPLETED) 50 mg, Oral, ONCE, 1 dose, On 12/20/24 at 1645 1707 (Given - Provid er: Raquel Mckenzie RN) Scheduled Medication Order 06/25/2025 06/26/2025 06/27/2025 bisacodyl (DULCOLAX) EC tablet 5 mg 5 mg, Oral, DAILY, First dose on Sun06/23/25 at 1700, Until Discontinued, Do not crush or break., Post-op 0837 (Given - Provider: Maxime Dumont RN) 0739 (Not Given - Provider: Dany Denton RN - Reason: Patient/family refused) 08 (Given - Provider: Nina Herbert, TOM) polyethylene glycol (GLYCOLAX) packet 17 g 17 g, Oral, DAILY, First dose on Sun06/23/25 at 1700, Until Discontinued, Stir and dissolve one packet of powder (17 g) in any 4 to 8 ounces of beverage (cold, hot or room temperature) then drink, Post-op 0836 (Given - Provider: Maxime Dumont RN) 0739 (Not Given - Provider: Dany Denton, TOM - Reason: Patient/family refused) 08 (Given - Provider: Nina Herbert, TOM) sennosides-docusate sodium (SENOKOT-S) 8.6-50 MG tablet 1 tablet 1 tablet, Oral, 2 TIMES DAILY, First dose on Sun06/23/25 at 2100, Until Discontinued, Post-op 0836 (Given - Provider: Maxime Dumont, RN)194 (Given - Provider: Cheo Yeung RN) 0739 (Not Given - Provider: Dany Denton, TOM - Reason: Patient/family refused)2113 (Not Given - Provider: Avani Oconnor RN - Reason: Patient/family refused) 08 (Given - Provider: Nina Herbert, TOM)2099 (Due) sodium chloride flush 0.9 % injection 5-40 mL 5-40 mL, IntraVENous, EVERY 12 HOURS SCHEDULED (2 times per day), First dose on Sun06/23/25 at 2100, Until Discontinued, For Line Patency: Peripheral IV = 5 mL; Midline or Central Line = 10 mL/lumen. If following IV push medication, administer flush at same rate as the IV push. Flush volume is determined by type of infusion therapy being given. For non-viscous solutions use: Peripheral IV = 5 mL Midline or Central Line = 10 mL/lumen For viscous solutions (i.e. blood components, parenteral nutrition, contrast media, or after obtaining blood sample) use: Peripheral IV = 10 mL Midline or Central Line = 20 mL/lumen, Post-op 0836 (Not Given - Provider: Maxime Dumont, TOM - Reason: Loss of IV access)194 (Not Given - Provider: Cheo Yeung, RN - Reason: Loss of IV access) 0739 (Not Given - Provider: Dany Denton RN - Reason: Loss of IV access)2113 (Not Given - Provider: Avani Oconnor RN - Reason: Loss of IV access) 0803 (Not Given - Provider: Nina Herbert RN - Reason: Loss of IV access)2100 (Due) Continuous Medication Order 06/25/2025 06/26/2025 06/27/2025 0.9 % sodium chloride infusion IntraVENous, at 125 mL/hr, CONTINUOUS, Starting on Sun06/23/25 at 1700, Post-op 1152 (Stopped - Prov ider: Nina Herbert RN) PRN Medication Order 06/25/2025 06/26/2025 06/27/2025 0.9 % sodium chloride infusion IntraVENous, at 5-250 mL/hr, PRN, if patient receiving piggyback infusions and maintenance fluids are not ordered OR KVO fluids to protect IV site / prevent frequent line interruptions/ long duration, Starting on Sun06/23/25 at 1642, For piggyback infusion, administer at same rate as piggyback for a total of 25 mL. Enter 25 mL into dose field and piggyback rate into rate field of order. If piggyback is infusing at a rate less than 100 mL/hr, enter 25 mL into dose field and 100 mL/hr into rate field of order. For KVO fluids, enter rate of 20 mL/hr or less into rate field of order., Post-op acetaminophen (TYLENOL) tablet 650 mg 650 mg, Oral, EVERY 6 HOURS PRN, Starting on Sun06/23/25 at 1642, Until Discontinued, Pain Mild (1-3) OR per patient request for pain score (4-10), Fever, Maximum dose of acetaminophen is 4000 mg from all sources in 24 hours., Post-op 1939 (Given - Provider: Cheo Yeung RN) 07 (Given - Provider: Dany Denton, RN)1731 (Given - Provider: Dany Denton, RN) albuterol sulfate HFA (PROVENTIL;VENTOLIN;PROA IR) 108 (90 Base) MCG/ACT inhaler 2 puff 2 puff, Inhalation, EVERY 6 HOURS PRN, Starting on Sun06/23/25 at 1642, Until Discontinued, Wheezing, Initiate RT Bronchodilator Protocol: Yes - Inpatient Protocol bisacodyl (DULCOLAX) suppository 10 mg 10 mg, Rectal, DAILY PRN, Starting on Sun06/23/25 at 1642, Until Discontinued, Constipation, Second line therapy for constipation, After 24 hours, if no result from first line PRN therapy, give second line therapy in combination with first line therapy., Post-op calcium carbonate (TUMS) chewable tablet 500 mg 500 mg, Oral, 3 TIMES DAILY PRN, Starting on Sun06/23/25 at 1642, Until Discontinued, Heartburn cyclobenzaprine (FLEXERIL) tablet 10 mg 10 mg, Oral, 3 TIMES DAILY PRN, Starting on Sun06/23/25 at 1159, Until Discontinued, Muscle spasms, Post-op 0836 (Given - Provider: Maxime Dumont RN)1939 (Given - Provider: Cheo Yeung RN) 07 (Given - Provider: Dany Denton, TOM)1731 (Given - Provider: Dany Denton, RN) magnesium hydroxide (MILK OF MAGNESIA) 400 MG/5ML suspension 30 mL 30 mL, Oral, DAILY PRN, Starting on Sun06/23/25 at 1642, Until Discontinued, Constipation, First line therapy for constipation., Post-op ondansetron (ZOFRAN) injection 4 mg(Linked Group 1) 4 mg, IntraVENous, EVERY 6 HOURS PRN, Starting on Sun06/23/25 at 1159, Until Discontinued, Nausea, Vomiting, Administer if oral route cannot be used., Post-op ondansetron (ZOFRAN-ODT) disintegrating tablet 4 mg(Linked Group 1) 4 mg, Oral, EVERY 8 HOURS PRN, Starting on Sun06/23/25 at 1159, Until Discontinued, Nausea, Vomiting, Post-op oxyCODONE (ROXICODONE) immediate release tablet 10 mg(Linked Group 2) 10 mg, Oral, EVERY 6 HOURS PRN, Starting on Sun06/23/25 at 1159, Until Discontinued, Pain Severe (7-10), Post-op 0836 (Given - Provider: Maxime Dumont RN)1718 (Given - Provider: Dalia Watson LPN) 0402 (Given - Provider: Cheo Yeung RN)143 (Given - Provider: Dany Denton RN)2114 (Given - Provider: Avani Oconnor RN) 035 (Given - Provider: Avani Oconnor RN)1056 (Given - Provider: Nina Herbert RN) oxyCODONE (ROXICODONE) immediate release tablet 5 mg(Linked Group 2) 5 mg, Oral, EVERY 6 HOURS PRN, Starting on Sun06/23/25 at 1159, Until Discontinued, Pain Moderate (4-6) OR per patient request for pain score (7-10), Post-op 0836 (See Alternative - Provider: Maxime Dumont RN)1718 (See Alternative - Provider: Dalia Watson LPN) 0402 (See Alternative - Provider: Cheo Yeung RN)143 (See Alternative - Provider: Dany Denton RN)2114 (See Alternative - Provider: Avani Oconnor RN) 035 (See Alternative - Provider: Avani Oconnor RN)1056 (See Alternative - Provider: Nina Herbert RN) sodium chloride flush 0.9 % injection 5-40 mL 5-40 mL, IntraVENous, PRN, Starting on Sun06/23/25 at 1642, Until Discontinued, Line Care, After every IV line use, For Line Patency: Peripheral IV = 5 mL; Midline or Central Line = 10 mL/lumen. If following IV push medication, administer flush at same rate as the IV push. Flush volume is determined by type of infusion therapy being given. For non-viscous solutions use: Peripheral IV = 5 mL Midline or Central Line = 10 mL/lumen For viscous solutions (i.e. blood components, parenteral nutrition, contrast media, or after obtaining blood sample) use: Peripheral IV = 10 mL Midline or Central Line = 20 mL/lumen, Post-op Linked Groups Order Group 1: ondansetron (ZOFRAN-ODT) disintegrating tablet 4 mgJump to med 4 mg, Oral, EVERY 8 HOURS PRN, Starting on Sun06/23/25 at 1159, Until Discontinued, Nausea, Vomiting, Post-op Or ondansetron (ZOFRAN) injection 4 mgJump to med 4 mg, IntraVENous, EVERY 6 HOURS PRN, Starting on Sun06/23/25 at 1159, Until Discontinued, Nausea, Vomiting, Administer if oral route cannot be used., Post- op Group 2: oxyCODONE (ROXICODONE) immediate release tablet 5 mgJump to med 5 mg, Oral, EVERY 6 HOURS PRN, Starting on Sun06/23/25 at 1159, Until Discontinued, Pain Moderate (4-6) OR per patient request for pain score (7-10), Post-op Or oxyCODONE (ROXICODONE) immediate release tablet 10 mgJump to med 10 mg, Oral, EVERY 6 HOURS PRN, Starting on Sun06/23/25 at 1159, Until Discontinued, Pain Severe (7-10), Post-op Care Teams (unrecognized sec tion and content) Purchasing Internship Relationship Specialty Start Date End Date David Thomson APRN [place] [address] [facility] [address] [place] [address] PCP - General Family Medicine 11/22/21 Purchasing Internship Relationship Specialty Start Date End Date David Thomson APRN - [place] [address] [place] [address] PCP - General Family Medicine 11/22/21 Purchasing Internship Relationship Specialty Start Date End Date David Thomson APRN - [place] [address] [facility] [address] [place] [address] PCP - General Family Medicine 11/22/21 Purchasing Internship Relationship Specialty Start Date End Date David Thomson, [facility] - [place] [address] [place] [address] PCP - General Family Medicine 11/22/21 Purchasing Internship Relationship Specialty Start Date End Date David Thomson, [facility] - [place] [address] [place] [address] PCP - General Family Medicine 11/22/21 Purchasing Internship Relationship Specialty Start Date End Date David Thomson [facility] - [place] [address] [place] [address] PCP - General Family Medicine 11/22/21 Purchasing Internship Relationship Specialty Start Date End Date David Thomson [facility] - [place] [address] [place] [address] PCP - General Family Medicine 11/22/21 Purchasing Internship Relationship Specialty Start Date End Date Irish Thomsonal [address] [place] [address] PCP - General Internal Medicine 08/03/22 Purchasing Internship Relationship Specialty Start Date End Date David Thomson [address] [place] [address] PCP - General Internal Medicine 08/03/22 Purchasing Internship Relationship Specialty Start Date End Date AlixIrishal [address] [place] [address] PCP - General Internal Medicine 08/03/22 Purchasing Internship Relationship Specialty Start Date End Date David Thomson, [facility] - [place] [address] [place] [address] PCP - General Family Medicine 11/22/21 Purchasing Internship Relationship Specialty Start Date End Date David Thomson APRN - [place] [address] [facility] [address] [place] [address] PCP - General Family Medicine 11/22/21 Purchasing Internship Relationship Specialty Start Date End Date Generic Provider, No Assigned [place] [address] PCP - General Drug Safety Specialist 07/21/24 Purchasing Internship Relationship Specialty Start Date End Date David Thomson APRN - [place] [address] [facility] [address] [place] [address] PCP - General Family Medicine 11/22/21 Purchasing Internship Relationship Specialty Start Date End Date David Thomson APRN - [place] [address] [facility] [address] [place] [address] PCP - General Family Medicine 11/22/21 Purchasing Internship Relationship Specialty Start Date End Date David Thomson APRN - [place] [address] [facility] [address] [place] [address] PCP - General Family Medicine 11/22/21 Team [...] section and content) DATE CREATED AUTHOR 06/10/2022 [facility] DATE CREATED AUTHOR AUTHOR'S ORGANIZ ATION 08/07/2022 [facility] DATE CREATED AUTHOR AUTHOR'S ORGANIZ ATION 10/15/2022 [employer] DATE CREATED AUTHOR AUTHOR'S ORGANIZ ATION 08/23/[address] [facility] DATE CREATED AUTHOR AUTHOR'S ORGANIZ ATION 07/29/2024 [facility] DATE CREATED AUTHOR AUTHOR'S ORGANIZ ATION 09/21/2024 [facility] DATE CREATED AUTHOR AUTHOR'S ORGANIZ ATION 01/16/2025 [facility] DATE CREATED AUTHOR AUTHOR'S ORGANIZ ATION 03/10/2025 [facility] DATE CREATED AUTHOR AUTHOR'S ORGANIZ ATION 03/24/2025 [facility] DATE CREATED AUTHOR AUTHOR'S ORGANIZ ATION 06/07/2025 [facility] DATE CREATED AUTHOR AUTHOR'S ORGANIZ ATION 07/15/2025 [facility] Source Comments (unrecognize d section and content) In the event this informatio n is protected by the Federal Confidentiality of Alcohol and Drug Abuse Patient Records regulations: The Federal rules restrict any use of the information to criminally investigate or prosecute any alcohol or drug abuse patient.[facility] Center[facility] the event this information is protected by the Federal Confidentiality of Alcohol and Drug Abuse Patient Records regulations: The Federal rules restrict any use of the information to criminally investigate or prosecute any alcohol or drug abuse patient.[facility] Center[facility] the event this information is protected by the Federal Confidentiality of Alcohol and Drug Abuse Patient Records regulations: The Federal rules restrict any use of the information to criminally investigate or prosecute any alcohol or drug abuse patient.[facility] Goals (unrecognized section and content) Goals [...] BE BASED ON THE PRIMARY CLINICAL RECORDS. [facility]. provides no warranty or guarantee of the accuracy or completeness of information in this document.
[2025-07-18 22:46] VITALS: BP 125/95; PULSE 93; TEMP 37; O2SAT 99; BMI 19.2
--- NOTE | 2025-07-19 00:16 | ED.LOWEXI1 ---
HPI HPI - Extremity Injury (Lower) General Chief Complaint: Extremity Injury, Lower Stated Complaint: PAIN/NUMBNESS L LEG Time Seen by Provider: 07/19/25 00:11 Source: patient Mode of arrival: walk-in History of Present Illness HPI Narrative: pain and burning down left leg. Calf feels numb. no weakness of the leg. States she was moving in bed and felt a pop in her back. Had surgery to lumbar spine 06/23/25 in [facility]. No fever. No loss of control of bowel or bladder. No associated abdominal pain or nausea Related Data Home Medications ?Medication ?Instructions ?Recorded ?Confirmed No Known Home Medications 07/18/25 07/18/25 Allergies Allergy/AdvReac Type Severity Reaction Status Date / Time amoxicillin Allergy Severe Anaphylaxis Verified 07/18/25 22:46 tramadol Allergy Severe Anaphylaxis Verified 07/18/25 22:46 hydroxyzine (From Atarax) Allergy Intermediate Vomiting Verified 07/18/25 22:46 Opioid HPI Opioid Management Most Recent Pain and Opioid Data: Last Pain Scale 8 Today, 01:02 Last MAR Pain Assessment Today, 01:02 Last ORT Total Score 7 03/05/25, 00:33 Last ORT Risk Category Moderate Risk 03/05/25, 00:33 Ur Phencyclidine Scrn, (NEGATIVE) Negative 02/05/25, 10:43 Review of Systems ROS Status of ROS 10 or more systems reviewed and unremarkable except as noted in history and below [facility] Medical History (Updated 07/19/25 @ 02:38 by Kan Post MD) Herniated nucleus pulposus, L5-S1, left ?M51.27 - Other intervertebral disc displacement, lumbosacral region (ICD-10) Lumbar spinal stenosis ?M48.061 - Spinal stenosis, lumbar region without neurogenic claudication (ICD-10) Hx of drug abuse ?F19.11 - Other psychoactive substance abuse, in remission (ICD-10) Atypical chest pain ?R07.89 - Other chest pain (ICD-10) Chest pain ?R07.9 - Chest pain, unspecified (ICD-10) Hyperlipemia ?E78.5 - Hyperlipidemia, unspecified (ICD-10) PTSD (post-traumatic stress disorder) ?F43.10 - Post-traumatic stress disorder, unspecified (ICD-10) Bipolar 1 disorder ?F31.9 - Bipolar disorder, unspecified (ICD-10) HTN (hypertension) ?I10 - Essential (primary) hypertension (ICD-10) Degenerative disc disease COPD (chronic obstructive pulmonary disease) ?J44.9 - Chronic obstructive pulmonary disease, unspecified (ICD-10) Hx of renal calculi ?Z87.442 - Personal history of urinary calculi (ICD-10) Family History (Updated 03/05/25 @ 00:46 by Lisa Palomares RN) Grandmother Family history of CHF (congestive heart failure) Mother Family history of COPD (chronic obstructive pulmonary disease) Family history of cancer Family history of diabetes mellitus Family history of hypertension Family history of myocardial infarction Social History Within the past year, how often did you have a drink containing alcohol: never Score interpretation: A score less than 3 is consistent with normal alcohol consumption. Smoking status: Current every day smoker Non-prescribed substance use: former substance user Highest level of school completed/degree received: GED or equivalent Are you now , , , , never or living with a partner: In a typical week, how many times do you talk on the telephone with family, friends, or neighbors: 3 or more times per week How often do you get together with friends or relatives: 3 or more times per week Little interest or pleasure in doing things: not at all Feeling down, depressed, or hopeless: not at all Feel stressed/tense/nervous/anxious/difficulty sleeping: decline to answer Gender Identity: female Exam Constitutional Vital Signs, click to edit/add: Last Vital Signs Temp 98.6 F 07/18/25 22:46 Pulse 93 H 07/18/25 22:46 Resp 20 07/18/25 22:46 BP 125/95 H 07/18/25 22:46 Pulse Ox 99 07/18/25 22:46 O2 Del Method Room Air 07/18/25 22:46 Common normals: no apparent distress, average body habitus, oriented x3, no limitations, healthy appearing, alert and well nourished [facility] Common normals: normocephalic and head/scalp atraumatic Eye Common normals: PERRL, EOMs intact bilaterally and conjunctivae normal Respiratory Common normals: normal respiratory effort, no retractions, no use of accessory muscles and clear to auscultation bilaterally Cardio Common normals: regular rate, regular rhythm, S1 normal heart sound and S2 normal heart sound GI Common normals: Normal to inspection, nondistended, normoactive bowel sounds present and soft to palpation Back & Pelvis Other: well healed incision Lumbar spine. DTRs patella 0 and equivocal. 1+ at bilat achilles. normal strength LLE Extremity Common normals: normal to inspection and full ROM Neuro Common normals: oriented x3, CN's II-XII intact bilaterally, moves all extremities and no focal motor deficits Psych Appearance: grossly normal Course Vital Signs Vital signs: Vital Signs Temperature 98.6 F 07/18/25 22:46 Pulse Rate 93 H 07/18/25 22:46 Respiratory Rate 07/18/25 22:46 Blood Pressure 125/95 H 07/18/25 22:46 Pulse Oximetry 99 07/18/25 22:46 Oxygen Delivery Method Room Air 07/18/25 22:46 Temperature 98.6 F 07/18/25 22:46 Pulse Rate 93 H 07/18/25 22:46 Respiratory Rate 20 07/18/25 22:46 Blood Pressure 125/95 H 07/18/25 22:46 Pulse Oximetry 99 07/18/25 22:46 Oxygen Delivery Method Room Air 07/18/25 22:46 MDM - Extremity Injury (Lower) MDM Narrative Medical decision making narrative: patient had surgery last month In [facility]. states she rolled over in bed and felt a pop in her back followed by burning pain left thigh and numbness left calf. No leg weakness. No loss of control or bowel or bladder. Xray with no acute findings and screws in place. Patient medicated with cocktail of magnesium, solumedrol and Neurontin and her discomfort is more tolerable. Discharged home with a prescription for Neurontin and advised to follow up with her doctor Discharge Plan Discharge Chief Complaint: Extremity Injury, Lower Clinical Impression: Acute left-sided back pain with sciatica Patient Disposition: Home, Self-Care Prescriptions / Home Meds: No Action No Known Home Medications Print Language: Divehi Instructions: Acute Low Back Pain (ED) Additional Instructions: follow up with your surgeon next week Referrals: EUFEMIA HUGGINS [Primary Care Provider, Family Practice] - 1 week
--- NOTE | 2025-07-19 00:27 | XR_ITS ---
[place] [address] Patient Name: DONALDO AMBROCIO MRN: [id number] date: 1985 Sex: F Assigned Patient Location: ER Current Patient Location: Accession/Order Number: [id number] Exam Date: 07/19/2025 00:37 Report Date: 07/19/2025 08:38 At the request of: BENEDICTO ARCHER MD Procedure: XR lumbar spine 2-3V 2 views Lumbar Spine HISTORY: Left leg numbness COMPARISON: 04/17/2025 POSTSURGICAL CHANGES: Interval L5-S1 posterior fusion with decompression. No hardware complication BONY ALIGNMENT: Adequate HYPERMOBILITY:No bending imaging. LISTHESIS:None FRACTURE: None DEGENERATIVE CHANGES: Similar degenerative changes SOFT TISSUES: Unremarkable BONY MINERALIZATION:Adequate XR/XR lumbar spine 2-3V IMPRESSION: Similar degenerative changes. No hardware complication. No acute bony findings Impression dictated by: Storm Conn M.D. 07/19/2025 8:38 AM Dictation Location: [place] Electronically authenticated by: [id number] Y Date: 07/19/2025 08:38
[2025-07-19 00:50] LABS: Hematocrit 34.8 % (36.0-48.0); Hemoglobin 11.5 g/dL (12.0-16.0); Immature Granulocytes Abs Auto 0.06 10^3/uL (0.00-0.03); Immature Granulocytes Pct Auto 0.6 % (0.0-0.5); Lymphocytes Absolute Auto 3.2 10^3/uL (1.2-3.8); Mean Corpuscular HGB Conc 33.0 g/dL (29.9-35.2); Mean Corpuscular Hemoglobin 31.1 pg (26.7-34.0); Mean Corpuscular Volume 94.1 fL (81.0-99.0); Platelet Count 475 10^3/uL (150-450); Red Blood Count 3.70 10^6/uL (4.20-5.40); White Blood Count 10.4 10^3/uL (4.0-11.0)
[2025-07-19 00:59] LABS: Anion Gap 14.3; Blood Urea Nitrogen 24.0 mg/dL (7.0-18.0); Calcium 8.4 mg/dL (8.5-10.1); Carbon Dioxide 25.6 mmol/L (21.0-32.0); Chloride 108 mmol/L (98-107); Estimated GFR (African America >60 (>=60 mL/min/1.73m^2); Estimated GFR (Non-African Ame >60 (>=60 mL/min/1.73m^2); Glucose 113 mg/dL (74-106); Potassium 3.9 mmol/L (3.5-5.1); Sodium 144 mmol/L (136-145)
[2025-07-19] MEDS: FENTANYL CITRATE/PF 100 MCG/2 ML VIAL 50 MCG IV (01:02)
[2025-07-19] MEDS: MAGNESIUM SULFATE IN WATER 2 GM/50 ML PREMIX IV (01:02)
[2025-07-19] MEDS: METHYLPREDNISOLONE SOD SUCC PF 125 MG/2 ML VIAL IVP (01:02)
[2025-07-19] MEDS: GABAPENTIN 300 MG CAPSULE PO (01:46)
[2025-07-19 03:00] VITALS: BP 127/82; PULSE 92; O2SAT 98
== END 2025-07-19 03:09 | disposition home or self-care (01) ==
PROVIDERS: Emergency Provider Internal Medicine; PCP Nurse Practitioner Family
DX: M54.32 Sciatica, left side (principal); M54.9 Dorsalgia, unspecified; Z98.890 Other specified postprocedural states; F17.200 Nicotine dependence, unspecified, uncomplicated
CPT/HCPCS: 36415; 72100; 80048; 85025; 85652; 86140; 96365; 96366; 96375; 99284; J2919; J3010; J3475